=== PATIENT | male | born 1960 | race Caucasian/White ===

== ENCOUNTER → 2017-10-29 09:28 | Outpatient (CLI) | payer OTHER, SELFPAY ==
[2017-10-29 12:32] LABS: Anion Gap 8 (5-15); BUN 21 mg/dL (7-18); BUN/Creat Ratio 16.5 RATIO (10-20); Calcium,Total 8.9 mg/dL (8.5-10.1); Chloride 102 mmol/L (98-107); Cholesterol 130 mg/dL (200); Creatinine, Serum 1.27 mg/dL (0.70-1.30); EST Glomerular Filtration Rate 62 mL/min (>60); Est Glom Filt Rate - Afr Amer 75 mL/min (>60); Glucose 215 mg/dL (74-106); High Density Lipoprotein 54 mg/dL; Potassium 4.2 mmol/L (3.5-5.1); Sodium Level 138 mmol/L (136-145); Triglycerides 83 mg/dL; Very Low Density Lipoprotein 17 mg/dL (5-40)
[2017-10-29 12:43] LABS: Hemoglobin A1c 7.2 % (4.2-6.3)
== END ==
PROVIDERS: Family Provider Family Medicine; PCP Family Medicine; Visit Provider Family Medicine
DX: E11.9 Type 2 diabetes mellitus without complications (principal); E78.00 Pure hypercholesterolemia, unspecified; N18.9 Chronic kidney disease, unspecified
CPT/HCPCS: 36415; 80048; 80061; 83036

== ENCOUNTER → 2018-06-29 09:43 | Outpatient (CLI) | payer OTHER, SELFPAY ==
[2018-06-29 11:04] LABS: Absolute Lymphocyte Count 1.73 X10^3/ul (0.83-4.51); Absolute Neutrophil Count 3.2 X10^3/uL (2.0-7.7); Basophil# 0.03 X10^3/uL; Basophil% 0.5 % (0-1); Eosinophil# 0.13 X10^3/uL; Eosinophils% 2.3 % (0-5); Hematocrit 45.7 % (40-54); Hemoglobin 15.9 g/dl (13.0-16.5); Lymphocyte # 1.73 X10^3/ul (4.0); Lymphocyte % 30.7 % (19-41); Mean Corp Hgb Conc 34.8 g/gl (32-36); Mean Corpuscular Hgb 31.7 pg (27.0-32.0); Mean Corpuscular Volume 91.2 fL (80-94); Mean Platelet Vol. 9.1 fl (6.2-12.0); Monocyte# 0.49 X10^3/uL; Monocyte% 8.7 % (0-10); Neutrophil # 3.24 X10^3/uL (2.7-7.7); Neutrophil % 57.6 % (47-70); Platelet Count 208 K/mm3 (150-450); RBC Distribution Width CV 12.6 % (11.6-14.6); RBC Distribution Width SD 40.9 fl (35.1-43.9); Red Blood Count 5.01 M/mm3 (4.6-6.2); White Blood Count 5.6 K/mm3 (4.4-11.0)
[2018-06-29 11:05] LABS: POSITIVE COUNT NO; POSITIVE DIFFERENTIAL NO; POSITIVE MORPHOLOGY NO
[2018-06-29 11:40] LABS: ALB/GLOB Ratio 0.9 RATIO (0.9-2.4); AST(SGOT) 20 U/L (15-37); Alanine Aminotransfer ALT/SGPT 34 U/L (16-61); Albumin, Serum 3.3 g/dL (3.2-5.0); Alkaline Phosphatase 53 U/L (45-117); Anion Gap 6 (5-15); BUN 19 mg/dL (7-18); BUN/Creat Ratio 15.3 RATIO (10-20); Calcium,Total 8.2 mg/dL (8.5-10.1); Chloride 106 mmol/L (98-107); Cholesterol 126 mg/dL (200); Creatinine, Serum 1.24 mg/dL (0.70-1.30); EST Glomerular Filtration Rate 64 mL/min (>60); Est Glom Filt Rate - Afr Amer 77 mL/min (>60); Globulin 3.7 g/dL (2.2-4.2); Glucose 201 mg/dL (74-106); High Density Lipoprotein 51 mg/dL; Potassium 4.1 mmol/L (3.5-5.1); Sodium Level 138 mmol/L (136-145); Thyroid Stim Hormone (TSH) 1.65 uIU/mL (0.358-3.74); Triglycerides 73 mg/dL; Very Low Density Lipoprotein 15 mg/dL (5-40)
[2018-06-29 11:43] LABS: Hemoglobin A1c 7.1 % (4.2-6.3)
== END ==
PROVIDERS: Family Provider Family Medicine; PCP Family Medicine; Referring Provider Family Medicine; Visit Provider Family Medicine
DX: E11.9 Type 2 diabetes mellitus without complications (principal); E78.00 Pure hypercholesterolemia, unspecified; F32.9 Major depressive disorder, single episode, unspecified
CPT/HCPCS: 36415; 80053; 80061; 83036; 84443; 85025

== ENCOUNTER → 2019-06-30 16:32 | Outpatient (CLI) | payer OTHER, SELFPAY ==
[2019-06-30 17:32] LABS: Absolute Lymphocyte Count 2.01 X10^3/uL (0.83-4.51); Absolute Neutrophil Count 5.7 X10^3/uL (2.0-7.7); Basophil# 0.07 X10^3/uL; Basophil% 0.8 % (0-1); Eosinophil# 0.31 X10^3/uL; Eosinophils% 3.5 % (0-5); Hematocrit 47.2 % (40-54); Hemoglobin 15.5 g/dL (13.0-16.5); Lymphocyte # 2.01 X10^3/ul (4.0); Mean Corp Hgb Conc 32.8 g/dL (32-36); Mean Corpuscular Hgb 30.3 pg (27.0-32.0); Mean Corpuscular Volume 92.4 fL (80-94); Monocyte# 0.62 X10^3/uL; Monocyte% 7.1 % (0-10); NRBC Flagged by Analyzer 0 % (0-5); Neutrophil # 5.71 X10^3/uL (2.7-7.7); Neutrophil % 65.4 % (47-70); Platelet Count 210 K/mm3 (150-450); RBC Distribution Width CV 12.1 % (11.6-14.6); RBC Distribution Width SD 41.2 fl (35.1-43.9); Red Blood Count 5.11 M/mm3 (4.6-6.2); White Blood Count 8.7 K/mm3 (4.4-11.0)
[2019-06-30 18:24] LABS: AST(SGOT) 16 U/L (15-37); Alanine Aminotransfer ALT/SGPT 37 U/L (16-61); Albumin, Serum 3.6 g/dL (3.2-5.0); Alkaline Phosphatase 66 U/L (45-117); Anion Gap 7 (5-15); BUN 29 mg/dL (7-18); Calcium,Total 9.2 mg/dL (8.5-10.1); Chloride 104 mmol/L (98-107); Creatinine, Serum 1.45 mg/dL (0.70-1.30); EST Glomerular Filtration Rate 53 mL/min (>60); Est Glom Filt Rate - Afr Amer 64 mL/min (>60); Globulin 3.7 g/dL (2.2-4.2); Glucose 245 mg/dL (74-106); Protein, Total 7.3 g/dL (6.4-8.2); Sodium Level 138 mmol/L (136-145); Thyroid Stim Hormone (TSH) 2.32 uIU/mL (0.358-3.74)
== END ==
PROVIDERS: Family Provider Family Medicine; PCP Family Medicine; Visit Provider Family Medicine
DX: E11.9 Type 2 diabetes mellitus without complications (principal); I10 Essential (primary) hypertension; E78.00 Pure hypercholesterolemia, unspecified
CPT/HCPCS: 36415; 80053; 84443; 85025

== ENCOUNTER → 2019-07-28 14:56 | Outpatient (CLI) | payer OTHER, SELFPAY ==
[2019-07-28 17:37] LABS: Anion Gap 7 (5-15); BUN 24 mg/dL (7-18); BUN/Creat Ratio 18.2 RATIO (10-20); Calcium,Total 8.9 mg/dL (8.5-10.1); Chloride 107 mmol/L (98-107); Creatinine, Serum 1.32 mg/dL (0.70-1.30); EST Glomerular Filtration Rate 59 mL/min (>60); Est Glom Filt Rate - Afr Amer 71 mL/min (>60); Glucose 103 mg/dL (74-106); Potassium 3.7 mmol/L (3.5-5.1); Sodium Level 138 mmol/L (136-145)
== END ==
PROVIDERS: Family Provider Family Medicine; PCP Family Medicine; Visit Provider Family Medicine
DX: I10 Essential (primary) hypertension (principal)
CPT/HCPCS: 36415; 80048

== ENCOUNTER → 2020-07-06 16:25 | Outpatient (CLI) | payer OTHER, SELFPAY ==
[2020-07-06 16:10] VITALS: BMI 41.3
[2020-07-06 17:41] LABS: Microalbumin:Creatinine Ratio 57.1 mg/g CRE (<30 mg/g CRE)
[2020-07-06 17:53] LABS: AST(SGOT) 26 U/L (15-37); Alanine Aminotransfer ALT/SGPT 44 U/L (16-61); Albumin, Serum 3.6 g/dL (3.2-5.0); Alkaline Phosphatase 61 U/L (45-117); Anion Gap 6 (5-15); BUN 33 mg/dL (7-18); BUN/Creat Ratio 24.1 RATIO (10-20); Calcium,Total 8.7 mg/dL (8.5-10.1); Chloride 107 mmol/L (98-107); Cholesterol 139 mg/dL (200); Creatinine, Serum 1.37 mg/dL (0.70-1.30); EST Glomerular Filtration Rate 56 mL/min (>60); Est Glom Filt Rate - Afr Amer 68 mL/min (>60); Globulin 3.7 g/dL (2.2-4.2); Glucose 142 mg/dL (74-106); High Density Lipoprotein 48 mg/dL; Potassium 3.8 mmol/L (3.5-5.1); Protein, Total 7.3 g/dL (6.4-8.2); Sodium Level 141 mmol/L (136-145); Thyroid Stim Hormone (TSH) 1.99 uIU/mL (0.358-3.74); Triglycerides 155 mg/dL; Very Low Density Lipoprotein 31 mg/dL (5-40)
== END ==
PROVIDERS: PCP Family Medicine; Referring Provider Internal Medicine Endocrinology, Diabetes & Metabolism; Visit Provider Internal Medicine Endocrinology, Diabetes & Metabolism
DX: E11.9 Type 2 diabetes mellitus without complications (principal); I10 Essential (primary) hypertension; E78.2 Mixed hyperlipidemia
CPT/HCPCS: 36415; 80053; 80061; 82043; 82570; 84443

== ENCOUNTER → 2021-06-15 | Outpatient (CLI) | payer OTHER, SELFPAY | END | disposition home or self-care (01) | PROVIDERS: PCP Family Medicine; Referring Provider Family Medicine; Visit Provider Family Medicine | DX: Z20.822 Contact with and (suspected) exposure to COVID-19 (principal) | CPT/HCPCS: 87635; U0005; U0003 ==

== ENCOUNTER → 2021-08-16 15:12 | Outpatient (CLI) | payer OTHER, SELFPAY ==
--- NOTE | 2021-08-16 15:20 | RAD_ITS ---
STUDY: X-RAY - LUMBAR SPINE REASON FOR EXAM: Male, 61 years old. Back pain TECHNIQUE: 3 view(s) of the lumbar spine were obtained. COMPARISON: None FINDINGS: Normal lumbar lordosis. There is no substantial scoliosis. There is a normal alignment of the vertebrae. There is multilevel endplate spondylosis of the lumbar vertebrae. Normal disc space heights. The soft tissue structures are unremarkable. RAD/Lumbar Spine 2 or 3 Views IMPRESSION: Degenerative changes of the spine, as detailed above. Electronically Signed: Rosales Hidalgo MD at 12:20 EST , Service support ,
== END ==
PROVIDERS: PCP Family Medicine; Referring Provider Internal Medicine Endocrinology, Diabetes & Metabolism; Visit Provider Internal Medicine Endocrinology, Diabetes & Metabolism
DX: M54.50 Low back pain, unspecified (principal); R20.2 Paresthesia of skin
CPT/HCPCS: 72100

== ENCOUNTER → 2021-09-06 12:09 | Outpatient (CLI) | payer OTHER, SELFPAY ==
--- NOTE | 2021-09-06 12:50 | RAD_ITS ---
STUDY: X-RAY - LEFT KNEE REASON FOR EXAM: Male, 61 years old. Knee pain. TECHNIQUE: 4 view(s) of the knee. COMPARISON: None. FINDINGS: Osteopenia. Normal visualized distal femur. Normal visualized proximal tibia and fibula. Normal proximal tibiofibular articulation. Mild medial, lateral and patellofemoral compartment arthrosis. Lateral tilt and subluxation of the patella on the sunrise view. The soft tissue structures are unremarkable. RAD/Knee 4 or More Views IMPRESSION: Osteopenia with mild tricompartmental arthrosis. No acute finding. Electronically Signed: Farhad West MD at 10:35 EST , Service support ,
== END ==
PROVIDERS: PCP Family Medicine; Referring Provider Family Medicine; Visit Provider Family Medicine
DX: M25.562 Pain in left knee (principal)
CPT/HCPCS: 73564

== ENCOUNTER → 2022-01-17 | Outpatient (CLI) | payer OTHER, SELFPAY ==
[2022-01-17 17:29] LABS: Microalbumin,Random Urine 53.5 mg/L (NO RANGE EST.)
[2022-01-17 17:47] LABS: Vitamin D,25 Hydroxy 57.7 ng/mL
[2022-01-17 17:50] LABS: Vitamin B12 550 pg/mL (211-911)
[2022-01-17 17:56] LABS: AST(SGOT) 22 U/L (15-37); Alanine Aminotransfer ALT/SGPT 42 U/L (16-61); Albumin, Serum 3.5 g/dL (3.2-5.0); Alkaline Phosphatase 71 U/L (45-117); Anion Gap 7 (5-15); BUN 24 mg/dL (7-18); BUN/Creat Ratio 18.3 RATIO (10-20); Calcium,Total 8.9 mg/dL (8.5-10.1); Chloride 107 mmol/L (98-107); Cholesterol 123 mg/dL (200); Creatinine, Serum 1.31 mg/dL (0.70-1.30); EST Glomerular Filtration Rate 59 mL/min (>60); Est Glom Filt Rate - Afr Amer 71 mL/min (>60); Globulin 3.5 g/dL (2.2-4.2); Glucose 230 mg/dL (74-106); High Density Lipoprotein 50 mg/dL; Sodium Level 139 mmol/L (136-145); Thyroid Stim Hormone (TSH) 1.53 uIU/mL (0.358-3.74); Triglycerides 117 mg/dL; Very Low Density Lipoprotein 23 mg/dL (5-40)
== END | disposition home or self-care (01) ==
LOC: BIMLAB 16:20
PROVIDERS: Nurse Practitioner Family; PCP Family Medicine; Referring Provider Internal Medicine Endocrinology, Diabetes & Metabolism; Visit Provider Internal Medicine Endocrinology, Diabetes & Metabolism
DX: E10.65 Type 1 diabetes mellitus with hyperglycemia (principal); E66.01 Morbid (severe) obesity due to excess calories; Z68.41 Body mass index [BMI] 40.0-44.9, adult; I10 Essential (primary) hypertension; E78.2 Mixed hyperlipidemia
CPT/HCPCS: 36415; 80053; 80061; 82043; 82306; 82570; 82607; 84443

== ENCOUNTER → 2022-07-24 | Outpatient (CLI) | payer OTHER, SELFPAY ==
[2022-07-24 18:15] LABS: Absolute Lymphocyte Count 1.63 X10^3/uL (0.83-4.51); Absolute Neutrophil Count 5.2 X10^3/uL (2.0-7.7); Basophil# 0.05 X10^3/uL; Basophil% 0.6 % (0-1); Eosinophil# 0.22 X10^3/uL; Eosinophils% 2.8 % (0-5); Hematocrit 43.4 % (40-54); Hemoglobin 14.3 g/dL (13.0-16.5); Lymphocyte # 1.63 X10^3/ul (0.83-4.51); Mean Corp Hgb Conc 32.9 g/dL (32-36); Mean Corpuscular Hgb 31.5 pg (27.0-32.0); Mean Corpuscular Volume 95.6 fL (80-94); Mean Platelet Vol. 8.5 fl (6.2-12.0); Monocyte# 0.69 X10^3/uL; Monocyte% 8.9 % (0-10); NRBC Flagged by Analyzer 0 % (0-5); Neutrophil # 5.15 X10^3/uL (2.7-7.7); Neutrophil % 66.4 % (47-70); Platelet Count 187 K/mm3 (150-450); RBC Distribution Width CV 11.8 % (11.6-14.6); RBC Distribution Width SD 41.3 fl (35.1-43.9); Red Blood Count 4.54 M/mm3 (4.6-6.2); White Blood Count 7.8 K/mm3 (4.4-11.0)
[2022-07-24 18:43] LABS: ALB/GLOB Ratio 0.9 RATIO (0.9-2.4); AST(SGOT) 17 U/L (15-37); Alanine Aminotransfer ALT/SGPT 43 U/L (16-61); Albumin, Serum 3.3 g/dL (3.2-5.0); Alkaline Phosphatase 57 U/L (45-117); Anion Gap 6 (5-15); BUN 23 mg/dL (7-18); BUN/Creat Ratio 17.8 RATIO (10-20); Chloride 107 mmol/L (98-107); Creatinine, Serum 1.29 mg/dL (0.70-1.30); EST Glomerular Filtration Rate 60 mL/min (>60); Est Glom Filt Rate - Afr Amer 73 mL/min (>60); Globulin 3.8 g/dL (2.2-4.2); Glucose 120 mg/dL (74-106); Potassium 3.8 mmol/L (3.5-5.1); Protein, Total 7.1 g/dL (6.4-8.2); Sodium Level 141 mmol/L (136-145)
== END | disposition home or self-care (01) ==
LOC: BFHLAB 15:57
PROVIDERS: PCP Family Medicine; Visit Provider Family Medicine
DX: E11.9 Type 2 diabetes mellitus without complications (principal); I10 Essential (primary) hypertension
CPT/HCPCS: 36415; 80053; 85025

== ENCOUNTER 2022-08-31 15:30 | Outpatient (RCR) | payer OTHER, SELFPAY ==
--- NOTE | 2022-07-11 16:22 | HP.PTEVAL_ITS ---
Patient's Visit Information VLAD JUSTICE is a 62 year old M referred to Physical Therapy by Dr. Chris Booker MD with a diagnosis of spondylosis. Date of Evaluation: 07/11/22 Physical Therapist: Martín Preciado, DPT, OCS, CSCS - Visit Plan Frequency: 2-3x /Week Duration: 4-6 Weeks Plan: 2-3x/week for 4-6 weeks for. 1. eil and mobs, ensure this is the proper repeated motion based on pain response and ROM. 2. rollout and stretch quads and HS B. 3. core strength progressing to yoga stretching back and legs. All to HEP. Pt may bring TENS for education and to get back brace from store - Subjective Stenosis , OA and bulging herniation in LB. Gets pain around tailbone and back of upper legs B. It is mostly constant. sitting in a soft chair or lying down gets rid of it. This has been there since December as he fell off platform in [facility], did not hurt right away but did in December(He missed a bottom step and landed on butt). Since then he can hardly walk in am and needs to sit in soft chair in am to feel better. Meds: nebulotone whcih helps some. Had six injections in back last Sunday steroid and it helped very little. Although today he had very little pain this morning. Takes antiinflammotry in am and pm. Then he says he might get a few hours of pain relief sitting in chair. 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 Basic ADLs are getting done, Live alone and has steps whcih he can do with pain. 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 Outdoor work is painful and needs to sit. - Pain LB and legs Pain Intensity (Out of 10): 0 Pain Intensity Range: 0, 9 Comment: wearing belt helps - Objective Posture is flat lordosis, kyphotic T/S. LB AROM ext max limited, R SB limited greater than L and painful R let hip, flexion very tight, no pain. reflexes 1/3 patella and achilles B. sensation LE WBL to gross light touch in LE. Strength LE 4/5 B without myotomal abnormalities. quads and HS are max tight. repeated ext in lying seems to improve pain and ROM in extension. - Balance/Special Test Scores Oswestry Low Back Score: 11 - Goals Goal 1:: Full ROM L/S including symmetry and no pain with movement Goal Time Frame: 4-6 Weeks Goal 2:: Patient feel pain is 75% improved adn 2/10 at worst Goal Time Frame: 4-6 Weeks Goal 3:: Work with pain no greater than 2/10 Goal Time Frame: 2-4 Weeks Goal 4:: I management of condition ex and posture. Goal Time Frame: 4-6 Weeks Goal 5:: oswestry score 5 or better Goal 6:: Pt may bring tens for education and is to get back brace from store. - Rehabilitation Potential Physical Therapy Diagnosis: Discal pathologies and spondylosis Rehabilitation Potential: Fair - Anticipated Interventions Patient/Client Instruction: Educate patient on: Condition, Plan of Care For the Purpose of:: To decrease pain, To increase ROM, To improve muscle performance and motor function, To increase tolerance to activity/condition/position Therapeutic Exercise to Include: Strength training, Agility training, Postural training, Flexibilty training, Passive ROM, Active ROM, Dynamic Lumbar Stabilization For the Purpose of:: To decrease pain, To increase ROM, To improve muscle performance and motor function, To increase tolerance to activity/condition/position, To improve ability of physical actions for home/community/work/leisure Manual Therapy Techniques to Include: Mobilization, Passive ROM, Soft tissue mobilization For the Purpose of:: To increase ROM TENS: Yes For the Purpose of:: To decrease pain Thank you for the opportunity to evaluate your patient. For Medicare and Medicare HMO plans, please review the plan of care and approve it. It will need to be FAXED BACK to us at [phone] for Medicare purposes. For Medicare only, by signing this I certify the plan of care. Please let me know if there are questions or concerns regarding this plan of care. Physician Signature: Date:
--- NOTE | 2022-08-31 16:03 | HP.PTDCSUM ---
It has been my pleasure to treat VLAD JUSTICE referred by Dr. Chris Booker MD, with the diagnosis of spondylosis for a total of 14 visit(s). Discharge Date: 08/31/22 Please see the following information for a summary of their discharge status. Subjective: Saw Dr. Cancino Sunday and bumped up his Lyrica. Still having hard time walking due to leg pain in am for one hour then it loosens up until later in the day. Pt feels better today except this am. Sleep is good and no pain lying down. sitting down i soft chair alleviates pain. work is Ok after first hour in the am, evenings are OK much of time. Not consistent with HEP. Pain is in L leg in am, no unusual back pain. Not much pain when he is on vacation. LB and legs Pain Intensity (Out of 10): 10 % Improvement: 10 Objective/Function: ext is good without pain, flexion is fine, SB is not painful. Walks i and well today, it is a good day. Has some signs of R hip OA whcih might be appropriate to checkout, +FADDIR and limited IR ROM. Worst is first thing in the am. Goal 1:: Full ROM L/S including symmetry and no pain with movement Goal Progress: Goal Met Goal 2:: Patient feel pain is 75% improved adn 2/10 at worst Goal Progress: Not Progressing Goal 3:: Work with pain no greater than 2/10 Goal Progress: Progressing Goal 4:: I management of condition ex and posture. Goal Progress: Goal Met Goal 5:: oswestry score 5 or better Goal Progress: Not Progressing Goal 6:: Pt may bring tens for education and is to get back brace from store. Goal Progress: NA Plan: d/c to HEp. Pt frustrated with lack f progress buit will try lyrical dosage and another injection adn continue with HEP. If no other options and hip is clear, more water therapy or more aggressive strength may be helpful in gy,/ If there are questions or concerns regarding this patient's physical therapy, please feel free to call me at [phone]. Thank you for the referral of this patient. Sincerely, Martín Preciado, DPT, OCS, CSCS Balance/Gait/Functional tests - Balance/Special Test Scores Oswestry Low Back Score: 15
== END 2022-08-31 19:00 | disposition home or self-care (01) ==
LOC: PT 15:30
PROVIDERS: PCP Family Medicine; Referring Provider Internal Medicine Endocrinology, Diabetes & Metabolism; Visit Provider Internal Medicine Endocrinology, Diabetes & Metabolism
DX: M47.816 Spondylosis without myelopathy or radiculopathy, lumbar region (principal)
CPT/HCPCS: 97110; 97113; 97140; 97161; 97164; 97530

== ENCOUNTER → 2023-01-18 | Outpatient (CLI) | payer OTHER, SELFPAY ==
[2023-01-18 16:40] LABS: Bacteria 0 SEEN /hpf (None Seen); Mucous, Urine 0 SEEN /hpf (<or=2+); Red Blood Cells-Urine 0 SEEN /hpf (0-5); Squamous Epithelial Cells - UA 0 SEEN /hpf (0-5); White Blood Cells 0 SEEN /hpf (0-5)
[2023-01-18 18:08] LABS: Absolute Lymphocyte Count 1.32 X10^3/uL (0.83-4.51); Basophil# 0.07 X10^3/uL; Basophil% 1.1 % (0-1); Eosinophil# 0.11 X10^3/uL; Eosinophils% 1.8 % (0-5); Hematocrit 45.3 % (40-54); Hemoglobin 15.1 g/dL (13.0-16.5); Lymphocyte # 1.32 X10^3/ul (0.83-4.51); Lymphocyte % 21.6 % (19-41); Mean Corp Hgb Conc 33.3 g/dL (32-36); Mean Corpuscular Hgb 30.9 pg (27.0-32.0); Mean Corpuscular Volume 92.6 fL (80-94); Mean Platelet Vol. 8.9 fl (6.2-12.0); Monocyte# 0.63 X10^3/uL; Monocyte% 10.3 % (0-10); NRBC Flagged by Analyzer 0 % (0-5); Neutrophil # 3.97 X10^3/uL (2.7-7.7); Neutrophil % 65.2 % (47-70); Platelet Count 201 K/mm3 (150-450); RBC Distribution Width CV 12.4 % (11.6-14.6); RBC Distribution Width SD 42.3 fl (35.1-43.9); Red Blood Count 4.89 M/mm3 (4.6-6.2); White Blood Count 6.1 K/mm3 (4.4-11.0)
[2023-01-18 18:38] LABS: Color, Urine Yellow (Yellow); Glucose, Dipstick 250 mg/dl (Normal); Ketone-Dipstick Negative (Negative); Leukocyte Esterase-Dipstick Negative /ul (Negative); Nitrite-Dipstick Negative (Negative); Occult Blood-Urine Negative /ul (Negative); Protein-Dipstick 30 mg/dl (Negative); Specific Gravity, Urine 1.025 (1.002-1.030); Urine Bilirubin Dipstick Negative (Negative); Urine Clarity Clear (Clear); Urine Urobilinogen Normal (Normal)
[2023-01-18 19:15] LABS: Hemoglobin A1c 6.9 % (3.8-5.6)
[2023-01-18 19:19] LABS: Microalbumin:Creatinine Ratio 115.8 mg/g CRE (<30 mg/g CRE); Protein, Urine (Random) 39.6 mg/dL (<11.9); Protein:Creat Ratio 261 mg/g CRE (0-200)
[2023-01-18 19:20] LABS: ALB/GLOB Ratio 1.1 RATIO (0.9-2.4); AST(SGOT) 32 U/L (15-37); Alanine Aminotransfer ALT/SGPT 51 U/L (16-61); Albumin, Serum 3.8 g/dL (3.2-5.0); Alkaline Phosphatase 57 U/L (45-117); Anion Gap 6 (5-15); BUN 23 mg/dL (7-18); Calcium,Total 9.2 mg/dL (8.5-10.1); Chloride 109 mmol/L (98-107); Cholesterol 129 mg/dL (200); Creatinine, Serum 1.44 mg/dL (0.70-1.30); EST Glomerular Filtration Rate 53 mL/min (>60); Est Glom Filt Rate - Afr Amer 64 mL/min (>60); Globulin 3.5 g/dL (2.2-4.2); Glucose 142 mg/dL (74-106); High Density Lipoprotein 47 mg/dL; Phosphorus 2.6 mg/dL (2.5-4.9); Potassium 3.6 mmol/L (3.5-5.1); Protein, Total 7.3 g/dL (6.4-8.2); Sodium Level 140 mmol/L (136-145); T4 Free Direct 0.97 ng/dL (0.76-1.46); Thyroid Stim Hormone (TSH) 1.63 uIU/mL (0.358-3.74); Triglycerides 160 mg/dL; Very Low Density Lipoprotein 32 mg/dL (5-40)
[2023-01-18 19:36] LABS: Vitamin D,25 Hydroxy 73.8 ng/mL
[2023-01-19 10:08] LABS: PTHIN 28.1 pg/mL (18.4-80.1)
[2023-01-22 18:07] LABS: Anti-Thyroglobulin AB < 1.0 IU/mL (0.0-0.9); Thyroglobulin, Serum Qt. 26.7 ng/mL (1.4-29.2); Thyroid Peroxidase AB 22 IU/mL (0-34)
== END | disposition home or self-care (01) ==
LOC: MFPLAB 16:29
PROVIDERS: PCP Family Medicine; Visit Provider Family Medicine
DX: N18.30 Chronic kidney disease, stage 3 unspecified (principal); E11.69 Type 2 diabetes mellitus with other specified complication; E11.59 Type 2 diabetes mellitus with other circulatory complications; E11.22 Type 2 diabetes mellitus with diabetic chronic kidney disease; E55.9 Vitamin D deficiency, unspecified
CPT/HCPCS: 80053; 80061; 81001; 82043; 82306; 82570; 83036; 83970; 84100; 84156; 84432; 84439; 84443; 85025; 86376; 86800

== ENCOUNTER → 2023-01-23 | Outpatient (CLI) | payer OTHER, SELFPAY ==
--- NOTE | 2023-01-23 09:00 | US_ITS ---
STUDY: THYROID ULTRASOUND REASON FOR EXAM: Male, 63 years old. Nodule. TECHNIQUE: Ultrasound evaluation of the thyroid was performed with real-time and static santana-scale imaging. COMPARISON: None. FINDINGS: RIGHT LOBE: The right lobe of the thyroid gland measures 5.2 x 2.1 x 2.2 cm. There is a homogeneous echotexture. In the mid to lower pole there is a 0.3 x 0.4 x 0.3 cm hypoechoic ill-defined nodule. This appears taller than it is wide in the lower pole there is a 0.4 x 0.3 x 0.3 cm hyperechoic nodule without acoustic shadowing. Normal vascularity on Doppler imaging. LEFT LOBE: The left lobe of the thyroid gland measures 3.6 x 1.3 x 1.5 cm. There is a homogeneous echotexture. There are no demonstrated solid, cystic or complex lesions. Normal vascularity on Doppler imaging. There is limited evaluation of left thyroid due to its extension below the left clavicle secondary to body habitus. ISTHMUS: The isthmus measures 0.3 cm. The regional lymph nodes are normal. US/Thyroid IMPRESSION: 1. Limited evaluation due to body habitus. 2. 2. Small nodules in the right thyroid. 3. The hypoechoic nodule seen in the mid thyroid is considered highly suspicious right BI-RADS categorization, TR 5. No FNA or follow-up is necessary given its small size. 4. The echogenic nodule is considered mildly suspicious, TR 5. 3. No FNA or follow-up is required due to its small size. Electronically Signed: Jarad Page DO at 17:08 EDT ,
--- NOTE | 2023-01-23 12:39 | STRESSREP ---
Stress Test Report Pharmacologic myocardial perfusion stress test. 63-year-old man for preoperative cardiac evaluation Resting EKG demonstrates sinus rhythm with a rate of 76 bpm and an incomplete right bundle branch block. Resting blood pressure is 130/72 mmHg. 0.4 mg of regadenoson was infused per usual protocol followed by rapid intravenous saline flush injection. Continuous EKG monitoring was performed. The maximum heart rate was 104 bpm which was 66% of max impacted heart rate the maximum workload was 1 metabolic equivalent. At rest there were no ST or T wave changes noted to suggest ischemia and at peak infusion nonspecific ST changes were noted which did not meet the criteria for ischemia. No clinical angina is noted. The final blood pressure was 124/72 mmHg. Myocardial perfusion protocol. 14.3 mCi of technetium 99m sestamibi was injected at rest. 0.4 mg of regadenoson was infused per usual protocol. At peak infusion 44.6 mCi of technetium 99m sestamibi was injected stress images were obtained stress and rest images were reconstructed and compared in the short axis vertical long and horizontal long axis. Gated images were also obtained. Perfusion SPECT analysis: Review of the stress images demonstrate normal uptake of tracer noted in all areas of the myocardium. The resting images similar demonstrated normal uptake of tracer noted in all areas of the myocardium. No areas of reversibility are noted to suggest ischemia and no previous infarct is noted. Gated SPECT analysis: The gated ejection fraction is 58%. Conclusion: Normal pharmacologic myocardial perfusion stress test. Preserved ejection fraction.
== END | disposition home or self-care (01) ==
LOC: CVS 06:36
PROVIDERS: PCP Family Medicine; Referring Provider Family Medicine; Visit Provider Family Medicine
DX: E04.1 Nontoxic single thyroid nodule (principal); R94.31 Abnormal electrocardiogram [ECG] [EKG]
CPT/HCPCS: 76536; 78452; 93017; A9500; A4216; J2785

== ENCOUNTER → 2023-03-29 | Outpatient (CLI) | payer OTHER, SELFPAY ==
--- NOTE | 2023-03-29 11:40 | NM_ITS ---
CLINICAL: 63-year-old diabetic male with history of early satiety. SEMI-SOLID PHASE 99m Tc SULFUR COLLOID GASTRIC EMPTYING STUDY COMPARISON: None available FINDINGS: The patient was administered 1.1 mCi of 99m Tc sulfur colloid mixed with oatmeal and consumed per os. Image acquisitions in the anterior-posterior projections were obtained for 60 minutes. There is prompt visualization of the stomach. There is no gastroesophageal reflux identified. The T ? raw data emptying was calculated to be 26.99 minutes, (Normal: 12-56 minutes). NM/Gastric Emptying Study IMPRESSION: 1. NORMAL 99m Tc sulfur colloid semi-solid phase (oatmeal) gastric emptying imaging examination. A. There is normal and preserved semi-solid phase gastric emptying compared to normal controls. (Shubham et al, J Nucl Med Tech 38: 186, 2010). Electronically Signed: Carlin Kenyon, at 21:09 EDT ,
== END | disposition home or self-care (01) ==
PROVIDERS: PCP Family Medicine; Referring Provider Family Medicine; Visit Provider Family Medicine
DX: R68.81 Early satiety (principal); E11.649 Type 2 diabetes mellitus with hypoglycemia without coma
CPT/HCPCS: 78264; A9541

== ENCOUNTER 2023-05-15 08:30 | Outpatient (RCR) | payer OTHER, SELFPAY ==
--- NOTE | 2023-04-11 14:09 | HP.PTEVAL_ITS ---
Patient's Visit Information Visit Information Visit Information: VLAD JUSTICE is a 63 year old M referred to Physical Therapy by NIK JACKSON with a diagnosis of L45 POST LUM FUSION W/INSTRU AND DECOMPRESSION. Date of Evaluation: 04/11/23 Physical Therapist: Carley Dickinson, PT, Cert MDT Visit Plan Frequency: 3x /Week Duration: 4-6 Weeks Plan: POSTURE CORRECTION/STRENGTHENING, INSTRUCTION IN APPROPRIATE BODY MECHANICS AND ACTIVITY MODIFICATIONS. 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 CONDITIONING FOR RETURN TO WORK. DLS STARTING WITH A NEUTRAL SPINE PROGRESSING ROM TOLERATED. ANGEL LE ROM, STRETCHING AND STRENGTHENING. HEP INSTRUCTION. 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 A LOT OF LIFTING IS INVOLVED. CURRENTLY OFF WORK. RTW PLANNED 05/16/23. Present symptoms: NO SX'S UNLESS ON FEET TOO LONG THEN BACK AND HIPS ACHE. ON LYRICA NOW. TRIED TO GO OFF OF IT FOR A WK AND ACHING IN LEGS (INCLUDING CALF'S) RETURNED SO WENT BACK ON IT. PATIENT REPORTS HE COULD BARELY WALK BEFORE SX AND RELIEF WAS IMMEDIATE AFTER SURGERY. Present since: NOVEMBER 2021 Pain Scale: WORST 4/10, LEAST 0/10 Currently: 0/10 Is it getting better, worse or staying the same: GETTING BETTER Commenced as a result of: FALL OFF OF A PLATFORM AT WORK. Symptoms at onset: LLE ACHING ABOUT 1 MONTH AFTER FALL Worse: STANDING AND WALKING Better: SITTING Disturbed sleep: SOMETIMES Previous history/Previous treatment: PATIENT REPORTS A HISTORY OF CHRONIC LBP TREATED WITH CHIROPRACTIC. AFTER FALL TRIED AQUATIC PT AND HARIS'S BUT STILL ENDED UP NEEDING SURGERY. Treatment this episode: POSTERIOR LUMBAR FUSION L45 WITH INSTRUMENTATION AND DECOMPRESSION ON 02/13/23 Gait: TIME AND DISTANCE LIMITED. GETS ACHING WITH 30 MIN WALK PMH/Recent major surgery: IDDM. L MENISCUS REPAIR. ANGEL CTR. OTHER: PHYSICIAN RESTRICTION - NO LIFTING > 30 TO 40 LBS UNTIL 05/16/23 THEN NO RESTRICTIONS. Objective Objective: Sitting/Standing Posture: FAIR. R SHLD LEVEL HIGHER THAN LEFT. NORMAL LORDOSIS. NO RELEVANT LATERAL SHIFT. Active Correction of posture: BETTER. PATIENT RESPONDS WELL TO PASSIVE LUMBAR SUPPORT IN SITITNG IN CLINIC TODAY. Other Observations: INDEP GAIT AND TRANSFERS Sensory deficit: ANGEL LE LIGHT TOUCH SENSATION GROSSLY INTACT AND SYMMETRICAL ROM deficit: ANGEL LE HS AND GASTROC SOLEUS TIGHTNESS Motor deficit: ANGEL LE'S GROSSLY 5/5 WITH MMT'ING EXCEPT HIPS 4/5 Dural Signs: NEGATIVE ANGEL LE'S. Lumbar mvmt loss: flex - MOD ext - MOD TO KATINA R SG - KATINA L SG - MOD Core strength: POOR TREATMENT: NEUROMUSCULAR REEDUCATION - RETRAINING OF MVMT AND POSTURE FOR SITTING, LYING AND STANDING ACTIVITIES. Balance/Special Test Scores Oswestry Low Back Score: 17 Goals Goal 1:: DECREASE C/O LOW BACK PAIN (RECENT LE SX'S BUT NOT NOW WHILE BACK ON LYRICA) Goal Time Frame: 4-6 Weeks Goal 2:: IMPROVE LIFTING, WALKING, SITTING, STANDING, SOCIAL LIFE, TRAVEL AND HOMEMAKING/WIRK FUNCTION Goal Time Frame: 4-6 Weeks Goal 3:: INSTRUCT IN PROPHYLAXIS Goal Time Frame: 4-6 Weeks Anticipated Interventions Patient/Client Instruction: Educate patient on: Condition, Plan of Care and Risk Factors For the Purpose of:: To improve self management Therapeutic Exercise to Include: Strength training, Endurance training, Body mechanics, Postural training, Flexibilty training, Neuromotor development and Dynamic Lumbar Stabilization For the Purpose of:: To decrease pain, To increase ROM, To improve muscle performance and motor function, To increase tolerance to activity/condition/position and To improve ability of physical actions for home/community/work/leisure Text: Thank you for the opportunity to evaluate your patient. For Medicare and Medicare HMO plans, please review the plan of care and approve it. It will need to be FAXED BACK to us at [phone] for Medicare purposes. For Medicare only, by signing this I certify the plan of care. Please let me know if there are questions or concerns regarding this plan of care. Physician Signature: Date:
--- NOTE | 2023-05-15 09:02 | HP.PTREVAL ---
Re-Evaluation Intro: NIK JACKSON, It has been my pleasure to treat VLAD JUSTICE over the last 11 visits for L45 POST LUM FUSION W/INSTRU AND DECOMPRESSION. Please see the progress note below for an update on the physical therapy plan of care! Subjective Subjective: PATIENT REPORTS HIS STRENGTH AND ENDURANCE IS BETTER. STATES HE WAS ABLE TO PUSH MOW ALMOST ALL OF HIS YARD SUNDAY. PATIENT ALSO REPORTS HE CAN ALSO WALK A LOT FURTHER NOW WITHOUT NEEDING TO STOP (ABOUT 30 MIN). CUT UP A BUNCH OF LIMBS AND MOVED BARRELS OF HAY AND CARRIED BAGS OF SAW DUST (50 LBS A BAG AT LEAST) ABOUT 30 YARDS AND DID ALRIGHT. A LITTLE BIT OF PAIN RELIEVED WITH TYLONOL YESTERDAY AFTER LAYING ON BACK AND TO FIX SINK. FOLLOW UP PENDING WITH SURGEON SUNDAY AND PLANNING TO GO BACK TO WORK SUNDAY. PATIENT STATES HE FEELS READY TO RETURN TO WORK. PATIENT REPORTS HE IS BACK DOWN TO ONE TO ONE LYRICA A DAY AND HE ISN'T HAVING ANY ACHING IN HIS LEGS. HE REPORTS HE PLANS TO FOLLOW UP WITH DR. MAJOR SUNDAY. Objective Objective/Function: PATIENT WAS SEEN TODAY FOR RE-ASSESSMENT OF PROGRESS TOWARD THE SET PT GOALS AND THE NEED FOR FURTHER PHYSICAL THERAPY VS READINESS FOR DISCHARGE. PATIENT IS MAKING GREAT PROGRESS WITH PT AND IS APPROPRIATE FOR PHYSICIAN FOLLOW UP FOR POSSIBLE RETURN TO WORK. HE REPORTS THERE ARE A FEW HEAVY AWKWARD LIFTING REQUIREMENTS AT WORK THAT HE WILL NOT HAVE TO DO BECAUSE HE WILL BE ABLE TO GET HELP. UPON EXAM TODAY: THIS PATIENT AMBULATES INDEP'LY INTO PT WITH NO GROSS DEVIATIONS NOTED. INDEP TRANSFERS. Sensory deficit: ANGEL LE LIGHT TOUCH SENSATION GROSSLY INTACT AND SYMMETRICAL ROM deficit: ANGEL LE HS AND GASTROC SOLEUS TIGHTNESS Motor deficit: ANGEL LE'S GROSSLY 5/5 WITH MMT'ING. Dural Signs: NEGATIVE ANGEL LE'S. Lumbar mvmt loss: flex - MIN ext - MOD R SG - KATINA L SG - MOD PATIENT DENIES PAIN WITH LUMBAR ROM TESTING ALL PLANES. Core strength: FAIR LAST EX SESSION 05/11/23 INCLUDED: Nustep L1 x 7 mins for warmup, seat 8, arms 9 Stairs, 2 flight x2 trips. recip w/no HR. Sit to stands: 3x10 15# KB OH Press. Split squat: 2x10 4 + foam Paloff press, K4, 2x10 ea. Paloff press, pot stirs, K5, 1x15 CW/1 x15 CCW ea. LAE (30): 32.5# 3X10 (cues to relax shoulders) Mid rows (27) 70# 3x10. Lat pull downs (12): 3x10 90# Shoulder press(25): 3x8 60# At squat rack, 45# bar, motion mimicking barrel draft roller picker and dump to L, 2x8 (did both sides) Leg press (5) seat 4, legs 3, 155# 3x12 GH press (16), 3x10 ea. 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 Kimble Carry: 15# ea 2 laps Plan Plan Plan: HOLD PT PENDING PHYSICIAN RE-ASSESSMENT. CONTINUE 2X'S A WK X 4 WKS WITH PROGRESSIVE RESISTIVE EXERCISE FOR RETURN TO WORK IF NEEDED/ORDERED BY PHYSICIAN. Balance/Gait/Functional tests Balance/Special Test Scores Oswestry Low Back Score: 1 Goals Goals Goal 1:: DECREASE C/O LOW BACK PAIN (RECENT LE SX'S BUT NOT NOW WHILE BACK ON LYRICA) Goal Time Frame: 4-6 Weeks Goal Progress: Goal Met Goal 2:: IMPROVE LIFTING, WALKING, SITTING, STANDING, SOCIAL LIFE, TRAVEL AND HOMEMAKING/WIRK FUNCTION Goal Time Frame: 4-6 Weeks Goal Progress: Goal Met Goal 3:: INSTRUCT IN PROPHYLAXIS Goal Time Frame: 4-6 Weeks Goal Progress: Goal Met Anticipated Interventions Anticipated Interventions Patient/Client Instruction: Educate patient on: Condition, Plan of Care and Risk Factors For the Purpose of:: To improve self management Therapeutic Exercise to Include: Strength training, Endurance training, Body mechanics, Postural training, Flexibilty training, Neuromotor development and Dynamic Lumbar Stabilization For the Purpose of:: To decrease pain, To increase ROM, To improve muscle performance and motor function, To increase tolerance to activity/condition/position and To improve ability of physical actions for home/community/work/leisure Re-Evaluation Ending Re-evaluation ending: Please do not hesitate to contact me at [phone] by phone or if you have questions or concerns regarding this new plan of care! Sincerely, Carley Dickinson, PT, Cert MDT
== END 2023-05-15 19:00 | disposition home or self-care (01) ==
LOC: PT 08:30
PROVIDERS: PCP Family Medicine
DX: Z47.89 Encounter for other orthopedic aftercare (principal); Z98.1 Arthrodesis status
CPT/HCPCS: 97110; 97112; 97162; 97164

== ENCOUNTER → 2023-05-16 | Outpatient (CLI) | payer OTHER, SELFPAY ==
[2023-05-16 16:31] LABS: Bacteria 0 SEEN /hpf (None Seen); Mucous, Urine 0 SEEN /hpf (<or=2+); Squamous Epithelial Cells - UA 0 SEEN /hpf (0-5); White Blood Cells 0 SEEN /hpf (0-5)
[2023-05-16 17:51] LABS: Absolute Lymphocyte Count 1.66 X10^3/uL (0.83-4.51); Absolute Neutrophil Count 4.1 X10^3/uL (2.0-7.7); Basophil# 0.06 X10^3/uL; Basophil% 0.9 % (0-1); Eosinophil# 0.26 X10^3/uL; Eosinophils% 3.9 % (0-5); Hematocrit 48.7 % (40-54); Hemoglobin 16.1 g/dL (13.0-16.5); Lymphocyte # 1.66 X10^3/ul (0.83-4.51); Lymphocyte % 24.9 % (19-41); Mean Corp Hgb Conc 33.1 g/dL (32-36); Mean Corpuscular Hgb 30.5 pg (27.0-32.0); Mean Corpuscular Volume 92.2 fL (80-94); Mean Platelet Vol. 8.7 fl (6.2-12.0); Monocyte# 0.58 X10^3/uL; Monocyte% 8.7 % (0-10); NRBC Flagged by Analyzer 0 % (0-5); Neutrophil # 4.11 X10^3/uL (2.7-7.7); Neutrophil % 61.5 % (47-70); Platelet Count 227 K/mm3 (150-450); RBC Distribution Width CV 12.5 % (11.6-14.6); RBC Distribution Width SD 42.5 fl (35.1-43.9); Red Blood Count 5.28 M/mm3 (4.6-6.2); White Blood Count 6.7 K/mm3 (4.4-11.0)
[2023-05-16 17:59] LABS: Color, Urine Yellow (Yellow); Glucose, Dipstick 1000 mg/dl (Normal); Ketone-Dipstick Negative (Negative); Leukocyte Esterase-Dipstick Negative /ul (Negative); Nitrite-Dipstick Negative (Negative); Occult Blood-Urine Negative /ul (Negative); Protein-Dipstick Negative (Negative); Urine Bilirubin Dipstick Negative (Negative); Urine Clarity Clear (Clear); Urine Urobilinogen Normal (Normal); Urine pH 6.5 (5.0 - 8.0)
[2023-05-16 18:08] LABS: Protein, Urine (Random) 11.3 mg/dL (<11.9); Protein:Creat Ratio 168 mg/g CRE (0-200)
[2023-05-16 18:11] LABS: Red Blood Cells-Urine 0-5 SEEN /hpf (0-5); Vitamin D,25 Hydroxy 65.2 ng/mL
[2023-05-16 18:12] LABS: AST(SGOT) 24 U/L (15-37); Alanine Aminotransfer ALT/SGPT 44 U/L (16-61); Albumin, Serum 3.6 g/dL (3.2-5.0); Alkaline Phosphatase 65 U/L (45-117); Anion Gap 5 (5-15); BUN 18 mg/dL (7-18); Calcium,Total 8.7 mg/dL (8.5-10.1); Chloride 109 mmol/L (98-107); Cholesterol 126 mg/dL (200); EST Glomerular Filtration Rate 50 mL/min (>60); Est Glom Filt Rate - Afr Amer 61 mL/min (>60); Globulin 3.7 g/dL (2.2-4.2); Glucose 178 mg/dL (74-106); High Density Lipoprotein 51 mg/dL; Phosphorus 2.8 mg/dL (2.5-4.9); Protein, Total 7.3 g/dL (6.4-8.2); Sodium Level 140 mmol/L (136-145); Triglycerides 163 mg/dL; Very Low Density Lipoprotein 33 mg/dL (5-40)
[2023-05-17 08:32] LABS: PTHIN 27.2 pg/mL (18.4-80.1)
== END | disposition home or self-care (01) ==
LOC: MFPLAB 16:24
PROVIDERS: PCP Family Medicine; Visit Provider Family Medicine
DX: E11.69 Type 2 diabetes mellitus with other specified complication (principal); E11.59 Type 2 diabetes mellitus with other circulatory complications; E11.22 Type 2 diabetes mellitus with diabetic chronic kidney disease; N18.30 Chronic kidney disease, stage 3 unspecified; E55.9 Vitamin D deficiency, unspecified
CPT/HCPCS: 36415; 80053; 80061; 81001; 82306; 82570; 83970; 84100; 84156; 85025

== ENCOUNTER → 2023-08-07 | Outpatient (CLI) | payer OTHER, SELFPAY ==
--- NOTE | 2023-08-07 16:43 | RAD_ITS ---
STUDY: X-RAY - LEFT KNEE REASON FOR EXAM: Male, 63 years old. Knee pain. TECHNIQUE: 4 view(s) of the knee. COMPARISON: None. FINDINGS: Osteopenia. Mild medial compartmental arthrosis. Mild arthrosis of the lateral compartment. Slight lateral tilt of the patella with mild arthrosis of the patellofemoral compartment. Small joint effusion. RAD/Knee 4 or More Views IMPRESSION: Osteopenia with mild tricompartmental arthrosis and small joint effusion. Electronically Signed: Farhad West MD at 12:11 EST ,
--- NOTE | 2023-08-07 16:43 | RAD_ITS ---
STUDY: X-RAY - RIGHT KNEE REASON FOR EXAM: Male, 63 years old. Pain. TECHNIQUE: 4 view(s) of the knee. COMPARISON: None. FINDINGS: Osteopenia. Mild medial compartmental narrowing without osteophytes. Normal lateral femorotibial compartment. Lateral tilt and subluxation of the patella with moderate arthrosis of the lateral patellofemoral compartment. Small joint effusion with multiple ossific fragments projected posterior to the joint on the lateral view compatible with intra-articular osteochondral bodies. RAD/Knee 4 or More Views IMPRESSION: Osteopenia with medial and patellofemoral compartment arthrosis. Small joint effusion with intra-articular osteochondral bodies. Electronically Signed: Farhad West MD at 12:10 EST ,
== END | disposition home or self-care (01) ==
LOC: MTRAD 16:40
PROVIDERS: PCP Family Medicine; Referring Provider Family Medicine; Visit Provider Family Medicine
DX: M25.561 Pain in right knee (principal); M25.562 Pain in left knee
CPT/HCPCS: 73564

== ENCOUNTER → 2023-08-22 | Outpatient (CLI) | payer OTHER, SELFPAY ==
--- NOTE | 2023-08-22 15:50 | RAD_ITS ---
STUDY: X-RAY - LEFT SHOULDER REASON FOR EXAM: Male, 63 years old. OSTEO -- BILAT TECHNIQUE: 4 view(s) of the shoulder. COMPARISON: None. FINDINGS: Normal glenohumeral articulation. There is hypertrophic osteoarthrosis of the acromioclavicular joint with inferior osseous spur formation. Normal acromion. Normal humeral head and visualized proximal humerus. The soft tissue structures are unremarkable. There is no demonstrated fracture. Normal visualized pulmonary apex. RAD/Shoulder min 2 Views IMPRESSION: Acromioclavicular arthrosis. Electronically Signed: Neto Gonzalez MD at 19:33 EST ,
--- NOTE | 2023-08-22 15:50 | RAD_ITS ---
STUDY: X-RAY - CERVICAL SPINE REASON FOR EXAM: Male, 63 years old. DDD TECHNIQUE: 6 view(s) of the cervical spine were obtained. COMPARISON: None FINDINGS: Normal anterior atlantoaxial articulation. Normal odontoid process. There is straightening of the normal cervical lordosis. There is multi-level endplate spondylosis. There is disc space narrowing at C6-7 . There is foraminal narrowing at C5-6 and C6-7. The soft tissue structures are unremarkable. There is no demonstrated fracture of the cervical spine. RAD/Cerv Spine 4 or 5 Views IMPRESSION: Degenerative change. Electronically Signed: Neto Gonzalez MD at 19:32 EST ,
--- NOTE | 2023-08-22 15:50 | RAD_ITS ---
STUDY: X-RAY - RIGHT SHOULDER REASON FOR EXAM: Male, 63 years old. OSTEO TECHNIQUE: 4 view(s) of the shoulder. COMPARISON: None. FINDINGS: Normal glenohumeral articulation. There is hypertrophic osteoarthrosis of the acromioclavicular joint with inferior osseous spur formation. Normal acromion. Normal humeral head and visualized proximal humerus. The soft tissue structures are unremarkable. There is no demonstrated fracture. Normal visualized pulmonary apex. RAD/Shoulder min 2 Views IMPRESSION: Acromioclavicular arthrosis. Electronically Signed: Neto Gonzalez MD at 19:34 EST ,
--- OUTSIDE RECORDS SUMMARY | 2023-08-22 15:51 | XMS RPT_ITS | CCD ---
Author Name Unknown Address [address] [place] [address] Organization [facility] Care Team Providers Care Senior It Architect Name Role Phone DM GARCIA, RJ Primary Care Physician Dm GARCIA, Rj Winston Primary Care Provider DR NIK LEGER DO Attending Dwight CHAIDEZ MD, RJ Primary Care Unavailable DM GARCIA, RJ [facility] Care Unavailable DEANNA HASTINGS CNP Attending Unavailable DM GARCIA, RJ Primary Care Unavailable BEREKET MENDEZ MD Attending Unavailable DM GARCIA, RJ Primary Care Unavailable GEOVANNA GARCIA., KACEY Guzman Attending Unavailable DM GARCIA, RJ [facility] Unavailable GEOVANNA ROMERO, KACEY Guzman Attending Unavailable DM GARCIA, RJ Primary Care Unavailable EDIE CHRIS DO Attending Unavailable AFRICA BERTRAND, DR ZARAGOZA Attending Dwight CHAIDEZ MD, RJ [facility] Unavailable Kacey Sagastume Primary [facility] Provider RJ CHAIDEZ Primary [facility] Unavailable NIK LEGER Admitting Unavailable NIK LEGER Attending Unavailable RJ CHAIDEZ Primary [facility] Unavailable KACEY SAGASTUME Primary [facility] UnavailJUAN Mitchell Attending Unavailable RJ CHAIDEZ Primary Care Unavailable FLASH ECHEVARRIA Referring Unavailable CARLIN LOPEZ Referring Unavailable RJ CHAIDEZ Primary Care Unavailable FLASH ECHEVARRIA Attending Unavailable Dm GARCIA, Rj Winston Primary Care Provider Allergies Allergy Classification Reported Allergen(s) Allergy Type Date of Onset Reaction(s) Facility (13 sources) Doxycycline; Translations: [doxycycline] Drug Allergy [address] [place] [address] (6 sources) Penicillin; Translations: [penicillin] Drug Allergy Rash [facility] (6 sources) Sulfonamides (Antibiotic); Translations: [sulfa drugs] Drug allergy Rash [facility] (11 sources) exenatide; Translations: [exenatide] Drug Allergy 6 Nausea (finding), GI Upset [facility] (7 sources) Adhesive Tape; Translations: [ADHESIVE TAPE (ROSINS)] Propensity to adverse reactions to substance 4 Rash, Itching [facility] (7 sources) Grass pollen; Translations: [GRASS POLLEN] Drug Allergy 2 Other: See Comments [facility] Work Phone: (7 sources) Penicillins; Translations: [PENICILLINS] Propensity to adverse reactions 5 [facility] Work Phone: (7 sources) Sulfonamides (Antibiotic); Translations: [SULFA (SULFONAMIDE ANTIBIOTICS)] Propensity to adverse reactions 5 [facility] Work Phone: (7 sources) Thiazides; Translations: [THIAZIDES] Drug Allergy 5 [facility] Work Phone: (7 sources) Tree; Translations: [TREES] Allergy to substance 2 Other: See Comments [facility] Work Phone: (7 sources) [place]; Translations: [GOLDENROD] Allergy to substance 2 Other: See Comments [facility] Work Phone: Medications Current Medications Medication Drug Class(es) Dates Sig (Normalized) Sig (Original) acetaminophen 325 mg / HYDROcodone bitartrate 5 mg oral tablet (4 sources) Opioid Agonist Start: 04-18-2022 take 1 tablet by mouth twice daily as needed for pain [place] 325- 5 mg oral tablet Dose = 1 tab(s), Oral, BID, PRN for pain, # 60 tab(s), 0 Refill(s), [facility], Lumbar foraminal stenosis Lumbar radiculopathy, 167.6, cm, 04/18/22 10:19:00 EDT, Height, 112.6 Start Date: 04/18/22 Status: Ordered aspirin 81 mg delayed release oral tablet (11 sources) Platelet Aggregation Inhibitor, Nonsteroidal Anti-inflammatory Drug Start: 07-23-2019 aspirin 81 mg oral delayed release tablet Dose : 81 mg = 1 tab(s), Oral, Daily, 0 Refill(s) Start Date: 07/23/19 Status: Ordered Completed/Discontinued Medications Medication Drug Class(es) Dates Sig (Normalized) Sig (Original) Acetaminophen / oxyCODONE (1 source) Opioid Agonist take 1 tablet by yan th every twelve hours as needed oxyCODONE-acetamino phen (PERCOCET) 5325 mg per tablet Take 1 tablet by mouth twice daily as needed (pain). 5-325mg 0 Suspended Problems Active Problems Problem Classification Problem Date Documented Date Episodic/Chronic Diabetes mellitus with complications (6 sources) Neuropathy due to diabetes mellitus; Translations: [Type 2 diabetes mellitus with diabetic neuropathy, unspecified] Onset: 09-05-2021 04-05-2012 Chronic Diabetes mellitus without complication (11 sources) Type 2 diabetes mellitus; Translations: [Type 2 diabetes mellitus without complications] Onset: 09-24-1999 11-05-2019 Chronic Disorders of lipid metabolism (5 sources) Hyperlipidemia; Translations: [Hyperlipidemia, unspecified] 06-17-2014 Chronic Esophageal disorders (4 sources) Gastroesophageal reflux disease 03-14-2022 Chronic Essential hypertension (5 sources) Hypertensive disorder; Translations: [Essential (primary) hypertension] 09-05-2021 Chronic Osteoarthritis (5 sources) Degenerative joint disease involving multiple joints; Translations: [Polyosteoarthritis, unspecified] 09-05-2021 Chronic Other acquired deformities (1 source) Spondylolisthesis, lumbar region; Translations: [Spondylolisthesis of lumbar region] Onset: 02-13-2023 Episodic Other and unspecified benign neoplasm (5 sources) History of polyp of colon; Translations: [Personal history of colonic polyps] Onset: 01-15-2023 Episodic Other and unspecified benign neoplasm (1 source) Personal history of colonic polyps; Translations: [Personal history of colonic polyps] Onset: 01-15-2023 Episodic Other male genital disorders (5 sources) Secondary erectile dysfunction; Translations: [Male erectile dysfunction, unspecified] Onset: 08-26-2005 08-31-2010 Chronic Other non-traumatic joint disorders (1 source) Osteophyte, vertebrae; 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] Onset: 02-13-2023 Chronic Other nutritional; endocrine; and metabolic disorders (5 sources) Morbid obesity; Translations: [Morbid (severe) obesity due to excess calories] Onset: 03-15-2015 03-15-2015 Chronic Other nutritional; endocrine; and metabolic disorders (1 source) Body mass index 40+ - severely obese; Translations: [Morbid (severe) obesity due to excess calories] Onset: 02-13-2023 02-13-2023 Chronic Other screening for suspected conditions (not mental disorders or infectious disease) (3 sources) Patient encounter status; Translations: [Encounter for screening for malignant neoplasm of colon] Onset: 01-15-2023 Episodic Residual codes; unclassified (4 sources) Family history of cancer of colon; Translations: [Family history of malignant neoplasm of digestive organs] Onset: 01-15-2023 01-15-2023 Episodic Residual codes; unclassified (1 source) Family history of malignant neoplasm of digestive organs; Translations: [Family history of colon cancer] Onset: 01-15-2023 Episodic Spondylosis; intervertebral disc disorders; other back problems (7 sources) Lumbosacral spondylosis without myelopathy; Translations: [Degeneration of lumbosacral intervertebral disc] Onset: 02-13-2023 03-14-2022 Chronic Past or Other Problems Problem Classification Problem Date Documented Da te Episodic/Chronic Other aftercare (5 sources) Long-term current use of insulin; Translations: [petrophysical engineer (current) use of insulin] Onset: 09-15-2015 09-15-2015 Episodic Other aftercare (1 source) longterm (current) use of insulin; Translations: [Type 2 diabetes mellitus with diabetic autonomic neuropathy, with long-term current use of insulin (HCC)] Onset: 09-05-2021 Episodic Spondylosis; intervertebral disc disorders; other back problems (19 sources) Lumbar radiculopathy; Translations: [Stenosis of lumbar vertebral foramen] Onset: 05-08-2013 03-14-2022 Episodic Results Test Name Value Interpretation Reference Range Facil ity Vital Signs Date Time Vital Sign Value Performing Clinician Faci lity 01-15-2023 08:58-0400 Diastolic blood pressure 66 mm[Hg] Juan Ambriz MD Work Phone: [facility] 01-15-2023 08:58-0400 Heart rate 96 /min Juan Ambriz MD Work Phone: [facility] 01-15-2023 08:58-0400 Respiratory rate 16 /min Juan Ambriz MD Work Phone: [facility] 01-15-2023 08:58-0400 SaO2% (BldA) [Mass fraction] 94 % Juan Ambriz MD Work Phone: [facility] 01-15-2023 08:58-0400 Systolic blood pressure 116 mm[Hg] Juan Ambriz MD Work Phone: [facility] 01-15-2023 07:48-0400 Body temperature 98.2 [degF] Juan Ambriz MD Work Phone: [facility] 01-15-2023 07:48-0400 Body weight 118.4 kg Juan Ambriz MD Work Phone: [facility] 10-17-2022 15:39-0500 Body height 167.6 cm Flash Swathi PA-C Work Phone: [facility] 10-17-2022 15:39-0500 Body temperature 98.6 [degF] Flash Swathi PA-C Work Phone: [facility] 10-17-2022 15:39-0500 Body weight 118.39 kg Flash Swathi PA-C Work Phone: [facility] 10-17-2022 15:39-0500 Diastolic blood pressure 82 mm[Hg] Flash Proctor PA-C Work Phone: [facility] 10-17-2022 15:39-0500 Heart rate 103 /min Flash Swathi PA-C Work Phone: [facility] 10-17-2022 15:39-0500 SaO2% (BldA) [Mass fraction] 100 % Flash Proctor PA-C Work Phone: [facility] 10-17-2022 15:39-0500 Systolic blood pressure 126 mm[Hg] Flash Echevarria PA-C Work Phone: [facility] Encounters Encounter Date Encounter Type Care Provider Facility Start: 02-13-2023 End: 02-14-2023 ambulatory NIK LEGER Facility:[id number] Start: 02-13-2023 End: 02-13-2023 Subsequent hospital visit by physician [facility] Start: 01-31-2023 End: 02-01-2023 ambulatory RJ CHAIDEZ Facility:[id number] Start: 01-31-2023 Encounter for other preprocedural examination [facility] Start: 01-15-2023 End: 01-15-2023 ambulatory JUAN AMBRIZ Facility:[facility] Start: 01-15-2023 End: 01-15-2023 Subsequent hospital visit by physician Juan Ambriz MD Work Phone: Ambulatory Surgery Procedures Date Procedure Procedure Detail Performing Clinician Start: 01-31-2023 Antibody screen JR MONTELONGO Plan of Treatment Date Care Activity Detail Author Start: 01-16-2028 Colonoscopy Colonoscopy [facility] Start: 01-16-2028 Colorectal Cancer Screening Colorectal Cancer Screening [facility] Start: 01-15-2026 Colonoscopy COLONOSCOPY [facility] Start: 01-15-2026 COLORECTAL CANCER SCREENING COLORECTAL CANCER SCREENING [facility] Start: 08-03-2023 Hemoglobin A1c/Hemoglobin.total in Blood HBA1C [facility] Start: 05-11-2023 Covid-19 Vaccine ( season) Covid-19 Vaccine () [facility] Start: 05-11-2023 Influenza vaccination Influenza Vacc ine (#1) [facility] Start: 11-04-2022 Colonoscopy COLONOSCOPY [facility] Start: 11-04-2022 COLORECTAL CANCER SCREENING COLORECTAL CANCER SCREENING [facility] Start: 09-10-2022 DEPRESSION ASSESSMENT DEPRESSION ASS ESSMENT [facility] Start: 11-02-2021 COVID-19 VACCINE (4 - Booster for Moderna series) COVID-19 VACCINE (4 - Booster for Moderna series) [facility] Start: 2020 Hepatitis B Vaccine (1 of 3 - Risk 3-dose series) Hepatitis B Vaccine (1 of 3 - Risk 3-dose series) [facility] Start: 2020 RSV Vaccine (1 - 1-d ose 60+ series) RSV Vaccine (1 - 1-dose 60+ series) [facility] Start: 09-15-2016 3 comp foot exam completed DIABETIC FOOT EXAM [facility] Start: 03-19-2016 Hepatitis B screening URINE AL BUMIN:CREATININE RATIO [facility] Start: 03-19-2016 Hepatitis B surface antibody level LDL CHOLESTEROL [facility] Start: 03-15-2016 Hemoglobin A1c/Hemoglobin.total in Blood HBA1C [facility] Start: 01-08-2016 Hepatitis C antibody , confirmatory test DILATED RETINAL EXAM [facility] Start: 08-31-2015 PROSTATE CANCER SCRE ENING DISCUSSION PROSTATE CANCER SCREENING DISCUSSION [facility] Start: 03-17-2010 PNEUMOCOCCAL (2 - PCV) PNEUMOCOCCAL (2 - PCV) [facility] Start: 03-17-2010 Pneumococcal vaccination Pneum ococcal Vaccine (2 - PCV) [facility] Start: 01-08-2010 SHINGRIX VACCINE (1 of 2) SHINGRIX V ACCINE (1 of 2) [facility] Start: 01-08-2005 COLOGUARD (FIT-DNA) COLOGUARD (FIT-D NA) [facility] Start: 01-08-[address] COLONOGRAPHY [facility] Start: 01-08-2005 FECAL OCCULT BLOOD FECAL OCCULT BLOO D [facility] Start: 01-08-2005 SIGMOIDOSCOPY SIGMOIDOSCOPY [facility] Start: 01-08-1979 Urine microalbumin profile [facility] Start: 01-08-1978 ANNUAL PCP TEAM LANDSCAPE LABORER EDGAR DISEASE VISIT ANNUAL PCP TEAM CHRONIC DISEASE VISIT [facility] Start: 01-08-1978 BP CONTROLLED (<130/80) BP CONTROLLE D (<130/80) [facility] Start: 01-08-1978 HEPATITIS C SCREENING HEPATITIS C SC REENING [facility] Start: 01-08-1978 HIV SCREENING HIV SCREENING [facility] Immunizations Immunization Date Immunization Notes Care Provider Fa cility 07-24-2022 influenza virus vacc ine, unspecified formulation Juan Ambriz MD Work Phone: [facility] 12-03-2020 COVID-19, mRNA, LNP- S, PF, 100 mcg/ 0.5 mL dose; Translations: [Moderna COVID-19 Vaccine] BHAVANI SCHULTE [facility] 11-05-2020 COVID-19, mRNA, LNP- S, PF, 100 mcg/ 0.5 mL dose; Translations: [Moderna COVID-19 Vaccine] BHAVANI SCHULTE [facility] 03-17-2009 pneumococcal polysaccharide vaccine, 23 valent Flash Echevarria PA-C Work Phone: [facility] Work Phone: 07-18-2006 influenza virus vacc ine, unspecified formulation Flash Echevarria PA-C Work Phone: [facility] Work Phone: Payers Date Payer Category Payer Unknown [id number] 2019 Unknown [id number] 1960 Unknown [id number] 2.16.8 [id number] 1960 Unknown [id number] 2.16.8 [id number] 1960 Unknown [id number] 2.16.8 [id number] 1960 Unknown [id number] 2.16.8 [id number] 1960 Unknown [id number] 2.16.8 [id number] 1960 Unknown [id number] 2.16.8 [id number] 1960 Unknown [id number] 2.16.8 [id number] Social History Date Type Detail Facility Start: 10-28-2012 End: 07-23-2019 Never smoked tobacco (finding) [facility] Sex Assigned At [facility] Start: 10-28-2012 End: 01-30-2023 Tobacco use and exposure Smokeless tobacco non-user [facility] Start: 10-17-2022 End: 01-15-2023 Alcohol intake Current non-drinker of alcohol (finding) [facility] Start: 1960 Sex Assigned At Not on file C [facility] History of tobacco use Passive smoker [facility] Start: 01-31-2023 Alcohol intake Lifetime non-d laci (finding) [facility] Start: 10-17-2022 End: 01-15-2023 History of Social function [facility] Start: 10-17-2022 End: 01-15-2023 Tobacco use panel [facility] National Score (1-100), lower number is lower risk 85 [facility] Medical Equipment Procedure Code Equipment Code Equipment Origin al Text Equipment Identifier Dates See Instructions , BD UF 8mm 31 G (short) qs 1 month supply, # 200 EA, 3 Refill(s), [facility] [place] [email or web address], 167, cm, 11/04/19 15:51:00 EST, Height, 116, kg, 11/04/19 15:51:00 EST, Dosing Weight Start: 11-04-2019 See Instructions , BD UF 8mm 31 G (short) qs 1 month supply, # 200 EA, 3 Refill(s), [facility] [place] [email or web address], 167, cm, 11/04/19 15:51:00 EST, Height, 116, kg, 11/04/19 15:51:00 EST, Dosing Weight Start: 11-04-2019 Start: 09-13-2015 End: 01-30-2023 Clinical Notes 10-17-2022 to 02-14-2023 Telephone Encounter - Isaura Allen - 01/16/2023 10:50 AM EDTTelephone Encounter - Isaura Allen - 01/08/2023 11:37 AM EDTTelephone Encounter - Isaura Allen - 01/03/2023 8:24 AM EDT Note Date & Type Note Facility 02-14-2023 Note HNO ID: [id number] Author: Carmen Kimble PA-C Service: Orthopaedic Surgery Author Type: Physician Theatrical Trouper Type: Progress Notes Filed: 02/14/2023 8:18 AM Note Text: ORTHO SPINE INPATIENT PROGRESS NOTE SERVICE DATE: 02/14/2023 SERVICE TIME: 8:10 AM PRIMARY SERVICE: ORTHO SPINE Subjective CHIEF COMPLAINT: back pain INTERVAL HPI: No acute events overnight. Patient is doing very well. Mild back pain. No leg pain. He was up and worked with therapy yesterday and did well. He states his ability to stand and walk is significantly improved compared to preop. Current Facility-Administered Medications Medication Dose Route Frequency therapeutic multivitamin-minerals tablet (THERA-M PLUS) 1 tablet ORAL DAILY lisinopril 20 mg tab(s) (ZESTRIL) 20 mg ORAL DAILY atorvastatin 20 mg tab(s) (LIPITOR) 20 mg ORAL AT BEDTIME albuterol HFA 90 mcg/actuation 1 Puff (PROVENTIL HFA, VENTOLIN HFA) 1 Puff INHALATION q 6 H PRN pregabalin 100 mg cap(s) (LYRICA) 100 mg ORAL TID cholecalciferol 5,000 Units tab(s) (VITAMIN D3) 5,000 Units ORAL DAILY acetaminophen 1,000 mg tab(s) (TYLENOL) 1,000 mg ORAL q 6 H HYDROmorphone HCl 1 mg injection (DILAUDID) 1 mg INTRAVENOUS q 2 H PRN cyclobenzaprine 10 mg tab(s) (FLEXERIL) 10 mg ORAL TID PRN ondansetron 4 mg tab(s) (ZOFRAN) 4 mg ORAL q 6 H PRN Or ondansetron (PF) 4 mg injection (ZOFRAN) 4 mg INTRAVENOUS q 6 H PRN docusate sodium 100 mg cap(s) (COLACE) 100 mg ORAL BID polyethylene glycol 3350 17 g packet 17 g ORAL DAILY PRN [START ON 02/15/2023] bisacodyl EC 10 mg tab(s) (DULCOLAX) 10 mg ORAL DAILY NaCl 0.9% iv infusion 75 mL/hr INTRAVENOUS CONTINUOUS insulin lispro 20 Units injection (rapid acting) (HumaLOG) 20 Units SUBCUTANEOUS DAILY WITH BREAKFAST And insulin lispro 25 Units injection (rapid acting) (HumaLOG) 25 Units SUBCUTANEOUS DAILY wLUNCH And insulin lispro 30 Units injection (rapid acting) (HumaLOG) 30 Units SUBCUTANEOUS DAILY wDINNER dextrose 40 % 15 g 15 g ORAL PRN Or glucagon 1 mg injection 1 mg INTRAMUSCULAR PRN Or dextrose 10% iv bolus 12.5 g INTRAVENOUS PRN pantoprazole DR 20 mg tab(s) (PROTONIX) 20 mg ORAL BID AC (0600/1600) cetirizine 10 mg tab(s) (ZYRTEC) 10 mg ORAL DAILY mometasone 220 mcg/ actuation (14) 1 Puff inhaler (ASMANEX) 1 Puff INHALATION DAILY And umeclidinium 62.5 mcg - vilanterol 25 mcg inhaler (ANORO ELLIPTA) 1 Inhalation INHALATION DAILY oxyCODONE IR 5-10 mg tab(s) (ROXICODONE) 5-10 mg ORAL q 6 H PRN insulin lispro injection (rapid acting) (HumaLOG) SUBCUTANEOUS w MEALS insulin lispro injection (rapid acting) (HumaLOG) SUBCUTANEOUS AT BEDTIME Objective PHYSICAL EXAM: BP 136/87 Pulse 77 Temp (Src) 98.5 (Oral) Resp 18 Ht 5' 6 (1.68m) Wt 259 lb 12.8 oz (117.8kg) SpO2 97% BMI 41.95 kg/(m2). O2 Therapy: Room Air Physical Exam Performed GENERAL: Alert, no distress, cooperative NEURO: Moves all extremities well x4, strength within normal limits WOUND: Clean, dry and intact, drain: 70+50= 120 cc DATA: Diagnostic tests reviewed for today's visit: Latest Reference Range AND Units 02/14/23 04:49 Sodium 136 - 145 mmol/L 139 Potassium 3.5 - 5.1 mmol/L 4.4 Chloride 98 - 107 mmol/L 107 CO2 21 - 32 mmol/L 25 BUN 7 - 26 mg/dL 25 Creatinine 0.50 - 1.40 mg/dL 1.30 Glucose 70 - 100 mg/dL 241 (H) Calcium 8.5 - 10.5 mg/dL 8.6 Anion Gap 5 - 16 mmol/L 7 eGFR >=60 mL/min/1.73m? 62 WBC 3.70 - 11.00 k/uL 9.39 RBC 4.20 - 6.00 m/uL 4.02 (L) Hemoglobin 13.0 - 17.0 g/dL 12.4 (L) Hematocrit 39.0 - 51.0 % 37.3 (L) Platelet Count 150 - 400 k/uL 185 MCV 80.0 - 100.0 fL 92.8 MCH 26.0 - 34.0 pg 30.8 MCHC 30.5 - 36.0 g/dL 33.2 MPV 9.0 - 12.7 fL 9.0 RDW-CV 11.5 - 15.0 % 11.8 Absolute nRBC <0.01 k/uL <0.01 (H): Data is abnormally high (L): Data is abnormally low Assessment/Plan Active Problems: 63-year-old male with lumbar stenosis- s/p L4-5 posterolateral fusion with instrumentation and decompression on 02/13/[address] Leger, POD#1. -Neuro status stable -Continue surgical drain, but possibly discontinue later today if output lessens -Increase activity with PT/OT with LSO brace on when out of bed. Avoid bending lifting and twisting. -Discharge planning: Likely later today versus tomorrow morning Obesity, Class III, BMI >= 40 POA: Unknown Assessment AND Plan: See above Resolved Problems: * No resolved hospital problems. * Medication and Non-Pharmacologic VTE Prophylaxis/Anticoagulants 02/13/23 1300 vte pharmacologic prophylaxis contraindicated (nv,tn) 02/13/23 1300 pneumatic compression stockings ([place] 02/13/23 1300 graduated compression stockings ([place] 02/13/23 1300 activity - mobilize patient ([place]) VTE Prophylaxis: VTE prophylaxis appropriate SIGNATURE: Carmen Kimble PA-C PATIENT NAME: Carlin Siddiqi DATE: February 14, 2023 TIME: 8:[address] [facility] 02-13-2023 Note HNO ID: [id number] Author: Dany Alvarez APRN.PRODUCT MANAGEMENT ANALYST Service: ? Author Type: Nurse Stoker Installer Type: Anesthesia Procedure Notes Filed: 02/13/2023 8:21 AM Note Text: ANESTHESIOLOGY PROCEDURE NOTE Airway General Information Procedure Start Time/Medication Administration: 02/13/2023 7:51 AM Procedure End Time: 02/13/2023 7:51 AM Patient location during procedure: OR Timeout Performed Pre-procedure: timeout performed Consent Obtained: Yes Patient identity confirmed: arm band Staffing PRODUCT MANAGEMENT ANALYST: Dany Alvarez APRN.PRODUCT MANAGEMENT ANALYST Performed by: [place] Indications and Patient Condition Indications for airway management: anesthesia Preoxygenated: yes anesthesia circuit Patient position: sniffing Method: asleep Cricoid Pressure: No Manual In-Line Stabilization: No Difficult Mask: No Final Airway Details Final airway type: endotracheal airway Final Endotracheal Airway: ETT Cuffed: yes Successful intubation technique: video laryngoscopy Devices used: Avila and intubating stylet Endotracheal tube insertion site: oral Blade: Duglas Blade size: #4 ETT size (mm): 8.0 Measured from: lips Measurement (cm): 23 Placement verified by: chest auscultation and capnometry Cormack-Lehane Classification: grade IIa - partial view of glottis Number of attempts at approach: 1 Failed airway: no Unrecognized esophageal intubation: no Airway not difficult Medications Administered lidocaine topical gel 2% urojet (XYLOCAINE, GLYDO) - MUCOUS MEMBRANE 4 mL - 02/13/2023 7:51:00 AM SIGNATURE: Dany Alvarez APRN.CRNA PATIENT NAME: Carlin Siddiqi DATE: February 13, 2023 TIME: 8:17 AM CSN: [id number] [facility] 02-12-2023 Note HNO ID: [id number] Author: Gretta Hernandez RN Service: Nursing Author Type: Registered Nurse Type: Progress Notes Filed: 02/12/2023 2:10 PM Note Text: PATIENT MEDICATION INSTRUCTIONS Please read below carefully for your personalized instructions. Medications: If you are on blood thinner or anticoagulants including aspirin, please confirm with your surgical team on when to stop these medications. Unless instructed differently by your surgical team, stay on all of your medications until your surgery. Pre-Surgery Med Instructions Medication Instructions insulin lispro (HUMALOG PEN SUBCUTANEOUS) DO NOT TAKE MORNING OF SURGERY oxyCODONE-acetaminophen (PERCOCET) 5325 mg per tablet PRN if needed brzegmrtaoq-pbvqpinql-ovhpbikx (TRELEGY ELLIPTA) 100-62.5-25 mcg inhalation powder Use Day of Surgery omeprazole (PRILOSEC) 20 mg capsule Use Day of Surgery cholecalciferol (VITAMIN D3) 5,000 unit tab DO NOT TAKE MORNING OF SURGERY pregabalin (LYRICA) 100 mg capsule Take morning of surgery with a sip of water, no other fluids loratadine (CLARITIN) 10 mg tablet Take morning of surgery with a sip of water, no other fluids Tadalafil (CIALIS) 10 mg tablet Do not take within 2 days of surgery ubidecarenone Q-10 (COENZYME Q-10) 10 mg cap DO NOT TAKE MORNING OF SURGERY albuterol HFA (PROVENTIL HFA, VENTOLIN HFA) 90 mcg/actuation inhaler PRN if needed insulin aspart (NOVOLOG FLEXPEN) 100 unit/mL inpn DO NOT TAKE MORNING OF SURGERY [place]-3 Fatty Acids 500 mg cap DO NOT TAKE MORNING OF SURGERY lisinopril (ZESTRIL, PRINIVIL) 20 mg tablet DO NOT TAKE MORNING OF SURGERY atorvastatin (LIPITOR) 20 mg tablet aspirin, enteric coated (ASPIRIN, ENTERIC COATED) 81 mg EC tablet Follow Prescribers Instructions multivitamin ORAL tablet DO NOT TAKE MORNING OF SURGERY - No diabetic medication the morning of surgery. If you take any medications for erectile dysfunction-Cialis (Tadalafil), Levitra, Staxyn (Vardenafil) Viagra (Sildenenafil please do not take these for 48 hours before surgery. If you have any medication changes between receiving these instructions and your surgery date, please provide this updated information with the nurse who calls you the week day prior to your surgical procedure so we can update your list and provide you with updated instructions for the morning of your procedure. PRE-PROCEDURE INSTRUCTIONS TO PREPARE FOR YOUR PROCEDURE: Your arrival time for your procedure is 0615. Do NOT eat any solid foods after MIDNIGHT the night prior to your procedure - this includes gum or mints. You can drink clear liquids* up until 0415, which is 2 hours before your arrival time. *Clear liquids = water, carbohydrate drink (sports drink that is clear or yellow in color), Ensure Pre-Surgery (given by ARIANA or your DrYolie), fruit juice without pulp (apple/cranberry), clear tea, black coffee (no cream). NO CARBONATED BEVERAGES AND NO ALCOHOL. Shower the morning of the procedure, put on clean clothes, and have clean sheets for your bed to help prevent infection after your procedure. Leave all valuables such as jewelry including rings, piercings, wallets, and purses at home. Wear comfortable, loose-fitting clothing. If you wear glasses or contacts, please bring a case. SPECIAL INSTRUCTIONS: If instructed, bring your first voided urine specimen with you. If you were provided skin preparation to use prior to your procedure, complete this as directed. If you were provided Ensure Pre-Surgery drink, you need to drink this at n/a. This should be consumed quickly (in less than 5 minutes, rather than sipped over time) If you use crutches or a walker, bring them with you. If you have a home CPAP/BIPAP machine, bring it with you. If you were instructed to complete a fleets enema or bowel prep, complete as directed. Bring copy of Living Will/Power of Wellness Manager. Do not smoke or chew. If you use tobacco, quit or at least cut down before surgery. Do not smoke or chew after midnight the day before your surgery. This effects bleeding, infection, healing, and so much more. Do not take any Diet or Herbal Supplements 2 weeks prior to your surgery date. Please notify your physician if there is any change in your physical condition such as a cold, cough, fever, sore throat, or skin irritation near the surgical site. Visitors under the age of 14 are restricted in the Surgery Center. UPON ARRIVAL: Access to [facility]) is located on [address] [employer] parking is available for your convenience from 5am-5pm- there is a $5.00 charge for this service. Take the elevators directly inside the entrance to the 1st Floor Surgery Lobby. Sign in at the podium located to the left when you get off the elevators. A payment may be expected at the time of service. One visitor may come back to the preoperative area with you. The preoperative staff (more content not included)... [facility] 02-06-2023 Note HNO ID: [id number] Author: Ada Flores MD Service: ? Author Type: Physician Type: Progress Notes Filed: 02/06/2023 3:16 PM Note Text: Summary: MEDICAL, PULMONARY AND ENDO CLERANCES Medical: optimized Pulmonary: Doing very well on current treatment without need for rescue inhaler Endocrinology: 7.2 A1C by CBG monitor [facility] 01-31-2023 Note HNO ID: [id number] Author: Juan Villagomez PA-C Service: ? Author Type: Physician Theatrical Trouper Type: Progress Notes Filed: 02/02/2023 3:43 PM Note Text: PACC Consult SERVICE DATE: 01/31/2023 SERVICE TIME: 9:55 AM PRIMARY CARE PHYSICIAN: Rj Chaidez MD REASON FOR VISIT: Carlin Siddiqi is a 63 year old male who is scheduled for L4-L5 PLF at the request of Dr. Leger for consultation. My final recommendation will be communicated back to the requesting physician by way of shared medical record or letter. The patient has the following: ACTIVE PROBLEM LIST Hypertension Hyperlipidemia Generalized osteoarthrosis, unspecified site Type 2 Diabetes Mellitus (Hcc) Impotence of Organic Origin Diabetic Neuropathy (Hcc) Cervical Radiculopathy Morbid Obesity (Hcc) Insulin Long-Term Use (Hcc) Family History of Colon Cancer Personal History of Colonic Polyps Subjective CHIEF COMPLAINT: 02/13/23 L4/5 PLF - [place] 63 yo [place] man, non-smoker. PMHx of DM-2, insulin requiring, with neuropathy. HTN, HLP, DEION on CPAP, asthma, incomplete RBBB PAST MEDICAL HISTORY Diagnosis Date Acid reflux controlled with medication Allergic rhinitis, cause unspecified Arthritis back and hands Asthma Sees Dr Mendez, controlled with inhalers Benign neoplasm of colon Chronic kidney disease, stage III (moderate) (HCC) followed by PCP Diabetic neuropathy (HCC) slight in feet Essential hypertension, benign bp controlled with medication-followed by PCP Family history of malignant neoplasm of gastrointestinal tract family history of colon cancer Family history of malignant neoplasm of gastrointestinal tract Generalized osteoarthrosis, unspecified site back H/O cardiovascular stress test 01/23/2023 at [facility] Herpes zoster without mention of complication 01/15/2009 Internal hemorrhoids without mention of complication Low back pain potentially associated with spinal stenosis Other and unspecified hyperlipidemia Sciatica Sleep apnea uses cpap nightly, study done at Dr Mendez's office Snoring Thyroid nodule Dr Manriquez following Type II or unspecified type diabetes mellitus without mention of complication, not stated as uncontrolled followed by Dr Timmy Booker Unspecified constipation Wears glasses reading PAST SURGICAL HISTORY Procedure Laterality Date CARPAL TUNNEL 05/2013 Right CARPAL TUNNEL 06/12/2013 left COLONOSCOPY FLX DX W/COLLJ SPEC WHEN PFRMD 09/13/2006 repeat [id number] COLONOSCOPY FLX DX W/COLLJ SPEC WHEN PFRMD 06/17/2012 Colonoscopy q5y COLONOSCOPY FLX DX W/COLLJ SPEC WHEN PFRMD 11/04/2019 adenomatous polyps, repeat in 3 years PAST SURGICAL HISTORY OF wisdom teeth PAST SURGICAL HISTORY OF Left 2016 Knee meniscus repair PAST SURGICAL HISTORY OF hx of splinters removed from eye- can't remember which eye VASECTOMY FAMILY HISTORY Problem Relation Age of Onset Diabetes Mother Hypertension Mother Colon Cancer Father Cancer Father lung other (lupus) Father Blood Disease Sister Ischemic Heart Disease Maternal Grandfather Ischemic Heart Disease Paternal Grandmother Diabetes Paternal Grandmother Ischemic Heart Disease Paternal Grandfather Diabetes Paternal Grandfather SOCIAL HISTORY: Social History Tobacco Use Smoking status: Never Passive exposure: Past Smokeless tobacco: Never Vaping Use Vaping Use: Never used Substance Use Topics Alcohol use: Never Drug use: Never MEDICATIONS: Prior to Admission medications as of 01/31/23 0851 Medication Sig Last Dose Taking insulin lispro (HUMALOG PEN SUBCUTANEOUS) Inject subcutaneously three times daily. 65 units with breakfast, 30 units with lunch, 45 units with supper Yes oxyCODONE-acetaminophen (PERCOCET) 5325 mg per tablet Take 1 tablet by mouth twice daily as needed (pain). 5-325mg Yes ttfmmeppqlw-wawhsxmne-vpmwhudv (TRELEGY ELLIPTA) 100-62.5-25 mcg inhalation powder Inhale 1 Puff as instructed every evening. Yes omeprazole (PRILOSEC) 20 mg capsule Take 20 mg by mouth twice daily. Yes cholecalciferol (VITAMIN D3) 5,000 unit tab Take 5,000 Units by mouth once daily. Yes pregabalin (LYRICA) 100 mg capsule Take 100 mg by mouth three times daily. Yes loratadine (CLARITIN) 10 mg tablet Take 10 mg by mouth every morning. Yes Tadalafil (CIALIS) 10 mg tablet Take 10 mg by mouth as needed. Yes ubidecarenone Q-10 (COENZYME Q-10) 10 mg cap Take 100 mg by mouth once daily. Yes albuterol HFA (PROVENTIL HFA, VENTOLIN HFA) 90 mcg/actuation inhaler Inhale 1 Puff as instructed as needed. Yes insulin aspart (NOVOLOG FLEXPEN) 100 unit/mL inpn Inject 20 units sc at breakfast, 25 units at lunch, 30 units at supper. Patient taking differently: As needed per implanted glucose monitor Yes [place]-3 Fatty Acids 500 mg cap Take 1,000 mg by mouth twice daily. Yes lisinopril (ZESTRIL, PRINIVIL) 20 mg tablet Take 20 mg by mouth every morning. Yes atorvastat (more content not included)... [facility] 01-31-2023 Note HNO ID: [id number] Author: Juan Villagomez PA-C Service: ? Author Type: Physician Theatrical Trouper Type: Progress Notes Filed: 01/31/2023 10:34 AM Note Text: Summary: DOS meds PATIENT MEDICATION INSTRUCTIONS Please read below carefully for your personalized instructions. Medications: If you are on blood thinner or anticoagulants including aspirin, please confirm with your surgical team on when to stop these medications. Unless instructed differently by your surgical team, stay on all of your medications until your surgery. Pre-Surgery Med Instructions Medication Instructions insulin lispro (HUMALOG PEN SUBCUTANEOUS) DO NOT TAKE MORNING OF SURGERY oxyCODONE-acetaminophen (PERCOCET) 5325 mg per tablet PRN if needed bbywmveqqfc-gcirmevcl-havnpzrz (TRELEGY ELLIPTA) 100-62.5-25 mcg inhalation powder Use Day of Surgery omeprazole (PRILOSEC) 20 mg capsule Use Day of Surgery cholecalciferol (VITAMIN D3) 5,000 unit tab DO NOT TAKE MORNING OF SURGERY pregabalin (LYRICA) 100 mg capsule Take morning of surgery with a sip of water, no other fluids loratadine (CLARITIN) 10 mg tablet Take morning of surgery with a sip of water, no other fluids Tadalafil (CIALIS) 10 mg tablet Do not take within 2 days of surgery ubidecarenone Q-10 (COENZYME Q-10) 10 mg cap DO NOT TAKE MORNING OF SURGERY albuterol HFA (PROVENTIL HFA, VENTOLIN HFA) 90 mcg/actuation inhaler PRN if needed insulin aspart (NOVOLOG FLEXPEN) 100 unit/mL inpn DO NOT TAKE MORNING OF SURGERY [place]-3 Fatty Acids 500 mg cap DO NOT TAKE MORNING OF SURGERY lisinopril (ZESTRIL, PRINIVIL) 20 mg tablet DO NOT TAKE MORNING OF SURGERY atorvastatin (LIPITOR) 20 mg tablet aspirin, enteric coated (ASPIRIN, ENTERIC COATED) 81 mg EC tablet Follow Prescribers Instructions multivitamin ORAL tablet DO NOT TAKE MORNING OF SURGERY - No diabetic medication the morning of surgery. If you take any medications for erectile dysfunction-Cialis (Tadalafil), Levitra, Staxyn (Vardenafil) Viagra (Sildenenafil please do not take these for 48 hours before surgery. If you have any medication changes between receiving these instructions and your surgery date, please provide this updated information with the nurse who calls you the week day prior to your surgical procedure so we can update your list and provide you with updated instructions for the morning of your procedure. [facility] 01-31-2023 Note HNO ID: [id number] Author: Ada Flores MD Service: ? Author Type: Physician Type: Progress Notes Filed: 01/31/2023 10:34 AM Note Text: 02/13/23 L4/5 PLF - [place] 63 yo [place] man, non-smoker. PMHx of DM-2, insulin requiring, with neuropathy. HTN, HLP, DEION, asthma [facility] 01-16-2023 Miscellaneous Notes Patient notified our instructions state no fiber diet to decrease the amount of stool being made to allow a full clean out for procedure. Failure to be cleaned out could result in not being able to complete procedure. Patent aware and verbalized understanding. Would like to proceed with procedure. Isaura Allen Clinical Scientist Patient called in stating his diabetic doctor has an issue with no fiber - more protein diet leading up to colonoscopy due to sugar levels. Patient asking what to do Please advise Isaura Allen Clinical Scientist Patient notified There will be no interference Patient called in to inform Dr. Ambriz that patient is to have anesthesia for his shot for his back on 01/17/2023 and wasn't sure if this would interfere with colonoscopy at [facility] on 01/15/2023 Please advise Thank you Isaura Allen Clinical Scientist documented in this encounter [facility] 01-15-2023 Note HNO ID: [id number] Author: Lillian Olivarez RN Service: ? Author Type: Registered Nurse Type: Nursing Progress Note Filed: 01/15/2023 9:14 AM Note Text: Patient checked his blood glucose with Vish, result 205 [facility] 01-15-2023 Note HNO ID: [id number] Author: Lillian Olivarez RN Service: ? Author Type: Registered Nurse Type: Nursing Progress Note Filed: 01/15/2023 9:10 AM Note Text: Patient resting, noted to be passing small amounts of air rectally. [facility] 01-15-2023 Nurse Note Patient checked his blood glucose with Vish, result 205 Patient resting, noted to be passing small amounts of air rectally. Patient received in phase II via cart left lateral position, eyes closed but open to verbal stimuli, skin warm and dry, respirations regular and unlabored, abdomen rounded and slightly distended, denies pain, cramps or nausea. Encouraged to pass air rectally as able, resting comfortably on left side. documented in this encounter [facility] 01-15-2023 History and physical note Images from the original note were not included. HISTORY AND PHYSICAL Carlin Siddiqi 1960 REFERRING PHYSICIAN: Carlin Lopez MD CHIEF COMPLAINT: Consult (Colonoscopy last colonoscopy was 10/2019) HPI: The patient is a 62 year old male referred for endoscopy. Carlin notes personal history of colon polyps and family history of colon cancer and is due for high-risk surveillance colonoscopy. Patient denies any change in bowel habits, weight changes, blood in stools, black tarry stools or abdominal pain. The patient notes no upper GI complaints. Carlin has undergone prior endoscopy. Last colonoscopy 11/04/[address] Lopez with removal of multiple polyps, 3 year follow-up recommended. Patient notes recent COVID infection with wheezing since, following with pulm for suspected lung damage. States has upcoming breathing tests later this month and then pulmonology follow-up visit. Denies fever or chills. Denies problems with sedation in the past. PAST MEDICAL HISTORY PAST MEDICAL HISTORY Diagnosis Date Allergic rhinitis, cause unspecified Asthma Asthma Benign neoplasm of colon Diabetic neuropathy (HCC) Essential hypertension, benign libile Family history of malignant neoplasm of gastrointestinal tract family history of colon cancer Family history of malignant neoplasm of gastrointestinal tract Generalized osteoarthrosis, unspecified site back Herpes zoster without mention of complication 01/15/2009 Internal hemorrhoids without mention of complication Low back pain potentially associated with spinal stenosis Other and unspecified hyperlipidemia Sciatica Sleep apnea Snoring Type II or unspecified type diabetes mellitus without mention of complication, not stated as uncontrolled Unspecified constipation PAST SURGICAL HISTORY PAST SURGICAL HISTORY Procedure Laterality Date CARPAL TUNNEL 05/2013 Right CARPAL TUNNEL 06/12/2013 left COLONOSCOPY FLX DX W/COLLJ SPEC WHEN PFRMD 09/13/06 repeat [id number] COLONOSCOPY FLX DX W/COLLJ SPEC WHEN PFRMD 06-17-12 Colonoscopy q5y COLONOSCOPY FLX DX W/COLLJ SPEC WHEN PFRMD 11/04/2019 adenomatous polyps, repeat in 3 years PAST SURGICAL HISTORY OF wisdom teeth CURRENT MEDICATIONS Current Outpatient Medications Medication Sig pregabalin (LYRICA) 100 mg capsule Take 100 mg by mouth three times daily. loratadine (CLARITIN) 10 mg tablet Take by mouth. meloxicam (MOBIC) 15 mg tablet Take 15 mg by mouth once daily. Tadalafil (CIALIS) 10 mg tablet Take 10 mg by mouth as needed. cholecalciferol, vitamin D3, (VITAMIN D3 ORAL) Take 5,000 mg by mouth once daily. ubidecarenone Q-10 (COENZYME Q-10) 10 mg cap Take 100 mg by mouth once daily. albuterol HFA (PROVENTIL HFA, VENTOLIN HFA) 90 mcg/actuation inhaler Inhale 1 Puff as instructed as needed. insulin aspart (NOVOLOG FLEXPEN) 100 unit/mL inpn Inject 20 units sc at breakfast, 25 units at lunch, 30 units at supper. Insulin Cory, Disposable, (PEN NEEDLES) 31 gauge x 1/4 ndle For insulin injection 3x daily. [place]-3 Fatty Acids 500 mg cap Take 1,000 mg by mouth twice daily. lisinopril (ZESTRIL, PRINIVIL) 20 mg tablet Take 10 mg by mouth once daily. atorvastatin (LIPITOR) 20 mg tablet Take 20 mg by mouth once daily. blood sugar diagnostic Misc test strip before meals and at bedtime. accu check test strips Use as instructed 3-4 times daily. COMPOUNDED PRESCRIPTION BLOOD PRESSURE CUFF FOR HOME USE. DX: LABILE BLOOD PRESSURE aspirin, enteric coated (ASPIRIN, ENTERIC COATED) 81 mg EC tablet Take one(1) tablet daily. multivitamin ORAL tablet Take one(1) tablet daily. FLOVENT HFA 220 mcg/actuation inhaler (Patient not taking: Reported on 08/23/2021 ) Insulin Syringe-Needle U-100 1 mL 31 gauge x 5/16 syrg Two daily for insulin injections. insulin glargine (LANTUS) 100 unit/mL injection 60 units in the am and 60 units in the pm. (Patient taking differently: Inject 80 Units subcutaneously. basaglar ) LOVAZA 1 gram capsule Take 2 capsules by mouth twice daily. (Patient not taking: Reported on 08/23/2021 ) No current facility-administered medications for this visit. ALLERGIES: Adhesive Tape (Rosins), [place] [Exenatide], [place], Grass Pollen, Penicillins, Sulfa (Sulfonamide Antibiotics), Thiazides, Trees, and Doxycycline PERSONAL HISTORY: SOCIAL HISTORY Social History Tobacco Use Smoking status: Never Smokeless tobacco: Never Vaping Use Vaping Use: Never used Substance Use Topics Alcohol use: No Drug use: No FAMILY HISTORY: FAMILY HISTORY FAMILY HISTORY Problem Relation Age of Onset Diabetes Mother Hypertension Mother Colon Cancer Father Cancer Father lung other (lupus) Father Blood Disease Sister Ischemic Heart Disease Maternal Grandfather Ischemic Heart Disease Paternal Grandmother Diabetes Paternal Grandmother Ischemic Heart Disease Paternal Grandfather Diabetes Paternal Grandfather REVIEW OF SYMPTOMS: The review of systems data was entered by the nurse and reviewed by wa Nursing Notes: Dinorah Bourne LPN 10/17/2022 3:41 PM Signed REVIEW OF SYSTEMS: General: The patient denies fatigue, denies weight loss, denies weight gain, denies feeling hot, and denies feelings of cold. Eyes: The patient denies glaucoma, denies eye injury/surgery, does not wear glasses or contacts. Ear/Nose/Throat: The patient notes allergies, denies hayfever, denies ear infections, and denies bloody noses. Cardiovascular: The patient denies chest pain, denies heart disease, notes high blood pressure,denies cardiac stent, denies prior heart attack, denies irregular heart beat, denies high cholesterol, denies poor circulation, denies heart failure, other cardiac issues, denies claudication, denies cold feet, denies peripheral arterial stent. Respiratory: The patient denies tuberculosis, denies pneumonia, denies frequent cough, denies pulmonary embolism, denies shortness of breath, and denies coughing up blood. Gastrointestinal: The patient denies difficulty swallowing, denies acid reflux, denies ulcers, denies vomiting, denies jaundice/hepatitis, denies gallbladder problems, denies black or tarry stools, denies hemorrhoids, denies bleeding from rectum, denies diverticulitis, denies constipation, denies diarrhea, denies loss of stool control, and denies hernias. Kidney/Bladder: The patient denies kidney stones, notes urine infections, and notes bloody urine. Skin: The patient denies a history of skin cancer, denies bleeding/changing moles, and notes a history of skin rash. Neurologic: The patient denies a history of epilepsy/convulsions, denies headaches, denies head/spinal injuries, and denies stroke/TIA. Psychiatric: The patient denies psychiatric medications, denies depression, and denies voices, denies substance abuse. Endocrine: The patient denies thyroid disorders, notes diabetes, and denies hormonal problems. Hematologic: The patient denies a history of bruising, denies bleeding, and denies anemia, denies blood clots. Infections: The patient denies a history of measles and mumps, denies rheumatic fever, and denies sexually transmitted diseases. Musculoskeletal: The patient notes back pain/injury, denies back problems, notes sciatica, denies knee/foot trouble, denies arthritis, or denies gout. When was patient's last Mammogram screening? N/A Last Colonoscopy: 2019 Dinorah Bourne LPN I have confirmed and edited as necessary, the PFSH and ROS obtained by others. Flash Echevarria PA-C PHYSICAL EXAMINATION: General: The patient is 62 year old male, well nourished, well hydrated in no acute distress. The patient is oriented to time, place, and person. VITALS: Blood pressure 126/82, pulse 103, temperature 37 C (98.6 F), height 167.6 cm (5' 6 ), weight 118.4 kg (261 lb), SpO2 100 %. Body mass index is 42.13 kg/m . HEENT: Normal cephalic, ataumatic, pupils are equally round, sclera are anicteric, mucous membranes are moist, oropharynx is clear. Neck has no masses, asymmetry or lymphadenopathy. Respiratory: Clear to auscultation and percussion. Normal respiratory excursion and pattern. Cardiac: Examination is regular rate and rhythm. Normal S1/S2 Abdominal exam: Soft, nontender, with no palpable masses. No hepatosplenomegaly. No palpable hernias. Extremities: no clubbing, cyanosis or edema. No adenopathy. LABORATORY VALUES: As Noted RADIOLOGIC STUDIES: As Noted Assessment IMPRESSION: family history of colon cancer, personal history of colon polyps, need for colonoscopy PLAN: I have reviewed my findings with the surgeon. Will plan for lower endoscopy. We discussed the risks and benefits of the planned endoscopy. I have informed the patient that complications can occur including failure to complete the endoscopy and perforation. The patient had the opportunity to ask questions concerning the planned endoscopy. My staff has also explained the procedure to the patient in understandable terms and has given the patient printed material concerning the procedure. The patient freely consents to surgery. The patient was offered a surgery/procedure at a [facility] facility. I have counseled the patient regarding the risk of exposure to and/or potential harm posed by the COVID-19 virus with having a surgery/procedure at this time versus the risk of delaying the surgery/procedure. It is not possible to know either the risk of delaying the surgery or procedure or chance of getting an infection with perfect accuracy, but a joint decision was made between the patient and myself to proceed at this time with endoscopy. I plan to use Golytely bowel preparation Pulmonary clearance requested-pt notes chronic wheezing since COVID infection and has upcoming breathing tests and pulm follow-up Diagnoses: (Z12.11) Encounter for screening for malignant neoplasm of colon (primary encounter diagnosis) (Z86.010) Personal history of colonic polyps I spent a total of 25 minutes on the date of the service which included preparing to see the patient, [id number] patient care, completing clinical documentation, obtaining and/or reviewing separately obtained history, performing a medically appropriate examination, counseling and educating the patient/family/caregiver, and ordering medications, tests, or procedures. Flash Echevarria PA-C UPDATED HISTORY AND PHYSICAL EXAMINATION SERVICE DATE: 01/15/2023 SERVICE TIME: 8:01 AM PHYSICAL EXAM MUST BE COMPLETED ON ADMISSION The History and Physical (completed in the past 30 days) has been reviewed and the patient has been examined. The contents accurately reflect the patient's condition with the following additions or revisions since the H&P was completed. Examination indicates no changes. This H&P can be found in the attached. SIGNATURE: Juan Ambriz III, MD PATIENT NAME: Carlin Siddiqi DATE: January 15, 2023 TIME: 8:01 AM documented in this encounter [facility] 11-24-2022 Miscellaneous Notes Patient called and canceled his colonoscopy screening due to finances. documented in this encounter [facility] 10-17-2022 Note HNO ID: [id number] Author: Flash Echevarria PA-C Service: ? Author Type: Physician Theatrical Trouper Type: Progress Notes Filed: 10/17/2022 5:34 PM Note Text: HISTORY AND PHYSICAL Carlin Siddiqi 1960 REFERRING PHYSICIAN: Carlin Lopez MD CHIEF COMPLAINT: Consult (Colonoscopy last colonoscopy was 10/2019) HPI: The patient is a 62 year old male referred for endoscopy. Carlin notes personal history of colon polyps and family history of colon cancer and is due for high-risk surveillance colonoscopy. Patient denies any change in bowel habits, weight changes, blood in stools, black tarry stools or abdominal pain. The patient notes no upper GI complaints. Carlin has undergone prior endoscopy. Last colonoscopy 11/04/[address] Lopez with removal of multiple polyps, 3 year follow-up recommended. Patient notes recent COVID infection with wheezing since, following with pulm for suspected lung damage. States has upcoming breathing tests later this month and then pulmonology follow-up visit. Denies fever or chills. Denies problems with sedation in the past. PAST MEDICAL HISTORY Diagnosis Date Allergic rhinitis, cause unspecified Asthma Asthma Benign neoplasm of colon Diabetic neuropathy (HCC) Essential hypertension, benign libile Family history of malignant neoplasm of gastrointestinal tract family history of colon cancer Family history of malignant neoplasm of gastrointestinal tract Generalized osteoarthrosis, unspecified site back Herpes zoster without mention of complication 01/15/2009 Internal hemorrhoids without mention of complication Low back pain potentially associated with spinal stenosis Other and unspecified hyperlipidemia Sciatica Sleep apnea Snoring Type II or unspecified type diabetes mellitus without mention of complication, not stated as uncontrolled Unspecified constipation PAST SURGICAL HISTORY Procedure Laterality Date CARPAL TUNNEL 05/2013 Right CARPAL TUNNEL 06/12/2013 left COLONOSCOPY FLX DX W/COLLJ SPEC WHEN PFRMD 09/13/06 repeat [id number] COLONOSCOPY FLX DX W/COLLJ SPEC WHEN PFRMD 06-17-12 Colonoscopy q5y COLONOSCOPY FLX DX W/COLLJ SPEC WHEN PFRMD 11/04/2019 adenomatous polyps, repeat in 3 years PAST SURGICAL HISTORY OF wisdom teeth Current Outpatient Medications Medication Sig pregabalin (LYRICA) 100 mg capsule Take 100 mg by mouth three times daily. loratadine (CLARITIN) 10 mg tablet Take by mouth. meloxicam (MOBIC) 15 mg tablet Take 15 mg by mouth once daily. Tadalafil (CIALIS) 10 mg tablet Take 10 mg by mouth as needed. cholecalciferol, vitamin D3, (VITAMIN D3 ORAL) Take 5,000 mg by mouth once daily. ubidecarenone Q-10 (COENZYME Q-10) 10 mg cap Take 100 mg by mouth once daily. albuterol HFA (PROVENTIL HFA, VENTOLIN HFA) 90 mcg/actuation inhaler Inhale 1 Puff as instructed as needed. insulin aspart (NOVOLOG FLEXPEN) 100 unit/mL inpn Inject 20 units sc at breakfast, 25 units at lunch, 30 units at supper. Insulin Cory, Disposable, (PEN NEEDLES) 31 gauge x 1/4 ndle For insulin injection 3x daily. [place]-3 Fatty Acids 500 mg cap Take 1,000 mg by mouth twice daily. lisinopril (ZESTRIL, PRINIVIL) 20 mg tablet Take 10 mg by mouth once daily. atorvastatin (LIPITOR) 20 mg tablet Take 20 mg by mouth once daily. blood sugar diagnostic Misc test strip before meals and at bedtime. accu check test strips Use as instructed 3-4 times daily. COMPOUNDED PRESCRIPTION BLOOD PRESSURE CUFF FOR HOME USE. DX: LABILE BLOOD PRESSURE aspirin, enteric coated (ASPIRIN, ENTERIC COATED) 81 mg EC tablet Take one(1) tablet daily. multivitamin ORAL tablet Take one(1) tablet daily. FLOVENT HFA 220 mcg/actuation inhaler (Patient not taking: Reported on 08/23/2021 ) Insulin Syringe-Needle U-100 1 mL 31 gauge x 5/16 syrg Two daily for insulin injections. insulin glargine (LANTUS) 100 unit/mL injection 60 units in the am and 60 units in the pm. (Patient taking differently: Inject 80 Units subcutaneously. basaglar ) LOVAZA 1 gram capsule Take 2 capsules by mouth twice daily. (Patient not taking: Reported on 08/23/2021 ) No current facility-administered medications for this visit. ALLERGIES: Adhesive Tape (Rosins), Byetta [Exenatide], [place], Grass Pollen, Penicillins, Sulfa (Sulfonamide Antibiotics), Thiazides, Trees, and Doxycycline PERSONAL HISTORY: Social History Tobacco Use Smoking status: Never Smokeless tobacco: Never Vaping Use Vaping Use: Never used Substance Use Topics Alcohol use: No Drug use: No FAMILY HISTORY: FAMILY HISTORY Problem Relation Age of Onset Diabetes Mother Hypertension Mother Colon Cancer Father Cancer Father lung other (lupus) Father Blood Disease Sister Ischemic Heart Disease Maternal Grandfather Ischemic Heart Disease Paternal Grandmother Diabetes Paternal Grandmother Ischemic Heart Disease Paternal Grandfather Diabetes Paternal Grandfather REVIEW (more content not included)... [facility] 10-17-2022 History of Presen t illness Narrative HISTORY AND PHYSICAL Carlin Guzman Devang 1960 REFERRING PHYSICIAN: Carlin Lopez MD CHIEF COMPLAINT: Consult (Colonoscopy last colonoscopy was 10/2019) HPI: The patient is a 62 year old male referred for endoscopy. Carlin notes personal history of colon polyps and family history of colon cancer and is due for high-risk surveillance colonoscopy. Patient denies any change in bowel habits, weight changes, blood in stools, black tarry stools or abdominal pain. The patient notes no upper GI complaints. Carlin has undergone prior endoscopy. Last colonoscopy 11/04/[address] Lopez with removal of multiple polyps, 3 year follow-up recommended. Patient notes recent COVID infection with wheezing since, following with pulm for suspected lung damage. States has upcoming breathing tests later this month and then pulmonology follow-up visit. Denies fever or chills. Denies problems with sedation in the past. PAST MEDICAL HISTORY Diagnosis Date Allergic rhinitis, cause unspecified Asthma Asthma Benign neoplasm of colon Diabetic neuropathy (HCC) Essential hypertension, benign libile Family history of malignant neoplasm of gastrointestinal tract family history of colon cancer Family history of malignant neoplasm of gastrointestinal tract Generalized osteoarthrosis, unspecified site back Herpes zoster without mention of complication 01/15/2009 Internal hemorrhoids without mention of complication Low back pain potentially associated with spinal stenosis Other and unspecified hyperlipidemia Sciatica Sleep apnea Snoring Type II or unspecified type diabetes mellitus without mention of complication, not stated as uncontrolled Unspecified constipation PAST SURGICAL HISTORY Procedure Laterality Date CARPAL TUNNEL 05/2013 Right CARPAL TUNNEL 06/12/2013 left COLONOSCOPY FLX DX W/COLLJ SPEC WHEN PFRMD 09/13/06 repeat [id number] COLONOSCOPY FLX DX W/COLLJ SPEC WHEN PFRMD 06-17-12 Colonoscopy q5y COLONOSCOPY FLX DX W/COLLJ SPEC WHEN PFRMD 11/04/2019 adenomatous polyps, repeat in 3 years PAST SURGICAL HISTORY OF wisdom teeth Current Outpatient Medications Medication Sig pregabalin (LYRICA) 100 mg capsule Take 100 mg by mouth three times daily. loratadine (CLARITIN) 10 mg tablet Take by mouth. meloxicam (MOBIC) 15 mg tablet Take 15 mg by mouth once daily. Tadalafil (CIALIS) 10 mg tablet Take 10 mg by mouth as needed. cholecalciferol, vitamin D3, (VITAMIN D3 ORAL) Take 5,000 mg by mouth once daily. ubidecarenone Q-10 (COENZYME Q-10) 10 mg cap Take 100 mg by mouth once daily. albuterol HFA (PROVENTIL HFA, VENTOLIN HFA) 90 mcg/actuation inhaler Inhale 1 Puff as instructed as needed. insulin aspart (NOVOLOG FLEXPEN) 100 unit/mL inpn Inject 20 units sc at breakfast, 25 units at lunch, 30 units at supper. Insulin Cory, Disposable, (PEN NEEDLES) 31 gauge x 1/4 ndle For insulin injection 3x daily. [place]-3 Fatty Acids 500 mg cap Take 1,000 mg by mouth twice daily. lisinopril (ZESTRIL, PRINIVIL) 20 mg tablet Take 10 mg by mouth once daily. atorvastatin (LIPITOR) 20 mg tablet Take 20 mg by mouth once daily. blood sugar diagnostic Misc test strip before meals and at bedtime. accu check test strips Use as instructed 3-4 times daily. COMPOUNDED PRESCRIPTION BLOOD PRESSURE CUFF FOR HOME USE. DX: LABILE BLOOD PRESSURE aspirin, enteric coated (ASPIRIN, ENTERIC COATED) 81 mg EC tablet Take one(1) tablet daily. multivitamin ORAL tablet Take one(1) tablet daily. FLOVENT HFA 220 mcg/actuation inhaler (Patient not taking: Reported on 08/23/2021 ) Insulin Syringe-Needle U-100 1 mL 31 gauge x 5/16 syrg Two daily for insulin injections. insulin glargine (LANTUS) 100 unit/mL injection 60 units in the am and 60 units in the pm. (Patient taking differently: Inject 80 Units subcutaneously. basaglar ) LOVAZA 1 gram capsule Take 2 capsules by mouth twice daily. (Patient not taking: Reported on 08/23/2021 ) No current facility-administered medications for this visit. ALLERGIES: Adhesive Tape (Rosins), [place]etta [Exenatide], [place], Grass Pollen, Penicillins, Sulfa (Sulfonamide Antibiotics), Thiazides, Trees, and Doxycycline PERSONAL HISTORY: Social History Tobacco Use Smoking status: Never Smokeless tobacco: Never Vaping Use Vaping Use: Never used Substance Use Topics Alcohol use: No Drug use: No FAMILY HISTORY: FAMILY HISTORY Problem Relation Age of Onset Diabetes Mother Hypertension Mother Colon Cancer Father Cancer Father lung other (lupus) Father Blood Disease Sister Ischemic Heart Disease Maternal Grandfather Ischemic Heart Disease Paternal Grandmother Diabetes Paternal Grandmother Ischemic Heart Disease Paternal Grandfather Diabetes Paternal Grandfather REVIEW OF SYMPTOMS: The review of systems data was entered by the nurse and reviewed by wa Nursing Notes: Dinorah Bourne LPN 10/17/2022 3:41 PM Signed REVIEW OF SYSTEMS: General: The patient denies fatigue, denies weight loss, denies weight gain, denies feeling hot, and denies feelings of cold. Eyes: The patient denies glaucoma, denies eye injury/surgery, does not wear glasses or contacts. Ear/Nose/Throat: The patient notes allergies, denies hayfever, denies ear infections, and denies bloody noses. Cardiovascular: The patient denies chest pain, denies heart disease, notes high blood pressure,denies cardiac stent, denies prior heart attack, denies irregular heart beat, denies high cholesterol, denies poor circulation, denies heart failure, other cardiac issues, denies claudication, denies cold feet, denies peripheral arterial stent. Respiratory: The patient denies tuberculosis, denies pneumonia, denies frequent cough, denies pulmonary embolism, denies shortness of breath, and denies coughing up blood. Gastrointestinal: The patient denies difficulty swallowing, denies acid reflux, denies ulcers, denies vomiting, denies jaundice/hepatitis, denies gallbladder problems, denies black or tarry stools, denies hemorrhoids, denies bleeding from rectum, denies diverticulitis, denies constipation, denies diarrhea, denies loss of stool control, and denies hernias. Kidney/Bladder: The patient denies kidney stones, notes urine infections, and notes bloody urine. Skin: The patient denies a history of skin cancer, denies bleeding/changing moles, and notes a history of skin rash. Neurologic: The patient denies a history of epilepsy/convulsions, denies headaches, denies head/spinal injuries, and denies stroke/TIA. Psychiatric: The patient denies psychiatric medications, denies depression, and denies voices, denies substance abuse. Endocrine: The patient denies thyroid disorders, notes diabetes, and denies hormonal problems. Hematologic: The patient denies a history of bruising, denies bleeding, and denies anemia, denies blood clots. Infections: The patient denies a history of measles and mumps, denies rheumatic fever, and denies sexually transmitted diseases. Musculoskeletal: The patient notes back pain/injury, denies back problems, notes sciatica, denies knee/foot trouble, denies arthritis, or denies gout. When was patient's last Mammogram screening? N/A Last Colonoscopy: 2019 Dinorah Bourne LPN I have confirmed and edited as necessary, the PFSH and ROS obtained by others. Flash Echevarria PA-C PHYSICAL EXAMINATION: General: The patient is 62 year old male, well nourished, well hydrated in no acute distress. The patient is oriented to time, place, and person. VITALS: Blood pressure 126/82, pulse 103, temperature 37 C (98.6 F), height 167.6 cm (5' 6 ), weight 118.4 kg (261 lb), SpO2 100 %. Body mass index is 42.13 kg/m . HEENT: Normal cephalic, ataumatic, pupils are equally round, sclera are anicteric, mucous membranes are moist, oropharynx is clear. Neck has no masses, asymmetry or lymphadenopathy. Respiratory: Clear to auscultation and percussion. Normal respiratory excursion and pattern. Cardiac: Examination is regular rate and rhythm. Normal S1/S2 Abdominal exam: Soft, nontender, with no palpable masses. No hepatosplenomegaly. No palpable hernias. Extremities: no clubbing, cyanosis or edema. No adenopathy. LABORATORY VALUES: As Noted RADIOLOGIC STUDIES: As Noted Assessment IMPRESSION: family history of colon cancer, personal history of colon polyps, need for colonoscopy PLAN: I have reviewed my findings with the surgeon. Will plan for lower endoscopy. We discussed the risks and benefits of the planned endoscopy. I have informed the patient that complications can occur including failure to complete the endoscopy and perforation. The patient had the opportunity to ask questions concerning the planned endoscopy. My staff has also explained the procedure to the patient in understandable terms and has given the patient printed material concerning the procedure. The patient freely consents to surgery. The patient was offered a surgery/procedure at a [facility] facility. I have counseled the patient regarding the risk of exposure to and/or potential harm posed by the COVID-19 virus with having a surgery/procedure at this time versus the risk of delaying the surgery/procedure. It is not possible to know either the risk of delaying the surgery or procedure or chance of getting an infection with perfect accuracy, but a joint decision was made between the patient and myself to proceed at this time with endoscopy. I plan to use Golytely bowel preparation Pulmonary clearance requested-pt notes chronic wheezing since COVID infection and has upcoming breathing tests and pulm follow-up Diagnoses: (Z12.11) Encounter for screening for malignant neoplasm of colon (primary encounter diagnosis) (Z86.010) Personal history of colonic polyps I spent a total of 25 minutes on the date of the service which included preparing to see the patient, [id number] patient care, completing clinical documentation, obtaining and/or reviewing separately obtained history, performing a medically appropriate examination, counseling and educating the patient/family/caregiver, and ordering medications, tests, or procedures. Flash Echevarria PA-C documented in this encounter [facility] 10-17-2022 Nurse Note REVIEW OF SYSTEMS: General: The patient denies fatigue, denies weight loss, denies weight gain, denies feeling hot, and denies feelings of cold. Eyes: The patient denies glaucoma, denies eye injury/surgery, does not wear glasses or contacts. Ear/Nose/Throat: The patient notes allergies, denies hayfever, denies ear infections, and denies bloody noses. Cardiovascular: The patient denies chest pain, denies heart disease, notes high blood pressure,denies cardiac stent, denies prior heart attack, denies irregular heart beat, denies high cholesterol, denies poor circulation, denies heart failure, other cardiac issues, denies claudication, denies cold feet, denies peripheral arterial stent. Respiratory: The patient denies tuberculosis, denies pneumonia, denies frequent cough, denies pulmonary embolism, denies shortness of breath, and denies coughing up blood. Gastrointestinal: The patient denies difficulty swallowing, denies acid reflux, denies ulcers, denies vomiting, denies jaundice/hepatitis, denies gallbladder problems, denies black or tarry stools, denies hemorrhoids, denies bleeding from rectum, denies diverticulitis, denies constipation, denies diarrhea, denies loss of stool control, and denies hernias. Kidney/Bladder: The patient denies kidney stones, notes urine infections, and notes bloody urine. Skin: The patient denies a history of skin cancer, denies bleeding/changing moles, and notes a history of skin rash. Neurologic: The patient denies a history of epilepsy/convulsions, denies headaches, denies head/spinal injuries, and denies stroke/TIA. Psychiatric: The patient denies psychiatric medications, denies depression, and denies voices, denies substance abuse. Endocrine: The patient denies thyroid disorders, notes diabetes, and denies hormonal problems. Hematologic: The patient denies a history of bruising, denies bleeding, and denies anemia, denies blood clots. Infections: The patient denies a history of measles and mumps, denies rheumatic fever, and denies sexually transmitted diseases. Musculoskeletal: The patient notes back pain/injury, denies back problems, notes sciatica, denies knee/foot trouble, denies arthritis, or denies gout. When was patient's last Mammogram screening? N/A Last Colonoscopy: 2019 Dinorah Bourne LPN documented in this encounter [facility] Evaluation + Plan note No data available for this section [facility] Evaluation + Plan note Future Appointments Appointment Date:05/16/2022 10:30:00 AM Scheduled Provider:KACEY AUSTIN MD Location:[facility] Appointment Type:PM OV [facility] Diagnosis Encounter for screening for malignant neoplasm of colon- Primary Special screening for malignant neoplasms, colon Personal history of colonic polyps Family history of colon cancer Family history of malignant neoplasm of gastrointestinal tract [facility] No data available for this section [facility] Progress note No data available for this section [facility] Reason for referral (narrative)* Outpatient Procedure (Routine) - Closed Specialty Diagnoses / Procedures Referred By Contmarilyn t Referred To Contact [facility] Diagnoses Personal history of colonic polyps Family history of colon cancer Procedures COLONOSCOPY SCREENING COLONOSCOPY FLX DX W/COLLJ SPEC WHEN PFRMD Flash Echevarria PA-C [address] [place] [address] [facility] [address] [place] [address] Referral ID Status Reason Start Date Expiration Date V isits Requested Visits Authorized [id number] Closed Auto-Generate d Referral 10/17/2022 10/17/2023 1 [facility] N[facility]ative* Outpatient Procedure (Routine) - Closed Specialty Diagnoses / Procedures Referred By Anthony price Referred To Contact [facility] Diagnoses Personal history of colonic polyps Family history of colon cancer Procedures COLONOSCOPY SCREENING COLONOSCOPY FLX DX W/COLLJ SPEC WHEN PFRMD Flash Echevarria PA-C [address] [place] [address] [facility] [address] [place] [address] Referral ID Status Reason Start Date Expiration Date V isits Requested Visits Authorized [id number] Closed Auto-Generate d Referral 10/17/2022 10/17/2023 1 1 [facility] Summary Purpose Family History No Family History Records FoundNo Family History Records FoundNo Family History Records Found Advance Directives Latest Code Status on File Code Status Date Activated Date Inactivated Comments Full Code 02/13/2023 12:50 PM Full Code Order Discussed With: Discussion Not M edically Appropriate Latest Code Status on File Code Status Date Activated Date Inactivated Comments Full Code 02/13/2023 12:50 PM 02/14/2023 8:08 PM Question Answer Comments Full Code Order Discussed With: Discussion Not Medically Appropriate Medications Administered Section Inactive Administered Medications - up to 3 most recent administrations Medication Order MAR Action Action Date Dose Rate Site diphenhydrAMINE 12.5-50 mg injection (BENADRYL) 12.5-50 mg, INTRAVENOUS, DIRECTED, Starting on Sun01/15/23 at 0830, Until Sun01/15/23 at 1229, DOSING DIRECTED BY PHYSICIAN FOR PROCEDURAL SEDATION ONLY, Intraprocedure Given 01/15/2023 8:11 AM EDT 50 mg fentaNYL 50 mcg/mL 25-100 mcg injection (SUBLIMAZE) 25-100 mcg, INTRAVENOUS, DIRECTED, Starting on Sun01/15/23 at 0830, Until Sun01/15/23 at 1229, DOSING DIRECTED BY PHYSICIAN FOR PROCEDURAL SEDATION ONLY, Intraprocedure Given 01/15/2023 8:08 AM EDT 50 mcg lactated ringers iv infusion 30 mL/hr, INTRAVENOUS, CONTINUOUS, Starting on Sun01/15/23 at 0800, Until Sun01/15/23 at 0830, Preprocedure New Bag/Syringe/Norma le 01/15/2023 7:50 AM EDT 30 mL/hr 30 mL/hr Hand, Right midazolam 1-5 mg injection (VERSED) 1-5 mg, INTRAVENOUS, DIRECTED, Starting on Sun01/15/23 at 0830, Until Sun01/15/23 at 1229, DOSING DIRECTED BY PHYSICIAN FOR PROCEDURAL SEDATION ONLY, Intraprocedure Given 01/15/2023 8:08 AM EDT 3 mg ondansetron (PF) 4 mg injection (ZOFRAN) 4 mg, INTRAVENOUS, DIRECTED, Starting on Sun01/15/23 at 0830, Until Sun01/15/23 at 1229, DOSING DIRECTED BY PHYSICIAN FOR PROCEDURAL SEDATION ONLY, Intraprocedure Given 01/15/2023 8:20 AM EDT 4 mg Additional Source Comments Care Team (unrecognized sect ion and content) Senior It Architect Relationship Specialty Start Date End Date Rj Chaidez MD PCP - General Family Medicine 04/03/13 Senior It Architect Relationship Specialty Start Date End Date Rj Chaidez MD PCP - General Family Medicine 04/03/13 Senior It Architect Relationship Specialty Start Date End Date Kacey Sagastume [address] [facility] [address] [place] [address] PCP - General Family Medicine 02/06/23 Senior It Architect Relationship Specialty Start Date End Date Rj Chaidez MD PCP - General Family Medicine 04/03/13 02/05/23 Care Team (unrecognized sect ion and content) Care Team Personnel Name: RJ CHAIDEZ MD Member Role: Primary Care Physician Address: Address: [address] [place] [address] Care Team Related Persons Name: MICHAEL SIDDIQI Care Team Personnel Name: RJ CHAIDEZ MD Member Role: Primary Care Physician Address: Address: [address] [place] [address]- Care Team Related Persons Name: MICHAEL SIDDIQI Care Team Personnel Name: RJ CHAIDEZ MD Member Role: Primary Care Physician Address: Address: [address] [place] [address]- Care Team Related Persons Name: MICHAEL SIDDIQI Source Comments (unrecognize d section and content) In the event this informatio n is protected by the Federal Confidentiality of Alcohol and Drug Abuse Patient Records regulations: The Federal rules restrict any use of the information to criminally investigate or prosecute any alcohol or drug abuse patient.[facility] the event this information is protected by the Federal Confidentiality of Alcohol and Drug Abuse Patient Records regulations: The Federal rules restrict any use of the information to criminally investigate or prosecute any alcohol or drug abuse patient.[facility] the event this information is protected by the Federal Confidentiality of Alcohol and Drug Abuse Patient Records regulations: The Federal rules restrict any use of the information to criminally investigate or prosecute any alcohol or drug abuse patient.[facility] the event this information is protected by the Federal Confidentiality of Alcohol and Drug Abuse Patient Records regulations: The Federal rules restrict any use of the information to criminally investigate or prosecute any alcohol or drug abuse patient.[facility] the event this information is protected by the Federal Confidentiality of Alcohol and Drug Abuse Patient Records regulations: The Federal rules restrict any use of the information to criminally investigate or prosecute any alcohol or drug abuse patient.[facility] Reason for Visit (unrecogniz ed section and content) Reason Comments Procedure Cancellation Reason Comments Patient Update Specialty Diagnoses / Procedures Referred By Contac t Referred To Contact Diagnoses Spondylolisthesis of lumbar region 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 Displacement of lumbar intervertebral disc without myelopathy Intervertebral disc 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 Procedures ARTHRODESIS POSTERIOR/PSTLAT TQ [id number] LUMBAR POSTERIOR NON-SEGMENTAL INSTRUMENTATION MARTINES FACETECTOMY & FORAMOTOMY 1 VRT SGM LUMBAR MARTINES FACETECTOMY&FORAMOT 1 VRT SGM EA ADDL SGM BONE MARROW ASPIRATION BONE GRFG SPI SURG ONLY AUTOGRAFT SPINE SURGERY LOCAL FROM SAME INCISION ALLOGRAFT FOR SPINE SURGERY ONLY MORSELIZED FUSION LUMBAR POSTERIOR LEVEL 1 POSTERIOR NON-SEGMENTAL INSTRUMENTATION FOLLOWING LUMBAR FUSION 1 LEVEL PDFI DECOMPRESSION LAMINECTOMY LUMBAR POSTERIOR LEVEL 1 DECOMPRESSION LAMINECTOMY 1ST ADD'L LUMBAR SEGMENT BONE MARROW ASPIRATION FOR BONE GRAFTING,SPINE SURGERY ONLY,VIA SEPARATE SKIN OR FASCIAL INCISION AUTOGRAFT FOR SPINE SURGERY ONLY, OBTAINED FROM SAME INCISION ALLOGRAFT FOR SPINE SURGERY MORSELIZED [facility] [address] [place] [address] Referral ID Status Reason Start Date Expiration Date Visits Re quested Visits Authorized [id number] 1 1 (unrecognized sect ion and content) No Status Records FoundNo Status Records FoundNo Status Records Found INFORMATION SOURCE (unrecogn ized section and content) DATE CREATED AUTHOR AUTHOR'S ORGANIZ ATION 02/19/2023 [facility] DATE CREATED AUTHOR AUTHOR'S ORGANIZ ATION 02/19/2023 [facility] FOR RECORDS PERTAINING TO PATIENTS WHO ARE OR HAVE BEEN ENROLLED IN A CHEMICAL DEPENDENCY/SUBSTANCEABUSE PROGRAM, SOME INFORMATION MAY BE OMITTED. This clinical summary was aggregated from multiple sources. Caution should be exercised in using it in the provision of clinical care. This summary normalizes information from multiple sources, and as a consequence, information in this document may materially change the coding, format and clinical context of patient data. In addition, data may be omitted in some cases. CLINICAL DECISIONS SHOULD BE BASED ON THE PRIMARY CLINICAL RECORDS. [facility] [employer] [facility]. provides no warranty or guarantee of the accuracy or completeness of information in this document.
== END | disposition home or self-care (01) ==
PROVIDERS: PCP Family Medicine; Referring Provider Clinical Nurse Specialist Adult Health; Visit Provider Clinical Nurse Specialist Adult Health
DX: M50.30 Other cervical disc degeneration, unspecified cervical region (principal); M19.011 Primary osteoarthritis, right shoulder; M19.012 Primary osteoarthritis, left shoulder
CPT/HCPCS: 72050; 73030

== ENCOUNTER → 2023-09-27 | Outpatient (CLI) | payer OTHER, SELFPAY ==
[2023-09-27 16:25] LABS: Bacteria 0 SEEN /hpf (None Seen); Mucous, Urine 0 SEEN /hpf (<or=2+); Red Blood Cells-Urine 0 SEEN /hpf (0-5); Squamous Epithelial Cells - UA 0 SEEN /hpf (0-5); White Blood Cells 0 SEEN /hpf (0-5)
--- OUTSIDE RECORDS SUMMARY | 2023-09-27 16:39 | XMS RPT_ITS | CCD ---
Author Name Unknown Address [address] [place] [address] Organization [facility] Care Team Providers Care Loading Unit Operator Seating Name Role Phone DM GARCIA, RJ Primary Care Physician [phone] Dm GARCIA, Rj Winston Primary Care Provider [phone] DR NIK LEGER DO Attending Dwight CHAIDEZ MD, RJ Primary Care Unavailable DM GARCIA, RJ [facility] Care Unavailable DEANNA HASTINGS CNP Attending Unavailable DM GARCIA, RJ Primary Care Unavailable BEREKET MENDEZ MD Attending Unavailable DM GARCIA, RJ Primary Care Unavailable GEOVANNA GARCIA., KACEY Guzman Attending Unavailable DM GARCIA, RJ [facility] Unavailable GEOVANNA ROMERO, KACEY Guzman Attending Unavailable DM GARCIA, RJ Primary Care Unavailable EDIE CHRIS DO Attending Unavailable AFRICA BERTRAND, DR ZARAGOZA Attending Dwight CHAIDEZ MD, RJ [facility] Unavailable Kacey Sagastume Primary [facility] Provider [phone] RJ CHAIDEZ Primary [facility] Unavailable NIK LEGER Admitting Unavailable NIK LEGER Attending Unavailable RJ CHAIDEZ Primary [facility] Unavailable KACEY SAGASTUME Primary [facility] UnavailJUAN Mitchell Attending Unavailable RJ CHAIDEZ Primary Care Unavailable FLASH ECHEVARRIA Referring Unavailable CARLIN LOPEZ Referring Unavailable RJ CHAIDEZ Primary Care Unavailable FLASH ECHEVARRIA Attending Unavailable Dm GARCIA, Rj Winston Primary Care Provider Allergies Allergy Classification Reported Allergen(s) Allergy Type Date of Onset Reaction(s) Facility (13 sources) Doxycycline; Translations: [doxycycline] Drug Allergy [address] [place] [address] (6 sources) Penicillin; Translations: [penicillin] Drug Allergy Rash [facility] (6 sources) Sulfonamides (Antibiotic); Translations: [sulfa drugs] Drug allergy Rash [facility] (11 sources) exenatide; Translations: [exenatide] Drug Allergy 6 Nausea (finding), GI Upset [facility] (7 sources) Adhesive Tape; Translations: [ADHESIVE TAPE (ROSINS)] Propensity to adverse reactions to substance 4 Rash, Itching [facility] (7 sources) Grass pollen; Translations: [GRASS POLLEN] Drug Allergy 2 Other: See Comments [facility] Work Phone: (7 sources) Penicillins; Translations: [PENICILLINS] Propensity to adverse reactions 5 [facility] Work Phone: (7 sources) Sulfonamides (Antibiotic); Translations: [SULFA (SULFONAMIDE ANTIBIOTICS)] Propensity to adverse reactions 5 [facility] Work Phone: (7 sources) Thiazides; Translations: [THIAZIDES] Drug Allergy 5 [facility] Work Phone: (7 sources) Tree; Translations: [TREES] Allergy to substance 2 Other: See Comments [facility] Work Phone: (7 sources) La Tierra; Translations: [GOLDENROD] Allergy to substance 2 Other: See Comments [facility] Work Phone: Medications Current Medications Medication Drug Class(es) Dates Sig (Normalized) Sig (Original) acetaminophen 325 mg / HYDROcodone bitartrate 5 mg oral tablet (4 sources) Opioid Agonist Start: 04-18-2022 take 1 tablet by mouth twice daily as needed for pain Warren 325- 5 mg oral tablet Dose = 1 tab(s), Oral, BID, PRN for pain, # 60 tab(s), 0 Refill(s), [facility], Lumbar foraminal stenosis Lumbar radiculopathy, 167.6, [...] sources) Long-term current use of insulin; Translations: [alf (current) use of insulin] Onset: 09-15-2015 09-15-2015 Episodic Other aftercare (1 source) alf (current) use of insulin; Translations: [Type 2 [...] 66 mm[Hg] Juan Ambriz MD Work Phone: [facility] 01-15-2023 08:58-0400 Heart rate 96 /min Juan Ambriz MD Work Phone: [facility] 01-15-2023 08:58-0400 Respiratory rate 16 /min Juan Ambriz MD Work Phone: [facility] 01-15-2023 08:58-0400 SaO2% (BldA) [Mass fraction] 94 % Juan Ambriz MD Work Phone: [facility] 01-15-2023 08:58-0400 Systolic blood pressure 116 mm[Hg] Juan Ambriz MD Work Phone: [facility] 01-15-2023 07:48-0400 Body temperature 98.2 [degF] Juan Ambriz MD Work Phone: [facility] 01-15-2023 07:48-0400 Body weight 118.4 kg Juan Ambriz MD Work Phone: [facility] 10-17-2022 15:39-0500 Body height 167.6 cm Flash Swathi PA-C Work Phone: [facility] 10-17-2022 15:39-0500 Body temperature 98.6 [degF] Flash [place] PA-C Work Phone: [facility] 10-17-2022 15:39-0500 Body weight 118.39 kg Flash [place] PA-C Work Phone: [facility] 10-17-2022 15:39-0500 Diastolic blood pressure 82 mm[Hg] Flash [place] PA-C Work Phone: [facility] 10-17-2022 15:39-0500 Heart rate 103 /min Flash Swathi PA-C Work Phone: [facility] 10-17-2022 15:39-0500 SaO2% (BldA) [Mass fraction] 100 % Flash [place] PA-C Work Phone: [facility] 10-17-2022 15:39-0500 Systolic blood pressure 126 mm[Hg] Flash Echevarria PA-C Work Phone: [facility] Encounters Encounter Date Encounter Type Care Provider Facility Start: 02-13-2023 End: 02-14-2023 ambulatory NIK LEGER Facility:[id number] Start: 02-13-2023 End: 02-13-2023 Subsequent hospital visit by physician Penny [facility] Start: 01-31-2023 End: 02-01-2023 ambulatory RJ CHAIDEZ Facility:[id number] Start: 01-31-2023 Encounter for other preprocedural examination [facility] Start: 01-15-2023 End: 01-15-2023 ambulatory JUAN AMBRIZ Facility:[facility] Start: 01-15-2023 End: 01-15-2023 Subsequent hospital visit by physician Juan Ambriz MD Work Phone: [facility] Procedures Date Procedure Procedure Detail Performing Clinician Start: 01-31-2023 Antibody screen RJ MONTELONGO Plan of Treatment Date Care Activity Detail Author Start: 01-16-2028 Colonoscopy Colonoscopy [facility] Start: 01-16-2028 Colorectal Cancer Screening Colorectal Cancer Screening [facility] Start: 01-15-2026 Colonoscopy COLONOSCOPY [facility] Start: 01-15-2026 COLORECTAL CANCER SCREENING COLORECTAL CANCER SCREENING [facility] Start: 08-03-2023 Hemoglobin A1c/Hemoglobin.total in Blood HBA1C [facility] Start: 05-11-2023 Covid-19 Vaccine ( season) Covid-19 Vaccine () [facility] Start: 05-11-2023 Influenza vaccination Influenza Vacc ine (#1) [facility] Start: 11-04-2022 Colonoscopy COLONOSCOPY [facility] Start: 11-04-2022 COLORECTAL CANCER SCREENING COLORECTAL CANCER SCREENING [facility] Start: 09-10-2022 DEPRESSION ASSESSMENT DEPRESSION ASS ESSMENT [facility] Start: 11-02-2021 COVID-19 VACCINE (4 - Booster for Moderna series) COVID-19 VACCINE (4 - Booster for Moderna series) [facility] Start: 2020 Hepatitis B Vaccine (1 of 3 - Risk 3-dose series) Hepatitis B Vaccine (1 of 3 - Risk 3-dose series) [facility] Start: 2020 RSV Vaccine (1 - 1-d ose 60+ series) RSV Vaccine (1 - 1-dose 60+ series) [facility] Start: 09-15-2016 3 comp foot exam completed DIABETIC FOOT EXAM [facility] Start: 03-19-2016 Hepatitis B screening URINE AL BUMIN:CREATININE RATIO [facility] Start: 03-19-2016 Hepatitis B surface antibody level LDL CHOLESTEROL [facility] Start: 03-15-2016 Hemoglobin A1c/Hemoglobin.total in Blood HBA1C [facility] Start: 01-08-2016 Hepatitis C antibody , confirmatory test DILATED RETINAL EXAM [facility] Start: 08-31-2015 PROSTATE CANCER SCRE ENING DISCUSSION PROSTATE CANCER SCREENING DISCUSSION [facility] Start: 03-17-2010 PNEUMOCOCCAL (2 - PCV) PNEUMOCOCCAL (2 - PCV) [facility] Start: 03-17-2010 Pneumococcal vaccination Pneum ococcal Vaccine (2 - PCV) [facility] Start: 01-08-2010 SHINGRIX VACCINE (1 of 2) SHINGRIX V ACCINE (1 of 2) [facility] Start: 01-08-2005 COLOGUARD (FIT-DNA) COLOGUARD (FIT-D NA) [facility] Start: 01-08-[address] COLONOGRAPHY [facility] Start: 01-08-2005 FECAL OCCULT BLOOD FECAL OCCULT BLOO D [facility] Start: 01-08-2005 SIGMOIDOSCOPY SIGMOIDOSCOPY [facility] Start: 01-08-1979 Urine microalbumin profile [facility] Start: 01-08-1978 ANNUAL PCP TEAM GAS ENGINE REPAIRER EDGAR DISEASE VISIT ANNUAL PCP TEAM CHRONIC DISEASE VISIT [facility] Start: 01-08-1978 BP CONTROLLED (<130/80) BP CONTROLLE D (<130/80) [facility] Start: 01-08-1978 HEPATITIS C SCREENING HEPATITIS C SC REENING [facility] Start: 01-08-1978 HIV SCREENING HIV SCREENING [facility] Immunizations Immunization Date Immunization Notes Care Provider Fa cility 07-24-2022 influenza virus vacc ine, unspecified formulation Juan Ambriz MD Work Phone: [facility] 12-03-2020 COVID-19, mRNA, LNP- S, PF, 100 mcg/ 0.5 mL dose; Translations: [Moderna COVID-19 Vaccine] BHAVANI SCHULTE [facility] 11-05-2020 COVID-19, mRNA, LNP- S, PF, 100 mcg/ 0.5 mL dose; Translations: [Moderna COVID-19 Vaccine] BHAVANI SCHULTE [facility] 03-17-2009 pneumococcal polysaccharide vaccine, 23 valent Flash Echevarria PA-C Work Phone: [facility] Work Phone: 07-18-2006 influenza virus vacc ine, unspecified formulation Flash Echevarria PA-C Work Phone: [facility] Work Phone: Payers Date Payer Category Payer Unknown [id number] 2019 Unknown [id number] 1960 Unknown [id number] 2.16.8 [id number] 1960 Unknown [id number] 2.16.8 [id number] 1960 Unknown [id number] 2.16.8 [id number] 1960 Unknown [id number] 2.16.8 [id number] 1960 Unknown [id number] 2.16.8 [id number] 1960 Unknown [id number] 2.16.8 [id number] 1960 Unknown [id number] 2.16.8 [id number] Social History Date Type Detail Facility Start: 10-28-2012 End: 07-23-2019 Never smoked tobacco (finding) [facility] Sex Assigned At [facility] Start: 10-28-2012 End: 01-30-2023 Tobacco use and exposure Smokeless tobacco non-user [facility] Start: 10-17-2022 End: 01-15-2023 Alcohol intake Current non-drinker of alcohol (finding) [facility] Start: 1960 Sex Assigned At Not on file [facility] History of tobacco use Passive smoker [facility] Start: 01-31-2023 Alcohol intake Lifetime non-d laci (finding) [facility] Start: 10-17-2022 End: 01-15-2023 History of Social function [facility] Start: 10-17-2022 End: 01-15-2023 Tobacco use panel [facility] National Score (1-100), lower number is lower risk 85 [facility] Medical Equipment Procedure Code Equipment Code Equipment Origin al Text Equipment Identifier Dates See Instructions , BD UF 8mm 31 G (short) qs 1 month supply, # 200 EA, 3 Refill(s), [facility], 167, cm, 11/04/19 15:51:00 EST, Height, 116, kg, 11/04/19 15:51:00 EST, Dosing Weight Start: 11-04-2019 See Instructions , BD UF 8mm 31 G (short) qs 1 month supply, # 200 EA, 3 Refill(s), [facility], 167, cm, 11/04/19 15:51:00 EST, Height, 116, kg, 11/04/19 15:51:00 EST, Dosing Weight Start: 11-04-2019 Start: 09-13-2015 End: 01-30-2023 Clinical Notes 10-17-2022 to 02-14-2023 Telephone Encounter - Isaura Allen - 01/16/2023 10:50 AM EDTTelephone Encounter - Isaura Allen - 01/08/2023 11:37 AM EDTTelephone Encounter - Isaura Allen - 01/03/2023 8:24 AM EDT Note Date & Type Note Facility 02-14-2023 Note HNO ID: [id number] Author: Carmen Kimble PA-C Service: Orthopaedic Surgery Author Type: Physician Medical Physics Professor Type: Progress Notes Filed: 02/14/2023 8:18 AM [...] Prophylaxis/Anticoagulants 02/13/23 1300 vte pharmacologic prophylaxis contraindicated (tn,in) 02/13/23 1300 pneumatic compression stockings ([place], [place]) 02/13/23 1300 graduated compression stockings ([place]) 02/13/23 1300 activity - mobilize patient ([place], [place]) VTE Prophylaxis: VTE prophylaxis appropriate SIGNATURE: Carmen Kimble PA-C PATIENT NAME: Carlin Siddiqi DATE: February 14, 2023 TIME: 8:16 AM [facility] 02-13-2023 Note HNO ID: [id number] Author: Dany Alvarez APRN.GRAPHITE DISK ASSEMBLER Service: ? Author Type: Nurse Siding Installer Type: Anesthesia Procedure Notes Filed: 02/13/2023 8:21 AM Note Text: ANESTHESIOLOGY PROCEDURE NOTE Airway General Information Procedure Start Time/Medication Administration: 02/13/2023 7:51 AM Procedure End Time: 02/13/2023 7:51 AM Patient location during procedure: OR Timeout Performed Pre-procedure: timeout performed Consent Obtained: Yes Patient identity confirmed: arm band Staffing GRAPHITE DISK ASSEMBLER: Dany Alvarez APRN.GRAPHITE DISK ASSEMBLER Performed by: [place] Indications and Patient Condition [...] February 13, 2023 TIME: 8:17 AM CSN: [id number] [facility] 02-12-2023 Note HNO ID: [id number] Author: Gretta Hernandez RN Service: Nursing Author [...] 5325 mg per tablet PRN if needed lvnrhekohht-rkoppcjfp-ldxhdrig (TRELEGY ELLIPTA) 100-62.5-25 mcg inhalation powder Use [...] inpn DO NOT TAKE MORNING OF SURGERY [place]-3 Fatty Acids 500 mg cap DO NOT [...] directed. Bring copy of Living Will/Power of Pit And Auxiliaries Supervisor. Do not smoke or chew. If you [...] the Surgery Center. UPON ARRIVAL: Access to [facility] is located on [address] Economics Professor parking is available for your convenience from [...] The preoperative staff (more content not included)... [facility] 02-06-2023 Note HNO ID: [id number] Author: Ada Flores MD Service: ? Author Type: Physician Type: Progress Notes Filed: 02/06/2023 3:16 PM Note Text: Summary: MEDICAL, PULMONARY AND ENDO CLERANCES Medical: optimized Pulmonary: Doing very well on current treatment without need for rescue inhaler Endocrinology: 7.2 A1C by CBG monitor [facility] 01-31-2023 Note HNO ID: [id number] Author: Juan Villagomez PA-C Service: ? Author Type: Physician Medical Physics Professor Type: Progress Notes Filed: 02/02/2023 3:43 PM [...] back H/O cardiovascular stress test 01/23/2023 at [facility] Herpes zoster without mention of complication 01/15/2009 [...] DX W/COLLJ SPEC WHEN PFRMD 09/13/2006 repeat [id number] COLONOSCOPY FLX DX W/COLLJ SPEC WHEN PFRMD [...] twice daily as needed (pain). 5-325mg Yes cfzqrpfcsbu-qpvlrzble-kztsqtbe (TRELEGY ELLIPTA) 100-62.5-25 mcg inhalation powder Inhale [...] As needed per implanted glucose monitor Yes [place]-3 Fatty Acids 500 mg cap Take 1,000 mg by mouth twice daily. Yes lisinopril (ZESTRIL, PRINIVIL) 20 mg tablet Take 20 mg by mouth every morning. Yes atorvastat (more content not included)... [facility] 01-31-2023 Note HNO ID: [id number] Author: Juan Villagomez PA-C Service: ? Author Type: Physician Medical Physics Professor Type: Progress Notes Filed: 01/31/2023 10:34 AM [...] 5325 mg per tablet PRN if needed ylhrdphqwcn-rqsnbcrll-kgdbmlhg (TRELEGY ELLIPTA) 100-62.5-25 mcg inhalation powder Use [...] inpn DO NOT TAKE MORNING OF SURGERY [place]-3 Fatty Acids 500 mg cap DO NOT [...] instructions for the morning of your procedure. [facility] 01-31-2023 Note HNO ID: [id number] Author: Ada Flores MD Service: ? Author Type: Physician Type: Progress Notes Filed: 01/31/2023 10:34 AM Note Text: 02/13/23 L4/5 PLF - [place] 63 yo [place] man, non-smoker. PMHx of DM-2, insulin requiring, with neuropathy. HTN, HLP, DEION, asthma [facility] 01-16-2023 Miscellaneous Notes Patient notified our instructions state no fiber diet to decrease the amount of stool being made to allow a full clean out for procedure. Failure to be cleaned out could result in not being able to complete procedure. Patent aware and verbalized understanding. Would like to proceed with procedure. Isaura Allen Hydrostatic Tester Patient called in stating his diabetic doctor has an issue with no fiber - more protein diet leading up to colonoscopy due to sugar levels. Patient asking what to do Please advise Isaura Allne Hydrostatic Tester Patient notified There will be no interference Patient called in to inform Dr. Ambriz that patient is to have anesthesia for his shot for his back on 01/17/2023 and wasn't sure if this would interfere with colonoscopy at [facility] on 01/15/2023 Please advise Thank you Isaura Allen Hydrostatic Tester documented in this encounter [facility] 01-15-2023 Note HNO ID: [id number] Author: Lillian Olivarez RN Service: ? Author Type: Registered Nurse Type: Nursing Progress Note Filed: 01/15/2023 9:14 AM Note Text: Patient checked his blood glucose with Vish, result 205 [facility] 01-15-2023 Note HNO ID: [id number] Author: Lillian Olivarez RN Service: ? Author Type: Registered Nurse Type: Nursing Progress Note Filed: 01/15/2023 9:10 AM Note Text: Patient resting, noted to be passing small amounts of air rectally. [facility] 01-15-2023 Nurse Note Patient checked his blood [...] on left side. documented in this encounter [facility] 01-15-2023 History and physical note Images from [...] DX W/COLLJ SPEC WHEN PFRMD 09/13/06 repeat [id number] COLONOSCOPY FLX DX W/COLLJ SPEC WHEN PFRMD [...] at lunch, 30 units at supper. Insulin [place], Disposable, (PEN NEEDLES) 31 gauge x 1/4 ndle For insulin injection 3x daily. [place]-3 Fatty Acids 500 mg cap Take 1,000 [...] visit. ALLERGIES: Adhesive Tape (Rosins), [place] [Exenatide], [place], Grass Pollen, Penicillins, Sulfa (Sulfonamide Antibiotics), Thiazides, [...] entered by the nurse and reviewed by vt Nursing Notes: Dinorah Bourne LPN 10/17/2022 3:41 [...] patient was offered a surgery/procedure at a [facility] facility. I have counseled the patient regarding [...] which included preparing to see the patient, ksth-[id number] patient care, completing clinical documentation, obtaining and/or [...] TIME: 8:01 AM documented in this encounter [facility] 11-24-2022 Miscellaneous Notes Patient called and canceled his colonoscopy screening due to finances. documented in this encounter [facility] 10-17-2022 Note HNO ID: [id number] Author: Flash Echevarria PA-C Service: ? Author Type: Physician Medical Physics Professor Type: Progress Notes Filed: 10/17/2022 5:34 PM [...] DX W/COLLJ SPEC WHEN PFRMD 09/13/06 repeat [id number] COLONOSCOPY FLX DX W/COLLJ SPEC WHEN PFRMD [...] at lunch, 30 units at supper. Insulin [place], Disposable, (PEN NEEDLES) 31 gauge x 1/4 ndle For insulin injection 3x daily. [place]-3 Fatty Acids 500 mg cap Take 1,000 [...] visit. ALLERGIES: Adhesive Tape (Rosins), [place] [Exenatide], [place], Grass Pollen, Penicillins, Sulfa (Sulfonamide Antibiotics), Thiazides, [...] Paternal Grandfather REVIEW (more content not included)... [facility] 10-17-2022 History of Presen t illness Narrative [...] DX W/COLLJ SPEC WHEN PFRMD 09/13/06 repeat [id number] COLONOSCOPY FLX DX W/COLLJ SPEC WHEN PFRMD [...] at lunch, 30 units at supper. Insulin [place], Disposable, (PEN NEEDLES) 31 gauge x 1/4 ndle For insulin injection 3x daily. [place]-3 Fatty Acids 500 mg cap Take 1,000 [...] visit. ALLERGIES: Adhesive Tape (Rosins), [place] [Exenatide], [place], Grass Pollen, Penicillins, Sulfa (Sulfonamide Antibiotics), Thiazides, [...] entered by the nurse and reviewed by vt Nursing Notes: Dinorah Bourne LPN 10/17/2022 3:41 [...] patient was offered a surgery/procedure at a [facility] facility. I have counseled the patient regarding [...] which included preparing to see the patient, uwfo-uy-ohqq patient care, completing clinical documentation, obtaining and/or reviewing separately obtained history, performing a medically appropriate examination, counseling and educating the patient/family/caregiver, and ordering medications, tests, or procedures. Flash Echevarria PA-C documented in this encounter [facility] 10-17-2022 Nurse Note REVIEW OF SYSTEMS: General: [...] Dinorah Bourne LPN documented in this encounter [facility] Evaluation + Plan note No data available for this section [facility] Evaluation + Plan note Future Appointments Appointment Date:05/16/2022 10:30:00 AM Scheduled Provider:KACEY AUSTIN MD Location:[facility] Appointment Type:PM OV [facility] Diagnosis Encounter for screening for malignant neoplasm of colon- Primary Special screening for malignant neoplasms, colon Personal history of colonic polyps Family history of colon cancer Family history of malignant neoplasm of gastrointestinal tract [facility] No data available for this section [facility] Progress note No data available for this section [facility] Reason for referral (narrative)* Outpatient Procedure (Routine) - Closed Specialty Diagnoses / Procedures Referred By Contmarilyn t Referred To Contact [facility] Diagnoses Personal history of colonic polyps Family history of colon cancer Procedures COLONOSCOPY SCREENING COLONOSCOPY FLX DX W/COLLJ SPEC WHEN PFRMD Flash Echevarria PA-C [address] [place] [address] [facility] [address] [place] [address] Referral ID Status Reason Start Date Expiration Date V isits Requested Visits Authorized [id number] Closed Auto-Generate d Referral 10/17/2022 10/17/2023 1 1 [facility] for visit Narrative* Outpatient Procedure (Routine) - Closed Specialty Diagnoses / Procedures Referred By Anthony price Referred To Contact [facility] Diagnoses Personal history of colonic polyps Family history of colon cancer Procedures COLONOSCOPY SCREENING COLONOSCOPY FLX DX W/COLLJ SPEC WHEN PFRMD Flash Echevarria PA-C [address] [place] [address] [facility] [address] [place] [address] Referral ID Status Reason Start Date Expiration Date V isits Requested Visits Authorized [id number] Closed Auto-Generate d Referral 10/17/2022 10/17/2023 1 1 [facility] Summary Purpose Family History No Family History [...] Care Team (unrecognized sect ion and content) Loading Unit Operator Seating Relationship Specialty Start Date End Date Rj Chaidez MD PCP - General Family Medicine 04/03/13 Loading Unit Operator Seating Relationship Specialty Start Date End Date Rj Chaidez MD PCP - General Family Medicine 04/03/13 Loading Unit Operator Seating Relationship Specialty Start Date End Date Kacey Sagastume [address] [facility] [address] [place] [address] PCP - General Family Medicine 02/06/23 Loading Unit Operator Seating Relationship Specialty Start Date End Date Rj Chaidez MD PCP - General Family Medicine 04/03/13 02/05/23 Care Team (unrecognized sect ion and content) Care Team Personnel Name: RJ CHAIDEZ MD Member Role: Primary Care Physician Address: Address: [address] [place] [address] Care Team Related Persons Name: MICHAEL SIDDIQI Care Team Personnel Name: RJ CHAIDEZ MD Member Role: Primary Care Physician Address: Address: [address] [place] [address]- Care Team Related Persons Name: MICHAEL SIDDIQI Care Team Personnel Name: RJ CHAIDEZ MD Member Role: Primary Care Physician Address: Address: [address] [place] [address]- Care Team Related Persons Name: MICHAEL SIDDIQI Source Comments (unrecognize d section and content) In the event this informatio n is protected by the Federal Confidentiality of Alcohol and Drug Abuse Patient Records regulations: The Federal rules restrict any use of the information to criminally investigate or prosecute any alcohol or drug abuse patient.[facility] HospitalIn the event this information is protected by the Federal Confidentiality of Alcohol and Drug Abuse Patient Records regulations: The Federal rules restrict any use of the information to criminally investigate or prosecute any alcohol or drug abuse patient.[facility] HospitalIn the event this information is protected by the Federal Confidentiality of Alcohol and Drug Abuse Patient Records regulations: The Federal rules restrict any use of the information to criminally investigate or prosecute any alcohol or drug abuse patient.[facility] HospitalIn the event this information is protected by the Federal Confidentiality of Alcohol and Drug Abuse Patient Records regulations: The Federal rules restrict any use of the information to criminally investigate or prosecute any alcohol or drug abuse patient.[facility] HospitalIn the event this information is protected by the Federal Confidentiality of Alcohol and Drug Abuse Patient Records regulations: The Federal rules restrict any use of the information to criminally investigate or prosecute any alcohol or drug abuse patient.[facility] Reason for Visit (unrecogniz ed section and [...] MORSE[facility]ED Mr Surgery [address] [place] [address] Referral ID Status Reason Start Date Expiration Date Visits Re quested Visits Authorized [id number] 1 1 (unrecognized sect ion and content) No Status Records FoundNo Status Records FoundNo Status Records Found INFORMATION SOURCE (unrecogn ized section and content) DATE CREATED AUTHOR AUTHOR'S ORGANIZ ATION 02/19/2023 [facility]ter DATE CREATED AUTHOR AUTHOR'S ORGANIZ ATION 02/19/2023 [facility] FOR RECORDS PERTAINING TO PATIENTS WHO ARE [...] BE BASED ON THE PRIMARY CLINICAL RECORDS. [facility]. provides no warranty or guarantee of the accuracy or completeness of information in this document.
[2023-09-27 17:51] LABS: Absolute Lymphocyte Count 1.81 X10^3/uL (0.83-4.51); Absolute Neutrophil Count 3.5 X10^3/uL (2.0-7.7); Basophil# 0.06 X10^3/uL; Eosinophils% 3.3 % (0-5); Hematocrit 49.4 % (40-54); Hemoglobin 15.8 g/dL (13.0-16.5); Lymphocyte # 1.81 X10^3/ul (0.83-4.51); Lymphocyte % 29.6 % (19-41); Mean Corpuscular Hgb 29.9 pg (27.0-32.0); Mean Corpuscular Volume 93.6 fL (80-94); Monocyte# 0.51 X10^3/uL; Monocyte% 8.3 % (0-10); NRBC Flagged by Analyzer 0 % (0-5); Neutrophil # 3.51 X10^3/uL (2.7-7.7); Neutrophil % 57.5 % (47-70); Platelet Count 216 K/mm3 (150-450); RBC Distribution Width CV 12.4 % (11.6-14.6); RBC Distribution Width SD 42.7 fl (35.1-43.9); Red Blood Count 5.28 M/mm3 (4.6-6.2); White Blood Count 6.1 K/mm3 (4.4-11.0)
[2023-09-27 17:58] LABS: Color, Urine Yellow (Yellow); Glucose, Dipstick 1000 mg/dl (Normal); Ketone-Dipstick Negative (Negative); Leukocyte Esterase-Dipstick Negative /ul (Negative); Nitrite-Dipstick Negative (Negative); Occult Blood-Urine Negative /ul (Negative); Protein-Dipstick 15 mg/dl (Negative); Specific Gravity, Urine 1.015 (1.002-1.030); Urine Bilirubin Dipstick Negative (Negative); Urine Clarity Clear (Clear); Urine Urobilinogen Normal (Normal); Urine pH 6.5 (5.0 - 8.0)
[2023-09-27 18:03] LABS: Vitamin D,25 Hydroxy 70.4 ng/mL
[2023-09-27 18:25] LABS: ALB/GLOB Ratio 0.9 RATIO (0.9-2.4); AST(SGOT) 29 U/L (15-37); Alanine Aminotransfer ALT/SGPT 55 U/L (16-61); Albumin, Serum 3.6 g/dL (3.2-5.0); Alkaline Phosphatase 70 U/L (45-117); Anion Gap 6 (5-15); BUN 27 mg/dL (7-18); Calcium,Total 8.9 mg/dL (8.5-10.1); Chloride 111 mmol/L (98-107); Cholesterol 135 mg/dL (200); EST Glomerular Filtration Rate 50 mL/min (>60); Est Glom Filt Rate - Afr Amer 61 mL/min (>60); Globulin 3.8 g/dL (2.2-4.2); Glucose 105 mg/dL (74-106); High Density Lipoprotein 50 mg/dL; Phosphorus 3.6 mg/dL (2.5-4.9); Potassium 3.8 mmol/L (3.5-5.1); Protein, Total 7.4 g/dL (6.4-8.2); Sodium Level 142 mmol/L (136-145); Triglycerides 161 mg/dL; Very Low Density Lipoprotein 32 mg/dL (5-40)
[2023-09-27 18:53] LABS: Protein, Urine (Random) 18.2 mg/dL (<11.9); Protein:Creat Ratio 264 mg/g CRE (0-200)
[2023-09-28 09:37] LABS: PTHIN 31.5 pg/mL (18.4-80.1)
== END | disposition home or self-care (01) ==
LOC: MFPLAB 16:24
PROVIDERS: PCP Family Medicine; Visit Provider Family Medicine
DX: E11.59 Type 2 diabetes mellitus with other circulatory complications (principal); E11.22 Type 2 diabetes mellitus with diabetic chronic kidney disease; N18.30 Chronic kidney disease, stage 3 unspecified; E55.9 Vitamin D deficiency, unspecified
CPT/HCPCS: 36415; 80053; 80061; 81001; 82306; 82570; 83970; 84100; 84156; 84443; 85025

== ENCOUNTER → 2024-01-24 | Outpatient (CLI) | payer OTHER, SELFPAY ==
[2024-01-24 16:32] LABS: Bacteria 0 SEEN /hpf (None Seen); Mucous, Urine 0 SEEN /hpf (<or=2+); Red Blood Cells-Urine 0 SEEN /hpf (0-5); Squamous Epithelial Cells - UA 0 SEEN /hpf (0-5); White Blood Cells 0 SEEN /hpf (0-5)
[2024-01-24 17:34] LABS: Color, Urine Yellow (Yellow); Glucose, Dipstick 1000 mg/dl (Normal); Ketone-Dipstick Negative (Negative); Leukocyte Esterase-Dipstick Negative /ul (Negative); Nitrite-Dipstick Negative (Negative); Occult Blood-Urine Negative /ul (Negative); Protein-Dipstick 15 mg/dl (Negative); Specific Gravity, Urine 1.015 (1.002-1.030); Urine Bilirubin Dipstick Negative (Negative); Urine Clarity Clear (Clear); Urine Urobilinogen Normal (Normal)
[2024-01-24 17:37] LABS: Absolute Lymphocyte Count 1.71 X10^3/uL (0.83-4.51); Absolute Neutrophil Count 3.8 X10^3/uL (2.0-7.7); Basophil# 0.05 X10^3/uL; Basophil% 0.8 % (0-1); Eosinophil# 0.24 X10^3/uL; Eosinophils% 3.8 % (0-5); Hematocrit 47.4 % (40-54); Hemoglobin 15.7 g/dL (13.0-16.5); Lymphocyte # 1.71 X10^3/ul (0.83-4.51); Mean Corp Hgb Conc 33.1 g/dL (32-36); Mean Corpuscular Hgb 30.5 pg (27.0-32.0); Mean Corpuscular Volume 92.2 fL (80-94); Mean Platelet Vol. 8.8 fl (6.2-12.0); Monocyte# 0.49 X10^3/uL; Monocyte% 7.7 % (0-10); NRBC Flagged by Analyzer 0 % (0-5); Neutrophil # 3.83 X10^3/uL (2.7-7.7); Neutrophil % 60.4 % (47-70); Platelet Count 194 K/mm3 (150-450); RBC Distribution Width CV 12.3 % (11.6-14.6); Red Blood Count 5.14 M/mm3 (4.6-6.2); White Blood Count 6.3 K/mm3 (4.4-11.0)
[2024-01-24 17:47] LABS: Protein, Urine (Random) 16.5 mg/dL (<11.9); Protein:Creat Ratio 243 mg/g CRE (0-200)
[2024-01-24 18:00] LABS: AST(SGOT) 27 U/L (15-37); Alanine Aminotransfer ALT/SGPT 48 U/L (16-61); Albumin, Serum 3.8 g/dL (3.2-5.0); Alkaline Phosphatase 74 U/L (45-117); Anion Gap 6 (5-15); BUN 31 mg/dL (7-18); BUN/Creat Ratio 20.5 RATIO (10-20); Calcium,Total 9.5 mg/dL (8.5-10.1); Chloride 110 mmol/L (98-107); Cholesterol 150 mg/dL (200); Creatinine, Serum 1.51 mg/dL (0.70-1.30); EST Glomerular Filtration Rate 50 mL/min (>60); Est Glom Filt Rate - Afr Amer 60 mL/min (>60); Globulin 3.7 g/dL (2.2-4.2); Glucose 110 mg/dL (74-106); High Density Lipoprotein 52 mg/dL; Phosphorus 3.5 mg/dL (2.5-4.9); Potassium 3.6 mmol/L (3.5-5.1); Protein, Total 7.5 g/dL (6.4-8.2); Sodium Level 141 mmol/L (136-145); Triglycerides 181 mg/dL; Very Low Density Lipoprotein 36 mg/dL (5-40)
[2024-01-24 18:27] LABS: PTHIN 31.1 pg/mL (18.4-80.1)
== END | disposition home or self-care (01) ==
LOC: MTLAB 16:26
PROVIDERS: PCP Family Medicine; Referring Provider Family Medicine; Visit Provider Family Medicine
DX: E55.9 Vitamin D deficiency, unspecified (principal); E11.59 Type 2 diabetes mellitus with other circulatory complications; E11.22 Type 2 diabetes mellitus with diabetic chronic kidney disease; N18.30 Chronic kidney disease, stage 3 unspecified
CPT/HCPCS: 36415; 80053; 80061; 81001; 82306; 82570; 83970; 84100; 84156; 85025

== ENCOUNTER → 2024-02-05 | Outpatient (CLI) | payer OTHER, SELFPAY ==
--- NOTE | 2024-02-05 15:01 | US_ITS ---
STUDY: THYROID ULTRASOUND REASON FOR EXAM: Male, 64 years old. Nodule TECHNIQUE: Ultrasound evaluation of the thyroid was performed with real-time and static santana-scale imaging. COMPARISON: 01/23/2023. FINDINGS: RIGHT LOBE: The right lobe of the thyroid gland measures 4.4 x 1.3 x 2.1 cm. There is a heterogeneous echotexture. Small anechoic cyst in the caudal aspect of the right thyroid lobe measuring 0.6 x 0.47 x 0.54 cm. LEFT LOBE: The left lobe of the thyroid gland measures 3.9 x 1.0 x 1.6 cm. There is a homogeneous echotexture. There are no demonstrated solid, cystic or complex lesions. ISTHMUS: The isthmus measures 0.40 cm. . US/Thyroid IMPRESSION: 1. Limited exam due to patient body habitus. 2. Small anechoic cyst in the caudal aspect of the right thyroid lobe measuring 0.6 x 0.47 x 0.54 cm. This was not seen previously. TI-RADS points: 0. TI-RADS category: TR1. This nodule is benign and no FNA or follow-up is necessary. 3. Previously described small hypoechoic nodule and small hyperechoic nodule in the right thyroid lobe are not visualized in today''s exam. 4. No nodules or cysts in the left thyroid lobe and thyroid isthmus. Electronically Signed: Ellis Peoples MD at 16:13 EDT ,
== END | disposition home or self-care (01) ==
LOC: US 14:59
PROVIDERS: PCP Family Medicine; Referring Provider Family Medicine; Visit Provider Family Medicine
DX: E04.1 Nontoxic single thyroid nodule (principal)
CPT/HCPCS: 76536

== ENCOUNTER → 2024-07-15 | Outpatient (CLI) | payer OTHER, SELFPAY ==
[2024-07-15 17:24] LABS: Absolute Lymphocyte Count 1.92 X10^3/uL (0.83-4.51); Absolute Neutrophil Count 4.8 X10^3/uL (2.0-7.7); Basophil# 0.08 X10^3/uL; Eosinophil# 0.27 X10^3/uL; Eosinophils% 3.5 % (0-5); Hematocrit 47.6 % (40-54); Lymphocyte # 1.92 X10^3/ul (0.83-4.51); Lymphocyte % 24.9 % (19-41); Mean Corp Hgb Conc 33.6 g/dL (32-36); Mean Corpuscular Hgb 31.2 pg (27.0-32.0); Mean Corpuscular Volume 92.8 fL (80-94); Mean Platelet Vol. 8.7 fl (6.2-12.0); Monocyte# 0.66 X10^3/uL; Monocyte% 8.6 % (0-10); NRBC Flagged by Analyzer 0 % (0-5); Neutrophil # 4.76 X10^3/uL (2.7-7.7); Neutrophil % 61.7 % (47-70); Platelet Count 198 K/mm3 (150-450); RBC Distribution Width CV 12.2 % (11.6-14.6); RBC Distribution Width SD 42.1 fl (35.1-43.9); Red Blood Count 5.13 M/mm3 (4.6-6.2); White Blood Count 7.7 K/mm3 (4.4-11.0)
[2024-07-15 18:12] LABS: PTHIN 27.2 pg/mL (18.4-80.1)
[2024-07-15 18:17] LABS: Color, Urine Yellow (Yellow); Glucose, Dipstick 1000 mg/dl (Normal); Ketone-Dipstick Negative (Negative); Leukocyte Esterase-Dipstick Negative /ul (Negative); Nitrite-Dipstick Negative (Negative); Occult Blood-Urine 10 /ul (Negative); Protein-Dipstick 30 mg/dl (Negative); Urine Bilirubin Dipstick Negative (Negative); Urine Clarity Clear (Clear); Urine Urobilinogen Normal (Normal)
[2024-07-15 18:18] LABS: Vitamin D,25 Hydroxy 62.4 ng/mL
[2024-07-15 18:28] LABS: AST(SGOT) 19 U/L (15-37); Alanine Aminotransfer ALT/SGPT 37 U/L (16-61); Albumin, Serum 3.7 g/dL (3.2-5.0); Alkaline Phosphatase 68 U/L (45-117); Anion Gap 6 (5-15); BUN 31 mg/dL (7-18); BUN/Creat Ratio 22.8 RATIO (10-20); Calcium,Total 9.5 mg/dL (8.5-10.1); Chloride 110 mmol/L (98-107); Cholesterol 146 mg/dL (200); Creatinine, Serum 1.36 mg/dL (0.70-1.30); EST Glomerular Filtration Rate 56 mL/min (>60); Est Glom Filt Rate - Afr Amer 68 mL/min (>60); Globulin 3.6 g/dL (2.2-4.2); Glucose 95 mg/dL (74-106); High Density Lipoprotein 51 mg/dL; Potassium 3.8 mmol/L (3.5-5.1); Protein, Total 7.3 g/dL (6.4-8.2); Sodium Level 139 mmol/L (136-145); Triglycerides 144 mg/dL; Very Low Density Lipoprotein 29 mg/dL (5-40)
[2024-07-15 18:37] LABS: Protein, Urine (Random) 17.9 mg/dL (<11.9)
[2024-07-15 18:46] LABS: Protein, Urine (Random) 16.6 mg/dL (<11.9); Protein:Creat Ratio 203 mg/g CRE (0-200)
== END | disposition home or self-care (01) ==
LOC: LAB 16:33
PROVIDERS: PCP Family Medicine; Referring Provider Family Medicine; Visit Provider Internal Medicine Endocrinology, Diabetes & Metabolism
DX: E11.22 Type 2 diabetes mellitus with diabetic chronic kidney disease (principal); E11.69 Type 2 diabetes mellitus with other specified complication; N18.30 Chronic kidney disease, stage 3 unspecified; E55.9 Vitamin D deficiency, unspecified
CPT/HCPCS: 36415; 80053; 80061; 81002; 82306; 82570; 83970; 84100; 84156; 85025

== ENCOUNTER → 2024-10-08 | Outpatient (CLI) | payer OTHER, SELFPAY ==
[2024-10-08 18:54] LABS: PSA,Total - Annual Screen 4.97 ng/mL (0.00-4.00)
== END | disposition home or self-care (01) ==
LOC: MFPLAB 16:22
PROVIDERS: PCP Family Medicine; Referring Provider Family Medicine; Visit Provider Family Medicine
DX: Z12.5 Encounter for screening for malignant neoplasm of prostate (principal)
CPT/HCPCS: 36415; 84153; G0103

== ENCOUNTER → 2024-11-18 | Outpatient (CLI) | payer OTHER, SELFPAY ==
[2024-11-19 14:08] LABS: PSA, Free 1.47 ng/mL; PSA, Free % 28.9 % (.)
== END | disposition home or self-care (01) ==
LOC: LAB 08:17
PROVIDERS: PCP Family Medicine; Referring Provider Urology; Visit Provider Urology
DX: R97.20 Elevated prostate specific antigen [PSA] (principal)
CPT/HCPCS: 36415; 84153; 84154

== ENCOUNTER 2024-12-25 07:44 | Day surgery (SDC) | payer OTHER, SELFPAY ==
[2024-12-11 13:26] LABS: Absolute Lymphocyte Count 1.88 X10^3/uL (0.83-4.51); Absolute Neutrophil Count 4.8 X10^3/uL (2.0-7.7); Basophil# 0.06 X10^3/uL; Basophil% 0.8 % (0-1); Eosinophil# 0.17 X10^3/uL; Eosinophils% 2.3 % (0-5); Hematocrit 48.2 % (40-54); Hemoglobin 16.3 g/dL (13.0-16.5); Lymphocyte # 1.88 X10^3/ul (0.83-4.51); Mean Corp Hgb Conc 33.8 g/dL (32-36); Mean Corpuscular Hgb 31.1 pg (27.0-32.0); Mean Platelet Vol. 8.5 fl (6.2-12.0); Monocyte# 0.57 X10^3/uL; Monocyte% 7.6 % (0-10); NRBC Flagged by Analyzer 0 % (0-5); Neutrophil % 63.9 % (47-70); Platelet Count 196 K/mm3 (150-450); RBC Distribution Width CV 12.3 % (11.6-14.6); RBC Distribution Width SD 41.6 fl (35.1-43.9); Red Blood Count 5.24 M/mm3 (4.6-6.2); White Blood Count 7.5 K/mm3 (4.4-11.0)
[2024-12-11 14:07] LABS: Albumin, Serum 4.5 g/dL (3.4-4.8); Anion Gap 12 (5-15); BUN 24 mg/dL (4-19); BUN/Creat Ratio 18.7 RATIO (10-20); Calcium,Total 9.5 mg/dL (7.6-11.0); Carbon Dioxide 23.6 mmol/L (21.0-32.0); Chloride 105 mmol/L (98-108); Creatinine, Serum 1.28 mg/dL (0.70-1.20); EST Glomerular Filtration Rate 62 (>60); Glucose 108 mg/dL (70-99); Potassium 4.1 mmol/L (3.3-5.1); Sodium Level 140 mmol/L (133-145)
[2024-12-11 16:23] LABS: Hemoglobin A1c 7.1 % (<=5.6)
--- NOTE | 2024-12-12 09:58 | HP.PCM_ITS ---
History and Physical History and Physical Patient Name: Carlin SiddiqiDOB: 1960 From: MAYDA VEGA PA-C DATE OF PRE-OPERATIVE EXAM: 12/11/2024 DATE OF SURGERY: 12/25/2024 SCHEDULED PROCEDURE: Right shoulder arthroscopic rotator cuff repair and mini open biceps tenodesis. HISTORY OF PRESENT ILLNESS: Carlin Siddiqi presents with right shoulder pain and weakness following a work-related injury on 11/05/24. 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 Patient complains of significant loss of strength in the right arm, inability to reach overhead, and difficulty with daily activities such as brushing teeth. He notes that pain is worst at night when lying down. Carlin mentions noticing decreased ability to throw overhand for the past couple of years. He denies any significant shoulder problems prior to this injury, apart from a fall a few years ago that caused temporary pain. REVIEW OF SYSTEMS: Review Of Systems: Constitutional: Reports weight change, but denies anorexia, change in appetite, fever, difficulty sleeping. Cardiovasular: Denies chest pain, heart murmur, irregular heartbeat and peripheral vascular disease. Respiratory: Denies asthma, cough, pneumonia, sleep apnea, shortness of breath, tuberculosis and wheezing. Gastrointestinal: Denies constipation, diarrhea, heartburn, nausea, rectal itching, bloody stools and vomiting. Genitourinary: . (F Genital Sx) Denies incontinence. Musculoskeletal: Reports pain and weakness, but denies leg swelling and trouble walking. Skin: Denies Raynaud's, history of shingles and tattoo. Neurological: Reports numbness/tingling but denies ambulatory dysfunction, dizziness and tremor. Psychiatric: Denies anxiety, depression, insomnia, mental illness and stress. Hematologic/Lymphatic: Denies anemia, bleeding/bruising tendency and past transfusion. Reviewed, no changes. PAST MEDICAL HISTORY: Advance Care Plan: Other Directive, LIVING WILL Effective Date: 01/30/2022 Past Medical History: Medical Problems: Arthritis, High Blood Pressure, Diabetes, Asthma, Sleep Apnea, Hypercholesterolemia, seasonal allergies Acid Reflux - occasionally Kidney Disease/Renal Failure - Stage - III Accidents: LT Knee Injury - (08/24/2015) FALL BWC - (11/05/2024) right shoulder injury Surgical Hx: [place] Teeth Carpal Tunnel Release RT - (05/29/2013) DR DYER @ [facility] Left CTR 10-3-13 [facility] DR Dyer Knee Arthroscopy LT - (02/23/2016) Dr Vandana Stone @ [facility] L4-5 (bilateral) Transforaminal Epidural Steroid Injection - (02/28/2022) Dr Ale Rodriguez @ [facility] Lumbar Fusion - (02/2023) L4-5 Anesthesia Complications: None Assistive Devices: Glasses - READING, Cpap Reviewed, no changes. SOCIAL HISTORY: Social History: Marital: .Occupation: No[employer].Work Status: Currently Working.Hand Dominance: Right-handed. Personal Habits: Cigarette Use: Never Smoked Cigarettes.Smokeless Tobacco: Never Used Smokeless Tobacco.E-Cigarette Use: Never used.Alcohol: Denies use.Drug Use: Denies Use.Enjoy Exercising: Exercises 1-3 X/Week. Reviewed, no changes. VITALS: Ht: 67 Wt: 270lb Wt k.472 BMI: 42.3 BP: 126/78 Pulse: 78 Resp: 16 T: 97.7 T: 36.5C Pain Level: 6 O2SatR: 97 ALLERGIES: Sulfa Penicillin Doxycycline [place] MEDICATIONS: Oxycodone HCL 5 mg 1-2 tab by mouth every 6 hours, Aspir-81 81 mg 1 po qday, Multivitamins 1po qday, Atorvastatin Calcium 20 mg 1 tab by mouth every night at bedtime, Lisinopril 20 mg 1 by mouth every day, Vitamin D3 5000 Unit daily, Loratadine 10 mg 1 by mouth every day, Flonase Allergy Relief 50 mcg/Act as needed, Tylenol 8 Hour 650 mg prn, Tadalafil 20 mg 1 by mouth qdaily as needed, Omeprazole 20 mg 1 by mouth every day, Farxiga 10 mg 1 by mouth every day, Coq- 10 100 mg daily, Humulin R U-500 Kwikpen 500 Unit/ML as needed, Dulera 200-5 mcg/Act 2 puffs daily, Triamcinolone Acetonide 0.1 % as needed, Fiasp Flextouch 100 Unit/ML as needed PRE-OP EXAM: General appearance:NORMAL Other: Eyes: Conjunctivae and lids: NORMAL Pupils: ERR Ears, Nose, Mouth, and Throat: NORMAL Other: Inspection of lips, teeth and gums: NORMAL Other: Neck: Examination of neck: no masses noted. Respiratory: Assessment of respiratory effort: NORMAL Other: Auscultation of lungs: clear to auscultation no wheezes, rhonchi or rales. Cardiovascular: Auscultation of heart: regular rate and rhythm, no murmurs, gallops or rubs. Exam of carotid arteries: NORMAL Other: Gastrointestinal: Exam of abdomen: soft, nontender, nondistended bowel sounds present. Lymphatic: Palpation of nodes in neck: NORMAL Other: Palpation of nodes in Axillae: NORMAL Other: Neurological: see below Psychiatric: Orientation to time, place and person: NORMAL Other: Mood and affect: NORMAL Other: PHYSICAL EXAMINATION: General Appearance: Well-nourished, well developed in no acute distress Orientation: Oriented to person, place and time. Mood / Affect: Calm Gait: normal Coordination: normal Shoulder Exam (Bilateral) Inspection/Palpation UE (R/L): Bicipital groove tenderness right Active FE (R/L): 140/160 Passive FE (R/L): 160 bilaterally External Rotation at side (R/L): 30 respectively Internal Rotation (R/L): L5/L1 Cross Arm (R/L): neg / neg Empty Can: Positive/neg [place] Test (R/L): Positive/ neg [place]'s Test (R/L): Positive/ neg [place] Test (R/L): neg / neg Speeds (R/L): Positive/ neg Apprehension (R/L): neg /neg Belly press (R/L): Positive/neg Abduction (R/L): 5 / 5/5 ER(R/L): 5/ / 5/5 IR (R/L): / / 5/5 Biceps (R/L):/ / /5 Triceps (R/L):/ / 5/5 Intrinsics (R/L): / / /5 Sensation: Subjective normal median / ulnar / radial / axillary sensation bilaterally Vasculature: 2+ radial pulse bilaterally, BCR in fingertips. UE Skin (R/L): No rashes or lesions. Lymph UE (R/L): No axillary lymphadenopathy DTR UE (R/L): Biceps: (2+/2+); Triceps: (2+/2+) C-spine Flexion: 45 C-spine Extension: 45 C-spine Right Rotation: 70 C-spine Left Rotation: 70 C-Spine Tenderness: non-tender Spurling's Test (R/L): neg / neg IMAGING STUDIES: X-rays reviewed from our office right shoulder 11/11/24 Well-preserved glenohumeral joint space. AC joint arthrosis is noted. No acute bony injury identified. MRI reviewed from [place] 11/19/24 right shoulder See report for full details Massive rotator cuff tear with involvement of the supraspinatus and infraspinatus tendon. No severe muscle atrophy is noted. Subscapularis tendinosis and interstitial tearing. Biceps tendinosis and tenosynovitis Suspected muscle strain of the supra and infraspinatus muscle bellies Questionable adhesive capsulitis Questionable spinal glenoid notch cyst, 5 mm IMPRESSION: 1. Hypertension. 2. Type 2 diabetes. 3. Asthma. 4. Sleep apnea. 5. Hypercholesterolemia. 6. Acid reflux. 7. Stage III chronic kidney disease. 8. Sprain of the right shoulder. 9. Strain of the rotator cuff of the right shoulder. 10. Bicipital tendinitis of the right shoulder. 11. Obesity. PLAN: The surgeon did discuss and review all treatment options with the patient including surgical versus nonsurgical. At this time the patient does wish to proceed with the above-stated procedure. Potential risks benefits and complications of the procedure were discussed and reviewed with the patient including but not limited to , infection, nerve and blood vessel damage, persistent pain, numbness, tingling, paresthesias, blood clot, pulmonary embolism, in the requirement for possible further surgery. Patient expressed full understanding. Has no further questions for the doctor. Does agree to proceed with the above-stated procedure, and has signed the appropriate surgery consent form. Pain medications: Patient was educated to use Tylenol 1000 mg every 8 hours taking no more than 3000 mg in 24 hours, patient was then educated to use oxycodone as needed for pain control. DVT prophylaxis: We will plan to use aspirin 81 mg twice daily until follow-up appointment. We will avoid NSAIDs in this patient due to patient reported stage III chronic kidney disease. ___ I have re-examined the patient. There are no clinical changes since date of exam. ___ See progress notes for changes. ___ Dictated on admission Date: Time: Signature:
--- NOTE | 2024-12-18 09:55 | EKG12_ITS ---
Test Reason : PRE OP Blood Pressure : */* mmHG Vent. Rate : 90 BPM Atrial Rate : 90 BPM P-R Int : 126 ms QRS Dur : 118 ms QT Int : 358 ms P-R-T Axes : 39 14 41 degrees QTcB Int : 437 ms Normal sinus rhythm Incomplete right bundle branch block Borderline ECG Confirmed by ANNA GARCIA, SEAN ([id number]), editor managing newspaper FLASH OSPINA ([id number]) on 12/19/2024 7:01:18 AM Referred By: Justo Terry Confirmed By: SEAN CASTILLO MD
--- NOTE | 2024-12-18 16:35 | PAT.ANESEVAL ---
Pre-Assessment Diagnosis/Proposed Procedure Planned Operative Procedure(s): Right shoulder arthroscopic rotator cuff repair and mini open biceps tenodesis. 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 When Was Last Pacemaker Check QUESTION #4 FULL TEXT: You/Your Family Experience fever (hyperthermia) with Anesthesia Last Oral Intake Last Oral intake: Last Oral Intake NPO since Meds taken in AM with sips of water? 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 Female No 12/15/24 15:07 HX of Motion Sickness No 12/15/24 15:07 HX of N/V After Surgery No 12/15/24 15:07 Non-Smoker Yes 12/15/24 15:07 Duration of Surgery greater Yes 12/15/24 15:07 than 60 minutes Number of Risk Factors 2 12/15/24 15:07 PONV Score Moderate Risk 12/15/24 15:07 Height & Weight Height & Weight: Anesthesia: Height & Weight Height 5 ft 6 in 07/15/24 15:22 Respiratory Assessment Respiratory Assessment - reinforced steel placing supervisor: Respiratory Tract Infection Hx - reinforced steel 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 Has anyone observed you stop breathing during sleep? STOP Results Positive 12/15/24 15:07 QUESTION #5 FULL TEXT : Do you snore loudly (louder than talking or can be heard through closed doors)? 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 Specify any problems Hx of Preganancy in last 3 N/A 12/15/24 15:07 Months Nurse Filling Out Transfusion DSCHRIBER 12/15/24 15:07 & Questions: Date: 12/15/24 12/15/24 15:07 Time: 15:08 12/15/24 15:07 Patient unable to answer at this time (ie. confused, unrespo /Reproduction History /Reproductive History - reinforced steel placing supervisor: /Reproductive Hx- reinforced steel placing supervisor Hx Now No 12/15/24 15:07 Gestational Age (in weeks): EDC: Hx Hx Para Hx Section SAB No 12/15/24 15:07 [facility] Medical History (Updated 12/15/24 @ 15:14 by Sunitha Crowley) Wears glasses Insulin dependent diabetes mellitus History of renal disease Fatty liver High cholesterol Restless legs Dietary restriction Non-smoker CPAP (continuous positive airway pressure) dependence Shortness of breath on exertion History of pain when walking History of stress test Degenerative joint disease (DJD) of lumbar spine Low back pain GERD (gastroesophageal reflux disease) Neuropathy Asthma Arthritis HTN (hypertension) Home Medications ?Medication ?Instructions ?Recorded ?Last Taken ?Type aspirin 81 mg tablet,delayed 81 mg PO DAILY 04/01/20 Unknown History release (Adult Aspirin Regimen) atorvastatin 20 mg tablet 20 mg PO QHS 04/01/20 Unknown History multivitamin (Daily Multi-Vitamin 1 tab PO DAILY 04/01/20 Unknown History tablet) acetaminophen 500 mg tablet 1,000 mg PO TID 04/21/21 Unknown History (Tylenol Extra Strength) loratadine 10 mg tablet 10 mg PO DAILY 05/09/22 Unknown History pen needle, diabetic 31 gauge x #350 ea 05/01/23 Unknown Rx 5/16 (Comfort EZ Pen [place]) fluticasone propionate 50 2 spray intranasal DAILY PRN 10/15/23 Unknown History mcg/actuation nasal allergy symptoms spray,suspension lisinopril 20 mg tablet 20 mg PO DAILY 10/15/23 Unknown History tadalafil 10 mg tablet 20 mg PO DAILY PRN sexual activity 10/15/23 Unknown History insulin aspart 1 sliding scale dose subcut TID 04/04/24 Unknown Rx (niacinamide)(U-100) 100 unit/mL(3 #60 mL mL) subcutaneous pen (Fiasp FlexTouch U-100 Insulin) Farxiga 10 mg tablet 10 mg PO DAILY #90 tabs 07/10/24 Unknown Rx (dapagliflozin propanediol) insulin aspart U-100 100 unit/mL 20 unit (0.2 mL) subcut TID #60 mL 09/05/24 Unknown Rx (3 mL) subcutaneous pen (Novolog FlexPen U-100 Insulin aspart) Held on 12/15/24. Instructions: MD Ordered albuterol sulfate 90 mcg/actuation 2 inh inhalation Q6H PRN shortness 12/15/24 Unknown History aerosol inhaler of breath or wheezing cholecalciferol (vitamin D3) 125 125 mcg PO DAILY 12/15/24 Unknown History mcg (5,000 unit) tablet (Vitamin D3) coenzyme Q10 100 mg capsule (Co 100 mg PO DAILY 12/15/24 Unknown History Q-10) insulin regular hum U-500 conc 500 90 unit subcut TID PRN SLIDING 12/15/24 Unknown History unit/mL(3 mL) subcut pen (Humulin SCALE R U-500 (Conc) Insulin Kwikpen) mometasone-formoterol HFA 200 2 puff inhalation BID 12/15/24 Unknown History mcg-5 mcg/actuation aerosol inhaler (Dulera) omega-3 fatty acids 500 mg capsule 1,000 mg PO BID 12/15/24 Unknown History omeprazole 20 mg capsule,delayed 20 mg PO DAILY PRN GERD 12/15/24 Unknown History release triamcinolone acetonide 0.5 % 1 applic topical BID PRN SKIN 12/15/24 Unknown History topical ointment Allergy/AdvReac Type Severity Reaction Status Date / Time adhesive tape (plastic tape) Allergy Intermediate Rash Verified 12/15/24 14:58 doxycycline Allergy Intermediate Rash Verified 12/15/24 14:57 Penicillins Allergy Intermediate rash Verified 12/15/24 14:57 Sulfa (Sulfonamide Allergy Intermediate Rash Verified 12/15/24 14:57 Antibiotics) exenatide (From [place]) AdvReac Severe Nausea/Vom/ Verified 12/15/24 14:57 Diarrhea Tetracyclines AdvReac Severe Unknown Verified 12/15/24 14:57 Family History Father Arthritis Colon cancer Cancer Diabetes Myocardial infarction CAD (coronary artery disease) Heart disease COPD (chronic obstructive pulmonary disease) Mother Diabetes Heart disease CAD (coronary artery disease) Hypertension CVA (cerebral vascular accident) Surgical History (Updated 12/15/24 @ 15:14 by Sunitha Crowley) Hx of colonoscopy Hx of left knee surgery History of lumbar fusion History of carpal tunnel surgery of right wrist History of carpal tunnel surgery of left wrist Social History Smoking Status: Never smoker alcohol intake: never substance use type: does not use frequency: daily Audit: Pertinent Findings Pertinent Findings Stress test pertinent findings: January 23, 2023. Ejection fraction 58%. No areas of reversibility are noted to suggest ischemia. No previous infarct is noted. Recommendation Anesthesia Recommendation Anesthesia recommendation: F/U recommended (Only EKG I see is from 2012. He must have had an EKG in 2022 which prompted the stress test, however I cannot find it. Please verify and if necessary obtain.)
--- NOTE | 2024-12-19 11:01 | PAT.ANESEVAL ---
Pre-Assessment Diagnosis/Proposed Procedure Planned Operative Procedure(s): Right shoulder arthroscopic rotator cuff repair and mini open biceps tenodesis. Anesthesia History Anesthesia History - medical educator: Anesthesia History - medical educator Hx Hospitalization No 12/15/24 15:07 Any Problems With Anesthesia No 12/15/24 15:07 Cholinesterase deficiency No 12/15/24 15:07 You/Your Family Experience No 12/15/24 15:07 fever (hyperthermia) with Relationship Recent Exposure to Contagious Disease Does patient have nerve No 12/15/24 15:07 stimulator Patient instructed to have device shut off --Does patient have Pacemaker or ICD? When Was Last Pacemaker Check QUESTION #4 FULL TEXT: You/Your Family Experience fever (hyperthermia) with Anesthesia Last Oral Intake Last Oral intake: Last Oral Intake NPO since Meds taken in AM with sips of water? 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 - medical educator: PONV - medical educator Female No 12/15/24 15:07 HX of Motion Sickness No 12/15/24 15:07 HX of N/V After Surgery No 12/15/24 15:07 Non-Smoker Yes 12/15/24 15:07 Duration of Surgery greater Yes 12/15/24 15:07 than 60 minutes Number of Risk Factors 2 12/15/24 15:07 PONV Score Moderate Risk 12/15/24 15:07 Height & Weight Height & Weight: Anesthesia: Height & Weight Height 5 ft 6 in 07/15/24 15:22 Respiratory Assessment Respiratory Assessment - medical educator: Respiratory Tract Infection Hx - medical educator Hx Respiratory Tract Infection No 12/15/24 15:07 STOP Sleep Apnea STOP Sleep Apnea - medical educator: STOP Sleep Apnea - medical educator Hx Hypertension Yes: CONTROLLED WITH MED 12/15/24 15:07 Hx Sleep Apnea Yes 12/15/24 15:07 CPAP Yes 12/15/24 15:07 BIPAP No 12/15/24 15:07 Do you snore loudly (louder than talking or can be heard Do you often feel tired/ fatigued/ sleepy during daytime? Has anyone observed you stop breathing during sleep? STOP Results Positive 12/15/24 15:07 QUESTION #5 FULL TEXT : Do you snore loudly (louder than talking or can be heard through closed doors)? 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 History - medical educator: Tobacco Use History - medical educator Tobacco Use Smoking Status Never smoker 12/15/24 15:07 Hx Tobacco Use No 12/15/24 15:07 Years Smoking Packs Smoked per Day Smoking Cessation Date was within the last 15 years Hx Smoking Cessation Date Hx Smoking Cessation Counseling Hematologic Medial History Hematologic Hx - medical educator: Hematologic Medical Hx - documentation spec Hx of Blood Transfusion No 12/15/24 15:07 Hx of Transfusion in last 3 No 12/15/24 15:07 Months Date of Last Transfusion (if within last 3 months) Ever experience any problems No 12/15/24 15:07 with transfusion(s)? Specify any problems Hx of Preganancy in last 3 N/A 12/15/24 15:07 Months Nurse Filling Out Transfusion DSCHRIBER 12/15/24 15:07 & Questions: Date: 12/15/24 12/15/24 15:07 Time: 15:08 12/15/24 15:07 Patient unable to answer at this time (ie. confused, unrespo /Reproduction History /Reproductive History - medical educator: /Reproductive Hx- medical educator Hx Now No 12/15/24 15:07 Gestational Age (in weeks): EDC: Hx Hx Para Hx Section SAB No 12/15/24 15:07 [facility] Medical History (Updated 12/15/24 @ 15:14 by Sunitha Crowley) Wears glasses Insulin dependent diabetes mellitus History of renal disease Fatty liver High cholesterol Restless legs Dietary restriction Non-smoker CPAP (continuous positive airway pressure) dependence Shortness of breath on exertion History of pain when walking History of stress test Degenerative joint disease (DJD) of lumbar spine Low back pain GERD (gastroesophageal reflux disease) Neuropathy Asthma Arthritis HTN (hypertension) Home Medications ?Medication ?Instructions ?Recorded ?Last Taken ?Type aspirin 81 mg tablet,delayed 81 mg PO DAILY 04/01/20 Unknown History release (Adult Aspirin Regimen) atorvastatin 20 mg tablet 20 mg PO QHS 04/01/20 Unknown History multivitamin (Daily Multi-Vitamin 1 tab PO DAILY 04/01/20 Unknown History tablet) acetaminophen 500 mg tablet 1,000 mg PO TID 04/21/21 Unknown History (Tylenol Extra Strength) loratadine 10 mg tablet 10 mg PO DAILY 05/09/22 Unknown History pen needle, diabetic 31 gauge x #350 ea 05/01/23 Unknown Rx 5/16 (Comfort EZ Pen [place]) fluticasone propionate 50 2 spray intranasal DAILY PRN 10/15/23 Unknown History mcg/actuation nasal allergy symptoms spray,suspension lisinopril 20 mg tablet 20 mg PO DAILY 10/15/23 Unknown History tadalafil 10 mg tablet 20 mg PO DAILY PRN sexual activity 10/15/23 Unknown History insulin aspart 1 sliding scale dose subcut TID 04/04/24 Unknown Rx (niacinamide)(U-100) 100 unit/mL(3 #60 mL mL) subcutaneous pen (Fiasp FlexTouch U-100 Insulin) Farxiga 10 mg tablet 10 mg PO DAILY #90 tabs 07/10/24 Unknown Rx (dapagliflozin propanediol) insulin aspart U-100 100 unit/mL 20 unit (0.2 mL) subcut TID #60 mL 09/05/24 Unknown Rx (3 mL) subcutaneous pen (Novolog FlexPen U-100 Insulin aspart) Held on 12/15/24. Instructions: MD Ordered albuterol sulfate 90 mcg/actuation 2 inh inhalation Q6H PRN shortness 12/15/24 Unknown History aerosol inhaler of breath or wheezing cholecalciferol (vitamin D3) 125 125 mcg PO DAILY 12/15/24 Unknown History mcg (5,000 unit) tablet (Vitamin D3) coenzyme Q10 100 mg capsule (Co 100 mg PO DAILY 12/15/24 Unknown History Q-10) insulin regular hum U-500 conc 500 90 unit subcut TID PRN SLIDING 12/15/24 Unknown History unit/mL(3 mL) subcut pen (Humulin SCALE R U-500 (Conc) Insulin Kwikpen) mometasone-formoterol HFA 200 2 puff inhalation BID 12/15/24 Unknown History mcg-5 mcg/actuation aerosol inhaler (Dulera) omega-3 fatty acids 500 mg capsule 1,000 mg PO BID 12/15/24 Unknown History omeprazole 20 mg capsule,delayed 20 mg PO DAILY PRN GERD 12/15/24 Unknown History release triamcinolone acetonide 0.5 % 1 applic topical BID PRN SKIN 12/15/24 Unknown History topical ointment Allergy/AdvReac Type Severity Reaction Status Date / Time adhesive tape (plastic tape) Allergy Intermediate Rash Verified 12/15/24 14:58 doxycycline Allergy Intermediate Rash Verified 12/15/24 14:57 Penicillins Allergy Intermediate rash Verified 12/15/24 14:57 Sulfa (Sulfonamide Allergy Intermediate Rash Verified 12/15/24 14:57 Antibiotics) exenatide (From [place]) AdvReac Severe Nausea/Vom/ Verified 12/15/24 14:57 Diarrhea Tetracyclines AdvReac Severe Unknown Verified 12/15/24 14:57 Family History Father Arthritis Colon cancer Cancer Diabetes Myocardial infarction CAD (coronary artery disease) Heart disease COPD (chronic obstructive pulmonary disease) Mother Diabetes Heart disease CAD (coronary artery disease) Hypertension CVA (cerebral vascular accident) Surgical History (Updated 12/15/24 @ 15:14 by Sunitha Crowley) Hx of colonoscopy Hx of left knee surgery History of lumbar fusion History of carpal tunnel surgery of right wrist History of carpal tunnel surgery of left wrist Social History Smoking Status: Never smoker alcohol intake: never substance use type: does not use frequency: daily Audit: Pertinent Findings HISTORY of Pertinent Findings History of Pertinent Findings: Stress Test Pertinent Findings Stress test pertinent findings January 23, 2023. Ejection 12/18/24 16:38 fraction 58%. No areas of reversibility are noted to suggest ischemia. No previous infarct is noted. Pertinent Findings EKG Perinent findings: 12/18/2024. Normal sinus rhythm. 90 bpm. Incomplete right bundle branch block. Recommendation Anesthesia Recommendation Anesthesia recommendation: OPTIMIZED for anesthesia
[2024-12-25] VITALS (11 sets, daily range): BP systolic 125–184; BP diastolic 75–93; PULSE 75–92; RESP 14–18; TEMP 36.1–36.9; O2SAT 96–100; BMI 42.7
[2024-12-25] MEDS: 0.9% Normal Saline (1000mL) 1,000 ML 15 ML IV ×2 (08:32→13:05)
--- NOTE | 2024-12-25 08:54 | PCM.PRE.AN2 ---
ASA Classification* ASA Classification ASA Classification: 3 Assessment & Plan Anesthesia* Anesthesia Assessment Anesthesia Assessment: Discussed sedation and/or anesthesia options, risks, benefits, and alternatives with patient/parents/legal guardian/POA. Questions invited. The patient/parents/legal guardian/POA seems to understand and agrees to proceed with anesthesia plan. Reviewed the physical assessment, medical history, allergy history and patient home medications list prior to surgery/procedure/anesthetic and documented any changes. Performed airway and anesthesia risk assessments. Anesthesia Type Anesthesia Type: General and Block (Patient is consented for a interscalene block.) History Source History Obtained from:: Patient and Chart Anesthesia Focused Assessment* Temperature: 98.4 F Pulse Rate: 92 Blood Pressure: 184/93 Respiratory Rate: 18 Pulse Ox: 97 Oxygen Delivery Method: Room Air Airway Assessment Mouth opens: >3 cm Mallampati Score: IV Teeth Condition: Caps/Crowns (Patient has several caps. They are all tight.) Neck Range of motion (ROM): Limited ROM Focused Labs Anesthesia Preop lab: CBC WBC 7.5 K/mm3 (4.4-11.0) 12/11/24 12:58 12/11/24 RBC 5.24 M/mm3 (4.6-6.2) 12/11/24 12:58 12/11/24 Hgb 16.3 g/dL (13.0-16.5) 12/11/24 12:58 12/11/24 Hct 48.2 % (40-54) 12/11/24 12:58 12/11/24 Plt Count 196 K/mm3 (150-450) 12/11/24 12:58 12/11/24 CHEMISTRY Potassium 4.1 mmol/L (3.3-5.1) 12/11/24 12:58 12/11/24 Sodium 140 mmol/L (133-145) 12/11/24 12:58 12/11/24 Phosphorus 4.0 mg/dL (2.5-4.9) 07/15/24 16:56 07/15/24 BUN 24 mg/dL (4-19) H 12/11/24 12:58 12/11/24 Creatinine 1.28 mg/dL (0.70-1.20) H 12/11/24 12:58 12/11/24 Glucose 108 mg/dL (70-99) H 12/11/24 12:58 12/11/24 TSH 1.50 uIU/mL (0.358-3.74) 09/27/23 16:24 09/27/23 COAG Pre-Assessment Diagnosis/Proposed Procedure Planned Operative Procedure(s): Right shoulder arthroscopic rotator cuff repair and mini open biceps tenodesis. 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 When Was Last Pacemaker Check QUESTION #4 FULL TEXT: You/Your Family Experience fever (hyperthermia) with Anesthesia Last Oral Intake Last Oral intake: Last Oral Intake NPO since 06:00 12/25/24 08:29 Meds taken in AM with sips of Yes 12/25/24 08:29 water? 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: PONV - ball truing machine operator Female No 12/15/24 15:07 HX of Motion Sickness No 12/15/24 15:07 HX of N/V After Surgery No 12/15/24 15:07 Non-Smoker Yes 12/15/24 15:07 Duration of Surgery greater Yes 12/15/24 15:07 than 60 minutes Number of Risk Factors 2 12/15/24 15:07 PONV Score Moderate Risk 12/15/24 15:07 Height & Weight Height & Weight: Anesthesia: Height & Weight Height 5 ft 7 in 12/25/24 08:29 Weight: 124 kg 12/25/24 08:29 Body Mass Index (BMI) 42.7 12/25/24 08:29 Respiratory Assessment Respiratory Assessment - ball truing machine operator: Respiratory Tract Infection Hx - ball truing machine operator Hx Respiratory Tract Infection No 12/15/24 15:07 STOP Sleep Apnea STOP Sleep Apnea - ball truing machine operator: STOP Sleep Apnea - ball truing machine operator Hx Hypertension Yes: CONTROLLED WITH MED 12/15/24 15:07 Hx Sleep Apnea Yes 12/15/24 15:07 CPAP Yes 12/15/24 15:07 BIPAP No 12/15/24 15:07 Do you snore loudly (louder than talking or can be heard Do you often feel tired/ fatigued/ sleepy during daytime? Has anyone observed you stop breathing during sleep? STOP Results Positive 12/15/24 15:07 QUESTION #5 FULL TEXT : Do you snore loudly (louder than talking or can be heard through closed doors)? 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: Tobacco Use History - ball truing machine operator Tobacco Use Smoking Status Never smoker 12/15/24 15:07 Hx Tobacco Use No 12/15/24 15:07 Years Smoking Packs Smoked per Day Smoking Cessation Date was within the last 15 years Hx Smoking Cessation Date Hx Smoking Cessation Counseling Hematologic Medial History Hematologic Hx - ball truing machine operator: Hematologic Medical Hx - juvenile officer Hx of Blood Transfusion No 12/15/24 15:07 Hx of Transfusion in last 3 No 12/15/24 15:07 Months Date of Last Transfusion (if within last 3 months) Ever experience any problems No 12/15/24 15:07 with transfusion(s)? Specify any problems Hx of Preganancy in last 3 N/A 12/15/24 15:07 Months Nurse Filling Out Transfusion DSCHRIBER 12/15/24 15:07 & Questions: Date: 12/15/24 12/15/24 15:07 Time: 15:08 12/15/24 15:07 Patient unable to answer at this time (ie. 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: /Reproductive Hx- ball truing machine operator Hx Now No 12/15/24 15:07 Gestational Age (in weeks): EDC: Hx Hx Para Hx Section SAB No 12/15/24 15:07 Active Medications Active Medications: Current Medications Generic Name Dose Route Start Last Admin Trade Name Freq PRN Reason Stop Dose Admin Cefazolin Sodium 3 gm/ N/A 30 mls @ 600 mls/hr 12/25/24 10:05 IV 12/25/24 10:07 INTRAOP ONE Sodium Chloride 1,000 mls @ 15 mls/hr 12/25/24 08:30 12/25/24 08:32 IV 15 mls/hr .Q48H DYLON Administration PFSH Medical History Wears glasses Insulin dependent diabetes mellitus History of renal disease Fatty liver High cholesterol Restless legs Dietary restriction Non-smoker CPAP (continuous positive airway pressure) dependence Shortness of breath on exertion History of pain when walking History of stress test Degenerative joint disease (DJD) of lumbar spine Low back pain GERD (gastroesophageal reflux disease) Neuropathy Asthma Arthritis HTN (hypertension) Home Medications ?Medication ?Instructions ?Recorded ?Last Taken ?Type aspirin 81 mg tablet,delayed 81 mg PO DAILY 04/01/20 12/19/24 History release (Adult Aspirin Regimen) atorvastatin 20 mg tablet 20 mg PO QHS 04/01/20 Unknown History multivitamin (Daily Multi-Vitamin 1 tab PO DAILY 04/01/20 Unknown History tablet) acetaminophen 500 mg tablet 1,000 mg PO TID 04/21/21 Unknown History (Tylenol Extra Strength) loratadine 10 mg tablet 10 mg PO DAILY 05/09/22 Unknown History pen needle, diabetic 31 gauge x #350 ea 05/01/23 Unknown Rx 01/23 (Comfort EZ Pen [place]) fluticasone propionate 50 2 spray intranasal DAILY PRN 10/15/23 Unknown History mcg/actuation nasal allergy symptoms spray,suspension lisinopril 20 mg tablet 20 mg PO DAILY 10/15/23 12/25/24 06:00 History tadalafil 10 mg tablet 20 mg PO DAILY PRN sexual activity 10/15/23 Unknown History insulin aspart 1 sliding scale dose subcut TID 04/04/24 Unknown Rx (niacinamide)(U-100) 100 unit/mL(3 #60 mL mL) subcutaneous pen (Fiasp FlexTouch U-100 Insulin) Farxiga 10 mg tablet 10 mg PO DAILY #90 tabs 07/10/24 12/21/24 Rx (dapagliflozin propanediol) insulin aspart U-100 100 unit/mL 20 unit (0.2 mL) subcut TID #60 mL 09/05/24 Unknown Rx (3 mL) subcutaneous pen (Novolog FlexPen U-100 Insulin aspart) Held on 12/15/24. Instructions: MD Ordered albuterol sulfate 90 mcg/actuation 2 inh inhalation Q6H PRN shortness 12/15/24 Unknown History aerosol inhaler of breath or wheezing cholecalciferol (vitamin D3) 125 125 mcg PO DAILY 12/15/24 Unknown History mcg (5,000 unit) tablet (Vitamin D3) coenzyme Q10 100 mg capsule (Co 100 mg PO DAILY 12/15/24 12/19/24 History Q-10) insulin regular hum U-500 conc 500 90 unit subcut TID PRN SLIDING 12/15/24 Unknown History unit/mL(3 mL) subcut pen (Humulin SCALE R U-500 (Conc) Insulin Kwikpen) mometasone-formoterol HFA 200 2 puff inhalation BID 12/15/24 Unknown History mcg-5 mcg/actuation aerosol inhaler (Dulera) omega-3 fatty acids 500 mg capsule 1,000 mg PO BID 12/15/24 Unknown History omeprazole 20 mg capsule,delayed 20 mg PO DAILY PRN GERD 12/15/24 12/25/24 06:00 History release triamcinolone acetonide 0.5 % 1 applic topical BID PRN SKIN 12/15/24 Unknown History topical ointment Allergy/AdvReac Type Severity Reaction Status Date / Time adhesive tape (plastic tape) Allergy Intermediate Rash Verified 12/25/24 08:25 doxycycline Allergy Intermediate Rash Verified 12/25/24 08:25 Penicillins Allergy Intermediate rash Verified 12/25/24 08:25 Sulfa (Sulfonamide Allergy Intermediate Rash Verified 12/25/24 08:25 Antibiotics) exenatide (From [place]) AdvReac Severe Nausea/Vom/ Verified 12/25/24 08:25 Diarrhea Tetracyclines AdvReac Severe Unknown Verified 12/25/24 08:25 Family History Father Arthritis Colon cancer Cancer Diabetes Myocardial infarction CAD (coronary artery disease) Heart disease COPD (chronic obstructive pulmonary disease) Mother Diabetes Heart disease CAD (coronary artery disease) Hypertension CVA (cerebral vascular accident) Surgical History Hx of colonoscopy Hx of left knee surgery History of lumbar fusion History of carpal tunnel surgery of right wrist History of carpal tunnel surgery of left wrist Social History Smoking Status: Never smoker alcohol intake: never substance use type: does not use frequency: daily Review of Systems (Anesthesia) ROS Narrative System reviewed and no additional complaints, except as documented. Physical Exam Resp clear to auscultation bilaterally
[2024-12-25] MEDS: Cefazolin 3 GM in Syringe 15 ML IV (10:13)
[2024-12-25] MEDS: Epinephrine (1 mg/ml) 1 MG/ML VIAL (11:15)
[2024-12-25] MEDS: Bupiv/Epi 0.25% 30 ML Vial (11:19)
--- NOTE | 2024-12-25 12:39 | PCM.POST.ANE ---
Anesthesia: Postop Eval I Current Vital Signs Temperature: 97.4 F Pulse Rate: 75 Blood Pressure: 138/80 Respiratory Rate: 14 Pulse Ox: 99 Oxygen Delivery Method: Simple Mask Oxygen Flow Rate (L/min): 8 Assessment Airway patent: Yes Spontaneous unlabored respirations: Yes nausea: No Vomiting: No Anesthesia Complication: No Fluid Hydration Crystalloid volume administer (ml): 1,500 Total IV fluid infused: 1,500 Progress Note Anesthesia document: Postop Eval 1 completed: Yes
--- NOTE | 2024-12-25 12:57 | OP.PCM_ITS ---
Operative Report (Standard) Operative Information Date of Procedure: 12/25/24 Pre-Operative Diagnosis: 1. Massive right rotator cuff tear 2. Right shoulder long head of biceps tendinosis Post-Operative Diagnosis: 1. Massive right rotator cuff tear 2. Right shoulder long head of biceps tendinosis Surgery/Procedure Performed: Right shoulder arthroscopic rotator cuff repair and biceps tenodesis acid supervisor: Yes Tractor Operator Laser Leveling: Jacquie Granda Tasks completed by prosthetics assistant: Opening & closing and Implanting device Additional social service assistant?: No Type of Anesthesia: General/Regional RN Documented Start/Stop Times: Operation Date: 12/25/24 10:05 Case Time Into Pre-Op 12/25/24 08:27 Anesthesia Start 12/25/24 10:13 Into Room 12/25/24 10:13 Out of Pre-Op 12/25/24 10:13 Procedure Start 12/25/24 10:50 Procedure End 12/25/24 12:30 Anesthesia End 12/25/24 12:39 Into Recovery 12/25/24 12:39 Out of Room 12/25/24 12:39 Procedure Start Time: 10:50 Procedure Stop Time: 12:30 Select all DRAINS/GRAFTS/IMPLANTS that apply: Implanted device Implanted device details: Ar[employer]rex self punching bio composite swivel lock anchor x 3, fiber tack RC anchor x 2 Estimated Blood Loss: 10 cc Specimen collected: No Description of surgery: Patient was identified in the preoperative holding area by name, medical record number, and date of . The operative extremity was marked. All questions were answered to the patient satisfaction. Interscalene block was then administered by anesthesia staff. At time of his procedure, patient was brought to the operative suite and positioned supine on a standard operating table. General anesthesia was induced and endotracheal tube placed and secured. Patient was then placed in the lateral decubitus position with the right side up. He was held in place with a beanbag. All bony prominences were well- padded. An axillary roll was placed. We spun the bed 45 degrees. We then prepped and draped the right upper extremity in a normal, sterile orthopedic fashion. A timeout was then performed confirming the side, site, and operation to be performed. No concerns were voiced and we elected to proceed with surgery. 3 g Ancef was administered IV prior to incision by anesthesia staff. Right upper extremity was placed in arthroscopic traction with 15 pounds of traction force applied to the right arm throughout the arthroscopic portion of the case approximately 1-1/2 hours. Standard posterior portal was made 2 fingerbreadths inferior medial posterior border scapular spine. Blunt tipped trocar was used to puncture the glenohumeral joint. The joint was filled with normal saline with epinephrine. The arthroscope was then introduced. Capsulitis was noted. Fraying at the superior labrum was noted without obvious unstable biceps anchor. The intra-articular portion of biceps tendon was pristine. Subscapularis fraying was noted. Massive rotator cuff tear was noted with a bare footprint minus a small oil area of tendon stump remaining at the supraspinatus footprint. Glenohumeral cartilage was pristine. Given the size of tear elected to proceed with a biceps rerouting type tenodesis to reinforce our repair. I freed the coracohumeral ligament and biceps sheath in the intertubercular groove to mobilize the tendon laterally. I established an anterior superior lateral portal and a lateral portal for suture management. I then placed 2 Medial Row fiber tack anchors via percutaneous portal along the chondral margin of the humeral head approximate 1 cm apart. The anteriormost anchor was a knotless anchor and I used the repair suture of the knotless mechanism to perform a tenodesis of the biceps. The tendon was weaved with the FiberWire with a scorpion suture passer and then passed through the knotless mechanism reducing the biceps well to the anterior portion of the rotator cuff cable remnant. The remaining conjoint sutures from both medial row anchors were then passed sequentially through the musculotendinous junction of the supra and anterior portion of the infraspinatus. The conjoint sutures were then cut and a single limb was passed laterally through the eyelet of a swivel lock anchor. Sutures were tensioned and first posterior and then anterior lateral anchors were placed. There is excellent reapproximation and compression of the rotator cuff at its [place] footprint. The infraspinatus demonstrated a small area of not reduced tissue which was subsequently reduced with a inverted mattress fiber tape suture anteriorly an additional swivel lock anchor along the posterior margin of our double row repair. Sutures were cut flush with the anchor. I used the knotless mechanism of the anterior anchor to again reinforce our biceps tenodesis which was passed with a scorpion suture passer. Final images were obtained. There were no obvious dogears noted. Cuff was stable to rotation and probing. The subacromial space was thoroughly lavaged. Portal sites were closed after removal of instruments with [id number] 3-0 nylon suture. 4 sites were injected with 30 cc total quarter percent bupivacaine with epinephrine. Patient was repositioned supine and safely explained the operative suite. He was placed in UltraSling. He tolerated the procedure well without apparent complication. Need for skilled social service assistant: Jacquie Granda PA-C was critical to the outcome of the case. During the course of the procedure the physician social service assistant played a vital role. Her intimate knowledge of my steps in the procedure aided in safe and expedient completion of the procedure. The PA played a vital role in positioning particularly in obtaining the appropriate positioning. The PA was also vital in the retraction of soft tissues during the exposure and protecting vital structures. The PA was also vital and obtaining tendon reduction and assisting with hardware placement. She also played a vital role in closure and sling application with my direct supervision. Postoperative plan: Sling x 6 weeks. Passive range of motion for physical therapy to start in 2 weeks. Pendulums only x 2 weeks. Range of motion as tolerated to the wrist e lbow and hand. Ice to the operative shoulder. Oxycodone prescription provided. Tylenol scheduled. Restart home aspirin this evening. Follow-up in 2 weeks for suture removal. Surgical Findings: Massive rotator cuff tear. Mobile cuff tissue. Stable repair. Biceps tendinosis. Capsulitis. Complications Complications: No Admit VTE Documentation VTE Present on Admission: No VTE Mechan Device Prophylaxis: SCD's VTE Pharm Prophylaxis ordered?: Yes
[2024-12-25 13:42] LABS: Bedside Glucose 233 mg/dL (74-106)
--- NOTE | 2024-12-25 21:14 | PCM.POSTANE2 ---
Anesthesia Postop Eval I Sum Postop Eval Completion status Anesthesia document: Postop Eval 1 completed: Yes Anesthesia Postop Eval I Summary Anesthesia Postop Eval I Summary: Anesthesia Postop Eval I: Assessment Summary Airway patent Yes 12/25/24 21:14 Spontaneous unlabored Yes 12/25/24 21:14 respirations Mental status nausea No 12/25/24 21:14 Vomiting No 12/25/24 21:14 Anesthesia Postop Eval I: Fluid Summary Crystalloid volume administer 1,500 12/25/24 21:14 (ml) Colloids volume administered ( ml) Blood Product volume administered (ml) Total IV fluid infused 1,500 12/25/24 21:14 Anesthesia Postop Eval I: Summary Notes Anesthesia Complication No 12/25/24 21:14 Anesthesia Complication Comment: Post-operative progress note Anesthesia: Postop Eval II Evaluation Mental status: Awake and Calm Pain Level: 1 nausea: No Vomiting: No Complications Anesthesia Complication: No
== END 2024-12-25 14:31 | disposition home or self-care (01) ==
LOC: SDC 07:46 → AC 07:47
PROVIDERS: PCP Family Medicine; Referring Provider Student in an Organized Health Care Education/Training Program; Visit Provider Student in an Organized Health Care Education/Training Program
PROC: (CPT 29827; principal; 2024-12-25 09:45)
DX: S46.011A Strain of muscle(s) and tendon(s) of the rotator cuff of right shoulder, initial encounter (principal); Z68.41 Body mass index [BMI] 40.0-44.9, adult; E11.22 Type 2 diabetes mellitus with diabetic chronic kidney disease; Z79.4 Long term (current) use of insulin; N18.30 Chronic kidney disease, stage 3 unspecified; M75.21 Bicipital tendinitis, right shoulder; X50.0XXA Overexertion from strenuous movement or load, initial encounter; Y99.0 Civilian activity done for income or pay; I12.9 Hypertensive chronic kidney disease with stage 1 through stage 4 chronic kidney disease, or unspecified chronic kidney disease; M19.90 Unspecified osteoarthritis, unspecified site; J45.909 Unspecified asthma, uncomplicated; E78.00 Pure hypercholesterolemia, unspecified; K21.9 Gastro-esophageal reflux disease without esophagitis; G47.30 Sleep apnea, unspecified; E66.9 Obesity, unspecified; Z79.84 Long term (current) use of oral hypoglycemic drugs; Z79.82 Long term (current) use of aspirin; Z79.899 Other long term (current) drug therapy
CPT/HCPCS: 29827; 29828; 01630; 36415; 80048; 82040; 82962; 83036; 85025; 93005; C1713; J2405

== ENCOUNTER → 2025-01-13 | Outpatient (CLI) | payer OTHER, SELFPAY ==
[2025-01-13 17:51] LABS: Absolute Lymphocyte Count 2.11 X10^3/uL (0.83-4.51); Absolute Neutrophil Count 3.4 X10^3/uL (2.0-7.7); Basophil# 0.08 X10^3/uL; Basophil% 1.2 % (0-1); Eosinophil# 0.48 X10^3/uL; Eosinophils% 7.2 % (0-5); Hematocrit 44.9 % (40-54); Hemoglobin 14.8 g/dL (13.0-16.5); Lymphocyte # 2.11 X10^3/ul (0.83-4.51); Lymphocyte % 31.8 % (19-41); Mean Corpuscular Hgb 31.2 pg (27.0-32.0); Mean Corpuscular Volume 94.5 fL (80-94); Mean Platelet Vol. 8.6 fl (6.2-12.0); Monocyte# 0.53 X10^3/uL; NRBC Flagged by Analyzer 0 % (0-5); Neutrophil # 3.43 X10^3/uL (2.7-7.7); Neutrophil % 51.6 % (47-70); Platelet Count 231 K/mm3 (150-450); RBC Distribution Width CV 12.3 % (11.6-14.6); RBC Distribution Width SD 42.5 fl (35.1-43.9); Red Blood Count 4.75 M/mm3 (4.6-6.2); White Blood Count 6.6 K/mm3 (4.4-11.0)
[2025-01-13 18:52] LABS: PTHIN 25 pg/mL (11-61)
[2025-01-13 19:21] LABS: ALB/GLOB Ratio 1.4 RATIO (0.9-2.4); AST(SGOT) 27 U/L (<=37); Alanine Aminotransfer ALT/SGPT 40 U/L (<=46); Albumin, Serum 4.1 g/dL (3.4-4.8); Alkaline Phosphatase 73 U/L (40-129); Anion Gap 11 (5-15); BUN 21 mg/dL (4-19); BUN/Creat Ratio 16.7 RATIO (10-20); Calcium,Total 9.5 mg/dL (7.6-11.0); Carbon Dioxide 23.2 mmol/L (21.0-32.0); Chloride 107 mmol/L (98-108); Creatinine, Serum 1.26 mg/dL (0.70-1.20); EST Glomerular Filtration Rate 63 (>60); Globulin 2.9 g/dL (2.2-4.2); Glucose 115 mg/dL (70-99); Potassium 3.6 mmol/L (3.3-5.1); Sodium Level 141 mmol/L (133-145); Total Bilirubin 0.25 mg/dL (0.00-1.30); Vitamin D,25 Hydroxy 47.1 ng/mL (30-100)
[2025-01-13 19:56] LABS: Cholesterol 146 mg/dL (<=200); High Density Lipoprotein 43 mg/dL; Low Density Lipoprotein Calc. 51 mg/dL; Triglycerides 261 mg/dL; Very Low Density Lipoprotein 52 mg/dL (5-40); cholesterol:hdl ratio screen 3.37
[2025-01-13 21:55] LABS: Protein:Creat Ratio 182 mg/g CRE (0-200)
== END | disposition home or self-care (01) ==
LOC: MFPLAB 16:24
PROVIDERS: PCP Family Medicine; Referring Provider Family Medicine; Visit Provider Family Medicine
DX: E11.59 Type 2 diabetes mellitus with other circulatory complications (principal); E11.22 Type 2 diabetes mellitus with diabetic chronic kidney disease; N18.30 Chronic kidney disease, stage 3 unspecified
CPT/HCPCS: 36415; 80053; 80061; 82306; 82570; 83970; 84156; 85025

== ENCOUNTER → 2025-05-19 | Outpatient (CLI) | payer OTHER, SELFPAY ==
[2025-05-19 09:58] LABS: Mucous, Urine 0 SEEN /hpf (<or=2+); Red Blood Cells-Urine 0 SEEN /hpf (0-5); Squamous Epithelial Cells - UA 0 SEEN /hpf (0-5)
[2025-05-19 13:10] LABS: Color, Urine Yellow (Yellow); Glucose, Dipstick 1000 mg/dl (Normal); Ketone-Dipstick Negative (Negative); Leukocyte Esterase-Dipstick Negative /ul (Negative); Nitrite-Dipstick Negative (Negative); Occult Blood-Urine Negative /ul (Negative); Protein-Dipstick 30 mg/dl (Negative); Specific Gravity, Urine 1.010 (1.002-1.030); Urine Bilirubin Dipstick Negative (Negative)
[2025-05-19 13:16] LABS: Hematocrit 45.9 % (40-54); Hemoglobin 15.3 g/dL (13.0-16.5); Immature Granulocytes Count 0.010 X10^3/uL (0.0-0.0); Mean Corp Hgb Conc 33.3 g/dL (32-36); Mean Corpuscular Volume 94.1 fL (80-94); Mean Platelet Vol. 8.7 fl (6.2-12.0); NRBC Flagged by Analyzer 0 % (0-5); Platelet Count 197 K/mm3 (150-450); RBC Distribution Width CV 12.2 % (11.6-14.6); RBC Distribution Width SD 42.6 fl (35.1-43.9); Red Blood Count 4.88 M/mm3 (4.6-6.2); White Blood Count 5.0 K/mm3 (4.4-11.0)
[2025-05-19 13:40] LABS: PTHIN 21 pg/mL (11-61)
[2025-05-19 13:41] LABS: AST(SGOT) 29 U/L (<=37); Alanine Aminotransfer ALT/SGPT 44 U/L (<=46); Albumin, Serum 4.3 g/dL (3.4-4.8); Alkaline Phosphatase 57 U/L (40-129); Anion Gap 11 (5-15); BUN 25 mg/dL (4-19); BUN/Creat Ratio 19.2 RATIO (10-20); Calcium,Total 10.0 mg/dL (7.6-11.0); Carbon Dioxide 23.7 mmol/L (21.0-32.0); Chloride 106 mmol/L (98-108); Cholesterol 145 mg/dL (<=200); Globulin 2.7 g/dL (2.2-4.2); Glucose 143 mg/dL (70-99); Low Density Lipoprotein Calc. 64 mg/dL; Potassium 4.1 mmol/L (3.3-5.1); Triglycerides 141 mg/dL; Very Low Density Lipoprotein 28 mg/dL (5-40); cholesterol:hdl ratio screen 2.73
[2025-05-19 15:44] LABS: Vitamin D,25 Hydroxy 51.7 ng/mL (30-100)
[2025-05-19 17:58] LABS: Creatinine, Urine (random) 62.60 mg/dL (39.00-259.00); Protein, Urine (Random) 9.8 mg/dL (0.0-12.0); Protein:Creat Ratio 157 mg/g CRE (0-200)
== END | disposition home or self-care (01) ==
LOC: MFPLAB 09:55
PROVIDERS: PCP Family Medicine; Referring Provider Family Medicine; Visit Provider Family Medicine
DX: E11.69 Type 2 diabetes mellitus with other specified complication (principal); E11.59 Type 2 diabetes mellitus with other circulatory complications; E11.22 Type 2 diabetes mellitus with diabetic chronic kidney disease; N18.30 Chronic kidney disease, stage 3 unspecified
CPT/HCPCS: 36415; 80053; 80061; 81001; 82306; 82570; 83970; 84156; 85025

== ENCOUNTER → 2025-05-26 | Outpatient (CLI) | payer MEDICARE, SELFPAY ==
--- NOTE | 2025-05-26 07:16 | US_ITS ---
PROCEDURE: THYROID 05/26/2025 REASON FOR EXAM: NODULE TECHNIQUE: Procedure Code: USTHY Modality: US Procedure: THYROID COMPARISON: Previous exam dated February 05, 2024 FINDINGS: Right thyroid lobe size: 5 x 2.1 x 2.5 cm Left thyroid lobe size: 2.8 x 1.3 x 1.2 cm Isthmus: 0.4 cm Background parenchymal echotexture is heterogeneous echo architecture Nodules: 1. Lobe: Right, Location: Mid, Size: 0.3 cm, Stability: New Composition: Cystic or mostly cystic (+0) Echogenicity: Anechoic (+0) Margin: Smooth (+0) Shape: Wider than tall (+0) Echogenic Foci: None (+0) TI-RADS: 1 Cystic nodule noted previously in the inferior lobe of the right thyroid gland has resolved. US/Thyroid IMPRESSION: Heterogeneous thyroid gland with no solid nodule. 3 previously described cysti c nodule in the right inferior thyroid lobe has resolved. A new tiny 3 mm nonspecific cystic nodule is seen in the right midgl and. TI-RADS 1. No suspicious nodule to recommend follow-up. Reading Location: [id number]
--- OUTSIDE RECORDS SUMMARY | 2025-05-26 07:26 | XMS RPT_ITS | CCD ---
Author Organization [facility] Care Team Providers Care Chair Inspector Name Role Phone RJ CHAIDEZ MD Primary Care Physician Dr. Rj Chaidez Primary Care Provider Dr. Rj Chaidez Referring Provider Dr. Chris Booker Attending Provider Dr. Rj Chaidez Primary Care Provider Dr. Rj Chaidez Referring Provider [phone] Chris Booker Attending Provider Rj Chaidez MD Primary Care Provider [phone] DR NIK LEGER DO Attending Dwight CHAIDEZ MD, RJ Primary Care Unavailable DM GARCIA, RJ Primary Care Unavailable GRACIELA DEANNA DALEY Attending Sun CHAIDEZ MD, RJ Primary Care Unavailable BEREKET MENDEZ MD Attending Unavailable DM GARCIA, RJ [facility] Care Unavailable GEOVANNA GARCIA., KACEY Guzman Attending Sun CHAIDEZ MD, RJ Primary Care Sun AUSTIN MD., KACEY Guzman Attending Sun CHAIDEZ MD, RJ Primary Care Unavailable EDIE CHRIS DO Attending Unavailable DR NIK LEGER DO Attending Dwight CHAIDEZ MD, RJ Primary Care Unavailable Dr. Rj Chaidez Primary Care Provider Dr. Rj Chaidez Referring Provider Dr. Chris Booker Attending Provider Dr. Kacey Navarro Primary Care Provider Dr. Kacey Navarro Referring Provider Dr. Kacey Navarro Other Provider Dr. Prakash Ortega Attending Provider Kacey Navarro Primary Care Provider [phone] RJ CHAIDEZ Primary Care Unavailable NIK LEGER Admitting Unavailable NIK LEGER Attending Unavailable RJ CHAIDEZ Primary Care Unavailable KACEY NAVARRO Primary Care UnavailJUAN Mitchell Attending Unavailable RJ CHAIDEZ Primary Care Unavailable SANDY KESSLER Referring Unavailable VLAD KAUR Referring Unavailable RJ CHAIDEZ Primary Care Unavailable SANDY KESSLER Attending Unavailable Dr. Rj Chaidez Referring Provider Unavailable Dr. Chris Booker Attending Provider Dr. Kacey Navarro Primary Care Provider Dm GARCIA, Rj Winston Primary Care Provider Dr. Rj Chaidez Referring Provider Unavailable Dr. Chris Booker Attending Provider [phone] Kacey Navarro Primary Care Provider Dr. Kacey Navarro Primary Care Provider Dr. Kacey Navarro Referring Provider Dr. Chris Booker Attending Provider [phone] Kacey Navarro MD Primary Care Provider [phone] Dr. Kacey Navarro MD Attending Provider [phone] Dr. Kacey Navarro MD Referring Provider [phone] Dr. Mauricio Morales MD Attending Provider Dr. Mauricio Morales MD Referring Provider Dr. Prakash Ortega MD Attending Provider Dr. Justo Terry DO Referring Provider Dr. Justo Terry DO Attending Provider Dr. Chris Booker MD Attending Provider JACQUIE ROMERO PA-C Attending Unavailable RJ CHAIDEZ MD Primary Care Unavailable JACQUIE ROMERO PA-C Attending Unavailable PHYSICIAN, NOT RECORDED Primary Care Unavaila ble Kacey Navarro Attending Unavailable Schinner, Kacey E Referring Unavailable Schinner, Kacey E Primary Care Unavailable Schinner, Kacey E Primary Care Unavailable SchinKacey ridley E Attending Unavailable Schinkeyana, Kacey E Referring Unavailable SchinKacey ridley E Attending Unavailable Schinner, Kacey E Referring Unavailable Schinner, Kacey E Primary Care Unavailable Schinner, Kacey E Attending Unavailable Schinner, Kacey E Referring Unavailable Schinner, Kacey E Primary Care Unavailable Sang Cason Attending Unavailable Schinner, Kacey E Primary Care Unavailable Chris Booker Attending Unavailable Schinner, Kacey E Referring Unavailable Schinner, Kacey E Primary Care Unavailable Chris Booker Attending Unavailable Schinner, Kacey E Referring Unavailable Schinner, Kacey E Primary Care Unavailable Prakash Ortega Attending Unavailable Justo Terry Referring Unavailable Schinner, Kacey E Primary Care Unavailable Schinkeyana, Kacey E Attending Unavailable Schinkeyana, Kacey E Referring Unavailable Schinner, Kacey E Primary Care Unavailable Schinkeyana, Kacey E Primary Care Unavailable SchKacey orozco E Attending Unavailable Melanie, Kacey E Referring Unavailable Chris Booker Attending Unavailable Schernesto, Kacey Celis Referring Unavailable Schinkeyana, Kacey E Primary Care Unavailable Schernesto, Kacey E Primary Care Unavailable Mauricio Morales Attending Unavailable Mauricio Morales Referring Unavailable Schernesto, Kacey E Primary Care Unavailable Justo Terry Attending Unavailable Justo Terry Referring Unavailable SchKacey orozco E Attending Unavailable Schernesto, Kacey E Primary Care Unavailable Allergies Allergy Classification Reported Allergen(s) Allergy Type Date of Onset Reaction(s) Facility (17 sources) Doxycycline; Translations: [doxycycline] Drug Allergy 5 [facility] (6 sources) Penicillin; Translations: [penicillin] Drug Allergy [facility] (6 sources) Sulfonamides (Antibiotic); Translations: [sulfa drugs] Drug allergy [facility] (10 sources) fentaNYL Drug Allergy 2 [facility] (20 sources) Penicillins; Translations: [PENICILLINS] Allergy to substance 5 [facility] Work Phone: (11 sources) Sulfur; Translations: [sulfur] Drug Allergy 2 [facility] (14 sources) Tetracyclines; Translations: [Tetracyclines] Propensity to adverse reactions 2 Unknown [facility] (14 sources) exenatide; Translations: [exenatide] Drug Allergy 6 Nausea (finding), GI Upset [facility] (7 sources) Adhesive Tape; Translations: [ADHESIVE TAPE (ROSINS)] Propensity to adverse reactions to substance 4 Rash, Itching [facility] (7 sources) Grass pollen; Translations: [GRASS POLLEN] Drug Allergy 2 Other: See Comments [facility] Work Phone: (7 sources) Sulfonamides (Antibiotic); Translations: [SULFA (SULFONAMIDE ANTIBIOTICS)] Propensity to adverse reactions 5 [facility] Work Phone: (7 sources) Thiazides; Translations: [THIAZIDES] Drug Allergy 5 [facility] Work Phone: (7 sources) Tree; Translations: [TREES] Allergy to substance 2 Other: See Comments [facility] Work Phone: (7 sources) [place]; Translations: [GOLDENROD] Allergy to substance 2 Other: See Comments [facility] Work Phone: (4 sources) Adhesive Tape; Translations: [adhesive tape] Allergy to substance 5 [facility] (3 sources) Sulfonamides (Antibiotic) Allergy to substance 5 [facility] (1 source) Doxycycline Drug Allergy 5 [facility] (1 source) exenatide Drug Allergy 5 [facility] (1 source) fentaNYL Drug Allergy 4 [facility] (1 source) Sulfonamides (Antibiotic) Drug allergy (disorder) 5 [facility] Rep[facility] Medications Current Medications Medication Drug Class(es) Dates Sig (Normalized) Sig (Original) acetaminophen 500 mg oral tablet (13 sources) Start: 04-21-2021 take 2 tablets by mouth three times daily Acetaminophen (Tylenol Extra Strength) 500 mg tablet Active 1000 mg PO THREE TIMES A DAY April 21, 2021 12:00am Start: 04-21-2021 take 1 tablet by yan th every six hours as needed Acetaminophen (Tylenol Extra Strength) 500 mg tablet Active 500 mg PO EVERY 6 HOURS as needed April 21, 2021 12:00am [id number] 200 actuat albuterol 0.09 mg/actuat metered dose inhaler (8 sources) beta2-Adrenergic Agonist Start: 12-15-2024 Albut liana Sulfate 90 mcg/actuation HFA aerosol inhaler Active 2 NMA INHALATION EVERY 6 HOURS as needed for shortness of breath or wheezing December 15, 2024 12:00am Start: 09-15-2019 albuterol HFA (PROVENTIL HFA, VENTOLIN HFA) 90 mcg/actuation inhaler Inhale 1 Puff as instructed as needed. 0 09/15/2019 Active Comment on above: Inhale 1 Puff as ins tructed as needed. aspirin 81 mg delayed release oral tablet (20 sources) Platelet Aggregation Inhibitor, Nonsteroidal Anti-inflammatory Drug Start: 07-23-2019 aspirin 81 mg oral delayed release tablet Dose : 81 mg = 1 tab(s), Oral, Daily, 0 Refill(s) Start Date: 07/23/19 Status: Ordered Start: 09-23-2010 End: 02-14-2023 take 1 tablet by mouth once daily Aspirin (Adult Aspirin Regimen) 81 mg tablet,delayed release (DR/EC) Active 81 mg PO DAILY April 01, 2020 12:00am Comment on above: Take one(1) tablet d aily. Take 81 mg by mouth once daily. DO NOT crush., to hold [address] Leger, to check with Dr Navarro atorvastatin 20 mg oral tablet (20 sources) HMG-CoA Reductase Inhibitor Start: 07-23-20 take 1 tablet by mouth at bedtime Atorvastatin 20 mg tablet Active 20 mg PO AT BEDTIME April 01, 2020 12:00am Comment on above: Take 20 mg by mouth once daily. Take 20 mg by mouth daily at bedtime. Basaglar 100 unit(s)/mL 3 mL KwikPen (1 source) Start: 07-23-20 inject 1 dose by subcutaneous injection twice daily Basaglar 100 unit(s)/mL 3 mL KwikPen Dose : 45 unit(s) =, Subcutaneous, BID, 0 Refill(s) Start Date: 07/23/19 Status: Ordered Blood-Glucose Sensor (Dexcom G6 Sensor) device (13 sources) Start: 04-01-20 Blood-Glucose Sensor (Dexcom G6 Sensor) device Active 0 .ROUTE .MEDSUPPLY April 01, 2020 4:12pm As directed Start: 04-01-2020 End: 05-01-2023 Blood-Glucose Sensor (Dexcom G6 Sensor) device Discontinued 0 .ROUTE .MEDSUPPLY March 31, 2020 11:00pm May 01, 2023 1:54pm As directed Start: 04-01-2020 End: 05-01-2023 Blood-Glucose Sensor (Dexcom G6 Sensor) device Discontinued 0 .ROUTE .MEDSUPPLY April 01, 2020 12:00am May 01, 2023 2:54pm As directed Start: 04-01-2020 Blood-Glucose Sensor (Dexcom G6 Sensor) device Active 0 .ROUTE .MEDSUPPLY April 01, 2020 12:00am As directed Start: 04-01-2020 Blood-Glucose Sensor (Dexcom G6 Sensor) device Active 0 .ROUTE .MEDSUPPLY March 31, 2020 11:00pm As directed Blood-Glucose Sensor (Freestyle Vish 3 Plus Sensor) device (2 sources) Start: 01-12-2025 Blood-Glucose Sensor (Freestyle Vish 3 Plus Sensor) device Active 0 .Route 2 January 12, 2025 12:00am 1 sensor q 15 days cholecalciferol 0.125 mg oral tablet (18 sources) Vitamin D Start: 12-15-2024 take 1 tablet by mouth once daily Cholecalciferol (Vitamin D3) (Vitamin D3) 125 mcg (5,000 unit) tablet Active 125 ug PO DAILY December 15, 2024 12:00am Start: 08-09-2021 End: 05-01-2023 take 1 capsule by mouth once daily Cholecalciferol (Vitamin D3) 125 mcg (5,000 unit) capsule Discontinued 125 ug PO DAILY August 09, 2021 1:00am May 01, 2023 2:53pm take 1 tablet by yan th once daily cholecalciferol (VITAMIN D3) 5,000 unit tab Take 5,000 Units by mouth once daily. 0 Active Comment on above: Take 5,000 Units by mouth once daily. fluticasone propionate 0.05 mg/actuat metered dose nasal spray (14 sources) Corticosteroid Start: 10-15-2023 Fluticasone Propionate 50 mcg/actuation spray,suspension Active 2 NMA INTRANASAL DAILY as needed for allergy symptoms October 15, 2023 1:00am Start: 10-15-2023 Fluticasone Pr opionate Active 2 SPRAY INTRANASAL DAILY October 15, 2023 12:00am Start: 06-16-2021 take 1 dose nasal ro bois forte twice daily fluticasone 50 mcg/inh NASAL spray Dose = 1 spray(s), Nostril, each, BID, 0 Refill(s) Start Date: 06/16/21 Status: Ordered Start: 10-16-2019 End: 01-30-2023 FLOVENT HFA 220 mcg/actuatio n inhaler fluticasone 50 mcg/inh NASAL spray (1 source) Start: 06-16-2021 take 1 dose nasal route twice daily fluticasone 50 mcg/inh NASAL spray Dose = 1 spray(s), Nostril, each, BID, 0 Refill(s) Start Date: 06/16/21 Status: Ordered 3 ml insulin aspart, human 100 unt/ml pen injector (20 sources) Insulin Analog Start: 09-05-2024 Insulin Aspart U-100 (Novolog Flexpen U-100 Insulin) 100 unit/mL (3 mL) insulin pen Active 20 U SC THREE TIMES A DAY 60 September 05, 2024 1:00am On Hold: Ordered Start: 10-29-2023 End: 04-04-2024 Insulin Aspart (Niacinamide) (Fiasp Flextouch U-100 Insulin) 100 unit/mL (3 mL) insulin pen Discontinued 1 sliding scale dose SC THREE TIMES A DAY 54 March 10, 2024 8:00am April 04, 2024 5:02pm May substitute any rapid analog insulin including aspart, lispro, Novolog, Humalog or Apidra. Start: 04-01-2020 End: 07-04-2022 Insulin Aspart U-100 (Novolo g Flexpen U-100 Insulin) 100 unit/mL (3 mL) insulin pen Discontinued 30 U SC THREE TIMES A DAY 120 June 27, 2022 4:06pm July 04, 2022 3:59pm plus sliding scale, max daily dose 135 units Start: 04-01-2020 End: 04-01-2020 Insulin Aspart U-100 (Novolo g Flexpen U-100 Insulin) 100 unit/mL (3 mL) insulin pen Discontinued 10 U SC THREE TIMES A DAY April 01, 2020 12:00am April 01, 2020 4:08pm Start: 11-04-2019 NovoLOG FlexPe n 100 units/mL injectable solution See Instructions, Sliding scale- uses up to 80 units per day with meals, break snack, and at bedtime., # 75 mL, 3 Refill(s), Pharmacy: [facility], 167, cm, 11/04/19 15:51:00 EST, Height, kg, 11/04/19 15:51:00 EST, Dosing Weight Start Date: 11/04/19 Status: Ordered Start: 12-05-2015 End: 02-13-2023 insulin aspart (NOVOLOG FLEX PEN) 100 unit/mL inpn Indications: Type 2 diabetes mellitus without complication (HCC) Inject 20 units sc at breakfast, 25 units at lunch, 30 units at supper. 5 Pen 0 12/05/2015 02/13/2023 Discontinued Comment on above: Inject 20 units sc a t breakfast, 25 units at lunch, 30 units at supper. lisinopril 20 mg oral tablet (20 sources) Angiotensin Converting Enzyme Inhibitor Start: 10-15-2023 take 1 tablet by mouth once daily Lisinopril 20 mg tablet Active 20 mg PO DAILY October 15, 2023 1:00am Start: 05-01-2023 End: 10-15-2023 Lisinopril 10 mg tablet Disc ontinued 20 mg PO May 01, 2023 2:52pm October 15, 2023 4:23pm Start: 05-01-2023 End: 10-15-2023 Lisinopril Discontinued 20 M G PO May 01, 2023 1:52pm October 15, 2023 3:23pm Start: 08-09-2021 End: 05-09-2022 take 10 mg by mouth once daily Lisinopril 20 mg tablet Discontinued 10 mg PO DAILY August 09, 2021 3:28pm May 09, 2022 3:24pm Start: 08-09-2021 End: 05-09-2022 take 10 mg by mouth once daily Lisinopril Discontinued 10 MG PO DAILY August 09, 2021 2:28pm May 09, 2022 2:24pm Start: 08-09-2021 End: 05-01-2023 Lisinopril 10 mg tablet Disc ontinued 10 mg PO August 09, 2021 1:00am May 01, 2023 2:54pm Start: 07-23-2019 End: 08-09-2021 take 1 tablet by mouth once daily Lisinopril 20 mg tablet Discontinued 20 mg PO DAILY April 01, 2020 12:00am August 09, 2021 3:29pm Comment on above: Take 10 mg by mouth once daily. Take 20 mg by mouth every morning. loratadine 10 mg oral tablet (20 sources) Start: take 1 tablet by mouth once daily Loratadine 10 mg tablet Active 10 mg PO DAILY May 09, 2022 12:00am Comment on above: Take by mouth. Take 10 mg by mouth every morning. methylPREDNISolone 4 mg oral tablet (1 source) Corticosteroid Start: End: Medrol Dosepak 4 mg oral tablet 1 packet(s), Oral, qDay, as directed on package labeling, X 6 day(s), # 21 tab(s), 0 Refill(s), 04/24/22 10:44:00 EDT, Pharmacy: [facility], Lumbar foraminal stenosis Lumbar radiculopathy, 167.6, cm, 04/18/22 10:19:00 EDT, Height Start Date: 04/18/22 Stop Date: 04/24/22 Status: Ordered Mometasone-Formoterol (Dulera) 200-5 mcg/actuation HFA aerosol inhaler (3 sources) Start: 025 Mometasone-Formoter ol (Dulera) 200-5 mcg/actuation HFA aerosol inhaler Active 2 NMA INHALATION TWICE A DAY December 15, 2024 12:00am Multivitamin (Daily Multi-Vitamin) tablet (13 sources) Start: 020 take 1 tablet by mouth once daily Multivitamin (Daily Multi-Vitamin) tablet Active 1 TABLET PO DAILY April 01, 2020 10:50am Start: 04-01-2020 Multivitamin ( Daily Multi-Vitamin) tablet Active 1 {tbl} PO DAILY April 01, 2020 12:00am Start: 04-01-2020 take 1 tablet by yan th once daily Multivitamin (Daily Multi-Vitamin) tablet Active 1 TABLET PO DAILY April 01, 2020 12:00am Start: 04-01-2020 take 1 tablet by yan th once daily Multivitamin (Daily Multi-Vitamin) tablet Active 1 TABLET PO DAILY March 31, 2020 11:00pm NovoLOG FlexPen 100 units/mL injectable solution (1 source) Start: 11-04-2019 NovoLOG FlexPe n 100 units/mL injectable solution See Instructions, Sliding scale- uses up to 80 units per day with meals, break snack, and at bedtime., # 75 mL, 3 Refill(s), Pharmacy: [facility], 167, cm, 11/04/19 15:51:00 EST, Height, kg, 11/04/19 15:51:00 EST, Dosing Weight Start Date: 11/04/19 Status: Ordered [place]-3 1000 mg oral capsule (6 sources) Start: 07-23-2019 [place]-3 1000 m g oral capsule Dose : 2,000 mg = 2 cap(s), Oral, BID, 0 Refill(s) Start Date: 07/23/19 Status: Ordered omega-3 acid ethyl esters (alf) 1000 mg oral capsule (20 sources) Start: 06-16-2021 Lovaza 1000 mg oral capsule Dose : 1,000 mg = 1 cap(s), Oral, BID, # 90 cap(s), 0 Refill(s) Start Date: 06/16/21 Status: Ordered Start: 04-01-2020 End: 07-15-2024 take 1 capsule by mouth once daily [place]-3 Acid Ethyl Esters (Lovaza) 1 gram capsule Discontinued 1 NMA PO DAILY April 01, 2020 12:00am July 15, 2024 4:26pm Start: 12-24-2013 End: 01-30-2023 take 2 capsules by mouth twice daily LOVAZA 1 gram capsule Indications: Other and unspecified hyperlipidemia Take 2 capsules by mouth twice daily. 360 capsule 3 12/24/2013 01/30/2023 Discontinued Comment on above: Take 2 capsules by [facility] twice daily. [place]-3 Fatty Acids 500 mg capsule (3 sources) Start: 12-16-19 take 1 capsule by mouth twice daily [place]-3 Fatty Acids 500 mg capsule Active 1000 mg PO TWICE A DAY December 15, 2024 12:00am omeprazole 20 mg delayed release oral capsule (18 sources) Proton Pump Inhibitor Start: 12-16-19 take 1 capsule by mouth once daily as needed for gastroesophageal reflux disease Omeprazole 20 mg capsule,delayed release(DR/EC) Active 20 mg PO DAILY as needed for GERD December 15, 2024 12:00am Start: 10-15-2023 End: 07-15-2024 take 1 capsule by mouth once daily Omeprazole 20 mg capsule,delayed release(DR/EC) Discontinued 20 mg PO DAILY October 15, 2023 4:24pm July 15, 2024 4:27pm Start: 05-01-2023 End: 10-15-2023 take 1 capsule by mouth twice daily Omeprazole 20 mg capsule,delayed release(DR/EC) Discontinued 20 mg PO TWICE A DAY May 01, 2023 12:00am October 15, 2023 4:25pm take 1 capsule by [facility] twice daily omeprazole (PRILOSEC) 20 mg capsule Take 20 mg by mouth twice daily. 0 Suspended Comment on above: Take 20 mg by mouth twice daily. Pen needles 8 mm (1 source) Start: 11-04-19 Pen needles 8 mm See Instructions, BD UF 8mm 31 G (short) qs 1 month supply, # 200 EA, 3 Refill(s), Pharmacy: [facility], 167, cm, 11/04/19 15:51:00 EST, Height, 116, kg, 11/04/19 15:51:00 EST, Dosing Weight Start Date: 11/04/19 Status: Ordered tadalafil 10 mg oral tablet (20 sources) Phosphodiesterase 5 Inhibitor Start: 10-15-19 take 1 tablet by mouth once daily as needed Tadalafil 10 mg tablet Active 20 mg PO DAILY as needed for sexual activity October 15, 2023 1:00am Start: 10-15-2023 take 20 mg by mouth once daily Tadalafil Active 20 MG PO DAILY October 15, 2023 12:00am Start: 04-21-2021 End: 05-01-2023 Tadalafil 10 mg tablet Disco ntinued 10 mg PO as needed January 02, 2023 3:06pm May 01, 2023 2:53pm Comment on above: Take 10 mg by mouth as needed. triamcinolone acetonide 0.005 mg/mg topical ointment (3 sources) Corticosteroid Start: 12-15-2024 Triamcinolone Acetonide 0.5 % ointment Active 1 NMA TOPICAL TWICE A DAY as needed for SKIN December 15, 2024 12:00am ubidecarenone 100 mg oral capsule (20 sources) Start: 12-15-2024 Coenzyme Q10 (Co Q-10) 100 mg capsule Active 100 mg PO DAILY December 15, 2024 12:00am Start: 04-21-2021 End: 10-15-2023 Coenzyme Q10 (Co Q-10) 100 m g capsule Discontinued 100 mg PO DAILY April 21, 2021 12:00am October 15, 2023 4:21pm End: 02-14-2023 ubidecarenone Q-10 (COENZYME Q-10) 10 mg cap Take 100 mg by mouth once daily. 0 02/14/2023 Discontinued Comment on above: Take 100 mg by mouth once daily. Completed/Discontinued Medications Medication Drug Class(es) Dates Sig (Normalized) Sig (Original) acetaminophen 325 mg / HYDROcodone bitartrate 5 mg oral tablet (16 sources) Opioid Agonist Start: 05-09-2022 End: 01-02-2023 Hydrocodone-Acetami nophen 5-325 mg tablet Discontinued 1 {tbl} PO May 09, 2022 12:00am January 02, 2023 3:05pm Start: 05-09-2022 End: 01-02-2023 Hydrocodone-Acetaminophen Di scontinued 1 TABLET PO May 08, 2022 11:00pm January 02, 2023 2:05pm Start: 04-18-2022 take 1 tablet by yan th twice daily as needed for pain Artemus 325- 5 mg oral tablet Dose = 1 tab(s), Oral, BID, PRN for pain, # 60 tab(s), 0 Refill(s), Pharmacy: [facility], Lumbar foraminal stenosis Lumbar radiculopathy, 167.6, cm, 04/18/22 10:19:00 EDT, Height, 112.6 Start Date: 04/18/22 Status: Ordered Acetaminophen / oxyCODONE (1 source) Opioid Agonist take 1 tablet by mouth every twelve hours as needed oxyCODONE-acetaminophen (PERCOCET) 5325 mg per tablet Take 1 tablet by mouth twice daily as needed (pain). 5-325mg 0 Suspended Comment on above: Take 1 tablet by yan th twice daily as needed (pain). 5-325mg Blood-Glucose Meter,Continuous (Dexcom G6 Manager Of Disaster Recovery) misc (20 sources) Start: End: Blood-Glucose Meter,Continuo us (Dexcom G6 Manager Of Disaster Recovery) misc Discontinued 0 .ROUTE .MEDSUPPLY 1 April 01, 2020 3:11pm August 09, 2021 2:57pm As directed with sensor to monitor Glucose levels Start: 04-01-2020 End: 08-09-2021 Blood-Glucose Meter,Continuo us (Dexcom G6 Manager Of Disaster Recovery) misc Discontinued 0 .ROUTE .MEDSUPPLY 1 April 01, 2020 4:11pm August 09, 2021 3:57pm As directed with sensor to monitor Glucose levels Start: 04-01-2020 End: 04-01-2020 Blood-Glucose Meter,Continuo us (Dexcom G6 Manager Of Disaster Recovery) misc Discontinued 0 .ROUTE .MEDSUPPLY 1 April 01, 2020 4:05pm April 01, 2020 4:14pm As directed with sensor to monitor Glucose levels Start: 04-01-2020 End: 04-01-2020 Blood-Glucose Meter,Continuo us (Dexcom G6 Manager Of Disaster Recovery) misc Discontinued 0 .ROUTE .MEDSUPPLY 1 April 01, 2020 12:00am April 01, 2020 4:14pm As directed with sensor to monitor Glucose levels Start: 04-01-2020 End: 04-01-2020 Blood-Glucose Meter,Continuo us (Dexcom G6 Manager Of Disaster Recovery) misc Discontinued 0 .ROUTE .MEDSUPPLY 1 March 31, 2020 11:00pm April 01, 2020 3:14pm As directed with sensor to monitor Glucose levels Blood-Glucose Transmitter (Dexcom G6 Transmitter) device (20 sources) Start: 04-01-2020 End: 08-09-2021 Blood-Glucose Transmitter (Dexcom G6 Transmitter) device Discontinued 0 .ROUTE .MEDSUPPLY 1 April 01, 2020 3:11pm August 09, 2021 2:57pm As directed to monitor glucose levels Start: 04-01-2020 End: 08-09-2021 Blood-Glucose Transmitter (D excom G6 Transmitter) device Discontinued 0 .ROUTE .MEDSUPPLY 1 April 01, 2020 4:11pm August 09, 2021 3:57pm As directed to monitor glucose levels Start: 04-01-2020 End: 04-01-2020 Blood-Glucose Transmitter (D excom G6 Transmitter) device Discontinued 0 .ROUTE .MEDSUPPLY 1 April 01, 2020 4:06pm April 01, 2020 4:14pm As directed to monitor glucose levels Start: 04-01-2020 End: 04-01-2020 Blood-Glucose Transmitter (D excom G6 Transmitter) device Discontinued 0 .ROUTE .MEDSUPPLY 1 April 01, 2020 12:00am April 01, 2020 4:14pm As directed to monitor glucose levels Start: 04-01-2020 End: 04-01-2020 Blood-Glucose Transmitter (D excom G6 Transmitter) device Discontinued 0 .ROUTE .MEDSUPPLY March 31, 2020 11:00pm April 01, 2020 3:14pm As directed to monitor glucose levels Budesonide-Formoterol (5 sources) Corticosteroid, beta2-Adrenergic Agonist Start: 10-15-2023 End: 07-15-2024 Budesonide-Formoterol (Symbicort) 160-4.5 mcg/actuation HFA aerosol inhaler Discontinued 2 NMA INHALATION TWICE A DAY October 15, 2023 1:00am July 15, 2024 4:26pm Start: 10-15-2023 take 1 puff(s) by in halation twice daily Budesonide-Formoterol (Symbicort) 160-4.5 mcg/actuation HFA aerosol inhaler Active 2 PUFF INHALATION TWICE A DAY October 15, 2023 12:00am cholecalciferol, vitamin D3, (VITAMIN D3 ORAL) (4 sources) End: 01-15-2023 take 5000 mg by mouth once daily cholecalciferol, vitamin D3, (VITAMIN D3 ORAL) Take 5,000 mg by mouth once daily. 0 01/15/2023 Discontinued take 5000 mg by mouth once daily cholecalciferol, vitamin D3, (VITAMIN D3 ORAL) Take 5,000 mg by mouth once daily. 0 Active Comment on above: Take 5,000 mg by yan th once daily. COMPOUNDED PRESCRIPTION (5 sources) Start: 03-10-2011 COMPOUNDED PRESCRIPTION BLOOD PRESSURE CUFF FOR HOME USE. DX: LABILE BLOOD PRESSURE 1 Device 0 03/10/2011 Suspended Start: 03-10-2011 COMPOUNDED PRE SCRIPTION BLOOD PRESSURE CUFF FOR HOME USE. DX: LABILE BLOOD PRESSURE 1 Device 0 03/10/2011 Active Comment on above: BLOOD PRESSURE CUFF FOR HOME USE. DX: LABILE BLOOD PRESSURE dapagliflozin 10 mg oral tablet (20 sources) Sodium-Glucose Cotransporter 2 Inhibitor Start: 02-28-20 End: 01-13-20 take 1 tablet by mouth once daily Dapagliflozin Propanediol (Farxiga) 10 mg tablet Discontinued 10 mg PO DAILY January 12, 2025 10:44am January 12, 2025 2:25pm empagliflozin 25 mg oral tablet (20 sources) Sodium-Glucose Cotransporter 2 Inhibitor Start: 04-01-20 End: 08-09-20 21 take 1 tablet by mouth once daily Empagliflozin (Jardiance) 25 mg tablet Discontinued 25 mg PO DAILY May 30, 2021 9:35am August 09, 2021 3:24pm Flash Glucose Sensor (Freestyle Vish 14 Day Sensor) kit (13 sources) Start: 04-01-20 End: 04-01-20 Flash Glucose Sensor (Freestyle Vish 14 Day Sensor) kit Discontinued 0 .ROUTE .MEDSUPPLY 2 April 01, 2020 10:52am April 01, 2020 4:08pm As directed Start: 04-01-2020 End: 04-01-2020 Flash Glucose Sensor (Freest yle Vish 14 Day Sensor) kit Discontinued 0 .ROUTE .MEDSUPPLY 2 April 01, 2020 12:00am April 01, 2020 4:08pm As directed Start: 04-01-2020 End: 04-01-2020 Flash Glucose Sensor (Freest yle Vish 14 Day Sensor) kit Discontinued 0 .ROUTE .MEDSUPPLY 2 March 31, 2020 11:00pm April 01, 2020 3:08pm As directed Gnducmphhem-Fyebwmbkd-Rauwrg er (10 sources) Anticholinergic, Corticosteroid, beta2-Adrenergic Agonist Start: 05-01-2023 End: 10-15-2023 Dbmfyfsmxyg-Rdqqyrewk-Igqzus er (Trelegy Ellipta) 100-62.5-25 mcg blister with device Discontinued 1 NMA INHALATION DAILY May 01, 2023 12:00am October 15, 2023 4:20pm Start: 05-01-2023 End: 10-15-2023 Urbctkiamcl-Ilpdmowsn-Mpcnjr er (Trelegy Ellipta) 100-62.5-25 mcg blister with device Discontinued 1 INH INHALATION DAILY April 30, 2023 11:00pm October 15, 2023 3:20pm Start: 05-01-2023 Fluticasone-Um eclidin-Vilanter (Trelegy Ellipta) 100-62.5-25 mcg blister with device Active 1 INH INHALATION DAILY April 30, 2023 11:00pm Start: 05-01-2023 Fluticasone-Um eclidin-Vilanter (Trelegy Ellipta) 100-62.5-25 mcg blister with device Active 1 INH INHALATION DAILY May 01, 2023 12:00am take 1 puff(s) by inhalation once daily in the evening yrqqnpsstqw-iwyhvsksn-rmngtvcg (TRELEGY ELLIPTA) 100-62.5-25 mcg inhalation powder Inhale 1 Puff as instructed every evening. 0 Suspended Comment on above: Inhale 1 Puff as ins tructed every evening. ibuprofen 600 mg oral tablet (13 sources) Nonsteroidal Anti-inflammatory Drug Start: 1 End: 2 take 1 tablet by mouth every eight hours as needed Ibuprofen 600 mg tablet Discontinued 600 mg PO Q8H as needed April 21, 2021 12:00am May 09, 2022 3:23pm 3 ml insulin glargine 100 unt/ml pen injector (20 sources) Insulin Analog Start: 0 End: 2 Insulin Glargine (Basaglar Kwikpen U-100 Insulin) 100 unit/mL (3 mL) insulin pen Discontinued 80 U SC DAILY June 05, 2022 8:24am July 04, 2022 3:59pm Start: 04-01-2020 End: 04-01-2020 Insulin Glargine (Basaglar Kwikpen U-100 Insulin) 100 unit/mL (3 mL) insulin pen Discontinued 10 U SC DAILY April 01, 2020 12:00am April 01, 2020 4:08pm Start: 07-23-2019 inject 1 dose by sub cutaneous injection twice daily Basaglar 100 unit(s)/mL 3 mL KwikPen Dose : 45 unit(s) =, Subcutaneous, BID, 0 Refill(s) Start Date: 07/23/19 Status: Ordered Start: 12-05-2015 End: 01-30-2023 insulin glargine (LANTUS) 10 0 unit/mL injection Indications: Type 2 diabetes mellitus without complication (HCC) 60 units in the am and 60 units in the pm. 10 Vial 3 12/05/2015 01/30/2023 Discontinued Comment on above: 60 units in the am a nd 60 units in the pm. Insulin Lispro (1 source) Insulin Analog End: 02-13-2023 insulin lispro (HUMALOG PEN SUBCUTANEOUS) Inject subcutaneously three times daily. 20 units with breakfast, 25 units with lunch, 30 units with supper 0 02/13/2023 Discontinued Comment on above: Inject subcutaneousl y three times daily. 20 units with breakfast, 25 units with lunch, 30 units with supper 3 ml insulin, regular, human 500 unt/ml pen injector (20 sources) Insulin Start: 10-15-2023 End: 12-15-2024 Insulin Regular Hum U-500 Conc (Humulin R U-500 (Conc) Kwikpen) 500 unit/mL (3 mL) insulin pen Discontinued 90 U SC THREE TIMES A DAY 48 June 30, 2024 1:14pm December 15, 2024 3:06pm Start: 07-04-2022 End: 10-15-2023 inject 30 [IU] by subcutaneous injection three times daily before mealtime, then inject 60 [IU] by subcutaneous injection before mealtime, then inject 90 [IU] by subcutaneous injection before mealtime Insulin Regular Hum U-500 Conc (Humulin R U-500 (Conc) Kwikpen) 500 unit/mL (3 mL) insulin pen Discontinued 0 SC THREE TIMES A DAY October 03, 2023 5:47pm October 15, 2023 4:35pm subcutaneously three times a day; 30 units ac breakfast, 60 units ac lunch and 90 units ac supper meloxicam 15 mg oral tablet (20 sources) Nonsteroidal Anti-inflammatory Drug Start: 10-10-2022 End: 05-01-2023 take 1 tablet by mouth once daily Meloxicam 15 mg tablet Discontinued 15 mg PO DAILY January 02, 2023 12:00am May 01, 2023 2:53pm Start: 01-17-2022 End: 07-04-2022 take 1 tablet by mouth once daily Meloxicam 7.5 mg tablet Discontinued 7.5 mg PO DAILY January 17, 2022 12:00am July 04, 2022 3:25pm Comment on above: Take 15 mg by mouth once daily. multivitamin ORAL tablet (5 sources) Start: 09-23-2010 take 1 tablet by mouth once daily, then take 1 tablet by mouth every other week multivitamin ORAL tablet Take 1 tablet by mouth once daily. Last dose over 2 weeks prior to surgery 0 09/23/2010 Active Start: 09-23-2010 take 1 tablet by yan th once daily, then take 1 tablet by mouth every other week multivitamin ORAL tablet Take 1 tablet by mouth once daily. Last dose over 2 weeks prior to surgery 0 09/23/2010 Suspended Start: 09-23-2010 take 1 tablet by yan th once daily multivitamin ORAL tablet Take one(1) tablet daily. 0 09/23/2010 Active Comment on above: Take one(1) tablet d aily. Take 1 tablet by yan th once daily. Last dose over 2 weeks prior to surgery nabumetone 750 mg oral tablet (12 sources) Nonsteroidal Anti-inflammatory Drug Start: 07-04-2022 End: 01-02-2023 Nabumetone 750 mg tablet Discontinued NMA PO July 04, 2022 12:00am January 02, 2023 3:06pm Start: 07-04-2022 End: 01-02-2023 Nabumetone Discontinued TAB PO July 03, 2022 11:00pm January 02, 2023 2:06pm [place]-3 Fatty Acids 500 mg cap (5 sources) End: 02-14-2023 take 1 capsule by mouth twice daily [place]-3 Fatty Acids 500 mg cap Take 1,000 mg by mouth twice daily. 0 02/14/2023 Discontinued take 1 capsule by mouth twice da nat[place]-3 Fatty Acids 500 mg cap Take 1,000 mg by mouth twice daily. 0 Suspended take 1 capsule by mouth twice da nat[place]-3 Fatty Acids 500 mg cap Take 1,000 mg by mouth twice daily. 0 Active Comment on above: Take 1,000 mg by yan th twice daily. polyethylene glycol 3350 427392 mg / potassium chloride 2970 mg / sodium bicarbonate 6740 mg / sodium chloride 5860 mg / sodium sulfate 56850 mg powder for oral solution (1 source) Osmotic Laxative Start: 3 End: 3 peg 3350-Electrolytes (GOLYTELY) 236-22.74-6.74 -5.86 gram suspension Take 4,000 mL by mouth one time only for 1 dose. 1 Each 0 10/17/2022 10/17/2022 Comment on above: Take 4,000 mL by yan one time only for 1 dose. pregabalin 50 mg oral capsule (20 sources) Start: 4 End: 5 take 1 capsule by mouth once daily Pregabalin 50 mg capsule Discontinued 50 mg PO DAILY October 15, 2023 1:00am December 15, 2024 3:01pm Start: 10-10-2022 End: 05-01-2023 take 1 capsule by mouth three times daily Pregabalin (Lyrica) 100 mg capsule Discontinued 100 mg PO THREE TIMES A DAY January 02, 2023 12:00am May 01, 2023 2:53pm Comment on above: Take 100 mg by mouth three times daily. Tirzepatide (Mounjaro) 2.5 mg/0.5 mL pen injector (5 sources) Start: 10-15-2023 End: 11-12-2023 Tirzepatide (Mounjaro) 2.5 mg/0.5 mL pen injector Discontinued 2.5 mg SC EVERY WEEK 2 October 15, 2023 1:00am November 11, 2023 1:00am November 12, 2023 1:04am Start: 10-15-2023 Tirzepatide (M ounjaro) 2.5 mg/0.5 mL pen injector Active 2.5 MG SC EVERY WEEK 2 October 15, 2023 12:00am Problems Active Problems Problem Classification Problem Date Documented Date Episodic/Chronic Chronic kidney disease (1 source) Chronic kidney disease; Translations: [Chronic kidney disease, stage 3a] Onset: 07-16-2024 Diabetes mellitus with complications (20 sources) Diabetes mellitus; Translations: [Type 2 diabetes mellitus with mild nonproliferative diabetic retinopathy without macular edema, bilateral] Onset: 09-05-2021 04-05-2012 Chronic Diabetes mellitus without complication (20 sources) Type 2 diabetes mellitus; Translations: [Diabetes mellitus] Onset: 09-24-1999 11-05-2019 Chronic Disorders of lipid metabolism (20 sources) Mixed hyperlipidemia; Translations: [Mixed hyperlipidemia] Chronic Esophageal disorders (4 sources) Gastroesophageal reflux disease 03-14-2022 Chronic Essential hypertension (20 sources) Benign essential hypertension; Translations: [Essential (primary) hypertension] Chronic Osteoarthritis (5 sources) Degenerative joint disease [...] of colonic polyps] Onset: 01-15-2023 Episodic Other lower respiratory disease (1 source) Shortness of breath; Translations: [Shortness of breath] Onset: 05-20-2025 Episodic Other male genital disorders (5 sources) Secondary erectile dysfunction; Translations: [Male erectile dysfunction, unspecified] Onset: 08-26-2005 08-31-2010 Chronic Other nervous system disorders (13 sources) Acroparesthesia; Translations: [Paresthesia of skin] 04-21-2021 Episodic Other non-traumatic joint disorders (1 source) Osteophyte, vertebrae; 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] Onset: 02-13-2023 Chronic Other nutritional; endocrine; and metabolic disorders (13 sources) Obesity; Translations: [Obesity, unspecified] 07-06-2020 Chronic Other nutritional; endocrine; and metabolic disorders (8 sources) Obesity, unspecified; Translations: [Obesity, unspecified] Chronic Other nutritional; endocrine; and metabolic disorders (5 sources) Morbid obesity; Translations: [Morbid (severe) obesity due to excess calories] Onset: 03-15-2015 03-15-2015 Chronic Other nutritional; endocrine; and metabolic disorders (1 source) Body mass index 40+ - severely obese; Translations: [Morbid (severe) obesity due to excess calories] Onset: 02-13-2023 02-13-2023 Chronic Residual codes; unclassified (4 sources) Family history of cancer of colon; Translations: [Family history of malignant neoplasm of digestive organs] Onset: 01-15-2023 01-15-2023 Episodic Residual codes; unclassified (1 source) Family history of malignant neoplasm of digestive organs; Translations: [Family history of colon cancer] Onset: 01-15-2023 Episodic Spondylosis; intervertebral disc disorders; other back problems (20 sources) Lumbosacral spondylosis without myelopathy; Translations: [Lumbar spondylosis] Onset: 02-13-2023 03-14-2022 Chronic Spondylosis; intervertebral disc disorders; other back problems (20 sources) Low back pain; Translations: [Low back pain] Onset: 05-08-2013 03-14-2022 Episodic Thyroid disorders (1 source) Nontoxic single thyroid nodule; Translations: [Nontoxic single thyroid nodule] Onset: 05-25-2025 Chronic Past or Other Problems Problem Classification Problem Date Documented Da te Episodic/Chronic Other aftercare (5 sources) Long-term current use of insulin; Translations: [group home (current) use of insulin] Onset: 09-15-2015 09-15-2015 Episodic Other aftercare (1 source) terminal gauger (current) use of insulin; Translations: [Type 2 diabetes mellitus with diabetic autonomic neuropathy, with long-term current use of insulin (HCC)] Onset: 09-05-2021 Episodic Other screening for suspected conditions (not mental disorders or infectious disease) (5 sources) Patient encounter status; Translations: [Encounter for screening for malignant neoplasm of colon] Onset: 01-15-2023 Episodic Sprains and strains (4 sources) Other sprain of right shoulder joint, subsequent encounter; Translations: [Unspecified sprain of right shoulder joint, subsequent encounter] Onset: 11-24-2024 Episodic Results Test Name Value Interpretation Reference Range Facility CBC W/Diff, Automatedon 09-0 Absolute Lymph 1.59 X10 3/uL Normal 0.83-4.51 [facility] Comment on above: Order Comment: Order Date: 05/19/25 Order Info: [id number] - CBCD Performed By: #### L 100.0100, L500.4100, L500.4050, [id number] #### [facility] [address] [place], [address] Absolute Neut 2.8 X10 3/uL Normal 2.0-7.7 [facility] Comment on above: Order Comment: Order Date: 05/19/25 Order Info: [id number] - CBCD Performed By: #### L 100.0100, L500.4100, L500.4050, [id number] #### [facility] [address] [place], [address] Basophils/100 WBC (Bld) 1.0 % Normal 0-1 [facility] Comment on above: Order Comment: Order Date: 05/19/25 Order Info: [id number] - CBCD Performed By: #### L 100.0100, L500.4100, L500.4050, [id number] #### [facility] [address] [place], [address] Eosinophils/100 WBC (Bld) 3.2 % Normal 0-5 [facility] Comment on above: Order Comment: Order Date: 05/19/25 Order Info: [id number] - CBCD Performed By: #### L 100.0100, L500.4100, L500.4050, [id number] #### [facility] [address] [place], [address] Erythrocyte distribution width (RBC) [Ratio] 12.2 % Normal 11.6-14.6 [facility] Comment on above: Order Comment: Order Date: 05/19/25 Order Info: [id number] - CBCD Performed By: #### L 100.0100, L500.4100, L500.4050, [id number] #### [facility] [address] [place], [address] Hematocrit (Bld) [Volume fraction] 45.9 % Normal 40-54 [facility] Comment on above: Order Comment: Order Date: 05/19/25 Order Info: [id number] - CBCD Performed By: #### L 100.0100, L500.4100, L500.4050, [id number] #### [facility] [address] [place], [address] Hemoglobin (Bld) [Mass/Vol] 15.3 g/dL Normal 13.0-16.5 [facility] Comment on above: Order Comment: Order Date: 05/19/25 Order Info: [id number] - CBCD Performed By: #### L 100.0100, L500.4100, L500.4050, [id number] #### [facility] [address] [place], [address] IG% 0.200 Normal 0.0-0.9 [facility] Comment on above: Order Comment: Order Date: 05/19/25 Order Info: [id number] - CBCD Result Comment: IG% - Immature Granulocytes (promyelocytes, myelocytes and metamyelocytes) > 1% indicates that a LEFT SHIFT is Present. Performed By: #### L 100.0100, L500.4100, L500.4050, [id number] #### [facility] [address] [place], [address] Lymphocytes/100 WBC (Bld) 31.7 % Normal 19-41 [facility] Comment on above: Order Comment: Order Date: 05/19/25 Order Info: [id number] - CBCD Performed By: #### L 100.0100, L500.4100, L500.4050, [id number] #### [facility] [address] [place], [address] MCH (RBC) [Entitic mass] 31.4 pg Normal 27.0-32.0 [facility] Comment on above: Order Comment: Order Date: 05/19/25 Order Info: [id number] - CBCD Performed By: #### L 100.0100, L500.4100, L500.4050, [id number] #### [facility] [address] [place], [address] MCHC (RBC) [Mass/Vol] 33.3 g/dL Normal 32-36 [facility] Comment on above: Order Comment: Order Date: 05/19/25 Order Info: [id number] - CBCD Performed By: #### L 100.0100, L500.4100, L500.4050, [id number] #### [facility] [address] [place], [address] MCV (RBC) [Entitic vol] 94.1 fL High 80-94 [facility] Comment on above: Order Comment: Order Date: 05/19/25 Order Info: [id number]- - CBCD Performed By: #### L 100.0100, L500.4100, L500.4050, [id number] #### [facility] [address] [place], [address] Monocytes/100 WBC (Bld) 8.6 % Normal 0-10 [facility] Comment on above: Order Comment: Order Date: 05/19/25 Order Info: [id number] - CBCD Performed By: #### L 100.0100, L500.4100, L500.4050, [id number] #### [facility] [address] [place], [address] Neutrophils/100 WBC (Bld) 55.3 % Normal 47-70 [facility] Comment on above: Order Comment: Order Date: 05/19/25 Order Info: [id number] - CBCD Performed By: #### L 100.0100, L500.4100, L500.4050, [id number] #### [facility] [address] [place], [address] Nucleated RBC (Bld) [#/Vol] 0 10*3/uL Normal 0-5 [facility] Comment on above: Order Comment: Order Date: 05/19/25 Order Info: [id number] - CBCD Performed By: #### L 100.0100, L500.4100, L500.4050, [id number] #### [facility] [address] [place], [address] Platelet mean volume (Bld) [Entitic vol] 8.7 fL Normal 6.2-12.0 [facility] Comment on above: Order Comment: Order Date: 05/19/25 Order Info: [id number] - CBCD Performed By: #### L 100.0100, L500.4100, L500.4050, [id number] #### [facility] [address] [place], [address] Platelets (Bld) [#/Vol] 197 10*3/uL Normal 150-450 [facility] Comment on above: Order Comment: Order Date: 05/19/25 Order Info: [id number]- - CBCD Performed By: #### L 100.0100, L500.4100, L500.4050, [id number] #### [facility] [address] [place], [address] RBC (Bld) [#/Vol] 4.88 10*6/uL Normal 4.6-6.2 [facility] Comment on above: Order Comment: Order Date: 05/19/25 Order Info: [id number] - CBCD Performed By: #### L 100.0100, L500.4100, L500.4050, [id number] #### [facility] [address] [place], [address] RDW SD 42.6 fl Normal 35.1-43.9 [facility] Comment on above: Order Comment: Order Date: 05/19/25 Order Info: [id number] - CBCD Performed By: #### L 100.0100, L500.4100, L500.4050, [id number] #### [facility] [address] [place], [address] WBC (Bld) [#/Vol] 5.0 10*3/uL Normal 4.4-11.0 [facility] Comment on above: Order Comment: Order Date: 05/19/25 Order Info: [id number] - CBCD Performed By: #### L 100.0100, L500.4100, L500.4050, [id number] #### [facility] [address] [place], [address] Comprehensive Metabolic Prof ilon 05-19-2025 Albumin [Mass/Vol] 4.3 g/dL Normal 3.4-4.8 [facility] Comment on above: Order Comment: Order Date: 05/19/25 Order Info: [id number] - CMP Order Info: [id number] - LIPID Performed By: #### L 100.0100, L500.4100, L500.4050, [id number] #### [facility] [address] [place], [address] Albumin/Globulin [Mass ratio] 1.6 {ratio} Normal 0.9-2.4 [facility] Comment on above: Order Comment: Order Date: 05/19/25 Order Info: [id number] - CMP Order Info: [id number] - LIPID Performed By: #### L 100.0100, L500.4100, L500.4050, [id number] #### [facility] [address] [place], [address] ALK PHOS 57 U/L Normal 40-129 [facility] Comment on above: Order Comment: Order Date: 05/19/25 Order Info: [id number] - CMP Order Info: [id number] - LIPID Performed By: #### L 100.0100, L500.4100, L500.4050, [id number] #### [facility] [address] [place], [address] ALT [Catalytic activity/Vol] 44 U/L Normal <=46 [facility] Comment on above: Order Comment: Order Date: 05/19/25 Order Info: [id number] - CMP Order Info: [id number] - LIPID Performed By: #### L 100.0100, L500.4100, L500.4050, [id number] #### [facility] [address] [place], [address] AST [Catalytic activity/Vol] 29 U/L Normal <=37 [facility] Comment on above: Order Comment: Order Date: 05/19/25 Order Info: [id number] - CMP Order Info: [id number] - LIPID Performed By: #### L 100.0100, L500.4100, L500.4050, [id number] #### [facility] [address] [place], [address] Bilirubin [Mass/Vol] 0.56 mg/dL Normal 0.00-1.30 [facility] Comment on above: Order Comment: Order Date: 05/19/25 Order Info: [id number] - CMP Order Info: [id number] - LIPID Performed By: #### L 100.0100, L500.4100, L500.4050, [id number] #### [facility] [address] [place], [address] BUN/CRE 19.2 RATIO Normal 10-20 [facility] Comment on above: Order Comment: Order Date: 05/19/25 Order Info: [id number] - CMP Order Info: [id number] - LIPID Performed By: #### L 100.0100, L500.4100, L500.4050, [id number] #### [facility] [address] [place], [address] Calcium [Mass/Vol] 10.0 mg/dL Normal 7.6-11.0 [facility] Comment on above: Order Comment: Order Date: 05/19/25 Order Info: [id number] - CMP Order Info: [id number] - LIPID Performed By: #### L 100.0100, L500.4100, L500.4050, [id number] #### [facility] [address] [place], [address] Chloride [Moles/Vol] 106 mmol/L Normal 98-108 [facility] Comment on above: Order Comment: Order Date: 05/19/25 Order Info: [id number] - CMP Order Info: [id number] - LIPID Performed By: #### L 100.0100, L500.4100, L500.4050, [id number] #### [facility] [address] [place], [address] CO2 [Moles/Vol] 23.7 mmol/L Normal 21.0-32.0 [facility] Comment on above: Order Comment: Order Date: 05/19/25 Order Info: [id number] - CMP Order Info: [id number] - LIPID Performed By: #### L 100.0100, L500.4100, L500.4050, [id number] #### [facility] [address] [place], [address] Creatinine [Mass/Vol] 1.28 mg/dL High 0.70-1.20 [facility] Comment on above: Order Comment: Order Date: 05/19/25 Order Info: [id number] - CMP Order Info: [id number] - LIPID Performed By: #### L 100.0100, L500.4100, L500.4050, [id number] #### [facility] [address] [place], [address] GAP 11 Normal 5-15 [facility] Comment on above: Order Comment: Order Date: 05/19/25 Order Info: [id number] - CMP Order Info: [id number] - LIPID Performed By: #### L 100.0100, L500.4100, L500.4050, [id number] #### [facility] [address] [place], [address] GFR/1.73 sq M.predicted among non-blacks MDRD (S/P/Bld) [Vol rate/Area] 62 mL/min/{1.73_m2} Normal >60 [facility] Comment on above: Order Comment: Order Date: 05/19/25 Order Info: [id number] - CMP Order Info: [id number] - LIPID Result Comment: mL/m in/1.73m2 CKD-EPI Creatinine Equation (2020) Performed By: #### L 100.0100, L500.4100, L500.4050, [id number] #### [facility] [address] [place], [address] Globulin (S) [Mass/Vol] 2.7 g/dL Normal 2.2-4.2 [facility] Comment on above: Order Comment: Order Date: 05/19/25 Order Info: [id number] - CMP Order Info: [id number] - LIPID Performed By: #### L 100.0100, L500.4100, L500.4050, L509.1000 #### [facility] [address] [place], [address] Glucose [Mass/Vol] 143 mg/dL High 70-99 [facility] Comment on above: Order Comment: Order Date: 05/19/25 Order Info: [id number] - CMP Order Info: [id number] - LIPID Performed By: #### L 100.0100, L500.4100, L500.4050, L509.1000 #### [facility] [address] [place], [address] Potassium [Moles/Vol] 4.1 mmol/L Normal 3.3-5.1 [facility] Comment on above: Order Comment: Order Date: 05/19/25 Order Info: [id number] - CMP Order Info: [id number] - LIPID Performed By: #### L 100.0100, L500.4100, L500.4050, L509.1000 #### [facility] [address] [place], [address] Sodium [Moles/Vol] 141 mmol/L Normal 133-145 [facility] Comment on above: Order Comment: Order Date: 05/19/25 Order Info: [id number] - CMP Order Info: [id number] - LIPID Performed By: #### L 100.0100, L500.4100, L500.4050, L509.1000 #### [facility] [address] [place], [address] T PROT 7.0 g/dL Normal 5.9-8.4 [facility] Comment on above: Order Comment: Order Date: 05/19/25 Order Info: [id number] - CMP Order Info: [id number] - LIPID Performed By: #### L 100.0100, L500.4100, L500.4050, L509.1000 #### [facility] [address] [place], [address] Urea nitrogen [Mass/Vol] 25 mg/dL High 4-19 [facility] Comment on above: Order Comment: Order Date: 05/19/25 Order Info: [id number] - CMP Order Info: [id number] - LIPID Performed By: #### L 100.0100, L500.4100, L500.4050, L509.1000 #### [facility] [address] [place], [address] Lipid Profileon 05-19-2025 CHOL:HDL 2.73 Normal [facility] Comment on above: Order Comment: Order Date: 05/19/25 Order Info: [id number] - CMP Order Info: [id number] - LIPID Performed By: #### L 100.0100, L500.4100, L500.4050, L509.1000 #### [facility] [address] [place], [address] Cholesterol [Mass/Vol] 145 mg/dL Normal <=200 [facility] Comment on above: Order Comment: Order Date: 05/19/25 Order Info: [id number] - CMP Order Info: [id number] - LIPID Result Comment: Chol esterol level, Desirable <200 mg/dL Borderline high cholesterol 200-239 mg/dL High cholesterol >=240 mg/dL Recommendations of the NCEP Adult Treatment Panel for the following risk-cutoff thresholds for the [place] population. Performed By: #### L 100.0100, L500.4100, L500.4050, L509.1000 #### [facility] [address] [place], [address] Cholesterol in HDL [Mass/Vol] 53 mg/dL Normal [facility] Comment on above: Order Comment: Order Date: 05/19/25 Order Info: [id number] - [facility] Order Info: [id number] - LIPID Result Comment: Diandra onal Cholesterol Education Program (NCEP) guidelines: <40 mg/dL: Low HDL-cholesterol (major risk factor for CHD) >= 60 mg/dL: High HDL-cholesterol (negative risk factor for CHD) HDL-cholesterol is affected by a number of factors, e.g. smoking, exercise, hormones, sex and age. Performed By: #### L 100.0100, L500.4100, L500.4050, L509.1000 #### [facility] [address] [place], [address] Cholesterol in LDL [Mass/Vol] 64 mg/dL Normal [facility] Comment on above: Order Comment: Order Date: 05/19/25 Order Info: [id number] - CMP Order Info: [id number] - LIPID Result Comment: Bord gzwuqr=291-642 mg/dL Higher Disn=908 mg/dL or greater Friedwald Equation for LDL-C Performed By: #### L 100.0100, L500.4100, L500.4050, L509.1000 #### [facility] [address] [place], [address] Cholesterol in VLDL [Mass/Vol] 28 mg/dL Normal 5-40 [facility] Comment on above: Order Comment: Order Date: 05/19/25 Order Info: [id number] - CMP Order Info: [id number] - LIPID Performed By: #### L 100.0100, L500.4100, L500.4050, L509.1000 #### [facility] [address] [place], [address] Triglyceride [Mass/Vol] 141 mg/dL Normal [facility] Comment on above: Order Comment: Order Date: 05/19/25 Order Info: [id number] - CMP Order Info: [id number] - LIPID Result Comment: The drugs N-Acetylcysteine and Metamizole may falsely depress this assay. Normal range: <150 mg/dL Borderline High: 150-199 mg/dL High: 200-499 mg/dL Very High: >500 mg/dL Performed By: #### L 100.0100, L500.4100, L500.4050, L509.1000 #### [facility] [address] [place], [address] PTHINon 05-19-2025 PTH 21 pg/mL Normal 11-61 [facility] Comment on above: Order Comment: Order Date: 05/19/25 Order Info: [id number] - PTHIN Performed By: #### L 100.0100, L500.4100, L500.4050, L509.1000 #### [facility] [address] [place], [address] Protein+Creatinine Ratio,Uri neon 05-19-2025 PROT:CRE RATIO 157 mg/g CRE Normal 0-200 [facility] Comment on above: Performed By: #### L 100.0100, L500.4100, L500.4050, L509.1000 #### [facility] [address] [place], [address] Protein (U) [Mass/Vol] 9.8 mg/dL Normal 0.0-12.0 [facility] Comment on above: Performed By: #### L 100.0100, L500.4100, L500.4050, L509.1000 #### [facility] [address] [place], [address] UR CREAT 62.60 mg/dL Normal 39.00-259.0 0 [facility] Comment on above: Performed By: #### L 100.0100, L500.4100, L500.4050, L509.1000 #### [facility] [address] [place], [address] Urinalysis, Completeon 05-19 BACTERIA 0 SEEN Normal None Seen [facility] Comment on above: Order Comment: Order Date: 05/19/25 Order Info: [id number] - CMP Order Info: [id number] - LIPID Performed By: #### L 100.0100, L500.4100, L500.4050, L509.1000 #### [facility] [address] [place], [address] EPI,SQUAMOUS 0 SEEN Normal 0-5 [facility] Comment on above: Order Comment: Order Date: 05/19/25 Order Info: [id number] - CMP Order Info: [id number] - LIPID Performed By: #### L 100.0100, L500.4100, L500.4050, L509.1000 #### [facility] [address] [place], [address] Mucus Ql (Urine sed) 0 SEEN Normal [facility] Comment on above: Order Comment: Order Date: 05/19/25 Order Info: [id number] - CMP Order Info: [id number] - LIPID Performed By: #### L 100.0100, L500.4100, L500.4050, L509.1000 #### [facility] [address] [place], [address] RBC 0 SEEN Normal 0-5 [facility] Comment on above: Order Comment: Order Date: 05/19/25 Order Info: [id number] - CMP Order Info: [id number] - LIPID Performed By: #### L 100.0100, L500.4100, L500.4050, L509.1000 #### [facility] [address] [place], [address] WBC 0 SEEN Normal 0-5 [facility] Comment on above: Order Comment: Order Date: 05/19/25 Order Info: [id number] - CMP Order Info: [id number] - LIPID Performed By: #### L 100.0100, L500.4100, L500.4050, L509.1000 #### [facility] [address] [place], [address] Vitamin D,25 Hydroxyon 05-19 Vitamin D 25-OH 51.7 ng/mL Normal 30-100 [facility] Comment on above: Order Comment: Order Date: 05/19/25 Order Info: [id number] - CMP Order Info: [id number] - LIPID Result Comment: Jillian min D Status Deficiency: <20 ng/mL (50nmol/L) Insufficiency: 20-30 ng/mL (50-75 nmol/L) Sufficiency: 30-100 ng/mL (75-250 nmol/L) Toxicity: >100 ng/mL (>250 nmol/L) Performed By: #### L 100.0100, L500.4100, L500.4050, L509.1000 #### [facility] [address] [place], [address] Endocrinology Visit Reporton 01-22-2025 Endocrinology Visit Report [facility] [address] [place] [address] OFFICE VISIT Date of Service: 01/22/25 MR#: [id number] Acct: [id number] Name: VLAD SIDDIQI Rep #: [id number] 2 : 1960 Provider: Vandana Douglas Age/Sex: 65/M Location: [facility] Status: Signed Intake Vital Signs 07/15/24 15:22 12/25/24 08:29 01/22/25 15:28 Height 5 ft 6 in 5 ft 7 in 5 ft 7 in Weight: 279 lb BMI 43.7 BP 120/75 Blood Pressure Location Lt brachial Position Sitting Pulse 85 Pulse Source Monitor Pulse Oximetry (%) 93 Oxygen Delivery Method room air Comment arm brace/cast Intake Visit Reasons: 6 M FU Chief Complaint: Diabetes Is patient in pain?: No Allergies adhesive tape (plastic tape) Allergy (Intermediate, Verified 01/22/25 15:29) Rash doxycycline Allergy (Intermediate, Verified 01/22/25 15:29) Rash Penicillins Allergy (Intermediate, Verified 01/22/25 15:29) rash Sulfa (Sulfonamide Antibiotics) Allergy (Intermediate, Verified 01/22/25 15:29) Rash exenatide (From [place]) Adverse Reaction (Severe, Verified 01/22/25 15:29) Nausea/Vom/Diarrhea Tetracyclines Adverse Reaction (Severe, Verified 01/22/25 15:29) Unknown Medications ???Medication ???Instructions ???Recorded ???Confirmed ???Type aspirin 81 mg tablet,delayed 81 mg PO DAILY 04/01/20 01/22/25 H istory release (Adult Aspirin Regimen) atorvastatin 20 mg tablet 20 mg PO QHS 04/01/20 01/22/25 His tory multivitamin (Daily Multi-Vitamin 1 tab PO DAILY 04/01/20 01/22/25 History tablet) acetaminophen 500 mg tablet 1,000 mg PO TID 04/21/21 01/22/25 History (Tylenol Extra Strength) loratadine 10 mg tablet 10 mg PO DAILY 05/09/22 01/22/25 H istory pen needle, diabetic 31 gauge x #350 ea 05/01/23 01/22/25 Rx 5/16 (Comfort EZ Pen [place]) fluticasone propionate 50 2 spray intranasal DAILY PRN 10/1501/22/25 History mcg/actuation nasal allergy symptoms spray,suspension lisinopril 20 mg tablet 20 mg PO DAILY 10/15/23 01/22/25 H istory tadalafil 10 mg tablet 20 mg PO DAILY PRN sexual activity 10/15/23 01/22/25 History insulin aspart 1 sliding scale dose subcut TID 01/22/25 Rx (niacinamide)(U-100) 100 unit/mL(3 #60 mL mL) subcutaneous pen (Fiasp FlexTouch U-100 Insulin) insulin aspart U-100 100 unit/mL 20 unit (0.2 mL) subcut TID #60 mL 09/05/24 01/22/25 Rx (3 mL) subcutaneous pen (Novolog FlexPen U-100 Insulin aspart) Held on 12/15/24. Instructions: MD Ordered albuterol sulfate 90 mcg/actuation 2 inh inhalation Q6H PRN shortne ss 12/15/24 01/22/25 History aerosol inhaler of breath or wheezing cholecalciferol (vitamin D3) 125 125 mcg PO DAILY 12/15/24 01/22/25 History mcg (5,000 unit) tablet (Vitamin D3) coenzyme Q10 100 mg capsule (Co 100 mg PO DAILY 12/15/24 01/22/25 History Q-10) insulin regular hum U-500 conc 500 90 unit subcut TID PRN SLIDING 0 12/15/24 01/22/25 History unit/mL(3 mL) subcut pen (Humulin SCALE R U-500 (Conc) Insulin Kwikpen) mometasone-formoterol HFA 200 2 puff inhalation BID 12/15/24 History mcg-5 mcg/actuation aerosol inhaler (Dulera) omega-3 fatty acids 500 mg capsule 1,000 mg PO BID 12/15/24 5 History omeprazole 20 mg capsule,delayed 20 mg PO DAILY PRN GERD 12/15/24 0 01/22/25 History release triamcinolone acetonide 0.5 % 1 applic topical BID PRN SKIN 04/0301/22/25 History topical ointment Farxiga 10 mg tablet 10 mg PO DAILY #90 tabs 01/12/25 0 01/22/25 Rx (dapagliflozin propanediol) blood-glucose sensor (FreeStyle #2 ea 01/12/25 01/22/25 Rx Vish 3 Plus Sensor device) Have you fallen in the past year?: No [facility] Medical History Wears glasses Insulin dependent diabetes mellitus History of renal disease Fatty liver High cholesterol Restless legs Dietary restriction Non-smoker CPAP (continuous positive airway pressure) dependence Shortness of breath on exertion History of pain when walking History of stress test Degenerative joint disease (DJD) of lumbar spine Low back pain GERD (gastroesophageal reflux disease) Neuropathy Asthma Arthritis HTN (hypertension) Surgical History Hx of colonoscopy Hx of left knee surgery History of lumbar fusion History of carpal tunnel surgery of right wrist History of carpal tunnel surgery of left wrist Family History Father Arthritis Colon cancer Cancer Diabetes Myocardial infarction CAD (coronary artery disease) Heart disease COPD (chronic obstructive pulmonary disease) Mother Diabetes Heart disease CAD (coronary a (more content not included)... Normal [facility] Absolute lymphocyte countOrd ered By: Kacey Navarro on 01-13-2025 Lymphocytes Auto (Unsp spec) [#/Vol] 2.11 10*3/uL 0.83-4.51 [facility] Absolute neutrophil countOrd ered By: Kacey Navarro on 01-13-2025 Neutrophils (Bld) [#/Vol] 3.4 10*3/uL 2.0-7.7 [facility] Anion gap in Serum or Plasma Ordered By: Kacey Navarro on 01-13-2025 Anion gap [Moles/Vol] 11 mmol/L 5-15 [facility] Automated lymphocyte count a s percentage of total leukocytesOrdered By: Kacey Navarro on 01-13-2025 Lymphocytes/100 WBC Auto (Unsp spec) 31.8 % 19-41 [facility] BUN/creatinine ratioOrdered By: Kacey Navarro on 01-13-2025 Urea nitrogen/Creatinine [Mass ratio] 16.7 mg/mg 10-20 [facility] Basophil percentageOrdered B y: Kacey Navarro on 01-13-2025 Basophils/100 WBC (Bld) 1.2 % High 0-1 [facility] Bilirubin, totalOrdered By: Kacey Navarro on 01-13-2025 Bilirubin [Mass/Vol] 0.25 mg/dL 0.00-1.30 [facility] CBC W/Diff, Automatedon 05-0 6-2025 Absolute Lymph 2.11 X10 3/uL Normal 0.83-4.51 [facility] Comment on above: Order Comment: Order Date: 05/19/25 Order Info: [id number] - CMP Order Info: [id number] - LIPID Performed By: #### L 100.0100, L500.4100, L500.4050, L509.1000 #### [facility] [address] [place], [address] Absolute Neut 3.4 X10 3/uL Normal 2.0-7.7 [facility] Comment on above: Order Comment: Order Date: 05/19/25 Order Info: [id number] - CMP Order Info: [id number] - LIPID Performed By: #### L 100.0100, L500.4100, L500.4050, L509.1000 #### [facility] [address] [place], [address] Basophils/100 WBC (Bld) 1.2 % High 0-1 [facility] Comment on above: Order Comment: Order Date: 05/19/25 Order Info: [id number] - CMP Order Info: [id number] - LIPID Performed By: #### L 100.0100, L500.4100, L500.4050, L509.1000 #### [facility] [address] [place], [address] Eosinophils/100 WBC (Bld) 7.2 % High 0-5 [facility] Comment on above: Order Comment: Order Date: 05/19/25 Order Info: [id number]- - CMP Order Info: [id number] - LIPID Performed By: #### L 100.0100, L500.4100, L500.4050, L509.1000 #### [facility] [address] [place], [address] Erythrocyte distribution width (RBC) [Ratio] 12.3 % Normal 11.6-14.6 [facility] Comment on above: Order Comment: Order Date: 05/19/25 Order Info: [id number] - CMP Order Info: [id number] - LIPID Performed By: #### L 100.0100, L500.4100, L500.4050, L509.1000 #### [facility] [address] [place], [address] Hematocrit (Bld) [Volume fraction] 44.9 % Normal 40-54 [facility] Comment on above: Order Comment: Order Date: 05/19/25 Order Info: [id number] - CMP Order Info: [id number] - LIPID Performed By: #### L 100.0100, L500.4100, L500.4050, L509.1000 #### [facility] [address] [place], [address] Hemoglobin (Bld) [Mass/Vol] 14.8 g/dL Normal 13.0-16.5 [facility] Comment on above: Order Comment: Order Date: 05/19/25 Order Info: [id number] - CMP Order Info: [id number] - LIPID Performed By: #### L 100.0100, L500.4100, L500.4050, L509.1000 #### [facility] [address] [place], [address] IG% 0.200 Normal 0.0-0.9 [facility] Comment on above: Order Comment: Order Date: 05/19/25 Order Info: [id number] - CMP Order Info: [id number] - LIPID Result Comment: IG% - Immature Granulocytes (promyelocytes, myelocytes and metamyelocytes) > 1% indicates that a LEFT SHIFT is Present. Performed By: #### L 100.0100, L500.4100, L500.4050, L509.1000 #### [facility] [address] [place], [address] Lymphocytes/100 WBC (Bld) 31.8 % Normal 19-41 [facility] Comment on above: Order Comment: Order Date: 05/19/25 Order Info: [id number]- - CMP Order Info: [id number] - LIPID Performed By: #### L 100.0100, L500.4100, L500.4050, L509.1000 #### [facility] [address] [place], [address] MCH (RBC) [Entitic mass] 31.2 pg Normal 27.0-32.0 [facility] Comment on above: Order Comment: Order Date: 05/19/25 Order Info: [id number] - CMP Order Info: [id number] - LIPID Performed By: #### L 100.0100, L500.4100, L500.4050, L509.1000 #### [facility] [address] [place], [address] MCHC (RBC) [Mass/Vol] 33.0 g/dL Normal 32-36 [facility] Comment on above: Order Comment: Order Date: 05/19/25 Order Info: [id number]- - CMP Order Info: [id number] - LIPID Performed By: #### L 100.0100, L500.4100, L500.4050, L509.1000 #### [facility] [address] [place], [address] MCV (RBC) [Entitic vol] 94.5 fL High 80-94 [facility] Comment on above: Order Comment: Order Date: 05/19/25 Order Info: [id number]- - CMP Order Info: [id number] - LIPID Performed By: #### L 100.0100, L500.4100, L500.4050, L509.1000 #### [facility] [address] [place], [address] Monocytes/100 WBC (Bld) 8.0 % Normal 0-10 [facility] Comment on above: Order Comment: Order Date: 05/19/25 Order Info: [id number] - CMP Order Info: [id number] - LIPID Performed By: #### L 100.0100, L500.4100, L500.4050, L509.1000 #### [facility] [address] [place], [address] Neutrophils/100 WBC (Bld) 51.6 % Normal 47-70 [facility] Comment on above: Order Comment: Order Date: 05/19/25 Order Info: [id number] - CMP Order Info: [id number] - LIPID Performed By: #### L 100.0100, L500.4100, L500.4050, L509.1000 #### [facility] [address] [place], [address] Nucleated RBC (Bld) [#/Vol] 0 10*3/uL Normal 0-5 [facility] Comment on above: Order Comment: Order Date: 05/19/25 Order Info: [id number] - CMP Order Info: [id number] - LIPID Performed By: #### L 100.0100, L500.4100, L500.4050, L509.1000 #### [facility] [address] [place], [address] Platelet mean volume (Bld) [Entitic vol] 8.6 fL Normal 6.2-12.0 [facility] Comment on above: Order Comment: Order Date: 05/19/25 Order Info: [id number] - CMP Order Info: [id number] - LIPID Performed By: #### L 100.0100, L500.4100, L500.4050, L509.1000 #### [facility] [address] [place], [address] Platelets (Bld) [#/Vol] 231 10*3/uL Normal 150-450 [facility] Comment on above: Order Comment: Order Date: 05/19/25 Order Info: [id number] - CMP Order Info: [id number] - LIPID Performed By: #### L 100.0100, L500.4100, L500.4050, L509.1000 #### [facility] [address] [place], [address] RBC (Bld) [#/Vol] 4.75 10*6/uL Normal 4.6-6.2 [facility] Comment on above: Order Comment: Order Date: 05/19/25 Order Info: [id number] - CMP Order Info: [id number] - LIPID Performed By: #### L 100.0100, L500.4100, L500.4050, L509.1000 #### [facility] [address] [place], [address] RDW SD 42.5 fl Normal 35.1-43.9 [facility] Comment on above: Order Comment: Order Date: 05/19/25 Order Info: [id number] - CMP Order Info: [id number] - LIPID Performed By: #### L 100.0100, L500.4100, L500.4050, L509.1000 #### [facility] [address] [place], [address] WBC (Bld) [#/Vol] 6.6 10*3/uL Normal 4.4-11.0 [facility] Comment on above: Order Comment: Order Date: 05/19/25 Order Info: [id number] - CMP Order Info: [id number] - LIPID Performed By: #### L 100.0100, L500.4100, L500.4050, L509.1000 #### [facility] [address] [place], [address] Calculated very low density lipoprotein (VLDL) cholesterol measurementOrdered By: Kacey Navarro on 01-13-2025 Calculated very low density lipoprotein (VLDL) cholesterol measurement 52 mg/dL High 5-40 [facility] Carbon dioxide, total [Moles /volume] in Central venous bloodOrdered By: Kacey Navarro on 01-13-2025 CO2 [Moles/Vol] 23.2 mmol/L 21.0-32.0 [facility] Chloride assayOrdered By: Gogo Navarro on 01-13-2025 Chloride [Moles/Vol] 107 mmol/L 98-108 [facility] Comprehensive Metabolic Prof ilon 01-13-2025 Albumin [Mass/Vol] 4.1 g/dL Normal 3.4-4.8 [facility] Comment on above: Order Comment: Order Date: 05/19/25 Order Info: [id number] - CMP Order Info: [id number] - LIPID Performed By: #### L 100.0100, L500.4100, L500.4050, L509.1000 #### [facility] [address] [place], [address] Albumin/Globulin [Mass ratio] 1.4 {ratio} Normal 0.9-2.4 [facility] Comment on above: Order Comment: Order Date: 05/19/25 Order Info: [id number] - CMP Order Info: [id number] - LIPID Performed By: #### L 100.0100, L500.4100, L500.4050, L509.1000 #### [facility] [address] [place], [address] ALK PHOS 73 U/L Normal 40-129 [facility] Comment on above: Order Comment: Order Date: 05/19/25 Order Info: [id number] - CMP Order Info: [id number] - LIPID Performed By: #### L 100.0100, L500.4100, L500.4050, L509.1000 #### [facility] [address] [place], [address] ALT [Catalytic activity/Vol] 40 U/L Normal <=46 [facility] Comment on above: Order Comment: Order Date: 05/19/25 Order Info: [id number] - CMP Order Info: [id number] - LIPID Performed By: #### L 100.0100, L500.4100, L500.4050, L509.1000 #### [facility] [address] [place], [address] AST [Catalytic activity/Vol] 27 U/L Normal <=37 [facility] Comment on above: Order Comment: Order Date: 05/19/25 Order Info: [id number] - CMP Order Info: [id number] - LIPID Performed By: #### L 100.0100, L500.4100, L500.4050, L509.1000 #### [facility] [address] [place], [address] Bilirubin [Mass/Vol] 0.25 mg/dL Normal 0.00-1.30 [facility] Comment on above: Order Comment: Order Date: 05/19/25 Order Info: [id number] - CMP Order Info: [id number] - LIPID Performed By: #### L 100.0100, L500.4100, L500.4050, L509.1000 #### [facility] [address] [place], [address] BUN/CRE 16.7 RATIO Normal 10-20 [facility] Comment on above: Order Comment: Order Date: 05/19/25 Order Info: [id number] - CMP Order Info: [id number] - LIPID Performed By: #### L 100.0100, L500.4100, L500.4050, L509.1000 #### [facility] [address] [place], [address] Calcium [Mass/Vol] 9.5 mg/dL Normal 7.6-11.0 [facility] Comment on above: Order Comment: Order Date: 05/19/25 Order Info: [id number] - CMP Order Info: [id number] - LIPID Performed By: #### L 100.0100, L500.4100, L500.4050, L509.1000 #### [facility] [address] [place], [address] Chloride [Moles/Vol] 107 mmol/L Normal 98-108 [facility] Comment on above: Order Comment: Order Date: 05/19/25 Order Info: [id number] - CMP Order Info: [id number] - LIPID Performed By: #### L 100.0100, L500.4100, L500.4050, L509.1000 #### [facility] [address] [place], [address] CO2 [Moles/Vol] 23.2 mmol/L Normal 21.0-32.0 [facility] Comment on above: Order Comment: Order Date: 05/19/25 Order Info: [id number] - CMP Order Info: [id number] - LIPID Performed By: #### L 100.0100, L500.4100, L500.4050, L509.1000 #### [facility] [address] [place], [address] Creatinine [Mass/Vol] 1.26 mg/dL High 0.70-1.20 [facility] Comment on above: Order Comment: Order Date: 05/19/25 Order Info: [id number] - CMP Order Info: [id number] - LIPID Performed By: #### L 100.0100, L500.4100, L500.4050, L509.1000 #### [facility] [address] [place], [address] GAP 11 Normal 5-15 [facility] Comment on above: Order Comment: Order Date: 05/19/25 Order Info: [id number] - CMP Order Info: [id number] - LIPID Performed By: #### L 100.0100, L500.4100, L500.4050, L509.1000 #### [facility] [address] [place], [address] GFR/1.73 sq M.predicted among non-blacks MDRD (S/P/Bld) [Vol rate/Area] 63 mL/min/{1.73_m2} Normal >60 [facility] Comment on above: Order Comment: Order Date: 05/19/25 Order Info: [id number] - CMP Order Info: [id number] - LIPID Result Comment: mL/m in/1.73m2 CKD-EPI Creatinine Equation (2020) Performed By: #### L 100.0100, L500.4100, L500.4050, L509.1000 #### [facility] [address] [place], [address] Globulin (S) [Mass/Vol] 2.9 g/dL Normal 2.2-4.2 [facility] Comment on above: Order Comment: Order Date: 05/19/25 Order Info: [id number] - CMP Order Info: [id number] - LIPID Performed By: #### L 100.0100, L500.4100, L500.4050, L509.1000 #### [facility] [address] [place], [address] Glucose [Mass/Vol] 115 mg/dL High 70-99 [facility] Comment on above: Order Comment: Order Date: 05/19/25 Order Info: [id number] - CMP Order Info: [id number] - LIPID Performed By: #### L 100.0100, L500.4100, L500.4050, L509.1000 #### [facility] [address] [place], [address] Potassium [Moles/Vol] 3.6 mmol/L Normal 3.3-5.1 [facility] Comment on above: Order Comment: Order Date: 05/19/25 Order Info: [id number] - CMP Order Info: [id number] - LIPID Performed By: #### L 100.0100, L500.4100, L500.4050, L509.1000 #### [facility] [address] [place], [address] Sodium [Moles/Vol] 141 mmol/L Normal 133-145 [facility] Comment on above: Order Comment: Order Date: 05/19/25 Order Info: [id number] - CMP Order Info: [id number] - LIPID Performed By: #### L 100.0100, L500.4100, L500.4050, L509.1000 #### [facility] [address] [place], [place], [address] T PROT 7.0 g/dL Normal 5.9-8.4 [facility] Comment on above: Order Comment: Order Date: 05/19/25 Order Info: [id number] - CMP Order Info: [id number] - LIPID Performed By: #### L 100.0100, L500.4100, L500.4050, L509.1000 #### [facility] [address] [place], [address] Urea nitrogen [Mass/Vol] 21 mg/dL High 4-19 [facility] Comment on above: Order Comment: Order Date: 05/19/25 Order Info: [id number] - CMP Order Info: [id number] - LIPID Performed By: #### L 100.0100, L500.4100, L500.4050, L509.1000 #### [facility] [address] [place], [address] Eosinophil percentageOrdered By: Kacey Navarro on 01-13-2025 Eosinophils/100 WBC (Bld) 7.2 % High 0-5 [facility] Erythrocyte distribution wid th ratioOrdered By: Kacey Navarro on 01-13-2025 Erythrocyte distribution width (RBC) [Ratio] 12.3 % 11.6-14.6 [facility] Erythrocyte distribution wid th standard deviationOrdered By: Kacey Navarro on 01-13-2025 Erythrocyte distribution width (RBC) [Ratio] 42.5 fl 35.1-43.9 [facility] Glomerular filtration rate ( GFR) estimation/1.73 sq m using serum, plasma, or whole bOrdered By: Kacey Navarro on 01-13-2025 GFR/1.73 sq M.predicted among non-blacks MDRD (S/P/Bld) [Vol rate/Area] 63 mL/min/{1.73_m2} >60 [facility] Comment on above: mL/min/1.73m2 CKD-EP I Creatinine Equation (2020) Hematocrit Auto (Bld) [Volum e fraction]Ordered By: Kacey Navarro on 01-13-2025 Hematocrit (Bld) [Volume fraction] 44.9 % 40-54 [facility] Hemoglobin measurementOrdere d By: Kacey Navarro on 01-13-2025 Hemoglobin (Bld) [Mass/Vol] 14.8 g/dL 13.0-16.5 [facility] Immature granulocytes/100 WB C Auto (Bld)Ordered By: Kacey Navarro on 01-13-2025 Immature granulocytes/100 WBC (Bld) 0.200 % 0.0-0.9 [facility] Comment on above: IG% - Immature Granu locytes (promyelocytes, myelocytes and metamyelocytes) > 1% indicates that a LEFT SHIFT is Present. LDL calc ser/plasOrdered By: Kacey Navarro on 01-13-2025 Cholesterol in LDL [Mass/Vol] 51 mg/dL [facility] Comment on above: Irsqqlxmwo=620-261 m g/dL & Higher Lgqd=946 mg/dL or greater Laboratory - Chemistry and C hemistry - challengeOrdered By: Kacey Navarro on 01-13-2025 AST [Catalytic activity/Vol] 27 U/L <38 [facility] Lipid Profileon 01-13-2025 CHOL:HDL 3.37 Normal [facility] Comment on above: Order Comment: Order Date: 05/19/25 Order Info: [id number] - CMP Order Info: [id number] - LIPID Performed By: #### L 100.0100, L500.4100, L500.4050, L509.1000 #### [facility] [address] [place], [place] [address], [address] Cholesterol [Mass/Vol] 146 mg/dL Normal <=200 [facility] Comment on above: Order Comment: Order Date: 05/19/25 Order Info: [id number] - CMP Order Info: [id number] - LIPID Result Comment: Chol esterol level, Desirable <200 mg/dL Borderline high cholesterol 200-239 mg/dL High cholesterol >=240 mg/dL Recommendations of the NCEP Adult Treatment Panel for the following risk-cutoff thresholds for the [place] population. Performed By: #### L 100.0100, L500.4100, L500.4050, L509.1000 #### [facility] [address] [place], [address] Cholesterol in HDL [Mass/Vol] 43 mg/dL Normal [facility] Comment on above: Order Comment: Order Date: 05/19/25 Order Info: [id number] - CMP Order Info: [id number] - LIPID Result Comment: Diandra onal Cholesterol Education Program (NCEP) guidelines: <40 mg/dL: Low HDL-cholesterol (major risk factor for CHD) >= 60 mg/dL: High HDL-cholesterol (negative risk factor for CHD) HDL-cholesterol is affected by a number of factors, e.g. smoking, exercise, hormones, sex and age. Performed By: #### L 100.0100, L500.4100, L500.4050, L509.1000 #### [facility] [address] [place], [address] Cholesterol in LDL [Mass/Vol] 51 mg/dL Normal [facility] Comment on above: Order Comment: Order Date: 05/19/25 Order Info: [id number] - CMP Order Info: [id number] - LIPID Result Comment: Bord xdxpdj=511-335 mg/dL Higher Sudf=213 mg/dL or greater Performed By: #### L 100.0100, L500.4100, L500.4050, L509.1000 #### [facility] [address] [place], [address] Cholesterol in VLDL [Mass/Vol] 52 mg/dL High 5-40 [facility] Comment on above: Order Comment: Order Date: 05/19/25 Order Info: [id number] - CMP Order Info: [id number] - LIPID Performed By: #### L 100.0100, L500.4100, L500.4050, L509.1000 #### [facility] [address] [place], [address] Triglyceride [Mass/Vol] 261 mg/dL High [facility] Comment on above: Order Comment: Order Date: 05/19/25 Order Info: [id number] - CMP Order Info: [id number] - LIPID Result Comment: The drugs N-Acetylcysteine and Metamizole may falsely depress this assay. Normal range: <150 mg/dL Borderline High: 150-199 mg/dL High: 200-499 mg/dL Very High: >500 mg/dL Performed By: #### L 100.0100, L500.4100, L500.4050, L509.1000 #### [facility] [address] [place], [place], [address] MCV (mean corpuscular volume ) determinationOrdered By: Kacey Navarro on 01-13-2025 MCV (RBC) [Entitic vol] 94.5 fL High 80-94 [facility] Mean corpuscular hemoglobin (MCH) determinationOrdered By: Kacey Navarro on 01-13-2025 MCH (RBC) [Entitic mass] 31.2 pg 27.0-32.0 [facility] Mean corpuscular hemoglobin concentration (MCHC) determinationOrdered By: Kacey Navarro on 01-13-2025 MCHC (RBC) [Mass/Vol] 33.0 g/dL 32-36 [facility] Mean platelet volume determi nationOrdered By: Kacey Navarro on 01-13-2025 Platelet mean volume (Bld) [Entitic vol] 8.6 fL 6.2-12.0 [facility] Monocyte percentageOrdered B y: Kacey Navarro on 01-13-2025 Monocytes/100 WBC (Bld) 8.0 % 0-10 [facility] Neutrophil percentageOrdered By: Kacey Navarro on 01-13-2025 Neutrophils/100 WBC (Bld) 51.6 % 47-70 [facility] Nucleated red blood cell per centageOrdered By: Kacey Navarro on 01-13-2025 Nucleated RBC/100 WBC (Bld) [Ratio] 0 % 0-5 [facility] PTHINon 01-13-2025 PTH 25 pg/mL Normal 11-61 [facility] Comment on above: Order Comment: Order Date: 05/19/25 Order Info: [id number] - CMP Order Info: [id number] - LIPID Performed By: #### L 100.0100, L500.4100, L500.4050, L509.1000 #### [facility] [address] [place], [address] Platelet countOrdered By: Gogo Navarro on 01-13-2025 Platelets (Bld) [#/Vol] 231 10*3/uL 150-450 [facility] Potassium measurement (mass/ volume)Ordered By: Kacey Navarro on 01-13-2025 Potassium (Unsp spec) [Mass/Vol] 3.6 mmol/L 3.3-5.1 [facility] Protein+Creatinine Ratio,Uri neon 01-13-2025 PROT:CRE RATIO 182 mg/g CRE Normal 0-200 [facility] Comment on above: Performed By: #### L 100.0100, L500.4100, L500.4050, L509.1000 #### [facility] [address] [place], [address] Protein (U) [Mass/Vol] 15.0 mg/dL High 0.0-12.0 [facility] Comment on above: Performed By: #### L 100.0100, L500.4100, L500.4050, L509.1000 #### [facility] [address] [place], [address] UR CREAT 82.20 mg/dL Normal 39.00-259.0 0 [facility] Comment on above: Performed By: #### L 100.0100, L500.4100, L500.4050, L509.1000 #### [facility] [address] [place], [address] RBC Auto (Bld) [#/Vol]Ordere d By: Kacey Navarro on 01-13-2025 RBC (Bld) [#/Vol] 4.75 10*6/uL 4.6-6.2 [facility] Random urine creatinine melanie urement (mass/volume)Ordered By: Kacey Navarro on 01-13-2025 Creatinine Unsp time (U) [Mass/Vol] 82.20 mg/dL 39.00-259.0 0 [facility] Screening total cholesterol/ high density lipoprotein (HDL) cholesterol ratioOrdered By: Kacey Navarro on 01-13-2025 Cholesterol.total/Sparkle sterol in HDL [Mass ratio] 3.37 {ratio} [facility] Serum creatinine measurement (mass/volume)Ordered By: Kacey Navarro on 01-13-2025 Creatinine [Mass/Vol] 1.26 mg/dL High 0.70-1.20 [facility] Serum globulin measurementOr dered By: Kacey Navarro on 01-13-2025 Globulin (S) [Mass/Vol] 2.9 g/dL 2.2-4.2 [facility] Serum glucose measurement (m ass/volume)Ordered By: Kacey Navarro on 01-13-2025 Glucose [Mass/Vol] 115 mg/dL High 70-99 [facility] Serum or plasma alanine mallory otransferase (ALT) measurementOrdered By: Kacey Navarro on 01-13-2025 ALT [Catalytic activity/Vol] 40 U/L <47 [facility] Serum or plasma albumin melanie urement (mass/volume)Ordered By: Kacey Navarro on 01-13-2025 Albumin [Mass/Vol] 4.1 g/dL 3.4-4.8 [facility] Serum or plasma albumin/glob ulin mass ratioOrdered By: Kacey Navarro on 01-13-2025 Albumin/Globulin [Mass ratio] 1.4 {ratio} 0.9-2.4 [facility] Serum or plasma alkaline abelardo sphatase measurementOrdered By: Kacey Navarro on 01-13-2025 ALP [Catalytic activity/Vol] 73 U/L 40-129 [facility] Serum or plasma calcium melanie urement (mass/volume)Ordered By: Kacey Navarro on 01-13-2025 Calcium [Mass/Vol] 9.5 mg/dL 7.6-11.0 [facility] Serum or plasma cholesterol in HDL measurement (mass/volume)Ordered By: Kacey Navarro on 01-13-2025 Cholesterol in HDL [Mass/Vol] 43 mg/dL >40 [facility] Comment on above: National Cholesterol Education Program (NCEP) guidelines:<40 mg/dL: Low HDL-cholesterol (major risk factor for CHD)>= 60 mg/dL: High HDL-cholesterol (negative risk factor for CHD)HDL-cholesterol is affected by a number of factors, e.g. smoking, exercise, hormones, sex and age. Serum or plasma cholesterol measurement (mass/volume)Ordered By: Kacey Navarro on 01-13-2025 Cholesterol [Mass/Vol] 146 mg/dL <201 [facility] Comment on above: Cholesterol level, D esirable <200 mg/dLBorderline high cholesterol 200-239 mg/dLHigh cholesterol >=240 mg/dLRecommendations of the NCEP Adult Treatment Panel for the following risk-cutoff thresholds for the [place] population. Serum or plasma urea nitroge n measurement (mass/volume)Ordered By: Kacey Navarro on 01-13-2025 Urea nitrogen [Mass/Vol] 21 mg/dL High 4-19 [facility] Sodium levelOrdered By: Kacey Navarro on 01-13-2025 Sodium [Moles/Vol] 141 mmol/L 133-145 [facility] Total proteinOrdered By: Todd Navarro on 01-13-2025 Protein [Mass/Vol] 7.0 g/dL 5.9-8.4 [facility] Triglycerides measurementOrd ered By: Kacey Navarro on 01-13-2025 Triglyceride [Mass/Vol] 261 mg/dL High <199 [facility] Comment on above: The drugs N-Acetylcy steine and Metamizole may falsely depress this assay. Normal range: <150 mg/dLBorderline High: 150-199 mg/dLHigh: 200-499 mg/dLVery High: >500 mg/dL Urine protein measurement (m ass/volume)Ordered By: Kacey Navarro on 01-13-2025 Protein (U) [Mass/Vol] 15.0 mg/dL High 0.0-12.0 [facility] Urine protein/creatinine mas s ratioOrdered By: Kacey Navarro on 01-13-2025 Protein/Creatinine (U) [Mass ratio] 182 mg/g CRE 0-200 [facility] Vitamin D,25 Hydroxyon 01-13 Vitamin D 25-OH 47.1 ng/mL Normal 30-100 [facility] Comment on above: Order Comment: Order Date: 01/13/25 Order Info: [id number] - CMP Order Info: [id number] - LIPID Result Comment: Jillian min D Status Deficiency: <20 ng/mL (50nmol/L) Insufficiency: 20-30 ng/mL (50-75 nmol/L) Sufficiency: 30-100 ng/mL (75-250 nmol/L) Toxicity: >100 ng/mL (>250 nmol/L) Performed By: #### L 506.1001, L501.0900 #### [facility] [address] [place], [address] White blood cell (WBC) count Ordered By: Kacey Navarro on 01-13-2025 WBC (Bld) [#/Vol] 6.6 10*3/uL 4.4-11.0 [facility] Bedside Glucoseon 12-25-2024 FINGERSTICK GLU 233 mg/dL High 74-106 [facility] Comment on above: Result Comment: KRANTHI GEMENT OF PATIENT CARE PER NURSING PROTOCOL Performed By: #### L 100.0100, L500.4100, L500.4050, L509.1000 #### [facility] [address] [place], [place], [address] [facility] deOrdered By: Justo Terry on 12-25-2024 Bedside Glucose (Misc Panel) 233 mg/dL High 74-106 [facility] Comment on above: MANAGEMENT OF PATIEN T CARE PER NURSING PROTOCOL Glucose [Mass/Vol] 233 mg/dL High 74-106 [facility] Comment on above: MANAGEMENT OF PATIEN T CARE PER NURSING PROTOCOL MR/POSTOP.ANEon 12-25-2024 MR/POSTOP.[facility] Medical Records Department [address] [place] [address] Anesthesia Postop Eval I 12/25/24 1239 MR#: [id number] Acct: [id number] Name: VLAD SIDDIQI Rep #: [id number] : 1960 64 From: Jose Chung MD PCP: Dr. Kacey Navarro MD Status:[facility] Y Race: C Location: [facility] Anesthesia: Postop Eval I Current Vital Signs Temperature: 97.4 F Pulse Rate: 75 Blood Pressure: 138/80 Respiratory Rate: 14 Pulse Ox: 99 Oxygen Delivery Method: Simple Mask Oxygen Flow Rate (L/min): 8 Assessment Airway patent: Yes Spontaneous unlabored respirations: Yes nausea: No Vomiting: No Anesthesia Complication: No Fluid Hydration Crystalloid volume administer (ml): 1,500 Total IV fluid infused: 1,500 Progress Note Anesthesia document: Postop Eval 1 completed: Yes 12/25/242113 Date Jose Chung MD Cosigner Signature: Date CC: Signed Normal [facility] MR/[id number] 12-25-2024 [facility] Medical Records Department [address] [place] [address] Anesthesia Postop Eval II 12/25/242113 MR#: [id number] Acct: [id number] Name: VLAD SIDDIQI Rep #: [id number] : 1960 64 From: Jose Chung MD PCP: Dr. Kacey Navarro MD Status:[facility]IS[facility] Y Race: C Location: [facility] Anesthesia Postop Eval I Sum Postop Eval Completion status Anesthesia document: Postop Eval 1 completed: Yes Anesthesia Postop Eval I Summary Anesthesia Postop Eval I Summary: Anesthesia Postop Eval I: Assessment Summary Airway patent Yes 12/25/24 21:14 Spontaneous unlabored Yes 12/25/24 21:14 respirations Mental status nausea No 12/25/24 21:14 Vomiting No 12/25/24 21:14 Anesthesia Postop Eval I: Fluid Summary Crystalloid volume administer 1,500 12/25/24:14 (ml) Colloids volume administered ( ml) Blood Product volume administered (ml) Total IV fluid infused 1,500 12/25/24 21:14 Anesthesia Postop Eval I: Summary Notes Anesthesia Complication No 12/25/24 21:14 Anesthesia Complication Comment: Post-operative progress note Anesthesia: Postop Eval II Evaluation Mental status: Awake and Calm Pain Level: 1 nausea: No Vomiting: No Complications Anesthesia Complication: No 12/25/242113 Date Jose Campo Signature: Date CC: Signed Normal [facility] Operative Reporton 5 Operative Report [facility] Medical Records Department [address] [place] [address] Operative Report 12/25/24 1257 MR#: [id number] Acct: [id number] Name: VLAD SIDDIQI Rep #: [id number] : 1960 64 From: Justo Terry DO PCP: Dr. Kacey Navarro MD Status:[facility] Location: [place] [address] Operative Report (Standard) Operative Information Date of Procedure: 12/25/24 Pre-Operative Diagnosis: 1. Massive right rotator cuff tear 2. Right shoulder long head of biceps tendinosis Post-Operative Diagnosis: 1. Massive right rotator cuff tear 2. Right shoulder long head of biceps tendinosis Surgery/Procedure Performed: Right shoulder arthroscopic rotator cuff repair and biceps tenodesis behavioral health clinician: Yes Surfacer Operator: Jacquie Romero Tasks completed by surgical first assistant: Opening closing and Implanting device Additional pastrycook's assistant?: No Type of Anesthesia: General/Regional RN Documented Start/Stop Times: Operation Date: 12/25/24 10:05 Case Time Into Pre-Op 12/25/24 08:27 Anesthesia Start 12/25/24 10:13 Into Room 12/25/24 10:13 Out of Pre-Op 12/25/24 10:13 Procedure Start 12/25/24 10:50 Procedure End 12/25/24 12:30 Anesthesia End 12/25/24 12:39 Into Recovery 12/25/24 12:39 Out of Room 12/25/24 12:39 Procedure Start Time: 10:50 Procedure Stop Time: 12:30 Select all DRAINS/GRAFTS/IMPLANTS that apply: Implanted device Implanted device details: [employer]rex self punching bio composite swivel lock anchor x 3, fiber tack RC anchor x 2 Estimated Blood Loss: 10 cc Specimen collected: No Description of surgery: Patient was identified in the preoperative holding area by name, medical record number, and date of . The operative extremity was marked. All questions were answered to the patient satisfaction. Interscalene block was then administered by anesthesia staff. At time of his procedure, patient was brought to the operative suite and positioned supine on a standard operating table. General anesthesia was induced and endotracheal tube placed and secured. Patient was then placed in the lateral decubitus position with the right side up. He was held in place with a beanbag. All bony prominences were well-padded. An axillary roll was placed. We spun the bed 45 degrees. We then prepped and draped the right upper extremity in a normal, sterile orthopedic fashion. A timeout was then performed confirming the side, site, and operation to be performed. No concerns were voiced and we elected to proceed with surgery. 3 g Ancef was administered IV prior to incision by anesthesia staff. Right upper extremity was placed in arthroscopic traction with 15 pounds of traction force applied to the right arm throughout the arthroscopic portion of the case approximately 1-1/2 hours. Standard posterior portal was made 2 fingerbreadths inferior medial posterior border scapular spine. Blunt tipped trocar was used to puncture the glenohumeral joint. The joint was filled with normal saline with epinephrine. The arthroscope was then introduced. Capsulitis was noted. Fraying at the superior labrum was noted without obvious unstable biceps anchor. The intra-articular portion of biceps tendon was pristine. Subscapularis fraying was noted. Massive rotator cuff tear was noted with a bare footprint minus a small oil area of tendon stump remaining at the supraspinatus footprint. Glenohumeral cartilage was pristine. Given the size of tear elected to proceed with a biceps rerouting type tenodesis to reinforce our repair. I freed the coracohumeral ligament and biceps sheath in the intertubercular groove to mobilize the tendon laterally. I established an anterior superior lateral portal and a lateral portal for suture management. I then placed 2 Medial Row fiber tack anchors via percutaneous portal along the chondral margin of the humeral head approximate 1 cm apart. The anteriormost anchor was a knotless anchor and I used the repair suture of the knotless mechanism to perform a tenodesis of the biceps. The tendon was weaved with the FiberWire with a scPredictifyion suture passer and then passed through the knotless mechanism reducing the biceps well to the anterior portion of the rotator cuff cable remnant. The remaining conjoint sutures from both medial row anchors were then passed sequentially through the musculotendinous junction of the supra and anterior portion of the infraspinatus. The conjoint sutures were then cut and a single limb was passed laterally through the eyelet of a swivel lock anchor. Sutures were tensioned and first posterior and then anterior lateral anchors were placed. There is excellent reapproximation and compression of the rotator cuff at its [place] footprint. The infraspinatus demonstrated a small area of not reduced tissue which was subsequently reduced with a inverted mattress fiber tape suture anteriorly an additional swivel l (more content not included)... Normal [facility] Electrocardiogram reportOrde red By: Prakash Ortega on 12-19-2024 EKG study [facility] Cardiovascular Services [address] [place] [address] 12 Lead EKG 12/18/24 1001 MR#: [id number] Acct: [id number] Name: VLAD SIDDIQI Rep #:[id number] : 1960 64 From: Prakash Ortega MD Attending Dr: Dr. Justo Terry, Status: PRE [facility] Ordering Dr: Justo Terry DO Date: 12/18/24 Location: [facility] Sex: M C Admitted: Test Reason : PRE OP Blood Pressure : */* mmHG Vent. Rate : 90 BPM Atrial Rate : 90 BPM P-R Int : 126 ms QRS Dur : 118 ms QT Int : 358 ms P-R-T Axes : 39 14 41 degrees QTcB Int : 437 ms Normal sinus rhythm Incomplete right bundle branch block Borderline ECG Confirmed by ANNA GARCIA, PRAKASH ([id number]), editor greeting card SANDY OSPINA ([id number]) on 57:01:18 AM Referred By: Justo Terry Confirmed By: PRAKASH ORTEGA MD 12/19/24 0701 Date _ Prakash Ortega MD CC: Dr. Kacey Navarro MD; Dr. Justo Terry, DO ~ Signed [facility] Work Phone: MR/MARKrach 12-19-2024 MR/[facility] Medical Records Department [address] [place] [address] PAT - Anesthesia 12/19/24 1101 MR#: [id number] Acct: [id number] Name: VLAD SIDDIQI Rep #: [id number] : 1960 64 From: Wood Peralta MD PCP: Dr. Kacey Navarro MD Status:PRE [facility] Y Race: C Location: [facility] Pre-Assessment Diagnosis/Proposed Procedure Planned Operative Procedure(s): Right shoulder arthroscopic rotator cuff repair and mini open biceps tenodesis. 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 When Was Last Pacemaker Check QUESTION #4 FULL TEXT: You/Your Family Experience fever (hyperthermia) with Anesthesia Last Oral Intake Last Oral intake: Last Oral Intake NPO since Meds taken in AM with sips of water? 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 Has anyone observed you stop breathing during sleep? STOP Results Positive 12/15/24 15:07 QUESTION #5 FULL TEXT : Do you snore loudly (louder than talking or can be heard through closed doors)? 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 Specify any problems Hx of Preganancy in last 3 N/A 12/15/24 15:07 Months Nurse Filling Out Transfusion DSCHRIBER 12/15/24 15:07 Questions: Date: 12/15/24 12/15/24 15:07 Time: 15:08 12/15/24 15:07 Patient unable to answer at this time (ie. 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: /Reproductive Hx- metal drill operator Hx Now No 12/15/24 15:07 Gestational Age (in weeks): EDC: Hx Hx Para Hx Section SAB No 12/15/24 15:07 [facility] Medical History (Updated 12/15/24 @ 15:14 by Sunitha Crowley) Wears glasses Insulin dependent diabetes mellitus History of renal disease Fatty liver High cholesterol Restless legs Dietary restriction Non-smoker CPAP (continuous positive airway pressure) dependence Shortness of breath on exertion History of pain when walking History of stress test Degenerative joint disease (DJD) of lumbar spine Low back pain GERD (gastroesophageal reflux disease) Neuropathy Asthma Arthritis HTN (hypertension) Home Medications ???Medication ???Instructions ???Recorded ???Last Taken ???Type aspirin 81 mg tablet,delayed 81 mg PO DAILY 04/01/20 Unknown Hi story release (Adult Aspirin Regimen) atorvastatin 20 mg tablet 20 mg PO QHS 04/01/20 Unknown Hist ory multivitamin (Daily Multi-Vitamin 1 tab PO DAILY 04/01/20 Unknown H istory tablet) acetaminophen 500 mg tablet 1,000 mg PO TID 08 (more content not included)... Normal [facility] 12 Lead EKGon 12-18-2024 12 Lead EKG [facility] Cardiovascular Services [address] [place] [address] 12 Lead EKG 12/18/24 1001 MR#: [id number] Acct: [id number] Name: VLAD SIDDIQI Rep #: [id number] : 1960 64 From: Prakash Ortega MD Attending Dr: Dr. Justo Terry DO Status: PRE [facility] Ordering Dr: Justo Terry DO Date: 12/18/24 Location: [facility] Sex: M C Admitted: Test Reason : PRE OP Blood Pressure : */* mmHG Vent. Rate : 90 BPM Atrial Rate : 90 BPM P-R Int : 126 ms QRS Dur : 118 ms QT Int : 358 ms P-R-T Axes : 39 14 41 degrees QTcB Int : 437 ms Normal sinus rhythm Incomplete right bundle branch block Borderline ECG Confirmed by ANNA GARCIA, PRAKASH ([id number]), editor greeting card SANDY OSPINA ([id number]) on 12/19/2024 7:01:18 AM Referred By: Justo Terry Confirmed By: PRAKASH ORTEGA MD 12/19/24 0701 Date Prakash Ortega MD CC: Dr. Kacey Navarro MD; Dr. Justo Terry, DO Signed [facility] MR/PAT.ANASTACIO 12-18-2024 MR/PAT.[facility] Medical Records Department [address] [place] [address] PAT - Anesthesia 12/18/24 1635 MR#: [id number] Acct: [id number] Name: VLAD SIDDIQI Rep #: [id number] : 1960 64 From: Jose Chung MD PCP: Dr. Kacey Navarro MD Status:PRE [facility] Y Race: C Location: [facility] Pre-Assessment Diagnosis/Proposed Procedure Planned Operative Procedure(s): Right shoulder arthroscopic rotator cuff repair and mini open biceps tenodesis. 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 When Was Last Pacemaker Check QUESTION #4 FULL TEXT: You/Your Family Experience fever (hyperthermia) with Anesthesia Last Oral Intake Last Oral intake: Last Oral Intake NPO since Meds taken in AM with sips of water? 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 Has anyone observed you stop breathing during sleep? STOP Results Positive 12/15/24 15:07 QUESTION #5 FULL TEXT : Do you snore loudly (louder than talking or can be heard through closed doors)? 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 Specify any problems Hx of Preganancy in last 3 N/A 12/15/24 15:07 Months Nurse Filling Out Transfusion DSCHRIBER 12/15/24 15:07 Questions: Date: 12/15/24 12/15/24 15:07 Time: 15:08 12/15/24 15:07 Patient unable to answer at this time (ie. 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: /Reproductive Hx- metal drill operator Hx Now No 12/15/24 15:07 Gestational Age (in weeks): EDC: Hx Hx Para Hx Section SAB No 12/15/24 15:07 [facility] Medical History (Updated 12/15/24 @ 15:14 by Sunitha Crowley) Wears glasses Insulin dependent diabetes mellitus History of renal disease Fatty liver High cholesterol Restless legs Dietary restriction Non-smoker CPAP (continuous positive airway pressure) dependence Shortness of breath on exertion History of pain when walking History of stress test Degenerative joint disease (DJD) of lumbar spine Low back pain GERD (gastroesophageal reflux disease) Neuropathy Asthma Arthritis HTN (hypertension) Home Medications ???Medication ???Instructions ???Recorded ???Last Taken ???Type aspirin 81 mg tablet,delayed 81 mg PO DAILY 04/01/20 Unknown Hi story release (Adult Aspirin Regimen) atorvastatin 20 mg tablet 20 mg PO QHS 04/01/20 Unknown Hist ory multivitamin (Daily Multi-Vitamin 1 tab PO DAILY 04/01/20 Unknown H istory tablet) acetaminophen 500 mg tablet 1,000 mg PO T (more content not included)... Normal [facility] Absolute lymphocyte countOrd ered By: Justo Terry on 12-11-2024 Lymphocytes Auto (Unsp spec) [#/Vol] 1.88 10*3/uL 0.83-4.51 [facility] Absolute neutrophil countOrd ered By: Justo Terry on 12-11-2024 Neutrophils (Bld) [#/Vol] 4.8 10*3/uL 2.0-7.7 [facility] Albumin, Serumon 12-11-2024 Albumin [Mass/Vol] 4.5 g/dL Normal 3.4-4.8 [facility] Comment on above: Performed By: #### L 100.0100, L501.9985, L500.2500, L501.1800 #### [facility] Laboratory [address] [place], [address] Anion gap in Serum or Plasma Ordered By: Justo Terry on 12-11-2024 Anion gap [Moles/Vol] 12 mmol/L 5-15 [facility] Automated lymphocyte count a s percentage of total leukocytesOrdered By: Justo Terry on 12-11-2024 Lymphocytes/100 WBC Auto (Unsp spec) 25.0 % 19-41 [facility] BUN/creatinine ratioOrdered By: Justo Terry on 12-11-2024 Urea nitrogen/Creatinine [Mass ratio] 18.7 mg/mg - [facility] Basic Metabolic Profile (BMP )on 12-11-2024 BUN/CRE 18.7 RATIO Normal - [facility] Comment on above: Performed By: #### L 100.0100, L501.9985, L500.2500, L501.1800 #### [facility] Laboratory [address] [place], [address] Calcium [Mass/Vol] 9.5 mg/dL Normal 7.6-11.0 [facility] Comment on above: Performed By: #### L 100.0100, L501.9985, L500.2500, L501.1800 #### [facility] [address] [place], [address] Chloride [Moles/Vol] 105 mmol/L Normal 98-108 [facility] Comment on above: Performed By: #### L 100.0100, L501.9985, L500.2500, L501.1800 #### [facility] [address] [place], [address] CO2 [Moles/Vol] 23.6 mmol/L Normal 21.0-32.0 [facility] Comment on above: Performed By: #### L 100.0100, L501.9985, L500.2500, L501.1800 #### [facility] [address] [place], [address] Creatinine [Mass/Vol] 1.28 mg/dL High 0.70-1.20 [facility] Comment on above: Performed By: #### L 100.0100, L501.9985, L500.2500, L501.1800 #### [facility] [address] [place], [address] GAP 12 Normal 5-15 [facility] Comment on above: Performed By: #### L 100.0100, L501.9985, L500.2500, L501.1800 #### [facility] [address] [place], [address] GFR/1.73 sq M.predicted among non-blacks MDRD (S/P/Bld) [Vol rate/Area] 62 mL/min/{1.73_m2} Normal >60 [facility] Comment on above: Result Comment: mL/m in/1.73m2 CKD-EPI Creatinine Equation (2020) Performed By: #### L 100.0100, L501.9985, L500.2500, L501.1800 #### [facility] [address] [place], [address] Glucose [Mass/Vol] 108 mg/dL High 70-99 [facility] Comment on above: Performed By: #### L 100.0100, L501.9985, L500.2500, L501.1800 #### [facility] [address] [place], [address] Potassium [Moles/Vol] 4.1 mmol/L Normal 3.3-5.1 [facility] Comment on above: Performed By: #### L 100.0100, L501.9985, L500.2500, L501.1800 #### [facility] [address] [place], [address] Sodium [Moles/Vol] 140 mmol/L Normal 133-145 [facility] Comment on above: Performed By: #### L 100.0100, L501.9985, L500.2500, L501.1800 #### [facility] [address] [place], [address] Urea nitrogen [Mass/Vol] 24 mg/dL High 4-19 [facility] Comment on above: Performed By: #### L 100.0100, L501.9985, L500.2500, L501.1800 #### [facility] [address] [place], [address] Basophil percentageOrdered B y: Justo Terry on 12-11-2024 Basophils/100 WBC (Bld) 0.8 % 0-1 [facility] CBC W/Diff, Automatedon Absolute Lymph 1.88 X10 3/uL Normal 0.83-4.51 [facility] Comment on above: Performed By: #### L 100.0100, L501.9985, L500.2500, L501.1800 #### [facility] [address] [place], [address] Absolute Neut 4.8 X10 3/uL Normal 2.0-7.7 [facility] Comment on above: Performed By: #### L 100.0100, L501.9985, L500.2500, L501.1800 #### [facility] [address] [place], [address] Basophils/100 WBC (Bld) 0.8 % Normal 0-1 [facility] Comment on above: Performed By: #### L 100.0100, L501.9985, L500.2500, L501.1800 #### [facility] [address] [place], [address] Eosinophils/100 WBC (Bld) 2.3 % Normal 0-5 [facility] Comment on above: Performed By: #### L 100.0100, L501.9985, L500.2500, L501.1800 #### [facility] [address] [place], [address] Erythrocyte distribution width (RBC) [Ratio] 12.3 % Normal 11.6-14.6 [facility] Comment on above: Performed By: #### L 100.0100, L501.9985, L500.2500, L501.1800 #### [facility] [address] [place], [address] Hematocrit (Bld) [Volume fraction] 48.2 % Normal 40-54 [facility] Comment on above: Performed By: #### L 100.0100, L501.9985, L500.2500, L501.1800 #### [facility] [address] [place], [address] Hemoglobin (Bld) [Mass/Vol] 16.3 g/dL Normal 13.0-16.5 [facility] Comment on above: Performed By: #### L 100.0100, L501.9985, L500.2500, L501.1800 #### [facility] [address] [place], [address] IG% 0.400 Normal 0.0-0.9 [facility] Comment on above: Result Comment: IG% - Immature Granulocytes (promyelocytes, myelocytes and metamyelocytes) > 1% indicates that a LEFT SHIFT is Present. Performed By: #### L 100.0100, L501.9985, L500.2500, L501.1800 #### [facility] [address] [place], [address] Lymphocytes/100 WBC (Bld) 25.0 % Normal 19-41 [facility] Comment on above: Performed By: #### L 100.0100, L501.9985, L500.2500, L501.1800 #### [facility] [address] [place], [address] MCH (RBC) [Entitic mass] 31.1 pg Normal 27.0-32.0 [facility] Comment on above: Performed By: #### L 100.0100, L501.9985, L500.2500, L501.1800 #### [facility] [address] [place], [address] MCHC (RBC) [Mass/Vol] 33.8 g/dL Normal 32-36 [facility] Comment on above: Performed By: #### L 100.0100, L501.9985, L500.2500, L501.1800 #### [facility] [address] [place], [address] MCV (RBC) [Entitic vol] 92.0 fL Normal 80-94 [facility] Comment on above: Performed By: #### L 100.0100, L501.9985, L500.2500, L501.1800 #### [facility] [address] [place], [address] Monocytes/100 WBC (Bld) 7.6 % Normal 0-10 [facility] Comment on above: Performed By: #### L 100.0100, L501.9985, L500.2500, L501.1800 #### [facility] [address] [place], [address] Neutrophils/100 WBC (Bld) 63.9 % Normal 47-70 [facility] Comment on above: Performed By: #### L 100.0100, L501.9985, L500.2500, L501.1800 #### [facility] [address] [place], [address] Nucleated RBC (Bld) [#/Vol] 0 10*3/uL Normal 0-5 [facility] Comment on above: Performed By: #### L 100.0100, L501.9985, L500.2500, L501.1800 #### [facility] [address] [place], [address] Platelet mean volume (Bld) [Entitic vol] 8.5 fL Normal 6.2-12.0 [facility] Comment on above: Performed By: #### L 100.0100, L501.9985, L500.2500, L501.1800 #### [facility] [address] [place], [address] Platelets (Bld) [#/Vol] 196 10*3/uL Normal 150-450 [facility] Comment on above: Performed By: #### L 100.0100, L501.9985, L500.2500, L501.1800 #### [facility] [address] [place], [address] RBC (Bld) [#/Vol] 5.24 10*6/uL Normal 4.6-6.2 [facility] Comment on above: Performed By: #### L 100.0100, L501.9985, L500.2500, L501.1800 #### [facility] [address] [place], [address] RDW SD 41.6 fl Normal 35.1-43.9 [facility] Comment on above: Performed By: #### L 100.0100, L501.9985, L500.2500, L501.1800 #### [facility] [address] [place], [address] WBC (Bld) [#/Vol] 7.5 10*3/uL Normal 4.4-11.0 [facility] Comment on above: Performed By: #### L 100.0100, L501.9985, L500.2500, L501.1800 #### [facility] [address] [place], [address] Carbon dioxide, total [Moles /volume] in Central venous bloodOrdered By: Justo Terry on 12-11-2024 CO2 [Moles/Vol] 23.6 mmol/L 21.0-32.0 [facility] Chloride assayOrdered By: Joanne Terry on 12-11-2024 Chloride [Moles/Vol] 105 mmol/L 98-108 [facility] Eosinophil percentageOrdered By: Justo Terry on 12-11-2024 Eosinophils/100 WBC (Bld) 2.3 % 0-5 [facility] Erythrocyte distribution wid th (RBC) [Ratio]Ordered By: Justo Terry on 12-11-2024 Erythrocyte distribution width (RBC) [Entitic vol] 41.6 fL 35.1-43.9 [facility] Erythrocyte distribution wid th ratioOrdered By: Justo Terry on 12-11-2024 Erythrocyte distribution width (RBC) [Ratio] 12.3 % 11.6-14.6 [facility] Erythrocyte distribution wid th standard deviationOrdered By: Justo Terry on 12-11-2024 Erythrocyte distribution width (RBC) [Ratio] 41.6 fl 35.1-43.9 [facility] GFR/1.73 sq M.predicted erna g non-blacks MDRD (S/P/Bld) [Vol rate/Area]Ordered By: Justo Terry on 12-11-2024 Estimated GFR (MDRD) Non-Af Amer 62 >60 [facility] Comment on above: mL/min/1.73m2 CKD-EP I Creatinine Equation (2020) Glomerular filtration rate ( GFR) estimation/1.73 sq m using serum, plasma, or whole bOrdered By: Justo Terry on 12-11-2024 GFR/1.73 sq M.predicted among non-blacks MDRD (S/P/Bld) [Vol rate/Area] 62 mL/min/{1.73_m2} >60 [facility] Comment on above: mL/min/1.73m2 CKD-EP I Creatinine Equation (2020) Hematocrit Auto (Bld) [Volum e fraction]Ordered By: Justo Terry on 12-11-2024 Hematocrit (Bld) [Volume fraction] 48.2 % 40-54 [facility] Hemoglobin A1con 12-11-2024 HbA1c (Bld) [Mass fraction] 7.1 % Normal <=5.6 [facility] Comment on above: Performed By: #### L 100.0100, L501.9985, L500.2500, L501.1800 #### [facility] [address] [place], [place], [id number] Hemoglobin A1c percentageOrd ered By: Justo Terry on 12-11-2024 HbA1c (Bld) [Mass fraction] 7.1 % >5.7 [facility] Hemoglobin measurementOrdere d By: Justo Terry on 12-11-2024 Hemoglobin (Bld) [Mass/Vol] 16.3 g/dL 13.0-16.5 [facility] Immature granulocytes/100 WB C Auto (Bld)Ordered By: Justo Terry on 12-11-2024 Immature granulocytes/100 WBC (Bld) 0.400 % 0.0-0.9 [facility] Comment on above: IG% - Immature Granu locytes (promyelocytes, myelocytes and metamyelocytes) > 1% indicates that a LEFT SHIFT is Present. Lymphocytes Auto (Unsp spec) [#/Vol]Ordered By: Justo Terry on 12-11-2024 Lymphocytes (Bld) [#/Vol] 1.88 10*3/uL 0.83-4.51 [facility] Lymphocytes/100 WBC Auto (Un sp spec)Ordered By: Justo Terry on 12-11-2024 Lymphocytes/100 WBC (Bld) 25.0 % 19-41 [facility] MCV (mean corpuscular volume ) determinationOrdered By: Justo Terry on 12-11-2024 MCV (RBC) [Entitic vol] 92.0 fL 80-94 [facility] Mean corpuscular hemoglobin (MCH) determinationOrdered By: Justo Terry on 12-11-2024 MCH (RBC) [Entitic mass] 31.1 pg 27.0-32.0 [facility] Mean corpuscular hemoglobin concentration (MCHC) determinationOrdered By: Justo Terry on 12-11-2024 MCHC (RBC) [Mass/Vol] 33.8 g/dL 32-36 [facility] Mean platelet volume determi nationOrdered By: Justo Terry on 12-11-2024 Platelet mean volume (Bld) [Entitic vol] 8.5 fL 6.2-12.0 [facility] Monocyte percentageOrdered B y: Justo Terry on 12-11-2024 Monocytes/100 WBC (Bld) 7.6 % 0-10 [facility] Neutrophil percentageOrdered By: Justo Terry on 12-11-2024 Neutrophils/100 WBC (Bld) 63.9 % 47-70 [facility] Nucleated red blood cell per centageOrdered By: Justo Terry on 12-11-2024 Nucleated RBC/100 WBC (Bld) [Ratio] 0 % 0-5 [facility] Platelet countOrdered By: Joanne Terry on 12-11-2024 Platelets (Bld) [#/Vol] 196 10*3/uL 150-450 [facility] Potassium (Unsp spec) [Mass/ Vol]Ordered By: Justo Terry on 12-11-2024 Potassium [Moles/Vol] 4.1 mmol/L 3.3-5.1 [facility] Potassium measurement (mass/ volume)Ordered By: Justo Terry on 12-11-2024 Potassium (Unsp spec) [Mass/Vol] 4.1 mmol/L 3.3-5.1 [facility] RBC Auto (Bld) [#/Vol]Ordere d By: Justo Terry on 12-11-2024 RBC (Bld) [#/Vol] 5.24 10*6/uL 4.6-6.2 [facility] Serum creatinine measurement (mass/volume)Ordered By: uJsto Terry on 12-11-2024 Creatinine [Mass/Vol] 1.28 mg/dL High 0.70-1.20 [facility] Serum glucose measurement (m ass/volume)Ordered By: Justo Terry on 12-11-2024 Glucose [Mass/Vol] 108 mg/dL High 70-99 [facility] Serum or plasma albumin melanie urement (mass/volume)Ordered By: Justo Terry on 12-11-2024 Albumin [Mass/Vol] 4.5 g/dL 3.4-4.8 [facility] Serum or plasma calcium melanie urement (mass/volume)Ordered By: Justo Terry on 12-11-2024 Calcium [Mass/Vol] 9.5 mg/dL 7.6-11.0 [facility] Serum or plasma urea nitroge n measurement (mass/volume)Ordered By: Justo Terry on 12-11-2024 Urea nitrogen [Mass/Vol] 24 mg/dL High 4-19 [facility] Sodium levelOrdered By: Ariel Terry on 12-11-2024 Sodium [Moles/Vol] 140 mmol/L 133-145 [facility] White blood cell (WBC) count Ordered By: Justo Terry on 12-11-2024 WBC (Bld) [#/Vol] 7.5 10*3/uL 4.4-11.0 [facility] MRI SHOULDER W/O CONTRAST ELMER Day 11-19-2024 MRI SHOULDER W/O CONTRAST RIGHT ORIGINAL EXAMINATION: MRI OF THE RIGHT SHOULDER WITHOUT CONTRAST 11/19/2024 11:39 am TECHNIQUE: Multiplanar multisequence MRI of the right shoulder was performed without the administration of intravenous contrast. COMPARISON: None. HISTORY: ORDERING SYSTEM PROVIDED HISTORY: Reason for Exam: Other sprain of right shoulder joint, initial encounter FINDINGS: Suboptimal patient positioning degrades evaluation. There is no evidence of acute fracture, osteonecrosis or suspicious marrow lesion. Diffuse marrow heterogeneity on the basis of red marrow reconversion. The acromioclavicular joint appears intact with moderate degenerative change. Some fluid and increased signal is seen in the AC joint. A type 2 acromial undersurface is seen. The coracoclavicular and coracoacromial ligaments are intact. There is subacromial subdeltoid bursitis. Full-thickness full width supraspinatus tendon tear which is retracted to the proximal humeral head up to approximately 4 cm. The torn retracted fibers are thickened and frayed with increased signal related to tendinosis. There is fluid in the subcoracoid bursa and small glenohumeral joint effusion with synovitis.. Full-thickness full width infraspinatus tendon tear. The teres minor at its attachment is difficult to evaluate, appears intact however there is some low-grade increased signal which could be related to tendinosis/strain. Subscapularis tendinosis with interstitial tearing, small sentinel cyst at the musculotendinous junction measuring approximately 0.5 x 0.3 cm. The long head of the biceps tendon is maintained in anatomic location. There is biceps tendinosis and tenosynovitis. The intra-articular horizontal portion of the long head of biceps tendon is suboptimally visualized. There is no biceps tenosynovitis. There is no acute Hill-Sacks or Bankart lesion. The labrum is suboptimally evaluated due to lack of intra-articular contrast and decreased signal to noise ratio due to patient positioning. Difficult to evaluate the cartilage of the glenohumeral joint with lack of intra-articular contrast. The suprascapular notch as well as the quadrilateral space have preserved fat planes. Question a spinal glenoid notch cyst measuring 0.4 cm (series 9, image 21). There is no severe muscle atrophy. There is some nonspecific increased intramuscular signal within the supraspinatus, infraspinatus muscle bellies and acromial portion of the deltoid. There is intramuscular and intermuscular fluid surrounding a portion of the acromial part of the deltoid muscle, suspected interstitial/musculoten dinous junction tearing. There is diffuse obliteration of the fat within the rotator interval. Thickening of the inferior glenohumeral ligaments and inferior axillary pouch. IMPRESSION: 1. Suboptimal patient positioning degrades evaluation. 2. Massive rotator cuff tear secondary to full-thickness full width supraspinatus tendon tear with retraction to the proximal humeral head and full-thickness full width infraspinatus tendon tear. Subscapularis tendinosis with interstitial tearing and sentinel cyst dissecting to the musculotendinous junction. Strain and or tendinosis of the teres minor without full-thickness tear. Subacromial, subdeltoid and subcoracoid bursitis with small glenohumeral joint effusion with synovitis. Additionally there is some fluid seen in the AC joint which may suggest capsular disruption. 3. Biceps tendinosis and tenosynovitis. The proximal horizontal portion at the biceps labral anchor is difficult to evaluate. 4. Nonspecific increased intramuscular signal within the supraspinatus, infraspinatus muscle bellies and acromial portion of the deltoid which could be related to acute muscle strain versus denervation change. There is intramuscular and intermuscular fluid surrounding a portion of the acromial part of the deltoid muscle, suspected proximal interstitial/musculoten dinous junction tearing from its acromial attachment. 5. Diffuse obliteration of the fat within the rotator interval. Thickening of the inferior glenohumeral ligaments and inferior axillary pouch. Findings can be seen with adhesive capsulitis. 6. Suboptimal evaluation labrum with lack of intra-articular contrast. There is a queried spinal glenoid notch cyst measuring approximately 5 mm which may suggest underlying labral tearing. Additionally this can impinge upon the suprascapular nerve which can cause secondary denervation changes in the rotator cuff muscles. 7. Additional incidental findings as above. Interpreted by: Prabha Harden Preliminary Report By: Prabha Harden Electronically signed By Prabha Harden Dictated Date: 11/19/2024 12:26:42 PM Prelim Date: 11/19/2024 1:10:04 PM Sign Date: 11/19/2024 1:10:04 PM Ordering Provider: JACQUIE ROMERO Normal [facility] PSA Total+%Freeon 11-19-2024 PSA, FREE 1.47 ng/mL Normal N/A [facility] Comment on above: Result Comment: Sandee CRENSHAW methodology. Performed By: #### L 100.0100, L500.4100, L500.4050, L509.1000 #### [facility] [address] [place], [place], [id number] (029) PSA, FREE % 28.9 Normal . [facility] Comment on above: Result Comment: The table below lists the probability of prostate cancer for men with non-suspicious JULISSA results and total PSA between 4 and 10 ng/mL, by patient age (Landon et al, BE 1998, 279:1542). % Free PSA 50-64 yr 65-75 yr 0.00-10.00% 56% 55% 10.01-15.00% 24% 35% 15.01-20.00% 17% 23% 20.01-25.00% 10% 20% >25.00% 5% 9% Please note: Landon et al did not make specific recommendations regarding the use of percent free PSA for any other population of men. Performed at: [facility] Lab[address] [id number] [employer] Print[employer] Paster: Santana Doran PhD, Phone: [phone] Performed By: #### L 100.0100, L500.4100, L500.4050, L509.1000 #### [facility] [address] [place], [place], [id number] PSA, TOTAL ULTR 5.090 ng/mL Abnormal 0.000-4.000 [facility] Comment on above: Result Comment: Roch e ECLIA methodology. According to the [employer] [employer], Serum PSA should decrease and remain at undetectable levels after radical prostatectomy. The AUA defines biochemical recurrence as an initial PSA value 0.200 ng/mL or greater followed by a subsequent confirmatory PSA value 0.200 ng/mL or greater. Values obtained with different assay methods or kits cannot be used interchangeably. Results cannot be interpreted as absolute evidence of the presence or absence of malignant disease. Performed By: #### L 100.0100, L500.4100, L500.4050, L509.1000 #### [facility] [address] [place], [address] Free PSA/Total PSA [Mass fra ction]Ordered By: Mauricio Morales on 11-18-2024 % Free Prostate Specific Ag Calc 28.9 % . [facility] Comment on above: The table below list s the probability of prostate cancer formen with non-suspicious JULISSA results and total PSA between4 and 10 ng/mL, by patient age (Landon et al, BE 1998,279:1542). % Free PSA 50-64 yr 65-75 yr 0.00-10.00% 56% 55% 10.01-15.00% 24% 35% 15.01-20.00% 17% 23% 20.01-25.00% 10% 20% >25.00% 5% 9%Please note: Landon et al did not make specific recommendations regarding the use of percent free PSA for any other population of men.Performed at: [address] [id number] Director: Santana Doran PhD, Phone: [phone] Free prostate specific antig en (PSA) measurementOrdered By: Mauricio Morales on 11-18-2024 Free Prostate Specific Antigen 1.47 ng/mL N/A [facility] Comment on above: Amanuel ECLIA methodol ogy. PSA, totalOrdered By: Mauricio simpson on 11-18-2024 Prostate Specific Ag, Ultra-Sensitv 5.090 ng/mL High 0.000-4.000 [facility] Comment on above: Amanuel ECLIA methodol ogy.According to the [place] [employer], Serum PSAshould decrease and remain at undetectable levels afterradical prostatectomy. The AUA defines biochemicalrecurrence as an initial PSA value 0.200 ng/mL or greaterfollowed by a subsequent confirmatory PSA value 0.200 ng/mLor greater. Values obtained with different assay methods orkits cannot be used interchangeably. Results cannot beinterpreted as absolute evidence of the presence or absenceof malignant disease. Serum or plasma free prostat e specific antigen (PSA)/total PSA mass ratioOrdered By: Mauricio Morales on 11-18-2024 Free PSA/Total PSA [Mass fraction] 28.9 % . [facility] Comment on above: The table below list s the probability of prostate cancer formen with non-suspicious JULISSA results and total PSA between4 and 10 ng/mL, by patient age (Landon et al, BE 1998,279:1542). % Free PSA 50-64 yr 65-75 yr 0.00-10.00% 56% 55% 10.01-15.00% 24% 35% 15.01-20.00% 17% 23% 20.01-25.00% 10% 20% >25.00% 5% 9%Please note: Landon et al did not make specific recommendations regarding the use of percent free PSA for any other population of men.Performed at: [facility] [id number] Director: Santana Dorna PhD, Phone: [phone] PSA,Total - Annual Screenon 10-08-2024 PSA,TOT SCREEN 4.97 ng/mL High 0.00-4.00 [facility] Comment on above: Result Comment: This test was performed using the TPSA assay method for the [employer] chemistry system. Values obtained with different assay methods cannot be used interchangably. When changing PSA assays in the course of monitoring a patient, additional sequential testing should be carried out to confirm baseline values. Performed By: #### L 100.0100, L500.4100, L500.4050, L509.1000 #### [facility] [address] [place], [address] Screening prostate specific antigen (PSA) measurementOrdered By: Kacey Navarro on 10-08-2024 Prostate Specific Antigen Screen 4.97 ng/mL High 0.00-4.00 [facility] Comment on above: This test was perfor med using the TPSA assay method for [employer] chemistry system. Values obtained with differentassay methods cannot be used interchangably.When changing PSA assays in the course of monitoring apatient, additional sequential testing should be carriedout to confirm baseline values. CBC W/Diff, Automatedon 11-0 -2023 Absolute Lymph 1.92 X10 3/uL Normal 0.83-4.51 [facility] Comment on above: Order Comment: Order Date: 05/19/25 Order Info: [id number] - CMP Order Info: [id number] - LIPID Performed By: #### L 100.0100, L500.4100, L500.4050, L509.1000 #### [facility] [address] [place], [address] Absolute Neut 4.8 X10 3/uL Normal 2.0-7.7 [facility] Comment on above: Order Comment: Order Date: 05/19/25 Order Info: [id number] - CMP Order Info: [id number] - LIPID Performed By: #### L 100.0100, L500.4100, L500.4050, L509.1000 #### [facility] [address] [place], [address] Basophils/100 WBC (Bld) 1.0 % Normal 0-1 [facility] Comment on above: Order Comment: Order Date: 05/19/25 Order Info: [id number] - CMP Order Info: [id number] - LIPID Performed By: #### L 100.0100, L500.4100, L500.4050, L509.1000 #### [facility] [address] [place], [address] Eosinophils/100 WBC (Bld) 3.5 % Normal 0-5 [facility] Comment on above: Order Comment: Order Date: 05/19/25 Order Info: [id number] - CMP Order Info: [id number] - LIPID Performed By: #### L 100.0100, L500.4100, L500.4050, L509.1000 #### [facility] [address] [place], [address] Erythrocyte distribution width (RBC) [Ratio] 12.2 % Normal 11.6-14.6 [facility] Comment on above: Order Comment: Order Date: 05/19/25 Order Info: [id number] - CMP Order Info: [id number] - LIPID Performed By: #### L 100.0100, L500.4100, L500.4050, L509.1000 #### [facility] [address] [place], [address] Hematocrit (Bld) [Volume fraction] 47.6 % Normal 40-54 [facility] Comment on above: Order Comment: Order Date: 05/19/25 Order Info: [id number] - CMP Order Info: [id number] - LIPID Performed By: #### L 100.0100, L500.4100, L500.4050, L509.1000 #### [facility] [address] [place], [address] Hemoglobin (Bld) [Mass/Vol] 16.0 g/dL Normal 13.0-16.5 [facility] Comment on above: Order Comment: Order Date: 05/19/25 Order Info: [id number] - CMP Order Info: [id number] - LIPID Performed By: #### L 100.0100, L500.4100, L500.4050, L509.1000 #### [facility] [address] [place], [address] IG% 0.300 Normal 0.0-0.9 [facility] Comment on above: Order Comment: Order Date: 05/19/25 Order Info: [id number] - CMP Order Info: [id number] - LIPID Result Comment: IG% - Immature Granulocytes (promyelocytes, myelocytes and metamyelocytes) > 1% indicates that a LEFT SHIFT is Present. Performed By: #### L 100.0100, L500.4100, L500.4050, L509.1000 #### [facility] [address] [place], [address] Lymphocytes/100 WBC (Bld) 24.9 % Normal 19-41 [facility] Comment on above: Order Comment: Order Date: 05/19/25 Order Info: [id number]- - CMP Order Info: [id number] - LIPID Performed By: #### L 100.0100, L500.4100, L500.4050, L509.1000 #### [facility] [address] [place], [address] MCH (RBC) [Entitic mass] 31.2 pg Normal 27.0-32.0 [facility] Comment on above: Order Comment: Order Date: 05/19/25 Order Info: [id number] - CMP Order Info: [id number] - LIPID Performed By: #### L 100.0100, L500.4100, L500.4050, L509.1000 #### [facility] [address] [place], [address] MCHC (RBC) [Mass/Vol] 33.6 g/dL Normal 32-36 [facility] Comment on above: Order Comment: Order Date: 05/19/25 Order Info: [id number] - CMP Order Info: [id number] - LIPID Performed By: #### L 100.0100, L500.4100, L500.4050, L509.1000 #### [facility] [address] [place], [address] MCV (RBC) [Entitic vol] 92.8 fL Normal 80-94 [facility] Comment on above: Order Comment: Order Date: 05/19/25 Order Info: [id number]- - CMP Order Info: [id number] - LIPID Performed By: #### L 100.0100, L500.4100, L500.4050, L509.1000 #### [facility] [address] [place], [address] Monocytes/100 WBC (Bld) 8.6 % Normal 0-10 [facility] Comment on above: Order Comment: Order Date: 05/19/25 Order Info: [id number] - CMP Order Info: [id number] - LIPID Performed By: #### L 100.0100, L500.4100, L500.4050, L509.1000 #### [facility] [address] [place], [address] Neutrophils/100 WBC (Bld) 61.7 % Normal 47-70 [facility] Comment on above: Order Comment: Order Date: 05/19/25 Order Info: [id number]- - CMP Order Info: [id number] - LIPID Performed By: #### L 100.0100, L500.4100, L500.4050, L509.1000 #### [facility] [address] [place], [address] Nucleated RBC (Bld) [#/Vol] 0 10*3/uL Normal 0-5 [facility] Comment on above: Order Comment: Order Date: 05/19/25 Order Info: [id number]- - CMP Order Info: [id number] - LIPID Performed By: #### L 100.0100, L500.4100, L500.4050, L509.1000 #### [facility] [address] [place], [address] Platelet mean volume (Bld) [Entitic vol] 8.7 fL Normal 6.2-12.0 [facility] Comment on above: Order Comment: Order Date: 05/19/25 Order Info: [id number] - CMP Order Info: [id number] - LIPID Performed By: #### L 100.0100, L500.4100, L500.4050, L509.1000 #### [facility] [address] [place], [address] Platelets (Bld) [#/Vol] 198 10*3/uL Normal 150-450 [facility] Comment on above: Order Comment: Order Date: 05/19/25 Order Info: [id number] - CMP Order Info: [id number] - LIPID Performed By: #### L 100.0100, L500.4100, L500.4050, L509.1000 #### [facility] [address] [place], [address] RBC (Bld) [#/Vol] 5.13 10*6/uL Normal 4.6-6.2 [facility] Comment on above: Order Comment: Order Date: 05/19/25 Order Info: [id number] - CMP Order Info: [id number] - LIPID Performed By: #### L 100.0100, L500.4100, L500.4050, L509.1000 #### [facility] [address] [place], [address] RDW SD 42.1 fl Normal 35.1-43.9 [facility] Comment on above: Order Comment: Order Date: 05/19/25 Order Info: [id number] - CMP Order Info: [id number] - LIPID Performed By: #### L 100.0100, L500.4100, L500.4050, L509.1000 #### [facility] [address] [place], [address] WBC (Bld) [#/Vol] 7.7 10*3/uL Normal 4.4-11.0 [facility] Comment on above: Order Comment: Order Date: 05/19/25 Order Info: [id number] - CMP Order Info: [id number] - LIPID Performed By: #### L 100.0100, L500.4100, L500.4050, L509.1000 #### [facility] [address] [place], [address] Comprehensive Metabolic Prof ilon 07-15-2024 Albumin [Mass/Vol] 3.7 g/dL Normal 3.2-5.0 [facility] Comment on above: Order Comment: Order Date: 05/19/25 Order Info: [id number] - CMP Order Info: [id number] - LIPID Performed By: #### L 100.0100, L500.4100, L500.4050, L509.1000 #### [facility] [address] [place], [address] Albumin/Globulin [Mass ratio] 1.0 {ratio} Normal 0.9-2.4 [facility] Comment on above: Order Comment: Order Date: 05/19/25 Order Info: [id number] - CMP Order Info: [id number] - LIPID Performed By: #### L 100.0100, L500.4100, L500.4050, L509.1000 #### [facility] [address] [place], [address] ALK P 68 U/L Normal 45-117 [facility] Comment on above: Order Comment: Order Date: 05/19/25 Order Info: [id number] - CMP Order Info: [id number] - LIPID Performed By: #### L 100.0100, L500.4100, L500.4050, L509.1000 #### [facility] [address] [place], [address] ALT [Catalytic activity/Vol] 37 U/L Normal 16-61 [facility] Comment on above: Order Comment: Order Date: 05/19/25 Order Info: [id number] - CMP Order Info: [id number] - LIPID Performed By: #### L 100.0100, L500.4100, L500.4050, L509.1000 #### [facility] [address] [place], [address] AST [Catalytic activity/Vol] 19 U/L Normal 15-37 [facility] Comment on above: Order Comment: Order Date: 05/19/25 Order Info: [id number] - CMP Order Info: [id number] - LIPID Performed By: #### L 100.0100, L500.4100, L500.4050, L509.1000 #### [facility] [address] [place], [address] Bilirubin [Mass/Vol] 0.40 mg/dL Normal 0.20-1.00 [facility] Comment on above: Order Comment: Order Date: 05/19/25 Order Info: [id number]- - CMP Order Info: [id number] - LIPID Result Comment: For patients on eltrombopag therapy, use of Dimension [place] TBIL is not recommended. Performed By: #### L 100.0100, L500.4100, L500.4050, L509.1000 #### [facility] [address] [place], [address] BUN/CRE 22.8 RATIO High 10-20 [facility] Comment on above: Order Comment: Order Date: 05/19/25 Order Info: [id number] - CMP Order Info: [id number] - LIPID Performed By: #### L 100.0100, L500.4100, L500.4050, L509.1000 #### [facility] [address] [place], [address] CA,Total 9.5 mg/dL Normal 8.5-10.1 [facility] Comment on above: Order Comment: Order Date: 05/19/25 Order Info: [id number]- - CMP Order Info: [id number] - LIPID Performed By: #### L 100.0100, L500.4100, L500.4050, L509.1000 #### [facility] [address] [place], [address] Chloride [Moles/Vol] 110 mmol/L High 98-107 [facility] Comment on above: Order Comment: Order Date: 05/19/25 Order Info: 0786- - CMP Order Info: [id number] - LIPID Performed By: #### L 100.0100, L500.4100, L500.4050, L509.1000 #### [facility] [address] [place], [address] CO2 [Moles/Vol] 24.0 mmol/L Normal 21.0-32.0 [facility] Comment on above: Order Comment: Order Date: 05/19/25 Order Info: [id number] - CMP Order Info: [id number] - LIPID Performed By: #### L 100.0100, L500.4100, L500.4050, L509.1000 #### [facility] [address] [place], [address] Creatinine [Mass/Vol] 1.36 mg/dL High 0.70-1.30 [facility] Comment on above: Order Comment: Order Date: 05/19/25 Order Info: 07- - CMP Order Info: [id number] - LIPID Result Comment: The validity of the calculated GFR GFRAA in patients over 70 years has not been determined. Clinical correlation is essential. Performed By: #### L 100.0100, L500.4100, L500.4050, L509.1000 #### [facility] [address] [place], [address] EST GFR - AA 68 mL/min Normal >60 [facility] Comment on above: Order Comment: Order Date: 05/19/25 Order Info: [id number] - CMP Order Info: [id number] - LIPID Result Comment: Afri can [place] GFR Calc Performed By: #### L 100.0100, L500.4100, L500.4050, L509.1000 #### [facility] [address] [place], [address] GAP 6 Normal 5-15 [facility] Comment on above: Order Comment: Order Date: 05/19/25 Order Info: [id number] - CMP Order Info: [id number] - LIPID Performed By: #### L 100.0100, L500.4100, L500.4050, L509.1000 #### [facility] [address] [place], [address] GFR/1.73 sq M.predicted among non-blacks MDRD (S/P/Bld) [Vol rate/Area] 56 mL/min/{1.73_m2} Low >60 [facility] Comment on above: Order Comment: Order Date: 05/19/25 Order Info: 0786- - CMP Order Info: [id number] - LIPID Result Comment: Non- GFR Calc Performed By: #### L 100.0100, L500.4100, L500.4050, L509.1000 #### [facility] [address] [place], [address] Globulin (S) [Mass/Vol] 3.6 g/dL Normal 2.2-4.2 [facility] Comment on above: Order Comment: Order Date: 05/19/25 Order Info: 0786- - CMP Order Info: [id number] - LIPID Performed By: #### L 100.0100, L500.4100, L500.4050, L509.1000 #### [facility] [address] [place], [address] Glucose [Mass/Vol] 95 mg/dL Normal 74-106 [facility] Comment on above: Order Comment: Order Date: 05/19/25 Order Info: 0786- - CMP Order Info: [id number] - LIPID Performed By: #### L 100.0100, L500.4100, L500.4050, L509.1000 #### [facility] [address] [place], [address] Potassium [Moles/Vol] 3.8 mmol/L Normal 3.5-5.1 [facility] Comment on above: Order Comment: Order Date: 05/19/25 Order Info: 0786- - CMP Order Info: [id number] - LIPID Performed By: #### L 100.0100, L500.4100, L500.4050, L509.1000 #### [facility] [address] [place], [address] Sodium [Moles/Vol] 139 mmol/L Normal 136-145 [facility] Comment on above: Order Comment: Order Date: 05/19/25 Order Info: [id number] - CMP Order Info: [id number] - LIPID Performed By: #### L 100.0100, L500.4100, L500.4050, L509.1000 #### [facility] [address] [place], [address] T PROT 7.3 g/dL Normal 6.4-8.2 [facility] Comment on above: Order Comment: Order Date: 05/19/25 Order Info: [id number] - CMP Order Info: [id number] - LIPID Performed By: #### L 100.0100, L500.4100, L500.4050, L509.1000 #### [facility] [address] [place], [address] Urea nitrogen [Mass/Vol] 31 mg/dL High 7-18 [facility] Comment on above: Order Comment: Order Date: 05/19/25 Order Info: [id number] - [facility] Order Info: [id number] - LIPID Performed By: #### L 100.0100, L500.4100, L500.4050, L509.1000 #### [facility] [address] [place], [address] Endocrinology Visit Reporton 07-15-2024 Endocrinology Visit Report [facility] [address] [place] [address] OFFICE VISIT Date of Service: 07/15/24 MR#: [id number] Acct: [id number] Name: VLAD SIDDIQI Rep #: [id number] : 1960 Provider: Vandana Douglas Age/Sex: 64/M Location: [facility] [place] Status: Signed Intake Vital Signs 01/15/24 14:51 07/15/24 15:22 Height 5 ft 6 in 5 ft 6 in Weight: 266 lb BMI 42.9 BP 119/78 Blood Pressure Location Rt brachial Position Sitting Pulse 87 Pulse Source Monitor Pulse Oximetry (%) 93 Oxygen Delivery Method room air Intake Visit Reasons: 6 M FU Chief Complaint: Diabetes Is patient in pain?: No Allergies fentanyl (From Sublimaze (PF)) Allergy (Severe, Verified 01/15/24 14:56) Unknown doxycycline Allergy (Intermediate, Verified 01/15/24 14:57) Rash Penicillins Allergy (Intermediate, Verified 01/15/24 14:56) rash sulfur (From Sulfur-8) Allergy (Intermediate, Verified 01/15/24 14:56) rash Tetracyclines Adverse Reaction (Severe, Verified 01/15/24 14:56) Unknown Medications ???Medication ???Instructions ???Recorded ???Confirmed ???Type aspirin 81 mg tablet,delayed 81 mg PO DAILY 04/01/20 07/15/24 History release (Adult Aspirin Regimen) atorvastatin 20 mg tablet 20 mg PO DAILY 04/01/20 07/15/24 History multivitamin (Daily Multi-Vitamin 1 tab PO DAILY 04/01/20 07/15/24 History tablet) acetaminophen 500 mg tablet 500 mg PO Q6H PRN 04/21/21 07/15/24 History (Tylenol Extra Strength) loratadine 10 mg tablet 10 mg PO DAILY 05/09/22 07/15/24 History pen needle, diabetic 31 gauge x #350 ea 05/01/23 07/15/24 Rx /16 (Comfort EZ Pen [place]) fluticasone propionate 50 2 spray intranasal DAILY PRN 10/15/23 07/15/24 History mcg/actuation nasal spray,suspension lisinopril 20 mg tablet 20 mg PO DAILY 10/15/23 07/15/24 History pregabalin 50 mg capsule 50 mg PO DAILY 10/15/23 07/15/24 History tadalafil 10 mg tablet 20 mg PO DAILY PRN 10/15/23 07/15/24 History insulin aspart 1 sliding scale dose subcut TID 04/04/24 07/15/24 Rx (niacinamide)(U-100) 100 unit/mL(3 #60 mL mL) subcutaneous pen (Fiasp FlexTouch U-100 Insulin) Humulin R U-500 (Conc) Kwikpen 500 90 unit (0.18 mL) subcut TID #48 mL 10/21/24 11/05/24 Rx unit/mL (3 mL) subcutaneous (insulin regular hum U-500 conc) Farxiga 10 mg tablet 10 mg PO DAILY #90 tabs 07/10/24 07/15/24 Rx (dapagliflozin propanediol) PFSH Medical History Degenerative joint disease (DJD) of lumbar spine Low back pain GERD (gastroesophageal reflux disease) Hypertriglyceridemia Neuropathy Hives Carpal tunnel syndrome Asthma Arthritis Environmental allergies HTN (hypertension) Hyperlipidemia Type 1 diabetes mellitus Surgical History History of carpal tunnel surgery Hx of knee surgery Family History Father Arthritis Colon cancer Cancer Diabetes Myocardial infarction CAD (coronary artery disease) Heart disease COPD (chronic obstructive pulmonary disease) Mother Diabetes Heart disease CAD (coronary artery disease) Hypertension CVA (cerebral vascular accident) Social History Smoking Status: Never smoker alcohol intake: never substance use type: does not use frequency: daily HPI HPI Chief Complaint: Diabetes Details: VLAD SIDDIQI, is a 64 M who presents to the office today for follow up. A1C is 6.9% He is taking U-500 TID (mostly) and Novolog prn. He is using CGM. Upload shows well controlled blood sugars. He has stage 3a CKD and he is concerned about the longevity of his kidney function. Labs today show improvement in GFR. He is on Farxiga. He is on statin. ROS Const Constitutional: No fatigue, weight change or change in appetite Eyes Eyes: No change in vision ENT ENT: No dizziness/vertigo or difficulty swallowing Cardio Cardiology: No chest pain at rest, chest pain with exertion, shortness of breath or palpitations Musc Musculoskeletal: No abnormal gait, joint pain, numbness or tingling Neuro Neurology: No abnormal gait, memory loss, numbness or tingling Psych Psychiatric: No change in appetite, No memory loss and No Thoughts of harming yourself/Others Resp Respiratory: No cough, chest congestion or shortness of breath Gastro GI: No abdominal pain, constipation, diarrhea or difficulty swallowing Genitourinary Male: No burning urination Skin Skin: No itchy eyes or wounds Endo Endocrine: No fatigue or weight change Aller/Imm Allergy/Immunologic: No itchy eyes Exam Const General: cooperative, healthy appearing, c (more content not included)... Normal [facility] Lipid Profileon 07-15-2024 Cholesterol [Mass/Vol] 146 mg/dL Normal 200 [facility] Comment on above: Order Comment: Order Date: 05/19/25 Order Info: [id number] - CMP Order Info: [id number] - LIPID Result Comment: <200 mg/dL Desirable 200-240 mg/dL Borderline >240 mg/dL High Risk Performed By: #### L 100.0100, L500.4100, L500.4050, L509.1000 #### [facility] [address] [place], [address] Cholesterol in HDL [Mass/Vol] 51 mg/dL Normal [facility] Comment on above: Order Comment: Order Date: 05/19/25 Order Info: [id number] - CMP Order Info: [id number] - LIPID Result Comment: The drugs N-Acetylcysteine and Metamizole may falsely depress this assay. Reference Range HDL <40 mg/dL Low HDL Cholesterol HDL >or= 60 mg/dL High HDL Cholesterol Performed By: #### L 100.0100, L500.4100, L500.4050, L509.1000 #### [facility] [address] [place], [address] Cholesterol in LDL [Mass/Vol] 66 mg/dL Normal 0-130 [facility] Comment on above: Order Comment: Order Date: 05/19/25 Order Info: [id number] - CMP Order Info: [id number] - LIPID Performed By: #### L 100.0100, L500.4100, L500.4050, L509.1000 #### [facility] [address] [place], [address] Cholesterol in VLDL [Mass/Vol] 29 mg/dL Normal 5-40 [facility] Comment on above: Order Comment: Order Date: 05/19/25 Order Info: [id number] - CMP Order Info: [id number] - LIPID Performed By: #### L 100.0100, L500.4100, L500.4050, L509.1000 #### [facility] [address] [place], [address] Triglyceride [Mass/Vol] 144 mg/dL Normal [facility] Comment on above: Order Comment: Order Date: 05/19/25 Order Info: [id number] - CMP Order Info: [id number] - LIPID Result Comment: The drugs N-Acetylcysteine and Metamizole may falsely depress this assay. Serum Triglycerides Reference Interval Normal <150 mg/dL Borderline high 150 - 199 mg/dL High 200 - 499 mg/dL Very High > or = 500 mg/dL Performed By: #### L 100.0100, L500.4100, L500.4050, L509.1000 #### [facility] [address] [place], [address] PTHINon 07-15-2024 PTH 27.2 pg/mL Normal 18.4-80.1 [facility] Comment on above: Order Comment: Order Date: 05/19/25 Order Info: [id number] - CMP Order Info: [id number] - LIPID Performed By: #### L 100.0100, L500.4100, L500.4050, L509.1000 #### [facility] [address] [place], [address] Phosphoruson 07-15-2024 Phosphate [Mass/Vol] 4.0 mg/dL Normal 2.5-4.9 [facility] Comment on above: Order Comment: Order Date: 05/19/25 Order Info: [id number] - CMP Order Info: [id number] - LIPID Performed By: #### L 100.0100, L500.4100, L500.4050, L509.1000 #### [facility] [address] [place], [address] Protein+Creatinine Ratio,Uri neon 07-15-2024 PROT:CRE RATIO 203 mg/g CRE High 0-200 [facility] Comment on above: Performed By: #### L 100.0100, L500.4100, L500.4050, L509.1000 #### [facility] [address] [place], [address] Protein (U) [Mass/Vol] 16.6 mg/dL High <11.9 [facility] Comment on above: Performed By: #### L 100.0100, L500.4100, L500.4050, L509.1000 #### [facility] [address] [place], [address] UR CREAT 81.90 mg/dL Normal NO RANGE EST. [facility] Comment on above: Performed By: #### L 100.0100, L500.4100, L500.4050, L509.1000 #### [facility] [address] [place], [address] Protein, Urine (Random)on Protein (U) [Mass/Vol] 17.9 mg/dL High <11.9 [facility] Comment on above: Performed By: #### L 501.1930 #### [facility] [address] [place], [address] Urinalysis, Routine (Dipstic k)on 07-15-2024 BILIRUBIN URINE Negative Normal Negative [facility] Comment on above: Order Comment: Order Date: 05/19/25 Order Info: [id number] - CMP Order Info: [id number] - LIPID Performed By: #### L 100.0100, L500.4100, L500.4050, L509.1000 #### [facility] [address] [place], [address] Clarity (U) Clear Normal Clear [facility] Comment on above: Order Comment: Order Date: 05/19/25 Order Info: [id number] - CMP Order Info: [id number] - LIPID Performed By: #### L 100.0100, L500.4100, L500.4050, L509.1000 #### [facility] [address] [place], [address] Color (U) Yellow Normal Yellow [facility] Comment on above: Order Comment: Order Date: 05/19/25 Order Info: 0786- - CMP Order Info: [id number] - LIPID Performed By: #### L 100.0100, L500.4100, L500.4050, L509.1000 #### [facility] [address] [place], [address] GLUCOSE, UR 1000 mg/dl Abnormal Normal [facility] Comment on above: Order Comment: Order Date: 05/19/25 Order Info: 07- - CMP Order Info: [id number] - LIPID Performed By: #### L 100.0100, L500.4100, L500.4050, L509.1000 #### [facility] [address] [place], [address] KETONE UR Negative Normal Negative [facility] Comment on above: Order Comment: Order Date: 05/19/25 Order Info: 0786- - CMP Order Info: [id number] - LIPID Performed By: #### L 100.0100, L500.4100, L500.4050, L509.1000 #### [facility] [address] [place], [address] LEUK ESTERASE Negative Normal Negative [facility] Comment on above: Order Comment: Order Date: 05/19/25 Order Info: 0786- - CMP Order Info: [id number] - LIPID Performed By: #### L 100.0100, L500.4100, L500.4050, L509.1000 #### [facility] [address] [place], [address] Nitrite Ql (U) Negative Normal Negative [facility] Comment on above: Order Comment: Order Date: 05/19/25 Order Info: [id number] - CMP Order Info: [id number] - LIPID Performed By: #### L 100.0100, L500.4100, L500.4050, L509.1000 #### [facility] [address] [place], [address] OCCULT BLOOD-UR 10 /ul Abnormal Negative [facility] Comment on above: Order Comment: Order Date: 05/19/25 Order Info: 0786- - CMP Order Info: [id number] - LIPID Performed By: #### L 100.0100, L500.4100, L500.4050, L509.1000 #### [facility] [address] [place], [address] pH UR 6.0 Normal 5.0 - 8.0 [facility] Comment on above: Order Comment: Order Date: 05/19/25 Order Info: 0786 - CMP Order Info: [id number] - LIPID Performed By: #### L 100.0100, L500.4100, L500.4050, L509.1000 #### [facility] [address] [place], [address] PROT DIPSTX 30 mg/dl Abnormal Negative [facility] Comment on above: Order Comment: Order Date: 05/19/25 Order Info: 0786- - CMP Order Info: [id number] - LIPID Performed By: #### L 100.0100, L500.4100, L500.4050, L509.1000 #### [facility] [address] [place], [address] SP.GR. DIPSTX 1.020 Normal 1.002-1.030 [facility] Comment on above: Order Comment: Order Date: 05/19/25 Order Info: [id number] - CMP Order Info: [id number] - LIPID Performed By: #### L 100.0100, L500.4100, L500.4050, L509.1000 #### [facility] [address] [place], [address] UROBILI Normal Normal Normal [facility] Comment on above: Order Comment: Order Date: 05/19/25 Order Info: [id number] - CMP Order Info: [id number] - LIPID Performed By: #### L 100.0100, L500.4100, L500.4050, L509.1000 #### [facility] [address] [place], [address] Vitamin D,25 Hydroxyon 07-15 Vitamin D 25-OH 62.4 ng/mL Normal [facility] Comment on above: Order Comment: Order Date: 05/19/25 Order Info: [id number] - CMP Order Info: [id number] - LIPID Result Comment: Jillian min D 25(OH) Status Range Deficiency <20 ng/mL (50nmol/L) Insufficiency 20 - 30 ng/mL (50 - 75 nmol/L) Sufficiency 30 - 100 ng/mL (75 - 250 nmol/L) Toxicity >100 ng/mL (>250 nmol/L) Performed By: #### L 100.0100, L500.4100, L500.4050, L509.1000 #### [facility] [address] [place], [address] Laboratory - Hematology and Cell countson 10-15-2023 HbA1c (Bld) [Mass fraction] 7.0 % 4.2-6.3 [facility] Absolute lymphocyte countOrd ered By: Kacey Navarro on 09-27-2023 Lymphocytes Auto (Unsp spec) [#/Vol] 1.81 10*3/uL 0.83-4.51 [facility] Automated lymphocyte count a s percentage of total leukocytesOrdered By: Kacey Navarro on 09-27-2023 Lymphocytes/100 WBC Auto (Unsp spec) 29.6 % 19-41 [facility] Basophil percentageOrdered B y: Kacey Navarro on 09-27-2023 Basophil percentage 0 SEEN /hpf 0-5 [facility] Basophil percentage 3.6 mg/dL 2.5-4.9 [facility] Basophils/100 WBC (Bld) 1.0 % 0-1 [facility] Bilirubin [Mass/Vol] 0.50 mg/dL 0.20-1.00 [facility] Comment on above: For patients on eltr ombopag therapy, use of Dimension [place] TBIL is not recommended. Chloride [Moles/Vol] 111 mmol/L 98-107 [facility] Cholesterol [Mass/Vol] 135 mg/dL <200 [facility] Comment on above: <200 mg/dL Desirable 200-240 mg/dL Borderline >240 mg/dL High Risk Eosinophils/100 WBC (Bld) 3.3 % 0-5 [facility] Glucose [Mass/Vol] 105 mg/dL 74-106 [facility] Comment on above: Fasting Glucose resu lt from 100 to 125 mg/dL suggests IMPAIRED HOMEOSTASIS per A.D.A. criteria. Hemoglobin (Bld) [Mass/Vol] 15.8 g/dL 13.0-16.5 [facility] Monocytes/100 WBC (Bld) 8.3 % 0-10 [facility] Neutrophils (Bld) [#/Vol] 3.5 10*3/uL 2.0-7.7 [facility] Neutrophils/100 WBC (Bld) 57.5 % 47-70 [facility] Potassium [Moles/Vol] 3.8 mmol/L 3.5-5.1 [facility] Protein [Mass/Vol] 7.4 g/dL 6.4-8.2 [facility] Sodium [Moles/Vol] 142 mmol/L 136-145 [facility] Triglyceride [Mass/Vol] 161 mg/dL <199 [facility] Comment on above: The drugs N-Acetylcy steine and Metamizole may falsely depress this assay.Serum Triglycerides Reference Interval Normal <150 mg/dL Borderline high 150 - 199 mg/dL High 200 - 499 mg/dL Very High > or = 500 mg/dL WBC (Bld) [#/Vol] 6.1 10*3/uL 4.4-11.0 [facility] Bilirubin Test strip Ql (U)O rdered By: Kacey Navarro on 09-27-2023 Bilirubin Ql (U) Negative Negative [facility] Determination of erythrocyte mean corpuscular volume (MCV)Ordered By: Kacey Navarro on 09-27-2023 MCV (RBC) [Entitic vol] 93.6 fL 80-94 [facility] Erythrocyte distribution wid th ratioOrdered By: Kacey Navarro on 09-27-2023 Erythrocyte distribution width (RBC) [Ratio] 12.4 % 11.6-14.6 [facility] Erythrocyte distribution wid th standard deviationOrdered By: Kacey Navarro on 09-27-2023 Erythrocyte distribution width (RBC) [Entitic vol] 42.7 fL 35.1-43.9 [facility] Hematocrit Auto (Bld) [Volum e fraction]Ordered By: Kacey Navarro on 09-27-2023 Hematocrit (Bld) [Volume fraction] 49.4 % 40-54 [facility] High density lipoprotein (HD L) measurementOrdered By: Kacey Navarro on 09-27-2023 Cholesterol in HDL (Body fld) [Mass/Vol] 50 mg/dL >40 [facility] Comment on above: The drugs N-Acetylcy steine and Metamizole may falsely depress this assay. Reference Range HDL <40 mg/dL Low HDL Cholesterol HDL >or= 60 mg/dL High HDL Cholesterol Immature granulocytes/100 WB C Auto (Bld)Ordered By: Kacey Navarro on 09-27-2023 Immature granulocytes/100 WBC (Bld) 0.300 % 0.0-0.9 [facility] Comment on above: IG% - Immature Granu locytes (promyelocytes, myelocytes and metamyelocytes) > 1% indicates that a LEFT SHIFT is Present. Intact parathyroid hormone ( iPTH) measurementOrdered By: Kacey Navarro on 09-27-2023 Parathyrin.intact (Tissue fine needle aspirate) [Mass/Vol] 31.5 pg/mL 18.4-80.1 [facility] Ketones Test strip Ql (U)Ord ered By: Kacey Navarro on 09-27-2023 Ketones Ql (U) Negative Negative [facility] Laboratory - Chemistry and C hemistry - challengeOrdered By: Kacey Navarro on 09-27-2023 Albumin/Globulin [Mass ratio] 0.9 {ratio} 0.9-2.4 [facility] ALP [Catalytic activity/Vol] 70 U/L 45-117 [facility] ALT [Catalytic activity/Vol] 55 U/L 16-61 [facility] CO2 [Moles/Vol] 25.0 mmol/L 21.0-32.0 [facility] Globulin (S) [Mass/Vol] 3.8 g/dL 2.2-4.2 [facility] Urea nitrogen/Creatinine [Mass ratio] 18.0 mg/mg 10-20 [facility] Laboratory - Hematology and Cell countsOrdered By: Kacey Navarro on 09-27-2023 MCH (RBC) [Entitic mass] 29.9 pg 27.0-32.0 [facility] MCHC (RBC) [Mass/Vol] 32.0 g/dL 32-36 [facility] Nucleated RBC/100 WBC (Bld) [Ratio] 0 % 0-5 [facility] [facility]Bld[facility] [#/Vol] 216 10*3/uL 150-450 [facility] Low density lipoprotein (LDL ) cholesterol measurementOrdered By: Kacey Navarro on 09-27-2023 Cholesterol in LDL (Body fld) [Moles/Vol] 53 mg/dL 0-130 [facility] Mucus LM Ql (Urine sed)Order ed By: Kacey Navarro on 09-27-2023 Mucus Ql (Urine sed) 0 SEEN /hpf [facility] Nitrite Test strip Ql (U)Ord ered By: Kacey Navarro on 09-27-2023 Nitrite Ql (U) Negative Negative [facility] No Panel InformationOrdered By: Kacey Navarro on 09-27-2023 Estimated GFR (MDRD) Amer 61 mL/min >60 [facility] Comment on above: GFR Calc Estimated GFR (MDRD) Non-Af Amer 50 mL/min >60 [facility] Comment on above: Non- GFR Calc Urine RBC 0 SEEN /hpf 0-5 [facility] Vitamin D 25-Hydroxy 70.4 ng/mL [facility] Comment on above: Vitamin D 25(OH) Sta tus Range Deficiency <20 ng/mL (50nmol/L) Insufficiency 20 - 30 ng/mL (50 - 75 nmol/L) Sufficiency 30 - 100 ng/mL (75 - 250 nmol/L) Toxicity >100 ng/mL (>250 nmol/L) Platelet mean volume Steven-Ec ker (Bld) [Entitic vol]Ordered By: Kacey Navarro on 09-27-2023 Platelet mean volume (Bld) [Entitic vol] 9.0 fL 6.2-12.0 [facility] Protein Test strip Ql (U)Ord ered By: Kacey Navarro on 09-27-2023 Protein Ql (U) 15 mg/dl Negative [facility] RBC Auto (Bld) [#/Vol]Ordere d By: Kacey Navarro on 09-27-2023 RBC (Bld) [#/Vol] 5.28 10*6/uL 4.6-6.2 [facility] Serum or plasma calcium melanie urement (mass/volume)Ordered By: Kacey Navarro on 09-27-2023 Calcium [Mass/Vol] 8.9 mg/dL 8.5-10.1 [facility] Serum or plasma creatinine m easurement (mass/volume)Ordered By: Kacey Navarro on 09-27-2023 Creatinine [Mass/Vol] 1.50 mg/dL 0.70-1.30 [facility] Comment on above: The validity of the calculated GFR & GFRAA in patients over 70 years has not been determined. Clinical correlation is essential. Serum or plasma thyroid stim ulating hormone (TSH) measurement (units/volume)Ordered By: Kacey Navarro on 09-27-2023 TSH Qn 1.50 uIU/mL 0.358-3.74 [facility] Serum or plasma urea nitroge n measurement (mass/volume)Ordered By: Kacey Navarro on 09-27-2023 Urea nitrogen [Mass/Vol] 27 mg/dL 03-27 [facility] Squamous epithelial cells de tection in urine sediment by light microscopyOrdered By: Kacey Navarro on 09-27-2023 Epithelial cells.squamous LM Ql (Urine sed) 0 SEEN /hpf 0-5 [facility] Thin prep Papanicolaou smear with manual screeningOrdered By: Kacey Navarro on 09-27-2023 Protein (U) [Mass/Vol] 18.2 mg/dL 0.0-11.8 [facility] Thin prep Papanicolaou smear with manual screening 3.6 g/dL 3.2-5.0 [facility] Thin prep Papanicolaou smear with manual screening 29 U/L 15-37 [facility] Thin prep Papanicolaou smear with manual screening 6 5-15 [facility] Urine blood detectionOrdered By: Kacey Navarro on 09-27-2023 RBC Ql (U) Negative Negative [facility] Urine clarityOrdered By: Todd Navarro on 09-27-2023 Clarity (U) Clear Clear [facility] Urine color determinationOrd ered By: Kacey Navarro on 09-27-2023 Color (U) Yellow Yellow [facility] Urine creatinine measurement (mass/volume)Ordered By: Kacey Navarro on 09-27-2023 Creatinine (U) [Mass/Vol] 69.00 mg/dL NO RANGE EST. [facility] Urine glucose detectionOrder ed By: Kacey Navarro on 09-27-2023 Glucose Ql (U) 1000 mg/dl Normal [facility] Urine leukocyte esterase det ection by dipstickOrdered By: Kacey Navarro on 09-27-2023 Leukocyte esterase Test strip Ql (U) Negative Negative [facility] Urine pHOrdered By: Kacey orozco on 09-27-2023 pH (U) 6.5 [pH] 5.0 - 8.0 [facility] Urine protein/creatinine mas s ratioOrdered By: Kacey Navarro on 09-27-2023 Protein/Creatinine (U) [Mass ratio] 264 mg/g CRE 0-200 [facility] Urine sediment bacteria coun t by microscopy (number/high power field)Ordered By: Kacey Navarro on 09-27-2023 Bacteria LM.HPF (Urine sed) [#/Area] 0 /[HPF] None Seen [facility] Urine specific gravity measu rementOrdered By: Kacey Navarro on 09-27-2023 Specific gravity (U) [Rel density] 1.015 1.002-1.030 [facility] Urine urobilinogen measureme ntOrdered By: Kacey Navarro on 09-27-2023 Urobilinogen Ql (U) Normal mg/dl Normal [facility] Very low density lipoprotein (VLDL) cholesterol measurementOrdered By: Kacey Navarro on 09-27-2023 Cholesterol in VLDL Calc [Moles/Vol] 32 mg/dL 5-40 [facility] Absolute lymphocyte countOrd ered By: Kacey Navarro on 05-16-2023 Lymphocytes Auto (Unsp spec) [#/Vol] 1.66 10*3/uL 0.83-4.51 [facility] Basophil percentageOrdered B y: Kacey Navarro on 05-16-2023 Basophil percentage 0 SEEN /hpf 0-5 [facility] Basophil percentage 2.8 mg/dL 2.5-4.9 [facility] Basophils/100 WBC (Bld) 0.9 % 0-1 [facility] Bilirubin [Mass/Vol] 0.40 mg/dL 0.20-1.00 [facility] Comment on above: For patients on eltr ombopag therapy, use of Dimension [place] TBIL is not recommended. Chloride [Moles/Vol] 109 mmol/L 98-107 [facility] Cholesterol [Mass/Vol] 126 mg/dL <200 [facility] Comment on above: <200 mg/dL Desirable 200-240 mg/dL Borderline >240 mg/dL High Risk Eosinophils/100 WBC (Bld) 3.9 % 0-5 [facility] Glucose [Mass/Vol] 178 mg/dL 74-106 [facility] Comment on above: Fasting Glucose resu lt greater than or equal to 126 mg/dL suggests DIABETES MELLITUS per A.D.A. criteria. Neutrophils (Bld) [#/Vol] 4.1 10*3/uL 2.0-7.7 [facility] Neutrophils/100 WBC (Bld) 61.5 % 47-70 [facility] Potassium [Moles/Vol] 4.0 mmol/L 3.5-5.1 [facility] Protein [Mass/Vol] 7.3 g/dL 6.4-8.2 [facility] Sodium [Moles/Vol] 140 mmol/L 136-145 [facility] Triglyceride [Mass/Vol] 163 mg/dL <199 [facility] Comment on above: The drugs N-Acetylcy steine and Metamizole may falsely depress this assay.Serum Triglycerides Reference Interval Normal <150 mg/dL Borderline high 150 - 199 mg/dL High 200 - 499 mg/dL Very High > or = 500 mg/dL WBC (Bld) [#/Vol] 6.7 10*3/uL 4.4-11.0 [facility] Bilirubin Test strip Ql (U)O rdered By: Kacey Navarro on 05-16-2023 Bilirubin Ql (U) Negative Negative [facility] Blood erythrocytes count (nu mber/volume)Ordered By: Kacey Navarro on 05-16-2023 RBC (Bld) [#/Vol] 5.28 10*6/uL 4.6-6.2 [facility] Blood hemoglobin measurement (mass/volume)Ordered By: Kacey Navarro on 05-16-2023 Hemoglobin (Bld) [Mass/Vol] 16.1 g/dL 13.0-16.5 [facility] Blood lymphocytes/100 leukoc ytesOrdered By: Kacey Navarro on 05-16-2023 Lymphocytes/100 WBC (Bld) 24.9 % 19-41 [facility] Blood monocytes/100 leukocyt esOrdered By: Kacey Navarro on 05-16-2023 Monocytes/100 WBC (Bld) 8.7 % 0-10 [facility] Blood platelet mean volumeOr dered By: Kacey Navarro on 05-16-2023 Platelet mean volume (Bld) [Entitic vol] 8.7 fL 6.2-12.0 [facility] Determination of erythrocyte mean corpuscular volume (MCV)Ordered By: Kacey Navarro on 05-16-2023 MCV (RBC) [Entitic vol] 92.2 fL 80-94 [facility] Hematocrit Auto (Bld) [Volum e fraction]Ordered By: Kacey Navarro on 05-16-2023 Hematocrit (Bld) [Volume fraction] 48.7 % 40-54 [facility] Ketones Test strip Ql (U)Ord ered By: Kacey Navarro on 05-16-2023 Ketones Ql (U) Negative Negative [facility] Laboratory - Chemistry and C hemistry - challengeOrdered By: Kacey Navarro on 05-16-2023 ALP [Catalytic activity/Vol] 65 U/L 45-117 [facility] ALT [Catalytic activity/Vol] 44 U/L 16-61 [facility] CO2 [Moles/Vol] 26.0 mmol/L 21.0-32.0 [facility] Globulin (S) [Mass/Vol] 3.7 g/dL 2.2-4.2 [facility] Urea nitrogen/Creatinine [Mass ratio] 12.0 mg/mg 10-20 [facility] Laboratory - Hematology and Cell countsOrdered By: Kacey Navarro on 05-16-2023 Erythrocyte distribution width (RBC) [Entitic vol] 42.5 fL 35.1-43.9 [facility] Erythrocyte distribution width (RBC) [Ratio] 12.5 % 11.6-14.6 [facility] Immature granulocytes/100 WBC (Bld) 0.100 % 0.0-0.9 [facility] Comment on above: IG% - Immature Granu locytes (promyelocytes, myelocytes and metamyelocytes) > 1% indicates that a LEFT SHIFT is Present. MCH (RBC) [Entitic mass] 30.5 pg 27.0-32.0 [facility] Nucleated RBC/100 WBC (Bld) [Ratio] 0 % 0-5 [facility] MCHC Auto (RBC) [Mass/Vol]Or dered By: Kacey Navarro on 05-16-2023 MCHC (RBC) [Mass/Vol] 33.1 g/dL 32-36 [facility] Mucus LM Ql (Urine sed)Order ed By: Kacey Navarro on 05-16-2023 Mucus Ql (Urine sed) 0 SEEN /hpf [facility] Nitrite Test strip Ql (U)Ord ered By: Kacey Navarro on 05-16-2023 Nitrite Ql (U) Negative Negative [facility] No Panel InformationOrdered By: Kacey Navarro on 05-16-2023 Estimated GFR (MDRD) Amer 61 mL/min >60 [facility] Comment on above: GFR Calc Estimated GFR (MDRD) Non-Af Amer 50 mL/min >60 [facility] Comment on above: Non- GFR Calc Parathyroid Hormone (Intact) 27.2 pg/mL 18.4-80.1 [facility] Vitamin D 25-Hydroxy 65.2 ng/mL [facility] Comment on above: Vitamin D 25(OH) Sta tus Range Deficiency <20 ng/mL (50nmol/L) Insufficiency 20 - 30 ng/mL (50 - 75 nmol/L) Sufficiency 30 - 100 ng/mL (75 - 250 nmol/L) Toxicity >100 ng/mL (>250 nmol/L) Platelets bldOrdered By: Todd Navarro on 05-16-2023 Platelets (Bld) [#/Vol] 227 10*3/uL 150-450 [facility] Protein Test strip Ql (U)Ord ered By: Kacey Navarro on 05-16-2023 Protein Ql (U) Negative Negative [facility] Serum or plasma albumin melanie urement (mass/volume)Ordered By: Kacey Navarro on 05-16-2023 Albumin [Mass/Vol] 3.6 g/dL 3.2-5.0 [facility] Serum or plasma albumin/glob ulin mass ratioOrdered By: Kacey Navarro on 05-16-2023 Albumin/Globulin [Mass ratio] 1.0 {ratio} 0.9-2.4 [facility] Serum or plasma calcium melanie urement (mass/volume)Ordered By: Kacey Navarro on 05-16-2023 Calcium [Mass/Vol] 8.7 mg/dL 8.5-10.1 [facility] Serum or plasma cholesterol in HDL measurement (mass/volume)Ordered By: Kacey Navarro on 05-16-2023 Cholesterol in HDL [Mass/Vol] 51 mg/dL >40 [facility] Comment on above: The drugs N-Acetylcy steine and Metamizole may falsely depress this assay. Reference Range HDL <40 mg/dL Low HDL Cholesterol HDL >or= 60 mg/dL High HDL Cholesterol Serum or plasma cholesterol in VLDL measurement (mass/volume)Ordered By: Kacey Navarro on 05-16-2023 Cholesterol in VLDL [Mass/Vol] 33 mg/dL 5-40 [facility] Serum or plasma creatinine m easurement (mass/volume)Ordered By: Kacey Navarro on 05-16-2023 Creatinine [Mass/Vol] 1.50 mg/dL 0.70-1.30 [facility] Comment on above: The validity of the calculated GFR & GFRAA in patients over 70 years has not been determined. Clinical correlation is essential. Serum or plasma low density lipoprotein (LDL) cholesterol measurement (mass/volume)Ordered By: Kacey Navarro on 05-16-2023 Cholesterol in LDL [Mass/Vol] 42 mg/dL 0-130 [facility] Serum or plasma urea nitroge n measurement (mass/volume)Ordered By: Kacey Navarro on 05-16-2023 Urea nitrogen [Mass/Vol] 18 mg/dL 7-18 [facility] Squamous epithelial cells de tection in urine sediment by light microscopyOrdered By: Kacey Navarro on 05-16-2023 Epithelial cells.squamous LM Ql (Urine sed) 0 SEEN /hpf 0-5 [facility] Thin prep Papanicolaou smear with manual screeningOrdered By: Kacey Navarro on 05-16-2023 Thin prep Papanicolaou smear with manual screening 24 U/L 15-37 [facility] Thin prep Papanicolaou smear with manual screening 5 5-15 [facility] Urine blood detectionOrdered By: Kacey Navarro on 05-16-2023 RBC Ql (U) Negative Negative [facility] RBC Ql (U) 0-5 SEEN /hpf 0-5 [facility] Urine clarityOrdered By: Todd Navarro on 05-16-2023 Clarity (U) Clear Clear [facility] Urine color determinationOrd ered By: Kacey Navarro on 05-16-2023 Color (U) Yellow Yellow [facility] Urine creatinine measurement (mass/volume)Ordered By: Kacey Navarro on 05-16-2023 Creatinine (U) [Mass/Vol] 67.20 mg/dL NO RANGE EST. [facility] Urine glucose detectionOrder ed By: Kacey Navarro on 05-16-2023 Glucose Ql (U) 1000 mg/dl Normal [facility] Urine leukocyte esterase det ection by dipstickOrdered By: Kacey Navarro on 05-16-2023 Leukocyte esterase Test strip Ql (U) Negative Negative [facility] Urine pHOrdered By: Kacey orozco on 05-16-2023 pH (U) 6.5 [pH] 5.0 - 8.0 [facility] Urine protein measurement (m ass/volume)Ordered By: Kacey Navarro on 05-16-2023 Protein (U) [Mass/Vol] 11.3 mg/dL 0.0-11.8 [facility] Urine protein/creatinine mas s ratioOrdered By: Kacey Navarro on 05-16-2023 Protein/Creatinine (U) [Mass ratio] 168 mg/g CRE 0-200 [facility] Urine sediment bacteria coun t by microscopy (number/high power field)Ordered By: Kacey Navarro on 05-16-2023 Bacteria LM.HPF (Urine sed) [#/Area] 0 /[HPF] None Seen [facility] Urine specific gravity measu rementOrdered By: Kacey Navarro on 05-16-2023 Specific gravity (U) [Rel density] 1.010 1.002-1.030 [facility] Urobilinogen Auto test strip Ql (U)Ordered By: Kacey Navarro on 05-16-2023 Urobilinogen Ql (U) Normal mg/dl Normal [facility] Laboratory - Hematology and Cell countson 05-01-2023 HbA1c (Bld) [Mass fraction] 6.4 % 4.2-6.3 [facility] Basic metabolic 2000 panelon 02-14-2023 Anion gap [Moles/Vol] 7 mmol/L Normal 5-16 [facility] Comment on above: Order Comment: Speci men Type: BLOOD SPECIMENOrdering Facility: [facility] Address: [address] [address] Performed By: #### 2 4321-2 ####[facility]ATORYCLIA [id number] [place] [address] [place] Calcium [Mass/Vol] 8.6 mg/dL Normal 8.5-10.5 [facility] Comment on above: Order Comment: Speci men Type: BLOOD SPECIMENOrdering Facility: [facility] Address: [address] [address] Performed By: #### 2 4321-2 ####[facility]ATORYCLIA [id number] [place] [address] [place] Chloride [Moles/Vol] 107 mmol/L Normal 98-107 [facility] Comment on above: Order Comment: Speci men Type: BLOOD SPECIMENOrdering Facility: [facility] Address: [address] [address] Performed By: #### 2 4321-2 ####[facility]ATORYCLIA [id number] [place] [address] [place] CO2 [Moles/Vol] 25 mmol/L Normal 21-32 [facility] Comment on above: Order Comment: Speci men Type: BLOOD SPECIMENOrdering Facility: [facility] Address: [address] [place] [address] Performed By: #### 2 4321-2 ####[facility]ATORYCLIA [id number] [address] [place] Creatinine [Mass/Vol] 1.30 mg/dL Normal 0.50-1.40 [facility] Comment on above: Order Comment: Speci men Type: BLOOD SPECIMENOrdering Facility: [facility] Address: [address] [place] [address] Result Comment: Lali ents receiving either N-Acetylcysteine (NAC) or Metamizole prior to venipuncture, may have falsely depressed results. Performed By: #### 2 4321-2 ####[facility]ATORYCLIA [id number] [address] STATES OF [facility] ESTIMATED GLOMERULAR FILTRATION RATE 62 mL/min/1.73m??? Normal >=60 [facility] Comment on above: Order Comment: Speci men Type: BLOOD SPECIMENOrdering Facility: [facility] Address: [address] [place] [address] Result Comment: [place] mated Glomerular Filtration Rate (eGFR) is calculated using the 2020 CKD-EPI creatinine equation. This equation utilizes serum creatinine, sex, and age as parameters. The creatinine assay has traceable calibration to isotope dilution-mass spectrometry. Refer to KDIGO guidelines for clinical interpretation. In patients with unstable renal function, e.g. those with acute kidney injury, the eGFR may not accurately reflect actual GFR. Performed By: #### 2 4321-2 ####[facility]ATORYCLIA [id number] [place] [address] [place] Glucose [Mass/Vol] 241 mg/dL High 70-100 [facility] Comment on above: Order Comment: Speci men Type: BLOOD SPECIMENOrdering Facility: [facility] Address: [address] [place] [address] Result Comment: The [place] [employer] (ADA) provides guidance for cutoff values for fasting glucose and random glucose. The ADA defines fasting as no caloric intake for at least 8 hours. Fasting plasma glucose results between 100 to 125 mg/dL indicate increased risk for diabetes (prediabetes). Fasting plasma glucose results greater than or equal to 126 mg/dL meet the criteria for diagnosis of diabetes. In the absence of unequivocal hyperglycemia, results should be confirmed by repeat testing. In a patient with classic symptoms of hyperglycemia or hyperglycemic crisis, random plasma glucose results greater than or equal to 200 mg/dL meet the criteria for diagnosis of diabetes. Reference: Standards of Medical Care in Diabetes 2016, [place] [employer]. Diabetes Care. 2016.39(Suppl 1). Results may be falsely elevated after the administration of Sulfapyridine. Results may be falsely depressed after the administration of Sulfasalazine. Performed By: #### 2 4321-2 ####[facility]ATORYCLIA [id number] [place] [address] [place] Potassium [Moles/Vol] 4.4 mmol/L Normal 3.5-5.1 [facility] Comment on above: Order Comment: Speci men Type: BLOOD SPECIMENOrdering Facility: [facility] Address: [address] [place] [address] Performed By: #### 2 4321-2 ####[facility]ATORYCLIA [id number] [place] [address] [place] Sodium [Moles/Vol] 139 mmol/L Normal 136-145 [facility] Comment on above: Order Comment: Speci men Type: BLOOD SPECIMENOrdering Facility: [facility] Address: [address] [place] [address] Performed By: #### 2 4321-2 ####[facility]ATORYCLIA [id number] [place] [address] [place] Urea nitrogen [Mass/Vol] 25 mg/dL Normal 7-26 [facility] Comment on above: Order Comment: Speci men Type: BLOOD SPECIMENOrdering Facility: [facility] Address: [address] [address] Performed By: #### 2 4321-2 ####[facility]ATORYCLIA [id number] [address] [place] CBC panel Auto (Bld)on 02-14 Erythrocyte distribution width (RBC) [Ratio] 11.8 % Normal 11.5-15.0 [facility] Comment on above: Order Comment: Speci men Type: BLOOD SPECIMENOrdering Facility: [facility] Address: [address] [address] Performed By: #### 5 8410-2 ####[facility]ATORYCLIA [id number] [address] [place] Hematocrit (Bld) [Volume fraction] 37.3 % Low 39.0-51.0 [facility] Comment on above: Order Comment: Speci men Type: BLOOD SPECIMENOrdering Facility: [facility] Address: [address] [address] Performed By: #### 5 8410-2 ####[facility]ATORYCLIA [id number] [address] [place] Hemoglobin (Bld) [Mass/Vol] 12.4 g/dL Low 13.0-17.0 [facility] Comment on above: Order Comment: Speci men Type: BLOOD SPECIMENOrdering Facility: [facility] Address: [address] [address] Performed By: #### 5 8410-2 ####[facility]ATORYCLIA [id number] [address] [place] MCH (RBC) [Entitic mass] 30.8 pg Normal 26.0-34.0 [facility] Comment on above: Order Comment: Speci men Type: BLOOD SPECIMENOrdering Facility: [facility] Address: [address] [address] Performed By: #### 5 8410-2 ####[facility]ATORYCLIA [id number] [address] [place] MCHC (RBC) [Mass/Vol] 33.2 g/dL Normal 30.5-36.0 [facility] Comment on above: Order Comment: Speci men Type: BLOOD SPECIMENOrdering Facility: [facility] Address: [address] [place] [address] Performed By: #### 5 8410-2 ####[facility]ATORYCLIA [id number] [place] [address] [place] MCV (RBC) [Entitic vol] 92.8 fL Normal 80.0-100.[address] [facility] Comment on above: Order Comment: Speci men Type: BLOOD SPECIMENOrdering Facility: [facility] Address: [address] [place] [address] Performed By: #### 5 8410-2 ####[facility]ATORYCLIA [id number] [place] [address] [place] Nucleated RBC (Bld) [#/Vol] 10*3/uL Normal <0.01 [facility] Comment on above: Order Comment: Speci men Type: BLOOD SPECIMENOrdering Facility: [facility] Address: [address] [place] [address] Performed By: #### 5 8410-2 ####[facility]ATORYCLIA [id number] [place] [address] [place] Platelet mean volume (Bld) [Entitic vol] 9.0 fL Normal 9.0-12.7 [facility] Comment on above: Order Comment: Speci men Type: BLOOD SPECIMENOrdering Facility: [facility] Address: [address] [address] Performed By: #### 5 8410-2 ####[facility]ATORYCLIA [id number] [place] [address] [place] Platelets (Bld) [#/Vol] 185 10*3/uL Normal 150-400 [facility] Comment on above: Order Comment: Speci men Type: BLOOD SPECIMENOrdering Facility: [facility] Address: [address] [place] [address], [place] [address] Performed By: #### 5 8410-2 ####[facility]ATORYCLIA [id number] [address] RBC (Bld) [#/Vol] 4.02 10*6/uL Low 4.20-6.00 [facility] [facility] Comment on above: Order Comment: Speci men Type: BLOOD SPECIMENOrdering Facility: [facility] Address: [address] Performed By: #### 5 8410-2 ####[facility] LABORATORYCLIA [id number] [place] [id number] [facility] WBC (Bld) [#/Vol] 9.39 10*3/uL Normal 3.70-11.00 [facility] Comment on above: Order Comment: Speci men Type: BLOOD SPECIMENOrdering Facility: [facility] Address: [place] [address] Performed By: #### 5 8410-2 ####[facility] LABORATORYCLIA [id number] [address] CONSULT PROGon 02-14-2023 CONSULT PROG HNO ID: [id number] Author: Savana Camarena APRN.DENTAL TECHNOLOGIST Service: ? Author Type: Nurse Practitioner Type: Consult Progress Note Filed: 02/14/2023 1:23 PM Note Text: Hospitalist SERVICE CONSULT PROGRESS NOTE SERVICE DATE: 02/14/2023 SERVICE TIME: 1:20 PM Subjective INTERVAL HPI: Patient seen and evaluated lying in bed in room. States his blood sugars have been in the 200s, he is not getting full amount of insulin that he takes at home. Went over insulin home doses and dosing change at this time. Patient denies chest pain or shortness of breath. No acute events overnight per nursing. Current Facility-Administered Medications Medication Dose Route Frequency [...] 0.9% iv infusion 75 mL/hr INTRAVENOUS CONTINUOUS dextrose 40 % 15 g 15 g [...] injection (rapid acting) (HumaLOG) SUBCUTANEOUS AT BEDTIME [START ON 02/15/2023] insulin lispro 30 Units injection (rapid acting) (HumaLOG) 30 Units SUBCUTANEOUS DAILY wLUNCH And [START ON 02/15/2023] insulin lispro 20 Units injection (rapid acting) (HumaLOG) 20 Units SUBCUTANEOUS DAILY WITH BREAKFAST And insulin lispro 40 Units injection (rapid acting) (HumaLOG) 40 Units SUBCUTANEOUS DAILY wDINNER Objective PHYSICAL EXAM: Physical Exam Performed: GENERAL: Alert, no distress, cooperative SKIN: Skin color, texture, turgor normal. No rashes or lesions. LUNGS: Lungs clear to auscultation, Good diaphragmatic excursion CARDIAC: Normal S1 and S2; no rubs, murmurs, or gallops ABDOMEN: Abdomen soft, non-tender, BS normal, No masses or organomegaly EXTREMITIES: Extremities normal, no deformities, edema, clubbing or skin discoloration. Good capillary refill., No ulcers NEURO: Gait normal. Reflexes normal and symmetric. Sensation grossly intact, Cranial nerves II-XII intact PULSES: 2+ radial, 2+ carotid BP 120/66 Pulse 90 Temp (Src) 98.6 (Oral) Resp 18 Ht 5' 6 (1.68m) Wt 259 lb 12.8 oz (117.8kg) SpO2 95% BMI 41.95 kg/(m2). O2 Therapy: Room Air DATA: Diagnostic tests reviewed for today's visit: Most recent labs and imaging results. Impression/Recommendati ons Active Problems: Obesity, Class III, BMI >= 40 POA: Yes Assessment AND Plan: BMI 41.93, recommend weight loss Spondylolisthesis of lumbar region POA: Yes Assessment AND Plan: Status post L4-5 posterior lateral fusion with instrumentation and decompression on 02/13/[address] Leger. Postop day #1. Surgery managing. DVT and GI prophylaxis per surgeon. Encourage incentive spirometry. Hypertension Continue lisinopril 20 mg daily, blood pressure 120/66 COPD Does not appear to be in acute exacerbation, currently oxygenating adequately on room air, continue on oral Ellipta Hyperlipidemia Continue will Lipitor 20 mg at bedtime GERD Continue Protonix 20 mg twice daily Resolved Problems: * No resolved hospital problems. * SIGNATURE: Savana Camarena APRN.THUY PATIENT NAME: Vlad Siddiqi DATE: February 14, 2023 TIME: 1:20 PM PAGER: [facility] THERAPY NTon 02-14-2023 THERAPY NT HNO ID: [id number] Author: Génesis Kapadia PTA Service: Physical Therapy Author Type: Vehicle Body Sander Type: Therapy (PT/OT/Speech/Resp) Filed: 02/14/2023 10:33 AM Note Text: Attestation signed by Joelle Clarke PT at 02/14/2023 12:04 PM I reviewed and agree with the documentation corresponding to this therapy visit. SIGNATURE: Joelle Clarke PT DATE: February 14, 2023 TIME: 12:03 PM Physical Therapy Treatment SERVICE DATE: 02/14/2023 SERVICE TIME: 35 to 1014 ROOM: [id number] Total Joint Replacement Discharge Readiness: Cleared from Physical Therapy Recommended Discharge Disposition: Home Recommended Discharge Equipment: Wheeled Walker PT 6 Clicks Score: 18 Precautions/Activity Restrictions: Spine, Lines/Tubes/Drains Precaution/Activity Restriction Comments: spinal precautions, log roll, brace when OOB, hemovac Current Hospital Course: Spinal stenosis with symptoms of neurogenic claudication L4-5, degenerative spinal listhesis L4-5 Reason for Hospital Admission: s/p L4-[address] Leger on 02/13/23 Relevant Past Medical History: DM, HTN, HLP, carpal tunnel, Response to Therapy Interventions: Good Participation in Activities Assessment Comments: Patient responded well to today's visit. Patient supervision level for all mobility performed this date. Physical Therapy Problem List: Functional Mobility Impairment Treatment Interventions: Education Home Environment Patient Lives With: Spouse Assistance Available: 24-Hour Entry To Home: Stairs, Without Rail Number Of Stairs Into Home: 1 Number Of Stairs To Bed/Bath: 13 Stairs to Bed/Bath with: Unilateral Rail Tub/Shower Type: Full bath on first- WIS and tub shower combo. 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 Indep with ADL with difficulty and extra time. Shares cooking and cleaning with . Drive. Work FT. Baseline Cognition: Oriented to self, Oriented to place, Oriented to time, Oriented to situation Patient Report: It feels good to walk CURRENT FUNCTIONAL STATUS: Most recent performance Current Functional Mobility Assist Level Additional Information Rolling Supervision Supine to Sit Supervision log roll Sit to Supine Supervision, Additional Information log roll Scooting Supervision Sit to Stand Supervision Stand to Sit Supervision Bed to Chair Supervision Bed To Chair Transfer Type: Stepping Bed To Chair Transfer Equipment: Wheeled Walker Toilet/Commode Gait Supervision Gait Device: Wheeled Walker Gait Distance (feet): 110 feet x 1, 500 feet x 1 . Stairs Supervision Stairs Device: Rail Number of Stairs: 10 Curb Step Car Transfer Supervision Blank marie indicate activity not attempted Balance: Static Sitting, Dynamic Sitting, Static Standing, Dynamic Standing Static Sitting Balance: Normal Patient able to maintain steady balance without handhold support Dynamic Sitting Balance: Normal Patient accepts maximal challenge and can shift weight easily within full range in all directions Static Standing Balance: Normal Patient able to maintain steady balance without handhold support Dynamic Standing Balance: Normal Patient accepts maximal challenge and can shift weight easily within full range in all directions -HLM: 8: Walk 250 feet or more Learning/Educational Needs: Discharge Plan Goals for Plan of Care: Patient/Caregiver Goals: Go Home Goals: Patient will demonstrate progress to optimize functional mobility, maximize activity tolerance and endurance to maximize function upon discharge. Able to Perform HEP with: Independent Transfer Supine to/from Sit with: Supervision Transfer Sit to/from Stand with: Supervision Ambulate with: Supervision Distance: 50 Device: Wheeled Walker Ambulate Up and Down Steps with: Stand By Assistance Number of Steps: 1 Progress Toward Goals: Progressing as expected Rehab Potential: Excellent Patient will be discontinued from Physical Therapy when no further skilled needs are identified in this setting. PLAN: PT Frequency: Discontinue therapy services Reasons Therapy Services Discontinued: Goals met (Spoke to supervising PT Ela who approved.) Plan of Care developed with: Patient TREATMENT INTERVENTIONS: Therapy Diagnosis: Reduced mobility-other Interventions Provided: Gait Training (89839) Gait Training (96767) Treatment Minutes: 39 $ Gait Training (54362) Billed Units: 3 units Training AND Education Provided in: Advanced Balance Activities, Anatomy and Impact on Deficits, Assistive Device Use, Bed Mobility, Benefits of In-Hospital Mobil (more content not included)... [facility] THERAPY NT HNO ID: [id number] Author: Hafsa Preston, OTR/L Service: Occupational Therapy Author Type: Occupational Therapist Type: Therapy (PT/OT/Speech/Resp) Filed: 02/14/2023 8:30 AM Note Text: Occupational Therapy Evaluation SERVICE DATE: 02/14/2023 SERVICE TIME: 726 to 750 ROOM: [id number] Recommended Discharge Disposition: Home Recommended Discharge Disposition Comments: pt would benefit from cont OT services OT 6 Clicks Score: 19 Precautions/Activity Restrictions: Spine, Lines/Tubes/Drains Precaution/Activity Restriction Comments: spinal precautions, log roll, brace when OOB, hemovac Current Hospital Course: Spinal stenosis with symptoms of neurogenic claudication L4-5, degenerative spinal listhesis L4-5 Reason for Hospital Admission: s/p L4-[address] Leger on 02/13/23 Relevant Past Medical History: DM, HTN, HLP, carpal tunnel, Response to Therapy Interventions: Good Participation in Activities Continued Skilled Needs Due to: Safety Concerns, Functional Impairment Occupational Therapy Problem List: Safety Deficits, Impaired Self Care Cognition/Communication Deficits Responsiveness: Alert Follows Commands: 3-step Commands Treatment Interventions: Education, Self Care/Home Management Plan for Next Visit: Bathing Training, Bed Mobility, Chair/Commode Transfer Training, Dressing Training, Edema Management, Energy Conservation, Fall Prevention, Grooming Training, Sit to Stand Transfers, Standing Balance, Standing Tolerance Home Environment Patient Lives With: Spouse Assistance Available: 24-Hour Entry To Home: Stairs, Without Rail Number Of Stairs Into Home: 1 Number Of Stairs To Bed/Bath: 13 Stairs to Bed/Bath with: Unilateral Rail Tub/Shower Type: Full bath on first- WIS and tub shower combo. 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 Indep with ADL with difficulty and extra time. Shares cooking and cleaning with . Drive. Work FT. 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 Highest Level of Education: College/Professional Trade Occupational Factors Life Roles: Spouse/Significant Other, Family Member Identified Strengths: Good Support System Identified Barriers: Difficulty with ADLs/IADLs Patient Report: How long until I can stand for 45 mins CURRENT FUNCTIONAL STATUS: Most recent performance Current Activities of Daily Living Assist Level Additional Information Feeding Independent Grooming Supervision Bathing Upper Body Supervision Bathing Lower Body Minimal Assistance Dressing Upper Body Supervision Dressing Lower Body Minimal Assistance, Additional Information assist to thread kanu LE into underwear and pants, able to pull up over hips in standing Toileting Supervision Instrumental Activities of Daily Living Assist Level Additional Information Meal/Beverage Prep Cleaning Laundry Medication Management with Strategies Functional Mobility Assist Level Additional Information Rolling Supine to Sit Supervision, Additional Information log roll, pt holding breath, cues for breathing throughout Sit to Supine Supervision Scooting Sit to Stand Stand to Sit Bed to Chair Toilet/Commode Supervision, Additional Information cues for hand placement Shower Functional Mobility Supervision, Additional Information Wheeled Walker good pacing, no LOB, denied dizziness; in home functional distances ~250ft Blank marie indicate activity not attempted Range of Motion: WFL Strength: WFL Balance: Dynamic Sitting, Dynamic Standing Dynamic Sitting Balance: Good Patient accepts moderate challenge, able to maintain balance while picking up object off floor Dynamic Standing Balance: Fair Patient accepts minimal challenge, able to maintain balance while turning head/trunk Learning/Educational Needs: Safety, Self Care, Plan of Care, Precautions Goals for Plan of Care: Patient/Caregiver Goals: Reduce ADL/IADL barriers Goals: Patient will demonstrate understanding of importance of mobility during hospital stay and resolve all self-care, cognitive and/or coping needs identified. Grooming with: Supervision Upper Body Bathing with: Supervision Upper Body Dressing with: Supervision Lower Body Bathing with: Supervision Lower Body Dressing with: Supervision Toilet Hygiene with: Supervision Chair Transfer with: Supervision Toilet Transfer with: Supervision Rehab Potential: Excellent Patient will be discontinued from Occupational Therapy when no further skilled needs are identified in this setting. PLAN: OT Frequency: 6 times per week Plan of Care developed with: Patient TREATMENT INTERVENTIONS: (more content not included)... Normal [facility] ANES POSTPROC EVALon 023 ANES POSTPROC EVAL HNO ID: [id number] Author: Maxi Villavicencio DO Service: ? Author Type: Physician Type: Anesthesia Postprocedure Evaluation Filed: 02/13/2023 11:39 AM Note Text: POST ANESTHESIA EVALUATION NOTE : 1960 Procedure Summary Date: 02/13/23 Room / Location: [facility] OR 05 / OR Anesthesia Start: 740 Anesthesia Stop: 1047 Procedures: FUSION LUMBAR POSTERIOR LEVEL 1 (Spine Lumbar) POSTERIOR NON-SEGMENTAL INSTRUMENTATION FOLLOWING LUMBAR FUSION 1 LEVEL PDFI (Spine Lumbar) DECOMPRESSION LAMINECTOMY LUMBAR POSTERIOR LEVEL 1 (Spine Lumbar) DECOMPRESSION LAMINECTOMY 1ST ADD'L LUMBAR SEGMENT (Spine Lumbar) BONE MARROW ASPIRATION FOR BONE GRAFTING,SPINE SURGERY ONLY,VIA SEPARATE SKIN OR FASCIAL INCISION (Spine Lumbar) AUTOGRAFT FOR SPINE SURGERY ONLY, OBTAINED FROM SAME INCISION (Spine Lumbar) ALLOGRAFT FOR SPINE SURGERY MORSELIZED (Spine Lumbar) Diagnosis: Spondylolisthesis of lumbar region 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 Displacement of lumbar intervertebral disc without myelopathy Intervertebral disc 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 (Spondylolisthesis of lumbar region [M43.16]) (Degeneration of lumbar intervertebral disc [M51.36]) (Pseudoclaudication syndrome [M48.062]) (Displacement of lumbar intervertebral disc without myelopathy [M51.26]) (Intervertebral disc stenosis of neural canal of lumbar region [M99.53]) (Osteophyte of spine [M25.78]) Surgeons: Nik Leger DO Responsible Provider: Maxi Villavicencio DO Anesthesia Type: general ASA Status: 3 Anesthesia Type: general Airway Type: ETT Last Vitals Vitals Value Taken Time BP 122/65 02/13/23 1130 Temp 36.8 ?C (98.2 ?F) 02/13/23 1045 Pulse 85 02/13/23 1138 Resp 18 02/13/23 1130 SpO2 95 % 02/13/23 1138 Vitals shown include unvalidated device data. Post Anesthesia Patient Status Patient Evaluation: PACU. PACU/ICU Patient Condition: stable. Anticipated Disposition: inpatient floor planned admission. Neurological Status: aware and responsive. Pulmonary Status: breathing comfortably on supplemental oxygen Airway Control: returned to baseline unsupported. Cardiovascular Status: stable. Pain Management: clinically adequate Postoperative Hydration: acceptable. Intraoperative Events: no significant anesthesia events Post Operative Nausea/Vomiting Status: no significant post operative nausea or vomiting Recommendation: further care per PACU/ICU/floor team. Anesthesia Observations No Documentation SIGNATURE: Maxi Villavicencio DO PATIENT NAME: Vlad Siddiqi DATE: February 13, 2023 TIME: 11:39 AM CSN: [id number] [facility] ANES PRE-OPon 02-13-2023 ANES PRE-OP HNO ID: [id number] Author: Maxi Villavicencio DO Service: ? Author Type: Physician Type: Anesthesia Preprocedure Evaluation Filed: 02/13/2023 7:05 AM Note Text: ANESTHESIOLOGY DAY OF SURGERY NOTE : 1960 Procedure Information Date/Time: 02/13/2330 Procedures: FUSION LUMBAR POSTERIOR LEVEL 1 (Spine Lumbar) POSTERIOR NON-SEGMENTAL INSTRUMENTATION FOLLOWING LUMBAR FUSION 1 LEVEL PDFI (Spine Lumbar) DECOMPRESSION LAMINECTOMY LUMBAR POSTERIOR LEVEL 1 (Spine Lumbar) DECOMPRESSION LAMINECTOMY 1ST ADD'L LUMBAR SEGMENT (Spine Lumbar) BONE MARROW ASPIRATION FOR BONE GRAFTING,SPINE SURGERY ONLY,VIA SEPARATE SKIN OR FASCIAL INCISION (Spine Lumbar) AUTOGRAFT FOR SPINE SURGERY ONLY, OBTAINED FROM SAME INCISION (Spine Lumbar) ALLOGRAFT FOR SPINE SURGERY MORSELIZED (Spine Lumbar) Location: OR 05 / OR Surgeons: Nik Leger DO Estimated body mass index is 41.93 kg/m? as calculated from the following: Height as of this encounter: 167.6 cm (5' 6). Weight as of this encounter: 117.8 kg (259 lb 12.8 oz). Most recent hematocrit and potassium results: Hematocrit 43.6 01/31/2023 Potassium 4.3 01/31/2023 Relevant Problems CARDIO (+) Hypertension ENDO (+) Type 2 diabetes mellitus (HCC) NEURO-PSYCH (+) Personal history of colonic polyps I - PHYSICAL EVALUATION AIRWAY Patient intubated: No. Tracheostomy tube not present Mallampati: III. TM distance: >3 FB. Neck ROM: full ROM without neurological symptoms. Mouth opening: adequate. Short neck: no. Thick neck: yes DENTAL Dental findings: poor dentition. II - ANESTHESIA PLAN ASA Score: 3 Anesthetic Plan: general Airway type: ETT NPO Status: adequate Beta Zo Monitoring Plan Monitoring plan: standard ASA. Post Procedure Analgesic Plan Postoperative analgesic plan: parenteral or oral opioids and multimodal analgesia. Informed Consent Anesthetic risks, benefits, alternatives, personnel and consent discussed: yes. Patient / Responsible Libertarian agrees to proceed: yes Patient / Surrogate agrees to blood products: Yes Vitals Value Taken Time BP 160/90 02/13/23651 Pulse 101 02/13/23651 Resp 18 02/13/23651 Temp 36.6 ?C (97.9 ?F) 02/13/23651 SpO2 95 % 02/13/23651 Facility-Administered Medications as of 02/13/2023 Medication Dose Route Frequency - povidone-iodine 10 % solution (BETADINE) TOPICAL Pre-Op Once - clindamycin iv piggyback 900 mg in D5W 50 mL (CLEOCIN) 900 mg INTRAVENOUS Pre-Op Once - lidocaine (PF) 10 mg/mL (1 %) 1-2 mg injection (XYLOCAINE) 0.1-0.2 mL INTRADERMAL PRN - lactated ringers iv infusion 5-30 mL/hr INTRAVENOUS CONTINUOUS - NaCl 0.9% iv flush bag 20 mL INTRAVENOUS PRN Outpatient Medications as of 02/13/2023 Medication Sig - insulin lispro (HUMALOG PEN SUBCUTANEOUS) Inject subcutaneously three times daily. 65 units with breakfast, 30 units with lunch, 45 units with supper - oxyCODONE-acetaminophen (PERCOCET) 5325 mg per tablet Take 1 tablet by mouth twice daily as needed (pain). 5-325mg - ygqxkbfenqv-ompxihqpv-y ilanter (TRELEGY ELLIPTA) 100-62.5-25 mcg inhalation powder Inhale 1 Puff as instructed every evening. - omeprazole (PRILOSEC) 20 mg capsule Take 20 mg by mouth twice daily. - cholecalciferol (VITAMIN D3) 5,000 unit tab Take 5,000 Units by mouth once daily. - pregabalin (LYRICA) 100 mg capsule Take 100 mg by mouth three times daily. - loratadine (CLARITIN) 10 mg tablet Take 10 mg by mouth every morning. - Tadalafil (CIALIS) 10 mg tablet Take 10 mg by mouth as needed. - ubidecarenone Q-10 (COENZYME Q-10) 10 mg cap Take 100 mg by mouth once daily. - albuterol HFA (PROVENTIL HFA, VENTOLIN HFA) 90 mcg/actuation inhaler Inhale 1 Puff as instructed as needed. - insulin aspart (NOVOLOG FLEXPEN) 100 unit/mL inpn Inject 20 units sc at breakfast, 25 units at lunch, 30 units at supper. (Patient taking differently: As needed per implanted glucose monitor) - [place]-3 Fatty Acids 500 mg cap Take 1,000 mg by mouth twice daily. - lisinopril (ZESTRIL, PRINIVIL) 20 mg tablet Take 20 mg by mouth every morning. - atorvastatin (LIPITOR) 20 mg tablet Take 20 mg by mouth daily at bedtime. - aspirin, enteric coated (ASPIRIN, ENTERIC COATED) 81 mg EC tablet Take 81 mg by mouth once daily. DO NOT crush., to hold [address] Leger, to check with Dr Navarro - multivitamin ORAL tablet Take 1 tablet by mouth once daily. Last dose over 2 weeks prior to surgery - Insulin [place], Disposable, (PEN NEEDLES) 31 gauge x 1/4 ndle For insulin injection 3x daily. - blood sugar diagnostic Misc test strip before meals and at bedtime. accu check test strips Use as instructed 3-4 times daily. - COMPOUNDED PRESCRIPTION BLOOD PRESSURE CUFF FOR HOME USE. DX: LABILE BLOOD PRESSURE I have interviewed and examined the patient. I have reviewed the medical record and/or the pre-anesthesia evaluation, pertinent labs, and test results. This contains (more content not included)... [facility] BRIEF OP NOTon 02-13-2023 BRIEF OP NOT HNO ID: [id number] Author: Nik Leger DO Service: Orthopaedic Surgery Author Type: Physician Type: Brief Op Note Filed: 02/13/2023 10:20 AM Note Text: BRIEF OPERATIVE / PROCEDURE NOTE LOG ID: [id number] SURGERY/PROCEDURE DATE: 02/13/2023 INCISION/PROCEDURE START TIME: 8:20 AM INCISION CLOSE/PROCEDURE END TIME: SURGEON(S)/PROCEDURALIS T(S) AND DENTAL BILLING SPECIALIST(S): Surgeon(s) and Role: * Nik Leger DO - Primary Watch Inspector Final Movement: John Young SA SURGERY/PROCEDURE(S): Posterior lateral fusion with instrumentation and decompression L4-5 ANESTHESIA: General FINDINGS: See dictation ESTIMATED BLOOD LOSS: 125 mls SPECIMENS: None COMPLICATIONS: None DRAINS: Hemovac drain CLOSURE TECHNIQUE: Primary PRE-OP/PRE-PROCEDURE DIAGNOSIS: Spinal stenosis with symptoms of neurogenic claudication L4-5, degenerative spinal listhesis L4-5 POST-OP/POST-PROCEDURE DIAGNOSIS: Same as Preop SIGNATURE: Nik Leger DO PATIENT NAME: Vlad Siddiqi DATE: February 13, 2023 TIME: 10:19 AM Normal [facility] Basic metabolic 2000 panelon 02-13-2023 Anion gap [Moles/Vol] 7 mmol/L Normal 5-16 [facility] Comment on above: Order Comment: Speci men Type: BLOOD SPECIMENOrdering Facility: [facility] Address: [address] [place] [address] Performed By: #### 2 4321-2 ####[facility] LABORATORYCLIA [id number] [place] [address] [place] Calcium [Mass/Vol] 9.3 mg/dL Normal 8.5-10.5 [facility] Comment on above: Order Comment: Speci men Type: BLOOD SPECIMENOrdering Facility: [facility] Address: [address] [place] [address] Performed By: #### 2 4321-2 ####[facility] LABORATORYCLIA [id number] [place] [address] [place] Chloride [Moles/Vol] 106 mmol/L Normal 98-107 [facility] Comment on above: Order Comment: Speci men Type: BLOOD SPECIMENOrdering Facility: [facility] Address: [address] [place] [address] Performed By: #### 2 4321-2 ####[facility] LABORATORYCLIA [id number] [place] [address] [place] CO2 [Moles/Vol] 26 mmol/L Normal 21-32 [facility] Comment on above: Order Comment: Speci men Type: BLOOD SPECIMENOrdering Facility: [facility] Address: [address] [id number] Performed By: #### 2 4321-2 ####[facility] LABORATORYCLIA [id number] [place] [address] [place] Creatinine [Mass/Vol] 1.33 mg/dL Normal 0.50-1.40 [facility] Comment on above: Order Comment: Specalberto men Type: BLOOD SPECIMENOrdering Facility: [facility] Address: [address] [place] [address] Result Comment: Lali ents receiving either N-Acetylcysteine (NAC) or Metamizole prior to venipuncture, may have falsely depressed results. Performed By: #### 2 4321-2 ####[facility] LABORATORYCLIA [id number] [address] OF [facility] ESTIMATED GLOMERULAR FILTRATION RATE 60 mL/min/1.73m??? Normal >=60 [facility] Comment on above: Order Comment: Soraida men Type: BLOOD SPECIMENOrdering Facility: [facility] [facility] Address: [address] [address] Result Comment: Germania mated Glomerular Filtration Rate (eGFR) is calculated using the 2020 CKD-EPI creatinine equation. This equation utilizes serum creatinine, sex, and age as parameters. The creatinine assay has traceable calibration to isotope dilution-mass spectrometry. Refer to KDIGO guidelines for clinical interpretation. In patients with unstable renal function, e.g. those with acute kidney injury, the eGFR may not accurately reflect actual GFR. Performed By: #### 2 4321-2 ####[facility] LABORATORYCLIA [id number] [place] [address] [place] Glucose [Mass/Vol] 272 mg/dL High 70-100 [facility] Comment on above: Order Comment: Soraida montoya Type: BLOOD SPECIMENOrdering Facility: [facility] Address: [address] [address] Result Comment: The [place] Diabetes Association (ADA) provides guidance for cutoff values for fasting glucose and random glucose. The ADA defines fasting as no caloric intake for at least 8 hours. Fasting plasma glucose results between 100 to 125 mg/dL indicate increased risk for diabetes (prediabetes). Fasting plasma glucose results greater than or equal to 126 mg/dL meet the criteria for diagnosis of diabetes. In the absence of unequivocal hyperglycemia, results should be confirmed by repeat testing. In a patient with classic symptoms of hyperglycemia or hyperglycemic crisis, random plasma glucose results greater than or equal to 200 mg/dL meet the criteria for diagnosis of diabetes. Reference: Standards of Medical Care in Diabetes 2016, [place] Diabetes Association. Diabetes Care. 2016.39(Suppl 1). Results may be falsely elevated after the administration of Sulfapyridine. Results may be falsely depressed after the administration of Sulfasalazine. Performed By: #### 2 4321-2 ####[facility] LAB[facility]ATORYCLIA [id number] [place] [address] [place] Potassium [Moles/Vol] 4.2 mmol/L Normal 3.5-5.1 [facility] Comment on above: Order Comment: Speci men Type: BLOOD SPECIMENOrdering Facility: [facility] Address: [address] [place] [address] Performed By: #### 2 4321-2 ####[facility] LABORATORYCLIA [id number] [place] [address] [place] Sodium [Moles/Vol] 139 mmol/L Normal 136-145 [facility] Comment on above: Order Comment: Speci men Type: BLOOD SPECIMENOrdering Facility: [facility] Address: [address] [place] [address] Performed By: #### 2 4321-2 ####[facility] LABORATORYCLIA [id number] [place] [address] [place] Urea nitrogen [Mass/Vol] 20 mg/dL Normal 7-26 [facility] Comment on above: Order Comment: Speci men Type: BLOOD SPECIMENOrdering Facility: [facility] Address: [address] [address] Performed By: #### 2 4321-2 ####[facility] LABORATORYCLIA [id number] [place] [address] [place] CONFIRM BLOOD TYPEon 06-06-2 023 ABO O Normal [facility] Comment on above: Order Comment: Speci men Type: BLOOD SPECIMENOrdering Facility: [facility] Address: [address] [address] Performed By: #### C ONABO ####[facility] BLOOD BANKCLIA [id number] [address] Rh Nom (Bld) Positive Normal [facility] Comment on above: Order Comment: Speci men Type: BLOOD SPECIMENOrdering Facility: [facility] Address: [address] [address] Performed By: #### C ONABO ####[facility] BLOOD BANKCLIA [id number] [address] CONSULTon 02-13-2023 CONSULT HNO ID: [id number] Author: Vicki Gonzalez MD Service: Hospital Medicine Author Type: Physician Type: Consults Filed: 02/13/2023 5:56 PM Note Text: CONSULT NOTE SERVICE DATE: 02/13/2023 SERVICE TIME: 12:08 PM PRIMARY CARE PHYSICIAN: Kacey Navarro MD Admitting Provider: Nik Leger DO REASON FOR CONSULT: Medical management HOSPITAL DAY # 0FUSION LUMBAR POSTERIOR LEVEL 1 (Spine Lumbar) POSTERIOR NON-SEGMENTAL INSTRUMENTATION FOLLOWING LUMBAR FUSION 1 LEVEL PDFI (Spine Lumbar) DECOMPRESSION LAMINECTOMY LUMBAR POSTERIOR LEVEL 1 (Spine Lumbar) DECOMPRESSION LAMINECTOMY 1ST ADD'L LUMBAR SEGMENT (Spine Lumbar) BONE MARROW ASPIRATION FOR BONE GRAFTING,SPINE SURGERY ONLY,VIA SEPARATE SKIN OR FASCIAL INCISION (Spine Lumbar) AUTOGRAFT FOR SPINE SURGERY ONLY, OBTAINED FROM SAME INCISION (Spine Lumbar) ALLOGRAFT FOR SPINE SURGERY MORSELIZED (Spine Lumbar) HPI: The patient is a 63 year old male past medical history of diabetes mellitus type 2 insulin-dependent, COPD, hypercholesterolemia, hypertension, GERD, peripheral neuropathy, COPD who is status post lumbar surgery. Sound physicians have been consulted for medical management while patient is admitted to the hospital. PAST MEDICAL HISTORY Diagnosis Date Acid reflux controlled with medication Allergic rhinitis, cause unspecified Arthritis back and hands Asthma Sees Dr Mendez, controlled with inhalers Benign neoplasm of colon Chronic kidney disease, stage III (moderate) ([facility]) followed by PCP Diabetic neuropathy (HCC) slight in feet Essential hypertension, benign bp controlled with medication-followed by PCP Family history of malignant neoplasm of gastrointestinal tract family history of colon cancer Family history of malignant neoplasm of gastrointestinal tract Generalized osteoarthrosis, unspecified site back H/O cardiovascular stress test 01/23/2023 at [facility] Herpes zoster without mention of complication [...] DX W/COLLJ SPEC WHEN PFRMD 09/13/2006 repeat c5p-FIp COLONOSCOPY FLX DX W/COLLJ SPEC WHEN PFRMD [...] Heart Disease Paternal Grandfather Diabetes Paternal Grandfather Social History Tobacco Use Smoking status: Never Passive exposure: Past Smokeless tobacco: Never Vaping Use Vaping Use: Never used Substance Use Topics Alcohol use: Never Drug use: Never HOME MEDS: oxyCODONE-acetaminophen (PERCOCET) 5325 mg per tablet, Take 1 tablet by mouth twice daily as needed (pain). 5-325mg, Disp: , Rfl: , 02/13/2023 at 0430 ymamueconrv-vaadoymyt-z ilanter (TRELEGY ELLIPTA) 100-62.5-25 mcg inhalation powder, Inhale 1 Puff as instructed every evening., Disp: , Rfl: , 02/13/2023 at 0430 omeprazole (PRILOSEC) 20 mg capsule, Take 20 mg by mouth twice daily., Disp: , Rfl: cholecalciferol (VITAMIN D3) 5,000 unit tab, Take 5,000 Units by mouth once daily., Disp: , Rfl: pregabalin (LYRICA) 100 mg capsule, Take 100 mg by mouth three times daily., Disp: , Rfl: , 02/13/2023 at 0430 loratadine (CLARITIN) 10 mg tablet, Take 10 mg by mouth every morning., Disp: , Rfl: , 02/13/2023 at 0430 Tadalafil (CIALIS) 10 mg tablet, Take 10 mg by mouth as needed., Disp: , Rfl: ubidecarenone Q-10 (COENZYME Q-10) 10 mg cap, Take 100 mg by mouth once daily., Disp: , Rfl: albuterol HFA (PROVENTIL HFA, VENTOLIN HFA) 90 mcg/actuation inhaler, Inhale 1 Puff as instructed as needed. , Disp: , Rfl: , 02/13/2023 at 0430 [place]-3 Fatty Acids 500 mg cap, Take 1,000 mg by mouth twice daily., Disp: , Rfl: lisinopril (ZESTRIL, PRINIVIL) 20 mg tablet, Take 20 mg by mouth every morning., Disp: , Rfl: atorvastatin (LIPITOR) 20 mg tablet, Take 20 mg by mouth daily at bedtime., Disp: , Rfl: aspirin, ent (more content not included)... Normal [facility] HISTORY PHYSICALon 3 HISTORY PHYSICAL HNO ID: [id number] Author: Nik Leger DO Service: ? Author Type: Physician Type: HANDP Filed: 02/13/2023 7:29 AM Note Text: UPDATED HISTORY AND PHYSICAL EXAMINATION SERVICE DATE: 02/13/2023 SERVICE TIME: 7:28am PHYSICAL EXAM MUST BE COMPLETED ON ADMISSION The History and Physical (completed in the past 30 days) has been reviewed and the patient has been examined. The contents accurately reflect the patient's condition with the following additions or revisions since the HANDP was completed. Examination indicates no changes. This HANDP can be found in the scanned documents dated 02/08/23. SIGNATURE: Nik Leger DO PATIENT NAME: Vlad Siddiqi DATE: February 13, 2023 TIME: 7:28 AM Normal [facility] NURSING PROGon 02-13-2023 NURSING PROG HNO ID: [id number] Author: Lorenza Gomez RN Service: ? Author Type: Registered Nurse Type: Nursing Progress Note Filed: 02/13/2023 11:14 PM Note Text: Pt arrived from PACU via bed. Pt alert AND oriented x 3. Oriented to room AND call light. Instructed on CANDDB, IS use AND ankle pumps. Pt states understanding. Call light w/I reach AND side rails up x 2 Normal [facility] OPERATIVE NOon 02-13-2023 OPERATIVE NO HNO ID: [id number] Author: Nik Leger DO Service: Orthopaedic Surgery Author Type: Physician Type: Operative Report Filed: 02/14/2023 11:23 AM Note Text: [facility] - Operative Notes VLAD SIDDIQI : 1960 AGE: 63 SEX: M CSN: [id number] [facility]: LOCATION: [address] [address] ATTENDING PHYSICIAN: DATE OF SERVICE: 02/13/2023 PREOPERATIVE DIAGNOSIS: 1. A degenerative spondylolisthesis, L4-5. 2. Spinal stenosis with symptoms of neurogenic claudication, L4-5. POSTOPERATIVE DIAGNOSIS: 1. A degenerative spondylolisthesis, L4-5. 2. Spinal stenosis with symptoms of neurogenic claudication, L4-5. OPERATION: 1. Posterolateral fusion with instrumentation, L4-5. 2. Partial laminectomy of L4 and L5. 3. Medial facetectomies of L4 and L5. 4. Foraminotomies decompressing the L4 and the L5 nerve root bilaterally. 5. Bone marrow aspirate from the left ileum. 6. Fibergraft matrix, Vivigen, local bone graft, DBM, and cancellous bone chips placed in the posterolateral gutters for fusion purposes. SURGEON: Nik Leger DO ASSIST: SA Dannielle ANESTHESIA: General endotracheal. FLUIDS: Per Anesthesia. ESTIMATED BLOOD LOSS: 125 mL. COMPLICATIONS: There were no complications. No changes in neuromonitoring. DISPOSITION: Patient to PACU. Will be admitted to the PACU for postoperative care. HISTORY: Patient is a 63-year-old gentleman who presented to my office from [facility]. This is a gentleman who has seen Pain Management over in [place]. Had epidural steroid injections which gave him relief, but it was just very short term. He presented to my office for operative intervention. The risks, benefits, and alternative methods of treatment were discussed with how. Now, this patient really was requesting to go to our surgical ASC to have his procedure done but, because of anesthesia and medical reasons, they did not approve it and so the patient was shifted down to [facility]. The risks, benefits and alternative methods of treatment were discussed with this patient at length. He understood, signed the informed consent, and wanted to proceed. PROCEDURE: Patient was met in the preoperative holding area by myself and the anesthesia team, neuromonitoring. Patient had the consent signed. HANDP was updated. He was brought back by the anesthesia team and underwent successful endotracheal anesthesia. Patient was taken from a supine lie to a prone position on the Henri bed. He was positioned accordingly and was prepped and draped in the normal sterile fashion, leaving the lower lumbar spine free for operative intervention. At this time, a formal timeout was performed including that the proper patient and procedure being contemplated. Once this was deemed correct, I placed a spinal needle in the right paraspinal musculature and I took a lateral fluoroscopic image to confirm appropriate starting position for my skin incision. I made a midline incision using a 10-blade. Used Bovie electrocautery to dissect down to the subcutaneous tissue and then I performed a subperiosteal dissection down L4 and L5. I marked my interval at 4-5 and took a lateral fluoroscopic image, and in confirmed with Dr. Moses from Radiology per [facility] protocol. I then extended my exposure out to the transverse process of L4 and L5. I then did this bilaterally, forming my posterolateral gutters. I packed my posterolateral gutters with rolled Ray-Yary and then, through a separate fascial incision, I took my aspirator mallet into the PSIS off the left side and aspirated approximately 20 mL of bone marrow aspirate. Once this was completed, my attention then was then taken back to my primary incision after my aspirator was removed. I injected my PAVAN, half of my solution into the lumbar musculature prior to placing my self-retaining retractors. I then placed my Super Slide self-retaining retractor and expanded. I then spent the time using Bartholomew elevators, curettes, pituitaries, Bovie electrocautery to remove all the soft tissue from the posterior elements from L4 to L5. Now, once this was completed, I hooked up my navigation to my spinous process of L5 and then I brought in my O-arm after I sterilely draped out the table and spun for navigation. I used navigation to place my pedicle screws. Using a navigated AMA bur I drilled initial hole. I used a Lenke pedicle finder. I used a ball-tip probe to confirm all 4 ruiz were intact. I measured my length, my pedicle screw off the anterior wall. My diameter of my pedicle screw was chosen off my preoperative CT scan. I tapped, using my ball-tip probe again to confirm the ruiz were intact and placed my cortical fix Expedium screw from [employer]. Now we placed 8 mm diameters at each level and on the left at L4 was a 55 mm length, the right was a 50 mm length, (more content not included)... [facility] THERAPY NTon 02-13-2023 THERAPY NT HNO ID: [id number] Author: Ela Hope, PT, DPT Service: Physical Therapy Author Type: Physical Therapist Type: Therapy (PT/OT/Speech/Resp) Filed: 02/13/2023 2:55 PM Note Text: Physical Therapy Evaluation SERVICE DATE: 02/13/2023 SERVICE TIME: 1416 to 1448 ROOM: [address] [address] Recommended Discharge Disposition: Home Recommended Discharge Equipment: Wheeled Walker PT 6 Clicks Score: 18 Precautions/Activity Restrictions: Spine, Lines/Tubes/Drains Precaution/Activity Restriction Comments: spinal precautions, log roll, brace when OOB, hemovac Current Hospital Course: Spinal stenosis with symptoms of neurogenic claudication L4-5, degenerative spinal listhesis L4-5 Reason for Hospital Admission: s/p L4-[address] Leger on 02/13/23 Relevant Past Medical History: DM, HTN, HLP, carpal tunnel, Response to Therapy Interventions: Good Participation in Activities Assessment Comments: Pt tolerated PT eval well. Pt educated on spinal precautions, log roll, brace wearing schedule, PT POC, and safety with functional mobility. Pt is limited per pain. Implement acute care PT, recommend home upon discharge Continued Skilled Needs Due to: Functional Mobility/Skill Impairments Physical Therapy Problem List: Functional Mobility Impairment Treatment Interventions: Education Plan for Next Visit: Gait Training Home Environment Patient Lives With: Spouse Assistance Available: 24-Hour Entry To Home: Stairs, Without Rail (THree leevl) Number Of Stairs Into Home: 1 Number Of Stairs To Bed/Bath: 13 Stairs to Bed/Bath with: Unilateral Rail Tub/Shower Type: Full bath on first- WIS and tub shower combo. 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 Indep with ADL with difficulty and extra time. Shares cooking and cleaning with . Drive. Work FT. CURRENT FUNCTIONAL STATUS: Most recent performance Current Functional Mobility Assist Level Additional Information Rolling Minimal Assistance, Additional Information log roll right Supine to Sit Minimal Assistance, Additional Information sidelying to sit Sit to Supine Scooting Sit to Stand Contact Guard Assistance, Additional Information Slow to rise, cues for hand placement, pain spasms intermittently hitting pt Stand to Sit Contact Guard Assistance Bed to Chair Toilet/Commode Gait Contact Guard Assistance, Additional Information Gait Device: Wheeled Walker Gait Distance (feet): 120 feet x 2 Reciprocal gait pattern, smooth magda, no LOB, no buckling Stairs Curb Step Car Transfer Blank marie indicate activity not attempted JH-HLM: 7: Walk 25 feet or more Learning/Educational Needs: Discharge Plan Goals for Plan of Care: Patient/Caregiver Goals: Go Home Goals: Patient will demonstrate progress to optimize functional mobility, maximize activity tolerance and endurance to maximize function upon discharge. Able to Perform HEP with: Independent Transfer Supine to/from Sit with: Supervision Transfer Sit to/from Stand with: Supervision Ambulate with: Supervision Distance: 50 Device: Wheeled Walker Ambulate Up and Down Steps with: Stand By Assistance Number of Steps: 1 Progress Toward Goals: Progressing as expected Rehab Potential: Excellent Patient will be discontinued from Physical Therapy when no further skilled needs are identified in this setting. PLAN: PT Frequency: Once daily Plan of Care developed with: Patient TREATMENT INTERVENTIONS: Therapy Diagnosis: Reduced mobility-other Interventions Provided: Evaluation, Therapeutic Activity (65473) $ Evaluation-Low (67182) Billed Units: 1 unit Therapeutic Activity (90944) Treatment Minutes: 17 $ Therapeutic Activity (46779) Billed Units: 1 unit Training AND Education Provided in: Advanced Balance Activities The Following Therapeutic Skills Were Used: Cues for Sequencing/Proper Technique for Activity Timed Code Treatment (minutes): 17 Skilled Treatment Time (minutes): 32 Please see discipline specific clinical documentation flowsheet for complete details for this therapy evaluation/treatment. SIGNATURE: Ela Hope, PT, DPT PATIENT NAME: Vlad Siddiqi DATE: February 13, 2023 TIME: 2:55 PM [facility] XR ABDOMEN 1V SUPINEon 02-13 XR ABDOMEN 1V SUPINE * * *Final Report* * * DATE OF EXAM: Feb 13 2023 6:39AM RHX 5289 - XR ABDOMEN 1V SUPINE / PROCEDURE REASON: Kidney failure, chronic * * * * Physician Interpretation * * * * Exam: Supine KUB and 3 views INDICATION: Kidney failure, chronic FINDINGS: No calcifications over the renal silhouettes or expected course of the ureters, or the expected location of the vesicoureteral junctions. Rounded calcifications in the pelvis are most suggestive of phleboliths. Scattered gas in small and large bowel without pathologic distention. No mass effect. Scattered stool volume. Degenerative changes of the spine and hips. Lung bases appear clear. IMPRESSION: 1. No calcifications over the renal silhouettes, expected course of the ureters or vesicoureteral junctions. 2. Calcifications in the pelvis most suggestive of phleboliths. However, if symptoms persist, consider with limited ultrasound to assess for ureteral jets. Air Motor Repairer: [facility] Transcribe Date/Time: Feb 13 2023 6:40A Dictated by : JEFFREY MELTON MD This examination was interpreted and the report reviewed and electronically signed by: JEFFREY MELTON MD on Feb 13 2023 6:44AM EST [id number] [facility] XR FLUOROSCOPYon 02-13-2023 XR FLUOROSCOPY * * *Final Report* * * DATE OF EXAM: Feb 13 2023 10:29AM RHX 5513 - XR FLUOROSCOPY / PROCEDURE REASON: SPINAL STENOSIS * * * * Physician Interpretation * * * * XR FLUOROSCOPY Ordering Physician: NIK LEGER 02/13/2023 10:29 AM LUMBAR SPINE FLUOROSCOPY Clinical Statement: Spinal stenosis FINDINGS: 15 seconds fluoroscopy time was utilized by Dr. Leger. 2 C-arm images of the lumbar spine were obtained with additional tomographic images. IMPRESSION: 15 seconds fluoroscopy time utilized by Dr. Leger. Air Motor Repairer: [facility] Transcribe Date/Time: Feb 13 2023 11:27A Dictated by : NIKUNJ MOSES MD This examination was interpreted and the report reviewed and electronically signed by: NIKUNJ MOSES MD on Feb 13 2023 11:31AM EST [id number] Normal [facility] XR LUMBAR 2V AP/LATon 2022 XR LUMBAR 2V AP/LAT * * *Final Report* * * DATE OF EXAM: Feb 13 2023 8:35AM RHX 5229 - XR LUMBAR 2V AP/LAT / PROCEDURE REASON: Spinal stenosis, lumbar * * * * Physician Interpretation * * * * XR LUMBAR 2V AP/LAT Ordering Physician: NIK LEGER 02/13/2023 8:35 AM LUMBAR SPINE Clinical Statement: Spinal stenosis FINDINGS: 2 C-arm images of the lumbar spine were obtained. The images reveal a surgical marking device at the L5 level posteriorly. The results were discussed with the patient's surgeon. IMPRESSION: The surgical marking device is positioned at L5. Air Motor Repairer: [facility] Transcribe Date/Time: Feb 13 2023 8:41A Dictated by : NIKUNJ MOSES MD This examination was interpreted and the report reviewed and electronically signed by: NIKUNJ MOSES MD on Feb 13 2023 8:42AM EST [id number] Normal [facility] Bacteria Ur Culton 3 Bacteria identified Cx Nom (U) CULTURE, URINE: <10,000 CFU/ml Normal Urogenital Debbie Normal [facility] Comment on above: Performed By: #### 6 30-4 ####[facility] LABORATORYCLIA [id number] [place] [id number] [place] Basic metabolic 2000 panelon 01-31-2023 Anion gap [Moles/Vol] 5 mmol/L Normal 5-16 [facility] Comment on above: Order Comment: Speci men Type: BLOOD SPECIMEN [facility]: [facility] Address: [address] [place] [address] Performed By: #### 2 4321-2 #### [facility] CLIA [id number] [address] [place] [address] [place] Calcium [Mass/Vol] 9.3 mg/dL Normal 8.5-10.5 [facility] Comment on above: Order Comment: Speci men Type: BLOOD SPECIMEN Order[facility] Facility: [facility] Address: [address] [place] [address] Performed By: #### 2 4321-2 #### [facility] CLIA [id number] [address] [place] [address] [place] Chloride [Moles/Vol] 105 mmol/L Normal 98-107 [facility] Comment on above: Order Comment: Speci men Type: BLOOD SPECIMEN [facility] Facility: [facility] Address: [address] [place] [address] Performed By: #### 2 4321-2 #### [facility] CLIA [id number] [address] [place] [address] [place] CO2 [Moles/Vol] 28 mmol/L Normal 21-32 [facility] Comment on above: Order Comment: Speci men Type: BLOOD SPECIMEN [facility] Facility: [facility] Address: [address] [place] [address] Performed By: #### 2 4321-2 #### [facility] CLIA [id number] [address] [place] [address] [place] Creatinine [Mass/Vol] 1.32 mg/dL Normal 0.50-1.40 [facility] Comment on above: Order Comment: Speci men Type: BLOOD SPECIMEN Order[facility] Facility: [facility] Address: [address] [place] [address] Result Comment: Lali ents receiving either N-Acetylcysteine (NAC) or Metamizole prior to venipuncture, may have falsely depressed results. Performed By: #### 2 4321-2 #### [facility] CLIA [id number] [address] [place] [address] [place] ESTIMATED GLOMERULAR FILTRATION RATE 61 mL/min/1.73m??? Normal >=60 [facility] Comment on above: Order Comment: Soraida montoya Type: BLOOD SPECIMEN Order[facility] Facility: [facility] Address: [address] [place] [address] Result Comment: Germania mated Glomerular Filtration Rate (eGFR) is calculated using the 2020 CKD-EPI creatinine equation. This equation utilizes serum creatinine, sex, and age as parameters. The creatinine assay has traceable calibration to isotope dilution-mass spectrometry. Refer to KDIGO guidelines for clinical interpretation. In patients with unstable renal function, e.g. those with acute kidney injury, the eGFR may not accurately reflect actual GFR. Performed By: #### 2 4321-2 #### [facility] CLIA [id number] [address] [place] [address] [place] Glucose [Mass/Vol] 188 mg/dL High 70-100 [facility] Comment on above: Order Comment: Soraida montoya Type: BLOOD SPECIMEN Ordering Facility: [facility] Address: [address] [place] [address] Result Comment: The [place] Diabetes Association (ADA) provides guidance for cutoff values for fasting glucose and random glucose. The ADA defines fasting as no caloric intake for at least 8 hours. Fasting plasma glucose results between 100 to 125 mg/dL indicate increased risk for diabetes (prediabetes). Fasting plasma glucose results greater than or equal to 126 mg/dL meet the criteria for diagnosis of diabetes. In the absence of unequivocal hyperglycemia, results should be confirmed by repeat testing. In a patient with classic symptoms of hyperglycemia or hyperglycemic crisis, random plasma glucose results greater than or equal to 200 mg/dL meet the criteria for diagnosis of diabetes. Reference: Standards of Medical Care in Diabetes 2016, [place] Diabetes Association. Diabetes Care. 2016.39(Suppl 1). Results may be falsely elevated after the administration of Sulfapyridine. Results may be falsely depressed after the administration of Sulfasalazine. Performed By: #### 2 4321-2 #### [facility] CLIA [id number] [address] [place] [address] [place] Potassium [Moles/Vol] 4.3 mmol/L Normal 3.5-5.1 [facility] Comment on above: Order Comment: Speci men Type: BLOOD SPECIMEN Ordering Facility: [facility] Address: [address] [address] Performed By: #### 2 4321-2 #### [facility] CLIA [id number] [address] [place] [address] [place] Sodium [Moles/Vol] 138 mmol/L Normal 136-145 [facility] Comment on above: Order Comment: Speci men Type: BLOOD SPECIMEN Ordering Facility: [facility] Address: [address] [address] Performed By: #### 2 4321-2 #### [facility] CLIA [id number] [address] [place] [address] [place] Urea nitrogen [Mass/Vol] 29 mg/dL High 7-26 [facility] Comment on above: Order Comment: Speci men Type: BLOOD SPECIMEN Ordering Facility: [facility] Address: [address] [address] Performed By: #### 2 4321-2 #### [facility] CLIA [id number] [address] [place] [address] [place] CBC W Auto Differential pane l (Bld)on 01-31-2023 Basophils (Bld) [#/Vol] 0.04 10*3/uL Normal <0.11 [facility] Comment on above: Order Comment: Speci men Type: BLOOD SPECIMEN Ordering Facility: [facility] Address: [address] [address] Performed By: #### 5 7021-8, 78811-6 #### [facility] CLIA [id number] [address] [place] [address] [place] Basophils/100 WBC (Bld) 0.8 % Normal [facility] Comment on above: Order Comment: Speci men Type: BLOOD SPECIMEN Ordering Facility: [facility] Address: [address] [address] Performed By: #### 5 7021-8, 84769-3 #### [facility] CLIA [id number] [address] [place] [address] [place] Differential cell count method Nom (Bld) Auto Normal [facility] Comment on above: Order Comment: Speci men Type: BLOOD SPECIMEN Ordering Facility: [facility] Address: [address] [place] [address] Performed By: #### 5 7021-8, 43799-2 #### [facility] CLIA [id number] [address] [place] [address] [place] Eosinophils (Bld) [#/Vol] 0.15 10*3/uL Normal <0.46 [facility] Comment on above: Order Comment: Speci men Type: BLOOD SPECIMEN Ordering Facility: [facility] Address: [address] [place] [address] Performed By: #### 5 7021-8, 44050-4 #### [facility] CLIA [id number] [address] [place] [address] [place] Eosinophils/100 WBC (Bld) 3.0 % Normal [facility] Comment on above: Order Comment: Speci men Type: BLOOD SPECIMEN Ordering Facility: [facility] Address: [address] [place] [address] Performed By: #### 5 7021-8, 42805-4 #### [facility] CLIA [id number] [address] [place] [address] [place] Erythrocyte distribution width (RBC) [Ratio] 12.2 % Normal 11.5-15.0 [facility] Comment on above: Order Comment: Speci men Type: BLOOD SPECIMEN Ordering Facility: [facility] Address: [address] [place] [address] Performed By: #### 5 7021-8, 95214-2 #### [facility] CLIA [id number] [address] [place] [address] [place] Hematocrit (Bld) [Volume fraction] 43.6 % Normal 39.0-51.0 [facility] Comment on above: Order Comment: Speci men Type: BLOOD SPECIMEN Ordering Facility: [facility] Address: [address] [address] Performed By: #### 5 7021-8, 17906-4 #### [facility] CLIA [id number] [address] [place] [address] [place] Hemoglobin (Bld) [Mass/Vol] 14.9 g/dL Normal 13.0-17.0 [facility] Comment on above: Order Comment: Speci men Type: BLOOD SPECIMEN Ordering Facility: [facility] Address: [address] [address] Performed By: #### 5 7021-8, 20293-1 #### [facility] CLIA [id number] [address] [place] [address] [place] Immature granulocytes (Bld) [#/Vol] 10*3/uL Normal <0.10 [facility] Comment on above: Order Comment: Speci men Type: BLOOD SPECIMEN Ordering Facility: [facility] Address: [address] [address] Performed By: #### 5 7021-8, 29751-4 #### [facility] CLIA [id number] [address] [place] [address] [place] Immature granulocytes/100 WBC (Bld) 0.2 % Normal [facility] Comment on above: Order Comment: Speci men Type: BLOOD SPECIMEN Ordering Facility: [facility] Address: [address] Performed By: #### 5 7021-8, 06280-6 #### [facility] CLIA [id number] [address] [place] [address] [place] Lymphocytes (Bld) [#/Vol] 1.35 10*3/uL Normal 1.00-4.00 [facility] Comment on above: Order Comment: Speci men Type: BLOOD SPECIMEN Ordering Facility: [facility] Address: [address] Performed By: #### 5 7021-8, 85082-5 #### [facility] CLIA [id number] [address] [place] [address] [place] Lymphocytes/100 WBC (Bld) 27.0 % Normal [facility] Comment on above: Order Comment: Speci men Type: BLOOD SPECIMEN Ordering Facility: [facility] Address: [address] [place] [address] Performed By: #### 5 7021-8, 55391-4 #### [facility] CLIA [id number] [address] [place] [address] [place] MCH (RBC) [Entitic mass] 31.2 pg Normal 26.0-34.0 [facility] Comment on above: Order Comment: Speci men Type: BLOOD SPECIMEN Ordering Facility: [facility] Address: [address] [place] [address] Performed By: #### 5 7021-8, 52641-0 #### [facility] CLIA [id number] [address] [place] [address] [place] MCHC (RBC) [Mass/Vol] 34.2 g/dL Normal 30.5-36.0 [facility] Comment on above: Order Comment: Speci men Type: BLOOD SPECIMEN Ordering Facility: [facility] Address: [address] [place] [address] Performed By: #### 5 7021-8, 43951-6 #### [facility] CLIA [id number] [address] [place] [address] [place] MCV (RBC) [Entitic vol] 91.4 fL Normal 80.0-100.0 M [facility] Comment on above: Order Comment: Speci men Type: BLOOD SPECIMEN Ordering Facility: [facility] Address: [address] [place] [address] Performed By: #### 5 7021-8, 55958-1 #### [facility] CLIA [id number] [address] [place] [address] [place] Monocytes (Bld) [#/Vol] 0.42 10*3/uL Normal <0.87 [facility] Comment on above: Order Comment: Speci men Type: BLOOD SPECIMEN Ordering Facility: [facility] Address: [address] [address] Performed By: #### 5 7021-8, 63471-9 #### [facility] CLIA [id number] [address] [place] [address] [place] Monocytes/100 WBC (Bld) 8.4 % Normal [facility] Comment on above: Order Comment: Speci men Type: BLOOD SPECIMEN Ordering Facility: [facility] Address: [address] [address] Performed By: #### 5 7021-8, 70453-3 #### [facility] CLIA [id number] [address] [place] [address] [place] Neutrophils (Bld) [#/Vol] 3.03 10*3/uL Normal 1.45-7.50 [facility] Comment on above: Order Comment: Speci men Type: BLOOD SPECIMEN Ordering Facility: [facility] Address: [address] [address] Performed By: #### 5 7021-8, 57684-4 #### [facility] CLIA [id number] [address] [place] [address] [place] Neutrophils/100 WBC (Bld) 60.6 % Normal [facility] Comment on above: Order Comment: Speci men Type: BLOOD SPECIMEN Ordering Facility: [facility] Address: [address] Performed By: #### 5 7021-8, 35266-8 #### [facility] CLIA [id number] [address] [place] [address] [place] Nucleated RBC (Bld) [#/Vol] 10*3/uL Normal <0.01 [facility] Comment on above: Order Comment: Speci men Type: BLOOD SPECIMEN Ordering Facility: [facility] Address: [address] Performed By: #### 5 7021-8, 40646-5 #### [facility] CLIA [id number] [address] [place] [address] [place] Nucleated RBC/100 WBC (Bld) [Ratio] 0.0 /100 WBC Normal [facility] Comment on above: Order Comment: Speci men Type: BLOOD SPECIMEN Ordering Facility: [facility] Address: [address] Performed By: #### 5 7021-8, 86458-5 #### [facility] CLIA [id number] [address] [place] [address] [place] Platelet mean volume (Bld) [Entitic vol] 8.7 fL Low 9.0-12.7 [facility] Comment on above: Order Comment: Speci men Type: BLOOD SPECIMEN Ordering Facility: [facility] Address: [address] Performed By: #### 5 7021-8, 05810-7 #### [facility] CLIA [id number] [address] [place] [address] [place] Platelets (Bld) [#/Vol] 210 10*3/uL Normal 150-400 [facility] Comment on above: Order Comment: Speci men Type: BLOOD SPECIMEN Ordering Facility: [facility] Address: [address] Performed By: #### 5 7021-8, 54659-9 #### [facility] CLIA [id number] [address] [place] [address] [place] RBC (Bld) [#/Vol] 4.77 10*6/uL Normal 4.20-6.00 [facility] Comment on above: Order Comment: Speci men Type: BLOOD SPECIMEN Ordering Facility: [facility] Address: [address] [address] Performed By: #### 5 7021-8, 70353-7 #### [facility] CLIA [id number] [address] [place] [address] [place] WBC (Bld) [#/Vol] 5.00 10*3/uL Normal 3.70-11.00 [facility] Comment on above: Order Comment: Speci men Type: BLOOD SPECIMEN Ordering Facility: [facility] Address: [facility] [place] [address] Performed By: #### 5 7021-8, 61669-9 #### [facility] CLIA [id number] [facility] [id number] [place] CNPNon 01-31-2023 CNPN Telephone (PRANMY) VLAD SIDDIQI ([id number]) 1960 M Date Time Provider Department 01/31/23 MARIE MISHRA During your visit today, we recorded the following information about you: Allergies As of Date: 01/31/2023 Noted Allergy Reaction ADHESIVE TAPE (ROSINS) 12/24/2013 2 - Rash 9 - Itching GOLDENROD 04/05/2012 14 - Other: See Comments Comments: Sinus issues GRASS POLLEN 04/05/2012 14 - Other: See Comments Comments: Sinus issues PENICILLINS 05/06/2005 2 - Rash SULFA (SULFONAMIDE ANTIBIOTICS) 05/06/2005 2 - Rash THIAZIDES 03/15/2015 2 - Rash TREES 04/05/2012 14 - Other: See Comments Comments: Sinus problems BYETTA (EXENATIDE) 12/05/2005 8 - GI Upset Comments: 5 mcg dose caused persistent nausea DOXYCYCLINE 09/02/2005 2 - Rash Date Reviewed: 01/31/2023 Reviewed by: Marie Mishra RN - Fully Assessed Reason for Visit: clearances reviewed [Other] Prescriptions as of 02/02/2023 - insulin lispro (HUMALOG PEN SUBCUTANEOUS) Inject subcutaneously three times daily. 65 units with breakfast, 30 units with lunch, 45 units with supper - oxyCODONE-acetaminophen (PERCOCET) 5325 mg per tablet Take 1 tablet by mouth twice daily as needed (pain). 5-325mg - isuhvzbyqub-nnzakysjl-g ilanter (TRELEGY ELLIPTA) 100-62.5-25 mcg inhalation powder Inhale 1 Puff as instructed every evening. - omeprazole (PRILOSEC) 20 mg capsule Take 20 mg by mouth twice daily. - cholecalciferol (VITAMIN D3) 5,000 unit tab Take 5,000 Units by mouth once daily. - pregabalin (LYRICA) 100 mg capsule Take 100 mg by mouth three times daily. - loratadine (CLARITIN) 10 mg tablet Take 10 mg by mouth every morning. - Tadalafil (CIALIS) 10 mg tablet Take 10 mg by mouth as needed. - ubidecarenone Q-10 (COENZYME Q-10) 10 mg cap Take 100 mg by mouth once daily. - albuterol HFA (PROVENTIL HFA, VENTOLIN HFA) 90 mcg/actuation inhaler Inhale 1 Puff as instructed as needed. - insulin aspart (NOVOLOG FLEXPEN) 100 unit/mL inpn Inject 20 units sc at breakfast, 25 units at lunch, 30 units at supper. - Insulin [place], Disposable, (PEN NEEDLES) 31 gauge x 1/4 ndle For insulin injection 3x daily. - [place]-3 Fatty Acids 500 mg cap Take 1,000 mg by mouth twice daily. - lisinopril (ZESTRIL, PRINIVIL) 20 mg tablet Take 20 mg by mouth every morning. - atorvastatin (LIPITOR) 20 mg tablet Take 20 mg by mouth daily at bedtime. - blood sugar diagnostic Misc test strip before meals and at bedtime. accu check test strips Use as instructed 3-4 times daily. - COMPOUNDED PRESCRIPTION BLOOD PRESSURE CUFF FOR HOME USE. DX: LABILE BLOOD PRESSURE - aspirin, enteric coated (ASPIRIN, ENTERIC COATED) 81 mg EC tablet Take 81 mg by mouth once daily. DO NOT crush., to hold [address] Leger, to check with Dr Navarro - multivitamin ORAL tablet Take 1 tablet by mouth once daily. Last dose over 2 weeks prior to surgery Problem List As Of Date 01/31/2023 Noted Resolved Hypertension [I10] Hyperlipidemia [E78.5] Generalized osteoarthrosis, unspecified site [M* Type 2 diabetes mellitus (HCC) [E11.9] 09/24/1999 Impotence of organic origin [N52.9] 08/26/2005 Diabetic neuropathy [E11.40] Cervical radiculopathy [M54.12] 05/08/2013 Morbid obesity (HCC) [E66.01] 03/15/2015 Insulin long-term use (HCC) [Z79.4] 09/15/2015 Family history of colon cancer [Z80.0] 01/15/2023 Personal history of colonic polyps [Z86.010] 01/15/2023 Encounter Status:Closed by MARIE MISHRA on 02/02/23 [facility] HbA1c (Bld)on 01-31-2023 Average glucose Estimated from glycated hemoglobin (Bld) [Mass/Vol] 143 mg/dL [facility] Comment on above: Order Comment: Soraida montoya Type: BLOOD SPECIMEN Ordering Facility: [facility] Address: [address] [place], [place] [address] Result Comment: eAG: (Estimated average glucose) is a calculated value from HgbA1c and is sales representative livestock of the average blood glucose level in the last 2-3 month period. Performed By: #### 5 7021-8, 05224-5 #### [facility] CLIA [id number] [address] [place] [address] [place] HbA1c (Bld) [Mass fraction] 6.6 % High 4.3-6.0 [facility] Comment on above: Order Comment: Soraida montoya Type: BLOOD SPECIMEN Ordering Facility: [facility] Address: [address] [place] [address] Result Comment: [place] Diabetes Association guidelines indicate that patients with HgbA1c in the range 5.7-6.4% are at increased risk for development of diabetes, and intervention by lifestyle modification may be beneficial. HgbA1c greater or equal to 6.5% is considered diagnostic of diabetes. Performed By: #### 5 7021-8, 58906-8 #### [facility] CLIA [id number] [address] [place] [address] [place] NT-proBNP SerPl-mCncon 01-31 Natriuretic peptide.B prohormone N-Terminal [Mass/Vol] <15 Normal <125 [facility] Comment on above: Order Comment: Soraida montoya Type: BLOOD SPECIMEN Ordering Facility: [facility] Address: [address] [place] [address] Result Comment: NT-p roBNP results of less than 300 pg/mL likely rules out acute congestive heart failure with 99% predictive value. NOTE: These cutoff points are suggested for ACUTE CHF DIAGNOSIS only Less than 50 years Greater than 450 pg/mL 50 - 75 years Greater than 900 pg/mL Greater than 75 years Greater than 1800 pg/mL NOTE NEW NORMAL RANGE Performed By: #### 3 3762-6 #### [facility] CLIA [id number] [address] [place] [address] [place] STAPH AUREUS PCRon S. aureus and MRSA panel TANMAY+probe (Nose) Abnormal Negative [facility] Comment on above: Order Comment: Soraida montoya Type: SWAB OF INTERNAL NOSEOrdering Facility: [facility] Address: [address] [place] [address] Result Comment: Posi tive for Staphylococcus aureus by PCR. Negative for MRSA by PCR Performed By: #### S APCR ####[facility] [id number] [address] [place] TYPE AND SCREEN,30 DAYon ABO O Normal [facility] Comment on above: Order Comment: Specalberto montoya Type: BLOOD SPECIMEN Ordering Facility: [facility] Address: [address] [address] Performed By: #### T SCR30 #### [facility] CLIA [id number] [address] [place] [address] [place] HISTORICAL AB SCR STATUS Negative Normal [facility] Comment on above: Order Comment: Soraida montoya Type: BLOOD SPECIMEN Ordering Facility: [facility] Address: [address] [place] [address] Performed By: #### T SCR30 #### [facility] CLIA [id number] [facility] [place] [address] [place] Rh Nom (Bld) Positive [facility] Comment on above: Order Comment: Speci men Type: BLOOD SPECIMEN Ordering Facility: [facility] Address: [facility] [place] [address] Performed By: #### T SCR30 #### [facility] CLIA [id number] [facility] [address] OF [place] CNCOon 01-30-2023 CNCO Letter Text [facility] CNPNon 01-30-2023 CNPN Telephone (PRANMY) VLAD SIDDIQI ([id number]) 1960 M Date Time Provider Department 01/30/23 RADHA SHAFFER During your visit today, we recorded the following information about you: Allergies As of Date: 01/30/2023 Noted Allergy Reaction ADHESIVE TAPE (ROSINS) 12/24/2013 2 - Rash 9 - Itching BYETTA (EXENATIDE) 12/05/2005 Comments: 5 mcg dose caused persistent nausea GOLDENROD 04/05/2012 14 - Other: See Comments GRASS POLLEN 04/05/2012 14 - Other: See Comments PENICILLINS 05/06/2005 2 - Rash SULFA (SULFONAMIDE ANTIBIOTICS) 05/06/2005 2 - Rash THIAZIDES 03/15/2015 2 - Rash TREES 04/05/2012 14 - Other: See Comments DOXYCYCLINE 09/02/2005 2 - Rash Date Reviewed: 01/30/2023 Reviewed by: Radha Shaffer, RN - Fully Assessed Reason for Visit: Returning Patient's Call [408] Cmt: PACC hx call Prescriptions as of 01/30/2023 - insulin lispro (HUMALOG PEN SUBCUTANEOUS) Inject subcutaneously three times daily. 65 units with breakfast, 30 units with lunch, 45 units with supper - oxyCODONE-acetaminophen (PERCOCET) 5325 mg per tablet Take 1 tablet by mouth twice daily as needed. - lodjxrparnx-xqzryjtog-w ilanter (TRELEGY ELLIPTA) 100-62.5-25 mcg inhalation powder Inhale 1 Puff as instructed every evening. - omeprazole (PRILOSEC) 20 mg capsule Take 20 mg by mouth as needed (acid reflux). - cholecalciferol (VITAMIN D3) 5,000 unit tab Take 5,000 Units by mouth once daily. - pregabalin (LYRICA) 100 mg capsule Take 100 mg by mouth three times daily. - loratadine (CLARITIN) 10 mg tablet Take 10 mg by mouth every morning. - Tadalafil (CIALIS) 10 mg tablet Take 10 mg by mouth as needed. - ubidecarenone Q-10 (COENZYME Q-10) 10 mg cap Take 100 mg by mouth once daily. - albuterol HFA (PROVENTIL HFA, VENTOLIN HFA) 90 mcg/actuation inhaler Inhale 1 Puff as instructed as needed. - insulin aspart (NOVOLOG FLEXPEN) 100 unit/mL inpn Inject 20 units sc at breakfast, 25 units at lunch, 30 units at supper. - Insulin [place], Disposable, (PEN NEEDLES) 31 gauge x 1/4 ndle For insulin injection 3x daily. - [place]-3 Fatty Acids 500 mg cap Take 1,000 mg by mouth twice daily. - lisinopril (ZESTRIL, PRINIVIL) 20 mg tablet Take 20 mg by mouth every morning. - atorvastatin (LIPITOR) 20 mg tablet Take 20 mg by mouth daily at bedtime. - blood sugar diagnostic Misc test strip before meals and at bedtime. accu check test strips Use as instructed 3-4 times daily. - COMPOUNDED PRESCRIPTION BLOOD PRESSURE CUFF FOR HOME USE. DX: LABILE BLOOD PRESSURE - aspirin, enteric coated (ASPIRIN, ENTERIC COATED) 81 mg EC tablet Take 81 mg by mouth once daily. DO NOT crush., to hold [address] Leger, to check with Dr Navarro - multivitamin ORAL tablet Take one(1) tablet daily. Problem List As Of Date 01/30/2023 Noted Resolved Hypertension [I10] Hyperlipidemia [E78.5] Generalized osteoarthrosis, unspecified site [M* Type 2 diabetes mellitus (HCC) [E11.9] 09/24/1999 Impotence of organic origin [N52.9] 08/26/2005 Diabetic neuropathy [E11.40] Cervical radiculopathy [M54.12] 05/08/2013 Morbid obesity (HCC) [E66.01] 03/15/2015 Insulin long-term use (HCC) [Z79.4] 09/15/2015 Family history of colon cancer [Z80.0] 01/15/2023 Personal history of colonic polyps [Z86.010] 01/15/2023 Encounter Status:Closed by RADHA SHAFFER on 01/30/23 [facility] Absolute lymphocyte countOrd ered By: Dr. Navarro on 01-18-2023 Lymphocytes Auto (Unsp spec) [#/Vol] 1.32 10*3/uL 0.83-4.51 [facility] Basophil percentageOrdered B y: Dr. Navarro on 01-18-2023 Basophil percentage 0 SEEN /hpf 0-5 [facility] Basophil percentage 2.6 mg/dL 2.5-4.9 [facility] Basophils/100 WBC (Bld) 1.1 % 0-1 [facility] Bilirubin [Mass/Vol] 0.50 mg/dL 0.20-1.00 [facility] Comment on above: For patients on eltr ombopag therapy, use of Dimension [place] TBIL is not recommended. Chloride [Moles/Vol] 109 mmol/L 98-107 [facility] Cholesterol [Mass/Vol] 129 mg/dL <200 [facility] Comment on above: <200 mg/dL Desirable 200-240 mg/dL Borderline >240 mg/dL High Risk Eosinophils/100 WBC (Bld) 1.8 % 0-5 [facility] Glucose [Mass/Vol] 142 mg/dL 74-106 [facility] Comment on above: Fasting Glucose resu lt greater than or equal to 126 mg/dL suggests DIABETES MELLITUS per A.D.A. criteria. Neutrophils (Bld) [#/Vol] 4.0 10*3/uL 2.0-7.7 [facility] Neutrophils/100 WBC (Bld) 65.2 % 47-70 [facility] Potassium [Moles/Vol] 3.6 mmol/L 3.5-5.1 [facility] Protein [Mass/Vol] 7.3 g/dL 6.4-8.2 [facility] Sodium [Moles/Vol] 140 mmol/L 136-145 [facility] Triglyceride [Mass/Vol] 160 mg/dL <199 [facility] Comment on above: The drugs N-Acetylcy steine and Metamizole may falsely depress this assay.Serum Triglycerides Reference Interval Normal <150 mg/dL Borderline high 150 - 199 mg/dL High 200 - 499 mg/dL Very High > or = 500 mg/dL WBC (Bld) [#/Vol] 6.1 10*3/uL 4.4-11.0 [facility] Bilirubin Test strip Ql (U)O rdered By: Dr. Navarro on 01-18-2023 Bilirubin Ql (U) Negative Negative [facility] Blood erythrocytes count (nu mber/volume)Ordered By: Dr. Navarro on 01-18-2023 RBC (Bld) [#/Vol] 4.89 10*6/uL 4.6-6.2 [facility] Blood hemoglobin measurement (mass/volume)Ordered By: Dr. Navarro on 01-18-2023 Hemoglobin (Bld) [Mass/Vol] 15.1 g/dL 13.0-16.5 [facility] Blood lymphocytes/100 leukoc ytesOrdered By: Dr. Navarro on 01-18-2023 Lymphocytes/100 WBC (Bld) 21.6 % 19-41 [facility] Blood monocytes/100 leukocyt esOrdered By: Dr. Navarro on 01-18-2023 Monocytes/100 WBC (Bld) 10.3 % 0-10 [facility] Blood platelet mean volumeOr dered By: Dr. Navarro on 01-18-2023 Platelet mean volume (Bld) [Entitic vol] 8.9 fL 6.2-12.0 [facility] Determination of erythrocyte mean corpuscular volume (MCV)Ordered By: Dr. Navarro on 01-18-2023 MCV (RBC) [Entitic vol] 92.6 fL 80-94 [facility] Hematocrit Auto (Bld) [Volum e fraction]Ordered By: Dr. Navarro on 01-18-2023 Hematocrit (Bld) [Volume fraction] 45.3 % 40-54 [facility] Ketones Test strip Ql (U)Ord ered By: Dr. Navarro on 01-18-2023 Ketones Ql (U) Negative Negative [facility] Laboratory - Chemistry and C hemistry - challengeOrdered By: Dr. Navarro on 01-18-2023 ALP [Catalytic activity/Vol] 57 U/L 45-117 [facility] ALT [Catalytic activity/Vol] 51 U/L 16-61 [facility] CO2 [Moles/Vol] 25.0 mmol/L 21.0-32.0 [facility] Free T4 [Mass/Vol] 0.97 ng/dL 0.76-1.46 [facility] Globulin (S) [Mass/Vol] 3.5 g/dL 2.2-4.2 [facility] Urea nitrogen/Creatinine [Mass ratio] 16.0 mg/mg 10-20 [facility] Laboratory - Hematology and Cell countsOrdered By: Dr. Navarro on 01-18-2023 Erythrocyte distribution width (RBC) [Entitic vol] 42.3 fL 35.1-43.9 [facility] Erythrocyte distribution width (RBC) [Ratio] 12.4 % 11.6-14.6 [facility] Immature granulocytes/100 WBC (Bld) 0.000 % 0.0-0.9 [facility] Comment on above: IG% - Immature Granu locytes (promyelocytes, myelocytes and metamyelocytes) > 1% indicates that a LEFT SHIFT is Present. MCH (RBC) [Entitic mass] 30.9 pg 27.0-32.0 [facility] Nucleated RBC/100 WBC (Bld) [Ratio] 0 % 0-5 [facility] MCHC Auto (RBC) [Mass/Vol]Or dered By: Dr. Navarro on 01-18-2023 MCHC (RBC) [Mass/Vol] 33.3 g/dL 32-36 [facility] Mucus LM Ql (Urine sed)Order ed By: Dr. Navarro on 01-18-2023 Mucus Ql (Urine sed) 0 SEEN /hpf [facility] Nitrite Test strip Ql (U)Ord ered By: Dr. Navarro on 01-18-2023 Nitrite Ql (U) Negative Negative [facility] No Panel InformationOrdered By: Dr. Navarro on 01-18-2023 Estimated GFR (MDRD) Amer 64 mL/min >60 [facility] Comment on above: GFR Calc Estimated GFR (MDRD) Non-Af Amer 53 mL/min >60 [facility] Comment on above: Non- GFR Calc Parathyroid Hormone (Intact) 28.1 pg/mL 18.4-80.1 [facility] Thyroglobulin Antibody < 1.0 IU/mL 0.0-0.9 [facility] Comment on above: Thyroglobulin Antibo dy measured by Ines [employer] Thyroglobulin Level 26.7 ng/mL 1.4-29.2 [facility] Comment on above: According to the [facility] [employer] of Clinical Biochemistry,the reference interval for Thyroglobulin (TG) should berelated to euthyroid patients and not for patients whounderwent thyroidectomy. TG reference intervals for thesepatients depend on the residual mass of the thyroid tissueleft after surgery. Establishing a post-operative baselineis recommended. The assay limit of quantitation is 0.1ng/mLThyroglobulin measured by Ines Julio [employer] Thyroid Stimulating Hormone (TSH) 1.63 uIU/mL 0.358-3.74 [facility] Urine Microalbumin/Creatinine Ratio 115.8 mg/g CRE <30 [facility] Vitamin D 25-Hydroxy 73.8 ng/mL [facility] Comment on above: Vitamin D 25(OH) Sta tus Range Deficiency <20 ng/mL (50nmol/L) Insufficiency 20 - 30 ng/mL (50 - 75 nmol/L) Sufficiency 30 - 100 ng/mL (75 - 250 nmol/L) Toxicity >100 ng/mL (>250 nmol/L) Platelets bldOrdered By: Dr. Navarro on 01-18-2023 Platelets (Bld) [#/Vol] 201 10*3/uL 150-450 [facility] Protein Test strip Ql (U)Ord ered By: Dr. Navarro on 01-18-2023 Protein Ql (U) 30 mg/dl Negative [facility] Serum or plasma albumin melanie urement (mass/volume)Ordered By: Dr. Navarro on 01-18-2023 Albumin [Mass/Vol] 3.8 g/dL 3.2-5.0 [facility] Serum or plasma albumin/glob ulin mass ratioOrdered By: Dr. Navarro on 01-18-2023 Albumin/Globulin [Mass ratio] 1.1 {ratio} 0.9-2.4 [facility] Serum or plasma calcium melanie urement (mass/volume)Ordered By: Dr. Navarro on 01-18-2023 Calcium [Mass/Vol] 9.2 mg/dL 8.5-10.1 [facility] Serum or plasma cholesterol in HDL measurement (mass/volume)Ordered By: Dr. Navarro on 01-18-2023 Cholesterol in HDL [Mass/Vol] 47 mg/dL >40 [facility] Comment on above: The drugs N-Acetylcy steine and Metamizole may falsely depress this assay. Reference Range HDL <40 mg/dL Low HDL Cholesterol HDL >or= 60 mg/dL High HDL Cholesterol Serum or plasma cholesterol in VLDL measurement (mass/volume)Ordered By: Dr. Navarro on 01-18-2023 Cholesterol in VLDL [Mass/Vol] 32 mg/dL 5-40 [facility] Serum or plasma creatinine m easurement (mass/volume)Ordered By: Dr. Navarro on 01-18-2023 Creatinine [Mass/Vol] 1.44 mg/dL 0.70-1.30 [facility] Comment on above: The validity of the calculated GFR & GFRAA in patients over 70 years has not been determined. Clinical correlation is essential. Serum or plasma low density lipoprotein (LDL) cholesterol measurement (mass/volume)Ordered By: Dr. Navarro on 01-18-2023 Cholesterol in LDL [Mass/Vol] 50 mg/dL 0-130 [facility] Serum or plasma thyroperoxid ase antibody assay (units/volume)Ordered By: Dr. Navarro on 01-18-2023 TPO Ab Qn 22 [IU]/mL 0-34 [facility] Comment on above: Performed at: [address] [id number] Director: Santana Doran PhD, Phone: [phone] Serum or plasma urea nitroge n measurement (mass/volume)Ordered By: Dr. Navarro on 01-18-2023 Urea nitrogen [Mass/Vol] 23 mg/dL 7-18 [facility] Squamous epithelial cells de tection in urine sediment by light microscopyOrdered By: Dr. Navarro on 01-18-2023 Epithelial cells.squamous LM Ql (Urine sed) 0 SEEN /hpf 0-5 [facility] Thin prep Papanicolaou smear with manual screeningOrdered By: Dr. Navarro on 01-18-2023 Thin prep Papanicolaou smear with manual screening 32 U/L 15-37 [facility] Thin prep Papanicolaou smear with manual screening 6 5-15 [facility] Thin prep Papanicolaou smear with manual screening 176.0 mg/L NO RANGE EST. [facility] Urine blood detectionOrdered By: Dr. Navarro on 01-18-2023 RBC Ql (U) Negative Negative [facility] RBC Ql (U) 0 SEEN /hpf 0-5 [facility] Urine clarityOrdered By: Dr. Navarro on 01-18-2023 Clarity (U) Clear Clear [facility] Urine color determinationOrd ered By: Dr. Navarro on 01-18-2023 Color (U) Yellow Yellow [facility] Urine creatinine measurement (mass/volume)Ordered By: Dr. Navarro on 01-18-2023 Creatinine (U) [Mass/Vol] 152.00 mg/dL NO RANGE EST. [facility] Urine glucose detectionOrder ed By: Dr. Navarro on 01-18-2023 Glucose Ql (U) 250 mg/dl Normal [facility] Urine leukocyte esterase det ection by dipstickOrdered By: Dr. Navarro on 01-18-2023 Leukocyte esterase Test strip Ql (U) Negative Negative [facility] Urine pHOrdered By: Dr. Faye swan on 01-18-2023 pH (U) 5.0 [pH] 5.0 - 8.0 [facility] Urine protein measurement (m ass/volume)Ordered By: Dr. Navarro on 01-18-2023 Protein (U) [Mass/Vol] 39.6 mg/dL 0.0-11.8 [facility] Urine protein/creatinine mas s ratioOrdered By: Dr. Navarro on 01-18-2023 Protein/Creatinine (U) [Mass ratio] 261 mg/g CRE 0-200 [facility] Urine sediment bacteria coun t by microscopy (number/high power field)Ordered By: Dr. Navarro on 01-18-2023 Bacteria LM.HPF (Urine sed) [#/Area] 0 /[HPF] None Seen [facility] Urine specific gravity measu rementOrdered By: Dr. Navarro on 01-18-2023 Specific gravity (U) [Rel density] 1.025 1.002-1.030 [facility] Urobilinogen Auto test strip Ql (U)Ordered By: Dr. Navarro on 01-18-2023 Urobilinogen Ql (U) Normal mg/dl Normal [facility] Whole blood hemoglobin A1c/t otal hemoglobin ratio (mass fraction)Ordered By: Dr. Navarro on 01-18-2023 HbA1c (Bld) [Mass fraction] 6.9 % 3.8-5.6 [facility] Comment on above: Normal < 5.7 % Predi abetic 5.7 - 6.4 % Diabetic >or= 6.5 % Please note range changes. COLONOSCOPY SCREENINGon [facility] Colonoscopyon 01-15-2023 Colonoscopy [facility] Gastrointestinal Endoscopy Patient Name: Vlad Siddiqi Procedure Date: 01/15/2023 7:59 AM Date of : 1960 Admit Type: Outpatient Age: 63 Gender: Male Note Status: Finalized Procedure: Colonoscopy Indications: Screening in patient at increased risk: Family history of 1st-degree relative with colorectal cancer before age 60 years Providers: Juan Guallpa MD Patient Profile: This is a 63 year old male. Refer to note in patient chart for documentation of history and physical. Last Colonoscopy: October 2019. Referring Physician: Sandy Kessler (pa) (Referring MD) Medicines: Fentanyl 50 micrograms IV, Midazolam 3 mg IV, Diphenhydramine 50 mg IV, Ondansetron 4 mg IV Complications: No immediate complications. Estimated blood loss: None. Requesting Provider: Procedure: Pre-Anesthesia Assessment: - Prior to the procedure, a History and Physical was performed, and patient medications and allergies were reviewed. The patient's tolerance of previous anesthesia was also reviewed. The risks and benefits of the procedure and the sedation options and risks were discussed with the patient. All questions were answered, and informed consent was obtained. Prior Anticoagulants: The patient has taken no anticoagulant or antiplatelet agents. ASA Grade Assessment: III - A patient with severe systemic disease. After reviewing the risks and benefits, the patient was deemed in satisfactory condition to undergo the procedure. After I obtained informed consent, the scope was passed under direct vision. Throughout the procedure, the patient's blood pressure, pulse, and oxygen saturations were monitored continuously. The Colonoscope was introduced through the anus and advanced to the cecum, identified by appendiceal orifice and ileocecal valve. The colonoscopy was performed without difficulty. The patient tolerated the procedure well. The quality of the bowel preparation was adequate to identify polyps 6 mm and larger in size. The ileocecal valve, appendiceal orifice, and rectum were photographed. Moderate Sedation: The administration of moderate sedation was initiated at 08:08 AM. Moderate (conscious) sedation was personally administered by the endoscopist. The following parameters were monitored: oxygen saturation, heart rate, blood pressure, and response to care. Total physician intraservice time was 13 minutes. Findings: The perianal and digital rectal examinations were normal. Multiple small-mouthed diverticula were found in the sigmoid colon. The exam was otherwise without abnormality. Impression: - Diverticulosis in the sigmoid colon. - The examination was otherwise normal. - No specimens collected. Recommendation: - Patient has a contact number available for emergencies. The signs and symptoms of potential delayed complications were discussed with the patient. Return to normal activities tomorrow. Written discharge instructions were provided to the patient. - Resume previous diet. - Continue present medications. - Repeat colonoscopy in 5 years for surveillance. - Return to primary care physician PRN. Procedure Code(s): --- Professional --- 27390, Colonoscopy, flexible; diagnostic, including collection of specimen(s) by brushing or washing, when performed (separate procedure) G0500, Moderate sedation services provided by the same physician or other qualified health assurance services manager health care performing a gastrointestinal endoscopic service that sedation supports, requiring the presence of an independent trained observer to assist in the monitoring of the patient's level of consciousness and physiological status; initial 15 minutes of intra-service time; patient age 5 years or older (additional time may be reported with 43508, as appropriate) Diagnosis Code(s): --- Professional --- Z12.11, Encounter for screening for malignant neoplasm of colon Z80.0, Family history of malignant neoplasm of digestive organs K57.30, Diverticulosis of large intestine without perforation or abscess without bleeding CPT copyright 2020 [employer]. All rights reserved. The codes documented in this report are preliminary and upon moisture meter operator review may be revised to meet current compliance requirements. Attending Participation: I personally performed the entire procedure. Scope In: 8:11:07 AM Scope Out: 8:21:57 AM MD Juan Luna MD 01/15/2023 8:25:22 AM This report has been signed electronically by Juan Guallpa MD Number of Addenda: 0 Note Initiated On: 01/15/2023 7:59 AM Estimated Blood Loss: Estimated blood loss: none. Normal [facility] HISTORY PHYSICALon HISTORY PHYSICAL HNO ID: [id number] Author: Juan Guallpa MD Service: General Surgery Author Type: Physician Type: HANDP Filed: 01/15/2023 8:01 AM Note Text: HISTORY AND PHYSICAL Vlad Siddiqi 1960 REFERRING PHYSICIAN: Vlad Kaur MD CHIEF COMPLAINT: Consult (Colonoscopy last colonoscopy was 10/2019) HPI: The patient is a 62 year old male referred for endoscopy. Vlad notes personal history of colon polyps and family history of colon cancer and is due for high-risk surveillance colonoscopy. Patient denies any change in bowel habits, weight changes, blood in stools, black tarry stools or abdominal pain. The patient notes no upper GI complaints. Vlad has undergone prior endoscopy. Last colonoscopy 11/04/[address] Kaur with removal of multiple polyps, 3 year [...] DX W/COLLJ SPEC WHEN PFRMD 09/13/06 repeat [id number] COLONOSCOPY FLX DX W/COLLJ SPEC WHEN PFRMD [...] at lunch, 30 units at supper. Insulin [place], Disposable, (PEN NEEDLES) 31 gauge x 1/4 ndle For insulin injection 3x daily. [place]-3 Fatty Acids 500 mg cap Take 1,000 [...] visit. ALLERGIES: Adhesive Tape (Rosins), [place] [Exenatide], [place], Grass Pollen, Penicillins, Sulfa (Sulfonamide Antibiotics), Thiazides, [...] Grandfather Ischemic Heart Disease Paternal Grandmother Diabetes Pater (more content not included)... Normal [facility] NURSING PROGon 01-15-2023 NURSING PROG HNO ID: [id number] Author: Lillian Olivarez RN Service: ? Author Type: Registered Nurse Type: Nursing Progress Note Filed: 01/15/2023 8:58 AM Note Text: Patient received in phase II via cart left lateral position, eyes closed but open to verbal stimuli, skin warm and dry, respirations regular and unlabored, abdomen rounded and slightly distended, denies pain, cramps or nausea. Encouraged to pass air rectally as able, resting comfortably on left side. Normal [facility] .Auto Diffon 01-12-2023 Basophil, Absolute 0.1 10 3/mcL Normal 0.0-0.2 [facility] ([place]) Comment on above: Performed By: #### A 1C, GFR, ANEU, ADIFF, BMP, CBC #### [facility] [place] [address] [place], [place] [address] Basophils/100 WBC (Bld) 1.2 % Normal 0.0-2.5 A [facility] ([place]) Comment on above: Performed By: #### A 1C, GFR, ANEU, ADIFF, BMP, CBC #### [address] [address] Eosinophil, Absolute 0.2 10 3/mcL Normal 0.0-0.4 [facility] ([place] Comment on above: Performed By: #### A 1C, GFR, ANEU, ADIFF, BMP, CBC #### [address] [address] Eosinophils/100 WBC (Bld) 3.9 % Normal 0.0-7.0 [facility] ([place] Comment on above: Performed By: #### A 1C, GFR, ANEU, ADIFF, BMP, CBC #### [address] [address] Lymphocyte, Absolute 1.6 10 3/mcL Normal 0.8-3.9 [facility] ([place] Comment on above: Performed By: #### A 1C, GFR, ANEU, ADIFF, BMP, CBC #### [address] [address] Lymphocytes/100 WBC (Bld) 26.5 % Normal 10.0-50.0 [facility] ([place] Comment on above: Performed By: #### A 1C, GFR, ANEU, ADIFF, BMP, CBC #### [address] [address] Monocyte, Absolute 0.4 10 3/mcL Normal 0.2-1.0 [facility] ([place] Comment on above: Performed By: #### A 1C, GFR, ANEU, ADIFF, BMP, CBC #### [address] [address] Monocytes/100 WBC (Bld) 7.2 % Normal 1.7-13.0 A [facility] ([place] Comment on above: Performed By: #### A 1C, GFR, ANEU, ADIFF, BMP, CBC #### [address] [address] Neutrophils/100 WBC (Bld) 61.2 % Normal 37.0-80.0 [facility] ([place] Comment on above: Performed By: #### A 1C, GFR, ANEU, ADIFF, BMP, CBC #### [address] [address] .GFRon 01-12-2023 GFR Non- 46 ml/min/1.73sqm Normal [facility] ([place]) Comment on above: Result Comment: GFR Population mean for , Non- Americans Ages 20-29 = 116 mL/min/1.73 sq.m. Ages 30-39 = 107 mL/min/1.73 sq.m. Ages 40-49 = 99 mL/min/1.73 sq.m. Ages 50-59 = 93 mL/min/1.73 sq.m. Ages 60-69 = 85 mL/min/1.73 sq.m. Ages 70+ = 75 mL/min/1.73 sq.m. Chronic Kidney Disease: Less than 60 mL/min/1.73 square meters End Stage Renal Disease: Less than 15 mL/min/1.73 square meters Performed By: #### A 1C, GFR, ANEU, ADIFF, BMP, CBC #### [address] [address] GFR 56 ml/min/1.73sqm Normal [facility] ([place] Comment on above: Result Comment: GFR Population mean for , Non- Americans Ages 20-29 = 116 mL/min/1.73 sq.m. Ages 30-39 = 107 mL/min/1.73 sq.m. Ages 40-49 = 99 mL/min/1.73 sq.m. Ages 50-59 = 93 mL/min/1.73 sq.m. Ages 60-69 = 85 mL/min/1.73 sq.m. Ages 70+ = 75 mL/min/1.73 sq.m. Chronic Kidney Disease: Less than 60 mL/min/1.73 square meters End Stage Renal Disease: Less than 15 mL/min/1.73 square meters Performed By: #### A 1C, GFR, ANEU, ADIFF, BMP, CBC #### [address] [address] .NEUABSon 01-12-2023 Neutrophil, Absolute 3.7 10 3/mcL Normal 2.9-6.2 [facility] ([place] Comment on above: Performed By: #### A 1C, GFR, ANEU, ADIFF, BMP, CBC #### [place] [address] A1Con 01-12-2023 HbA1c (Bld) [Mass fraction] 7.5 % High 4.3-6.4 [facility] ([place] Comment on above: Performed By: #### A 1C, GFR, ANEU, ADIFF, BMP, CBC #### [address] [address] BMPon 01-12-2023 BUN/Creatinine Ratio 13 ratio Normal 7-27 [facility] ([place] Comment on above: Performed By: #### A 1C, GFR, ANEU, ADIFF, BMP, CBC #### [address] [address] Calcium [Mass/Vol] 9.3 mg/dL Normal 8.4-10.2 [facility] ([place] Comment on above: Performed By: #### A 1C, GFR, ANEU, ADIFF, BMP, CBC #### [address] [address] Chloride [Moles/Vol] 106 mmol/L Normal 98-107 [facility] ([place] Comment on above: Performed By: #### A 1C, GFR, ANEU, ADIFF, BMP, CBC #### [address] [address] CO2 [Moles/Vol] 29 mmol/L Normal 23-31 [facility] ([place] Comment on above: Performed By: #### A 1C, GFR, ANEU, ADIFF, BMP, CBC #### [address] [address] Creatinine [Mass/Vol] 1.54 mg/dL High 0.70-1.30 [facility] ([place]) Comment on above: Performed By: #### A 1C, GFR, ANEU, ADIFF, BMP, CBC #### [address] [address] Electrolyte Balance 9.0 mEq/L Normal 4.0-15.0 [facility] ([place] Comment on above: Performed By: #### A 1C, GFR, ANEU, ADIFF, BMP, CBC #### [address] [address] Glucose [Mass/Vol] 102 mg/dL Normal 80-115 [facility] ([place] Comment on above: Performed By: #### A 1C, GFR, ANEU, ADIFF, BMP, CBC #### [address] [address] Potassium [Moles/Vol] 3.9 mmol/L Normal 3.5-5.1 [facility] ([place] Comment on above: Performed By: #### A 1C, GFR, ANEU, ADIFF, BMP, CBC #### [address] [address] Sodium [Moles/Vol] 144 mmol/L Normal 136-145 [facility] ([place] Comment on above: Performed By: #### A 1C, GFR, ANEU, ADIFF, BMP, CBC #### [address] [address] Urea nitrogen [Mass/Vol] 20 mg/dL High 7-18 [facility] ([place] Comment on above: Performed By: #### A 1C, GFR, ANEU, ADIFF, BMP, CBC #### [address] [address] CBCon 01-12-2023 Erythrocyte distribution width (RBC) [Ratio] 13.3 % Normal 11.5-14.5 [facility] ([place] Comment on above: Performed By: #### A 1C, GFR, ANEU, ADIFF, BMP, CBC #### [address] [address] Hematocrit (Bld) [Volume fraction] 42.7 % Normal 42.0-52.0 [facility] [place] Comment on above: Performed By: #### A 1C, GFR, ANEU, ADIFF, BMP, CBC #### [address] [address] Hgb 14.5 G/dL Normal 14.0-18.0 [facility] [place] Comment on above: Performed By: #### A 1C, GFR, ANEU, ADIFF, BMP, CBC #### [place] [address] MCH (RBC) [Entitic mass] 30.9 pg Normal 27.0-31.2 [facility] [place] Comment on above: Performed By: #### A 1C, GFR, ANEU, ADIFF, BMP, CBC #### [place] [address] MCHC 33.9 G/dL Normal 31.8-35.4 [facility] ([place] Comment on above: Performed By: #### A 1C, GFR, ANEU, ADIFF, BMP, CBC #### [address] [address] MCV (RBC) [Entitic vol] 91.1 fL Normal 80.0-94.0 A [facility] ([place] Comment on above: Performed By: #### A 1C, GFR, ANEU, ADIFF, BMP, CBC #### [address] [address] Platelet 204 10 3/mcL Normal 130-400 [facility] [place] Comment on above: Performed By: #### A 1C, GFR, ANEU, ADIFF, BMP, CBC #### [address] [address] Platelet mean volume (Bld) [Entitic vol] 6.7 fL Low 7.4-10.4 [facility] ([place]) Comment on above: Performed By: #### A 1C, GFR, ANEU, ADIFF, BMP, CBC #### [place] [id number] RBC 4.69 10 6/mcL Normal 4.04-6.13 [facility] ([place]) Comment on above: Performed By: #### A 1C, GFR, ANEU, ADIFF, BMP, CBC #### [place] [id number] [place], [place] [address] WBC 6.1 10 3/mcL Normal 4.6-10.8 [facility] ([place]) Comment on above: Performed By: #### A 1C, GFR, ANEU, ADIFF, BMP, CBC #### [place] [id number] [place], [place] [address] CT SPINE LUMBAR W/O CONTRAST on 01-11-2023 CT SPINE LUMBAR W/O CONTRAST ORIGINAL EXAMINATION: CT OF THE LUMBAR SPINE WITHOUT CONTRAST 2023 TECHNIQUE: CT of the lumbar spine was performed without the administration of intravenous contrast. Multiplanar reformatted images are provided for review. Adjustment of mA and/or kV according to patient size was utilized. Automated exposure control, iterative reconstruction, and/or weight based adjustment of the mA/kV was utilized to reduce the radiation dose to as low as reasonably achievable. COMPARISON: MR lumbar spine 02/13/2022 HISTORY: ORDERING SYSTEM PROVIDED HISTORY: Reason for Exam: Spinal stenosis, lumbar region with neurogenic claudication. Preop evaluation. FINDINGS: BONES/ALIGNMENT: There are 6 lumbar type, non rib-bearing vertebral bodies present. For the sake of uniformity, lowest lumbar disc space is labeled L5-S1. Minimal retrolisthesis of L5 on S1. Minimal retrolisthesis of L3 on L4 also. Vertebral body heights are maintained. 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 DEGENERATIVE CHANGES: Multilevel degenerative disc disease of lumbar spine, moderate at L1-L2 and L2-3, mild at L3-4 with disc space narrowing and marginal osteophytosis. There is moderate facet arthrosis at L4-5. Mild degenerative changes at the synovial sacroiliac joints with marginal osteophytes and subchondral cyst. Also noted is symmetric bridging osteophytes at the fibrous portion of sacroiliac joints. Overall, there is reduced caliber of spinal canal, pronounced at L4 measuring up to 0.9 cm. T12-L1: Ligamentum flavum hypertrophy. No significant stenosis. L1-L2: Disc osteophyte complex, circumferential disc bulge and ligamentum flavum hypertrophy contributes to mild spinal canal stenosis and right lateral recess narrowing. Moderate bilateral foraminal stenosis. L2-L3: Disc osteophyte complex, moderate circumferential disc bulge and ligamentum flavum hypertrophy contributes to moderate spinal canal stenosis. Severe bilateral foraminal stenosis. L3-L4: Circumferential disc bulge and ligamentum flavum hypertrophy contributes to ooqr-[id number] spinal canal stenosis. Severe bilateral foraminal stenosis. L4-L5: Marked circumferential disc bulge and ligamentum flavum hypertrophy contributes to severe spinal canal stenosis. Marked facet arthrosis with severe bilateral foraminal stenosis. L5-S1: Circumferential disc bulge. No significant spinal canal stenosis. Severe left and moderate right foraminal stenosis. SOFT TISSUES/RETROPERITONEUM : No paraspinal mass is seen. IMPRESSION: 1. No compression deformities. 2. Multilevel lumbar spondyloarthropathy as detailed above. I have personally reviewed the images of this examination and agree with the resident's finding and interpretation. Interpreted by: Dmitriy Shook DO Preliminary Report By: Rand Del Toro Electronically signed By Dmitriy Shook DO Dictated Date: 01/10/2023 8:16:23 AM Prelim Date: 01/11/2023 10:58:48 AM Sign Date: 01/11/2023 10:58:48 AM Ordering Provider: NIK Martinez [facility] ([place] Laboratory - Hematology and Cell countson 01-02-2023 HbA1c (Bld) [Mass fraction] 7.7 % 4.2-6.3 [facility] 12-28-2022 THUY Telephone (KWESIS) VLAD SIDDIQI ([id number]) 1960 M Date Time Provider Department 12/28/22 JUAN GUALLPA During your visit today, we recorded the following information about you: Mychal Allen 12/28/2022 9:04 AM Signed Patient called in to inform Dr. Guallpa that patient is to have anesthesia for his shot for his back on 01/17/2023 and wasn't sure if this would interfere with colonoscopy at [facility] on 01/15/2023 Please advise Thank you Mychal Allen Help Desk Coordinator Juan Guallpa III, MD 01/02/2023 3:30 PM Signed There will be no interference Mychal Allen 01/03/2023 8:24 AM Signed Patient notified Mychal Allen 01/08/2023 11:38 AM Addendum Patient called in stating his diabetic doctor has an issue with no fiber - more protein diet leading up to colonoscopy due to sugar levels. Patient asking what to do Please advise Mychal Allen Help Desk Coordinator Mychal Allen 01/16/2023 10:53 AM Signed Patient notified our instructions state no fiber diet to decrease the amount of stool being made to allow a full clean out for procedure. Failure to be cleaned out could result in not being able to complete procedure. Patent aware and verbalized understanding. Would like to proceed with procedure. Mychal Allen Help Desk Coordinator Allergies As of Date: 12/28/2022 Noted Allergy Reaction ADHESIVE TAPE (ROSINS) 12/24/2013 2 - Rash 9 - Itching BYETTA (EXENATIDE) 12/05/2005 Comments: 5 mcg dose caused persistent nausea GOLDENROD 04/05/2012 14 - Other: See Comments GRASS POLLEN 04/05/2012 14 - Other: See Comments PENICILLINS 05/06/2005 2 - Rash SULFA (SULFONAMIDE ANTIBIOTICS) 05/06/2005 2 - Rash THIAZIDES 03/15/2015 2 - Rash TREES 04/05/2012 14 - Other: See Comments DOXYCYCLINE 09/02/2005 2 - Rash Date Reviewed: 10/17/2022 Reviewed by: Sandy Kessler PA-C - Fully Assessed Reason for Visit: Patient Update [1234] Prescriptions as of 01/16/2023 - cholecalciferol (VITAMIN D-3) 5,000 unit tab Take 5,000 Units by mouth once daily. - pregabalin (LYRICA) 100 mg capsule Take 100 mg by mouth three times daily. - loratadine (CLARITIN) 10 mg tablet Take by mouth. - meloxicam (MOBIC) 15 mg tablet Take 15 mg by mouth once daily. - Tadalafil (CIALIS) 10 mg tablet Take 10 mg by mouth as needed. - ubidecarenone Q-10 (COENZYME Q-10) 10 mg cap Take 100 mg by mouth once daily. - albuterol HFA (PROVENTIL HFA, VENTOLIN HFA) 90 mcg/actuation inhaler Inhale 1 Puff as instructed as needed. - FLOVENT HFA 220 mcg/actuation inhaler - Insulin Syringe-Needle U-100 1 mL 31 gauge x 5/16 syrg Two daily for insulin injections. - insulin glargine (LANTUS) 100 unit/mL injection 60 units in the am and 60 units in the pm. - insulin aspart (NOVOLOG FLEXPEN) 100 unit/mL inpn Inject 20 units sc at breakfast, 25 units at lunch, 30 units at supper. - Insulin [place], Disposable, (PEN NEEDLES) 31 gauge x 1/4 ndle For insulin injection 3x daily. - [place]-3 Fatty Acids 500 mg cap Take 1,000 mg by mouth twice daily. - lisinopril (ZESTRIL, PRINIVIL) 20 mg tablet Take 10 mg by mouth once daily. - atorvastatin (LIPITOR) 20 mg tablet Take 20 mg by mouth once daily. - LOVAZA 1 gram capsule Take 2 capsules by mouth twice daily. - blood sugar diagnostic Misc test strip before meals and at bedtime. accu check test strips Use as instructed 3-4 times daily. - COMPOUNDED PRESCRIPTION BLOOD PRESSURE CUFF FOR HOME USE. DX: LABILE BLOOD PRESSURE - aspirin, enteric coated (ASPIRIN, ENTERIC COATED) 81 mg EC tablet Take one(1) tablet daily. - multivitamin ORAL tablet Take one(1) tablet daily. Problem List As Of Date 12/28/2022 Noted Resolved Hypertension [I10] Hyperlipidemia [E78.5] Generalized osteoarthrosis, unspecified site [M* Type 2 diabetes mellitus (HCC) [E11.9] 09/24/1999 Impotence of organic origin [N52.9] 08/26/2005 Diabetic neuropathy [E11.40] Cervical radiculopathy [M54.12] 05/08/2013 Morbid obesity (HCC) [E66.01] 03/15/2015 Insulin long-term use ([facility]) [Z79.4] 09/15/2015 Encounter Status:[facility] CNPN [facility] (ASWSTR) VINHVLAD ([id number]) 1960 M Date Time Provider Department 11/24/22 JUAN GUALLPA ASWSTR During your visit today, we recorded the following information about you: Concetta Kumar 11/24/2022 3:02 PM Signed Patient called and canceled his colonoscopy screening due to finances. Allergies As of Date: 11/24/2022 Noted Allergy Reaction ADHESIVE TAPE (ROSINS) 12/24/2013 2 - Rash 9 - Itching BYETTA (EXENATIDE) 12/05/2005 Comments: 5 mcg dose caused persistent nausea GOLDENROD 04/05/2012 14 - Other: See Comments GRASS POLLEN 04/05/2012 14 - Other: See Comments PENICILLINS 05/06/2005 2 - Rash SULFA (SULFONAMIDE ANTIBIOTICS) 05/06/2005 2 - Rash THIAZIDES 03/15/2015 2 - Rash TREES 04/05/2012 14 - Other: See Comments DOXYCYCLINE 09/02/2005 2 - Rash Date Reviewed: 10/17/2022 Reviewed by: Sandy Kessler PA-C - Fully Assessed Reason for Visit: Procedure [88] Cmt: Cancellation Prescriptions as of 12/28/2022 - pregabalin (LYRICA) 100 mg capsule Take 100 mg by mouth three times daily. - loratadine (CLARITIN) 10 mg tablet Take by mouth. - meloxicam (MOBIC) 15 mg tablet Take 15 mg by mouth once daily. - Tadalafil (CIALIS) 10 mg tablet Take 10 mg by mouth as needed. - cholecalciferol, vitamin D3, (VITAMIN D3 ORAL) Take 5,000 mg by mouth once daily. - ubidecarenone Q-10 (COENZYME Q-10) 10 mg cap Take 100 mg by mouth once daily. - albuterol HFA (PROVENTIL HFA, VENTOLIN HFA) 90 mcg/actuation inhaler Inhale 1 Puff as instructed as needed. - FLOVENT HFA 220 mcg/actuation inhaler - Insulin Syringe-Needle U-100 1 mL 31 gauge x 5/16 syrg Two daily for insulin injections. - insulin glargine (LANTUS) 100 unit/mL injection 60 units in the am and 60 units in the pm. - insulin aspart (NOVOLOG FLEXPEN) 100 unit/mL inpn Inject 20 units sc at breakfast, 25 units at lunch, 30 units at supper. - Insulin [place], Disposable, (PEN NEEDLES) 31 gauge x 1/4 ndle For insulin injection 3x daily. - [place]-3 Fatty Acids 500 mg cap Take 1,000 mg by mouth twice daily. - lisinopril (ZESTRIL, PRINIVIL) 20 mg tablet Take 10 mg by mouth once daily. - atorvastatin (LIPITOR) 20 mg tablet Take 20 mg by mouth once daily. - LOVAZA 1 gram capsule Take 2 capsules by mouth twice daily. - blood sugar diagnostic [facility] test strip before meals and at bedtime. accu check test strips Use as instructed 3-4 times daily. - COMPOUNDED PRESCRIPTION BLOOD PRESSURE CUFF FOR HOME USE. DX: LABILE BLOOD PRESSURE - aspirin, enteric coated (ASPIRIN, ENTERIC COATED) 81 mg EC tablet Take one(1) tablet daily. - multivitamin ORAL tablet Take one(1) tablet daily. Problem List As Of Date 11/24/2022 Noted Resolved Hypertension [I10] Hyperlipidemia [E78.5] Generalized osteoarthrosis, unspecified site [M* Type 2 diabetes mellitus (HCC) [E11.9] 09/24/1999 Impotence of organic origin [N52.9] 08/26/2005 Diabetic neuropathy [E11.40] Cervical radiculopathy [M54.12] 05/08/2013 Morbid obesity (HCC) [E66.01] 03/15/2015 Insulin long-term use (HCC) [Z79.4] 09/15/2015 Encounter Status:Closed by MYCHAL ALLEN on 12/28/22 [facility]22 [facility]. Send Out See Comments Normal [facility] ([place]) Comment on above: Result Comment: Comp lete reference lab report scanned to EMR. Performed By: #### A DIFF, ANEU, CBC #### [address] [address] .Auto Diffon 11-10-2022 Basophil, Absolute 0.0 10 3/mcL Normal 0.0-0.2 [facility] ([place]) Comment on above: Performed By: #### A DIFF, ANEU, CBC #### [address] [address] Basophils/100 WBC (Bld) 0.5 % Normal 0.0-2.5 A [facility] ([place]) Comment on above: Performed By: #### A DIFF, ANEU, CBC #### [address] [address] Eosinophil, Absolute 0.1 10 3/mcL Normal 0.0-0.4 [facility] ([place]) Comment on above: Performed By: #### A DIFF, ANEU, CBC #### [address] [address] Eosinophils/100 WBC (Bld) 1.1 % Normal 0.0-7.0 [facility] ([place]) Comment on above: Performed By: #### A DIFF, ANEU, CBC #### [address] [address] Lymphocyte, Absolute 1.7 10 3/mcL Normal 0.8-3.9 [facility] ([place]) Comment on above: Performed By: #### A DIFF, ANEU, CBC #### [address] [address] Lymphocytes/100 WBC (Bld) 19.1 % Normal 10.0-50.0 [facility] ([place]) Comment on above: Performed By: #### A DIFF, ANEU, CBC #### [address] [address] Monocyte, Absolute 0.8 10 3/mcL Normal 0.2-1.0 [facility] ([place]) Comment on above: Performed By: #### A DIFF, ANEU, CBC #### [address] [address] Monocytes/100 WBC (Bld) 8.5 % Normal 1.7-13.0 A [facility] ([place]) Comment on above: Performed By: #### A DIFF, ANEU, CBC #### [address] [address] Neutrophils/100 WBC (Bld) 70.8 % Normal 37.0-80.0 [facility] ([place] Comment on above: Performed By: #### A DIFF, ANEU, CBC #### [address] [address] .NEUABSon 11-10-2022 Neutrophil, Absolute 6.3 10 3/mcL High 2.9-6.2 [facility] ([place]) Comment on above: Performed By: #### A DIFF, ANEU, CBC #### [address] [address] CBCon 11-10-2022 Erythrocyte distribution width (RBC) [Ratio] 13.1 % Normal 11.5-14.5 [facility] ([place] Comment on above: Performed By: #### A DIFF, ANEU, CBC #### [address] [address] Hematocrit (Bld) [Volume fraction] 43.7 % Normal 42.0-52.0 [facility] [place] Comment on above: Performed By: #### A DIFF, ANEU, CBC #### [address] [address] Hgb 14.8 G/dL Normal 14.0-18.0 [facility] [place] Comment on above: Performed By: #### A DIFF, ANEU, CBC #### [address] [address] MCH (RBC) [Entitic mass] 31.1 pg Normal 27.0-31.2 [facility] [place] Comment on above: Performed By: #### A DIFF, ANEU, CBC #### [address] [address] MCHC 33.9 G/dL Normal 31.8-35.4 [facility] [place] Comment on above: Performed By: #### A DIFF, ANEU, CBC #### [address] [address] MCV (RBC) [Entitic vol] 91.5 fL Normal 80.0-94.0 A [facility] ([place]) Comment on above: Performed By: #### A DIFF, ANEU, CBC #### [address] [address] Platelet 163 10 3/mcL Normal 130-400 [facility] ([place] Comment on above: Performed By: #### A DIFF, ANEU, CBC #### [address] [address] Platelet mean volume (Bld) [Entitic vol] 7.8 fL Normal 7.4-10.4 [facility] [place] Comment on above: Performed By: #### A DIFF, ANEU, CBC #### [address] [address] RBC 4.77 10 6/mcL Normal 4.04-6.13 [facility] [place] Comment on above: Performed By: #### A DIFF, ANEU, CBC #### [address] [address] WBC 9.0 10 3/mcL Normal 4.6-10.8 [facility] [place] Comment on above: Performed By: #### A DIFF, ANEU, CBC #### [address] [address] .GFRon 11-09-2022 GFR Non- 47 ml/min/1.73sqm Normal [facility] ([place] Comment on above: Result Comment: GFR Population mean for , Non- Americans Ages 20-29 = 116 mL/min/1.73 sq.m. Ages 30-39 = 107 mL/min/1.73 sq.m. Ages 40-49 = 99 mL/min/1.73 sq.m. Ages 50-59 = 93 mL/min/1.73 sq.m. Ages 60-69 = 85 mL/min/1.73 sq.m. Ages 70+ = 75 mL/min/1.73 sq.m. Chronic Kidney Disease: Less than 60 mL/min/1.73 square meters End Stage Renal Disease: Less than 15 mL/min/1.73 square meters Performed By: #### A DIFF, ANEU, CBC #### [address] [address] GFR 57 ml/min/1.73sqm Normal [facility] [place] Comment on above: Result Comment: GFR Population mean for , Non- Americans Ages 20-29 = 116 mL/min/1.73 sq.m. Ages 30-39 = 107 mL/min/1.73 sq.m. Ages 40-49 = 99 mL/min/1.73 sq.m. Ages 50-59 = 93 mL/min/1.73 sq.m. Ages 60-69 = 85 mL/min/1.73 sq.m. Ages 70+ = 75 mL/min/1.73 sq.m. Chronic Kidney Disease: Less than 60 mL/min/1.73 square meters End Stage Renal Disease: Less than 15 mL/min/1.73 square meters Performed By: #### A DIFF, ANEU, CBC #### [address] [address] BMPon 11-09-2022 BUN/Creatinine Ratio 19 ratio Normal 7-27 [facility] ([place] Comment on above: Performed By: #### A DIFF, ANEU, CBC #### [address] [address] Calcium [Mass/Vol] 8.9 mg/dL Normal 8.4-10.2 [facility] ([place]) Comment on above: Performed By: #### A DIFF, ANEU, CBC #### [address] [address] Chloride [Moles/Vol] 107 mmol/L Normal 98-107 [facility] ([place] Comment on above: Performed By: #### A DIFF, ANEU, CBC #### [address] [address] CO2 [Moles/Vol] 26 mmol/L Normal 23-31 [facility] [place] Comment on above: Performed By: #### A DIFF ANEU, CBC #### [address] [address] Creatinine [Mass/Vol] 1.50 mg/dL High 0.70-1.30 [facility] ([place]) Comment on above: Performed By: #### A DIFF ANEU, CBC #### [address] [address] Electrolyte Balance 10.0 mEq/L Normal 4.0-15.0 [facility] ([place] Comment on above: Performed By: #### A DIFF ANEU, CBC #### [address] [address] Glucose [Mass/Vol] 176 mg/dL High 80-115 [facility] ([place] Comment on above: Performed By: #### A DIFF ANEU, CBC #### [address] [address] Potassium [Moles/Vol] 4.4 mmol/L Normal 3.5-5.1 [facility] ([place] Comment on above: Performed By: #### A DIFF ANEU, CBC #### [address] [address] Sodium [Moles/Vol] 143 mmol/L Normal 136-145 [facility] ([place] Comment on above: Performed By: #### A DIFF ANEU, CBC #### [address] [address] Urea nitrogen [Mass/Vol] 28 mg/dL High 7-18 [facility] ([place] Comment on above: Performed By: #### A DIFF, ANEU, CBC #### [address] [address] LABORATORYOrdered By: SYSTEM SYSTEM on 11-09-2022 Calcium [Mass/Vol] 8.9 mg/dL Invalid Interpretation Code 8.4 - 10.2 mg/dL AO ADM SS Chloride [Moles/Vol] 107 mmol/L Invalid Interpretation Code 98 - 107 mmol/L AO ADM SS CO2 [Moles/Vol] 26 mmol/L Invalid Interpretation Code 23 - 31 mmol/L AO ADM SS Creatinine [Mass/Vol] 1.50 mg/dL Invalid Interpretation Code 0.70 - 1.30 mg/dL AO ADM SS Electrolyte Balance 10.0 mEq/L Invalid Interpretation Code 4.0 - 15.0 mEq/L AO ADM SS GFR 57 ml/min/1.73sqm Invalid Interpretation Code AO Chemistry S GFR Non- 47 ml/min/1.73sqm Invalid Interpretation Code AO Chemistry S Glucose [Mass/Vol] 176 mg/dL Invalid Interpretation Code 80 - 115 mg/dL AO ADM SS Potassium [Moles/Vol] 4.4 mmol/L Invalid Interpretation Code 3.5 - 5.1 mmol/L AO ADM SS Sodium [Moles/Vol] 143 mmol/L Invalid Interpretation Code 136 - 145 mmol/L AO ADM SS Urea nitrogen [Mass/Vol] 28 mg/dL Invalid Interpretation Code 7 - 18 mg/dL AO ADM SS Urea nitrogen/Creatinine [Mass ratio] 19 ratio Invalid Interpretation Code 7 - 27 ratio AO ADM SS CNOVon 10-17-2022 CNOV Office Visit (GENSWS ) VLAD SIDDIQI ([id number]) 1960 M Date Time Provider Department 10/17/22 3:30 PM SANDY KESSLERS During your visit today, we recorded the following information about you: Temperature Pulse Blood pressure Weight 98.6 degrees 103/minute 126/82 118.4 kg Height 1.676 m Dinorah Bourne LPN 10/17/2022 3:41 PM Signed [...] last Mammogram screening? N/A Last Colonoscopy: 2019 BARTOLO Garcia PA-C 10/17/2022 5:34 PM Signed HISTORY AND PHYSICAL Vlad Siddiqi 1960 REFERRING PHYSICIAN: Vlad Kaur MD CHIEF COMPLAINT: Consult (Colonoscopy last colonoscopy was 10/2019) HPI: The patient is a 62 year old male referred for endoscopy. Vlad notes personal history of colon polyps and family history of colon cancer and is due for high-risk surveillance colonoscopy. Patient denies any change in bowel habits, weight changes, blood in stools, black tarry stools or abdominal pain. The patient notes no upper GI complaints. Vlad has undergone prior endoscopy. Last colonoscopy 11/04/[address] Kaur with removal of multiple polyps, 3 year [...] DX W/COLLJ SPEC WHEN PFRMD 09/13/06 repeat [id number] COLONOSCOPY FLX DX W/COLLJ SPEC WHEN PFRMD 06-17-12 Colonoscopy q5y COLONOSCOPY FLX DX W/COLLJ SPEC WHEN PFRMD 11/04/2019 adenomatous polyps, repeat in 3 years PAST SURGICAL HISTORY OF wisdom teeth Current Outpatient Medicatio (more content not included)... Normal [facility] Laboratory - Hematology and Cell countson 10-09-2022 HbA1c (Bld) [Mass fraction] 7.9 % [facility] Absolute lymphocyte counton 07-24-2022 Lymphocytes Auto (Unsp spec) [#/Vol] 1.63 10*3/uL 0.83-4.51 [facility] Work Phone: Basophil percentageon 2021 Basophils/100 WBC (Bld) 0.6 % 0-1 [facility] Work Phone: Bilirubin [Mass/Vol] 0.40 mg/dL 0.20-1.00 [facility] Work Phone: Comment on above: For patients on eltr ombopag therapy, use of Dimension [place] TBIL is not recommended. Chloride [Moles/Vol] 107 mmol/L 98-107 [facility] Work Phone: Eosinophils/100 WBC (Bld) 2.8 % 0-5 [facility] Work Phone: Glucose [Mass/Vol] 120 mg/dL 74-106 [facility] Work Phone: Comment on above: Fasting Glucose resu lt from 100 to 125 mg/dL suggests IMPAIRED HOMEOSTASIS per A.D.A. criteria. Neutrophils (Bld) [#/Vol] 5.2 10*3/uL 2.0-7.7 [facility] Work Phone: Neutrophils/100 WBC (Bld) 66.4 % 47-70 [facility] Work Phone: Potassium [Moles/Vol] 3.8 mmol/L 3.5-5.1 [facility] Work Phone: Protein [Mass/Vol] 7.1 g/dL 6.4-8.2 [facility] Work Phone: Sodium [Moles/Vol] 141 mmol/L 136-145 [facility] Work Phone: WBC (Bld) [#/Vol] 7.8 10*3/uL 4.4-11.0 [facility] Work Phone: Blood erythrocytes count (nu mber/volume)on 07-24-2022 RBC (Bld) [#/Vol] 4.54 10*6/uL 4.6-6.2 [facility] Work Phone: Blood hemoglobin measurement (mass/volume)on 07-24-2022 Hemoglobin (Bld) [Mass/Vol] 14.3 g/dL 13.0-16.5 [facility] Work Phone: Blood lymphocytes/100 leukoc yteson 07-24-2022 Lymphocytes/100 WBC (Bld) 21.0 % 19-41 [facility] Work Phone: Blood monocytes/100 leukocyt eson 07-24-2022 Monocytes/100 WBC (Bld) 8.9 % 0-10 [facility] Work Phone: Blood platelet mean volumeon 07-24-2022 Platelet mean volume (Bld) [Entitic vol] 8.5 fL 6.2-12.0 [facility] Work Phone: Determination of erythrocyte mean corpuscular volume (MCV)on 07-24-2022 MCV (RBC) [Entitic vol] 95.6 fL 80-94 [facility] Work Phone: Hematocrit Auto (Bld) [Volum e fraction]on 07-24-2022 Hematocrit (Bld) [Volume fraction] 43.4 % 40-54 [facility] Work Phone: Laboratory - Chemistry and C hemistry - challengeon 07-24-2022 ALP [Catalytic activity/Vol] 57 U/L 45-117 [facility] Work Phone: ALT [Catalytic activity/Vol] 43 U/L 16-61 [facility] Work Phone: CO2 [Moles/Vol] 28.0 mmol/L 21.0-32.0 [facility] Work Phone: Globulin (S) [Mass/Vol] 3.8 g/dL 2.2-4.2 [facility] Work Phone: Urea nitrogen/Creatinine [Mass ratio] 17.8 mg/mg 10-20 [facility] Work Phone: Laboratory - Hematology and Cell countson 07-24-2022 Erythrocyte distribution width (RBC) [Entitic vol] 41.3 fL 35.1-43.9 [facility] Work Phone: Erythrocyte distribution width (RBC) [Ratio] 11.8 % 11.6-14.6 [facility] Work Phone: [phone] Immature granulocytes/100 WBC (Bld) 0.300 % 0.0-0.9 [facility] Work Phone: [phone] Comment on above: IG% - Immature Granu locytes (promyelocytes, myelocytes and metamyelocytes) > 1% indicates that a LEFT SHIFT is Present. MCH (RBC) [Entitic mass] 31.5 pg 27.0-32.0 [facility] Work Phone: [phone] Nucleated RBC/100 WBC (Bld) [Ratio] 0 % 0-5 [facility] Work Phone: [phone] MCHC Auto (RBC) [Mass/Vol]on 07-24-2022 MCHC (RBC) [Mass/Vol] 32.9 g/dL 32-36 [facility] Work Phone: No Panel Informationon 07-24 Estimated GFR (MDRD) Amer 73 mL/min >60 [facility] Work Phone: [phone] Comment on above: GFR Calc Estimated GFR (MDRD) Non-Af Amer 60 mL/min >60 [facility] Work Phone: [phone] Comment on above: Non- GFR Calc Platelets bldon 07-24-2022 Platelets (Bld) [#/Vol] 187 10*3/uL 150-450 [facility] Work Phone: [phone] Serum or plasma albumin melanie urement (mass/volume)on 07-24-2022 Albumin [Mass/Vol] 3.3 g/dL 3.2-5.0 [facility] Work Phone: [phone] Serum or plasma albumin/glob ulin mass ratioon 07-24-2022 Albumin/Globulin [Mass ratio] 0.9 {ratio} 0.9-2.4 [facility] Work Phone: [phone] Serum or plasma calcium melanie urement (mass/volume)on 07-24-2022 Calcium [Mass/Vol] 9.0 mg/dL 8.5-10.1 [facility] Work Phone: [phone] Serum or plasma creatinine m easurement (mass/volume)on 07-24-2022 Creatinine [Mass/Vol] 1.29 mg/dL 0.70-1.30 [facility] Work Phone: Comment on above: The validity of the calculated GFR & GFRAA in patients over 70 years has not been determined. Clinical correlation is essential. Serum or plasma urea nitroge n measurement (mass/volume)on 07-24-2022 Urea nitrogen [Mass/Vol] 23 mg/dL 7-18 [facility] Work Phone: Thin prep Papanicolaou smear with manual screeningon 07-24-2022 Thin prep Papanicolaou smear with manual screening 17 U/L 15-37 [facility] Work Phone: Thin prep Papanicolaou smear with manual screening 6 5-15 [facility] Work Phone: Laboratory - Hematology and Cell countson 05-09-2022 HbA1c (Bld) [Mass fraction] 7.9 % [facility] Work Phone: MRI SPINE LUMBAR W/O CONTRAS Ton 02-14-2022 MRI SPINE LUMBAR W/O CONTRAST ORIGINAL INDICATION:ORDERING SYSTEM PROVIDED HISTORY: Reason for Exam: M48.061 - SPINAL STENOSIS, LUMBAR REGION WITHOUT NEUROGENIC CLAUDICATION, 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 COMPARISON: CT abdomen and pelvis 06/16/2021 FINDINGS: ALIGNMENT: Trace degenerative anterolisthesis of L4 on L5. VERTEBRAE: No acute/recent fracture. Mild endplate degenerative changes of L1-L2 and L2-L3 noted. A hemangioma within the anterior L3 vertebral body is present. DISCS: Moderate to severe disc height loss involves L1-L2 and L2-L3. Mild disc height loss is present at L5-S1. widespread disc desiccation involves each lumbar level. CONUS MEDULLARIS AND CAUDA EQUINA: The conus medullaris terminates at T12. Variation fatty infiltration of the filum terminale. Spinal canal: Overall reduced caliber of the spinal canal measuring 11-12 mm at L1 likely on the basis of congenitally shortened pedicles. PARAVERTEBRAL SOFT TISSUES: Unremarkable. EVALUATION OF INDIVIDUAL LEVELS DEMONSTRATES: T12-L1: No stenosis. Bilateral facet arthrosis. L1-2: A small circumferential disc bulge and facet arthrosis causes mild central canal stenosis. L2-3: A circumferential disc bulge with superimposed left subarticular and foraminal herniation in combination with ligamentum flavum hypertrophy and facet arthrosis causes moderate central canal, bilateral, left greater than right lateral recess, severe left and moderately severe right foraminal stenosis with expected impingement of the exiting left L2 and bilateral traversing L3 nerve roots. The right L2 nerve root may be impinged. L3-4: A circumferential bulge asymmetric to the right foraminal zone in combination with ligamentum flavum hypertrophy and facet arthrosis causes mild central canal, bilateral lateral recess and moderately severe bilateral foraminal stenosis with expected impingement of the bilateral exiting L3 nerve roots. L4-5: A circumferential disc bulge asymmetric to the right foraminal and lateral zones with superimposed foraminal herniation in combination with ligamentum flavum hypertrophy and moderate facet arthrosis causes moderate central canal, severe right and moderate left foraminal stenosis with expected impingement of the exiting right L4 nerve root. L5-S1: Congenital mild central canal stenosis. Facet arthrosis causes mild left foraminal stenosis. LIMITED EVALUATION OF UPPER SACRUM AND SACROILIAC JOINTS: Mild degenerative changes of the bilateral, right greater than left sacroiliac joints. IMPRESSION: 1. L1-L2: Mild central canal stenosis. 2. L2-L3: Left subarticular and foraminal herniation, moderate central canal, bilateral lateral recess, severe left and moderately severe right foraminal stenosis. 3. L3-L4: Mild central canal, bilateral lateral recess, and moderately severe bilateral foraminal stenosis. 4. L4-5: Moderate central canal, severe right moderate left foraminal stenosis. 5. L5-S1: Mild central canal and mild left foraminal stenosis. Interpreted by: Bereket Finnegan MD Preliminary Report By: Bereket Finnegan MD Electronically signed By Bereket Finnegan MD Dictated Date: 02/14/2022 2:36:05 PM Prelim Date: 02/14/2022 2:51:41 PM Sign Date: 02/14/2022 2:51:41 PM Ordering Provider: EDIE CHRIS [facility] ([place] Basophil percentageon 2021 Bilirubin [Mass/Vol] 0.40 mg/dL 0.20-1.00 [facility] Work Phone: Comment on above: For patients on eltr ombopag therapy, use of Dimension [place] TBIL is not recommended. Chloride [Moles/Vol] 107 mmol/L 98-107 [facility] Work Phone: [phone] Cholesterol [Mass/Vol] 123 mg/dL <200 [facility] Work Phone: [phone] Comment on above: <200 mg/dL Desirable 200-240 mg/dL Borderline >240 mg/dL High Risk Glucose [Mass/Vol] 230 mg/dL 74-106 [facility] Work Phone: [phone] Comment on above: Glucose result great er than or equal to 200 mg/dLsuggests DIABETES MELLITUS per A.D.A. criteria. Potassium [Moles/Vol] 4.0 mmol/L 3.5-5.1 [facility] Work Phone: [phone] Protein [Mass/Vol] 7.0 g/dL 6.4-8.2 [facility] Work Phone: [phone] Sodium [Moles/Vol] 139 mmol/L 136-145 [facility] Work Phone: [phone] Triglyceride [Mass/Vol] 117 mg/dL [facility] Work Phone: Comment on above: The drugs N-Acetylcy steine and Metamizole may falsely depress this assay.Serum Triglycerides Reference Interval Normal <150 mg/dL Borderline high 150 - 199 mg/dL High 200 - 499 mg/dL Very High > or = 500 mg/dL Laboratory - Chemistry and C hemistry - challengeon 01-17-2022 ALP [Catalytic activity/Vol] 71 U/L 45-117 [facility] Work Phone: [phone] ALT [Catalytic activity/Vol] 42 U/L 16-61 [facility] Work Phone: [phone] CO2 [Moles/Vol] 25.0 mmol/L 21.0-32.0 [facility] Work Phone: [phone] Globulin (S) [Mass/Vol] 3.5 g/dL 2.2-4.2 [facility] Work Phone: [phone] Urea nitrogen/Creatinine [Mass ratio] 18.3 mg/mg 10-20 [facility] Work Phone: [phone] Cobalamin (Vitamin B12) [Mass/Vol] 550 pg/mL 211-911 [facility] Work Phone: [phone] Laboratory - Hematology and Cell countson 01-17-2022 HbA1c (Bld) [Mass fraction] 8.0 % [facility] Work Phone: [phone] No Panel Informationon 01-17 Urine Microalbumin/Creatinine Ratio 70.0 mg/g CRE <30 [facility] Work Phone: Estimated GFR (MDRD) Amer 71 mL/min >60 [facility] Work Phone: [phone] Comment on above: GFR Calc Estimated GFR (MDRD) Non-Af Amer 59 mL/min >60 [facility] Work Phone: Comment on above: Non- GFR Calc Thyroid Stimulating Hormone (TSH) 1.53 uIU/mL 0.358-3.74 [facility] Work Phone: Vitamin D 25-Hydroxy 57.7 ng/mL [facility] Work Phone: Comment on above: Vitamin D 25(OH) Sta tus Range Deficiency <20 ng/mL (50nmol/L) Insufficiency 20 - 30 ng/mL (50 - 75 nmol/L) Sufficiency 30 - 100 ng/mL (75 - 250 nmol/L) Toxicity >100 ng/mL (>250 nmol/L) Serum or plasma albumin melanie urement (mass/volume)on 01-17-2022 Albumin [Mass/Vol] 3.5 g/dL 3.2-5.0 [facility] Work Phone: [phone] Serum or plasma albumin/glob ulin mass ratioon 01-17-2022 Albumin/Globulin [Mass ratio] 1.0 {ratio} 0.9-2.4 [facility] Work Phone: Serum or plasma calcium melanie urement (mass/volume)on 01-17-2022 Calcium [Mass/Vol] 8.9 mg/dL 8.5-10.1 [facility] Work Phone: Serum or plasma cholesterol in HDL measurement (mass/volume)on 01-17-2022 Cholesterol in HDL [Mass/Vol] 50 mg/dL [facility] Work Phone: Comment on above: The drugs N-Acetylcy steine and Metamizole may falsely depress this assay. Reference Range HDL <40 mg/dL Low HDL Cholesterol HDL >or= 60 mg/dL High HDL Cholesterol Serum or plasma cholesterol in VLDL measurement (mass/volume)on 01-17-2022 Cholesterol in VLDL [Mass/Vol] 23 mg/dL 5-40 [facility] Work Phone: Serum or plasma creatinine m easurement (mass/volume)on 01-17-2022 Creatinine [Mass/Vol] 1.31 mg/dL 0.70-1.30 [facility] Work Phone: Comment on above: The validity of the calculated GFR & GFRAA in patients over 70 years has not been determined. Clinical correlation is essential. Serum or plasma low density lipoprotein (LDL) cholesterol measurement (mass/volume)on 01-17-2022 Cholesterol in LDL [Mass/Vol] 50 mg/dL 0-130 [facility] Work Phone: Serum or plasma urea nitroge n measurement (mass/volume)on 01-17-2022 Urea nitrogen [Mass/Vol] 24 mg/dL 7-18 [facility] Work Phone: [phone] Thin prep Papanicolaou smear with manual screeningon 01-17-2022 Thin prep Papanicolaou smear with manual screening 53.5 mg/L NO RANGE EST. [facility] Work Phone: [phone] Thin prep Papanicolaou smear with manual screening 22 U/L 15-37 [facility] Work Phone: Thin prep Papanicolaou smear with manual screening 7 5-15 [facility] Work Phone: Urine creatinine measurement (mass/volume)on 01-17-2022 Creatinine (U) [Mass/Vol] 76.40 mg/dL NO RANGE EST. [facility] Work Phone: Vital Signs Date Time Vital Sign Value Performing Clinician Fort[place] aden 01-22-2025 15:28-0400 Body height 170.[address] Kacey Navarro MD Work Phone: [facility] 01-22-2025 15:28-0400 Body mass index (BMI) [Ratio] 43.7 kg/m2 Dr. Kacey Navarro MD Work Phone: [facility] 01-22-2025 15:28-0400 Body weight 126.[address] Kacey Navarro MD Work Phone: [facility] 01-22-2025 15:28-0400 Diastolic blood pressure 75 mm[Hg] Dr. Kacey Navarro MD Work Phone: [facility] 01-22-2025 15:28-0400 Heart rate 85 /min Dr. Kacey Navarro MD Work Phone: [facility] 01-22-2025 15:28-0400 SaO2% (BldA) [Mass fraction] 93 % Dr. Kacey Navarro MD Work Phone: [facility] 01-22-2025 15:28-0400 Systolic blood pressure 120 mm[Hg] Dr. Kacey Navarro MD Work Phone: [facility] 12-25-2024 21:14-0400 Body temperature 97.4 [degF] Dr. Kacey Navarro MD Work Phone: [facility] 12-25-2024 21:14-0400 Diastolic blood pressure 80 mm[Hg] Dr. Kacey Navarro MD Work Phone: [facility] 12-25-2024 21:14-0400 Heart rate 75 /min Dr. Kacey Navarro MD Work Phone: [facility] 12-25-2024 21:14-0400 Inhaled oxygen flow rate 8 L/min Dr. Kacey Navarro MD Work Phone: [facility] 12-25-2024 21:14-0400 Respiratory rate 14 /min Dr. Kacey Navarro MD Work Phone: [facility] 12-25-2024 21:14-0400 SaO2% (BldA) [Mass fraction] 99 % Dr. Kacey Navarro MD Work Phone: [phone] [place] [address] 12-25-2024 21:14-0400 Systolic blood pressure 138 mm[Hg] Dr. Kacey Navarro MD Work Phone: [phone] [place] [address] 12-25-2024 14:16-0400 Body temperature 97.2 [degF] Dr. Kacey Navarro MD Work Phone: [phone] [place] [address] 12-25-2024 14:16-0400 Diastolic blood pressure 75 mm[Hg] Dr. Kacey Navarro MD Work Phone: [phone] [place] [address] 12-25-2024 14:16-0400 Heart rate 85 /min Dr. Kacey Navarro MD Work Phone: [phone] [place] [address] 12-25-2024 14:16-0400 Respiratory rate 16 /min Dr. Kacey Navarro MD Work Phone: [facility] 12-25-2024 14:16-0400 SaO2% (BldA) [Mass fraction] 98 % Dr. Kacey Navarro MD Work Phone: [facility] 12-25-2024 14:16-0400 Systolic blood pressure 141 mm[Hg] Dr. Kacey Navarro MD Work Phone: [phone] [place] [address] 12-25-2024 13:15-0400 Inhaled oxygen flow rate 8 L/min Dr. Kacey Navarro MD Work Phone: [phone] [place] [address] 12-25-2024 08:29-0400 Body height 170.[address] Kacey Navarro MD Work Phone: [phone] [place] [address] 12-25-2024 08:29-0400 Body mass index (BMI) [Ratio] 42.7 kg/m2 Dr. Kacey Navarro MD Work Phone: [phone] [place] [address] 12-25-2024 08:29-0400 Body weight [address] Kacey Navarro MD Work Phone: [phone] [place] [address] 10-15-2023 15:14-0500 Body height 167.[address] Kacey Navarro Work Phone: [phone] [address] 10-15-2023 15:14-0500 Body mass index (BMI) [Ratio] 45 kg/m2 Dr. Kacey Navarro Work Phone: [phone] [place] [address] 10-15-2023 15:14-0500 Body temperature 98.6 [degF] Dr. Kacey Navarro Work Phone: [phone] [address] 10-15-2023 15:14-0500 Body weight 126.[address] Kacey Navarro Work Phone: [phone] [place] [address] 10-15-2023 15:14-0500 Diastolic blood pressure 68 mm[Hg] Dr. Kacey Navarro Work Phone: [phone] [address] 10-15-2023 15:14-0500 Heart rate 99 /min Dr. Kacey Navarro Work Phone: [phone] [place] [address] 10-15-2023 15:14-0500 SaO2% (BldA) [Mass fraction] 95 % Dr. Kacey Navarro Work Phone: [phone] [place] [address] 10-15-2023 15:14-0500 Systolic blood pressure 114 mm[Hg] Dr. Kacey Navarro Work Phone: [phone] [address] 05-01-2023 14:44-0400 Body height 167.[address] De La Rosa Dm [facility] 05-01-2023 14:44-0400 Body mass index (BMI) [Ratio] 43.6 kg/m2 Dr. De La Rosa [facility] 05-01-2023 14:44-0400 Body temperature [facility].1 [facility]degF[facility]-01-[facility] 14:44-0400 Body weight 122.[address] Rj Chaidez [facility] 05-01-2023 14:44-0400 Diastolic blood pressure 78 mm[facility]Hg[facility] 14:44-0400 Heart rate 82 /min [facility]. De La Rosa [facility] 05-01-2023 14:44-0400 Respiratory rate 18 /[facility] 05-01-2023 14:44-0400 SaO2% (BldA) [Mass fraction] 96 % Dr. De La Rosa [facility] 05-01-2023 14:44-0400 Systolic blood pressure 132 mm[Hg] Dr. De La Rosa [facility] 01-15-2023 08:58-0400 Diastolic blood pressure 66 mm[Hg] Juan Guallpa MD Work Phone: [facility] 01-15-2023 08:58-0400 Heart rate 96 /min Juan Guallpa MD Work Phone: [facility] 01-15-2023 08:58-0400 Respiratory rate 16 /min Juan Guallpa MD Work Phone: [facility] 01-15-2023 08:58-0400 SaO2% (BldA) [Mass fraction] 94 % Juan Guallpa MD Work Phone: [facility] 01-15-2023 08:58-0400 Systolic blood pressure 116 mm[Hg] Juan Guallpa MD Work Phone: [facility] 01-15-2023 07:48-0400 Body temperature 98.2 [degF] Juan Guallpa MD Work Phone: [facility] 01-15-2023 07:48-0400 Body weight 118.4 kg Juan Guallpa MD Work Phone: [facility] 01-02-2023 15:04-0400 Body height 167.[address] Rj Chaidez Work Phone: [facility] 01-02-2023 15:04-0400 Body mass index (BMI) [Ratio] 44.2 kg/m2 Dr. Rj Chaidez Work Phone: [facility] 01-02-2023 15:04-0400 Body temperature 98.6 [degF] Dr. Rj Chaidez Work Phone: [facility] 01-02-2023 15:04-0400 Body weight 124.[address] Rj Chaidez Work Phone: [facility] 01-02-2023 15:04-0400 Diastolic blood pressure 80 mm[Hg] Dr. Rj Chaidez Work Phone: [facility] 01-02-2023 15:04-0400 Heart rate 90 /min Dr. Rj Chaidez Work Phone: [facility] 01-02-2023 15:04-0400 Respiratory rate 16 /min Dr. Rj Chaidez Work Phone: [facility] 01-02-2023 15:04-0400 SaO2% (BldA) [Mass fraction] 94 % Dr. Rj Chaidez Work Phone: [facility] 01-02-2023 15:04-0400 Systolic blood pressure 131 mm[Hg] Dr. Rj Chaidez Work Phone: [facility] 10-17-2022 15:39-0500 Body height 167.6 cm Sandy Swathi PA-C Work Phone: [facility] 10-17-2022 15:39-0500 Body temperature 98.6 [degF] Sandy Swathi PA-C Work Phone: [facility] 10-17-2022 15:39-0500 Body weight 118.39 kg Sandy [place] PA-C Work Phone: [facility] 10-17-2022 15:39-0500 Diastolic blood pressure 82 mm[Hg] Sandy [place] PA-C Work Phone: [facility] 10-17-2022 15:39-0500 Heart rate 103 /min Sandy Swathi PA-C Work Phone: [facility] 10-17-2022 15:39-0500 SaO2% (BldA) [Mass fraction] 100 % Sandy Briggsf PA-C Work Phone: [facility] 10-17-2022 15:39-0500 Systolic blood pressure 126 mm[Hg] Sandy Briggsf PA-C Work Phone: [facility] 10-09-2022 15:02-0500 Body mass index (BMI) [Ratio] 42.6 kg/m2 Dr. Rj Chaidez Work Phone: [facility] 10-09-2022 15:02-0500 Body temperature 97.2 [degF] Dr. Rj Chaidez Work Phone: [facility] 10-09-2022 15:02-0500 Body weight 119.[address] Rj Chaidez Work Phone: [facility] 10-09-2022 15:02-0500 Diastolic blood pressure 76 mm[Hg] Dr. Rj Chaidez Work Phone: [facility] 10-09-2022 15:02-0500 Heart rate 76 /min Dr. Rj Chaidez Work Phone: [facility] 10-09-2022 15:02-0500 Respiratory rate 18 /min Dr. Rj Chaidez Work Phone: [facility] 10-09-2022 15:02-0500 SaO2% (BldA) [Mass fraction] 91 % Dr. Rj Chaidez Work Phone: [facility] 10-09-2022 15:02-0500 Systolic blood pressure 125 mm[Hg] Dr. Rj Chaidez Work Phone: [facility] 07-04-2022 15:17-0400 Body height 167.[address] Rj Chaidez Work Phone: [facility] Work Phone: 07-04-2022 15:17-0400 Body mass index (BMI) [Ratio] 41.6 kg/m2 Dr. Rj Chaidez Work Phone: [facility] Work Phone: 07-04-2022 15:17-0400 Body temperature 97 [degF] Dr. Rj Chaidez Work Phone: [facility] Work Phone: 07-04-2022 15:17-0400 Body weight 117.[address] Rj Chaidez Work Phone: [facility] Work Phone: 07-04-2022 15:17-0400 Diastolic blood pressure 79 mm[Hg] Dr. Rj Chaidez Work Phone: [facility] Work Phone: 07-04-2022 15:17-0400 Heart rate 79 /min Dr. Rj Chaidez Work Phone: [facility] Work Phone: 07-04-2022 15:17-0400 Respiratory rate 18 /min Dr. Rj Chaidez Work Phone: [facility] Work Phone: 07-04-2022 15:17-0400 SaO2% (BldA) [Mass fraction] 94 % Dr. Rj Chaidez Work Phone: [facility] Work Phone: 07-04-2022 15:17-0400 Systolic blood pressure 127 mm[Hg] Dr. Rj Chaidez Work Phone: [facility] Work Phone: 05-09-2022 15:17-0400 Body mass index (BMI) [Ratio] 41.3 kg/m2 Dr. Rj Chaidez Work Phone: [facility] Work Phone: 05-09-2022 15:17-0400 Body temperature 97.1 [degF] Dr. Rj Chaidez Work Phone: [facility] Work Phone: 05-09-2022 15:17-0400 Body weight 116.[address] Rj Chaidez Work Phone: [facility] Work Phone: 05-09-2022 15:17-0400 Diastolic blood pressure 81 mm[Hg] Dr. Rj Chaidez Work Phone: [facility] Work Phone: 05-09-2022 15:17-0400 Heart rate 96 /min Dr. Rj Chaidez Work Phone: [facility] Work Phone: 05-09-2022 15:17-0400 Respiratory rate 18 /min Dr. Rj Chaidez Work Phone: [facility] Work Phone: 05-09-2022 15:17-0400 SaO2% (BldA) [Mass fraction] 93 % Dr. Rj Chaidez Work Phone: [facility] Work Phone: 05-09-2022 15:17-0400 Systolic blood pressure 172 mm[Hg] Dr. Rj Chaidez Work Phone: [facility] Work Phone: 01-17-2022 15:28-0400 Body height 167.[address] Rj Chaidez Work Phone: [facility] Work Phone: 01-17-2022 15:28-0400 Body mass index (BMI) [Ratio] 41.2 kg/m2 Dr. Rj Chaidez Work Phone: [facility] Work Phone: 01-17-2022 15:28-0400 Body temperature 96.7 [degF] Dr. Rj Chaidez Work Phone: [facility] Work Phone: 01-17-2022 15:28-0400 Body weight 115.[address] Rj Chaidez Work Phone: [facility] Work Phone: 01-17-2022 15:28-0400 Diastolic blood pressure 82 mm[Hg] Dr. Rj Chaidez Work Phone: [facility] Work Phone: 01-17-2022 15:28-0400 Heart rate 84 /min Dr. Rj Chaidez Work Phone: [facility] Work Phone: 01-17-2022 15:28-0400 Respiratory rate 18 /min Dr. Rj Chaidez Work Phone: [facility] Work Phone: 01-17-2022 15:28-0400 SaO2% (BldA) [Mass fraction] 98 % Dr. Rj Chaidez Work Phone: [facility] Work Phone: 01-17-2022 15:28-0400 Systolic blood pressure 130 mm[Hg] Dr. Rj Chaidez Work Phone: [facility] Work Phone: Encounters Encounter Date Encounter Type Care Provider Facility Start: 06-15-2025 ambulatory Kacey Solo y:[facility] Start: 05-26-2025 ambulatory Kacey Navarro Facilit y:[facility] Start: 05-19-2025 ambulatory Kacey Navarro Facilit y:[facility] Start: 02-18-2025 ambulatory Kacey Navarro Facilit y:[facility] Start: 01-22-2025 End: 01-22-[address] Chris Booker MD -[facility] Work Phone: Start: 01-22-2025 End: 01-22-[address] Kacey Navarro MD Work Phone: [facility] Work Phone: Start: 01-13-2025 End: 01-13-[address] Kacey Navarro MD Work Phone: [facility] Work Phone: Start: 01-13-2025 End: 01-13-[address] Kacey Navarro MD -Laboratory, [facility] Start: 01-13-2025 End: 01-13-2025 ambulatory Kacey Navarro Facility:[facility] Start: 12-25-2024 End: 12-25-2024 Admission to same day surgery center Dr. Justo Terry -[facility] Start: 12-25-2024 End: 12-25-[address] Kacey Navarro MD Work Phone: [facility] Work Phone: Start: 12-18-2024 End: 12-18-2024 ambulatory Prakash Ortega Facility:[facility] Start: 12-18-2024 End: 12-18-2024 Non-patient / Non-visit Dr. Prakash Ortega MD -[facility] Work Phone: Start: 11-24-2024 ambulatory JACQUIE ROMERO PA-C Fac lity:[facility] Start: 11-19-2024 End: 11-19-2024 ambulatory JACQUIE ROMERO PA-C Facility:[facility] Start: 11-18-2024 End: 11-18-[address] Kacey Navarro MD Work Phone: [facility] Work Phone: Start: 11-18-2024 End: 11-18-[address] Mauricio Morales MD -Laboratory Work Phone: Start: 11-18-2024 End: 11-18-2024 ambulatory Kacey Navarro Facility:[facility] Start: 10-08-2024 End: 10-08-[address] Kacey Navarro MD -Laboratory, [facility] Start: 10-08-2024 End: 10-08-2024 ambulatory Kacey Navarro Facility:[facility] Start: 07-22-2024 ambulatory Kacey Navarro Facilit y:[facility] Start: 07-15-2024 End: 07-15-2024 ambulatory Chris Jhony Facility:[facility] Start: 07-15-2024 End: 07-15-2024 ambulatory [facility] Facility:[facility] Start: 05-26-2024 ambulatory Sang Cason Facility: [facility] Start: 10-15-2023 End: 10-15-[address] Kacey Navarro Work Phone: [facility] Endocrinology Work Phone: Start: 09-27-2023 End: 09-27-2023 ambulatory [facility] Work Phone: Start: 09-27-2023 End: 09-27-2023 Patient encounter procedure [facility] Start: 08-22-2023 End: 08-22-2023 ambulatory [facility] Work Phone: Start: 08-22-2023 End: 08-22-2023 Patient encounter procedure [facility]-Radiology, [facility] Work Phone: Start: 08-07-2023 End: 08-07-[address] Rj Chaidez [facility] Work Phone: Start: 08-07-2023 End: 08-07-[address] Rj Chaidez [facility] Work Phone: Start: 05-16-2023 End: 05-16-[address] Rj Chaidez [facility] Work Phone: Start: 05-16-2023 End: 05-16-[address] Rj Chaidez [facility] Start: 05-15-[address] Rj rios [facility]-Physical Therapy Work Phone: Start: 05-01-2023 End: 05-01-[address] Rj Chaidez [facility] Endocrinology Work Phone: Start: 03-29-2023 End: 03-29-[address] Rj Chaidez [facility]-Nuclear Medicine, [facility] Work Phone: Start: 02-13-2023 End: 02-14-2023 ambulatory NIK LEGER Facility:[id number] Start: 02-13-2023 End: 02-13-2023 Subsequent [facility] Start: 01-31-2023 End: 02-01-2023 ambulatory RJ CHAIDEZ Facility:[id number] Start: 01-31-2023 Encounter for other preprocedural examination [facility] Start: 01-23-2023 Non-patient / Non-visit Dr. Db Chaidez Work Phone: [facility] Start: 01-23-[address] Rj Chaidez Work Phone: [facility]-Cardiovascular Services Start: 01-18-2023 End: 01-18-[address] Rj Chaidez Work Phone: [facility] Work Phone: Start: 01-18-2023 End: 01-18-[address] Rj Chaidez Work Phone: [facility] Start: 01-15-2023 End: 01-15-2023 ambulatory JUAN GUALLPA Facility:[facility] Start: 01-15-2023 End: 01-15-2023 Subsequent hospital visit by physician Juan Guallpa MD Work Phone: Ambulatory Surgery Comment on above: Personal history of colonic polyps [Z86.010] Start: 01-12-2023 End: 01-13-[address] NIK LEGER DO Facility:[facility] Start: 01-08-2023 End: [address] NIK LEGER DO Facility:[facility] Start: 01-08-2023 End: 01-08-[address] [facility] Start: 01-02-2023 End: 01-02-[address] Rj Chaidez Work Phone: [facility] Endocrinology Start: 12-28-2022 Telephone encounter Juan hses MD Work Phone: General Surgery Comment on above: Patient Update Start: 11-24-2022 Telephone encounter Juan hess MD Work Phone: Ambulatory Surgery Comment on above: Procedure (Cancellat ion ) Start: 11-09-2022 End: 11-10-2022 ambulatory RJ CHAIDEZ MD Facility: Start: 11-09-2022 End: 11-09-2022 Patient encounter procedure BEREKET MENDEZ MD [facility] Start: 10-17-2022 End: 10-17-2022 ambulatory VLAD KAUR Facility:[facility] Start: 10-17-2022 End: 10-17-2022 Patient encounter procedure Sandy Kessler PA-C Work Phone: General Surgery Comment on above: Encounter for screen ing for malignant neoplasm of colon (Primary Dx); Personal history of colonic polyps Start: 10-09-2022 End: 10-09-[address] Rj Chaidez Work Phone: [facility] End[facility]inology Start: 08-31-2022 End: 08-31-[address] Rj Chaidez Work Phone: [facility] Work Phone: Start: 08-31-2022 End: 08-31-[address] Rj Chaidez Work Phone: [facility]-Physical Therapy Start: 07-24-2022 End: 07-24-[address] Rj Chaidez Work Phone: [facility] Work Phone: Start: 07-24-2022 End: 07-24-[address] Rj [facility] Start: 07-04-2022 End: 07-04-[address] Rj Chaidez Work Phone: [facility]inology Start: 05-09-2022 End: 05-09-[address] Rj Chaidez Work Phone: [facility] Start: 04-18-2022 End: 04-19-2022 ambulatory RJ CHAIDEZ MD Facility:[facility] Start: 04-18-2022 End: 04-18-2022 Patient encounter procedure KACEY AUSTIN MD [facility] Start: 03-14-2022 End: 03-15-2022 ambulatory RJ CHAIDEZ MD Facility:[facility] Start: 02-13-2022 End: 02-14-2022 ambulatory RJ CHAIDEZ MD Facility:[facility] Start: 02-13-2022 End: 02-13-2022 Patient encounter procedure EDIE CHRIS DO [facility] Start: 01-17-2022 End: 01-17-[address] Rj Chaidez Work Phone: [facility]inology Start: 08-08-2021 End: 08-08-2021 Patient encounter procedure BHAVANI SCHULTE [facility] Procedures Date Procedure Procedure Detail Performing Clinician Start: 01-13-[address] Kacey Navarro MD Work Phone: Start: 01-13-2025 Vitamin D, 25-hydrox y measurement Dr. Kacey Navarro MD Work Phone: Comment on above: Vitamin D StatusDefi ciency: <20 ng/mL (50nmol/L)Insufficiency: 20-30 ng/mL (50-75 nmol/L)Sufficiency: 30-100 ng/mL (75-250 nmol/L)Toxicity: >100 ng/mL (>250 nmol/L) Start: 12-25-2024 Repair of musculoten dinous cuff of shoulder Dr. Kacey Navarro MD Work Phone: Start: 11-18-2024 Free prostate specif ic antigen level Dr. Kacey Navarro MD Work Phone: Comment on above: [employer] methodol [employer]gy. Start: 11-18-2024 Prostate specific an tigen measurement Dr. Kacey Navarro MD Work Phone: Comment on above: [employer]CL[employer] methodol ogy.According to the [place] [employer], Serum PSAshould decrease and remain at undetectable levels afterradical prostatectomy. The AUA defines biochemicalrecurrence as an initial PSA value 0.200 ng/mL or greaterfollowed by a subsequent confirmatory PSA value 0.200 ng/mLor greater. Values obtained with different assay methods orkits cannot be used interchangeably. Results cannot beinterpreted as absolute evidence of the presence or absenceof malignant disease. Start: 10-08-2024 Prostate specific an tigen measurement Dr. Kacey Navarro MD Work Phone: Comment on above: This test was perfor med using the TPSA assay method for the[employer] chemistry system. Values obtained with differentassay methods cannot be used interchangably.When changing PSA assays in the course of monitoring apatient, additional sequential testing should be carriedout to confirm baseline values. Start: 08-22-2023 Plain X-ray of shoulder Start: 08-22-2023 X-ray of cervical spine Start: 08-07-2023 Radiologic examination of knee Dr. Rj Chaidez Start: 03-29-2023 Radionuclide gastric emptying study Dr. Rj Chaidez Start: 01-31-2023 Antibody screen RJ MONTELONGO Comment on above: Order Comment: Speci men Type: BLOOD SPECIMEN Ordering Facility: [facility] Address: [address] [place] [id number] Performed By: #### T [id number] #### [facility] CLIA [id number] [address] [id number] [place] Start: 01-23-2023 Cardiovascular stres s test using pharmacologic stress agent Dr. Rj Chaidez Work Phone: Start: 01-15-2023 Colonoscopy flx dx w /collj spec when pfrmd Sandy OVIEDO-C Work Phone: Start: 01-15-2023 Colonoscopy Juan florence MD Work Phone: Start: 11-04-2019 Colonoscopy Sandy [facility] Work Phone: Start: 02-09-2016 Arthroscopy of knee with meniscus repair BHAVANIGRAZYNA SCHULTE Comment on above: Left knee- Dr. Janelle palacio Start: 05-11-2013 Decompression of median nerve BHAVANI SCHULTE Comment on above: Dr[facility] Plan of Treatment Date Care Activity Detail Author Start: 01-16-2028 Colonoscopy Colonoscopy [facility] Start: 01-16-2028 Colorectal Cancer Screening Colorectal Cancer Screening [facility] Start: 01-15-2026 Colonoscopy COLONOSCOPY [facility] Start: 01-15-2026 COLORECTAL CANCER SCREENING COLORECTAL CANCER SCREENING [facility] Start: 12-25-2024 Anes arthrs humeral h/n strnclav & shoulder nos ANESTH SURGERY OF SHOULDER [facility] Start: 12-25-2024 Arthroscopy shoulder biceps tenodesis [facility] BICP TENODSIS [facility] Start: 12-25-2024 Arthroscopy shoulder rotator cuff repair [facility] [id number] CUF RPR [facility] Start: 12-25-2024 Application of ice collar, cap or bag [facility] Start: 12-25-2024 Catheterization of vein [facility] Start: 12-25-2024 Following clinical pathway protocol [facility] Start: 12-25-2024 Patient discharge [facility] Start: 12-25-2024 Procedure discontinued [facility] Start: 12-25-2024 Taking patient vital signs [facility] Start: 12-25-2024 Vital signs measurements [facility] Start: 12-25-2024 [facility] Start: 12-25-2024 Medication education [facility] Start: 08-03-2023 Hemoglobin A1c/Hemoglobin.total in Blood HBA1C [facility] Start: 05-11-2023 Covid-19 Vaccine ( season) Covid-19 Vaccine () [facility] Start: 05-11-2023 Influenza vaccination Influenza Vaccine (#1) [facility] Start: 01-23-2023 US scan of thyroid Thyroid [facility] Start: 01-23-2023 US Thyroid gland [facility] Start: 11-04-2022 Colonoscopy COLONOSCOPY [facility] Start: 11-04-2022 COLORECTAL CANCER SCREENING COLORECTAL CANCER SCREENING [facility] Start: 09-10-2022 DEPRESSION ASSESSMENT DEPRESSION ASSESSMENT [facility] Start: 05-09-2022 Patient referral [facility] Work Phone: Start: 11-02-2021 COVID-19 VACCINE (4 - Booster for Moderna series) COVID-19 VACCINE (4 - Booster for Moderna series) [facility] Start: 2020 Hepatitis B Vaccine (1 of 3 - Risk 3-dose series) Hepatitis B Vaccine (1 of 3 - Risk 3-dose series) [facility] Start: 2020 RSV Vaccine (1 - 1-dose 60+ series) RSV Vaccine (1 - 1-dose 60+ series) [facility] Start: 09-15-2016 3 comp foot exam completed [facility]AB[facility] FOOT [facility] Start: 03-19-2016 Hepatitis B screening URINE ALBUMIN:CREATININE RATIO [facility] Start: 03-19-2016 Hepatitis B surface antibody level LDL CHOLESTEROL [facility] Start: 03-15-2016 Hemoglobin A1c/Hemoglobin.total in Blood HBA1C [facility] Start: 01-08-2016 Hepatitis C antibody, confirmatory test DILATED RETINAL EXAM [facility] Start: 08-31-2015 PROSTATE CANCER SCREENING DISCUSSION PROSTATE CANCER SCREENING DISCUSSION [facility] Start: 03-17-2010 PNEUMOCOCCAL (2 - PCV) PNEUMOCOCCAL (2 - PCV) [facility] Start: 03-17-2010 Pneumococcal vaccination Pneumococcal Vaccine (2 - PCV) [facility] Start: 01-08-2010 SHINGRIX VACCINE (1 of 2) SHINGRIX VACCINE (1 of 2) [facility] Start: 01-08-2005 COLOGUARD (FIT-DNA) COLOGUARD (FIT-DNA) [facility] Start: 01-08-[address] COLONOGRAPHY [facility] Start: 01-08-2005 FECAL OCCULT BLOOD FECAL OCCULT BLOOD [facility] Start: 01-08-2005 SIGMOIDOSCOPY SIGMOIDOSCOPY [facility] Start: 01-08-1979 [facility] Start: 01-08-1978 ANNUAL PCP TEAM CHRONIC DISEASE VISIT ANNUAL PCP TEAM CHRONIC DISEASE VISIT [facility] Start: 01-08-1978 BP CONTROLLED (<130/80) BP CONTROLLED (<130/80) [facility] Start: 01-08-1978 HEPATITIS C SCREENING HEPATITIS C SCREENING [facility] Start: 01-08-1978 HIV SCREENING HIV SCREENING [facility] Patient referral [facility] Work Phone: [facility] Immunizations Immunization Date Immunization Notes Care Provider Janis [facility] 07-24-2022 influenza virus vacc ine, unspecified formulation Juan Guallpa MD Work Phone: [facility] 12-03-2020 COVID-19, mRNA, LNP- S, PF, 100 mcg/ 0.5 mL dose; Translations: [Moderna COVID-19 Vaccine] BHAVANI LOSTIANA [facility] 11-05-2020 COVID-19, mRNA, LNP- S, PF, 100 mcg/ 0.5 mL dose; Translations: [Moderna COVID-19 Vaccine] BHAVANI LOSTIANA [facility] 03-17-2009 pneumococcal polysaccharide vaccine, 23 valent Sandy Kessler PA-C Work Phone: [facility] Work Phone: 07-18-2006 influenza virus vacc ine, unspecified formulation Sandy Kessler PA-C Work Phone: [facility] Work Phone: Payers Date Payer Category Payer Private Health Insurance [id number] 2024 Unknown [id number] 2024 Unknown [id number] 2024 Self-pay [id number] 2019 Unknown [id number] 2006 Unknown [id number] 1960 Unknown [id number] 2.16.8 [id number] 1960 Unknown [id number] 2.16.8 40.1.726679.3.579.2.627 1960 Unknown [id number] 2.16.8 40.1.659484.3.579.2.627 1960 Unknown [id number] 2.16.8 40.1.378119.3.579.2.627 1960 Unknown [id number] 2.16.8 40.1.266184.3.579.2.627 1960 Unknown [id number] 2.16.8 40.1.206716.3.579.2.627 1960 Unknown [id number] 2.16.8 40.1.665123.3.579.2.627 1960 Unknown [id number] 2.16. 840.1.144129.3.579.2.627 1960 Unknown [id number] 2.16.8 40.1.716155.3.579.2.627 Unknown [id number] 2.16.8 40.1.486928.3.579.2.462 Unknown [id number] 2.16.8 40.1.877524.3.579.2.462 Unknown [id number] 2.16.8 40.1.613799.3.579.2.462 Unknown [id number] 2.16.8 40.1.660222.3.579.2.462 Unknown [id number] 2.16.8 40.1.380563.3.579.2.462 Unknown [id number] 2.16.8 40.1.465156.3.579.2.462 Unknown [id number] 2.16.8 40.1.775038.3.579.2.462 Unknown [id number] 2.16.8 40.1.933181.3.579.2.462 Unknown [id number] 2.16.8 40.1.022313.3.579.2.462 Unknown [id number] 2.16.8 40.1.932840.3.579.2.462 Unknown [id number] 2.16.8 40.1.122956.3.579.2.462 Unknown [id number] 2.16.8 40.1.445891.3.579.2.462 Unknown [id number] 2.16.8 40.1.458534.3.579.2.462 Unknown [id number] 2.16.8 40.1.976654.3.579.2.462 Social History Date Type Detail Facility Start: 07-23-2019 End: 12-15-2024 Never smoked tobacco (finding) [facility] Sex Assigned At [facility] Start: 01-17-2022 End: 10-15-2023 Tobacco smoking status TXIS Unknown if ever smoked [facility] Start: 1960 Sex Assigned At Male [facility] Start: 10-28-2012 End: 01-30-2023 Tobacco use and exposure Smokeless tobacco non-user [facility] Start: 10-17-2022 End: 01-15-2023 Alcohol intake Current non-drinker of alcohol (finding) [facility] Start: 1960 Sex Assigned At Not on file [facility] History of tobacco use Passive smoker [place] Start: 01-31-2023 Alcohol intake Lifetime non-d laci (finding) [facility] Start: 10-17-2022 End: 01-15-2023 History of Social function [facility] Start: 10-17-2022 End: 01-15-2023 Tobacco use panel [facility] National Score (1-100), lower number is lower risk 85 [facility] Start: 11-26-2024 End: 12-25-2024 Sex Male (finding) [facility] Medical Equipment Procedure Code Equipment Code Equipment Origin al Text Equipment Identifier Dates Arthroscopy, shoulder, with rotator cuff repair SWIVELOC,KLESS 4.75 SELF PUNCH FDA Start: 12-25-2024 Arthroscopy, shoulder, with rotator cuff repair SWIVELOC,KLESS 4.75 SELF PUNCH FDA Start: 12-25-2024 Arthroscopy, shoulder, with rotator cuff repair SWIVELOC,KLESS 4.75 SELF PUNCH FDA Start: 12-25-2024 Arthroscopy, shoulder, with rotator cuff repair Tendon/ligament bone anchor, non-bioabsorbable ()[id number] FDA Start: 12-25-2024 Arthroscopy, shoulder, with rotator cuff repair Tendon/ligament bone anchor, non-bioabsorbable ()[id number] FDA Start: 12-25-2024 Arthroscopy, shoulder, with rotator cuff repair SWIVELOC,KLESS 4.75 SELF PUNCH FDA Start: 12-25-2024 Arthroscopy, shoulder, with rotator cuff repair SWIVELOC,KLESS 4.75 SELF PUNCH FDA Start: 12-25-2024 Arthroscopy, shoulder, with rotator cuff repair SWIVELOC,KLESS 4.75 SELF PUNCH FDA Start: 12-25-2024 Pen Needle, Diabetic (Comfort Ez Pen [place]) 31 gauge x 5/16 needle Start: 08-09-2021 Pen Needle, Diabetic (Comfort Ez Pen [place]) 31 gauge x 5/16 needle Start: 11-29-2020 End: 12-07-2020 Pen Needle, Diabetic (Comfort Ez Pen [place]) 31 gauge x 5/16 needle Start: 12-07-2020 End: 08-09-2021 See Instructions , BD UF 8mm 31 G (short) qs 1 month supply, # 200 EA, 3 Refill(s), Pharmacy: [facility], 167, cm, 11/04/19 15:51:00 EST, Height, 116, kg, 11/04/19 15:51:00 EST, Dosing Weight Start: 11-04-2019 See Instructions , BD UF 8mm 31 G (short) qs 1 month supply, # 200 EA, 3 Refill(s), Pharmacy: [facility], 167, cm, 11/04/19 15:51:00 EST, Height, 116, kg, 11/04/19 15:51:00 EST, Dosing Weight Start: 11-04-2019 Pen Needle, Diabetic (Comfort Ez Pen [place]) 31 gauge x 5/16 needle Start: 08-09-2021 Pen Needle, Diabetic (Comfort Ez Pen [place]) 31 gauge x 5/16 needle Start: 11-29-2020 End: 12-07-2020 Pen Needle, Diabetic (Comfort Ez Pen [place]) 31 gauge x 5/16 needle Start: 12-07-2020 End: 08-09-2021 Pen Needle, Diabetic (Comfort Ez Pen [place]) 31 gauge x 5/16 needle Start: 08-09-2021 Pen Needle, Diabetic (Comfort Ez Pen [place]) 31 gauge x 5/16 needle Start: 11-29-2020 End: 12-07-2020 Pen Needle, Diabetic (Comfort Ez Pen [place]) 31 gauge x 5/16 needle Start: 12-07-2020 End: 08-09-2021 Start: 09-13-2015 End: 01-30-2023 Comment on above: before meals and at bedtime. accu check test strips Use as instructed 3-4 times daily. For insulin injectio n 3x daily. Two daily for insuli n injections. See Instructions , BD UF 8mm 31 G (short) qs 1 month supply, # 200 EA, 3 Refill(s), Pharmacy: [facility], 167, cm, 11/04/19 15:51:00 EST, Height, 116, kg, 02/25/20 15:51:00 EST, Dosing Weight Start: 11-04-2019 See Instructions , BD UF 8mm 31 G (short) qs 1 month supply, # 200 EA, 3 Refill(s), Pharmacy: [facility], 167, cm, 11/04/19 15:51:00 EST, Height, 116, kg, 11/04/19 15:51:00 EST, Dosing Weight Start: 11-04-2019 See Instructions , BD UF 8mm 31 G (short) qs 1 month supply, # 200 EA, 3 Refill(s), Pharmacy: [facility], 167, cm, 11/04/19 15:51:00 EST, Height, 116, kg, 11/04/19 15:51:00 EST, Dosing Weight Start: 11-04-2019 Pen Needle, Diabetic (Comfort Ez Pen [place]) 31 gauge x 5/16 needle Start: 08-09-2021 Pen Needle, Diabetic (Comfort Ez Pen [place]) 31 gauge x 5/16 needle Start: 11-29-2020 End: 12-07-2020 Pen Needle, Diabetic (Comfort Ez Pen [place]) 31 gauge x 5/16 needle Start: 12-07-2020 End: 08-09-2021 Bone Vivigen Formable 10cc - [id number] FDA Start: 02-13-2023 Fibergraft Bg Matrix Graft Substitute Synthetic Med 6.25cc [id number] Start: 02-13-2023 Prime Dbm Hd [id number] Start: 02-13-2023 Mariano Expedium 5.5 mm Titanium 45mm Spinal Prebent Line Nonsterile - [id number] Start: 02-13-2023 Expedium 5.50 Ti X25 Set Screw [id number] Start: 02-13-2023 Pen Needle, Diabetic (Comfort Ez Pen [place]) 31 gauge x 5/16 needle Start: 05-01-2023 Pen Needle, Diabetic (Comfort Ez Pen [place]) 31 gauge x 5/16 needle Start: 08-09-2021 End: 05-01-2023 Pen Needle, Diabetic (Comfort Ez Pen [place]) 31 gauge x 5/16 needle Start: 11-29-2020 End: 12-07-2020 Pen Needle, Diabetic (Comfort Ez Pen [place]) 31 gauge x 5/16 needle Start: 12-07-2020 End: 08-09-2021 Pen Needle, Diabetic (Comfort Ez Pen [place]) 31 gauge x 5/16 needle Start: 05-01-2023 Pen Needle, Diabetic (Comfort Ez Pen [place]) 31 gauge x 5/16 needle Start: 08-09-2021 End: 05-01-2023 Pen Needle, Diabetic (Comfort Ez Pen [place]) 31 gauge x 5/16 needle Start: 11-29-2020 End: 12-07-2020 Pen Needle, Diabetic (Comfort Ez Pen [place]) 31 gauge x 5/16 needle Start: 12-07-2020 End: 08-09-2021 Pen Needle, Diabetic (Comfort Ez Pen [place]) 31 gauge x 5/16 needle Start: 05-01-2023 Pen Needle, Diabetic (Comfort Ez Pen [place]) 31 gauge x 5/16 needle Start: 08-09-2021 End: 05-01-2023 Pen Needle, Diabetic (Comfort Ez Pen [place]) 31 gauge x 5/16 needle Start: 11-29-2020 End: 12-07-2020 Pen Needle, Diabetic (Comfort Ez Pen [place]) 31 gauge x 5/16 needle Start: 12-07-2020 End: 08-09-2021 Pen Needle, Diabetic (Comfort Ez Pen [place]) 31 gauge x 5/16 needle Start: 05-01-2023 Pen Needle, Diabetic (Comfort Ez Pen [place]) 31 gauge x 5/16 needle Start: 08-09-2021 End: 05-01-2023 Pen Needle, Diabetic (Comfort Ez Pen [place]) 31 gauge x 5/16 needle Start: 11-29-2020 End: 12-07-2020 Pen Needle, Diabetic (Comfort Ez Pen [place]) 31 gauge x 5/16 needle Start: 12-07-2020 End: 08-09-2021 Pen Needle, Diabetic (Comfort Ez Pen [place]) 31 gauge x 5/16 needle Start: 05-01-2023 Pen Needle, Diabetic (Comfort Ez [employer] [place]) 31 gauge x 5/16 needle Start: 08-09-2021 End: 05-01-2023 Pen Needle, Diabetic (Comfort [employer] [place]) 31 gauge x 5/16 needle Start: 11-29-2020 End: 12-07-2020 Pen Needle, Diabetic (Comfort Ez Pen [place]) 31 gauge x 5/16 needle Start: 12-07-2020 End: 08-09-2021 Pen Needle, Diabetic (Comfort Ez Pen [place]) 31 gauge x 5/16 needle Start: 05-01-2023 Pen Needle, Diabetic (Comfort Ez [employer] [place]) 31 gauge x 5/16 needle Start: 08-09-2021 End: 05-01-2023 Pen Needle, Diabetic (Comfort Ez [employer] [place]) 31 gauge x 5/16 needle Start: 11-29-2020 End: 12-07-2020 Pen Needle, Diabetic (Comfort Ez [employer] [place]) 31 gauge x 5/16 needle Start: 12-07-2020 End: 08-09-2021 Pen Needle, Diabetic (Comfort Ez Pen [place]) 31 gauge x 5/16 needle Start: 05-01-2023 Pen Needle, Diabetic (Comfort [employer] [place]) 31 gauge x 5/16 needle Start: 08-09-2021 End: 05-01-2023 Pen Needle, Diabetic (Comfort [employer] [place]) 31 gauge x 5/16 needle Start: 11-29-2020 End: 12-07-2020 Pen Needle, Diabetic (Comfort Ez Pen [place]) 31 gauge x 5/16 needle Start: 12-07-2020 End: 08-09-2021 Pen Needle, Diabetic (Comfort [employer] [place]) 31 gauge x 5/16 needle Start: 05-01-2023 Pen Needle, Diabetic (Comfort [employer] [place]) 31 gauge x 5/16 needle Start: 08-09-2021 End: 05-01-2023 Pen Needle, Diabetic (Comfort [employer] [place]) 31 gauge x 5/16 needle Start: 11-29-2020 End: 12-07-2020 Pen Needle, Diabetic (Comfort Ez Pen [place]) 31 gauge x 5/16 needle Start: 12-07-2020 End: 08-09-2021 Pen Needle, Diabetic (Comfort Ez Pen [place]) 31 gauge x 5/16 needle Start: 05-01-2023 Pen Needle, Diabetic (Comfort [employer] [place]) 31 gauge x 5/16 needle Start: 08-09-2021 End: 05-01-2023 Pen Needle, 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 (Comfort Ez [employer] [place]) 31 gauge x 5/16 needle Start: 11-29-2020 End: 12-07-2020 Pen Needle, Diabetic (Comfort Ez [employer] [place]) 31 gauge x 5/16 needle Start: 12-07-2020 End: 08-09-2021 Goals Date Patient Goal Desired Activity /State Mental Status Date Assessment Result Facility 12-25-2024 Cognitive function Level Of Consciousness Sedated [facility] Work Phone: 12-25-2024 Cognitive function Voice/Name [facility] Work Phone: Clinical Notes 10-17-2022 to 12-25-2024 Note Date & Type Note Facility 12-25-2024 Procedure note [facility] 12-25-2024 Consult note Note Date/Time December 25, 2024 9:12am [facility] Medical Records Department [address] [place] [address] Pre-Anesthesia Evaluation 12/25/24 0854 MR#: [id number] Acct: [id number] Name: VLAD SIDDIQI Rep #:[id number] : 1960 64 From: Jose Chung MD PCP: Dr. Kacey Navarro MD Status:RE G [facility] Race: C Location: [place] [address] ASA Classification* ASA Classification ASA Classification: 3 Assessment & Plan Anesthesia* Anesthesia Assessment Anesthesia Assessment: Discussed sedation and/or anesthesia options, risks, benefits, and alternatives with patient/parents/legal guardian/POA. Questions invited. The patient/parents/legal guardian/POA seems to understand and agrees to proceedwith anesthesia plan. Reviewed the physical assessment, medical history, allergy history and patient home medications list prior to surgery/procedure/anesthetic and documented any changes. Performed airway and anesthesia risk assessments. Anesthesia Type Anesthesia Type: General and Block (Patient is consented for a interscalene block.) History Source History Obtained from:: Patient and Chart Anesthesia Focused Assessment* Temperature: 98.4 F Pulse Rate: 92 Blood Pressure: 184/93 Respiratory Rate: 18 Pulse Ox: 97 Oxygen Delivery Method: Room Air Airway Assessment Mouth opens: >3 cm Mallampati Score: IV Teeth Condition: Caps/Crowns (Patient has several caps. They are all tight.) Neck Range of motion (ROM): Limited ROM Focused Labs Anesthesia Preop lab: CBC WBC 7.5 K/mm3 (4.4-11.0) 12/11/24 12:58 12/11/24 RBC 5.24 M/mm3 (4.6-6.2) 12/11/24 12:58 12/11/24 Hgb 16.3 g/dL (13.0-16.5) 12/11/24 12:58 12/11/24 Hct 48.2 % (40-54) 12/11/24 12:58 12/11/24 Plt Count 196 K/mm3 (150-450) 12/11/24 12:58 12/11/24 CHEMISTRY Potassium 4.1 mmol/L (3.3-5.1) 12/11/24 12:58 12/11/24 Sodium 140 mmol/L (133-145) 12/11/24 12:58 12/11/24 Phosphorus 4.0 mg/dL (2.5-4.9) 07/15/24 16:56 07/15/24 BUN 24 mg/dL (4-19) H 12/11/24 12:58 12/11/24 Creatinine 1.28 mg/dL (0.70-1.20) H 12/11/24 12:58 Glucose 108 mg/dL (70-99) H 12/11/24 12:58 12/11/24 TSH 1.50 uIU/mL (0.358-3.74) 09/27/23 16:24 COAG Pre-Assessment Diagnosis/Proposed Procedure Planned Operative Procedure(s): Right shoulder arthroscopic rotator cuff repair and mini open biceps tenodesis. 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 When Was Last Pacemaker Check QUESTION #4 FULL TEXT: You/Your Family Experience fever (hyperthermia) with Anesthesia Last Oral Intake Last Oral intake: Last Oral Intake NPO since 06:00 12/25/24 08:29 Meds taken in AM with sips of Yes 12/25/24 08:29 water? 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 Female No 12/15/24 15:07 HX of Motion Sickness No 12/15/24 15:07 HX of N/V After Surgery No 12/15/24 15:07 Non-Smoker Yes 12/15/24 15:07 Duration of Surgery greater Yes 12/15/24 15:07 than 60 minutes Number of Risk Factors 2 12/15/24 15:07 PONV Score Moderate Risk 12/15/24 15:07 Height & Weight Height & Weight: Anesthesia: Height & Weight Height 5 ft 7 in 12/25/24 08:29 Weight: 124 kg 12/25/24 08:29 Body Mass Index (BMI) 42.7 12/25/24 08:29 Respiratory Assessment 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 Has anyone observed you stop breathing during sleep? STOP Results Positive 12/15/24 15:07 QUESTION #5 FULL TEXT : Do you snore loudly (louder than talking or can be heard through closed doors)? 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 Specify any problems Hx of Preganancy in last 3 N/A 12/15/24 15:07 Months Nurse Filling Out Transfusion DSCHRIBER 12/15/24 15:07 & Questions: Date: 12/15/24 12/15/24 15:07 Time: 15:08 12/15/24 15:07 Patient unable to answer at this time (ie. 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: /Reproductive Hx- metal drill operator Hx Now No 12/15/24 15:07 Gestational Age (in weeks): EDC: Hx Hx Para Hx Section SAB No 12/15/24 15:07 Active Medications Active Medications: Current Medications Generic Name Dose Route Start Last Admin Trade Name Freq PRN Reason Stop Dose Admin Cefazolin Sodium 3 gm/ N/A 30 mls @ 600 mls/hr 12/25/24 10:05 IV 12/25/24 10:07 INTRAOP ONE Sodium Chloride 1,000 mls @ 15 mls/hr 12/25/24 08:30 12/25/24 08:32 IV 15 mls/hr .Q48H DYLON Administration PFSH Medical History Wears glasses Insulin dependent diabetes mellitus History of renal disease Fatty liver High cholesterol Restless legs Dietary restriction Non-smoker CPAP (continuous positive airway pressure) dependence Shortness of breath on exertion History of pain when walking History of stress test Degenerative joint disease (DJD) of lumbar spine Low back pain GERD (gastroesophageal reflux disease) Neuropathy Asthma Arthritis HTN (hypertension) Home Medications ?Medication ?Instructions ?Recorded ?Last Taken ?Type aspirin 81 mg tablet,delayed 81 mg PO DAILY 04/01/20 0 12/19/24 History release (Adult Aspirin Regimen) atorvastatin 20 mg tablet 20 mg PO QHS 04/01/20 Unknow n History multivitamin (Daily Multi-Vitamin 1 tab PO DAILY 04/01 Unknown History tablet) acetaminophen 500 mg tablet 1,000 mg PO TID 04/21/21 U nknown History (Tylenol Extra Strength) loratadine 10 mg tablet 10 mg PO DAILY 05/09/22 Unkn own History pen needle, diabetic 31 gauge x #350 ea 05/01/23 Unkno wn Rx 01/23 (Comfort EZ Pen [place]) fluticasone propionate 50 2 spray intranasal DAILY PRN 10/15/23 Unknown History mcg/actuation nasal allergy symptoms spray,suspension lisinopril 20 mg tablet 20 mg PO DAILY 10/15/2312/09 06:00 History tadalafil 10 mg tablet 20 mg PO DAILY PRN sexual ac tivity 10/15/23 Unknown History insulin aspart 1 sliding scale dose subcut TID 04/04/24 Unknown Rx (niacinamide)(U-100) 100 unit/mL(3 #60 mL mL) subcutaneous pen (Fiasp FlexTouch U-100 Insulin) Farxiga 10 mg tablet 10 mg PO DAILY #90 tabs 06/1212/21/24 Rx (dapagliflozin propanediol) insulin aspart U-100 100 unit/mL 20 unit (0.2 mL) subc ut TID #60 mL 09/05/24 Unknown Rx (3 mL) subcutaneous pen (Novolog FlexPen U-100 Insulin aspart) Held on 12/15/24. Instructions: Ordered albuterol sulfate 90 mcg/actuation 2 inh inhalation Q6 H PRN shortness 12/15/24 Unknown History aerosol inhaler of breath or wheezing cholecalciferol (vitamin D3) 125 125 mcg PO DAILY 04/03 Unknown History mcg (5,000 unit) tablet (Vitamin D3) coenzyme Q10 100 mg capsule (Co 100 mg PO DAILY 12/19/24 History Q-10) insulin regular hum U-500 conc 500 90 unit subcut TID PRN SLIDING 12/15/24 Unknown History unit/mL(3 mL) subcut pen (Humulin SCALE R U-500 (Conc) Insulin Kwikpen) mometasone-formoterol HFA 200 2 puff inhalation BID Unknown History mcg-5 mcg/actuation aerosol inhaler (Dulera) omega-3 fatty acids 500 mg capsule 1,000 mg PO BID 04/03 Unknown History omeprazole 20 mg capsule,delayed 20 mg PO DAILY PRN GE RD 12/15/24 12/25/24 06:00 History release triamcinolone acetonide 0.5 % 1 applic topical BID PRN SKIN 12/15/24 Unknown History topical ointment Allergy/AdvReac Type Severity Reaction Status Date / Time adhesive tape (plastic tape) Allergy Intermediate Rash Verified 12/25/24 08:25 doxycycline Allergy Intermediate Rash Verified 12/25/24 08:25 Penicillins Allergy Intermediate rash Verified 12/25/24 08:25 Sulfa (Sulfonamide Allergy Intermediate Rash Verified 12/25/24 08:25 Antibiotics) exenatide (From [place]) AdvReac Severe Nausea/Vom/ Verified 12/25/24 08:25 Diarrhea Tetracyclines AdvReac Severe Unknown Verified 12/25/24 08:25 Family History Father Arthritis Colon cancer Cancer Diabetes Myocardial infarction CAD (coronary artery disease) Heart disease COPD (chronic obstructive pulmonary disease) Mother Diabetes Heart disease CAD (coronary artery disease) Hypertension CVA (cerebral vascular accident) Surgical History Hx of colonoscopy Hx of left knee surgery History of lumbar fusion History of carpal tunnel surgery of right wrist History of carpal tunnel surgery of left wrist Social History Smoking Status: Never smoker alcohol intake: never substance use type: does not use frequency: daily Review of Systems (Anesthesia) ROS Narrative System reviewed and no additional complaints, except as documented. Physical Exam Resp clear to auscultation bilaterally 12/25/24 0912 <Electronically signed by Jose spicer MD> Date _ Jose Chung MD Cosigner Signature: Date CC: ~ Signed [facility] Work Phone: [phone] [phone] Consult note [facility] Medical Records Department [address] [place] [address] Pre-Anesthesia Evaluation 12/25/24 0854 MR#: [id number] Acct: [id number] Name: VLAD SIDDIQI Rep #:[id number] : 1960 64 From: Jose Chung MD PCP: Dr. Kacey Navarro MD Status:RE G [facility] Race: C Location: [place] [address] ASA Classification* ASA Classification ASA Classification: 3 Assessment & Plan Anesthesia* Anesthesia Assessment Anesthesia Assessment: Discussed sedation and/or anesthesia options, risks, benefits, and alternatives with patient/parents/legal guardian/POA. Questions invited. The patient/parents/legal guardian/POA seems to understand and agrees to proceedwith anesthesia plan. Reviewed the physical assessment, medical history, allergy history and patient home medications list prior to surgery/procedure/anesthetic and documented any changes. Performed airway and anesthesia risk assessments. Anesthesia Type Anesthesia Type: General and Block (Patient is consented for a interscalene block.) History Source History Obtained from:: Patient and Chart Anesthesia Focused Assessment* Temperature: 98.4 F Pulse Rate: 92 Blood Pressure: 184/93 Respiratory Rate: 18 Pulse Ox: 97 Oxygen Delivery Method: Room Air Airway Assessment Mouth opens: >3 cm Mallampati Score: IV Teeth Condition: Caps/Crowns (Patient has several caps. They are all tight.) Neck Range of motion (ROM): Limited ROM Focused Labs Anesthesia Preop lab: CBC WBC 7.5 K/mm3 (4.4-11.0) 12/11/24 12:58 12/11/24 RBC 5.24 M/mm3 (4.6-6.2) 12/11/24 12:58 12/11/24 Hgb 16.3 g/dL (13.0-16.5) 12/11/24 12:58 12/11/24 Hct 48.2 % (40-54) 12/11/24 12:58 12/11/24 Plt Count 196 K/mm3 (150-450) 12/11/24 12:58 12/11/24 CHEMISTRY Potassium 4.1 mmol/L (3.3-5.1) 12/11/24 12:58 12/11/24 Sodium 140 mmol/L (133-145) 12/11/24 12:58 12/11/24 Phosphorus 4.0 mg/dL (2.5-4.9) 07/15/24 16:56 07/15/24 BUN 24 mg/dL (4-19) H 12/11/24 12:58 12/11/24 Creatinine 1.28 mg/dL (0.70-1.20) H 12/11/24 12:58 Glucose 108 mg/dL (70-99) H 12/11/24 12:58 12/11/24 TSH 1.50 uIU/mL (0.358-3.74) 09/27/23 16:24 COAG Pre-Assessment Diagnosis/Proposed Procedure Planned Operative Procedure(s): Right shoulder arthroscopic rotator cuff repair and mini open biceps tenodesis. 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 When Was Last Pacemaker Check QUESTION #4 FULL TEXT: You/Your Family Experience fever (hyperthermia) with Anesthesia Last Oral Intake Last Oral intake: Last Oral Intake NPO since 06:00 12/25/24 08:29 Meds taken in AM with sips of Yes 12/25/24 08:29 water? 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 Female No 12/15/24 15:07 HX of Motion Sickness No 12/15/24 15:07 HX of N/V After Surgery No 12/15/24 15:07 Non-Smoker Yes 12/15/24 15:07 Duration of Surgery greater Yes 12/15/24 15:07 than 60 minutes Number of Risk Factors 2 12/15/24 15:07 PONV Score Moderate Risk 12/15/24 15:07 Height & Weight Height & Weight: Anesthesia: Height & Weight Height 5 ft 7 in 12/25/24 08:29 Weight: 124 kg 12/25/24 08:29 Body Mass Index (BMI) 42.7 12/25/24 08:29 Respiratory Assessment 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 Has anyone observed you stop breathing during sleep? STOP Results Positive 12/15/24 15:07 QUESTION #5 FULL TEXT : Do you snore loudly (louder than talking or can be heard through closeddoors)? 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 Specify any problems Hx of Preganancy in last 3 N/A 12/15/24 15:07 Months Nurse Filling Out Transfusion DSCHRIBER 12/15/24 15:07 & Questions: Date: 12/15/24 12/15/24 15:07 Time: 15:08 12/15/24 15:07 Patient unable to answer at this time (ie. 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: /Reproductive Hx- metal drill operator Hx Now No 12/15/24 15:07 Gestational Age (in weeks): EDC: Hx Hx Para Hx Section SAB No 12/15/24 15:07 Active Medications Active Medications: Current Medications Generic Name Dose Route Start Last Admin Trade Name Freq PRN Reason Stop Dose Admin Cefazolin Sodium 3 gm/ N/A 30 mls @ 600 mls/hr 12/25/24 10:05 IV 12/25/24 10:07 INTRAOP ONE Sodium Chloride 1,000 mls @ 15 mls/hr 12/25/24 08:30 12/25/24 08:32 IV 15 mls/hr .Q48H DYLON Administration PFSH Medical History Wears glasses Insulin dependent diabetes mellitus History of renal disease Fatty liver High cholesterol Restless legs Dietary restriction Non-smoker CPAP (continuous positive airway pressure) dependence Shortness of breath on exertion History of pain when walking History of stress test Degenerative joint disease (DJD) of lumbar spine Low back pain GERD (gastroesophageal reflux disease) Neuropathy Asthma Arthritis HTN (hypertension) Home Medications ?Medication ?Instructions ?Recorded ?Last Taken ?Type aspirin 81 mg tablet,delayed 81 mg PO DAILY 04/01/20 0 12/19/24 History release (Adult Aspirin Regimen) atorvastatin 20 mg tablet 20 mg PO QHS 04/01/20 Unknow n History multivitamin (Daily Multi-Vitamin 1 tab PO DAILY 04/01 Unknown History tablet) acetaminophen 500 mg tablet 1,000 mg PO TID 04/21/21 U nknown History (Tylenol Extra Strength) loratadine 10 mg tablet 10 mg PO DAILY 05/09/22 Unkn own History pen needle, diabetic 31 gauge x #350 ea 05/01/23 Unkno wn Rx 01/23 (Comfort EZ Pen [place]) fluticasone propionate 50 2 spray intranasal DAILY PRN 10/15/23 Unknown History mcg/actuation nasal allergy symptoms spray,suspension lisinopril 20 mg tablet 20 mg PO DAILY 10/15/2312/09 06:00 History tadalafil 10 mg tablet 20 mg PO DAILY PRN sexual ac tivity 10/15/23 Unknown History insulin aspart 1 sliding scale dose subcut TID 04/04/24 Unknown Rx (niacinamide)(U-100) 100 unit/mL(3 #60 mL mL) subcutaneous pen (Fiasp FlexTouch U-100 Insulin) Farxiga 10 mg tablet 10 mg PO DAILY #90 tabs 06/1212/21/24 Rx (dapagliflozin propanediol) insulin aspart U-100 100 unit/mL 20 unit (0.2 mL) subc ut TID #60 mL 09/05/24 Unknown Rx (3 mL) subcutaneous pen (Novolog FlexPen U-100 Insulin aspart) Held on 12/15/24. Instructions: Ordered albuterol sulfate 90 mcg/actuation 2 inh inhalation Q6 H PRN shortness 12/15/24 Unknown History aerosol inhaler of breath or wheezing cholecalciferol (vitamin D3) 125 125 mcg PO DAILY 04/03 Unknown History mcg (5,000 unit) tablet (Vitamin D3) coenzyme Q10 100 mg capsule (Co 100 mg PO DAILY 12/19/24 History Q-10) insulin regular hum U-500 conc 500 90 unit subcut TID PRN SLIDING 12/15/24 Unknown History unit/mL(3 mL) subcut pen (Humulin SCALE R U-500 (Conc) Insulin Kwikpen) mometasone-formoterol HFA 200 2 puff inhalation BID Unknown History mcg-5 mcg/actuation aerosol inhaler (Dulera) omega-3 fatty acids 500 mg capsule 1,000 mg PO BID 04/03 Unknown History omeprazole 20 mg capsule,delayed 20 mg PO DAILY PRN GE RD 12/15/24 12/25/24 06:00 History release triamcinolone acetonide 0.5 % 1 applic topical BID PRN SKIN 12/15/24 Unknown History topical ointment Allergy/AdvReac Type Severity Reaction Status Date / Time adhesive tape (plastic tape) Allergy Intermediate Rash Verified 12/25/24 08:25 doxycycline Allergy Intermediate Rash Verified 12/25/24 08:25 Penicillins Allergy Intermediate rash Verified 12/25/24 08:25 Sulfa (Sulfonamide Allergy Intermediate Rash Verified 12/25/24 08:25 Antibiotics) exenatide (From [place]) AdvReac Severe Nausea/Vom/ Verified 12/25/24 08:25 Diarrhea Tetracyclines AdvReac Severe Unknown Verified 12/25/24 08:25 Family History Father Arthritis Colon cancer Cancer Diabetes Myocardial infarction CAD (coronary artery disease) Heart disease COPD (chronic obstructive pulmonary disease) Mother Diabetes Heart disease CAD (coronary artery disease) Hypertension CVA (cerebral vascular accident) Surgical History Hx of colonoscopy Hx of left knee surgery History of lumbar fusion History of carpal tunnel surgery of right wrist History of carpal tunnel surgery of left wrist Social History Smoking Status: Never smoker alcohol intake: never substance use type: does not use frequency: daily Review of Systems (Anesthesia) ROS Narrative System reviewed and no additional complaints, except as documented. Physical Exam Resp clear to auscultation bilaterally 12/25/24 0912 nayan GARCIA> Date _ Jose Chung MD Cosigner Signature: Date CC: ~ Signed [facility]04-04-2025 History and physical note Author Venus Reveles [facility] Note Date/Time December 12, 2024 9:58 am [facility] Medical Records Department [address] [place] [address] History & Physical Exam 12/12/24957 MR#: [id number] Acct: [id number] Name: VLAD SIDDIQI Rep #:[id number] : 1960 64 From: Venus OVIEDO PCP: Dr. Kacey Navarro MD Status:OK E SDC Location: [facility]C History and Physical History and Physical Patient Name: Vlad SiddiqiDOB: 1960 From: VENUS REVELES PA-C DATE OF PRE-OPERATIVE EXAM: 12/11/2024 DATE OF SURGERY: 12/25/2024 SCHEDULED PROCEDURE: Right shoulder arthroscopic rotator cuff repair and mini open biceps tenodesis. HISTORY OF PRESENT ILLNESS: Vlad Siddiqi presents with right shoulder pain and weakness following a work-related injury on 11/05/24. 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 Patient complains of significant loss of strength in the right arm, inability to reach overhead, and difficulty with daily activities such as brushing teeth. He notes that pain is worst at night when lying down. Vlad mentions noticing decreased ability to throw overhand for the past couple of years. He denies any significant shoulder problems prior to this injury, apart from a fall a few years ago that caused temporary pain. REVIEW OF SYSTEMS: Review Of Systems: Constitutional: Reports weight change, but denies anorexia, change in appetite, fever, difficulty sleeping. Cardiovasular: Denies chest pain, heart murmur, irregular heartbeat and peripheral vascular disease. Respiratory: Denies asthma, cough, pneumonia, sleep apnea, shortness of breath, tuberculosis and wheezing. Gastrointestinal: Denies constipation, diarrhea, heartburn, nausea, rectal itching, bloody stools and vomiting. Genitourinary: . (F Genital Sx) Denies incontinence. Musculoskeletal: Reports pain and weakness, but denies leg swelling and trouble walking. Skin: Denies Raynaud's, history of shingles and tattoo. Neurological: Reports numbness/tingling but denies ambulatory dysfunction, dizziness and tremor. Psychiatric: Denies anxiety, depression, insomnia, mental illness and stress. Hematologic/Lymphatic: Denies anemia, bleeding/bruising tendency and past transfusion. Reviewed, no changes. PAST MEDICAL HISTORY: Advance Care Plan: Other Directive, LIVING WILL Effective Date: 01/30/2022 Past Medical History: Medical Problems: Arthritis, High Blood Pressure, Diabetes, Asthma, Sleep Apnea, Hypercholesterolemia, seasonal allergies Acid Reflux - occasionally Kidney Disease/Renal Failure - Stage - III Accidents: LT Knee Injury - (08/24/2015) FALL BWC - (11/05/2024) right shoulder injury Surgical Hx: [place] Teeth Carpal Tunnel Release RT - (05/29/2013) DR GARCIA @ [facility] Left CTR 10-3-13 [facility] DR Garcia Knee Arthroscopy LT - (02/23/2016) Dr Vandana Stone @ [facility] L4-5 (bilateral) Transforaminal Epidural Steroid Injection - (02/28/2022) Dr Ale Chris @ [facility] Lumbar Fusion - (02/2023) L4-5 Anesthesia Complications: None Assistive Devices: Glasses - READING, Cpap Reviewed, no changes. SOCIAL HISTORY: Social History: Marital: .Occupation: [employer].Work Status: Currently Working.Hand Dominance: Right-handed. Personal Habits: Cigarette Use: Never Smoked Cigarettes.Smokeless Tobacco: Never Used Smokeless Tobacco.E-Cigarette Use: Never used.Alcohol: Denies use.Drug Use: Denies Use.Enjoy Exercising: Exercises 1-3 X/Week. Reviewed, no changes. VITALS: Ht: 67 Wt: 270lb Wt k.472 BMI: 42.3 BP: 126/78 Pulse: 78 Resp: 16 T: 97.7T: 36.5C Pain Level: 6 O2SatR: 97 ALLERGIES: Sulfa Penicillin Doxycycline Byetta MEDICATIONS: Oxycodone HCL 5 mg 1-2 tab by mouth every 6 hours, Aspir-81 81 mg 1 po qday, Multivitamins 1po qday, Atorvastatin Calcium 20 mg 1 tab by mouth every night at bedtime, Lisinopril 20 mg 1 by mouth every day, Vitamin D3 5000 Unit daily, Loratadine 10 mg 1 by mouth every day, Flonase Allergy Relief 50 mcg/Act as needed, Tylenol 8 Hour 650 mg prn, Tadalafil 20 mg 1 by mouth qdaily as needed, Omeprazole 20 mg 1 by mouth every day, Farxiga 10 mg 1 by mouth every day, Coq-10 100 mg daily, Humulin R U-500 Kwikpen 500 Unit/ML as needed, Dulera 200-5 mcg/Act 2 puffs daily, Triamcinolone Acetonide 0.1 % as needed, Fiasp Flextouch 100 Unit/ML as needed PRE-OP EXAM: General appearance:NORMAL Other: Eyes: Conjunctivae and lids: NORMAL Pupils: ERR Ears, Nose, Mouth, and Throat: NORMAL Other: Inspection of lips, teeth and gums: NORMAL Other: Neck: Examination of neck: no masses noted. Respiratory: Assessment of respiratory effort: NORMAL Other: Auscultation of lungs: clear to auscultation no wheezes, rhonchi or rales. Cardiovascular: Auscultation of heart: regular rate and rhythm, no murmurs, gallops or rubs. Exam of carotid arteries: NORMAL Other: Gastrointestinal: Exam of abdomen: soft, nontender, nondistended bowel sounds present. Lymphatic: Palpation of nodes in neck: NORMAL Other: Palpation of nodes in Axillae: NORMAL Other: Neurological: see below Psychiatric: Orientation to time, place and person: NORMAL Other: Mood and affect: NORMAL Other: PHYSICAL EXAMINATION: General Appearance: Well-nourished, well developed in no acute distress Orientation: Oriented to person, place and time. Mood / Affect: Calm Gait: normal Coordination: normal Shoulder Exam (Bilateral) Inspection/Palpation UE (R/L): Bicipital groove tenderness right Active FE (R/L): 140/160 Passive FE (R/L): 160 bilaterally External Rotation at side (R/L): 30 respectively Internal Rotation (R/L): L5/L1 Cross Arm (R/L): neg / neg Empty Can: Positive/neg Caldwell Test (R/L): Positive/ neg Bertie's Test (R/L): Positive/ neg Yergusons Test (R/L): neg / neg Speeds (R/L): Positive/ neg Apprehension (R/L): neg /neg Belly press (R/L): Positive/neg Abduction (R/L): 5/5 / 5/5 ER(R/L): 5/ / /5 IR (R/L): // /5 Biceps (R/L):/ / 5/5 Triceps (R/L):/ / 5/5 Intrinsics (R/L): / / /5 Sensation: Subjective normal median / ulnar / radial / axillary sensation bilaterally Vasculature: 2+ radial pulse bilaterally, BCR in fingertips. UE Skin (R/L): No rashes or lesions. Lymph UE (R/L): No axillary lymphadenopathy DTR UE (R/L): Biceps: (2+/2+); Triceps: (2+/2+) C-spine Flexion: 45 C-spine Extension: 45 C-spine Right Rotation: 70 C-spine Left Rotation: 70 C-Spine Tenderness: non-tender Spurling's Test (R/L): neg / neg IMAGING STUDIES: X-rays reviewed from our office right shoulder 11/11/24 Well-preserved glenohumeral joint space. AC joint arthrosis is noted. No acutebony injury identified. MRI reviewed from [facility] 11/19/24 right shoulder See report for full details Massive rotator cuff tear with involvement of the supraspinatus and infraspinatus tendon. No severe muscle atrophy is noted. Subscapularis tendinosis and interstitial tearing. Biceps tendinosis and tenosynovitis Suspected muscle strain of the supra and infraspinatus muscle bellies Questionable adhesive capsulitis Questionable spinal glenoid notch cyst, 5 mm IMPRESSION: 1. Hypertension. 2. Type 2 diabetes. 3. Asthma. 4. Sleep apnea. 5. Hypercholesterolemia. 6. Acid reflux. 7. Stage III chronic kidney disease. 8. Sprain of the right shoulder. 9. Strain of the rotator cuff of the right shoulder. 10. Bicipital tendinitis of the right shoulder. 11. Obesity. PLAN: The surgeon did discuss and review all treatment options with the patient including surgical versus nonsurgical. At this time the patient does wish to proceed with the above-stated procedure. Potential risks benefits and complications of the procedure were discussed and reviewed with the patient including but not limited to , infection, nerve and blood vessel damage, persistent pain, numbness, tingling, paresthesias, blood clot, pulmonary embolism, in the requirement for possible further surgery. Patient expressed full understanding. Has no further questions for the doctor. Does agree to proceed with the above-stated procedure, and has signed the appropriate surgery consent form. Pain medications: Patient was educated to use Tylenol 1000 mg every 8 hours taking no more than 3000 mg in 24 hours, patient was then educated to use oxycodone as needed for pain control. DVT prophylaxis: We will plan to use aspirin 81 mg twice daily until follow-up appointment. We will avoid NSAIDs in this patient due to patient reported stage III chronic kidney disease. ___ I have re-examined the patient. There are no clinical changes since date of exam. ___ See progress notes for changes. ___ Dictated on admission Date: Time: Signature: 12/12/24 0958 <Electronically signed by Venus OVIEDO> Cosigner Signature (if applicable): CC: IVELISSE Freeman; Dr. Kacey Navarro MD~ Signed [facility] Work Phone: [phone] History and physical note [facility] Medical Records Department [address] [place] [id number] History & Physical Exam 12/12/24 0958 MR#: [id number] Acct: [id number] Name: VLAD SIDDIQI Rep #:[id number] : 1960 64 From: Venus OVIEDO PCP: Dr. Kacey Navarro MD Status:OK E [facility] Location: [facility] History and Physical History and Physical Patient Name: Vlad SiddiqiDOB: 1960 From: VENUS REVELES PA-C DATE OF PRE-OPERATIVE EXAM: 12/11/2024 DATE OF SURGERY: 12/25/2024 SCHEDULED PROCEDURE: Right shoulder arthroscopic rotator cuff repair and mini open biceps tenodesis. HISTORY OF PRESENT ILLNESS: Vlad Siddiqi presents with right shoulder pain and weakness following a work-related injury on 11/05/24. 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 Patient complains of significant loss of strength in the right arm, inability to reach overhead, and difficulty with daily activities such as brushing teeth. He notes that pain is worst at night when lying down. Vlad mentions noticing decreased ability to throw overhand for the past coupleof years. He denies any significant shoulder problems prior to this injury, apart from a fall a fewyears ago that caused temporary pain. REVIEW OF SYSTEMS: Review Of Systems: Constitutional: Reports weight change, but denies anorexia, change in appetite, fever, difficulty sleeping. Cardiovasular: Denies chest pain, heart murmur, irregular heartbeat and peripheral vascular disease. Respiratory: Denies asthma, cough, pneumonia, sleep apnea, shortness of breath, tuberculosis and wheezing. Gastrointestinal: Denies constipation, diarrhea, heartburn, nausea, rectal itching, bloody stools and vomiting. Genitourinary: . (F Genital Sx) Denies incontinence. Musculoskeletal: Reports pain and weakness, but denies leg swelling and trouble walking. Skin: Denies Raynaud's, history of shingles and tattoo. Neurological: Reports numbness/tingling but denies ambulatory dysfunction, dizziness and tremor. Psychiatric: Denies anxiety, depression, insomnia, mental illness and stress. Hematologic/Lymphatic: Denies anemia, bleeding/bruising tendency and past transfusion. Reviewed, no changes. PAST MEDICAL HISTORY: Advance Care Plan: Other Directive, LIVING WILL Effective Date: 01/30/2022 Past Medical History: Medical Problems: Arthritis, High Blood Pressure, Diabetes, Asthma, Sleep Apnea, Hypercholesterolemia, seasonal allergies Acid Reflux - occasionally Kidney Disease/Renal Failure - Stage - III Accidents: LT Knee Injury - (08/24/2015) FALL C - (11/05/2024) right shoulder injury Surgical Hx: [place] Teeth Carpal Tunnel Release RT - (05/29/2013) DR GARCIA @ [facility] Left CTR 10-3-13 [facility] DR Garcia Knee Arthroscopy LT - (02/23/2016) Dr Vandana Stone @ [facility] L4-5 (bilateral) Transforaminal Epidural Steroid Injection - (02/28/2022) Dr Ale Chris @ [facility] Lumbar Fusion - (02/2023) L4-5 Anesthesia Complications: None Assistive Devices: Glasses - READING, Cpap Reviewed, no changes. SOCIAL HISTORY: Social History: Marital: .Occupation: [employer] - [employer].Work Status: Currently Working.Hand Dominance: Right-handed. Personal Habits: Cigarette Use: Never Smoked Cigarettes.Smokeless Tobacco: Never Used Smokeless Tobacco.E-Cigarette Use: Never used.Alcohol: Denies use.Drug Use: Denies Use.Enjoy Exercising: Exercises 1-3 X/Week. Reviewed, no changes. VITALS: Ht: 67 Wt: 270lb Wt k.472 BMI: 42.3 BP: 126/78 Pulse: 78 Resp: 16 T: 97.7T: 36.5C Pain Level: 6 O2SatR: 97 ALLERGIES: Sulfa Penicillin Doxycycline Byetta MEDICATIONS: Oxycodone HCL 5 mg 1-2 tab by mouth every 6 hours, Aspir-81 81 mg 1 po qday, Multivitamins 1po qday, Atorvastatin Calcium 20 mg 1 tab by mouth every night at bedtime, Lisinopril 20 mg 1 by mouth every day, Vitamin D3 5000 Unit daily, Loratadine 10 mg 1 by mouth every day, Flonase Allergy Relief 50 mcg/Act as needed, Tylenol 8 Hour 650 mg prn, Tadalafil 20 mg 1 by mouth qdaily as needed, Omeprazole 20 mg 1 by mouth every day, Farxiga 10 mg 1 by mouth every day, Coq- 10 100 mg daily, Humulin R U-500 Kwikpen 500 Unit/ML as needed, Dulera 200-5 mcg/Act 2 puffs daily, Triamcinolone Acetonide 0.1 % as needed, Fiasp Flextouch 100 Unit/ML as needed PRE-OP EXAM: General appearance:NORMAL Other: Eyes: Conjunctivae and lids: NORMAL Pupils: ERR Ears, Nose, Mouth, and Throat: NORMAL Other: Inspection of lips, teeth and gums: NORMAL Other: Neck: Examination of neck: no masses noted. Respiratory: Assessment of respiratory effort: NORMAL Other: Auscultation of lungs: clear to auscultation no wheezes, rhonchi or rales. Cardiovascular: Auscultation of heart: regular rate and rhythm, no murmurs, gallops or rubs. Exam of carotid arteries: NORMAL Other: Gastrointestinal: Exam of abdomen: soft, nontender, nondistended bowel sounds present. Lymphatic: Palpation of nodes in neck: NORMAL Other: Palpation of nodes in Axillae: NORMAL Other: Neurological: see below Psychiatric: Orientation to time, place and person: NORMAL Other: Mood and affect: NORMAL Other: PHYSICAL EXAMINATION: General Appearance: Well-nourished, well developed in no acute distress Orientation: Oriented to person, place and time. Mood / Affect: Calm Gait: normal Coordination: normal Shoulder Exam (Bilateral) Inspection/Palpation UE (R/L): Bicipital groove tenderness right Active FE (R/L): 140/160 Passive FE (R/L): 160 bilaterally External Rotation at side (R/L): 30 respectively Internal Rotation (R/L): L5/L1 Cross Arm (R/L): neg / neg Empty Can: Positive/neg Caldwell Test (R/L): Positive/ neg Bertie's Test (R/L): Positive/ neg Yergusons Test (R/L): neg / neg Speeds (R/L): Positive/ neg Apprehension (R/L): neg /neg Belly press (R/L): Positive/neg Abduction (R/L): 01/12 ER(R/L): 01/12 IR (R/L): 01/12 Biceps (R/L):01/12 Triceps (R/L):01/12 Intrinsics (R/L): 01/12 Sensation: Subjective normal median / ulnar / radial / axillary sensation bilaterally Vasculature: 2+ radial pulse bilaterally, BCR in fingertips. UE Skin (R/L): No rashes or lesions. Lymph UE (R/L): No axillary lymphadenopathy DTR UE (R/L): Biceps: (2+/2+); Triceps: (2+/2+) C-spine Flexion: 45 C-spine Extension: 45 C-spine Right Rotation: 70 C-spine Left Rotation: 70 C-Spine Tenderness: non-tender Spurling's Test (R/L): neg / neg IMAGING STUDIES: X-rays reviewed from our office right shoulder 11/11/24 Well-preserved glenohumeral joint space. AC joint arthrosis is noted. No acutebony injury identified. MRI reviewed from [facility] 11/19/24 right shoulder See report for full details Massive rotator cuff tear with involvement of the supraspinatus and infraspinatus tendon. No severemuscle atrophy is noted. Subscapularis tendinosis and interstitial tearing. Biceps tendinosis and tenosynovitis Suspected muscle strain of the supra and infraspinatus muscle bellies Questionable adhesive capsulitis Questionable spinal glenoid notch cyst, 5 mm IMPRESSION: 1. Hypertension. 2. Type 2 diabetes. 3. Asthma. 4. Sleep apnea. 5. Hypercholesterolemia. 6. Acid reflux. 7. Stage III chronic kidney disease. 8. Sprain of the right shoulder. 9. Strain of the rotator cuff of the right shoulder. 10. Bicipital tendinitis of the right shoulder. 11. Obesity. PLAN: The surgeon did discuss and review all treatment options with the patient including surgical versusnonsurgical. At this time the patient does wish to proceed with the above-stated procedure. Potential risks benefits and complications of the procedure were discussed and reviewed with the patient inc luding but not limited to , infection, nerve and blood vessel damage, persistent pain, numbness, tingling, paresthesias, blood clot, pulmonary embolism, in the requirement for possible further surgery. Patient expressed full understanding. Has no further questions for the doctor. Does agree to proceed with the above-stated procedure, and has signed the appropriate surgery consent form. Pain medications: Patient was educated to use Tylenol 1000 mg every 8 hours taking no more than 3000 mg in 24 hours, patient was then educated to use oxycodone as needed for pain control. DVT prophylaxis: We will plan to use aspirin 81 mg twice daily until follow-up appointment. We will avoid NSAIDs in this patient due to patient reported stage III chronic kidney disease. ___ I have re-examined the patient. There are no clinical changes since date of exam. ___ See progress notes for changes. ___ Dictated on admission Date: Time: Signature: 12/12/24 0958 [facility] Signature (if applicable): CC: IVELISSE Freeman; Dr. Kacey Navarro MD~ Signed [facility]04-04-2025 [facility] Medical Records Department [address] [place] [address] History Physical Exam 12/12/24 0958 MR#: [id number] Acct: [id number] Name: VLAD SIDDIQI Rep #: [id number] : 1960 64 From: Venus OVIEDO PCP: Dr. Kacey Navarro MD Status:PRE [facility] Location: [facility] History and Physical History and Physical Patient Name: Vlad SiddiqiDOB: 1960 From: VENUS REVELES PA-C DATE OF PRE-OPERATIVE EXAM: 12/11/2024 DATE OF SURGERY: 12/25/2024 SCHEDULED PROCEDURE: Right shoulder arthroscopic rotator cuff repair and mini open biceps tenodesis. HISTORY OF PRESENT ILLNESS: Vlad Siddiqi presents with right shoulder pain and weakness following a work-related injury on 11/05/24. 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 Patient complains of significant loss of strength in the right arm, inability to reach overhead, and difficulty with daily activities such as brushing teeth. He notes that pain is worst at night when lying down. Vlad mentions noticing decreased ability to throw overhand for the past couple of years. He denies any significant shoulder problems prior to this injury, apart from a fall a few years ago that caused temporary pain. REVIEW OF SYSTEMS: Review Of Systems: Constitutional: Reports weight change, but denies anorexia, change in appetite, fever, difficulty sleeping. Cardiovasular: Denies chest pain, heart murmur, irregular heartbeat and peripheral vascular disease. Respiratory: Denies asthma, cough, pneumonia, sleep apnea, shortness of breath, tuberculosis and wheezing. Gastrointestinal: Denies constipation, diarrhea, heartburn, nausea, rectal itching, bloody stools and vomiting. Genitourinary: . (F Genital Sx) Denies incontinence. Musculoskeletal: Reports pain and weakness, but denies leg swelling and trouble walking. Skin: Denies Raynaud's, history of shingles and tattoo. Neurological: Reports numbness/tingling but denies ambulatory dysfunction, dizziness and tremor. Psychiatric: Denies anxiety, depression, insomnia, mental illness and stress. Hematologic/Lymphatic: Denies anemia, bleeding/bruising tendency and past transfusion. Reviewed, no changes. PAST MEDICAL HISTORY: Advance Care Plan: Other Directive, LIVING WILL Effective Date: 01/30/2022 Past Medical History: Medical Problems: Arthritis, High Blood Pressure, Diabetes, Asthma, Sleep Apnea, Hypercholesterolemia, seasonal allergies Acid Reflux - occasionally Kidney Disease/Renal Failure - Stage - III Accidents: LT Knee Injury - (08/24/2015) FALL [facility]WC - (11/05/2024) right shoulder injury Surgical Hx: [place] Teeth Carpal Tunnel Release RT - (05/29/2013) DR GARCIA @ [facility] Left CTR 06-12-13 [facility] DR Garcia Knee Arthroscopy LT - (02/23/2016) Dr Vandana Stone @ [facility] L4-5 (bilateral) Transforaminal Epidural Steroid Injection - (02/28/2022) Dr Ale Chris @ [facility] Lumbar Fusion - (02/2023) L4-5 Anesthesia Complications: None Assistive Devices: Glasses - READING, Cpap Reviewed, no changes. 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 Personal Habits: Cigarette Use: Never Smoked Cigarettes.Smokeless Tobacco: Never Used Smokeless Tobacco.E-Cigarette Use: Never used.Alcohol: Denies use.Drug Use: Denies Use.Enjoy Exercising: Exercises 1-3 X/Week. Reviewed, no changes. VITALS: Ht: 67 Wt: 270lb Wt k.472 BMI: 42.3 BP: 126/78 Pulse: 78 Resp: 16 T: 97.7 T: 36.5C Pain Level: 6 O2SatR: 97 ALLERGIES: Sulfa Penicillin Doxycycline [place]etta MEDICATIONS: Oxycodone HCL 5 mg 1-2 tab by mouth every 6 hours, Aspir-81 81 mg 1 po qday, Multivitamins 1po qday, Atorvastatin Calcium 20 mg 1 tab by mouth every night at bedtime, Lisinopril 20 mg 1 by mouth every day, Vitamin D3 5000 Unit daily, Loratadine 10 mg 1 by mouth every day, Flonase Allergy Relief 50 mcg/Act as needed, Tylenol 8 Hour 650 mg prn, Tadalafil 20 mg 1 by mouth qdaily as needed, Omeprazole 20 mg 1 by mouth every day, Farxiga 10 mg 1 by mouth every day, Coq- 10 100 mg daily, Humulin R U-500 Kwikpen 500 Unit/ML as needed, Dulera 200-5 mcg/Act 2 puffs daily, Triamcinolone Acetonide 0.1 % as needed, Fiasp Flextouch 100 Unit/ML as needed PRE-OP EXAM: General appearance:NORMAL Other: Eyes: Conjunctivae and lids: NORMAL Pupils: ERR Ears, Nose, Mouth, and Throat: NORMAL Other: Inspection of lips, teeth and gums: NORMAL Other: Neck: Examination of neck: no masses noted. Respiratory: Assessment of respiratory effort: NORMAL Other: Auscultation of lungs: clear to auscultation no wheezes, rhonchi or rales. Cardiovascular: Auscultation of heart: regular rate and rhythm, no murmurs, gallops or rubs. Exam of carotid arteries: NORMAL Other: Gastrointestinal: Exam of abdomen: soft, nontend (more content not included)... [facility]06-07-2023 NoteHNO ID: [id number] Author: Carmen Kimble PA-C Service: Orthopaedic Surgery Author Type: Physician Scuba Diving Instructor Type: Progress Notes Filed: 02/14/2023 8:18 AM [...] Prophylaxis/Anticoagulants 02/13/23 1300 vte pharmacologic prophylaxis contraindicated (tx,oh) 02/13/23 1300 pneumatic compression stockings (tx,oh) 02/13/23 1300 graduated compression stockings ([place] 02/13/23 1300 activity - mobilize patient ([place]) VTE Prophylaxis: VTE prophylaxis appropriate SIGNATURE: Carmen Kimble PA-C PATIENT NAME: Vlad Siddiqi DATE: February 14, 2023 [facility]: 8[facility] NoteHNO ID: [id number] Author: Dany Alvarez APRN.CRNA Service: ? Author Type: Nurse Gameplay Programmer Type: Anesthesia Procedure Notes Filed: 02/13/2023 8:21 AM Note Text: ANESTHESIOLOGY PROCEDURE NOTE Airway General Information Procedure Start Time/Medication Administration: 02/13/2023 7:51 AM Procedure End Time: 02/13/2023 7:51 AM Patient location during procedure: OR Timeout Performed Pre-procedure: timeout performed Consent Obtained: Yes Patient identity confirmed: arm band Staffing DELIVERY OF SHOPPING NEWS: Dany Alvarez APRN.DELIVERY OF SHOPPING NEWS Performed by: [place] Indications and Patient Condition [...] AM SIGNATURE: Dany Alvarez APRN.CRNA PATIENT NAME: Vlad Siddiqi DATE: February 13, 2023 TIME: 8:17 AM CSN: [id number]06-05-2023 NoteHNO ID: [id number] Author: Gretta Hernandez RN Service: Nursing Author [...] 5325 mg per tablet PRN if needed droptxjwnyb-iptduccma-azjmvuxw (TRELEGY ELLIPTA) 100-62.5-25 mcg inhalation powder Use [...] inpn DO NOT TAKE MORNING OF SURGERY [place]-3 Fatty Acids 500 mg cap DO NOT [...] directed. Bring copy of Living Will/Power of Country Sales Manager. Do not smoke or chew. If [...] Surgery Center. UPON ARRIVAL: Access to [facility] ([facility]) is located on [address] Printing Press Operator parking is available for your convenience from [...] you. The preoperative staff (more content not included)...[facility]05-30-2023 NoteHNO ID: [id number] Author: Ada Flores MD Service: ? Author Type: Physician Type: Progress Notes Filed: 02/06/2023 3:16 PM Note Text: Summary: MEDICAL, PULMONARY AND ENDO CLERANCES Medical: optimized Pulmonary: Doing very well on current treatment without need for rescue inhaler Endocrinology: 7.2 A1C by [facility]05-24-2023 NoteHNO ID: [id number] Author: Juan Villagomez PA-C Service: ? Author Type: Physician Scuba Diving Instructor Type: Progress Notes Filed: 02/02/2023 3:43 PM Note Text: PACC Consult SERVICE DATE: 01/31/2023 SERVICE TIME: 9:55 AM PRIMARY CARE PHYSICIAN: Rj Chaidez MD REASON FOR VISIT: Vlad Siddiqi is a 63 year old male [...] back H/O cardiovascular stress test 01/23/2023 at [facility] Herpes zoster without mention of complication [...] DX W/COLLJ SPEC WHEN PFRMD 09/13/2006 repeat [id number] COLONOSCOPY FLX DX W/COLLJ SPEC WHEN PFRMD [...] twice daily as needed (pain). 5-325mg Yes yftzdyxollu-yqpcchypx-uqummbgw (TRELEGY ELLIPTA) 100-62.5-25 mcg inhalation powder Inhale [...] As needed per implanted glucose monitor Yes [place]-3 Fatty Acids 500 mg cap Take 1,000 mg by mouth twice daily. Yes lisinopril (ZESTRIL, PRINIVIL) 20 mg tablet Take 20 mg by mouth every morning. Yes atorvastat (more content not included)...[facility]05-24-2023 NoteHNO ID: [id number] Author: Juan Villagomez PA-C Service: ? Author Type: Physician Scuba Diving Instructor Type: Progress Notes Filed: 01/31/2023 10:34 AM [...] 5325 mg per tablet PRN if needed xgodeeukvqh-bporgdayw-vtbbpfyn (TRELEGY ELLIPTA) 100-62.5-25 mcg inhalation powder Use [...] inpn DO NOT TAKE MORNING OF SURGERY [place]-3 Fatty Acids 500 mg cap DO NOT [...] updated instructions for the morning of your procedure.[facility]05-24-2023 NoteHNO ID: [id number] Author: Ada Flores MD Service: ? Author Type: Physician Type: Progress Notes Filed: 01/31/2023 10:34 AM Note Text: 02/13/23 L4/5 PLF - [place] 63 yo [place] man, non-smoker. PMHx of DM-2, insulin requiring, with neuropathy. HTN, HLP, DEION, asthmaO[facility] Miscellaneous Notes* Telephone Encounter - Mychal Allen - 01/16/2023 10:50 AM EDT Patient notified our instructions state no fiber diet to decrease the amount of stool being made toallow a full clean out for procedure. Failure to be cleaned out could result in not being able to complete procedure. Patent aware and verbalized understanding. Would like to proceed with procedure. Mychal Allen Help Desk Coordinator * Telephone Encounter - Mychal Allen - 01/08/2023 11:37 AM EDT Patient called in stating his diabetic doctor has an issue with no fiber - more protein diet leading up to colonoscopy due to sugar levels. Patient asking what to do Please advise Mychal Allen Help Desk Coordinator * Telephone Encounter - Mychal Allen - 01/03/2023 8:24 AM EDT Patient notified * Telephone Encounter - Juan Guallpa MD - 01/02/2023 3:29 PM EDT There will be no interference * Telephone Encounter - Mychal Allen - 12/28/2022 9:03 AM EDT Patient called in to inform Dr. Guallpa that patient is to have anesthesia for his shot for his back on 01/17/2023 and wasn't sure if this would interfere with colonoscopy at [facility] on 01/15/2023 Please advise Thank you Mychal Allen Help Desk Coordinator documented in this encounterOhio[facility]-2023 NoteHNO ID: [id number] Author: Lillian Olivarez RN Service: ? Author Type: Registered Nurse Type: Nursing Progress Note Filed: 01/15/2023 9:14 AM Note Text: Patient checked his blood glucose with Vish, result 205[facility] NoteHNO ID: [id number] Author: Lillian Olivarez RN Service: ? Author Type: Registered Nurse Type: Nursing Progress Note Filed: 01/15/2023 9:10 AM Note Text: Patient resting, noted to be passing small amounts of air rectally.[facility]05-08-[facility]23 Nurse Note* Lillian Olivarez RN - 01/15/2023 9:00 AM EDT Patient checked his blood glucose with Vish, result 205 * Lillian Olivarez RN - 01/15/2023 8:45 AM EDT Patient resting, noted to be passing small amounts of air rectally. * Lillian Olivarez RN - 01/15/2023 8:28 AM EDT Patient received in phase II via cart left lateral position, eyes closed but open to verbal stimuli, skin warm and dry, respirations regular and unlabored, abdomen rounded and slightly distended, denies pain, cramps or nausea. Encouraged to pass air rectally as able, resting comfortably on left side. documented in this encounterOhiohealth [facility]05-08-2023 History and physical note * Juan Guallpa MD - 01/15/2023 8:00 AM EDT Images from the original note were not included. HISTORY AND PHYSICAL Vlad Siddiqi 1960 REFERRING PHYSICIAN: Vlad Kaur MD CHIEF COMPLAINT: Consult (Colonoscopy last colonoscopy was 10/2019) HPI: The patient is a 62 year old male referred for endoscopy. Vlad notes personal history of colon polyps and family history of colon cancer and is due for high-risk surveillance colonoscopy. Patient denies any change in bowel habits, weight changes, blood in stools, black tarry stools or abdominal pain. The patient notes no upper GI complaints. Vlad has undergone prior endoscopy. Last colonoscopy 11/04/[address] Kaur with removal of multiple polyps, 3 year [...] DX W/COLLJ SPEC WHEN PFRMD 09/13/06 repeat [id number] COLONOSCOPY FLX DX W/COLLJ SPEC WHEN PFRMD [...] mcg/actuation inhaler Inhale 1 Puff as instructed asneeded. insulin aspart (NOVOLOG FLEXPEN) 100 unit/mL inpn Inject 20 units sc at breakfast, 25 units at lunch, 30 units at supper. Insulin [place], Disposable, (PEN NEEDLES) 31 gauge x 1/4 ndle For insulin injection 3x daily. [place]-3 Fatty Acids 500 mg cap Take 1,000 [...] Syringe-Needle U-100 1 mL 31 gauge x /16 syrg Two daily for insulin injections. insulin glargine (LANTUS) 100 unit/mL injection 60 units in the am and 60 units in the pm. (Patienttaking differently: Inject 80 Units subcutaneously. basaglar ) LOVAZA 1 gram capsule Take 2 capsules by mouth twice daily. (Patient not taking: Reported on 08/23/2021 ) No current facility-administered medications for this visit. ALLERGIES: Adhesive Tape (Rosins), Byetta [Exenatide], [place], Grass Pollen, Penicillins, Sulfa (Sulfonamide Antibiotics), Thiazides, [...] entered by the nurse and reviewed by ma Nursing Notes: Dinorah Bourne LPN 10/17/2022 3:41 [...] failure, other cardiac issues, denies claudication, denies coldfeet, denies peripheral arterial stent. Respiratory: The patient [...] the PFSH and ROS obtained by others. Sandy Kessler PA-C PHYSICAL EXAMINATION: General: The patient is 62 year old male, well nourished, well hydrated in no acute distress. The patient is oriented to time, place, and person. VITALS: Blood pressure 126/82, pulse 103, temperature 37 C (98.6 F), height 167.6 cm (5' 6), weight 118.4 kg (261 lb), SpO2 100 %. Body mass index is 42.13 kg/m . HEENT: Normal cephalic, ataumatic, pupils are equally round, sclera are anicteric, mucous membranesare moist, oropharynx is clear. Neck has no [...] Will plan for lower endoscopy. We discussed therisks and benefits of the planned endoscopy. I have informed the patient that complications can occur including failure to complete the endoscopy and perforation. The patient had the opportunity to ask questions concerning the planned endoscopy. My staff has also explained the procedure to the patient in understandable terms and has given the patient printed material concerning the procedure. Thepatient freely consents to surgery. The patient was offered a [facility]/procedure [facility]. I have counseled the patient [...] which included preparing to see the patient, [id number] patient care, completing clinical documentation, obtaining and/or reviewing separately obtained history, performing a medically appropriate examination, counseling and educating the pat ient/family/caregiver, and ordering medications, tests, or procedures. Sandy Kessler PA-C UPDATED HISTORY AND PHYSICAL EXAMINATION SERVICE DATE: 01/15/2023 SERVICE TIME: 8:01 AM PHYSICAL EXAM MUST BE COMPLETED ON ADMISSION The History and Physical (completed in the past 30 days) has been reviewed and the patient has beenexamined. The contents accurately reflect the patient's condition with the following additions or revisions since the H&P was completed. Examination indicates no changes. This H&P can be found in the attached. SIGNATURE: Juan Guallpa III, MD PATIENT NAME: Vlad Siddiqi DATE: January 15, 2023 TIME: 8:01 AM documented in this encounterOhiohealth [facility]03-17-2023 Miscellaneous Notes* Telephone Encounter - Concetta Kumar - 11/24/2022 3:00 PM EDT Patient called and canceled his colonoscopy screening due to finances. documented in this encounterOhiohealth [facility]02-07-2023 NoteHNO ID: [id number] Author: Sandy Kessler PA-C Service: ? Author Type: Physician Scuba Diving Instructor Type: Progress Notes Filed: 10/17/2022 5:34 PM Note Text: HISTORY AND PHYSICAL Vlad Siddiqi 1960 REFERRING PHYSICIAN: Vlad Kaur MD CHIEF COMPLAINT: Consult (Colonoscopy last colonoscopy was 10/2019) HPI: The patient is a 62 year old male referred for endoscopy. Vlad notes personal history of colon polyps and family history of colon cancer and is due for high-risk surveillance colonoscopy. Patient denies any change in bowel habits, weight changes, blood in stools, black tarry stools or abdominal pain. The patient notes no upper GI complaints. Vlad has undergone prior endoscopy. Last colonoscopy 11/04/[address] Kaur with removal of multiple polyps, 3 year [...] DX W/COLLJ SPEC WHEN PFRMD 09/13/06 repeat [id number] COLONOSCOPY FLX DX W/COLLJ SPEC WHEN PFRMD [...] at lunch, 30 units at supper. Insulin [place], Disposable, (PEN NEEDLES) 31 gauge x 1/4 ndle For insulin injection 3x daily. [place]-3 Fatty Acids 500 mg cap Take 1,000 [...] visit. ALLERGIES: Adhesive Tape (Rosins), [place] [Exenatide], [place], Grass Pollen, Penicillins, Sulfa (Sulfonamide Antibiotics), Thiazides, [...] Diabetes Paternal Grandfather REVIEW (more content not included)...[facility]02-07-2023 History of Present illness Narrative* Sandy Kessler PA-C - 10/17/2022 3:46 PM EST HISTORY AND PHYSICAL Vlad Siddiqi 1960 REFERRING PHYSICIAN: Vlad Kaur MD CHIEF COMPLAINT: Consult (Colonoscopy last colonoscopy was 10/2019) HPI: The patient is a 62 year old male referred for endoscopy. Vlad notes personal history of colon polyps and family history of colon cancer and is due for high-risk surveillance colonoscopy. Patient denies any change in bowel habits, weight changes, blood in stools, black tarry stools or abdominal pain. The patient notes no upper GI complaints. Vlad has undergone prior endoscopy. Last colonoscopy 11/04/[address] Kaur with removal of multiple polyps, 3 year [...] DX W/COLLJ SPEC WHEN PFRMD 09/13/06 repeat [id number] COLONOSCOPY FLX DX W/COLLJ SPEC WHEN PFRMD [...] mcg/actuation inhaler Inhale 1 Puff as instructed asneeded. insulin aspart (NOVOLOG FLEXPEN) 100 unit/mL inpn Inject 20 units sc at breakfast, 25 units at lunch, 30 units at supper. Insulin [place], Disposable, (PEN NEEDLES) 31 gauge x 1/4 ndle For insulin injection 3x daily. [place]-3 Fatty Acids 500 mg cap Take 1,000 [...] am and 60 units in the pm. (Patienttaking differently: Inject 80 Units subcutaneously. basaglar ) LOVAZA 1 gram capsule Take 2 capsules by mouth twice daily. (Patient not taking: Reported on 08/23/2021 ) No current facility-administered medications for this visit. ALLERGIES: Adhesive Tape (Rosins), [place] [Exenatide], [place], Grass Pollen, Penicillins, Sulfa (Sulfonamide Antibiotics), Thiazides, [...] entered by the nurse and reviewed by ma Nursing Notes: Dinorah Bourne LPN 10/17/2022 3:41 [...] failure, other cardiac issues, denies claudication, denies coldfeet, denies peripheral arterial stent. Respiratory: The patient [...] the PFSH and ROS obtained by others. Sandy Kessler PA-C PHYSICAL EXAMINATION: General: The patient is 62 year old male, well nourished, well hydrated in no acute distress. The patient is oriented to time, place, and person. VITALS: Blood pressure 126/82, pulse 103, temperature 37 C (98.6 F), height 167.6 cm (5' 6), weight 118.4 kg (261 lb), SpO2 100 %. Body mass index is 42.13 kg/m . HEENT: Normal cephalic, ataumatic, pupils are equally round, sclera are anicteric, mucous membranesare moist, oropharynx is clear. Neck has no [...] Will plan for lower endoscopy. We discussed therisks and benefits of the planned endoscopy. I have informed the patient that complications can occur including failure to complete the endoscopy and perforation. The patient had the opportunity to ask questions concerning the planned endoscopy. My staff has also explained the procedure to the patient in understandable terms and has given the patient printed material concerning the procedure. Thepatient freely consents to surgery. The patient was offered a surgery/procedure at [facility]. I have counseled the patient [...] which included preparing to see the patient, [id number] patient care, completing clinical documentation, obtaining and/or reviewing separately obtained history, performing a medically appropriate examination, counseling and educating the pat ient/family/caregiver, and ordering medications, tests, or procedures. Sandy Kessler PA-C documented in this encounterOhiohealth [facility]ady [facility]02-07-2023 Nurse Note* Dinorah Bourne, TUBE INSPECTOR - 10/17/2022 3:39 PM EST REVIEW OF SYSTEMS: General: The patient denies [...] failure, other cardiac issues, denies claudication, denies coldfeet, denies peripheral arterial stent. Respiratory: The patient [...] 2019 Dinorah Bourne LPN documented [facility]+Reason for visit Narrative* Chief Complaint 3 M FU 3 M FU PRE PROCEDURE PRE PROCEDURE Reason for Visit Non-proliferative di abetic retinopathy, both eyes Benign essential hypertension Diabetes mellitus Mixed hyperlipidemia Obesity Benign essential hypertension Diabetes mellitus Mixed hyperlipidemia [facility] Work Phone: Evaluation + Plan note No data available for this section [facility] Evaluation + Plan note Future Appointments Appointment Date:05/16/2022 10:30:00 AM Scheduled Provider:KACEY AUSTIN MD Location:[facility] Appointment Type:PM OV 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 Diabetes mellitus chronic Benign essential hypertension chronic Diabetes mellitus chronic Obesity [facility] Work Phone: Evaluation note* Diagnosis Encounter for screening for malignant neoplasm of colon- Primary Special screening for malignant neoplasms, colon Personal history of colonic polyps documented in this encounter [facility]* Diagnosis Onset Date Resolution Status Non-proliferative diabetic retinopathy, both eyes acute Benign essential hypertension chronic Diabetes mellitus chronic Mixed hyperlipidemia chronic Obesity chronic Benign essential hypertension chronic Diabetes mellitus chronic Mixed hyperlipidemia chronic Obesity [facility] Work Phone: Evgtjation note* Diagnosis Onset Date Resolution Status Benign essential hypertension chronic Diabetes mellitus chronic Mixed hyperlipidemia chronic Non-proliferative diabetic retinopathy, both eyes chronic Obesity [facility] Work Phone: [phone] note* Diagnosis Encounter for screening for malignant neoplasm of colon- Primary Special screening for malignant neoplasms, colon Personal history of colonic polyps Family history of colon cancer Family history of malignant neoplasm of gastrointestinal tract documented in this encounter [facility] HospitalEvaluation noteNo assessment information availableWRiverview Health Institute Work Phone: Hospital Discharge instructions No data available for this section [facility] Progress note No data available for this section [facility] Reason for referral (narrative)* Outpatient Procedure (Routine) - Closed Specialty Diagnoses / Procedures Referred By Contac t Referred To Contact [facility] Diagnoses Personal history of colonic polyps Family history of colon cancer Procedures COLONOSCOPY SCREENING COLONOSCOPY FLX DX W/COLLJ SPEC WHEN Sandy Ivey PA-C [address] [place] [address] [facility] [address] [place] [address] Referral ID Status Reason Start Date Expiration Date V isits Requested Visits Authorized [id number] Closed Auto-Generate d Referral 10/17/2022 10/17/2023 1 1 [facility] (narrative)No reason for referral information availableWRiverview Health Institute Work Phone: Reason for visit Narrative* Outpatient Procedure (Routine) - Closed Specialty Diagnoses / Procedures Referred By Anthony price Referred To Contact [facility] Diagnoses Personal history of colonic polyps Family history of colon cancer Procedures COLONOSCOPY SCREENING COLONOSCOPY FLX DX W/COLLJ SPEC WHEN Sandy Ivey PA-C [address] [place] [address] [facility] [address] [place] [address] Referral ID Status Reason Start Date Expiration Date V isits Requested Visits Authorized [id number] Closed Auto-Generate d Referral 10/17/2022 10/17/2023 1 1 [facility] Chief Complaint and Reason for Visit Chief Complaint 6 M FU Reason for Visit Benign essential hyp ertension Diabetes mellitus Mixed hyperlipidemia Obesity Chief Complaint 4 M FU 2 M FU Reason for Visit Degenerative joint d isease (DJD) of lumbar spine Diabetes mellitus Benign essential hypertension Diabetes mellitus Obesity Chief Complaint 4 M FU 2 M FU SPINAL STENOSIS,BACK PAIN,SCIATIC/PT HAS RX Reason for Visit Degenerative joint d isease (DJD) of lumbar spine Diabetes mellitus Benign essential hypertension Diabetes mellitus Obesity Chief Complaint Early satiety 4 M FU Arthrodesis status/RX HERE Reason for Visit Benign essential hyp ertension Diabetes mellitus Mixed hyperlipidemia Non-proliferative diabetic retinopathy, both eyes Obesity Chief Complaint 4 M FU Arthrodesis status/RX HERE BOTH KNEE PAIN Reason for Visit Benign essential hyp ertension Diabetes mellitus Mixed hyperlipidemia Non-proliferative diabetic retinopathy, both eyes Obesity Chief Complaint BOTH KNEE PAIN X-RAY OF CERVICAL SPINE AND BILATERAL SHOULDERS Chief Complaint BOTH KNEE PAIN X-RAY OF CERVICAL SPINE AND BILATERAL SHOULDERS 6 M FU Reason for Visit Benign essential hyp ertension Diabetes mellitus Mixed hyperlipidemia Non-proliferative diabetic retinopathy, both eyes Obesity Chief Complaint Admit Date PREOP December 18, 2024 10: 01am RIGHT SHOULDER ARTHROSCOPIC ROTATOR CUFF REPAIR AN December 25, 2024 7:44am Chief Complaint Admit Date PREOP December 18, 2024 10: 01am RIGHT SHOULDER ARTHROSCOPIC ROTATOR CUFF REPAIR AN December 25, 2024 7:44am 6 M FU January 22, 2025 3:24p m Family History No Family History Records Found Relationship Condition Age at Onset Recorded Date/T mark father Arthritis Unknown Malignant neoplasm of colon Unknown Malignant neoplasm Unknown Diabetes mellitus Unknown Myocardial infarction Unknown Coronary artery disease Unknown Cardiac disease Unknown Chronic obstructive pulmonary disease Unk nown mother Diabetes mellitus Unknown Hypertension Unknown Cerebrovascular accident (CVA) Unknown Summary Purpose Advance Directives No Advanced Directives Records FoundLatest Code Status on File Code Status Date Activated Date Inactivated Comments Full Code 02/13/2023 12:50 PM Full Code Order Discussed With: Discussion Not M edically Appropriate Latest Code Status on File Code Status Date Activated Date Inactivated Comments Full Code 02/13/2023 12:50 PM 02/14/2023 8:08 PM Question Answer Comments Full Code Order Discussed With: Discussion Not Medically Appropriate Advance Directive Response Recorded Date/ Time Living Will Yes December 15, 2024 3:07pm Do you have a Healthcare Power of Country Sales Manager? Yes December 15, 2024 3:07pm Name of Medical Power of Country Sales Manager December 15, 2024 3:07pm Medications Administered Section Inactive Administered Medications - [...] AM EDT 4 mg Additional Source Comments Goals (unrecognized section and content) Goals may be documented in a n alternate section Care Team (unrecognized sect ion and content) Team Status: Active Member Role Status Dates Dr. Kacey Navarro MD Primary Care Provider Active Team Status: Inactive Member Role Status Dates Dr. Kacey Navarro MD Primary Care Provider Active Start: October 08, 2024 End: October 08, 2024 Dr. Kacey Navarro MD Attending Provider Active Start: October 08, 2024 End: October 08, 2024 Dr. Kacey Navarro MD Referring Provider Active Start: October 08, 2024 End: October 08, 2024 Team Status: Inactive Member Role Status Dates Dr. Kacey Navarro MD Primary Care Provider Active Start: November 18, 2024 End: November 18, 2024 Dr. Mauricio Morales MD Attending Provider Active Start: November 18, 2024 End: November 18, 2024 Dr. Mauricio Morales MD Referring Provider Active Start: November 18, 2024 End: November 18, 2024 Team Status: Active Member Role Status Dates Dr. Kacey Navarro MD Primary Care Provider Active Start: December 18, 2024 End: December 18, 2024 Dr. Prakash Ortega MD Attending Provider Active S tart: December 18, 2024 End: December 18, 2024 Dr. Justo Terry DO Referring Provider Active Start: December 18, 2024 End: December 18, 2024 Team Status: Inactive Member Role Status Dates Dr. Kacey Navarro MD Primary Care Provider Active Start: December 25, 2024 End: December 25, 2024 Dr. Justo Terry DO Attending Provider Active Start: December 25, 2024 End: December 25, 2024 Dr. Justo Terry DO Referring Provider Active Start: December 25, 2024 End: December 25, 2024 Chair Inspector Relationship Specialty Start Date End Date Rj Chaidez MD PCP - General Family Medicine 04/03/13 Chair Inspector Relationship Specialty Start Date End Date Rj Chaidez MD PCP - General Family Medicine 04/03/13 Chair Inspector Relationship Specialty Start Date End Date Rj Cahidez MD PCP - General Family Medicine 04/03/13 Team Status: Active Member Role Status Dates Dr. Rj Chaidez MD Family Provider Active Dr. Kacey Navarro MD Primary Care Provider Active Team Status: Inactive Member Role Status Dates Dr. Rj Chaidez MD Primary Care Provider, Referring Provider Active Dr. Chris Booker MD Attending Provider Active Team Status: Active Member Role Status Dates Dr. Kacey Navarro MD Primary Care Pr ovider, Referring Provider, Other Provider Active Dr. Prakash Ortega MD Attending Provider Active Team Status: Inactive Member Role Status Dates Dr. Kacey Navarro MD Primary Care Provider, Attend ing Provider Active Team Status: Active Member Role Status Dates Dr. Kacey Navarro MD Primary Care Pr ovider, Attending Provider, Referring Provider Active Chair Inspector Relationship Specialty Start Date End Date Kacey Navarro [address] [facility] [address] [place] [address] PCP - General Family Medicine 02/06/23 Team Status: Inactive Member Role Status Dates Dr. Rj Chaidez MD Referring Provider Active Dr. Chris Booker MD Attending Provider Active Dr. Kacey Navarro MD Primary Care Provider Active Team Status: Active Member Role Status Dates Dr. Kacey Navarro MD Primary Care Provider Active AFRICA ZARAGOZA Attending Provider, Referring Provider Active Team Status: Inactive Member Role Status Dates Dr. Kacey Navarro MD Primary Care Pr ovider, Attending Provider, Referring Provider Active Chair Inspector Relationship Specialty Start Date End Date Rj Chaidez MD PCP - General Family Medicine 04/03/13 02/05/23 Team Status: Active Member Role Status Dates Dr. Kacey Navarro MD Primary Care Provider Active [employer]. Dionne Sr Attending Provider, Referring Provid er Active Team Status: Inactive Member Role Status Dates Dr. Kacey Navarro MD Primary Care Provider Active [employer]. Dionne Sr Attending Provider, Referring Provid er Active Team Status: Inactive Member Role Status Dates Dr. Kacey Navarro MD Primary Care Provider, Referr ing Provider Active Dr. Chris Booker MD Attending Provider Active Team Status: Inactive Member Role Status Dates Dr. Kacey Navarro MD Primary Care Provider Active Start: January 13, 2025 End: January 13, 2025 Dr. Kacey Navarro MD Attending Provider Active Start: January 13, 2025 End: January 13, 2025 Dr. Kacey Nvaarro MD Referring Provider Active Start: January 13, 2025 End: January 13, 2025 Team Status: Inactive Member Role Status Dates Dr. Kacey Navarro MD Primary Care Provider Active Start: January 22, 2025 End: January 22, 2025 Dr. Kacey Navarro MD Referring Provider Active Start: January 22, 2025 End: January 22, 2025 Dr. Chris Booker MD Attending Provider Active Sta rt: January 22, 2025 End: January 22, 2025 Care Team (unrecognized sect ion and content) Care Team Personnel Name: RJ CHAIDEZ MD Member Role: Primary Care Physician Address: Address: [address] [place] [address] Care Team Related Persons Name: MICHAEL SIDDIQI Care Team Personnel Name: RJ CHAIDEZ MD Member Role: Primary Care Physician Address: Address: [address] [place] [address] Care Team Related Persons Name: MICHAEL SIDDIQI Care Team Personnel Name: RJ CHAIDEZ MD Member Role: Primary Care Physician Address: Address: [address] [place] [address] Care Team Related Persons Name: MICHAEL SIDDIQI Source Comments (unrecognize d section and content) In the event this informatio n is protected by the [facility] Confidentiality of Alcohol and Drug Abuse Patient Records regulations: The Federal rules restrict any use of the information to criminally investigate or prosecute any alcohol or drug abuse patient.[facility] the event this information is protected by the Federal Confidentiality of Alcohol and Drug Abuse Patient Records regulations: The Federal rules restrict any use of the information to criminally investigate or prosecute any alcohol or drug abuse patient.[facility] the event this information is protected by the Federal Confidentiality of Alcohol and Drug Abuse Patient Records regulations: The Federal rules restrict any use of the information to criminally investigate or prosecute any alcohol or drug abuse patient.[facility] the event this information is protected by the Federal Confidentiality of Alcohol and Drug Abuse Patient Records regulations: The Federal rules restrict any use of the information to criminally investigate or prosecute any alcohol or drug abuse patient.[facility] the event this information is protected by the Federal Confidentiality of Alcohol and Drug Abuse Patient Records regulations: The Federal rules restrict any use of the information to criminally investigate or prosecute any alcohol or drug abuse patient.[facility] Reason for Visit (unrecogniz ed section and content) Reason Comments Consult Colonoscopy last col onoscopy was 10/2019 Reason Comments Procedure Cancellation Reason Comments Patient Update Specialty Diagnoses / Procedures Referred By Anthony t Referred To Contact Diagnoses Spondylolisthesis of [...] FOR SPINE SURGERY [facility] [address] [place] [address] Referral ID Status Reason Start Date Expiration Date Visits Re quested Visits Authorized [id number] 1 (unrecognized sect ion and content) No Status Records FoundNo Status Records FoundNo Status Records FoundNo Status Records FoundNo Status Records Found INFORMATION SOURCE (unrecogn ized section and content) DATE CREATED AUTHOR 01/14/2023 [facility] ([place]) DATE CREATED AUTHOR AUTHOR'S ORGANIZ ATION 02/19/2023 [facility] nt DATE CREATED AUTHOR AUTHOR'S ORGANIZ ATION 02/19/2023 [facility] DATE CREATED AUTHOR AUTHOR'S ORGANIZ ATION 05/17/2025 [facility] DATE CREATED AUTHOR AUTHOR'S ORGANIZ ATION 05/26/2025 [facility] FOR RECORDS PERTAINING TO PATIENTS WHO [...] BE BASED ON THE PRIMARY CLINICAL RECORDS. [email or web address] [facility]. provides no warranty or guarantee of the accuracy or completeness of information in this document.
== END | disposition home or self-care (01) ==
PROVIDERS: PCP Family Medicine; Referring Provider Family Medicine; Visit Provider Family Medicine
DX: E04.1 Nontoxic single thyroid nodule (principal); R06.02 Shortness of breath
CPT/HCPCS: 76536

== ENCOUNTER → 2025-06-15 | Outpatient (CLI) | payer MEDICARE, SELFPAY ==
--- NOTE | 2025-06-15 06:45 | ECHOCS_ITS ---
Reason For Study Reason For Study: SOB, Fatigue Procedure This was a 2D Doppler, Color Flow transthoracic echocardiogram. The study was technically difficult. Patient scanned supine due to shoulder pain. Exam performed in department. Left Ventricle Normal left ventricle. The left ventricular ejection fraction is 65 %. Stage 1 diastolic dysfunction. No regional wall motion abnormalities noted. Right Ventricle Normal right ventricle. Normal systolic function. Atria Normal left atrium. Normal right atrium. Bubble contrast study is negative for PFO/ASD. Mitral Valve Normal mitral valve. Tricuspid Valve Normal tricuspid valve. Aortic Valve The aortic valve is not well visualized. Pulmonic Valve Normal pulmonic valve. Great Vessels The aortic root is not well visualized. The pulmonary artery is normal size. Inferior vena cava collapse with respiration. Pericardium/Pleural No pericardial effusion. Medication Performed a rapid injection of agitated mix of 9 cc saline and 1cc air to assess for atrial septal defect. Diluted definity 2.0ml given slow IV push to enhance endocardial definition. MMode/2D Measurements & Calculations LVIDd: 4.3 cm IVSd: 1.3 cm Ao root diam: 3.1 cm LVIDs: 2.8 cm LVPWd: 1.1 cm RVDd: 2.7 cm FS: 36.0 % LAV(MOD-bp): 12.7 ml LVAd ap4: 22.1 cm2 LVAd ap2: 19.4 cm2 LAV(MOD-bp) Indexed: 5.6 ml/m2 LVLd ap4: 6.9 cm LVLd ap2: 7.0 cm LAV(MOD-sp2): 12.7 ml EDV(MOD-sp4): 59.0 ml EDV(MOD-sp2): 45.1 ml LAV(MOD-sp4): 12.7 ml EDV(sp4-el): 60.5 ml EDV(sp2-el): 45.3 ml LVAs ap4: 11.8 cm2 LVAs ap2: 11.3 cm2 LVLs ap4: 6.0 cm LVLs ap2: 6.1 cm ESV(MOD-sp4): 19.8 ml ESV(MOD-sp2): 17.3 ml ESV(sp4-el): 19.8 ml ESV(sp2-el): 17.8 ml EF(MOD-sp4): 66.4 % EF(MOD-sp2): 61.7 % EF(sp4-el): 67.2 % SV(MOD-sp4): 39.2 ml SV(MOD-sp2): 27.8 ml SV(sp4-el): 40.7 ml SI(MOD-sp4): 17.2 ml/m2 SI(MOD-sp2): 12.2 ml/m2 LA A4 area: 8.0 cm2 LA dimension(2D): 2.9 cm RA A4 area: 8.5 cm2 TAPSE: 1.7 cm Time Measurements MV dec time: 0.30 sec Doppler Measurements & Calculations MV E max santiago: 66.9 cm/sec Lat Peak E' Santiago: 7.1 cm/sec Med Peak E' Santiago: 8.5 cm/sec MV A max santiago: 93.5 cm/sec E/E' lat: 9.4 E/E' med: 7.8 MV E/A: 0.71 MV dec slope: 225.2 cm/sec2 Ao V2 max: 127.7 cm/sec LV V1 max: 113.7 cm/sec Ao max P.5 mmHg LV V1 max P.2 mmHg Ao V2 mean: 91.2 cm/sec LV V1 mean P.0 mmHg Ao mean P.7 mmHg LV V1 mean: 81.8 cm/sec Ao V2 VTI: 20.3 cm LV V1 VTI: 19.4 cm AV (velocity ratio): 0.95 PA V2 max: 146.0 cm/sec ECHO/Echo Complete W/ Contrast Interpretation Summary Normal left ventricle. The left ventricular ejection fraction is 65 %. Normal left atrium. Bubble contrast study is negative for PFO/ASD. Stage 1 diastolic dysfunction. Contrast injection was performed. Ordering Physician: Tim Navarro Referring Physician: Tim Navarro Performed By: Anila Truong RDCS
--- OUTSIDE RECORDS SUMMARY | 2025-06-15 06:46 | XMS RPT_ITS | CCD ---
Author Organization [facility] Care Team Providers Care Partner Alliance Manager Name Role Phone RJ CHAIDEZ MD Primary Care Physician Dr. Rj Chaidez Primary Care Provider Dr. Rj Chaidez Referring Provider Dr. Chris Booker Attending Provider [phone] Rj Chaidez Primary Care Provider Dr. Rj Chaidez Referring Provider Dr. Chris Booker Attending Provider Rj Chaidez MD Primary Care Provider DR NIK LEGER DO Attending Dwight CHAIDEZ MD, RJ Primary Care Unavailable DM GARCIA, RJ Primary Care Unavailable PREBI RADIOLOGICAL TECHNOLOGIST, DEANNA Attending Sun CHAIDEZ MD, RJ Primary Care Unavailable BEREKET MENDEZ MD Attending Sun CHAIDEZ MD, RJ Primary Care Unavailable GEOVANNA GARCIA., KACEY uGzman Attending RJ Solorzano MD Primary Care Unavailable GEOVANNA GARCIA., KACEY Guzman Attending Unavailable DM GARCIA, RJ Primary Care Unavailable EDIE CHRIS DO Attending Unavailable DR NIK LEGER DO Attending Unavailtony CHAIDEZ MD, RJ Primary Care Unavailable Dr. Rj Chaidez Primary Care Provider Dr. Rj Chaidez Referring Provider Dr. Chris Booker Attending Provider Dr. Kacey Navarro Primary Care Provider Dr. Kacey Navarro Referring Provider Dr. Kacey Navarro Other Provider Dr. Prakash Ortega Attending Provider Kacey Navarro Primary Care Provider RJ CHAIDEZ Primary Care Unavailable NIK LEGER [...] GARCIA, Rj Winston Primary Care Provider [phone] Dr. Rj Chaidez Referring Provider Unavailable Dr. Chris Booker Attending Provider Dr. Kacey Navarro Primary Care Provider Dr. Kacey Navarro Primary Care Provider Dr. Kacey Navarro Referring Provider Dr. Chris Booker Attending Provider Dr. Kacey Navarro MD Primary Care Provider Dr. Kacey Navarro MD Attending Provider Dr. Kacey Navarro MD Referring Provider Dr. Mauricio Morales MD Attending Provider Dr. Mauricio Morales MD Referring Provider [phone] Dr. Prakash Ortega MD Attending Provider Dr. Justo Terry DO Referring Provider Dr. Justo Terry DO Attending Provider [phone] Dr. Chris Booker MD Attending Provider Dr. Kacey Navarro MD Primary Care Physician Dr. Kacey Navarro MD Attending Physician [phone] Dr. Kacey Navarro MD Referring Provider Chris Booker Attending Unavailable Schinner, Kacey E Referring Unavailable Schinner, Kacey E Primary Care Unavailable Prakash Ortega Attending Unavailable Justo Terry Referring Unavailable Schinner, Kacey E Primary Care Unavailable Chris Booker Attending Unavailable Schinner, Kacey E Primary Care Unavailable Schinner, Kacey E Referring Unavailable Schinner, Kacey E Primary Care Unavailable Schinner, Kacey E Attending Unavailable Schinner, Kacey E Primary Care Unavailable Schinner, Kacey E Attending Unavailable Schinner, Kacey E Referring Unavailable Schinner, Kacey E Attending Unavailable Schinner, Kacey E Referring Unavailable Schinner, Kacey E Primary Care Unavailable Schinner, Kacey E Attending Unavailable Schinner, Kacey E Referring Unavailable Schinner, Kacey E Primary Care Unavailable Justo Terry Attending Unavailable SpiJusto antonio Referring Unavailable Schinner, Kacey E Primary Care Unavailable Schinner, Kacey E Attending Unavailable Schinner, Kacey E Referring Unavailable Schinner, Kacey E Primary Care Unavailable SchinnerKacey E Attending Unavailable Schinner, Kacey E Primary Care Unavailable Schinner, Kacey E Referring Unavailable Mauricio Morales Attending Unavailable AndrewMauricio Referring Unavailable Schinner, Kacey E Primary Care Unavailable Schinner, Kacey E Primary Care Unavailable SchidanerKacey E Attending Unavailable Schinner, Kacey E Referring Unavailable Schinner, Kacey E Primary Care Unavailable Chris Booker Attending Unavailable Schinkeyana, Kacey E Referring Unavailable PHYSICIAN, NOT RECORDED Primary Care Physician U navailable JACQUIE ROMERO PA-C Attending Unavailable PHYSICIAN, NOT RECORDED Primary Care Unavaila JACQUIE Yan PA-C Attending Unavailable RJ CHAIDEZ MD Primary Care Unavailable Allergies Allergy Classification Reported Allergen(s) Allergy Type Date of Onset Reaction(s) Facility (20 sources) Doxycycline; Translations: [doxycycline] Drug Allergy Rash [facility] (7 sources) Penicillin; Translations: [penicillin] Drug Allergy [facility] (7 sources) Sulfonamides (Antibiotic); Translations: [sulfa drugs] Drug allergy [facility] (10 sources) fentaNYL Drug Allergy 2 Unknown [facility] (20 sources) Penicillins; Translations: [PENICILLINS] Allergy to substance 5 [facility] Work Phone: (11 sources) Sulfur; Translations: [sulfur] Drug Allergy 2 [facility] (16 sources) Tetracyclines; Translations: [Tetracyclines] Propensity to adverse reactions 2 Unknown [facility] (17 sources) exenatide; Translations: [exenatide] Drug Allergy 6 Nausea (finding), GI Upset [facility] (7 sources) Adhesive Tape; Translations: [ADHESIVE TAPE (ROSINS)] Propensity to adverse reactions to substance 4 Rash, Itching [facility] (7 sources) Grass pollen; Translations: [GRASS POLLEN] Drug Allergy 2 Other: See Comments [facility] Work Phone: (7 sources) Sulfonamides (Antibiotic); Translations: [SULFA (SULFONAMIDE ANTIBIOTICS)] Propensity to adverse reactions 5 [facility] Work Phone: (7 sources) Thiazides; Translations: [THIAZIDES] Drug Allergy 5 [facility] Work Phone: (7 sources) Tree; Translations: [TREES] Allergy to substance 2 Other: See Comments [facility] Work Phone: (7 sources) [place]; Translations: [GOLDENROD] Allergy to substance 2 Other: See Comments [facility] Work Phone: (6 sources) Adhesive Tape; Translations: [adhesive tape] Allergy to substance [address] [facility] (5 sources) Sulfonamides (Antibiotic) Allergy to substance [address] [facility] (1 source) Doxycycline Drug Allergy 5 [facility] (1 source) exenatide Drug Allergy 5 [facility] (1 source) fentaNYL Drug Allergy 4 [facility] (1 source) Sulfonamides (Antibiotic) Drug allergy (disorder) 5 [facility] Medications Current Medications Medication Drug Class(es) Dates Sig (Normalized) Sig (Original) acetaminophen 500 mg oral tablet (15 sources) Start: 04-21-2021 take 2 tablets by mouth three times daily Start: 04-21-2021 take 1 tablet by yan th every six hours as needed Acetaminophen (Tylenol Extra Strength) 500 mg tablet Active 500 mg PO EVERY 6 HOURS as needed April 21, 2021 12:00am [id number] 200 actuat albuter ol 0.09 mg/actuat metered dose inhaler (10 sources) beta2-Adrenergic Agonist Start: 12-15-2024 Start: 09-15-2019 albuterol HFA (PROVENTIL HFA, VENTOLIN [...] 07/23/19 Status: Ordered Start: 09-23-2010 End: 02-14-2023 aspirin 81 mg oral delayed r elease tablet Dose : 81 mg = 1 tab(s), Oral, Daily, 0 Refill(s) Start Date: 07/23/19 Status: Ordered Medication Dispense Status: Completed Total Allowed Fills: 1 Fills Dispensed: 0 Comment on above: Take one(1) tablet d aily. Take 81 mg by mouth once daily. DO NOT crush., to hold [address] Leger, to check with Dr Navarro atorvastatin 20 mg oral tablet (20 sources) HMG-CoA Reductase Inhibitor Start: 07-23-20 Lipitor 20 mg oral tablet Dose : 20 mg = 1 tab(s), Oral, Daily, 0 Refill(s) Start Date: 07/23/19 Status: Ordered Medication Dispense Status: Completed Total Allowed Fills: 1 Fills Dispensed: 0 Comment on above: Take 20 mg by mouth once daily. Take 20 mg by mouth daily at bedtime. Basaglar 100 unit(s)/mL 3 mL KwikPen (1 source) Start: 07-23-20 inject 1 dose by subcutaneous injection twice daily Basaglar 100 unit(s)/mL 3 mL KwikPen Dose : 45 unit(s) =, Subcutaneous, BID, 0 Refill(s) Start Date: 07/23/19 Status: Ordered Blood-Glucose Sensor (Dexcom G6 Sensor) device (15 sources) Start: 04-01-20 Blood-Glucose Sensor (Dexcom G6 Sensor) device Active 0 .ROUTE .MEDSUPPLY April 01, 2020 4:12pm As directed Start: 04-01-2020 End: 05-01-2023 Blood-Glucose Sensor (Dexcom G6 Sensor) device Discontinued 0 .ROUTE .MEDSUPPLY 9 April 01, 2020 12:00am May 01, 2023 2:54pm As directed Start: 04-01-2020 End: 05-01-2023 Blood-Glucose [...] 31, 2020 11:00pm As directed Blood-Glucose Sensor (Freest yle Vish 3 Plus Sensor) device (4 sources) Start: 01-12-2025 Blood-Glucose Sensor (Freestyle Vish 3 Plus Sensor) device Active 0 .Route 2 January 12, 2025 12:00am Diabetes mellitus Type 1 diabetes mellitus with diabetic chronic kidney disease Chronic kidney disease, stage 3a 1 sensor q 15 days Start: 01-12-2025 Blood-Glucose Sensor (Freestyle Vish 3 Plus Sensor) device Active 0 .Route 2 January 12, 2025 12:00am 1 sensor q 15 days cholecalciferol 0.125 mg ora l tablet (20 sources) Vitamin D Start: 12-15-2024 take 1 tablet by yan th once daily Start: 08-09-2021 End: 05-01-2023 take 1 capsule [...] propionate 0.05 mg/actuat metered dose nasal spray (17 sources) Corticosteroid Start: 10-15-2023 Start: 10-15-2023 Fluticasone Pr opionate Active 2 SPRAY INTRANASAL DAILY October 15, 2023 12:00am Start: 06-16-2021 take 1 dose nasal ro grayling twice daily fluticasone 50 mcg/inh NASAL spray Dose = 1 spray(s), Nostril, each, BID, 0 Refill(s) Start Date: 06/16/21 Status: Ordered Medication Dispense Status: Completed Total Allowed Fills: 1 Fills Dispensed: 0 Start: 10-16-2019 End: 01-30-2023 FLOVENT HFA 220 mcg/actuatio n inhaler fluticasone 50 mcg/inh NASAL spray (1 source) Start: 06-16-2021 take 1 dose nasal route twice daily fluticasone 50 mcg/inh NASAL spray Dose = 1 spray(s), Nostril, each, BID, 0 Refill(s) Start Date: 06/16/21 Status: Ordered 120 actuat formoterol fumarate 0.005 mg/actuat / mometasone furoate 0.2 mg/actuat metered dose inhaler (2 sources) Corticosteroid, beta2-Adrenergic Agonist Start: 12-15-2024 lisinopril 20 mg oral tablet (20 sources) Angiotensin Converting Enzyme Inhibitor Start: 05-01-2023 End: 10-15-2023 Lisinopril 10 mg tablet Discontinued 20 mg PO May 01, 2023 2:52pm [...] take 1 tablet by mouth once daily Comment on above: Take 10 mg by mouth once daily. Take 20 mg by mouth every morning. loratadine 10 mg oral tablet (20 sources) Start: take 1 dose by mouth once daily loratadine Dose : 10 mg =, Oral, qDay, 0 Refill(s) Start Date: 06/16/21 Status: Ordered Medication Dispense Status: Completed Total Allowed Fills: 1 Fills Dispensed: 0 Comment on above: Take by mouth. Take 10 mg by mouth every morning. methylPREDNISolone 4 mg oral tablet (1 source) Corticosteroid Start: End: Medrol Dosepak 4 mg oral tablet 1 packet(s), Oral, qDay, as directed on package labeling, X 6 day(s), # 21 tab(s), 0 Refill(s), 04/24/22 10:44:00 EDT, Pharmacy: [facility], Lumbar foraminal stenosis Lumbar radiculopathy, 167.6, cm, 04/18/22 10:19:00 EDT, Height Start Date: 04/18/22 Stop Date: 04/24/22 Status: Ordered Mometasone-Formoterol (Dulera) 200-5 mcg/actuation HFA aerosol inhaler (3 sources) Start: 025 Mometasone-Formoter ol (Dulera) 200-5 mcg/actuation HFA aerosol inhaler Active 2 NMA INHALATION TWICE A DAY December 15, 2024 12:00am Multivitamin (Daily Multi-Vitamin) tablet (15 sources) Start: take 1 tablet by mouth once daily Multivitamin (Daily Multi-Vitamin) tablet Active 1 TABLET PO DAILY April 01, 2020 10:50am Start: 04-01-2020 Start: 04-01-2020 Multivitamin ( Daily Multi-Vitamin) tablet [...] bedtime., # 75 mL, 3 Refill(s), Pharmacy: [facility], 167, cm, 11/04/19 15:51:00 EST, Height, kg, 11/04/19 15:51:00 EST, Dosing Weight Start Date: 11/04/19 Status: Ordered Zelienople-3 1000 mg oral capsule (7 sources) Start: 07-23-2019 Zelienople-3 1000 m g oral capsule Dose : 2,000 mg = 2 cap(s), Oral, BID, 0 Refill(s) Start Date: 07/23/19 Status: Ordered Medication Dispense Status: Completed Total Allowed Fills: 1 Fills Dispensed: 0 Start: 07-23-2019 Zelienople-3 1000 m g oral capsule Dose : 2,000 mg = 2 cap(s), Oral, BID, 0 Refill(s) Start Date: 07/23/19 Status: Ordered omega-3 acid ethyl esters (u sp) 1000 mg oral capsule (20 sources) Start: 06-16-2021 Lovaza 1000 mg oral capsule Dose : 1,000 mg = 1 cap(s), Oral, BID, # 90 cap(s), 0 Refill(s) Start Date: 06/16/21 Status: Ordered Medication Dispense Status: Completed Quantity: 90.0 Unit: cap(s) Total Allowed Fills: 1 Fills Dispensed: 0 Start: 04-01-2020 End: 07-15-2024 take 1 capsule by mouth once daily Zelienople-3 Acid Ethyl Esters (Lovaza) 1 gram capsule Discontinued 1 NMA PO DAILY April 01, 2020 12:00am July 15, 2024 4:26pm Start: 12-24-2013 End: 01-30-2023 take 2 capsules by mouth twice daily LOVAZA 1 gram capsule Indications: Other and unspecified hyperlipidemia Take 2 capsules by mouth twice daily. 360 capsule 3 12/24/2013 01/30/2023 Discontinued Comment on above: Take 2 capsules by [facility] twice daily. Zelienople-3 Fatty Acids 500 mg capsule (5 sources) Start: 12-15-2024 take 1 capsule by mouth twice daily Start: 12-15-2024 take 1 capsule by [facility] twice daily Zelienople-3 Fatty Acids 500 mg capsule Active 1000 mg PO TWICE A DAY December 15, 2024 12:00am omeprazole 20 mg delayed release oral capsule (20 sources) Proton Pump Inhibitor Start: 12-15-2024 take 1 capsule by mouth once daily as needed for gastroesophageal reflux disease Start: 10-15-2023 End: 07-15-2024 take 1 capsule [...] 15, 2023 4:25pm take 1 capsule by mo [facility] twice daily omeprazole (PRILOSEC) 20 mg capsule Take 20 mg by mouth twice daily. 0 Suspended Comment on above: Take 20 mg by mouth twice daily. Pen needles 8 mm (1 source) Start: 0 Pen needles 8 mm See Instructions, BD UF 8mm 31 G (short) qs 1 month supply, # 200 EA, 3 Refill(s), Pharmacy: [facility], 167, cm, 11/04/19 15:51:00 EST, Height, 116, kg, 11/04/19 15:51:00 EST, Dosing Weight Start Date: 11/04/19 Status: Ordered tadalafil 10 mg oral tablet (20 sources) Phosphodiesterase 5 Inhibitor Start: 4 take 20 mg by mouth once daily Tadalafil Active 20 MG PO DAILY October 15, 2023 12:00am Start: 04-21-2021 End: 05-01-2023 take 1 tablet by mouth once daily as needed Comment on above: Take 10 mg by mouth as needed. triamcinolone acetonide 0.00 5 mg/mg topical ointment (5 sources) Corticosteroid Start: 12-15-2024 ubidecarenone 100 mg oral capsule (20 sources) Start: 12-15-2024 Start: 04-21-2021 End: 10-15-2023 Coenzyme Q10 (Co [...] / HYDROcodone bitartrate 5 mg oral tablet (19 sources) Opioid Agonist Start: 05-09-2022 End: 01-02-2023 Hydrocodone-Acetami nophen 5-325 mg tablet Discontinued 1 {tbl} PO 0 May 09, 2022 12:00am January 02, 2023 3:05pm Start: 05-09-2022 End: 01-02-2023 Hydrocodone-Acetaminophen Di scontinued 1 TABLET PO May 08, 2022 11:00pm January 02, 2023 2:05pm Start: 04-18-2022 take 1 tablet by yan twice daily as needed for pain [place] 325- 5 mg oral tablet Dose = 1 tab(s), Oral, BID, PRN for pain, # 60 tab(s), 0 Refill(s), Pharmacy: [facility], Lumbar foraminal stenosis Lumbar radiculopathy, 167.6, cm, 04/18/22 10:19:00 EDT, Height, 112.6 Start Date: 04/18/22 Status: Ordered Medication Dispense Status: Completed Quantity: 60.0 Unit: tab(s) Total Allowed Fills: 1 Fills Dispensed: 0 Indications: Radiculopathy, lumbar region; Spinal stenosis, lumbar region without neurogenic claudication; Acetaminophen / oxyCODONE (1 source) Opioid Agonist take 1 tablet by mouth every twelve hours as needed oxyCODONE-acetaminophen (PERCOCET) 5325 mg per tablet Take 1 tablet by mouth twice daily as needed (pain). 5-325mg 0 Suspended Comment on above: Take 1 tablet by yan th twice daily as needed (pain). 5-325mg Blood-Glucose Meter,Continuous (Dexcom G6 Financial Service Representative) misc (20 sources) Start: 020 End: 021 Blood-Glucose Meter,Continuo us (Dexcom G6 Financial Service Representative) misc Discontinued 0 .ROUTE .MEDSUPPLY 1 April 01, 2020 3:11pm August 09, 2021 2:57pm As directed with sensor to monitor Glucose levels Start: 04-01-2020 End: 08-09-2021 Blood-Glucose Meter,Continuo us (Dexcom G6 Financial Service Representative) misc Discontinued 0 .ROUTE .MEDSUPPLY 1 April 01, 2020 4:11pm August 09, 2021 3:57pm As directed with sensor to monitor Glucose levels Start: 04-01-2020 End: 04-01-2020 Blood-Glucose Meter,Continuo us (Dexcom G6 Financial Service Representative) misc Discontinued 0 .ROUTE .MEDSUPPLY April 01, 2020 4:05pm April 01, 2020 4:14pm As directed with sensor to monitor Glucose levels Start: 04-01-2020 End: 04-01-2020 Blood-Glucose Meter,Continuo us (Dexcom G6 Financial Service Representative) misc Discontinued 0 .ROUTE .MEDSUPPLY 1 April 01, 2020 12:00am April 01, 2020 4:14pm As directed with sensor to monitor Glucose levels Start: 04-01-2020 End: 04-01-2020 Blood-Glucose Meter,Continuo us (Dexcom G6 Financial Service Representative) misc Discontinued 0 .ROUTE .MEDSUPPLY 1 March 31, 2020 11:00pm April 01, 2020 3:14pm As directed with sensor to monitor Glucose levels Blood-Glucose Transmitter (Dexcom G6 Transmitter) device (20 sources) Start: 04-01-2020 End: 08-09-2021 Blood-Glucose Transmitter (Dexcom G6 Transmitter) device Discontinued 0 .ROUTE .MEDSUPPLY 1 3 April 01, 2020 4:11pm August 09, 2021 [...] Transmitter) device Discontinued 0 .ROUTE .MEDSUPPLY 1 6 April 01, 2020 12:00am April 01, 2020 4:14pm As directed to monitor glucose levels Start: 04-01-2020 End: 04-01-2020 Blood-Glucose Transmitter (D excom G6 Transmitter) device Discontinued 0 .ROUTE .MEDSUPPLY 1 April 01, 2020 12:00am April 01, 2020 4:14pm As directed to monitor glucose levels Start: 04-01-2020 End: 04-01-2020 Blood-Glucose Transmitter (D excom G6 Transmitter) device Discontinued 0 .ROUTE .MEDSUPPLY 1 March 31, 2020 11:00pm April 01, 2020 3:14pm As directed to monitor glucose levels Blood-Glucose,Financial Service Representative,Cont (Dexcom G6 Financial Service Representative) misc (4 sources) Start: 04-01-2020 End: 08-09-2021 Blood-Glucose,Financial Service Representative,Cont (Dexcom G6 Financial Service Representative) misc Discontinued 0 .ROUTE .MEDSUPPLY 1 0 April 01, 2020 4:11pm August 09, 2021 3:57pm As directed with sensor to monitor Glucose levels Start: 04-01-2020 End: 04-01-2020 Blood-Glucose,Financial Service Representative,Cont (Dexcom G6 Financial Service Representative) misc Discontinued 0 .ROUTE .MEDSUPPLY 1 0 April 01, 2020 12:00am April 01, 2020 4:14pm As directed with sensor to monitor Glucose levels Budesonide-Formoterol (7 sources) Corticosteroid, beta2-Adrenergic Agonist Start: 10-15-2023 End: [...] Sodium-Glucose Cotransporter 2 Inhibitor Start: 02-28-20 End: 05-07-20 take 1 tablet by mouth once daily Dapagliflozin Propanediol (Farxiga) 10 mg tablet Discontinued 10 mg PO DAILY 90 1 May 07, 2025 12:59pm May 07, 2025 3:10pm empagliflozin 25 mg oral tablet (20 sources) Sodium-Glucose Cotransporter 2 Inhibitor Start: 04-01-20 End: 08-09-20 take 1 tablet by mouth once daily Empagliflozin (Jardiance) 25 mg tablet Discontinued 25 mg PO DAILY 90 May 30, 2021 9:35am August 09, 2021 3:24pm Flash Glucose Sensor (Freestyle Vish 14 Day Sensor) kit (15 sources) Start: 04-01-20 End: 04-01-20 Flash Glucose [...] 11:00pm April 01, 2020 3:08pm As directed Czxhtmybgup-Jnvtcoynf-Rbicjo er (12 sources) Anticholinergic, Corticosteroid, beta2-Adrenergic Agonist Start: 05-01-2023 End: 10-15-2023 Llpafxtpsdr-Fogsjxchw-Lyqqby er (Trelegy Ellipta) 100-62.5-25 mcg blister with device Discontinued 1 NMA INHALATION DAILY May 01, 2023 12:00am October 15, 2023 4:20pm Start: 05-01-2023 End: 10-15-2023 Rcbpxjiifjp-Iesycbsbq-Icwumj er (Trelegy Ellipta) 100-62.5-25 mcg blister with [...] by inhalation once daily in the evening mzzlxrwbyxn-iogdpwmhd-kqmfikcr (TRELEGY ELLIPTA) 100-62.5-25 mcg inhalation powder Inhale 1 Puff as instructed every evening. 0 Suspended Comment on above: Inhale 1 Puff as ins tructed every evening. ibuprofen 600 mg oral tablet (15 sources) Nonsteroidal Anti-inflammatory Drug Start: 1 End: 2 take 1 tablet by mouth every eight hours as needed Ibuprofen 600 mg tablet Discontinued 600 mg PO Q8H as needed April 21, 2021 12:00am May 09, 2022 3:23pm 3 ml insulin aspart, human 100 unt/ml pen injector (20 sources) Insulin Analog Start: 4 End: 5 Insulin Aspart U-100 (Novolog Flexpen U-100 Insulin) 100 unit/mL (3 mL) insulin pen Discontinued 20 U SC THREE TIMES A DAY 60 1 February 27, 2025 3:29pm March 30, 2025 4:04pm Start: 10-29-2023 End: 02-19-2025 Insulin Aspart (Niacinamide) (Fiasp Flextouch U-100 Insulin) 100 unit/mL (3 mL) insulin pen Discontinued 1 sliding scale dose SC THREE TIMES A DAY 60 3 April 04, 2024 5:02pm February 19, 2025 12:23pm May substitute any rapid analog insulin including aspart, lispro, Novolog, Humalog or Apidra. Start: 04-01-2020 End: 07-04-2022 Insulin Aspart U-100 (Novolo g Flexpen U-100 Insulin) 100 unit/mL (3 mL) insulin pen Discontinued 30 U SC THREE TIMES A DAY 120 2 June 27, 2022 4:06pm July 04, 2022 [...] bedtime., # 75 mL, 3 Refill(s), Pharmacy: [facility], 167, cm, 11/04/19 15:51:00 EST, Height, kg, 11/04/19 15:51:00 EST, Dosing Weight Start Date: 11/04/19 Status: Ordered Medication Dispense Status: Completed Quantity: 75.0 Unit: mL Total Allowed Fills: 4 Fills Dispensed: 0 Start: 12-05-2015 End: 02-13-2023 insulin aspart (NOVOLOG FLEX PEN) 100 unit/mL inpn Indications: Type 2 diabetes mellitus without complication (HCC) Inject 20 units sc at breakfast, 25 units at lunch, 30 units at supper. 5 Pen 0 12/05/2015 02/13/2023 Discontinued Comment on above: Inject 20 units sc a t breakfast, 25 units at lunch, 30 units at supper. 3 ml insulin glargine 100 unt/ml pen injector (20 sources) Insulin Analog Start: 04-01-2020 End: 07-04-2022 Insulin Glargine (Basaglar Kwikpen U-100 Insulin) 100 unit/mL (3 mL) insulin pen Discontinued 80 U SC DAILY 75 2 June 05, 2022 8:24am July 04, 2022 [...] 0 Refill(s) Start Date: 07/23/19 Status: Ordered Medication Dispense Status: Completed Total Allowed Fills: 1 Fills Dispensed: 0 Start: 12-05-2015 End: 01-30-2023 insulin glargine (LANTUS) [...] injector (20 sources) Insulin Start: 10-15-2023 End: 03-30-2025 Insulin Regular Hum U-500 Conc (Humulin R U-500 (Conc) Kwikpen) 500 unit/mL (3 mL) insulin pen Discontinued 90 U SC THREE TIMES A DAY 48 3 March 27, 2025 7:25am March 30, 2025 4:05pm with meals only Start: 07-04-2022 End: 10-15-2023 inject 30 [IU] by subcutaneous injection three times daily before mealtime, then inject 60 [IU] by subcutaneous injection before mealtime, then inject 90 [IU] by subcutaneous injection before mealtime Insulin Regular Hum U-500 Conc (Humulin R U-500 (Conc) Kwikpen) 500 unit/mL (3 mL) insulin pen Discontinued 0 SC THREE TIMES A DAY 33 3 October 03, 2023 5:47pm October 15, 2023 [...] 01, 2023 2:53pm Start: 01-17-2022 End: 07-04-2022 meloxicam 7.5 mg oral tablet Dose : 7.5 mg = 1 tab(s), Oral, qDay, # 30 tab(s), 0 Refill(s) Start Date: 03/14/22 Status: Ordered Medication Dispense Status: Completed Quantity: 30.0 Unit: tab(s) Total Allowed Fills: 1 Fills Dispensed: 0 Comment on above: Take 15 mg by mouth once daily. multivitamin ORAL tablet (5 sources) Start: 09-23-2010 take 1 tablet by mouth once daily, then take 1 tablet by mouth every other week multivitamin ORAL tablet Take 1 tablet by mouth once daily. Last dose over 2 weeks prior to surgery 0 09/23/2010 Active Start: 09-23-2010 take 1 tablet by yan once daily, then take 1 tablet by [...] to surgery nabumetone 750 mg oral tablet (14 sources) Nonsteroidal Anti-inflammatory Drug Start: 07-04-2022 End: 01-02-2023 Nabumetone 750 mg tablet Discontinued NMA PO July 04, 2022 12:00am January 02, 2023 3:06pm Start: 07-04-2022 End: 01-02-2023 Nabumetone Discontinued TAB PO July 03, 2022 11:00pm January 02, 2023 2:06pm Zelienople-3 Fatty Acids 500 mg cap (5 sources) End: 02-14-2023 take 1 capsule by mouth twice daily Zelienople-3 Fatty Acids 500 mg cap Take 1,000 mg by mouth twice daily. 0 02/14/2023 Discontinued take 1 capsule by mouth twice da natalia Zelienople-3 Fatty Acids 500 mg cap Take 1,000 mg by mouth twice daily. 0 Suspended take 1 capsule by mouth twice da natalia Zelienople-3 Fatty Acids 500 mg cap Take 1,000 mg by mouth twice daily. 0 Active Comment on above: Take 1,000 mg by yan th twice daily. polyethylene glycol [id number] [id number] mg / potassium chloride 2970 mg / sodium bicarbonate 6740 mg / sodium chloride 5860 mg / sodium sulfate 49857 mg powder for oral solution (1 source) [...] mg by mouth three times daily. Tirzepatide (2 sources) Start: 10-15-2023 End: 11-12-2023 Tirzepatide (Mounjaro) 2.5 mg/0.5 mL pen injector Discontinued 2.5 mg SC EVERY WEEK 2 28 0 October 15, 2023 1:00am November 11, 2023 1:00am November 12, 2023 1:04am Tirzepatide (Mounjaro) 2.5 mg/0.5 mL pen injector [...] hyperlipidemia; Translations: [Mixed hyperlipidemia] Chronic Esophageal disorders (5 sources) Gastroesophageal reflux disease 03-14-2022 Chronic Essential [...] of breath; Translations: [Shortness of breath] Onset: 06-03-2025 Episodic Other male genital disorders (5 sources) Secondary erectile dysfunction; Translations: [Male erectile dysfunction, unspecified] Onset: 08-26-2005 08-31-2010 Chronic Other nervous system disorders (15 sources) Acroparesthesia; Translations: [Paresthesia of skin] 04-21-2021 Episodic Other non-traumatic joint disorders (1 source) Osteophyte, vertebrae; 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] Onset: 02-13-2023 Chronic Other nutritional; endocrine; and metabolic disorders (15 sources) Obesity; Translations: [Obesity, unspecified] 07-06-2020 Chronic [...] pain] Onset: 05-08-2013 03-14-2022 Episodic Thyroid disorders (2 sources) Nontoxic single thyroid nodule; Translations: [Nontoxic single thyroid nodule] Onset: 07-16-2024 Chronic Past or Other Problems Problem Classification Problem Date Documented Da te Episodic/Chronic Other aftercare (5 sources) Long-term current use of insulin; 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] Onset: 09-15-2015 09-15-2015 Episodic Other aftercare (1 source) care home (current) use of insulin; Translations: [Type 2 diabetes mellitus with diabetic autonomic neuropathy, with long-term current use of insulin (HCC)] Onset: 09-05-2021 Episodic Other screening for suspected conditions (not mental disorders or infectious disease) (5 sources) Patient encounter status; Translations: [Encounter for screening for malignant neoplasm of colon] Onset: 01-15-2023 Episodic Sprains and strains (9 sources) Strain of muscle(s) and tendon(s) of the rotator cuff of right shoulder, initial encounter; Translations: [Sprain of shoulder] Onset: 11-24-2024 Episodic Results Test Name Value Interpretation Reference Range Facility Thyroidon 05-26-2025 Thyroid [facility] Services [address], [place] [id number] Thyroid MR#: [id number] Acct: [id number] Name: VLAD SIDDIQI Rep #: [id number] : 1960 M 65 From: Gabriel bedoya MD PCP: Dr. Kacey Navarro MD Status: REG CLI Study: Thyroid Date of Exam: 05/26/25 Exam# [id number] Ordering Dr: Kacey Navarro MD PROCEDURE: THYROID 05/26/2025 REASON FOR EXAM: NODULE TECHNIQUE: Procedure Code: USTHY Modality: US Procedure: THYROID COMPARISON: Previous exam dated February 05, 2024 FINDINGS: Right thyroid lobe size: 5 x 2.1 x 2.5 cm Left thyroid lobe size: 2.8 x 1.3 x 1.2 cm Isthmus: 0.4 cm Background parenchymal echotexture is heterogeneous echo architecture Nodules: 1. Lobe: Right, Location: Mid, Size: 0.3 cm, Stability: New Composition: Cystic or mostly cystic (+0) Echogenicity: Anechoic (+0) Margin: Smooth (+0) Shape: Wider than tall (+0) Echogenic Foci: None (+0) TI-RADS: 1 Cystic nodule noted previously in the inferior lobe of the right thyroid gland has resolved. US/Thyroid IMPRESSION: Heterogeneous thyroid gland with no solid nodule. 3 previously described cystic nodule in the right inferior thyroid lobe has resolved. A new tiny 3 mm nonspecific cystic nodule is seen in the right midgland. TI-RADS 1. No suspicious nodule to recommend follow-up. Reading Location: [facility] CC: Dr. Kacey Navarro MD Development Manager: Signed Normal [facility] Absolute lymphocyte countOrd ered By: Kacey Navarro on 05-19-2025 Lymphocytes Auto (Unsp spec) [#/Vol] 1.59 10*3/uL 0.83-4.51 [facility] Absolute neutrophil countOrd ered By: Kacey Navarro on 05-19-2025 Neutrophils (Bld) [#/Vol] 2.8 10*3/uL 2.0-7.7 [facility] Anion gap in Serum or Plasma Ordered By: Kacey Navarro on 05-19-2025 Anion gap [Moles/Vol] 11 mmol/L 5-15 [facility] Automated lymphocyte count a s percentage of total leukocytesOrdered By: Kacey Navarro on 05-19-2025 Lymphocytes/100 WBC Auto (Unsp spec) 31.7 % 19-41 [facility] BUN/creatinine ratioOrdered By: Kacey Navarro on 05-19-2025 Urea nitrogen/Creatinine [Mass ratio] 19.2 mg/mg 10-20 [facility] Basophil percentageOrdered B y: Kacey Navarro on 05-19-2025 Basophils/100 WBC (Bld) 1.0 % 0-1 [facility] Bilirubin Test strip Ql (U)O rdered By: Kacey Navarro on 05-19-2025 Bilirubin Ql (U) Negative Negative [facility] Bilirubin, totalOrdered By: Kacey Navarro on 05-19-2025 Bilirubin [Mass/Vol] 0.56 mg/dL 0.00-1.30 [facility] CBC W/Diff, Automatedon Absolute Lymph 1.59 X10 3/uL Normal 0.83-4.51 [facility] Comment on above: Order Comment: Order Date: 05/19/25 Order Info: 0184-1 - CBCD Performed By: #### L 100.0100, L500.4100, L500.4050, L509.1000 #### [facility] [address] [place], [address] Absolute Neut 2.8 X10 3/uL Normal 2.0-7.7 [facility] Comment on above: Order Comment: Order Date: 05/19/25 Order Info: 0184-1 - CBCD Performed By: #### L 100.0100, L500.4100, L500.4050, L509.1000 #### [facility] [address] [place], [address] Basophils/100 WBC (Bld) 1.0 % Normal 0-1 [facility] Comment on above: Order Comment: Order Date: 05/19/25 Order Info: 0184-1 - CBCD Performed By: #### L 100.0100, L500.4100, L500.4050, L509.1000 #### [facility] [address] [place], [address] Eosinophils/100 WBC (Bld) 3.2 % Normal 0-5 [facility] Comment on above: Order Comment: Order Date: 05/19/25 Order Info: 0184-1 - CBCD Performed By: #### L 100.0100, L500.4100, L500.4050, L509.1000 #### [facility] [address] [place], [address] Erythrocyte distribution width (RBC) [Ratio] 12.2 % Normal 11.6-14.6 [facility] Comment on above: Order Comment: Order Date: 05/19/25 Order Info: 0184-1 - CBCD Performed By: #### L 100.0100, L500.4100, L500.4050, L509.1000 #### [facility] [address] [place], [address] Hematocrit (Bld) [Volume fraction] 45.9 % Normal 40-54 [facility] Comment on above: Order Comment: Order Date: 05/19/25 Order Info: 0184-1 - CBCD Performed By: #### L 100.0100, L500.4100, L500.4050, L509.1000 #### [facility] [address] [place], [address] Hemoglobin (Bld) [Mass/Vol] 15.3 g/dL Normal 13.0-16.5 [facility] Comment on above: Order Comment: Order Date: 05/19/25 Order Info: 0184- - CBCD Performed By: #### L 100.0100, L500.4100, L500.4050, L509.1000 #### [facility] [address] [place], [address] IG% 0.200 Normal 0.0-0.9 [facility] Comment on above: Order Comment: Order Date: 05/19/25 Order Info: [id number] - CBCD Result Comment: IG% - Immature Granulocytes (promyelocytes, myelocytes and metamyelocytes) > 1% indicates that a LEFT SHIFT is Present. Performed By: #### L 100.0100, L500.4100, L500.4050, L509.1000 #### [facility] [address] [place], [address] Lymphocytes/100 WBC (Bld) 31.7 % Normal 19-41 [facility] Comment on above: Order Comment: Order Date: 05/19/25 Order Info: 0184- - CBCD Performed By: #### L 100.0100, L500.4100, L500.4050, L509.1000 #### [facility] [address] [place], [address] MCH (RBC) [Entitic mass] 31.4 pg Normal 27.0-32.0 [facility] Comment on above: Order Comment: Order Date: 05/19/25 Order Info: 0184- - CBCD Performed By: #### L 100.0100, L500.4100, L500.4050, L509.1000 #### [facility] [address] [place], [address] MCHC (RBC) [Mass/Vol] 33.3 g/dL Normal 32-36 [facility] Comment on above: Order Comment: Order Date: 05/19/25 Order Info: 0184-1 - CBCD Performed By: #### L 100.0100, L500.4100, L500.4050, L509.1000 #### [facility] [address] [place], [address] MCV (RBC) [Entitic vol] 94.1 fL High 80-94 [facility] Comment on above: Order Comment: Order Date: 05/19/25 Order Info: 0184-1 - CBCD Performed By: #### L 100.0100, L500.4100, L500.4050, L509.1000 #### [facility] [address] [place], [address] Monocytes/100 WBC (Bld) 8.6 % Normal 0-10 [facility] Comment on above: Order Comment: Order Date: 05/19/25 Order Info: 0184-1 - CBCD Performed By: #### L 100.0100, L500.4100, L500.4050, L509.1000 #### [facility] [address] [place], [address] Neutrophils/100 WBC (Bld) 55.3 % Normal 47-70 [facility] Comment on above: Order Comment: Order Date: 05/19/25 Order Info: 0184-1 - CBCD Performed By: #### L 100.0100, L500.4100, L500.4050, L509.1000 #### [facility] [address] [place], [address] Nucleated RBC (Bld) [#/Vol] 0 10*3/uL Normal 0-5 [facility] Comment on above: Order Comment: Order Date: 05/19/25 Order Info: 0184-1 - CBCD Performed By: #### L 100.0100, L500.4100, L500.4050, L509.1000 #### [facility] [address] [place], [address] Platelet mean volume (Bld) [Entitic vol] 8.7 fL Normal 6.2-12.0 [facility] Comment on above: Order Comment: Order Date: 05/19/25 Order Info: 0184-1 - CBCD Performed By: #### L 100.0100, L500.4100, L500.4050, L509.1000 #### [facility] [address] [place], [address] Platelets (Bld) [#/Vol] 197 10*3/uL Normal 150-450 [facility] Comment on above: Order Comment: Order Date: 05/19/25 Order Info: 0184-1 - CBCD Performed By: #### L 100.0100, L500.4100, L500.4050, L509.1000 #### [facility] [address] [place], [address] RBC (Bld) [#/Vol] 4.88 10*6/uL Normal 4.6-6.2 [facility] Comment on above: Order Comment: Order Date: 05/19/25 Order Info: 0184-1 - CBCD Performed By: #### L 100.0100, L500.4100, L500.4050, L509.1000 #### [facility] [address] [place], [address] RDW SD 42.6 fl Normal 35.1-43.9 [facility] Comment on above: Order Comment: Order Date: 05/19/25 Order Info: 0184-1 - CBCD Performed By: #### L 100.0100, L500.4100, L500.4050, L509.1000 #### [facility] [address] [place], [address] WBC (Bld) [#/Vol] 5.0 10*3/uL Normal 4.4-11.[address] [facility] Comment on above: Order Comment: Order Date: 05/19/25 Order Info: 0184-1 - CBCD Performed By: #### L 100.0100, L500.4100, L500.4050, L509.1000 #### [facility] [address] [place], [address] Calculated very low density lipoprotein (VLDL) cholesterol measurementOrdered By: Kacey Navarro on 05-19-2025 Calculated very low density lipoprotein (VLDL) cholesterol measurement 28 mg/dL 5-40 [facility] Carbon dioxide, total [Moles /volume] in Central venous bloodOrdered By: Kacey Navarro on 05-19-2025 CO2 [Moles/Vol] 23.7 mmol/L 21.0-32.0 [facility] Chloride assayOrdered By: Gogo Navarro on 05-19-2025 Chloride [Moles/Vol] 106 mmol/L 98-108 [facility] Comprehensive Metabolic Prof ilon 05-19-2025 Albumin [Mass/Vol] 4.3 g/dL Normal 3.4-4.[address] [facility] Comment on above: Order Comment: Order Date: 05/19/25 Order Info: 0786-1 - CMP Order Info: [id number] - LIPID Performed By: #### L 100.0100, L500.4100, L500.4050, L509.1000 #### [facility] [address] [place], [address] Albumin/Globulin [Mass ratio] 1.6 {ratio} Normal 0.9-2.4 [facility] Comment on above: Order Comment: Order Date: 05/19/25 Order Info: 0786-1 - CMP Order Info: [id number] - LIPID Performed By: #### L 100.0100, L500.4100, L500.4050, L509.1000 #### [facility] [address] [place], [address] ALK PHOS 57 U/L Normal 40-129 [facility] Comment on above: Order Comment: Order Date: 05/19/25 Order Info: 0786-1 - CMP Order Info: [id number] - LIPID Performed By: #### L 100.0100, L500.4100, L500.4050, L509.1000 #### [facility] [address] [place], [address] ALT [Catalytic activity/Vol] 44 U/L Normal <=46 [facility] Comment on above: Order Comment: Order Date: 05/19/25 Order Info: 07-1 - CMP Order Info: [id number] - LIPID Performed By: #### L 100.0100, L500.4100, L500.4050, L509.1000 #### [facility] [address] [place], [address] AST [Catalytic activity/Vol] 29 U/L Normal <=37 [facility] Comment on above: Order Comment: Order Date: 05/19/25 Order Info: 0786- - CMP Order Info: [id number] - LIPID Performed By: #### L 100.0100, L500.4100, L500.4050, L509.1000 #### [facility] [address] [place], [address] Bilirubin [Mass/Vol] 0.56 mg/dL Normal 0.00-1.30 [facility] Comment on above: Order Comment: Order Date: 05/19/25 Order Info: 0786-1 - CMP Order Info: [id number] - LIPID Performed By: #### L 100.0100, L500.4100, L500.4050, L509.1000 #### [facility] [address] [place], [address] BUN/CRE 19.2 RATIO Normal 10-20 [facility] Comment on above: Order Comment: Order Date: 05/19/25 Order Info: 0786-1 - CMP Order Info: [id number] - LIPID Performed By: #### L 100.0100, L500.4100, L500.4050, L509.1000 #### [facility] [address] [place], [address] Calcium [Mass/Vol] 10.0 mg/dL Normal 7.6-11.[address] [facility] Comment on above: Order Comment: Order Date: 05/19/25 Order Info: 0786- - CMP Order Info: [id number] - LIPID Performed By: #### L 100.0100, L500.4100, L500.4050, L509.1000 #### [facility] [address] [place], [address] Chloride [Moles/Vol] 106 mmol/L Normal 98-108 [facility] Comment on above: Order Comment: Order Date: 05/19/25 Order Info: 0786 - CMP Order Info: [id number] - LIPID Performed By: #### L 100.0100, L500.4100, L500.4050, L509.1000 #### [facility] [address] [place], [address] CO2 [Moles/Vol] 23.7 mmol/L Normal 21.0-32.0 [facility] Comment on above: Order Comment: Order Date: 05/19/25 Order Info: 0786- - CMP Order Info: [id number] - LIPID Performed By: #### L 100.0100, L500.4100, L500.4050, L509.1000 #### [facility] [address] [place], [address] Creatinine [Mass/Vol] 1.28 mg/dL High 0.70-1.20 [facility] Comment on above: Order Comment: Order Date: 05/19/25 Order Info: 0786- - CMP Order Info: [id number] - LIPID Performed By: #### L 100.0100, L500.4100, L500.4050, L509.1000 #### [facility] [address] [place], [address] GAP 11 Normal 5-15 [facility] Comment on above: Order Comment: Order Date: 05/19/25 Order Info: 0786- - CMP Order Info: [id number] - LIPID Performed By: #### L 100.0100, L500.4100, L500.4050, L509.1000 #### [facility] [address] [place], [address] GFR/1.73 sq M.predicted among non-blacks MDRD (S/P/Bld) [Vol rate/Area] 62 mL/min/{1.73_m2} Normal >60 [facility] Comment on above: Order Comment: Order Date: 05/19/25 Order Info: 07 - CMP Order Info: [id number] - LIPID Result Comment: mL/m in/1.73m2 CKD-EPI Creatinine Equation (2020) Performed By: #### L 100.0100, L500.4100, L500.4050, L509.1000 #### [facility] [address] [place], [address] Globulin (S) [Mass/Vol] 2.7 g/dL Normal 2.2-4.2 [facility] Comment on above: Order Comment: Order Date: 05/19/25 Order Info: 0786- - CMP Order Info: [id number] - LIPID Performed By: #### L 100.0100, L500.4100, L500.4050, L509.1000 #### [facility] [address] [place], [address] Glucose [Mass/Vol] 143 mg/dL High 70-[address] [facility] Comment on above: Order Comment: Order Date: 05/19/25 Order Info: 0786- - CMP Order Info: [id number] - LIPID Performed By: #### L 100.0100, L500.4100, L500.4050, L509.1000 #### [facility] [address] [place], [address] Potassium [Moles/Vol] 4.1 mmol/L Normal 3.3-5.1 [facility] Comment on above: Order Comment: Order Date: 05/19/25 Order Info: 0786-1 - CMP Order Info: [id number] - LIPID Performed By: #### L 100.0100, L500.4100, L500.4050, L509.1000 #### [facility] [address] [place], [address] Sodium [Moles/Vol] 141 mmol/L Normal 133-[address] [facility] Comment on above: Order Comment: Order Date: 05/19/25 Order Info: 0786- - CMP Order Info: [id number] - LIPID Performed By: #### L 100.0100, L500.4100, L500.4050, L509.1000 #### [facility] [address] [place], [address] T PROT 7.0 g/dL Normal 5.9-8.4 [facility] Comment on above: Order Comment: Order Date: 05/19/25 Order Info: 0786- - CMP Order Info: [id number] - LIPID Performed By: #### L 100.0100, L500.4100, L500.4050, L509.1000 #### [facility] [address] [place], [address] Urea nitrogen [Mass/Vol] 25 mg/dL High 4-19 [facility] Comment on above: Order Comment: Order Date: 05/19/25 Order Info: 0786-1 - CMP Order Info: [id number] - LIPID Performed By: #### L 100.0100, L500.4100, L500.4050, L509.1000 #### [facility] [address] [place], [address] Eosinophil percentageOrdered By: Kacey Navarro on 05-19-2025 Eosinophils/100 WBC (Bld) 3.2 % 0-5 [facility] Erythrocyte distribution wid th ratioOrdered By: Kacey Navarro on 05-19-2025 Erythrocyte distribution width (RBC) [Ratio] 12.2 % 11.6-14.6 [facility] Erythrocyte distribution wid th standard deviationOrdered By: Kacey Navarro on 05-19-2025 Erythrocyte distribution width (RBC) [Ratio] 42.6 fl 35.1-43.9 [facility] Glomerular filtration rate ( GFR) estimation/1.73 sq m using serum, plasma, or whole bOrdered By: Kacey Navarro on 05-19-2025 GFR/1.73 sq M.predicted among non-blacks MDRD (S/P/Bld) [Vol rate/Area] 62 mL/min/{1.73_m2} >60 [facility] Comment on above: mL/min/1.73m2 CKD-EP I Creatinine Equation (2020) Hematocrit Auto (Bld) [Volum e fraction]Ordered By: Kacey Navarro on 05-19-2025 Hematocrit (Bld) [Volume fraction] 45.9 % 40-54 [facility] Hemoglobin measurementOrdere d By: Kacey Navarro on 05-19-2025 Hemoglobin (Bld) [Mass/Vol] 15.3 g/dL 13.0-16.5 [facility] Immature granulocytes/100 WB C Auto (Bld)Ordered By: Kacey Navarro on 05-19-2025 Immature granulocytes/100 WBC (Bld) 0.200 % 0.0-0.9 [facility] Comment on above: IG% - Immature Granu locytes (promyelocytes, myelocytes and metamyelocytes) > 1% indicates that a LEFT SHIFT is Present. Ketones Test strip Ql (U)Ord ered By: Kacey Navarro on 05-19-2025 Ketones Ql (U) Negative Negative [facility] LDL calc ser/plasOrdered By: Kacey Navarro on 05-19-2025 Cholesterol in LDL [Mass/Vol] 64 mg/dL [facility] Comment on above: Ohslooatyn=879-452 m g/dL & Higher Lbqw=186 mg/dL or greaterFriedwald Equation for LDL-C Laboratory - Chemistry and C hemistry - challengeOrdered By: Kacey Navarro on 05-19-2025 AST [Catalytic activity/Vol] 29 U/L <38 [facility] Lipid Profileon 05-19-2025 CHOL:HDL 2.73 Normal [facility] Comment on above: Order Comment: Order Date: 05/19/25 Order Info: 0786-1 - CMP Order Info: [id number] - LIPID Performed By: #### L 100.0100, L500.4100, L500.4050, L509.1000 #### [facility] [address] [place], [address] Cholesterol [Mass/Vol] 145 mg/dL Normal <=200 [facility] Comment on above: Order Comment: Order Date: 05/19/25 Order Info: 0786-1 - CMP Order Info: [id number] - LIPID Result Comment: Chol esterol level, Desirable <200 mg/dL Borderline high cholesterol 200-239 mg/dL High cholesterol >=240 mg/dL Recommendations of the NCEP Adult Treatment Panel for the following risk-cutoff thresholds for the [place] population. Performed By: #### L 100.0100, L500.4100, L500.4050, L509.1000 #### [facility] [address] [place], [address] Cholesterol in HDL [Mass/Vol] 53 mg/dL Normal [facility] Comment on above: Order Comment: Order Date: 05/19/25 Order Info: 0786-1 - CMP Order Info: [id number] - LIPID Result Comment: Diandra onal Cholesterol Education Program (NCEP) guidelines: <40 mg/dL: Low HDL-cholesterol (major risk factor for CHD) >= 60 mg/dL: High HDL-cholesterol (negative risk factor for CHD) HDL-cholesterol is affected by a number of factors, e.g. smoking, exercise, hormones, sex and age. Performed By: #### L 100.0100, L500.4100, L500.4050, L509.1000 #### [facility] [address] [place], [address] Cholesterol in LDL [Mass/Vol] 64 mg/dL Normal [facility] Comment on above: Order Comment: Order Date: 05/19/25 Order Info: 0786-1 - CMP Order Info: [id number] - LIPID Result Comment: Bord zlyysu=769-507 mg/dL Higher Yxym=573 mg/dL or greater Friedwald Equation for LDL-C Performed By: #### L 100.0100, L500.4100, L500.4050, L509.1000 #### [facility] [address] [place], [address] Cholesterol in VLDL [Mass/Vol] 28 mg/dL Normal 5-40 [facility] Comment on above: Order Comment: Order Date: 05/19/25 Order Info: 0786-1 - CMP Order Info: [id number] - LIPID Performed By: #### L 100.0100, L500.4100, L500.4050, L509.1000 #### [facility] [address] [place], [address] Triglyceride [Mass/Vol] 141 mg/dL Normal [facility] Comment on above: Order Comment: Order Date: 05/19/25 Order Info: 0786-1 - CMP Order Info: [id number] - LIPID Result Comment: The drugs N-Acetylcysteine and Metamizole may falsely depress this assay. Normal range: <150 mg/dL Borderline High: 150-199 mg/dL High: 200-499 mg/dL Very High: >500 mg/dL Performed By: #### L 100.0100, L500.4100, L500.4050, L509.1000 #### [facility] [address] [place], [address] MCV (mean corpuscular volume ) determinationOrdered By: Kacey Navarro on 05-19-2025 MCV (RBC) [Entitic vol] 94.1 fL High 80-94 [facility] Mean corpuscular hemoglobin (MCH) determinationOrdered By: Kacey Navarro on 05-19-2025 MCH (RBC) [Entitic mass] 31.4 pg 27.0-32.0 [facility] Mean corpuscular hemoglobin concentration (MCHC) determinationOrdered By: Kacey Navarro on 05-19-2025 MCHC (RBC) [Mass/Vol] 33.3 g/dL 32-36 [facility] Mean platelet volume determi nationOrdered By: Kacey Navarro on 05-19-2025 Platelet mean volume (Bld) [Entitic vol] 8.7 fL 6.2-12.0 [facility] Microscopic analysis of urin e for red blood cells (RBC)Ordered By: Kacey Navarro on 05-19-2025 Microscopic analysis of urine for red blood cells (RBC) 0 SEEN /hpf 0-5 [facility] Monocyte percentageOrdered B y: Kacey Navarro on 05-19-2025 Monocytes/100 WBC (Bld) 8.6 % 0-10 [facility] Mucus LM Ql (Urine sed)Order ed By: Kacey Navarro on 05-19-2025 Mucus Ql (Urine sed) 0 SEEN /hpf [facility] Neutrophil percentageOrdered By: Kacey Navarro on 05-19-2025 Neutrophils/100 WBC (Bld) 55.3 % 47-70 [facility] Nitrite Test strip Ql (U)Ord ered By: Kacey Navarro on 05-19-2025 Nitrite Ql (U) Negative Negative [facility] Nucleated red blood cell per centageOrdered By: Kacey Navarro on 05-19-2025 Nucleated RBC/100 WBC (Bld) [Ratio] 0 % 0-5 [facility] PTHINon 05-19-2025 PTH 21 pg/mL Normal 11-61 [facility] Comment on above: Order Comment: Order Date: 05/19/25 Order Info: 0565-1 - PTHIN Performed By: #### L 100.0100, L500.4100, L500.4050, L509.1000 #### [facility] [address] [place], [place], [id number] Platelet countOrdered By: Gogo Navarro on 05-19-2025 Platelets (Bld) [#/Vol] 197 10*3/uL 150-450 [facility] Potassium measurement (mass/ volume)Ordered By: Kacey Navarro on 05-19-2025 Potassium (Unsp spec) [Mass/Vol] 4.1 mmol/L 3.3-5.1 [facility] Protein Test strip Ql (U)Ord ered By: Kacey Navarro on 05-19-2025 Protein Ql (U) 30 mg/dl High Negative [facility] Protein+Creatinine Ratio,Uri neon 05-19-2025 PROT:CRE RATIO 157 mg/g CRE Normal 0-200 [facility] Comment on above: Performed By: #### L 400.0001, L506.1001, L501.0900 #### [facility] [address] [place], [address] Protein (U) [Mass/Vol] 9.8 mg/dL Normal 0.0-12.0 [facility] Comment on above: Performed By: #### L 400.0001, L506.1001, L501.0900 #### [facility] [address] [place], [address] UR CREAT 62.60 mg/dL Normal 39.00-259.0 0 [facility] Comment on above: Performed By: #### L 400.0001, L506.1001, L501.0900 #### [facility] [address] [place], [address] RBC Auto (Bld) [#/Vol]Ordere d By: Kacey Navarro on 05-19-2025 RBC (Bld) [#/Vol] 4.88 10*6/uL 4.6-6.2 [facility] Random urine creatinine melanie urement (mass/volume)Ordered By: Kacey Navarro on 05-19-2025 Creatinine Unsp time (U) [Mass/Vol] 62.60 mg/dL 39.00-259.0 0 [facility] Screening total cholesterol/ high density lipoprotein (HDL) cholesterol ratioOrdered By: Kacey Navarro on 05-19-2025 Cholesterol.total/Sparkle sterol in HDL [Mass ratio] 2.73 {ratio} [facility] Serum creatinine measurement (mass/volume)Ordered By: Kacey Navarro on 05-19-2025 Creatinine [Mass/Vol] 1.28 mg/dL High 0.70-1.20 [facility] Serum globulin measurementOr dered By: Kacey Navarro on 05-19-2025 Globulin (S) [Mass/Vol] 2.7 g/dL 2.2-4.2 [facility] Serum glucose measurement (m ass/volume)Ordered By: Kacey Navarro on 05-19-2025 Glucose [Mass/Vol] 143 mg/dL High 70-[address] [facility] Serum or plasma alanine mallory otransferase (ALT) measurementOrdered By: Kacey Navarro on 05-19-2025 ALT [Catalytic activity/Vol] 44 U/L <47 [facility] Serum or plasma albumin melanie urement (mass/volume)Ordered By: Kacey Navarro on 05-19-2025 Albumin [Mass/Vol] 4.3 g/dL 3.4-4.[address] [facility] Serum or plasma albumin/glob ulin mass ratioOrdered By: Kacey Navarro on 05-19-2025 Albumin/Globulin [Mass ratio] 1.6 {ratio} 0.9-2.4 [facility] Serum or plasma alkaline abelardo sphatase measurementOrdered By: Kacey Navarro on 05-19-2025 ALP [Catalytic activity/Vol] 57 U/L 40-129 [facility] Serum or plasma calcium melanie urement (mass/volume)Ordered By: Kacey Navarro on 05-19-2025 Calcium [Mass/Vol] 10.0 mg/dL 7.6-11.[address] [facility] Serum or plasma cholesterol in HDL measurement (mass/volume)Ordered By: Kacey Navarro on 05-19-2025 Cholesterol in HDL [Mass/Vol] 53 mg/dL >40 [facility] Comment on above: National Cholesterol Education Program (NCEP) guidelines:<40 mg/dL: Low HDL-cholesterol (major risk factor for CHD)>= 60 mg/dL: High HDL-cholesterol (negative risk factor for CHD)HDL-cholesterol is affected by a number of factors, e.g. smoking, exercise, hormones, sex and age. Serum or plasma cholesterol measurement (mass/volume)Ordered By: Kacey Navarro on 05-19-2025 Cholesterol [Mass/Vol] 145 mg/dL <201 [facility] Comment on above: Cholesterol level, D esirable <200 mg/dLBorderline high cholesterol 200-239 mg/dLHigh cholesterol >=240 mg/dLRecommendations of the NCEP Adult Treatment Panel for the following risk-cutoff thresholds for the [place] population. Serum or plasma urea nitroge n measurement (mass/volume)Ordered By: Kacey Navarro on 05-19-2025 Urea nitrogen [Mass/Vol] 25 mg/dL High 4-19 [facility] Sodium levelOrdered By: Kacey Navarro on 05-19-2025 Sodium [Moles/Vol] 141 mmol/L 133-[address] [facility] Squamous epithelial cells de tection in urine sediment by light microscopyOrdered By: Kacey Navarro on 05-19-2025 Epithelial cells.squamous LM Ql (Urine sed) 0 SEEN /hpf 0-5 [facility] Total proteinOrdered By: Todd Navarro on 05-19-2025 Protein [Mass/Vol] 7.0 g/dL 5.9-8.[address] [facility] Triglycerides measurementOrd ered By: Kacey Navarro on 05-19-2025 Triglyceride [Mass/Vol] 141 mg/dL <199 [facility] Comment on above: The drugs N-Acetylcy steine and Metamizole may falsely depress this assay. Normal range: <150 mg/dLBorderline High: 150-199 mg/dLHigh: 200-499 mg/dLVery High: >500 mg/dL Urinalysis, Completeon 05-19 BACTERIA 0 SEEN Normal None Seen [facility] Comment on above: Order Comment: Urine , Random Performed By: #### L 400.0001, L506.1001, L501.0900 #### [facility] [address] [place], [address] EPI,SQUAMOUS 0 SEEN Normal 0-5 [facility] Comment on above: Order Comment: Urine , Random Performed By: #### L 400.0001, L506.1001, L501.0900 #### [facility] [address] [place], [address] Mucus Ql (Urine sed) 0 SEEN Normal [facility] Comment on above: Order Comment: Urine , Random Performed By: #### L 400.0001, L506.1001, L501.0900 #### [facility] [address] [place], [address] RBC 0 SEEN Normal 0-5 [facility] Comment on above: Order Comment: Urine , Random Performed By: #### L 400.0001, L506.1001, L501.0900 #### [facility] [address] [place], [address] WBC 0 SEEN Normal 0-5 [facility] Comment on above: Order Comment: Urine , Random Performed By: #### L 400.0001, L506.1001, L501.0900 #### [facility] [address] [place], [address] Urine clarityOrdered By: Todd Navarro on 05-19-2025 Clarity (U) Clear Clear [facility] Urine color determinationOrd ered By: Kacey Navarro on 05-19-2025 Color (U) Yellow Yellow [facility] Urine glucose detectionOrder ed By: Kacey Navarro on 05-19-2025 Glucose Ql (U) 1000 mg/dl High Normal [facility] Urine leukocyte esterase det ection by dipstickOrdered By: Kacey Navarro on 05-19-2025 Leukocyte esterase Test strip Ql (U) Negative Negative [facility] Urine pHOrdered By: Kacey orozco on 05-19-2025 pH (U) 6.0 [pH] 5.0 - 8.0 [facility] Urine protein measurement (m ass/volume)Ordered By: Kacey Navarro on 05-19-2025 Protein (U) [Mass/Vol] 9.8 mg/dL 0.0-12.0 [facility] Urine protein/creatinine mas s ratioOrdered By: Kacey Navarro on 05-19-2025 Protein/Creatinine (U) [Mass ratio] 157 mg/g CRE 0-200 [facility] Urine sediment bacteria coun t by microscopy (number/high power field)Ordered By: Kacey Navarro on 05-19-2025 Bacteria LM.HPF (Urine sed) [#/Area] 0 /[HPF] None Seen [facility] Urine specific gravity measu rementOrdered By: Kacey Navarro on 05-19-2025 Specific gravity (U) [Rel density] 1.010 1.002-1.030 [facility] Urine urobilinogen measureme ntOrdered By: Kacey Navarro on 05-19-2025 Urobilinogen Ql (U) Normal mg/dl Normal [facility] Vitamin D,25 Hydroxyon 05-19 Vitamin D 25-OH 51.7 ng/mL Normal 30-100 [facility] Comment on above: Order Comment: Order Date: 05/19/25 Order Info: 0786-1 - CMP Order Info: [id number] - LIPID Result Comment: Jillian min D Status Deficiency: <20 ng/mL (50nmol/L) Insufficiency: 20-30 ng/mL (50-75 nmol/L) Sufficiency: 30-100 ng/mL (75-250 nmol/L) Toxicity: >100 ng/mL (>250 nmol/L) Performed By: #### L 400.0001, L506.1001, L501.0900 #### [facility] [address] [place], [address] White blood cell (WBC) count Ordered By: Kacey Navarro on 05-19-2025 WBC (Bld) [#/Vol] 5.0 10*3/uL 4.4-11.[address] [facility] White blood cell countOrdere d By: Kacey Navarro on 05-19-2025 White blood cell count 0 SEEN /hpf 0-5 [facility] Endocrinology Visit Reporton 01-22-2025 Endocrinology Visit Report [facility] [address] [place] [address]. [address] [place] [address] OFFICE VISIT Date of Service: 01/22/25 MR#: [id number] Acct: [id number] Name: VLAD SIDDIQI Rep #: [id number] 2 : 1960 Provider: Vandana Douglas Age/Sex: 65/M Location: [facility] Status: Signed Intake Vital Signs 07/15/24 15:22 [...] 05/01/23 01/22/25 Rx 5/16 (Comfort EZ Pen [place]) fluticasone propionate 50 2 spray intranasal DAILY [...] you fallen in the past year?: No [facility] Medical History Wears glasses Insulin dependent diabetes [...] (coronary a (more content not included)... Normal [facility] Absolute lymphocyte countOrd ered By: Kacey Navarro on 01-13-2025 Lymphocytes Auto (Unsp spec) [#/Vol] 2.11 10*3/uL 0.83-4.51 [facility] Absolute neutrophil countOrd ered By: Kacey Navarro on 01-13-2025 Neutrophils (Bld) [#/Vol] 3.4 10*3/uL 2.0-7.7 [facility] Anion gap in Serum or Plasma Ordered By: Kacey Navarro on 01-13-2025 Anion gap [Moles/Vol] 11 mmol/L 5-15 [facility] Automated lymphocyte count a s percentage of total leukocytesOrdered By: Kacey Navarro on 01-13-2025 Lymphocytes/100 WBC Auto (Unsp spec) 31.8 % 19-41 [facility] BUN/creatinine ratioOrdered By: Kacey Navarro on 01-13-2025 Urea nitrogen/Creatinine [Mass ratio] 16.7 mg/mg 10-20 [facility] Basophil percentageOrdered B y: Kacey Navarro on 01-13-2025 Basophils/100 WBC (Bld) 1.2 % High 0-1 [facility] Bilirubin, totalOrdered By: Kacey Navarro on 01-13-2025 Bilirubin [Mass/Vol] 0.25 mg/dL 0.00-1.30 [facility] CBC W/Diff, Automatedon 05-0 6-2024 Absolute Lymph 2.11 X10 3/uL Normal 0.83-4.51 [facility] Comment on above: Order Comment: Order Date: 05/19/25 Order Info: 0184-1 - CBCD Performed By: #### L 100.0100, L500.4100, L500.4050, L509.1000 #### [facility] [address] [place], [address] Absolute Neut 3.4 X10 3/uL Normal 2.0-7.7 [facility] Comment on above: Order Comment: Order Date: 05/19/25 Order Info: 0184-1 - CBCD Performed By: #### L 100.0100, L500.4100, L500.4050, L509.1000 #### [facility] [address] [place], [address] Basophils/100 WBC (Bld) 1.2 % High 0-1 [facility] Comment on above: Order Comment: Order Date: 05/19/25 Order Info: 0184-1 - CBCD Performed By: #### L 100.0100, L500.4100, L500.4050, L509.1000 #### [facility] [address] [place], [address] Eosinophils/100 WBC (Bld) 7.2 % High 0-5 [facility] Comment on above: Order Comment: Order Date: 05/19/25 Order Info: 0184-1 - CBCD Performed By: #### L 100.0100, L500.4100, L500.4050, L509.1000 #### [facility] [address] [place], [address] Erythrocyte distribution width (RBC) [Ratio] 12.3 % Normal 11.6-14.6 [facility] Comment on above: Order Comment: Order Date: 05/19/25 Order Info: 0184-1 - CBCD Performed By: #### L 100.0100, L500.4100, L500.4050, L509.1000 #### [facility] [address] [place], [address] Hematocrit (Bld) [Volume fraction] 44.9 % Normal 40-54 [facility] Comment on above: Order Comment: Order Date: 05/19/25 Order Info: 0184-1 - CBCD Performed By: #### L 100.0100, L500.4100, L500.4050, L509.1000 #### [facility] [address] [place], [address] Hemoglobin (Bld) [Mass/Vol] 14.8 g/dL Normal 13.0-16.5 [facility] Comment on above: Order Comment: Order Date: 05/19/25 Order Info: 0184-1 - CBCD Performed By: #### L 100.0100, L500.4100, L500.4050, L509.1000 #### [facility] [address] [place], [address] IG% 0.200 Normal 0.0-0.9 [facility] Comment on above: Order Comment: Order Date: 05/19/25 Order Info: 0184-1 - CBCD Result Comment: IG% - Immature Granulocytes (promyelocytes, myelocytes and metamyelocytes) > 1% indicates that a LEFT SHIFT is Present. Performed By: #### L 100.0100, L500.4100, L500.4050, L509.1000 #### [facility] [address] [place], [address] Lymphocytes/100 WBC (Bld) 31.8 % Normal 19-41 [facility] Comment on above: Order Comment: Order Date: 05/19/25 Order Info: 0184-1 - CBCD Performed By: #### L 100.0100, L500.4100, L500.4050, L509.1000 #### [facility] [address] [place], [address] MCH (RBC) [Entitic mass] 31.2 pg Normal 27.0-32.0 [facility] Comment on above: Order Comment: Order Date: 05/19/25 Order Info: 0184-1 - CBCD Performed By: #### L 100.0100, L500.4100, L500.4050, L509.1000 #### [facility] [address] [place], [address] MCHC (RBC) [Mass/Vol] 33.0 g/dL Normal 32-36 [facility] Comment on above: Order Comment: Order Date: 05/19/25 Order Info: 0184-1 - CBCD Performed By: #### L 100.0100, L500.4100, L500.4050, L509.1000 #### [facility] [address] [place], [address] MCV (RBC) [Entitic vol] 94.5 fL High 80-94 [facility] Comment on above: Order Comment: Order Date: 05/19/25 Order Info: 0184-1 - CBCD Performed By: #### L 100.0100, L500.4100, L500.4050, L509.1000 #### [facility] [address] [place], [address] Monocytes/100 WBC (Bld) 8.0 % Normal 0-10 [facility] Comment on above: Order Comment: Order Date: 05/19/25 Order Info: 0184-1 - CBCD Performed By: #### L 100.0100, L500.4100, L500.4050, L509.1000 #### [facility] [address] [place], [address] Neutrophils/100 WBC (Bld) 51.6 % Normal 47-70 [facility] Comment on above: Order Comment: Order Date: 05/19/25 Order Info: 0184-1 - CBCD Performed By: #### L 100.0100, L500.4100, L500.4050, L509.1000 #### [facility] [address] [place], [address] Nucleated RBC (Bld) [#/Vol] 0 10*3/uL Normal 0-5 [facility] Comment on above: Order Comment: Order Date: 05/19/25 Order Info: 0184-1 - CBCD Performed By: #### L 100.0100, L500.4100, L500.4050, L509.1000 #### [facility] [address] [place], [address] Platelet mean volume (Bld) [Entitic vol] 8.6 fL Normal 6.2-12.0 [facility] Comment on above: Order Comment: Order Date: 05/19/25 Order Info: 0184- - CBCD Performed By: #### L 100.0100, L500.4100, L500.4050, L509.1000 #### [facility] [address] [place], [address] Platelets (Bld) [#/Vol] 231 10*3/uL Normal 150-450 [facility] Comment on above: Order Comment: Order Date: 05/19/25 Order Info: 0184- - CBCD Performed By: #### L 100.0100, L500.4100, L500.4050, L509.1000 #### [facility] [address] [place], [address] RBC (Bld) [#/Vol] 4.75 10*6/uL Normal 4.6-6.2 [facility] Comment on above: Order Comment: Order Date: 05/19/25 Order Info: 0184-1 - CBCD Performed By: #### L 100.0100, L500.4100, L500.4050, L509.1000 #### [facility] [address] [place], [address] RDW SD 42.5 fl Normal 35.1-43.9 [facility] Comment on above: Order Comment: Order Date: 05/19/25 Order Info: 0184-1 - CBCD Performed By: #### L 100.0100, L500.4100, L500.4050, L509.1000 #### [facility] [address] [place], [address] WBC (Bld) [#/Vol] 6.6 10*3/uL Normal 4.4-11.[address] [facility] Comment on above: Order Comment: Order Date: 05/19/25 Order Info: 0184- - CBCD Performed By: #### L 100.0100, L500.4100, L500.4050, L509.1000 #### [facility] [address] [place], [address] Calculated very low density lipoprotein (VLDL) cholesterol measurementOrdered By: Kacey Navarro on 01-13-2025 Calculated very low density lipoprotein (VLDL) cholesterol measurement 52 mg/dL High 5-40 [facility] Carbon dioxide, total [Moles /volume] in Central venous bloodOrdered By: Kacey Navarro on 01-13-2025 CO2 [Moles/Vol] 23.2 mmol/L 21.0-32.0 [facility] Chloride assayOrdered By: Gogo Navarro on 01-13-2025 Chloride [Moles/Vol] 107 mmol/L 98-108 [facility] Comprehensive Metabolic Prof ilon 01-13-2025 Albumin [Mass/Vol] 4.1 g/dL Normal 3.4-4.[address] [facility] Comment on above: Order Comment: Order Date: 05/19/25 Order Info: 0184-1 - CBCD Performed By: #### L 100.0100, L500.4100, L500.4050, L509.1000 #### [facility] [address] [place], [address] Albumin/Globulin [Mass ratio] 1.4 {ratio} Normal 0.9-2.4 [facility] Comment on above: Order Comment: Order Date: 05/19/25 Order Info: 0184-1 - CBCD Performed By: #### L 100.0100, L500.4100, L500.4050, L509.1000 #### [facility] [address] [place], [address] ALK PHOS 73 U/L Normal 40-129 [facility] Comment on above: Order Comment: Order Date: 05/19/25 Order Info: 0184-1 - CBCD Performed By: #### L 100.0100, L500.4100, L500.4050, L509.1000 #### [facility] [address] [place], [address] ALT [Catalytic activity/Vol] 40 U/L Normal <=46 [facility] Comment on above: Order Comment: Order Date: 05/19/25 Order Info: 0184-1 - CBCD Performed By: #### L 100.0100, L500.4100, L500.4050, L509.1000 #### [facility] [address] [place], [address] AST [Catalytic activity/Vol] 27 U/L Normal <=37 [facility] Comment on above: Order Comment: Order Date: 05/19/25 Order Info: 0184-1 - CBCD Performed By: #### L 100.0100, L500.4100, L500.4050, L509.1000 #### [facility] [address] [place], [address] Bilirubin [Mass/Vol] 0.25 mg/dL Normal 0.00-1.30 [facility] Comment on above: Order Comment: Order Date: 05/19/25 Order Info: 0184-1 - CBCD Performed By: #### L 100.0100, L500.4100, L500.4050, L509.1000 #### [facility] [address] [place], [address] BUN/CRE 16.7 RATIO Normal 10-20 [facility] Comment on above: Order Comment: Order Date: 05/19/25 Order Info: 0184-1 - CBCD Performed By: #### L 100.0100, L500.4100, L500.4050, L509.1000 #### [facility] [address] [place], [address] Calcium [Mass/Vol] 9.5 mg/dL Normal 7.6-11.[address] [facility] Comment on above: Order Comment: Order Date: 05/19/25 Order Info: 0184-1 - CBCD Performed By: #### L 100.0100, L500.4100, L500.4050, L509.1000 #### [facility] [address] [place], [address] Chloride [Moles/Vol] 107 mmol/L Normal 98-108 [facility] Comment on above: Order Comment: Order Date: 05/19/25 Order Info: 0184-1 - CBCD Performed By: #### L 100.0100, L500.4100, L500.4050, L509.1000 #### [facility] [address] [place], [address] CO2 [Moles/Vol] 23.2 mmol/L Normal 21.0-32.0 [facility] Comment on above: Order Comment: Order Date: 05/19/25 Order Info: 0184-1 - CBCD Performed By: #### L 100.0100, L500.4100, L500.4050, L509.1000 #### [facility] [address] [place], [address] Creatinine [Mass/Vol] 1.26 mg/dL High 0.70-1.20 [facility] Comment on above: Order Comment: Order Date: 05/19/25 Order Info: 0184-1 - CBCD Performed By: #### L 100.0100, L500.4100, L500.4050, L509.1000 #### [facility] [address] [place], [address] GAP 11 Normal 5-15 [facility] Comment on above: Order Comment: Order Date: 05/19/25 Order Info: 0184- - CBCD Performed By: #### L 100.0100, L500.4100, L500.4050, L509.1000 #### [facility] [address] [place], [address] GFR/1.73 sq M.predicted among non-blacks MDRD (S/P/Bld) [Vol rate/Area] 63 mL/min/{1.73_m2} Normal >60 [facility] Comment on above: Order Comment: Order Date: 05/19/25 Order Info: 018- - CBCD Result Comment: mL/m in/1.73m2 CKD-EPI Creatinine Equation (2020) Performed By: #### L 100.0100, L500.4100, L500.4050, L509.1000 #### [facility] [address] [place], [address] Globulin (S) [Mass/Vol] 2.9 g/dL Normal 2.2-4.2 [facility] Comment on above: Order Comment: Order Date: 05/19/25 Order Info: 0184- - CBCD Performed By: #### L 100.0100, L500.4100, L500.4050, L509.1000 #### [facility] [address] [place], [address] Glucose [Mass/Vol] 115 mg/dL High 70-[address] [facility] Comment on above: Order Comment: Order Date: 05/19/25 Order Info: 0184- - CBCD Performed By: #### L 100.0100, L500.4100, L500.4050, L509.1000 #### [facility] [address] [place], [address] Potassium [Moles/Vol] 3.6 mmol/L Normal 3.3-5.1 [facility] Comment on above: Order Comment: Order Date: 05/19/25 Order Info: 0184-1 - CBCD Performed By: #### L 100.0100, L500.4100, L500.4050, L509.1000 #### [facility] [address] [place], [address] Sodium [Moles/Vol] 141 mmol/L Normal 133-[address] [facility] Comment on above: Order Comment: Order Date: 05/19/25 Order Info: 0184- - CBCD Performed By: #### L 100.0100, L500.4100, L500.4050, L509.1000 #### [facility] [address] [place], [address] T PROT 7.0 g/dL Normal 5.9-8.4 [facility] Comment on above: Order Comment: Order Date: 05/19/25 Order Info: 0184- - CBCD Performed By: #### L 100.0100, L500.4100, L500.4050, L509.1000 #### [facility] [address] [place], [address] Urea nitrogen [Mass/Vol] 21 mg/dL High 4-19 [facility] Comment on above: Order Comment: Order Date: 05/19/25 Order Info: 0184-1 - CBCD Performed By: #### L 100.0100, L500.4100, L500.4050, L509.1000 #### [facility] [address] [place], [address] Eosinophil percentageOrdered By: Kacey Navarro on 01-13-2025 Eosinophils/100 WBC (Bld) 7.2 % High 0-5 [facility] Erythrocyte distribution wid th ratioOrdered By: Kacey Navarro on 01-13-2025 Erythrocyte distribution width (RBC) [Ratio] 12.3 % 11.6-14.6 [facility] Erythrocyte distribution wid th standard deviationOrdered By: Kacey Navarro on 01-13-2025 Erythrocyte distribution width (RBC) [Ratio] 42.5 fl 35.1-43.9 [facility] Glomerular filtration rate ( GFR) estimation/1.73 sq m using serum, plasma, or whole bOrdered By: Kacey Navarro on 01-13-2025 GFR/1.73 sq M.predicted among non-blacks MDRD (S/P/Bld) [Vol rate/Area] 63 mL/min/{1.73_m2} >60 [facility] Comment on above: mL/min/1.73m2 CKD-EP I Creatinine Equation (2020) Hematocrit Auto (Bld) [Volum e fraction]Ordered By: Kacey Navarro on 01-13-2025 Hematocrit (Bld) [Volume fraction] 44.9 % 40-54 [facility] Hemoglobin measurementOrdere d By: Kacey Navarro on 01-13-2025 Hemoglobin (Bld) [Mass/Vol] 14.8 g/dL 13.0-16.5 [facility] Immature granulocytes/100 WB C Auto (Bld)Ordered By: Kacey Navarro on 01-13-2025 Immature granulocytes/100 WBC (Bld) 0.200 % 0.0-0.9 [facility] Comment on above: IG% - Immature Granu locytes (promyelocytes, myelocytes and metamyelocytes) > 1% indicates that a LEFT SHIFT is Present. LDL calc ser/plasOrdered By: Kacey Navarro on 01-13-2025 Cholesterol in LDL [Mass/Vol] 51 mg/dL [facility] Comment on above: Rvbmzugatq=782-727 m g/dL & Higher Qwyy=637 mg/dL or greater Laboratory - Chemistry and C hemistry - challengeOrdered By: Kacey Navarro on 01-13-2025 AST [Catalytic activity/Vol] 27 U/L <38 [facility] Lipid Profileon 01-13-2025 CHOL:HDL 3.37 Normal [facility] Comment on above: Order Comment: Order Date: 05/19/25 Order Info: 0184-1 - CBCD Performed By: #### L 100.0100, L500.4100, L500.4050, L509.1000 #### [facility] [address] [place], [address] Cholesterol [Mass/Vol] 146 mg/dL Normal <=200 [facility] Comment on above: Order Comment: Order Date: 05/19/25 Order Info: 0184-1 - CBCD Result Comment: Chol esterol level, Desirable <200 mg/dL Borderline high cholesterol 200-239 mg/dL High cholesterol >=240 mg/dL Recommendations of the NCEP Adult Treatment Panel for the following risk-cutoff thresholds for the [place] population. Performed By: #### L 100.0100, L500.4100, L500.4050, L509.1000 #### [facility] [address] [place], [address] Cholesterol in HDL [Mass/Vol] 43 mg/dL Normal [facility] Comment on above: Order Comment: Order Date: 05/19/25 Order Info: 0184-1 - CBCD Result Comment: Diandra onal Cholesterol Education Program (NCEP) guidelines: <40 mg/dL: Low HDL-cholesterol (major risk factor for CHD) >= 60 mg/dL: High HDL-cholesterol (negative risk factor for CHD) HDL-cholesterol is affected by a number of factors, e.g. smoking, exercise, hormones, sex and age. Performed By: #### L 100.0100, L500.4100, L500.4050, L509.1000 #### [facility] [address] [place], [address] Cholesterol in LDL [Mass/Vol] 51 mg/dL Normal [facility] Comment on above: Order Comment: Order Date: 05/19/25 Order Info: 0184-1 - CBCD Result Comment: Bord rgdtkh=175-185 mg/dL Higher Cdml=673 mg/dL or greater Performed By: #### L 100.0100, L500.4100, L500.4050, L509.1000 #### [facility] [address] [place], [address] Cholesterol in VLDL [Mass/Vol] 52 mg/dL High 5-40 [facility] Comment on above: Order Comment: Order Date: 05/19/25 Order Info: 0184-1 - CBCD Performed By: #### L 100.0100, L500.4100, L500.4050, L509.1000 #### [facility] [address] [place], [place], [address] Triglyceride [Mass/Vol] 261 mg/dL High [facility] Comment on above: Order Comment: Order Date: 05/19/25 Order Info: 0184-1 - CBCD Result Comment: The drugs N-Acetylcysteine and Metamizole may falsely depress this assay. Normal range: <150 mg/dL Borderline High: 150-199 mg/dL High: 200-499 mg/dL Very High: >500 mg/dL Performed By: #### L 100.0100, L500.4100, L500.4050, L509.1000 #### [facility] [address] [place] [place], [address] MCV (mean corpuscular volume ) determinationOrdered By: Kacey Navarro on 01-13-2025 MCV (RBC) [Entitic vol] 94.5 fL High 80-94 [facility] Mean corpuscular hemoglobin (MCH) determinationOrdered By: Kacey Navarro on 01-13-2025 MCH (RBC) [Entitic mass] 31.2 pg 27.0-32.0 [facility] Mean corpuscular hemoglobin concentration (MCHC) determinationOrdered By: Kacey Navarro on 01-13-2025 MCHC (RBC) [Mass/Vol] 33.0 g/dL 32-36 [facility] Mean platelet volume determi nationOrdered By: Kacey Navarro on 01-13-2025 Platelet mean volume (Bld) [Entitic vol] 8.6 fL 6.2-12.0 [facility] Monocyte percentageOrdered B y: Kacey Navarro on 01-13-2025 Monocytes/100 WBC (Bld) 8.0 % 0-10 [facility] Neutrophil percentageOrdered By: Kacey Navarro on 01-13-2025 Neutrophils/100 WBC (Bld) 51.6 % 47-70 [facility] Nucleated red blood cell per centageOrdered By: Kacey Navarro on 01-13-2025 Nucleated RBC/100 WBC (Bld) [Ratio] 0 % 0-5 [facility] PTHINon 01-13-2025 PTH 25 pg/mL Normal 11-61 [facility] Comment on above: Order Comment: Order Date: 05/19/25 Order Info: 0184-1 - CBCD Performed By: #### L 100.0100, L500.4100, L500.4050, L509.1000 #### [facility] [address] [place], [address] Platelet countOrdered By: Gogo Navarro on 01-13-2025 Platelets (Bld) [#/Vol] 231 10*3/uL 150-450 [facility] Potassium measurement (mass/ volume)Ordered By: Kacey Navarro on 01-13-2025 Potassium (Unsp spec) [Mass/Vol] 3.6 mmol/L 3.3-5.1 [facility] Protein+Creatinine Ratio,Uri neon 01-13-2025 PROT:CRE RATIO 182 mg/g CRE Normal 0-200 [facility] Comment on above: Performed By: #### L 100.0100, L500.4100, L500.4050, L509.1000 #### [facility] [address] [place], [address] Protein (U) [Mass/Vol] 15.0 mg/dL High 0.0-12.0 [facility] Comment on above: Performed By: #### L 100.0100, L500.4100, L500.4050, L509.1000 #### [facility] [address] [place], [address] UR CREAT 82.20 mg/dL Normal 39.00-259.0 0 [facility] Comment on above: Performed By: #### L 100.0100, L500.4100, L500.4050, L509.1000 #### [facility] [place], [address] RBC Auto (Bld) [#/Vol]Ordere d By: Kacey Navarro on 01-13-2025 RBC (Bld) [#/Vol] 4.75 10*6/uL 4.6-6.2 [facility] Random urine creatinine melanie urement (mass/volume)Ordered By: Kacey Navarro on 01-13-2025 Creatinine Unsp time (U) [Mass/Vol] 82.20 mg/dL 39.00-259.0 0 [facility] Screening total cholesterol/ high density lipoprotein (HDL) cholesterol ratioOrdered By: Kacey Navarro on 01-13-2025 Cholesterol.total/Sparkle sterol in HDL [Mass ratio] 3.37 {ratio} [facility] Serum creatinine measurement (mass/volume)Ordered By: Kacey Navarro on 01-13-2025 Creatinine [Mass/Vol] 1.26 mg/dL High 0.70-1.20 [facility] Serum globulin measurementOr dered By: Kacey Navarro on 01-13-2025 Globulin (S) [Mass/Vol] 2.9 g/dL 2.2-4.2 [facility] Serum glucose measurement (m ass/volume)Ordered By: Kacey Navarro on 01-13-2025 Glucose [Mass/Vol] 115 mg/dL High 70-[address] [facility] Serum or plasma alanine mallory otransferase (ALT) measurementOrdered By: Kacey Navarro on 01-13-2025 ALT [Catalytic activity/Vol] 40 U/L <47 [facility] Serum or plasma albumin melanie urement (mass/volume)Ordered By: Kacey Navarro on 01-13-2025 Albumin [Mass/Vol] 4.1 g/dL 3.4-4.[address] [facility] Serum or plasma albumin/glob ulin mass ratioOrdered By: Kacey Navarro on 01-13-2025 Albumin/Globulin [Mass ratio] 1.4 {ratio} 0.9-2.4 [facility] Serum or plasma alkaline abelardo sphatase measurementOrdered By: Kacey Navarro on 01-13-2025 ALP [Catalytic activity/Vol] 73 U/L 40-129 [facility] Serum or plasma calcium melanie urement (mass/volume)Ordered By: Kacey Navarro on 01-13-2025 Calcium [Mass/Vol] 9.5 mg/dL 7.6-11.[address] [facility] Serum or plasma cholesterol in HDL measurement (mass/volume)Ordered By: Kacey Navarro on 01-13-2025 Cholesterol in HDL [Mass/Vol] 43 mg/dL >40 [facility] Comment on above: National Cholesterol Education Program (NCEP) guidelines:<40 mg/dL: Low HDL-cholesterol (major risk factor for CHD)>= 60 mg/dL: High HDL-cholesterol (negative risk factor for CHD)HDL-cholesterol is affected by a number of factors, e.g. smoking, exercise, hormones, sex and age. Serum or plasma cholesterol measurement (mass/volume)Ordered By: Kacey Navarro on 01-13-2025 Cholesterol [Mass/Vol] 146 mg/dL <201 [facility] Comment on above: Cholesterol level, D esirable <200 mg/dLBorderline high cholesterol 200-239 mg/dLHigh cholesterol >=240 mg/dLRecommendations of the NCEP Adult Treatment Panel for the following risk-cutoff thresholds for the [place] population. Serum or plasma urea nitroge n measurement (mass/volume)Ordered By: Kacey Navarro on 01-13-2025 Urea nitrogen [Mass/Vol] 21 mg/dL High 4-19 [facility] Sodium levelOrdered By: Kacey Navarro on 01-13-2025 Sodium [Moles/Vol] 141 mmol/L 133-[address] [facility] Total proteinOrdered By: Todd Navarro on 01-13-2025 Protein [Mass/Vol] 7.0 g/dL 5.9-8.[address] [facility] Triglycerides measurementOrd ered By: Kacey Navarro on 01-13-2025 Triglyceride [Mass/Vol] 261 mg/dL High <199 [facility] Comment on above: The drugs N-Acetylcy steine and Metamizole may falsely depress this assay. Normal range: <150 mg/dLBorderline High: 150-199 mg/dLHigh: 200-499 mg/dLVery High: >500 mg/dL Urine protein measurement (m ass/volume)Ordered By: Kacey Navarro on 01-13-2025 Protein (U) [Mass/Vol] 15.0 mg/dL High 0.0-12.0 [facility] Urine protein/creatinine mas s ratioOrdered By: Kacey Navarro on 01-13-2025 Protein/Creatinine (U) [Mass ratio] 182 mg/g CRE 0-200 [facility] Vitamin D,25 Hydroxyon 01-13 Vitamin D 25-OH 47.1 ng/mL Normal 30-100 [facility] Comment on above: Order Comment: Order Date: 05/19/25 Order Info: 0565-1 - PTHIN Result Comment: Jillian min D Status Deficiency: <20 ng/mL (50nmol/L) Insufficiency: 20-30 ng/mL (50-75 nmol/L) Sufficiency: 30-100 ng/mL (75-250 nmol/L) Toxicity: >100 ng/mL (>250 nmol/L) Performed By: #### L 100.0100, L500.4100, L500.4050, L509.1000 #### [facility] [address] [place], [address] White blood cell (WBC) count Ordered By: Kacey Navarro on 01-13-2025 WBC (Bld) [#/Vol] 6.6 10*3/uL 4.4-11.[address] [facility] Bedside Glucoseon 12-25-2024 FINGERSTICK GLU 233 mg/dL High 74-106 [facility] Comment on above: Result Comment: KRANTHI GEMENT OF PATIENT CARE PER NURSING PROTOCOL Performed By: #### L 100.0100, L500.4100, L500.4050, L509.1000 #### [facility] [address] [place], [address] [facility]dered By: Justo Terry on 12-25-2024 Bedside Glucose (Misc Panel) 233 mg/dL High 74-106 [facility] Comment on above: MANAGEMENT OF PATIEN T CARE PER NURSING PROTOCOL Glucose [Mass/Vol] 233 mg/dL High 74-[address] [facility] Comment on above: MANAGEMENT OF PATIEN T CARE PER NURSING PROTOCOL MR/POSTOP.ANEon 12-25-2024 MR/POSTOP.ANE [facility] Medical Records Department [address] [place] [address] Anesthesia Postop Eval I 12/25/24 1239 MR#: [id number] Acct: [id number] Name: VINHVLAD Megan Rep #: [id number] : 1960 64 From: Jose Chung MD PCP: Dr. Kacey Navarro MD Status:NISREEN [facility] Y Race: C Location: [facility] Anesthesia: Postop Eval I Current Vital Signs [...] MD Cosigner Signature: Date CC: Signed Normal [facility] MR/[id number] 12-25-2024 MR/POSTOPAN2 [facility] Medical Records Department [address] [place] [address] Anesthesia Postop Eval II 12/25/242113 MR#: [id number] Acct: [id number] Name: VINHVLAD Megan Rep #: [id number] : 1960 64 From: Jose Chung MD PCP: Dr. Kacey Navarro MD Status:NISREEN DUNN Y Race: C Location: [facility] Anesthesia Postop Eval I Sum Postop Eval Completion status Anesthesia document: Postop Eval 1 completed: Yes Anesthesia Postop Eval I Summary Anesthesia Postop Eval I Summary: Anesthesia Postop Eval I: Assessment Summary Airway patent Yes 12/25/24 21:14 Spontaneous unlabored Yes 12/25/24 21:14 respirations Mental status nausea No 12/25/24 21:14 Vomiting No 12/25/24 21:14 Anesthesia Postop Eval I: Fluid Summary Crystalloid volume administer 1,500 12/25/24 21:14 (ml) Colloids volume administered ( ml) Blood Product volume administered (ml) Total IV fluid infused 1,500 12/25/24 21:14 Anesthesia Postop Eval I: Summary Notes Anesthesia Complication No 12/25/24 21:14 Anesthesia Complication Comment: Post-operative progress note Anesthesia: Postop Eval II Evaluation Mental status: Awake and Calm Pain Level: 1 nausea: No Vomiting: No Complications Anesthesia Complication: No 12/25/242113 Date Jose Chung MD Cosigner Signature: Date CC: Signed Normal [facility] Operative Reporton 5 Operative Report [facility] Medical Records Department [address] [place] [address] Operative Report 12/25/24 1257 MR#: [id number] Acct: [id number] Name: VINHVLAD Rep #: [id number] : 1960 64 From: Justo Terry DO PCP: Dr. Kacey Navarro MD Status:[facility] Location: [place] [address] Operative Report (Standard) Operative Information Date of Procedure: 12/25/24 Pre-Operative Diagnosis: 1. Massive right rotator cuff tear 2. Right shoulder long head of biceps tendinosis Post-Operative Diagnosis: 1. Massive right rotator cuff tear 2. Right shoulder long head of biceps tendinosis Surgery/Procedure Performed: Right shoulder arthroscopic rotator cuff repair and biceps tenodesis admissions manager rn: Yes Assistant Manager Bilingual: Jacquie Romero Tasks completed by certified dental assistant: Opening closing and Implanting device Additional ex assistant/program director?: No Type of Anesthesia: General/Regional RN Documented [...] was weaved with the FiberWire with a scorpion suture passer and then passed through the [...] compression of the rotator cuff at its tonto apache footprint. The infraspinatus demonstrated a small area of not reduced tissue which was subsequently reduced with a inverted mattress fiber tape suture anteriorly an additional swivel l (more content not included)... Normal [facility] Electrocardiogram reportOrde red By: Prakash Ortega on 12-19-2024 EKG study [facility] Cardiovascular Services [address] [place] [address] 12 Lead EKG 12/18/24 1001 MR#: [id number] Acct: [id number] Name: VLAD SIDDIQI Rep #:[id number] : 1960 64 From: Prakash Ortega MD Attending Dr: Dr. Justo Terry DO Status: PRE SDC Ordering Dr: Justo Terry DO Date: 12/18/24 Location: [facility] Sex: M C Admitted: Test Reason : [...] Borderline ECG Confirmed by ANNA GARCIA, PRAKASH ([id number]), editor city [place] OSPINA ([id number]) on 57:01:18 AM Referred By: Justo Terry Confirmed By: PRAKASH ORTEGA MD 12/19/24 0701 Date _ Prakash Ortega MD CC: Dr. Kacey Navarro MD; Dr. Justo Terry DO ~ Signed [facility] Work Phone: MR/ANASTACIOrach 12-19-2024 /[facility] Medical Records Department [address] [place] [address] PAT - Anesthesia 12/19/24 1101 MR#: [id number] Acct: [id number] Name: VLAD SIDDIQI Rep #: [id number] : 1960 64 From: Wood Peralta MD PCP: Dr. Kacey Navarro MD Status:PRE SDC Y Race: C Location: [facility] Pre-Assessment Diagnosis/Proposed Procedure Planned Operative Procedure(s): Right shoulder arthroscopic rotator cuff repair and mini open biceps tenodesis. Anesthesia History Anesthesia History - middleware solutions architect: Anesthesia History - middleware solutions architect Hx Hospitalization No 12/15/24 15:07 Any Problems [...] take am of surgery PONV PONV - middleware solutions architect: PONV - middleware solutions architect Female No 12/15/24 15:07 HX of Motion [...] 07/15/24 15:22 Respiratory Assessment Respiratory Assessment - middleware solutions architect: Respiratory Tract Infection Hx - middleware solutions architect Hx Respiratory Tract Infection No 12/15/24 15:07 STOP Sleep Apnea STOP Sleep Apnea - middleware solutions architect: STOP Sleep Apnea - middleware solutions architect Hx Hypertension Yes: CONTROLLED WITH MED 12/15/24 [...] 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 History - middleware solutions architect: Tobacco Use History - middleware solutions architect Tobacco Use Smoking Status Never smoker 12/15/24 15:07 Hx Tobacco Use No 12/15/24 15:07 Years Smoking Packs Smoked per Day Smoking Cessation Date was within the last 15 years Hx Smoking Cessation Date Hx Smoking Cessation Counseling Hematologic Medial History Hematologic Hx - middleware solutions architect: Hematologic 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 Normal [facility] 12 Lead EKGon 12-18-2024 12 Lead EKG [facility] Cardiovascular Services [address] [place] [address] 12 Lead EKG 12/18/24 1001 MR#: [id number] Acct: [id number] Name: VLAD SIDDIQI Rep #: [id number] : 1960 64 From: Prakash Ortega MD Attending Dr: Dr. Justo Terry, DO Status: PRE SDC Ordering Dr: Justo Terry DO Date: 12/18/24 Location: [facility] Sex: M C Admitted: Test Reason : [...] Borderline ECG Confirmed by ANNA GARCIA, PRAKASH ([id number]), editor city [place] ([id number]) on 12/19/2024 7:01:18 AM Referred By: Justo Terry Confirmed By: PRAKASH ORTEGA MD 12/19/24 07 Date Prakash Ortega MD CC: Dr. Kacey Navarro MD; Dr. Justo Terry DO Signed [facility] MR/PAT.[facility] 12-18-2024 /[facility] Medical Records Department [address] [place] [address] PAT - Anesthesia 12/18/24 1635 MR#: [id number] Acct: [id number] Name: VLAD SIDDIQI Rep #: [id number] : 1960 64 From: Jose Chung MD PCP: Dr. Kacey Navarro MD Status:PRE [facility] Y Race: C Location: [facility] Pre-Assessment Diagnosis/Proposed Procedure Planned Operative Procedure(s): Right shoulder arthroscopic rotator cuff repair and mini open biceps tenodesis. Anesthesia History Anesthesia History - middleware solutions architect: Anesthesia History - middleware solutions architect Hx Hospitalization No 12/15/24 15:07 Any Problems [...] take am of surgery PONV PONV - middleware solutions architect: PONV - middleware solutions architect Female No 12/15/24 15:07 HX of Motion [...] 07/15/24 15:22 Respiratory Assessment Respiratory Assessment - middleware solutions architect: Respiratory Tract Infection Hx - middleware solutions architect Hx Respiratory Tract Infection No 12/15/24 15:07 STOP Sleep Apnea STOP Sleep Apnea - middleware solutions architect: STOP Sleep Apnea - middleware solutions architect Hx Hypertension Yes: CONTROLLED WITH MED 12/15/24 [...] 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 History - middleware solutions architect: Tobacco Use History - middleware solutions architect Tobacco Use Smoking Status Never smoker 12/15/24 15:07 Hx Tobacco Use No 12/15/24 15:07 Years Smoking Packs Smoked per Day Smoking Cessation Date was within the last 15 years Hx Smoking Cessation Date Hx Smoking Cessation Counseling Hematologic Medial History Hematologic Hx - middleware solutions architect: Hematologic 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 Specify any problems Hx of Preganancy in last 3 N/A 04/07/25 15:07 Months Nurse Filling Out Transfusion DSCHRIBER 12/15/24 15:07 Questions: Date: 12/15/24 12/15/24 15:07 Time: 15:08 12/15/24 15:07 Patient unable to answer at this time (ie. confused, unrespo /Reproduction History /Reproductive History - middleware solutions architect: /Reproductive Hx- middleware solutions architect Hx Now No 12/15/24 15:07 Gestational Age (in weeks): EDC: Hx Hx Para Hx Section SAB No 12/15/24 15:07 [facility] Medical History (Updated 12/15/24 @ 15:14 by [...] PO T (more content not included)... Normal [facility] Absolute lymphocyte countOrd ered By: Justo Terry on 12-11-2024 Lymphocytes Auto (Unsp spec) [#/Vol] 1.88 10*3/uL 0.83-4.51 [facility] Absolute neutrophil countOrd ered By: Justo Terry on 12-11-2024 Neutrophils (Bld) [#/Vol] 4.8 10*3/uL 2.0-7.7 [facility] Albumin, Serumon 12-11-2024 Albumin [Mass/Vol] 4.5 g/dL Normal 3.4-4.[address] [facility] Comment on above: Performed By: #### L 100.0100, L500.4100, L500.4050, L509.1000 #### [facility] [address] [place], [address] Anion gap in Serum or Plasma Ordered By: Justo Terry on 12-11-2024 Anion gap [Moles/Vol] 12 mmol/L 5-15 [facility] Automated lymphocyte count a s percentage of total leukocytesOrdered By: Justo Terry on 12-11-2024 Lymphocytes/100 WBC Auto (Unsp spec) 25.0 % [facility] BUN/creatinine ratioOrdered By: Justo Terry on 12-11-2024 Urea nitrogen/Creatinine [Mass ratio] 18.7 mg/mg - [facility] Basic Metabolic Profile (BMP )on 12-11-2024 BUN/CRE 18.7 RATIO Normal - [facility] Comment on above: Performed By: #### L 100.0100, L500.4100, L500.4050, L509.1000 #### [facility] [address] [place], [address] Calcium [Mass/Vol] 9.5 mg/dL Normal 7.6-11.[address] [facility] Comment on above: Performed By: #### L 100.0100, L500.4100, L500.4050, L509.1000 #### [facility] [address] [place], [address] Chloride [Moles/Vol] 105 mmol/L Normal 98-108 [facility] Comment on above: Performed By: #### L 100.0100, L500.4100, L500.4050, L509.1000 #### [facility] [address] [place], [address] CO2 [Moles/Vol] 23.6 mmol/L Normal 21.0-32.0 [facility] Comment on above: Performed By: #### L 100.0100, L500.4100, L500.4050, L509.1000 #### [facility] [address] [place], [address] Creatinine [Mass/Vol] 1.28 mg/dL High 0.70-1.20 [facility] Comment on above: Performed By: #### L 100.0100, L500.4100, L500.4050, L509.1000 #### [facility] [address] [place], [address] GAP 12 Normal 5-15 [facility] Comment on above: Performed By: #### L 100.0100, L500.4100, L500.4050, L509.1000 #### [facility] [address] [place], [address] GFR/1.73 sq M.predicted among non-blacks MDRD (S/P/Bld) [Vol rate/Area] 62 mL/min/{1.73_m2} Normal >60 [facility] Comment on above: Result Comment: mL/m in/1.73m2 CKD-EPI Creatinine Equation (2020) Performed By: #### L 100.0100, L500.4100, L500.4050, L509.1000 #### [facility] [address] [place], [address] Glucose [Mass/Vol] 108 mg/dL High 70-[address] [facility] Comment on above: Performed By: #### L 100.0100, L500.4100, L500.4050, L509.1000 #### [facility] [address] [place], [address] Potassium [Moles/Vol] 4.1 mmol/L Normal 3.3-5.1 [facility] Comment on above: Performed By: #### L 100.0100, L500.4100, L500.4050, L509.1000 #### [facility] [address] [place], [address] Sodium [Moles/Vol] 140 mmol/L Normal 133-[address] [facility] Comment on above: Performed By: #### L 100.0100, L500.4100, L500.4050, L509.1000 #### [facility] [address] [place], [address] Urea nitrogen [Mass/Vol] 24 mg/dL High 4-19 [facility] Comment on above: Performed By: #### L 100.0100, L500.4100, L500.4050, L509.1000 #### [facility] [address] [place], [address] Basophil percentageOrdered B y: Justo Terry on 12-11-2024 Basophils/100 WBC (Bld) 0.8 % 0-1 [facility] CBC W/Diff, Automatedon Absolute Lymph 1.88 X10 3/uL Normal 0.83-4.51 [facility] Comment on above: Performed By: #### L 100.0100, L500.4100, L500.4050, L509.1000 #### [facility] [facility] [address] [place], [address] Absolute Neut 4.8 X10 3/uL Normal 2.0-7.7 [facility] Comment on above: Performed By: #### L 100.0100, L500.4100, L500.4050, L509.1000 #### [facility] [address] [place], [address] Basophils/100 WBC (Bld) 0.8 % Normal 0-1 [facility] Comment on above: Performed By: #### L 100.0100, L500.4100, L500.4050, L509.1000 #### [facility] [address] [place], [address] Eosinophils/100 WBC (Bld) 2.3 % Normal 0-5 [facility] Comment on above: Performed By: #### L 100.0100, L500.4100, L500.4050, L509.1000 #### [facility] [address] [place], [address] Erythrocyte distribution width (RBC) [Ratio] 12.3 % Normal 11.6-14.6 [facility] Comment on above: Performed By: #### L 100.0100, L500.4100, L500.4050, L509.1000 #### [facility] [address] [place], [address] Hematocrit (Bld) [Volume fraction] 48.2 % Normal 40-54 [facility] Comment on above: Performed By: #### L 100.0100, L500.4100, L500.4050, L509.1000 #### [facility] [address] [place], [address] Hemoglobin (Bld) [Mass/Vol] 16.3 g/dL Normal 13.0-16.5 [facility] Comment on above: Performed By: #### L 100.0100, L500.4100, L500.4050, L509.1000 #### [facility] [address] [place], [address] IG% 0.400 Normal 0.0-0.9 [facility] Comment on above: Result Comment: IG% - Immature Granulocytes (promyelocytes, myelocytes and metamyelocytes) > 1% indicates that a LEFT SHIFT is Present. Performed By: #### L 100.0100, L500.4100, L500.4050, L509.1000 #### [facility] [address] [place], [address] Lymphocytes/100 WBC (Bld) 25.0 % Normal 19-41 [facility] Comment on above: Performed By: #### L 100.0100, L500.4100, L500.4050, L509.1000 #### [facility] [address] [place], [address] MCH (RBC) [Entitic mass] 31.1 pg Normal 27.0-32.0 [facility] Comment on above: Performed By: #### L 100.0100, L500.4100, L500.4050, L509.1000 #### [facility] [address] [place], [address] MCHC (RBC) [Mass/Vol] 33.8 g/dL Normal 32-36 [facility] Comment on above: Performed By: #### L 100.0100, L500.4100, L500.4050, L509.1000 #### [facility] [address] [place], [address] MCV (RBC) [Entitic vol] 92.0 fL Normal 80-94 [facility] Comment on above: Performed By: #### L 100.0100, L500.4100, L500.4050, L509.1000 #### [facility] [address] [place], [address] Monocytes/100 WBC (Bld) 7.6 % Normal 0-10 [facility] Comment on above: Performed By: #### L 100.0100, L500.4100, L500.4050, L509.1000 #### [facility] [address] [place], [address] Neutrophils/100 WBC (Bld) 63.9 % Normal 47-70 [facility] Comment on above: Performed By: #### L 100.0100, L500.4100, L500.4050, L509.1000 #### [facility] [address] [place], [address] Nucleated RBC (Bld) [#/Vol] 0 10*3/uL Normal 0-5 [facility] Comment on above: Performed By: #### L 100.0100, L500.4100, L500.4050, L509.1000 #### [facility] [address] [place], [address] Platelet mean volume (Bld) [Entitic vol] 8.5 fL Normal 6.2-12.0 [facility] Comment on above: Performed By: #### L 100.0100, L500.4100, L500.4050, L509.1000 #### [facility] [address] [place], [address] Platelets (Bld) [#/Vol] 196 10*3/uL Normal 150-450 [facility] Comment on above: Performed By: #### L 100.0100, L500.4100, L500.4050, L509.1000 #### [facility] [address] [place], [address] RBC (Bld) [#/Vol] 5.24 10*6/uL Normal 4.6-6.2 [facility] Comment on above: Performed By: #### L 100.0100, L500.4100, L500.4050, L509.1000 #### [facility] [address] [place], [address] RDW SD 41.6 fl Normal 35.1-43.9 [facility] Comment on above: Performed By: #### L 100.0100, L500.4100, L500.4050, L509.1000 #### [facility] [address] [place], [address] WBC (Bld) [#/Vol] 7.5 10*3/uL Normal 4.4-11.[address] [facility] Comment on above: Performed By: #### L 100.0100, L500.4100, L500.4050, L509.1000 #### [facility] [address] [place], [address] Carbon dioxide, total [Moles /volume] in Central venous bloodOrdered By: Justo Terry on 12-11-2024 CO2 [Moles/Vol] 23.6 mmol/L 21.0-32.0 [facility] Chloride assayOrdered By: Joanne Terry on 12-11-2024 Chloride [Moles/Vol] 105 mmol/L 98-108 [facility] Eosinophil percentageOrdered By: Justo Terry on 12-11-2024 Eosinophils/100 WBC (Bld) 2.3 % 0-5 [facility] Erythrocyte distribution wid th (RBC) [Ratio]Ordered By: Justo Terry on 12-11-2024 Erythrocyte distribution width (RBC) [Entitic vol] 41.6 fL 35.1-43.9 [facility] Erythrocyte distribution wid th ratioOrdered By: Justo Terry on 12-11-2024 Erythrocyte distribution width (RBC) [Ratio] 12.3 % 11.6-14.6 [facility] Erythrocyte distribution wid th standard deviationOrdered By: Justo Terry on 12-11-2024 Erythrocyte distribution width (RBC) [Ratio] 41.6 fl 35.1-43.9 [facility] GFR/1.73 sq M.predicted erna g non-blacks MDRD (S/P/Bld) [Vol rate/Area]Ordered By: Justo Terry on 12-11-2024 Estimated GFR (MDRD) Non-Af Amer 62 >60 [facility] Comment on above: mL/min/1.73m2 CKD-EP I Creatinine Equation (2020) Glomerular filtration rate ( GFR) estimation/1.73 sq m using serum, plasma, or whole bOrdered By: Justo Terry on 12-11-2024 GFR/1.73 sq M.predicted among non-blacks MDRD (S/P/Bld) [Vol rate/Area] 62 mL/min/{1.73_m2} >60 [facility] Comment on above: mL/min/1.73m2 CKD-EP I Creatinine Equation (2020) Hematocrit Auto (Bld) [Volum e fraction]Ordered By: Justo Terry on 12-11-2024 Hematocrit (Bld) [Volume fraction] 48.2 % 40-54 [facility] Hemoglobin A1con 12-11-2024 HbA1c (Bld) [Mass fraction] 7.1 % Normal <=5.6 [facility] Comment on above: Performed By: #### L 100.0100, L500.4100, L500.4050, L509.1000 #### [facility] [place], [address] Hemoglobin A1c percentageOrd ered By: Justo Terry on 12-11-2024 HbA1c (Bld) [Mass fraction] 7.1 % >5.7 [facility] Hemoglobin measurementOrdere d By: Justo Terry on 12-11-2024 Hemoglobin (Bld) [Mass/Vol] 16.3 g/dL 13.0-16.5 [facility] Immature granulocytes/100 WB C Auto (Bld)Ordered By: Justo Terry on 12-11-2024 Immature granulocytes/100 WBC (Bld) 0.400 % 0.0-0.9 [facility] Comment on above: IG% - Immature Granu locytes (promyelocytes, myelocytes and metamyelocytes) > 1% indicates that a LEFT SHIFT is Present. Lymphocytes Auto (Unsp spec) [#/Vol]Ordered By: Justo Terry on 12-11-2024 Lymphocytes (Bld) [#/Vol] 1.88 10*3/uL 0.83-4.51 [facility] Lymphocytes/100 WBC Auto (Un sp spec)Ordered By: Justo Terry on 12-11-2024 Lymphocytes/100 WBC (Bld) 25.0 % 19-41 [facility] MCV (mean corpuscular volume ) determinationOrdered By: Justo Terry on 12-11-2024 MCV (RBC) [Entitic vol] 92.0 fL 80-94 [facility] Mean corpuscular hemoglobin (MCH) determinationOrdered By: Justo Terry on 12-11-2024 MCH (RBC) [Entitic mass] 31.1 pg 27.0-32.0 [facility] Mean corpuscular hemoglobin concentration (MCHC) determinationOrdered By: Justo Terry on 12-11-2024 MCHC (RBC) [Mass/Vol] 33.8 g/dL 32-36 [facility] Mean platelet volume determi nationOrdered By: Justo Terry on 12-11-2024 Platelet mean volume (Bld) [Entitic vol] 8.5 fL 6.2-12.0 [facility] Monocyte percentageOrdered B y: Justo Terry on 12-11-2024 Monocytes/100 WBC (Bld) 7.6 % 0-10 [facility] Neutrophil percentageOrdered By: Justo Terry on 12-11-2024 Neutrophils/100 WBC (Bld) 63.9 % 47-70 [facility] Nucleated red blood cell per centageOrdered By: Justo Terry on 12-11-2024 Nucleated RBC/100 WBC (Bld) [Ratio] 0 % 0-5 [facility] Platelet countOrdered By: Joanne Terry on 12-11-2024 Platelets (Bld) [#/Vol] 196 10*3/uL 150-450 [facility] Potassium (Unsp spec) [Mass/ Vol]Ordered By: Justo Terry on 12-11-2024 Potassium [Moles/Vol] 4.1 mmol/L 3.3-5.1 [facility] Potassium measurement (mass/ volume)Ordered By: Justo Terry on 12-11-2024 Potassium (Unsp spec) [Mass/Vol] 4.1 mmol/L 3.3-5.1 [facility] RBC Auto (Bld) [#/Vol]Ordere d By: Justo Terry on 12-11-2024 RBC (Bld) [#/Vol] 5.24 10*6/uL 4.6-6.2 [facility] Serum creatinine measurement (mass/volume)Ordered By: Justo Terry on 12-11-2024 Creatinine [Mass/Vol] 1.28 mg/dL High 0.70-1.20 [facility] Serum glucose measurement (m ass/volume)Ordered By: Justo Terry on 12-11-2024 Glucose [Mass/Vol] 108 mg/dL High 70-[address] [facility] Serum or plasma albumin melanie urement (mass/volume)Ordered By: Justo Terry on 12-11-2024 Albumin [Mass/Vol] 4.5 g/dL 3.4-4.[address] [facility] Serum or plasma calcium melanie urement (mass/volume)Ordered By: Justo Terry on 12-11-2024 Calcium [Mass/Vol] 9.5 mg/dL 7.6-11.[address] [facility] Serum or plasma urea nitroge n measurement (mass/volume)Ordered By: Justo Terry on 12-11-2024 Urea nitrogen [Mass/Vol] 24 mg/dL High 4-19 [facility] Sodium levelOrdered By: Ariel Terry on 12-11-2024 Sodium [Moles/Vol] 140 mmol/L 133-[address] [facility] White blood cell (WBC) count Ordered By: Justo Terry on 12-11-2024 WBC (Bld) [#/Vol] 7.5 10*3/uL 4.4-11.[address] [facility] MRI SHOULDER W/O CONTRAST ELMER Day [...] 1:10:04 PM Ordering Provider: JACQUIE ROMERO Normal [facility] PSA Total+%Freeon 11-19-2024 PSA, FREE 1.47 ng/mL Normal N/A [facility] Comment on above: Result Comment: Sandee CRENSHAW methodology. Performed By: #### L 100.0100, L500.4100, L500.4050, L509.1000 #### [facility] [address] [place], [address] PSA, FREE % 28.9 Normal . [facility] Comment on above: Result Comment: The table [...] any other population of men. Performed at: [facility] [address] [place], [place] [id number] [employer] Machine: Santana Doran PhD, Phone: [phone] Performed By: #### L 100.0100, L500.4100, L500.4050, L509.1000 #### [facility] [address] [place], [place], [id number] (400) PSA, TOTAL ULTR 5.090 ng/mL Abnormal 0.000-4.000 [facility] Comment on above: Result Comment: Sandee martinez ECLSACHIN methodology. According to the [place] [employer], Serum PSA should decrease and [...] #### L 100.0100, L500.4100, L500.4050, L509.1000 #### [facility] [address] [place], [place], [id number] (670) Free PSA/Total PSA [Mass fra ction]Ordered By: Mauricio Morales on 11-18-2024 % Free Prostate Specific Ag Calc 28.9 % . [facility] Comment on above: The table below list [...] for any other population of men.Performed at: [id number] [place], [place] [id number] Director: Santana Doran PhD, Phone: [phone] Free prostate specific antig en (PSA) measurementOrdered By: Mauricio Morales on 11-18-2024 Free Prostate Specific Antigen 1.47 ng/mL N/A [facility] Comment on above: Amanuel ECLIA methodol ogy. PSA, totalOrdered By: Mauricio simpson on 11-18-2024 Prostate Specific Ag, Ultra-Sensitv 5.090 ng/mL High 0.000-4.000 [facility] Comment on above: Amanuel ECLIA methodol ogy.According to the [place] [employer], Serum PSAshould decrease and remain [...] PSA/Total PSA [Mass fraction] 28.9 % . [facility] Comment on above: The table below list [...] for any other population of men.Performed at: - [facility] [address] [id number] Director: Santana Doran PhD, Phone: [phone] PSA,Total - Annual Screenon 10-08-2024 PSA,TOT SCREEN 4.97 ng/mL High 0.00-4.00 [facility] Comment on above: Result Comment: This test was performed using the TPSA assay method for the [facility] chemistry system. Values obtained with different assay methods cannot be used interchangably. When changing PSA assays in the course of monitoring a patient, additional sequential testing should be carried out to confirm baseline values. Performed By: #### L 100.0100, L500.4100, L500.4050, L509.1000 #### [facility] [address] [place], [address] Screening prostate specific antigen (PSA) measurementOrdered By: Kacey Navarro on 10-08-2024 Prostate Specific Antigen Screen 4.97 ng/mL High 0.00-4.00 [facility] Comment on above: This test was perfor med using the TPSA assay method for the[facility] chemistry system. Values obtained with differentassay methods cannot be used interchangably.When changing PSA assays in the course of monitoring apatient, additional sequential testing should be carriedout to confirm baseline values. CBC W/Diff, Automatedon 11-0 Absolute Lymph 1.92 X10 3/uL Normal 0.83-4.51 [facility] Comment on above: Order Comment: Order Date: 05/19/25 Order Info: 0184-1 - CBCD Performed By: #### L 100.0100, L500.4100, L500.4050, L509.1000 #### [facility] [address] [place], [address] Absolute Neut 4.8 X10 3/uL Normal 2.0-7.7 [facility] Comment on above: Order Comment: Order Date: 05/19/25 Order Info: 0184-1 - CBCD Performed By: #### L 100.0100, L500.4100, L500.4050, L509.1000 #### [facility] [address] [place], [address] Basophils/100 WBC (Bld) 1.0 % Normal 0-1 [facility] Comment on above: Order Comment: Order Date: 05/19/25 Order Info: 0184-1 - CBCD Performed By: #### L 100.0100, L500.4100, L500.4050, L509.1000 #### [facility] [address] [place], [address] Eosinophils/100 WBC (Bld) 3.5 % Normal 0-5 [facility] Comment on above: Order Comment: Order Date: 05/19/25 Order Info: 0184-1 - CBCD Performed By: #### L 100.0100, L500.4100, L500.4050, L509.1000 #### [facility] [address] [place], [address] Erythrocyte distribution width (RBC) [Ratio] 12.2 % Normal 11.6-14.6 [facility] Comment on above: Order Comment: Order Date: 05/19/25 Order Info: 0184-1 - CBCD Performed By: #### L 100.0100, L500.4100, L500.4050, L509.1000 #### [facility] [address] [place], [address] Hematocrit (Bld) [Volume fraction] 47.6 % Normal 40-54 [facility] Comment on above: Order Comment: Order Date: 05/19/25 Order Info: 0184-1 - CBCD Performed By: #### L 100.0100, L500.4100, L500.4050, L509.1000 #### [facility] [address] [place], [address] Hemoglobin (Bld) [Mass/Vol] 16.0 g/dL Normal 13.0-16.5 [facility] Comment on above: Order Comment: Order Date: 05/19/25 Order Info: 0184-1 - CBCD Performed By: #### L 100.0100, L500.4100, L500.4050, L509.1000 #### [facility] [address] [place], [address] IG% 0.300 Normal 0.0-0.9 [facility] Comment on above: Order Comment: Order Date: 05/19/25 Order Info: 0184-1 - CBCD Result Comment: IG% - Immature Granulocytes (promyelocytes, myelocytes and metamyelocytes) > 1% indicates that a LEFT SHIFT is Present. Performed By: #### L 100.0100, L500.4100, L500.4050, L509.1000 #### [facility] [address] [place], [address] Lymphocytes/100 WBC (Bld) 24.9 % Normal 19-41 [facility] Comment on above: Order Comment: Order Date: 05/19/25 Order Info: 0184-1 - CBCD Performed By: #### L 100.0100, L500.4100, L500.4050, L509.1000 #### [facility] [address] [place], [address] MCH (RBC) [Entitic mass] 31.2 pg Normal 27.0-32.0 [facility] Comment on above: Order Comment: Order Date: 05/19/25 Order Info: 0184-1 - CBCD Performed By: #### L 100.0100, L500.4100, L500.4050, L509.1000 #### [facility] [address] [place], [address] MCHC (RBC) [Mass/Vol] 33.6 g/dL Normal 32-36 [facility] Comment on above: Order Comment: Order Date: 05/19/25 Order Info: 0184-1 - CBCD Performed By: #### L 100.0100, L500.4100, L500.4050, L509.1000 #### [facility] [address] [place], [address] MCV (RBC) [Entitic vol] 92.8 fL Normal 80-94 [facility] Comment on above: Order Comment: Order Date: 05/19/25 Order Info: 0184-1 - CBCD Performed By: #### L 100.0100, L500.4100, L500.4050, L509.1000 #### [facility] [address] [place], [address] Monocytes/100 WBC (Bld) 8.6 % Normal 0-10 [facility] Comment on above: Order Comment: Order Date: 05/19/25 Order Info: 0184-1 - CBCD Performed By: #### L 100.0100, L500.4100, L500.4050, L509.1000 #### [facility] [address] [place], [address] Neutrophils/100 WBC (Bld) 61.7 % Normal 47-70 [facility] Comment on above: Order Comment: Order Date: 05/19/25 Order Info: 0184-1 - CBCD Performed By: #### L 100.0100, L500.4100, L500.4050, L509.1000 #### [facility] [address] [place], [address] Nucleated RBC (Bld) [#/Vol] 0 10*3/uL Normal 0-5 [facility] Comment on above: Order Comment: Order Date: 05/19/25 Order Info: 0184-1 - CBCD Performed By: #### L 100.0100, L500.4100, L500.4050, L509.1000 #### [facility] [address] [place], [address] Platelet mean volume (Bld) [Entitic vol] 8.7 fL Normal 6.2-12.0 [facility] Comment on above: Order Comment: Order Date: 05/19/25 Order Info: 0184-1 - CBCD Performed By: #### L 100.0100, L500.4100, L500.4050, L509.1000 #### [facility] [address] [place], [address] Platelets (Bld) [#/Vol] 198 10*3/uL Normal 150-450 [facility] Comment on above: Order Comment: Order Date: 05/19/25 Order Info: 0184-1 - CBCD Performed By: #### L 100.0100, L500.4100, L500.4050, L509.1000 #### [facility] [address] [place], [address] RBC (Bld) [#/Vol] 5.13 10*6/uL Normal 4.6-6.2 [facility] Comment on above: Order Comment: Order Date: 05/19/25 Order Info: 0184-1 - CBCD Performed By: #### L 100.0100, L500.4100, L500.4050, L509.1000 #### [facility] [address] [place], [address] RDW SD 42.1 fl Normal 35.1-43.9 [facility] Comment on above: Order Comment: Order Date: 05/19/25 Order Info: 0184-1 - CBCD Performed By: #### L 100.0100, L500.4100, L500.4050, L509.1000 #### [facility] [address] [place], [address] WBC (Bld) [#/Vol] 7.7 10*3/uL Normal 4.4-11.[address] [facility] Comment on above: Order Comment: Order Date: 05/19/25 Order Info: 0184-1 - CBCD Performed By: #### L 100.0100, L500.4100, L500.4050, L509.1000 #### [facility] [address] [place], [address] Comprehensive Metabolic Prof ilon 07-15-2024 Albumin [Mass/Vol] 3.7 g/dL Normal 3.2-5.[address] [facility] Comment on above: Order Comment: Order Date: 05/19/25 Order Info: 0565-1 - PTHIN Performed By: #### L 100.0100, L500.4100, L500.4050, L509.1000 #### [facility] [address] [place], [address] Albumin/Globulin [Mass ratio] 1.0 {ratio} Normal 0.9-2.4 [facility] Comment on above: Order Comment: Order Date: 05/19/25 Order Info: 0565-1 - PTHIN Performed By: #### L 100.0100, L500.4100, L500.4050, L509.1000 #### [facility] [address] [place], [address] ALK P 68 U/L Normal 45-117 [facility] Comment on above: Order Comment: Order Date: 05/19/25 Order Info: 0565-1 - PTHIN Performed By: #### L 100.0100, L500.4100, L500.4050, L509.1000 #### [facility] [address] [place], [address] ALT [Catalytic activity/Vol] 37 U/L Normal 16-61 [facility] Comment on above: Order Comment: Order Date: 05/19/25 Order Info: 0565-1 - PTHIN Performed By: #### L 100.0100, L500.4100, L500.4050, L509.1000 #### [facility] [address] [place], [address] AST [Catalytic activity/Vol] 19 U/L Normal 15-37 [facility] Comment on above: Order Comment: Order Date: 05/19/25 Order Info: 0565-1 - PTHIN Performed By: #### L 100.0100, L500.4100, L500.4050, L509.1000 #### [facility] [address] [place], [address] Bilirubin [Mass/Vol] 0.40 mg/dL Normal 0.20-1.00 [facility] Comment on above: Order Comment: Order Date: 05/19/25 Order Info: 0565-1 - PTHIN Result Comment: For patients on eltrombopag therapy, use of Dimension [place] TBIL is not recommended. Performed By: #### L 100.0100, L500.4100, L500.4050, L509.1000 #### [facility] [address] [place], [address] BUN/CRE 22.8 RATIO High 10-20 [facility] Comment on above: Order Comment: Order Date: 05/19/25 Order Info: 0565-1 - PTHIN Performed By: #### L 100.0100, L500.4100, L500.4050, L509.1000 #### [facility] [address] [place], [address] CA,Total 9.5 mg/dL Normal 8.5-10.1 [facility] Comment on above: Order Comment: Order Date: 05/19/25 Order Info: 0565-1 - PTHIN Performed By: #### L 100.0100, L500.4100, L500.4050, L509.1000 #### [facility] [address] [place], [address] Chloride [Moles/Vol] 110 mmol/L High 98-107 [facility] Comment on above: Order Comment: Order Date: 05/19/25 Order Info: 0565-1 - PTHIN Performed By: #### L 100.0100, L500.4100, L500.4050, L509.1000 #### [facility] [address] [place], [address] CO2 [Moles/Vol] 24.0 mmol/L Normal 21.0-32.0 [facility] Comment on above: Order Comment: Order Date: 05/19/25 Order Info: 0565-1 - PTHIN Performed By: #### L 100.0100, L500.4100, L500.4050, L509.1000 #### [facility] [address] [place], [address] Creatinine [Mass/Vol] 1.36 mg/dL High 0.70-1.30 [facility] Comment on above: Order Comment: Order Date: 05/19/25 Order Info: 0565-1 - PTHIN Result Comment: The validity of the calculated GFR GFRAA in patients over 70 years has not been determined. Clinical correlation is essential. Performed By: #### L 100.0100, L500.4100, L500.4050, L509.1000 #### [facility] [address] [place], [address] EST GFR - AA 68 mL/min Normal >60 [facility] Comment on above: Order Comment: Order Date: 05/19/25 Order Info: 0565-1 - PTHIN Result Comment: Afri can [place] GFR Calc Performed By: #### L 100.0100, L500.4100, L500.4050, L509.1000 #### [facility] [address] [place], [address] GAP 6 Normal 5-15 [facility] Comment on above: Order Comment: Order Date: 05/19/25 Order Info: 0565-1 - PTHIN Performed By: #### L 100.0100, L500.4100, L500.4050, L509.1000 #### [facility] [address] [place], [address] GFR/1.73 sq M.predicted among non-blacks MDRD (S/P/Bld) [Vol rate/Area] 56 mL/min/{1.73_m2} Low >60 [facility] Comment on above: Order Comment: Order Date: 05/19/25 Order Info: 0565-1 - PTHIN Result Comment: Non- GFR Calc Performed By: #### L 100.0100, L500.4100, L500.4050, L509.1000 #### [facility] [address] [place], [address] Globulin (S) [Mass/Vol] 3.6 g/dL Normal 2.2-4.2 [facility] Comment on above: Order Comment: Order Date: 05/19/25 Order Info: 0565-1 - PTHIN Performed By: #### L 100.0100, L500.4100, L500.4050, L509.1000 #### [facility] [address] [place], [address] Glucose [Mass/Vol] 95 mg/dL Normal 74-[address] [facility] Comment on above: Order Comment: Order Date: 05/19/25 Order Info: 0565-1 - PTHIN Performed By: #### L 100.0100, L500.4100, L500.4050, L509.1000 #### [facility] [address] [place], [address] Potassium [Moles/Vol] 3.8 mmol/L Normal 3.5-5.1 [facility] Comment on above: Order Comment: Order Date: 05/19/25 Order Info: 0565-1 - PTHIN Performed By: #### L 100.0100, L500.4100, L500.4050, L509.1000 #### [facility] [address] [place], [address] Sodium [Moles/Vol] 139 mmol/L Normal 136-[address] [facility] Comment on above: Order Comment: Order Date: 05/19/25 Order Info: 0565-1 - PTHIN Performed By: #### L 100.0100, L500.4100, L500.4050, L509.1000 #### [facility] [address] [place], [address] T PROT 7.3 g/dL Normal 6.4-8.2 [facility] Comment on above: Order Comment: Order Date: 05/19/25 Order Info: 0565-1 - PTHIN Performed By: #### L 100.0100, L500.4100, L500.4050, L509.1000 #### [facility] [address] [place], [place], [address] Urea nitrogen [Mass/Vol] 31 mg/dL High 7-18 [facility] Comment on above: Order Comment: Order Date: 05/19/25 Order Info: 0565-1 - PTHIN Performed By: #### L 100.0100, L500.4100, L500.4050, L509.1000 #### [facility] [address] [place], [place], [address] Endocrinology Visit Reporton 07-15-2024 Endocrinology Visit Report [facility] [address] [place], [place] [address] OFFICE VISIT Date of Service: 07/15/24 MR#: [id number] Acct: [id number] Name: VLAD SIDDIQI Rep #: [id number] : 1960 Provider: Vandana Douglas Age/Sex: 64/M Location: [facility] Status: Signed Intake Vital Signs 01/15/24 14:51 [...] gauge x #350 ea 05/01/23 07/15/24 Rx 01/23 (Comfort EZ Pen [place]) fluticasone propionate 50 2 spray intranasal DAILY [...] unit (0.18 mL) subcut TID #48 mL 06/30/24 07/15/24 Rx unit/mL (3 mL) subcutaneous (insulin regular [...] appearing, c (more content not included)... Normal [facility] Lipid Profileon 07-15-2024 Cholesterol [Mass/Vol] 146 mg/dL Normal 200 [facility] Comment on above: Order Comment: Order Date: 05/19/25 Order Info: 0565-1 - PTHIN Result Comment: <200 mg/dL Desirable 200-240 mg/dL Borderline >240 mg/dL High Risk Performed By: #### L 100.0100, L500.4100, L500.4050, L509.1000 #### [facility] [address] [place], [address] Cholesterol in HDL [Mass/Vol] 51 mg/dL Normal [facility] Comment on above: Order Comment: Order Date: 05/19/25 Order Info: 0565-1 - PTHIN Result Comment: The drugs N-Acetylcysteine and Metamizole may falsely depress this assay. Reference Range HDL <40 mg/dL Low HDL Cholesterol HDL >or= 60 mg/dL High HDL Cholesterol Performed By: #### L 100.0100, L500.4100, L500.4050, L509.1000 #### [facility] [address] [place], [address] Cholesterol in LDL [Mass/Vol] 66 mg/dL Normal 0-130 [facility] Comment on above: Order Comment: Order Date: 05/19/25 Order Info: 0565-1 - PTHIN Performed By: #### L 100.0100, L500.4100, L500.4050, L509.1000 #### [facility] [address] [place], [address] Cholesterol in VLDL [Mass/Vol] 29 mg/dL Normal 5-40 [facility] Comment on above: Order Comment: Order Date: 05/19/25 Order Info: 0565-1 - PTHIN Performed By: #### L 100.0100, L500.4100, L500.4050, L509.1000 #### [facility] [address] [place], [address] Triglyceride [Mass/Vol] 144 mg/dL Normal [facility] Comment on above: Order Comment: Order Date: 05/19/25 Order Info: 0565-1 - PTHIN Result Comment: The drugs N-Acetylcysteine and Metamizole may falsely depress this assay. Serum Triglycerides Reference Interval Normal <150 mg/dL Borderline high 150 - 199 mg/dL High 200 - 499 mg/dL Very High > or = 500 mg/dL Performed By: #### L 100.0100, L500.4100, L500.4050, L509.1000 #### [facility] [address] [place], [address] PTHINon 07-15-2024 PTH 27.2 pg/mL Normal 18.4-80.1 [facility] Comment on above: Order Comment: Order Date: 05/19/25 Order Info: 0184-1 - CBCD Performed By: #### L 100.0100, L500.4100, L500.4050, L509.1000 #### [facility] [address] [place], [address] Phosphoruson 07-15-2024 Phosphate [Mass/Vol] 4.0 mg/dL Normal 2.5-4.9 [facility] Comment on above: Order Comment: Order Date: 05/19/25 Order Info: 0565-1 - PTHIN Performed By: #### L 100.0100, L500.4100, L500.4050, L509.1000 #### [facility] [address] [place], [address] Protein+Creatinine Ratio,Uri neon 07-15-2024 PROT:CRE RATIO 203 mg/g CRE High 0-200 [facility] Comment on above: Performed By: #### L 501.0900, L400.2010 #### [facility] [address] [place], [address] Protein (U) [Mass/Vol] 16.6 mg/dL High <11.9 [facility] Comment on above: Performed By: #### L 501.0900, L400.2010 #### [facility] [address] [place], [address] UR CREAT 81.90 mg/dL Normal NO RANGE EST. [facility] Comment on above: Performed By: #### L 501.0900, L400.2010 #### [facility] [address] [place], [address] Protein, Urine (Random)on Protein (U) [Mass/Vol] 17.9 mg/dL High <11.9 [facility] Comment on above: Performed By: #### L 100.0100, L500.4100, L500.4050, L509.1000 #### [facility] [address] [place], [address] Urinalysis, Routine (Dipstic k)on 07-15-2024 BILIRUBIN URINE Negative Normal Negative [facility] Comment on above: Order Comment: CLEAN CATCH Performed By: #### L 501.0900, L400.2010 #### [facility] [address] [place], [address] Clarity (U) Clear Normal Clear [facility] Comment on above: Order Comment: CLEAN CATCH Performed By: #### L 501.0900, L4.2010 #### [facility] [address] [place], [address] Color (U) Yellow Normal Yellow [facility] Comment on above: Order Comment: CLEAN CATCH Performed By: #### L 501.0900, L4.2010 #### [facility] [address] [place], [address] GLUCOSE, UR 1000 mg/dl Abnormal Normal [facility] Comment on above: Order Comment: CLEAN CATCH Performed By: #### L 501.0900, L4 #### [facility] [address] [place], [address] KETONE UR Negative Normal Negative [facility] Comment on above: Order Comment: CLEAN CATCH Performed By: #### L 501.0900, L400.2010 #### [facility] [address] [place], [address] LEUK ESTERASE Negative Normal Negative [facility] Comment on above: Order Comment: CLEAN CATCH Performed By: #### L 501.0900, L4 #### [facility] [address] [place], [address] Nitrite Ql (U) Negative Normal Negative [facility] Comment on above: Order Comment: CLEAN CATCH Performed By: #### L 501.0900, L400.2010 #### [facility] [address] [place], [address] OCCULT BLOOD-UR 10 /ul Abnormal Negative [facility] Comment on above: Order Comment: CLEAN CATCH Performed By: #### L 501.0900, L4.2010 #### [facility] [address] [place], [address] pH UR 6.0 Normal 5.0 - 8.0 [facility] Comment on above: Order Comment: CLEAN CATCH Performed By: #### L 501.0900, L4.2010 #### [facility] [address] [place], [address] PROT DIPSTX 30 mg/dl Abnormal Negative [facility] Comment on above: Order Comment: CLEAN CATCH Performed By: #### L 501.0900, L4 #### [facility] [address] [place], [address] SP.GR. DIPSTX 1.020 Normal 1.002-1.030 [facility] Comment on above: Order Comment: CLEAN CATCH Performed By: #### L 501.0900, L4 #### [facility] [address] [place], [address] UROBILI Normal Normal Normal [facility] Comment on above: Order Comment: CLEAN CATCH Performed By: #### L 501.0900, L400 #### [facility] [address] [place], [address] Vitamin D,25 Hydroxyon 07-15 Vitamin D 25-OH 62.4 ng/mL Normal [facility] Comment on above: Order Comment: Order Date: 05/19/25 Order Info: 0184-1 - CBCD Result Comment: Jillian min D 25(OH) Status Range Deficiency <20 ng/mL (50nmol/L) Insufficiency 20 - 30 ng/mL (50 - 75 nmol/L) Sufficiency 30 - 100 ng/mL (75 - 250 nmol/L) Toxicity >100 ng/mL (>250 nmol/L) Performed By: #### L 100.0100, L500.4100, L500.4050, L509.1000 #### [facility] [address] [place], [address] Laboratory - Hematology and Cell countson 10-15-2023 HbA1c (Bld) [Mass fraction] 7.0 % 4.2-6.3 [facility] Absolute lymphocyte countOrd ered By: Kacey Navarro on 09-27-2023 Lymphocytes Auto (Unsp spec) [#/Vol] 1.81 10*3/uL 0.83-4.51 [facility] Automated lymphocyte count a s percentage of total leukocytesOrdered By: Kacey Navarro on 09-27-2023 Lymphocytes/100 WBC Auto (Unsp spec) 29.6 % 19-41 [facility] Basophil percentageOrdered B y: Kacey Navarro on 09-27-2023 Basophil percentage 0 SEEN /hpf 0-5 [facility] Basophil percentage 3.6 mg/dL 2.5-4.9 [facility] Basophils/100 WBC (Bld) 1.0 % 0-1 [facility] Bilirubin [Mass/Vol] 0.50 mg/dL 0.20-1.00 [facility] Comment on above: For patients on eltr ombopag therapy, use of Dimension [place] TBIL is not recommended. Chloride [Moles/Vol] 111 mmol/L 98-107 [facility] Cholesterol [Mass/Vol] 135 mg/dL <200 [facility] Comment on above: <200 mg/dL Desirable 200-240 mg/dL Borderline >240 mg/dL High Risk Eosinophils/100 WBC (Bld) 3.3 % 0-5 [facility] Glucose [Mass/Vol] 105 mg/dL 74-[address] [facility] Comment on above: Fasting Glucose resu lt from 100 to 125 mg/dL suggests IMPAIRED HOMEOSTASIS per A.D.A. criteria. Hemoglobin (Bld) [Mass/Vol] 15.8 g/dL 13.0-16.5 [facility] Monocytes/100 WBC (Bld) 8.3 % 0-10 [facility] Neutrophils (Bld) [#/Vol] 3.5 10*3/uL 2.0-7.7 [facility] Neutrophils/100 WBC (Bld) 57.5 % 47-70 [facility] Potassium [Moles/Vol] 3.8 mmol/L 3.5-5.1 [facility] Protein [Mass/Vol] 7.4 g/dL 6.4-8.[address] [facility] Sodium [Moles/Vol] 142 mmol/L 136-[address] [facility] Triglyceride [Mass/Vol] 161 mg/dL <199 [facility] Comment on above: The drugs N-Acetylcy steine and Metamizole may falsely depress this assay.Serum Triglycerides Reference Interval Normal <150 mg/dL Borderline high 150 - 199 mg/dL High 200 - 499 mg/dL Very High > or = 500 mg/dL WBC (Bld) [#/Vol] 6.1 10*3/uL 4.4-11.[address] [facility] Bilirubin Test strip Ql (U)O rdered By: Kacey Navarro on 09-27-2023 Bilirubin Ql (U) Negative Negative [facility] Determination of erythrocyte mean corpuscular volume (MCV)Ordered By: Kacey Navarro on 09-27-2023 MCV (RBC) [Entitic vol] 93.6 fL 80-94 [facility] Erythrocyte distribution wid th ratioOrdered By: Kacey Navarro on 09-27-2023 Erythrocyte distribution width (RBC) [Ratio] 12.4 % 11.6-14.6 [facility] Erythrocyte distribution wid th standard deviationOrdered By: Kacey Navarro on 09-27-2023 Erythrocyte distribution width (RBC) [Entitic vol] 42.7 fL 35.1-43.9 [facility] Hematocrit Auto (Bld) [Volum e fraction]Ordered By: Kacey Navarro on 09-27-2023 Hematocrit (Bld) [Volume fraction] 49.4 % 40-54 [facility] High density lipoprotein (HD L) measurementOrdered By: Kacey Navarro on 09-27-2023 Cholesterol in HDL (Body fld) [Mass/Vol] 50 mg/dL >40 [facility] Comment on above: The drugs N-Acetylcy steine and Metamizole may falsely depress this assay. Reference Range HDL <40 mg/dL Low HDL Cholesterol HDL >or= 60 mg/dL High HDL Cholesterol Immature granulocytes/100 WB C Auto (Bld)Ordered By: Kacey Navarro on 09-27-2023 Immature granulocytes/100 WBC (Bld) 0.300 % 0.0-0.9 [facility] Comment on above: IG% - Immature Granu locytes (promyelocytes, myelocytes and metamyelocytes) > 1% indicates that a LEFT SHIFT is Present. Intact parathyroid hormone ( iPTH) measurementOrdered By: Kacey Navarro on 09-27-2023 Parathyrin.intact (Tissue fine needle aspirate) [Mass/Vol] 31.5 pg/mL 18.4-80.1 [facility] Ketones Test strip Ql (U)Ord ered By: Kacey Navarro on 09-27-2023 Ketones Ql (U) Negative Negative [facility] - Chemistry and C hemistry - challengeOrdered By: Kacey Navarro on 09-27-2023 Albumin/Globulin [Mass ratio] 0.9 {ratio} 0.9-2.4 [facility] ALP [Catalytic activity/Vol] 70 U/L 45-117 [facility] ALT [Catalytic activity/Vol] 55 U/L 16-61 [facility] CO2 [Moles/Vol] 25.0 mmol/L 21.0-32.0 [facility] Globulin (S) [Mass/Vol] 3.8 g/dL 2.2-4.2 [facility] Urea nitrogen/Creatinine [Mass ratio] 18.0 mg/mg 10-20 [facility] - Hematology and Cell countsOrdered By: Kacey Navarro on 09-27-2023 MCH (RBC) [Entitic mass] 29.9 pg 27.0-32.0 [facility] MCHC (RBC) [Mass/Vol] 32.0 g/dL 32-36 [facility] Nucleated RBC/100 WBC (Bld) [Ratio] 0 % 0-5 [facility] Platelets (Bld) [#/Vol] 216 10*3/uL 150-450 [facility] Low density lipoprotein (LDL ) cholesterol measurementOrdered By: Kacey Navarro on 09-27-2023 Cholesterol in LDL (Body fld) [Moles/Vol] 53 mg/dL 0-130 [facility] Mucus LM Ql (Urine sed)Order ed By: Kacey Navarro on 09-27-2023 Mucus Ql (Urine sed) 0 SEEN /hpf [facility] Nitrite Test strip Ql (U)Ord ered By: Kacey Navarro on 09-27-2023 Nitrite Ql (U) Negative Negative [facility] No Panel InformationOrdered By: Kacey Navarro on 09-27-2023 Estimated GFR (MDRD) Amer 61 mL/min >60 [facility] Comment on above: GFR Calc Estimated GFR (MDRD) Non-Af Amer 50 mL/min >60 [facility] Comment on above: Non- GFR Calc Urine RBC 0 SEEN /hpf 0-5 [facility] Vitamin D 25-Hydroxy 70.4 ng/mL [facility] Comment on above: Vitamin D 25(OH) Sta tus Range Deficiency <20 ng/mL (50nmol/L) Insufficiency 20 - 30 ng/mL (50 - 75 nmol/L) Sufficiency 30 - 100 ng/mL (75 - 250 nmol/L) Toxicity >100 ng/mL (>250 nmol/L) Platelet mean volume Steven-Ec ker (Bld) [Entitic vol]Ordered By: Kacey Navarro on 09-27-2023 Platelet mean volume (Bld) [Entitic vol] 9.0 fL 6.2-12.0 [facility] Protein Test strip Ql (U)Ord ered By: Kacey Navarro on 09-27-2023 Protein Ql (U) 15 mg/dl Negative [facility] RBC Auto (Bld) [#/Vol]Ordere d By: Kacey Navarro on 09-27-2023 RBC (Bld) [#/Vol] 5.28 10*6/uL 4.6-6.2 [facility] Serum or plasma calcium melanie urement (mass/volume)Ordered By: Kacey Navarro on 09-27-2023 Calcium [Mass/Vol] 8.9 mg/dL 8.5-10.[address] [facility] Serum or plasma creatinine m easurement (mass/volume)Ordered By: Kacey Navarro on 09-27-2023 Creatinine [Mass/Vol] 1.50 mg/dL 0.70-1.30 [facility] Comment on above: The validity of the calculated GFR & GFRAA in patients over 70 years has not been determined. Clinical correlation is essential. Serum or plasma thyroid stim ulating hormone (TSH) measurement (units/volume)Ordered By: Kacey Navarro on 09-27-2023 TSH Qn 1.50 uIU/mL 0.358-3.74 [facility] Serum or plasma urea nitroge n measurement (mass/volume)Ordered By: Kacey Navarro on 09-27-2023 Urea nitrogen [Mass/Vol] 27 mg/dL 7-18 [facility] Squamous epithelial cells de tection in urine sediment by light microscopyOrdered By: Kacey Navarro on 09-27-2023 Epithelial cells.squamous LM Ql (Urine sed) 0 SEEN /hpf 0-5 [facility] Thin prep Papanicolaou smear with manual screeningOrdered By: Kacey Navarro on 09-27-2023 Protein (U) [Mass/Vol] 18.2 mg/dL 0.0-11.8 [facility] Thin prep Papanicolaou smear with manual screening 3.6 g/dL 3.2-5.0 [facility] Thin prep Papanicolaou smear with manual screening 29 U/L 15-37 [facility] Thin prep Papanicolaou smear with manual screening 6 5-15 [facility] Urine blood detectionOrdered By: Kacey Navarro on 09-27-2023 RBC Ql (U) Negative Negative [facility] Urine clarityOrdered By: Todd Navarro on 09-27-2023 Clarity (U) Clear Clear [facility] Urine color determinationOrd ered By: Kacey Navarro on 09-27-2023 Color (U) Yellow Yellow [facility] Urine creatinine measurement (mass/volume)Ordered By: Kacey Navarro on 09-27-2023 Creatinine (U) [Mass/Vol] 69.00 mg/dL NO RANGE EST. [facility] Urine glucose detectionOrder ed By: Kacey Navarro on 09-27-2023 Glucose Ql (U) 1000 mg/dl Normal [facility] Urine leukocyte esterase det ection by dipstickOrdered By: Kacey Navarro on 09-27-2023 Leukocyte esterase Test strip Ql (U) Negative Negative [facility] Urine pHOrdered By: Kacey orozco on 09-27-2023 pH (U) 6.5 [pH] 5.0 - 8.0 [facility] Urine protein/creatinine mas s ratioOrdered By: Kacey Navarro on 09-27-2023 Protein/Creatinine (U) [Mass ratio] 264 mg/g CRE 0-200 [facility] Urine sediment bacteria coun t by microscopy (number/high power field)Ordered By: Kacey Navarro on 09-27-2023 Bacteria LM.HPF (Urine sed) [#/Area] 0 /[HPF] None Seen [facility] Urine specific gravity measu rementOrdered By: Kacey Navarro on 09-27-2023 Specific gravity (U) [Rel density] 1.015 1.002-1.030 [facility] Urine urobilinogen measureme ntOrdered By: Kacey Navarro on 09-27-2023 Urobilinogen Ql (U) Normal mg/dl Normal [facility] Very low density lipoprotein (VLDL) cholesterol measurementOrdered By: Kacey Navarro on 09-27-2023 Cholesterol in VLDL Calc [Moles/Vol] 32 mg/dL 5-40 [facility] Absolute lymphocyte countOrd ered By: Kacey Navarro on 05-16-2023 Lymphocytes Auto (Unsp spec) [#/Vol] 1.66 10*3/uL 0.83-4.51 [facility] Basophil percentageOrdered B y: Kacey Navarro on 05-16-2023 Basophil percentage 0 SEEN /hpf 0-5 [facility] Basophil percentage 2.8 mg/dL 2.5-4.9 [facility] Basophils/100 WBC (Bld) 0.9 % 0-1 [facility] Bilirubin [Mass/Vol] 0.40 mg/dL 0.20-1.00 [facility] Comment on above: For patients on eltr ombopag therapy, use of Dimension [place] TBIL is not recommended. Chloride [Moles/Vol] 109 mmol/L 98-107 [facility] Cholesterol [Mass/Vol] 126 mg/dL <200 [facility] Comment on above: <200 mg/dL Desirable 200-240 mg/dL Borderline >240 mg/dL High Risk Eosinophils/100 WBC (Bld) 3.9 % 0-5 [facility] Glucose [Mass/Vol] 178 mg/dL 74-[address] [facility] Comment on above: Fasting Glucose resu lt greater than or equal to 126 mg/dL suggests DIABETES MELLITUS per A.D.A. criteria. Neutrophils (Bld) [#/Vol] 4.1 10*3/uL 2.0-7.7 [facility] Neutrophils/100 WBC (Bld) 61.5 % 47-70 [facility] Potassium [Moles/Vol] 4.0 mmol/L 3.5-5.1 [facility] Protein [Mass/Vol] 7.3 g/dL 6.4-8.[address] [facility] Sodium [Moles/Vol] 140 mmol/L 136-[address] [facility] Triglyceride [Mass/Vol] 163 mg/dL <199 [facility] Comment on above: The drugs N-Acetylcy steine and Metamizole may falsely depress this assay.Serum Triglycerides Reference Interval Normal <150 mg/dL Borderline high 150 - 199 mg/dL High 200 - 499 mg/dL Very High > or = 500 mg/dL WBC (Bld) [#/Vol] 6.7 10*3/uL 4.4-11.[address] [facility] Bilirubin Test strip Ql (U)O rdered By: Kacey Navarro on 05-16-2023 Bilirubin Ql (U) Negative Negative [facility] Blood erythrocytes count (nu mber/volume)Ordered By: Kacey Navarro on 05-16-2023 RBC (Bld) [#/Vol] 5.28 10*6/uL 4.6-6.2 [facility] Blood hemoglobin measurement (mass/volume)Ordered By: Kacey Navarro on 05-16-2023 Hemoglobin (Bld) [Mass/Vol] 16.1 g/dL 13.0-16.5 [facility] Blood lymphocytes/100 leukoc ytesOrdered By: Kacey Navarro on 05-16-2023 Lymphocytes/100 WBC (Bld) 24.9 % 19-41 [facility] Blood monocytes/100 leukocyt esOrdered By: Kacey Navarro on 05-16-2023 Monocytes/100 WBC (Bld) 8.7 % 0-10 [facility] Blood platelet mean volumeOr dered By: Kacey Navarro on 05-16-2023 Platelet mean volume (Bld) [Entitic vol] 8.7 fL 6.2-12.0 [facility] Determination of erythrocyte mean corpuscular volume (MCV)Ordered By: Kacey Navarro on 05-16-2023 MCV (RBC) [Entitic vol] 92.2 fL 80-94 [facility] Hematocrit Auto (Bld) [Volum e fraction]Ordered By: Kacey Navarro on 05-16-2023 Hematocrit (Bld) [Volume fraction] 48.7 % 40-54 [facility] Ketones Test strip Ql (U)Ord ered By: Kacey Navarro on 05-16-2023 Ketones Ql (U) Negative Negative [facility] - Chemistry and C hemistry - challengeOrdered By: Kacey Navarro on 05-16-2023 ALP [Catalytic activity/Vol] 65 U/L 45-117 [facility] ALT [Catalytic activity/Vol] 44 U/L 16-61 [facility] CO2 [Moles/Vol] 26.0 mmol/L 21.0-32.0 [facility] Globulin (S) [Mass/Vol] 3.7 g/dL 2.2-4.2 [facility] Urea nitrogen/Creatinine [Mass ratio] 12.0 mg/mg 10-20 [facility] - Hematology and Cell countsOrdered By: Kacey Navarro on 05-16-2023 Erythrocyte distribution width (RBC) [Entitic vol] 42.5 fL 35.1-43.9 [facility] Erythrocyte distribution width (RBC) [Ratio] 12.5 % 11.6-14.6 [facility] Immature granulocytes/100 WBC (Bld) 0.100 % 0.0-0.9 [facility] Comment on above: IG% - Immature Granu locytes (promyelocytes, myelocytes and metamyelocytes) > 1% indicates that a LEFT SHIFT is Present. MCH (RBC) [Entitic mass] 30.5 pg 27.0-32.0 [facility] Nucleated RBC/100 WBC (Bld) [Ratio] 0 % 0-5 [facility] MCHC Auto (RBC) [Mass/Vol]Or dered By: Kacey Navarro on 05-16-2023 MCHC (RBC) [Mass/Vol] 33.1 g/dL 32-36 [facility] Mucus LM Ql (Urine sed)Order ed By: Kacey Navarro on 05-16-2023 Mucus Ql (Urine sed) 0 SEEN /hpf [facility] Nitrite Test strip Ql (U)Ord ered By: Kacey Navarro on 05-16-2023 Nitrite Ql (U) Negative Negative [facility] No Panel InformationOrdered By: Kacey Navarro on 05-16-2023 Estimated GFR (MDRD) Amer 61 mL/min >60 [facility] Comment on above: GFR Calc Estimated GFR (MDRD) Non-Af Amer 50 mL/min >60 [facility] Comment on above: Non- GFR Calc Parathyroid Hormone (Intact) 27.2 pg/mL 18.4-80.1 [facility] Vitamin D 25-Hydroxy 65.2 ng/mL [facility] Comment on above: Vitamin D 25(OH) Sta tus Range Deficiency <20 ng/mL (50nmol/L) Insufficiency 20 - 30 ng/mL (50 - 75 nmol/L) Sufficiency 30 - 100 ng/mL (75 - 250 nmol/L) Toxicity >100 ng/mL (>250 nmol/L) Platelets bldOrdered By: Todd Navarro on 05-16-2023 Platelets (Bld) [#/Vol] 227 10*3/uL 150-450 [facility] Protein Test strip Ql (U)Ord ered By: Kacey Navarro on 05-16-2023 Protein Ql (U) Negative Negative [facility] Serum or plasma albumin melanie urement (mass/volume)Ordered By: Kacey Navarro on 05-16-2023 Albumin [Mass/Vol] 3.6 g/dL 3.2-5.[address] [facility] Serum or plasma albumin/glob ulin mass ratioOrdered By: Kacey Navarro on 05-16-2023 Albumin/Globulin [Mass ratio] 1.0 {ratio} 0.9-2.4 [facility] Serum or plasma calcium melanie urement (mass/volume)Ordered By: Kacey Navarro on 05-16-2023 Calcium [Mass/Vol] 8.7 mg/dL 8.5-10.[address] [facility] Serum or plasma cholesterol in HDL measurement (mass/volume)Ordered By: Kacey Navarro on 05-16-2023 Cholesterol in HDL [Mass/Vol] 51 mg/dL >40 [facility] Comment on above: The drugs N-Acetylcy steine and Metamizole may falsely depress this assay. Reference Range HDL <40 mg/dL Low HDL Cholesterol HDL >or= 60 mg/dL High HDL Cholesterol Serum or plasma cholesterol in VLDL measurement (mass/volume)Ordered By: Kacey Navarro on 05-16-2023 Cholesterol in VLDL [Mass/Vol] 33 mg/dL 5-40 [facility] Serum or plasma creatinine m easurement (mass/volume)Ordered By: Kacey Navarro on 05-16-2023 Creatinine [Mass/Vol] 1.50 mg/dL 0.70-1.30 [facility] Comment on above: The validity of the calculated GFR & GFRAA in patients over 70 years has not been determined. Clinical correlation is essential. Serum or plasma low density lipoprotein (LDL) cholesterol measurement (mass/volume)Ordered By: Kacey Navarro on 05-16-2023 Cholesterol in LDL [Mass/Vol] 42 mg/dL 0-130 [facility] Serum or plasma urea nitroge n measurement (mass/volume)Ordered By: Kacey Navarro on 05-16-2023 Urea nitrogen [Mass/Vol] 18 mg/dL 7-18 [facility] Squamous epithelial cells de tection in urine sediment by light microscopyOrdered By: Kacey Navarro on 05-16-2023 Epithelial cells.squamous LM Ql (Urine sed) 0 SEEN /hpf 0-5 [facility] Thin prep Papanicolaou smear with manual screeningOrdered By: Kacey Navarro on 05-16-2023 Thin prep Papanicolaou smear with manual screening 24 U/L 15-37 [facility] Thin prep Papanicolaou smear with manual screening 5 5-15 [facility] Urine blood detectionOrdered By: Kacey Navarro on 05-16-2023 RBC Ql (U) Negative Negative [facility] RBC Ql (U) 0-5 SEEN /hpf 0-5 [facility] Urine clarityOrdered By: Todd Navarro on 05-16-2023 Clarity (U) Clear Clear [facility] Urine color determinationOrd ered By: Kacey Navarro on 05-16-2023 Color (U) Yellow Yellow [facility] Urine creatinine measurement (mass/volume)Ordered By: Kacey Navarro on 05-16-2023 Creatinine (U) [Mass/Vol] 67.20 mg/dL NO RANGE EST. [facility] Urine glucose detectionOrder ed By: Kacey Navarro on 05-16-2023 Glucose Ql (U) 1000 mg/dl Normal [facility] Urine leukocyte esterase det ection by dipstickOrdered By: Kacey Navarro on 05-16-2023 Leukocyte esterase Test strip Ql (U) Negative Negative [facility] Urine pHOrdered By: Kacey orozco on 05-16-2023 pH (U) 6.5 [pH] 5.0 - 8.0 [facility] Urine protein measurement (m ass/volume)Ordered By: Kacey Navarro on 05-16-2023 Protein (U) [Mass/Vol] 11.3 mg/dL 0.0-11.8 [facility] Urine protein/creatinine mas s ratioOrdered By: Kacey Navarro on 05-16-2023 Protein/Creatinine (U) [Mass ratio] 168 mg/g CRE 0-200 [facility] Urine sediment bacteria coun t by microscopy (number/high power field)Ordered By: Kacey Navarro on 05-16-2023 Bacteria LM.HPF (Urine sed) [#/Area] 0 /[HPF] None Seen [facility] Urine specific gravity measu rementOrdered By: Kacey Navarro on 05-16-2023 Specific gravity (U) [Rel density] 1.010 1.002-1.030 [facility] Urobilinogen Auto test strip Ql (U)Ordered By: Kacey Navarro on 05-16-2023 Urobilinogen Ql (U) Normal mg/dl Normal [facility] - Hematology and Cell countson 05-01-2023 HbA1c (Bld) [Mass fraction] 6.4 % 4.2-6.3 [facility] Basic metabolic 2000 panelon 02-14-2023 Anion gap [Moles/Vol] 7 mmol/L Normal 5-16 [facility] Comment on above: Order Comment: Speci men Type: BLOOD SPECIMENOrdering Facility: [facility] Address: [address] [place] [address] Performed By: #### 2 4321-2 ####[facility] LABORATORYCLIA [id number] [place] [address] [place] Calcium [Mass/Vol] 8.6 mg/dL Normal 8.5-10.5 [facility] Comment on above: Order Comment: Speci men Type: BLOOD SPECIMENOrdering Facility: [facility] Address: [address] [place] [address] Performed By: #### 2 4321-2 ####[facility] LABORATORYCLIA [id number] [place] [address] [place] Chloride [Moles/Vol] 107 mmol/L Normal 98-107 [facility] Comment on above: Order Comment: Speci men Type: BLOOD SPECIMENOrdering Facility: [facility] Address: [address] [place] [address] Performed By: #### 2 4321-2 ####[facility] LABORATORYCLIA [id number] [place] [address] [place] CO2 [Moles/Vol] 25 mmol/L Normal 21-32 [facility] Comment on above: Order Comment: Speci men Type: BLOOD SPECIMENOrdering Facility: [facility] Address: [address] [place] [address] Performed By: #### 2 4321-2 ####[facility] LABORATORYCLIA [id number] [place] [address] [place] Creatinine [Mass/Vol] 1.30 mg/dL Normal 0.50-1.40 [facility] Comment on above: Order Comment: Speci men Type: BLOOD SPECIMENOrdering Facility: [facility] Address: [address] [address] Result Comment: Lali ents receiving either N-Acetylcysteine (NAC) or Metamizole prior to venipuncture, may have falsely depressed results. Performed By: #### 2 4321-2 ####[facility] LABORATORYCLIA [id number] [place] [address] [place] ESTIMATED GLOMERULAR FILTRATION RATE 62 mL/min/1.73m??? Normal >=60 [facility] Comment on above: Order Comment: Soraida montoya Type: BLOOD SPECIMENOrdering Facility: [facility] Address: [address] [address] Result Comment: Germania mated Glomerular Filtration Rate [...] actual GFR. Performed By: #### 2 4321-2 ####[facility] LABORATORYCLIA [id number] [place] [address] [place] Glucose [Mass/Vol] 241 mg/dL High 70-100 [facility] Comment on above: Order Comment: Soraida montoya Type: BLOOD SPECIMENOrdering Facility: [facility] Address: [address] [address] Result Comment: The [place] Diabetes Association (ADA) provides guidance for cutoff [...] Standards of Medical Care in Diabetes 2016, [place] [employer]. Diabetes Care. 2016.39(Suppl 1). Results may be falsely elevated after the administration of Sulfapyridine. Results may be falsely depressed after the administration of Sulfasalazine. Performed By: #### 2 4321-2 ####[facility] LABORATORYCLIA [id number] [address] STATES OF [facility] Potassium [Moles/Vol] 4.4 mmol/L Normal 3.5-5.1 [facility] Comment on above: Order Comment: Speci men Type: BLOOD SPECIMENOrdering Facility: [facility] Address: [address] [place] [address] Performed By: #### 2 4321-2 ####[facility] LABORATORYCLIA [id number] [address] Sodium [Moles/Vol] 139 mmol/L Normal 136-145 [facility] Comment on above: Order Comment: Speci men Type: BLOOD SPECIMENOrdering Facility: [facility] Address: [address] [place] [address] Performed By: #### 2 4321-2 ####[facility] LABORATORYCLIA [id number] [address] STATES [facility] Urea nitrogen [Mass/Vol] 25 mg/dL Normal 7-26 [facility] Comment on above: Order Comment: Speci men Type: BLOOD SPECIMENOrdering Facility: [facility] Address: [address] [place] [address] Performed By: #### 2 4321-2 ####[facility] LABORATORYCLIA [id number] [address] CBC panel Auto (Bld)on 02-14 Erythrocyte distribution width (RBC) [Ratio] 11.8 % Normal 11.5-15.0 [facility] Comment on above: Order Comment: Speci men Type: BLOOD SPECIMENOrdering Facility: [facility] Address: [address] [place] [address] Performed By: #### 5 8410-2 ####[facility] LABORATORYCLIA [id number] [address] Hematocrit (Bld) [Volume fraction] 37.3 % Low 39.0-51.0 [facility] Comment on above: Order Comment: Speci men Type: BLOOD SPECIMENOrdering Facility: [facility] Address: [address] [place] [address] Performed By: #### 5 8410-2 ####[facility] LABORATORYCLIA [id number] [place] [address] [place] Hemoglobin (Bld) [Mass/Vol] 12.4 g/dL Low 13.0-17.0 [facility] Comment on above: Order Comment: Speci men Type: BLOOD SPECIMENOrdering Facility: [facility] Address: [address] [place] [address] Performed By: #### 5 8410-2 ####[facility] LABORATORYCLIA [id number] [address] STATES OF [place] MCH (RBC) [Entitic mass] 30.8 pg Normal 26.0-34.0 [facility] Comment on above: Order Comment: Speci men Type: BLOOD SPECIMENOrdering Facility: [facility] Address: [address] [place] [address] Performed By: #### 5 8410-2 ####[facility] LABORATORYCLIA [id number] [address] [place] MCHC (RBC) [Mass/Vol] 33.2 g/dL Normal 30.5-36.0 [facility] Comment on above: Order Comment: Speci men Type: BLOOD SPECIMENOrdering Facility: [facility] Address: [address] [place] [address] Performed By: #### 5 8410-2 ####[facility] LABORATORYCLIA [id number] [address] OF [place] MCV (RBC) [Entitic vol] 92.8 fL Normal 80.0-100.0 [facility] Comment on above: Order Comment: Speci men Type: BLOOD SPECIMENOrdering Facility: [facility] Address: [address] [place] [address] Performed By: #### 5 8410-2 ####[facility] LABORATORYCLIA [id number] [place] [address] [place] Nucleated RBC (Bld) [#/Vol] 10*3/uL Normal <0.01 [facility] Comment on above: Order Comment: Speci men Type: BLOOD SPECIMENOrdering Facility: [facility] Address: [address] [address] Performed By: #### 5 8410-2 ####[facility] LABORATORYCLIA [id number] [place] [address] [place] Platelet mean volume (Bld) [Entitic vol] 9.0 fL Normal 9.0-12.7 [facility] Comment on above: Order Comment: Speci men Type: BLOOD SPECIMENOrdering Facility: [facility] Address: [address] [place] [address] Performed By: #### 5 8410-2 ####[facility] LABORATORYCLIA [id number] [place] [address] [place] Platelets (Bld) [#/Vol] 185 10*3/uL Normal 150-400 [facility] Comment on above: Order Comment: Speci men Type: BLOOD SPECIMENOrdering Facility: [facility] Address: [address] [place] [address] Performed By: #### 5 8410-2 ####[facility] LABORATORYCLIA [id number] [place] [address] [place] RBC (Bld) [#/Vol] 4.02 10*6/uL Low 4.20-6.00 [facility] Comment on above: Order Comment: Speci men Type: BLOOD SPECIMENOrdering Facility: [facility] Address: [address] [place] [address] Performed By: #### 5 8410-2 ####[facility] LABORATORYCLIA [id number] [place] [address] [place] WBC (Bld) [#/Vol] 9.39 10*3/uL Normal 3.70-11.00 [facility] Comment on above: Order Comment: Speci men Type: BLOOD SPECIMENOrdering Facility: [facility] Address: [place] [address] Performed By: #### 5 8410-2 ####[facility] LABORATORYCLIA [id number] [place] [address] [place] CONSULT PROGon 02-14-2023 CONSULT PROG HNO ID: [id number] Author: Savana Camarena APRN.RADIOLOGICAL TECHNOLOGIST Service: ? Author Type: Nurse Practitioner [...] resolved hospital problems. * SIGNATURE: Savana Camarena APRN.RADIOLOGICAL TECHNOLOGIST PATIENT NAME: Vlad Siddiqi DATE: February 14, 2023 TIME: 1:20 PM PAGER: [facility] THERAPY NTon 02-14-2023 THERAPY NT HNO ID: [id number] Author: Génesis Kapadia PTA Service: Physical Therapy Author Type: Data Center Consultant Type: Therapy (PT/OT/Speech/Resp) Filed: 02/14/2023 10:33 AM Note Text: Attestation signed by Joelle Clarke PT at 02/14/2023 12:04 PM I reviewed and agree with the documentation corresponding to this therapy visit. 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 One fall 15 [...] easily within full range in all directions JH-HLM: 8: Walk 250 feet or more Learning/Educational [...] Diagnosis: Reduced mobility-other Interventions Provided: Gait Training (09113) Gait Training (17089) Treatment Minutes: 39 $ Gait Training (37002) Billed Units: 3 units Training AND Education Provided in: Advanced Balance Activities, Anatomy and Impact on Deficits, Assistive Device Use, Bed Mobility, Benefits of In-Hospital Mobil (more content not included)... 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 One fall 15 [...] Patient TREATMENT INTERVENTIONS: (more content not included)... [facility] ANES POSTPROC EVALon 023 ANES POSTPROC EVAL HNO ID: [id number] Author: Maxi Villavicencio, Service: ? Author Type: Physician Type: Anesthesia Postprocedure Evaluation Filed: 02/13/2023 11:39 AM Note Text: POST ANESTHESIA EVALUATION NOTE : 1960 Procedure Summary Date: 02/13/23 Room / Location: MR OR 05 / [facility] OR Anesthesia Start: 740 Anesthesia Stop: 1047 [...] February 13, 2023 TIME: 11:39 AM CSN: [id number] [facility] ANES PRE-OPon 02-13-2023 ANES PRE-OP HNO ID: [id number] Author: Maxi Villavicencio DO Service: ? Author Type: Physician Type: Anesthesia Preprocedure Evaluation Filed: 02/13/2023 7:05 AM Note Text: ANESTHESIOLOGY DAY OF SURGERY NOTE : 1960 Procedure Information Date/Time: 02/13/23729 Procedures: FUSION LUMBAR POSTERIOR LEVEL 1 (Spine [...] FOR SPINE SURGERY MORSELIZED (Spine Lumbar) Location: [facility] OR / OR Surgeons: Nik Leger DO Estimated [...] and consent discussed: yes. Patient / Responsible Democrat agrees to proceed: yes Patient / Surrogate [...] twice daily as needed (pain). 5-325mg - idmbxdnnkqx-ojvrjpyqs-b ilanter (TRELEGY ELLIPTA) 100-62.5-25 mcg inhalation powder [...] As needed per implanted glucose monitor) - Zelienople-3 Fatty Acids 500 mg cap Take 1,000 [...] 2 weeks prior to surgery - Insulin Kent, Disposable, (PEN NEEDLES) 31 gauge x 1/4 [...] results. This contains (more content not included)... [facility] BRIEF OP NOTon 02-13-2023 BRIEF OP NOT HNO ID: [id number] Author: Nik Leger DO Service: Orthopaedic Surgery Author Type: Physician Type: Brief Op Note Filed: 02/13/2023 10:20 AM Note Text: BRIEF OPERATIVE / PROCEDURE NOTE LOG ID: [id number] SURGERY/PROCEDURE DATE: 02/13/2023 INCISION/PROCEDURE START TIME: 8:20 AM INCISION CLOSE/PROCEDURE END TIME: SURGEON(S)/PROCEDURALIS T(S) AND PARK GUARD(S): Surgeon(s) and Role: * Nik Leger DO - Primary Residential Sales Associate: John Young SA SURGERY/PROCEDURE(S): Posterior lateral fusion [...] DATE: February 13, 2023 TIME: 10:19 AM [facility] Basic metabolic 2000 panelon 02-13-2023 Anion gap [Moles/Vol] 7 mmol/L Normal 5-16 [facility] Comment on above: Order Comment: Speci men Type: BLOOD SPECIMENOrdering Facility: [facility] Address: [address] [address] Performed By: #### 2 4321-2 ####[facility] LABORATORYCLIA [id number] [place] [address] [place] Calcium [Mass/Vol] 9.3 mg/dL Normal 8.5-10.5 [facility] Comment on above: Order Comment: Speci men Type: BLOOD SPECIMENOrdering Facility: [facility] Address: [address] [address] Performed By: #### 2 4321-2 ####[facility] LABORATORYCLIA [id number] [place] [address] [place] Chloride [Moles/Vol] 106 mmol/L Normal 98-107 [facility] Comment on above: Order Comment: Speci men Type: BLOOD SPECIMENOrdering Facility: [facility] Address: [address] [address] Performed By: #### 2 4321-2 ####[facility] LABORATORYCLIA [id number] [place] [address] [place] CO2 [Moles/Vol] 26 mmol/L Normal 21-32 [facility] Comment on above: Order Comment: Speci men Type: BLOOD SPECIMENOrdering Facility: [facility] Address: [address] [address] Performed By: #### 2 4321-2 ####[facility] LABORATORYCLIA [id number] [place] [address] [place] Creatinine [Mass/Vol] 1.33 mg/dL Normal 0.50-1.40 [facility] Comment on above: Order Comment: Speci men Type: BLOOD SPECIMENOrdering Facility: [facility] Address: [address] [place] [address] Result Comment: Lali ents receiving either N-Acetylcysteine (NAC) or Metamizole prior to venipuncture, may have falsely depressed results. Performed By: #### 2 4321-2 ####[facility] LABORATORYCLIA [id number] [place] [address] [place] ESTIMATED GLOMERULAR FILTRATION RATE 60 mL/min/1.73m??? Normal >=60 [facility] Comment on above: Order Comment: Soraida motnoya Type: BLOOD SPECIMENOrdering Facility: [facility] Address: [address] [place] [address] Result Comment: Germania mated Glomerular Filtration Rate [...] actual GFR. Performed By: #### 2 4321-2 ####[facility] LABORATORYCLIA [id number] [place] [address] [place] Glucose [Mass/Vol] 272 mg/dL High 70-100 [facility] Comment on above: Order Comment: Soraida montoya Type: BLOOD SPECIMENOrdering Facility: [facility] Address: [address] [place] [address] Result Comment: The [place] Diabetes Association (ADA) provides guidance for cutoff [...] Standards of Medical Care in Diabetes 2016, [place] [employer]. Diabetes Care. 2016.39(Suppl 1). Results may be falsely elevated after the administration of Sulfapyridine. Results may be falsely depressed after the administration of Sulfasalazine. Performed By: #### 2 4321-2 ####[facility] LABORATORYCLIA [id number] [place] [id number] [place] Potassium [Moles/Vol] 4.2 mmol/L Normal 3.5-5.1 [facility] Comment on above: Order Comment: Speci men Type: BLOOD SPECIMENOrdering Facility: [facility] Address: [address] [address] Performed By: #### 2 4321-2 ####[facility] LABORATORYCLIA [id number] [place] [address] [place] Sodium [Moles/Vol] 139 mmol/L Normal 136-145 [facility] Comment on above: Order Comment: Speci men Type: BLOOD SPECIMENOrdering Facility: [facility] Address: [address] [address] Performed By: #### 2 4321-2 ####[facility] LABORATORYCLIA [id number] [address] [place] Urea nitrogen [Mass/Vol] 20 mg/dL Normal 7-26 [facility] Comment on above: Order Comment: Speci men Type: BLOOD SPECIMENOrdering Facility: [facility] Address: [address] [address] Performed By: #### 2 4321-2 ####[facility] LABORATORYCLIA [id number] [address] OF [facility] CONFIRM BLOOD TYPEon 023 ABO O Normal [facility] Comment on above: Order Comment: Speci men Type: BLOOD SPECIMENOrdering Facility: [facility] Address: [address] [address] Performed By: #### C ONABO ####[facility] BLOOD BANKCLIA [id number] [place] [address] [place] Rh Nom (Bld) Positive Normal [facility] Comment on above: Order Comment: Speci men Type: BLOOD SPECIMENOrdering Facility: [facility] Address: [address] [address] Performed By: #### C ONABO ####[facility] BLOOD BANKCLIA [id number] [address] [facility] CONSULTon 02-13-2023 CONSULT HNO ID: [id number] Author: Vicki Gonzalez MD Service: Hospital Medicine [...] back H/O cardiovascular stress test 01/23/2023 at [facility] Herpes zoster without mention of complication [...] DX W/COLLJ SPEC WHEN PFRMD 09/13/2006 repeat [id number] COLONOSCOPY FLX DX W/COLLJ SPEC WHEN PFRMD [...] Disp: , Rfl: , 02/13/2023 at 0430 psfhkgqouhd-ehhlmrxrz-l ilanter (TRELEGY ELLIPTA) 100-62.5-25 mcg inhalation powder, [...] Disp: , Rfl: , 02/13/2023 at 0430 Zelienople-3 Fatty Acids 500 mg cap, Take 1,000 mg by mouth twice daily., Disp: , Rfl: lisinopril (ZESTRIL, PRINIVIL) 20 mg tablet, Take 20 mg by mouth every morning., Disp: , Rfl: atorvastatin (LIPITOR) 20 mg tablet, Take 20 mg by mouth daily at bedtime., Disp: , Rfl: aspirin, ent (more content not included)... [facility] HISTORY PHYSICALon HISTORY PHYSICAL HNO ID: [id number] Author: Nik Leger DO Service: ? Author [...] DATE: February 13, 2023 TIME: 7:28 AM [facility] NURSING PROGon 02-13-2023 NURSING PROG HNO ID: [id number] Author: Lorenza Gomez RN Service: ? Author Type: Registered Nurse Type: Nursing Progress Note Filed: 02/13/2023 11:14 PM Note Text: Pt arrived from PACU via bed. Pt alert AND oriented x 3. Oriented to room AND call light. Instructed on CANDDB, IS use AND ankle pumps. Pt states understanding. Call light w/I reach AND side rails up x 2 [facility] OPERATIVE NOon 02-13-2023 OPERATIVE NO HNO ID: [id number] Author: Nik Leger DO Service: Orthopaedic Surgery Author Type: Physician Type: Operative Report Filed: 02/14/2023 11:23 AM Note Text: [facility] - Operative Notes VLAD SIDDIQI : 1960 AGE: 63 SEX: M [facility]: [id number] [facility]: LOCATION: [place] [address] ATTENDING PHYSICIAN: DATE OF SERVICE: 02/13/2023 PREOPERATIVE [...] gentleman who presented to my office from [facility]. This is a gentleman who has seen Pain Management over in [place]. Had epidural steroid injections which gave him [...] so the patient was shifted down to [facility]. The risks, benefits and alternative methods [...] confirmed with Dr. Moses from Radiology per [facility] protocol. I then extended my exposure out [...] I drilled initial hole. I used a [employer] Investments pedicle finder. I used a ball-tip probe to confirm all 4 ruiz were intact. I measured my length, my pedicle screw off the anterior wall. My diameter of my pedicle screw was chosen off my preoperative CT scan. I tapped, using my ball-tip probe again to confirm the ruiz were intact and placed my cortical fix Expedium screw from [employer]. Now we placed 8 mm diameters at each level and on the left at L4 was a 55 mm length, the right was a 50 mm length, (more content not included)... [facility] THERAPY NTon 02-13-2023 THERAPY NT HNO ID: [id number] Author: Ela Hope, PT, DPT Service: Physical Therapy Author Type: Physical Therapist Type: Therapy (PT/OT/Speech/Resp) Filed: 02/13/2023 2:55 PM Note Text: Physical Therapy Evaluation SERVICE DATE: 02/13/2023 SERVICE TIME: 1416 to 1448 ROOM: [place] [address] Recommended Discharge Disposition: Home Recommended Discharge Equipment: [...] Equipment Owned: Commode- Raised, Cane, Walker- Wheeled, Stenotypist, Sock Aid Prior Functional Level: Within Functional Limits Prior Functional Level Comments: REGISTERED NURSE FIRST ASSISTANT denies use of AD. One fall 15 [...] Reduced mobility-other Interventions Provided: Evaluation, Therapeutic Activity (82529) $ Evaluation-Low (19442) Billed Units: 1 unit Therapeutic Activity (90720) Treatment Minutes: 17 $ Therapeutic Activity (79924) Billed Units: 1 unit Training AND Education Provided in: Advanced Balance Activities The Following Therapeutic Skills Were Used: Cues for Sequencing/Proper Technique for Activity Timed Code Treatment (minutes): 17 Skilled Treatment Time (minutes): 32 Please see discipline specific clinical documentation flowsheet for complete details for this therapy evaluation/treatment. SIGNATURE: Ela Hope PT, DPT PATIENT NAME: Vlad Siddiqi DATE: February 13, 2023 TIME: 2:55 PM [facility] XR ABDOMEN 1V SUPINEon 02-13 XR ABDOMEN [...] limited ultrasound to assess for ureteral jets. Development Manager: [facility] Transcribe Date/Time: Feb 13 2023 6:40A Dictated by : JEFFREY MELTON MD This examination was interpreted and the report reviewed and electronically signed by: JEFFREY MELTON MD on Feb 13 2023 6:44AM EST [id number] [facility] XR FLUOROSCOPYon 02-13-2023 XR FLUOROSCOPY * * [...] seconds fluoroscopy time utilized by Dr. Leger. Development Manager: [facility] Transcribe Date/Time: Feb 13 2023 11:27A Dictated by : NIKUNJ MOSES MD This examination was interpreted and the report reviewed and electronically signed by: NIKUNJ MOSES MD on Feb 13 2023 11:31AM EST [id number] [facility] XR LUMBAR 2V AP/LATon 2022 XR [...] surgical marking device is positioned at L5. Development Manager: [facility] Transcribe Date/Time: Feb 13 2023 8:41A Dictated by : NIKUNJ MOSES MD This examination was interpreted and the report reviewed and electronically signed by: NIKUNJ MOSES MD on Feb 13 2023 8:42AM EST [id number] Normal [facility] Bacteria Ur Culton 3 Bacteria identified Cx Nom (U) CULTURE, URINE: <10,000 CFU/ml Normal Urogenital Debbie Normal [facility] Comment on above: Performed By: #### 6 30-4 ####[facility] [id number] [place] [address] [place] Basic metabolic 2000 panelon 01-31-2023 Anion gap [Moles/Vol] 5 mmol/L Normal 5-16 [facility] Comment on above: Order Comment: Speci men Type: BLOOD SPECIMEN Ordering Facility: [facility] Address: [address] [id number] Performed By: #### 2 4321-2 #### [facility] CLIA [id number] [address] [place] [address] [place] Calcium [Mass/Vol] 9.3 mg/dL Normal 8.5-10.5 [facility] Comment on above: Order Comment: Speci men Type: BLOOD SPECIMEN Ordering Facility: [facility] Address: [address] [phone] Performed By: #### 2 4321-2 #### [facility] CLIA [id number] [address] [place] [address] [place] Chloride [Moles/Vol] 105 mmol/L Normal 98-107 [facility] Comment on above: Order Comment: Speci men Type: BLOOD SPECIMEN Ordering Facility: [facility] Address: [address] [address] Performed By: #### 2 4321-2 #### [facility] CLIA [id number] [address] [place] [address] [place] CO2 [Moles/Vol] 28 mmol/L Normal 21-32 [facility] Comment on above: Order Comment: Speci men Type: BLOOD SPECIMEN Ordering Facility: [facility] Address: [address] [address] Performed By: #### 2 4321-2 #### [facility] CLIA [id number] [address] [place] [address] [place] Creatinine [Mass/Vol] 1.32 mg/dL Normal 0.50-1.40 [facility] Comment on above: Order Comment: Speci men Type: BLOOD SPECIMEN Ordering Facility: [facility] Address: [address] [place] [address] Result Comment: Lali ents receiving either N-Acetylcysteine (NAC) or Metamizole prior to venipuncture, may have falsely depressed results. Performed By: #### 2 4321-2 #### [facility] CLIA [id number] [address] [place] [address] [place] ESTIMATED GLOMERULAR FILTRATION RATE 61 mL/min/1.73m??? Normal >=60 [facility] Comment on above: Order Comment: Speci men Type: BLOOD SPECIMEN Ordering Facility: [facility] Address: [address] [place] [address] Result Comment: Germania mated Glomerular Filtration Rate [...] GFR. Performed By: #### 2 4321-2 #### [facility] CLIA [id number] [address] [place] [address] [place] Glucose [Mass/Vol] 188 mg/dL High 70-100 [facility] Comment on above: Order Comment: Soraida montoya Type: BLOOD SPECIMEN Ordering Facility: [facility] Address: [address] [place] [address] Result Comment: The [place] Diabetes Association (ADA) provides guidance for cutoff [...] Standards of Medical Care in Diabetes 2016, [place] Diabetes Association. Diabetes Care. 2016.39(Suppl 1). Results may be falsely elevated after the administration of Sulfapyridine. Results may be falsely depressed after the administration of Sulfasalazine. Performed By: #### 2 4321-2 #### [facility] CLIA [id number] [address] [place] [address] [place] Potassium [Moles/Vol] 4.3 mmol/L Normal 3.5-5.1 [facility] Comment on above: Order Comment: Soraida montoya Type: BLOOD SPECIMEN Ordering Facility: [facility] Address: [address] [place] [address] Performed By: #### 2 4321-2 #### [facility] CLIA [id number] [address] [place] [address] [place] Sodium [Moles/Vol] 138 mmol/L Normal 136-145 [facility] Comment on above: Order Comment: Soraida montoya Type: BLOOD SPECIMEN Ordering Facility: [facility] Address: [address] [place] [address] Performed By: #### 2 4321-2 #### [facility] CLIA [id number] [address] [place] [address] [place] Urea nitrogen [Mass/Vol] 29 mg/dL High 7- [facility] Comment on above: Order Comment: Speci men Type: BLOOD SPECIMEN Ordering Facility: [facility] Address: [address] [place] [address] Performed By: #### 2 4321-2 #### [facility] CLIA [id number] [address] [place] [address] [place] CBC W Auto Differential pane l (Bld)on 01-31-2023 Basophils (Bld) [#/Vol] 0.04 10*3/uL Normal <0.11 [facility] Comment on above: Order Comment: Speci men Type: BLOOD SPECIMEN Ordering Facility: [facility] Address: [address] [place] [address] Performed By: #### 5 7021-8, 06833-8 #### [facility] CLIA [id number] [address] [place] [address] [place] Basophils/100 WBC (Bld) 0.8 % Normal [facility] Comment on above: Order Comment: Speci men Type: BLOOD SPECIMEN Ordering Facility: [facility] Address: [address] [place] [address] Performed By: #### 5 7021-8, 31028-0 #### [facility] CLIA [id number] [address] [place] [address] [place] Differential cell count method Nom (Bld) Auto Normal [facility] Comment on above: Order Comment: Speci men Type: BLOOD SPECIMEN Ordering Facility: [facility] Address: [address] [place] [address] Performed By: #### 5 7021-8, 01231-0 #### [facility] CLIA [id number] [address] [place] [address] [place] Eosinophils (Bld) [#/Vol] 0.15 10*3/uL Normal <0.46 [facility] Comment on above: Order Comment: Speci men Type: BLOOD SPECIMEN Ordering Facility: [facility] Address: [address] [address] Performed By: #### 5 7021-8, 87865-8 #### [facility] CLIA [id number] [address] [place] [address] [place] Eosinophils/100 WBC (Bld) 3.0 % Normal [facility] Comment on above: Order Comment: Speci men Type: BLOOD SPECIMEN Ordering Facility: [facility] Address: [address] [address] Performed By: #### 5 7021-8, 33405-5 #### [facility] CLIA [id number] [address] [place] [address] [place] Erythrocyte distribution width (RBC) [Ratio] 12.2 % Normal 11.5-15.0 [facility] Comment on above: Order Comment: Speci men Type: BLOOD SPECIMEN Ordering Facility: [facility] Address: [address] [address] Performed By: #### 5 7021-8, 29844-5 #### [facility] CLIA [id number] [address] [place] [address] [place] Hematocrit (Bld) [Volume fraction] 43.6 % Normal 39.0-51.0 [facility] Comment on above: Order Comment: Speci men Type: BLOOD SPECIMEN Ordering Facility: [facility] Address: [address] [address] Performed By: #### 5 7021-8, 67816-2 #### [facility] CLIA [id number] [address] [place] [address] [place] Hemoglobin (Bld) [Mass/Vol] 14.9 g/dL Normal 13.0-17.0 [facility] Comment on above: Order Comment: Speci men Type: BLOOD SPECIMEN Ordering Facility: [facility] Address: [address] [address] Performed By: #### 5 7021-8, 29268-2 #### [facility] CLIA [id number] [address] [place] [address] [place] Immature granulocytes (Bld) [#/Vol] 10*3/uL Normal <0.10 [facility] Comment on above: Order Comment: Speci men Type: BLOOD SPECIMEN Ordering Facility: [facility] Address: [address] [place] [address] Performed By: #### 5 7021-8, 34631-7 #### [facility] CLIA [id number] [address] [place] [address] [place] Immature granulocytes/100 WBC (Bld) 0.2 % Normal [facility] Comment on above: Order Comment: Speci men Type: BLOOD SPECIMEN Ordering Facility: [facility] Address: [address] [place] [address] Performed By: #### 5 7021-8, 98720-0 #### [facility] CLIA [id number] [address] [place] [address] [place] Lymphocytes (Bld) [#/Vol] 1.35 10*3/uL Normal 1.00-4.00 [facility] Comment on above: Order Comment: Speci men Type: BLOOD SPECIMEN Ordering Facility: [facility] Address: [address] [place] [address] Performed By: #### 5 7021-8, 41769-0 #### [facility] CLIA [id number] [address] [place] [address] [place] Lymphocytes/100 WBC (Bld) 27.0 % Normal [facility] Comment on above: Order Comment: Speci men Type: BLOOD SPECIMEN Ordering Facility: [facility] Address: [address] [place] [address] Performed By: #### 5 7021-8, 63243-2 #### [facility] CLIA [id number] [address] [place] [address] [place] MCH (RBC) [Entitic mass] 31.2 pg Normal 26.0-34.0 [facility] Comment on above: Order Comment: Speci men Type: BLOOD SPECIMEN Ordering Facility: [facility] Address: [address] [address] Performed By: #### 5 7021-8, 28624-5 #### [facility] CLIA [id number] [address] [place] [address] [place] MCHC (RBC) [Mass/Vol] 34.2 g/dL Normal 30.5-36.0 [facility] Comment on above: Order Comment: Speci men Type: BLOOD SPECIMEN Ordering Facility: [facility] Address: [address] [address] Performed By: #### 5 7021-8, 74457-0 #### [facility] CLIA [id number] [address] [place] [address] [place] MCV (RBC) [Entitic vol] 91.4 fL Normal 80.0-100.0 [facility] Comment on above: Order Comment: Speci men Type: BLOOD SPECIMEN Ordering Facility: [facility] Address: [address] Performed By: #### 5 7021-8, 38694-1 #### [facility] CLIA [id number] [address] [place] [address] [place] Monocytes (Bld) [#/Vol] 0.42 10*3/uL Normal <0.87 [facility] Comment on above: Order Comment: Speci men Type: BLOOD SPECIMEN Ordering Facility: [facility] Address: [address] Performed By: #### 5 7021-8, 45496-9 #### [facility] CLIA [id number] [address] [place] [address] [place] Monocytes/100 WBC (Bld) 8.4 % Normal [facility] Comment on above: Order Comment: Speci men Type: BLOOD SPECIMEN Ordering Facility: [facility] Address: [address] Performed By: #### 5 7021-8, 24804-2 #### [facility] CLIA [id number] [address] [place] [address] [place] Neutrophils (Bld) [#/Vol] 3.03 10*3/uL Normal 1.45-7.50 [facility] Comment on above: Order Comment: Speci men Type: BLOOD SPECIMEN Ordering Facility: [facility] Address: [address] [place] [address] Performed By: #### 5 7021-8, 54033-7 #### [facility] CLIA [id number] [address] [place] [address] [place] Neutrophils/100 WBC (Bld) 60.6 % Normal [facility] Comment on above: Order Comment: Speci men Type: BLOOD SPECIMEN Ordering Facility: [facility] Address: [address] [place] [address] Performed By: #### 5 7021-8, 48280-6 #### [facility] CLIA [id number] [address] [place] [address] [place] Nucleated RBC (Bld) [#/Vol] 10*3/uL Normal <0.01 [facility] Comment on above: Order Comment: Speci men Type: BLOOD SPECIMEN Ordering Facility: [facility] Address: [address] [place] [address] Performed By: #### 5 7021-8, 58957-4 #### [facility] CLIA [id number] [address] [place] [address] [place] Nucleated RBC/100 WBC (Bld) [Ratio] 0.0 /100 WBC Normal [facility] Comment on above: Order Comment: Speci men Type: BLOOD SPECIMEN Ordering Facility: [facility] Address: [address] [place] [address] Performed By: #### 5 7021-8, 25490-8 #### [facility] CLIA [id number] [address] [place] [address] [place] Platelet mean volume (Bld) [Entitic vol] 8.7 fL Low 9.0-12.7 [facility] Comment on above: Order Comment: Speci men Type: BLOOD SPECIMEN Ordering Facility: [facility] Address: [address] [phone] Performed By: #### 5 7021-8, 27907-2 #### [facility] CLIA [id number] [address] [place] [address] [place] Platelets (Bld) [#/Vol] 210 10*3/uL Normal 150-400 [facility] Comment on above: Order Comment: Speci men Type: BLOOD SPECIMEN Ordering Facility: [facility] Address: [address] [address] Performed By: #### 5 7021-8, 74100-2 #### [facility] CLIA [id number] [address] [place] [address] [place] RBC (Bld) [#/Vol] 4.77 10*6/uL Normal 4.20-6.00 [facility] Comment on above: Order Comment: Speci men Type: BLOOD SPECIMEN Ordering Facility: [facility] Address: [address] Performed By: #### 5 7021-8, 92862-1 #### [facility] CLIA [id number] [address] [place] [address] [place] WBC (Bld) [#/Vol] 5.00 10*3/uL Normal 3.70-11.00 [facility] Comment on above: Order Comment: Speci men Type: BLOOD SPECIMEN Ordering Facility: [facility] Address: [address] Performed By: #### 5 7021-8, 99909-7 #### [facility] CLIA [id number] [address] [place], [place] [address] [place] Jennifer 01-31-2023 DAVIS Telephone ([facility]) VLAD SIDDIQI ([id number]) 1960 M Date Time Provider Department 01/31/23 [...] twice daily as needed (pain). 5-325mg - midqcsdpgwq-xzyqzmpkw-k ilanter (TRELEGY ELLIPTA) 100-62.5-25 mcg inhalation powder [...] lunch, 30 units at supper. - Insulin Kent, Disposable, (PEN NEEDLES) 31 gauge x 1/4 ndle For insulin injection 3x daily. - Zelienople-3 Fatty Acids 500 mg cap Take 1,000 [...] Encounter Status:Closed by MARIE MISHRA on 02/02/23 [facility] HbA1c (Bld)on 01-31-2023 Average glucose Estimated from glycated hemoglobin (Bld) [Mass/Vol] 143 mg/dL Normal [facility] Comment on above: Order Comment: Soraida montoya Type: BLOOD SPECIMEN Ordering Facility: [facility] Address: [address] [id number] Result Comment: eAG: (Estimated average glucose) is a calculated value from HgbA1c and is site safety representative of the average blood glucose level in the last 2-3 month period. Performed By: #### 5 7021-8, 74161-4 #### [facility] CLIA [id number] [address] [place] [address] [place] HbA1c (Bld) [Mass fraction] 6.6 % High 4.3-6.0 [facility] Comment on above: Order Comment: Soraida montoya Type: BLOOD SPECIMEN Ordering Facility: [facility] Address: [address] [place] [address] Result Comment: [place] Diabetes Association guidelines indicate that patients with HgbA1c in the range 5.7-6.4% are at increased risk for development of diabetes, and intervention by lifestyle modification may be beneficial. HgbA1c greater or equal to 6.5% is considered diagnostic of diabetes. Performed By: #### 5 7021-8, 05917-7 #### [facility] CLIA [id number] [address] [place] [address] [place] NT-proBNP [facility] 01-31 Natriuretic peptide.B prohormone N-Terminal [Mass/Vol] <15 Normal <125 [facility] Comment on above: Order Comment: Soraida montoya Type: BLOOD SPECIMEN Ordering Facility: [facility] Address: [address] [phone] Result Comment: NT-p roBNP results of less [...] RANGE Performed By: #### 3 3762-6 #### [facility] CLIA [id number] [address] [place] [address] [place] STAPH AUREUS PCRon S. aureus and MRSA panel TANMAY+probe (Nose) Abnormal Negative [facility] Comment on above: Order Comment: Speci men Type: SWAB OF INTERNAL NOSEOrdering Facility: [facility] Address: [address] [address] Result Comment: Posi tive for Staphylococcus aureus by PCR. Negative for MRSA by PCR Performed By: #### S APCR ####[facility] [id number] [address] [place] TYPE AND SCREEN,30 DAYon ABO O [facility] Comment on above: Order Comment: Speci men Type: BLOOD SPECIMEN Ordering Facility: [facility] Address: [address] [place] [address] Performed By: #### T SCR30 #### [facility] CLIA [id number] [address] [place] [address] [place] HISTORICAL AB SCR STATUS Negative [facility] Comment on above: Order Comment: Speci men Type: BLOOD SPECIMEN Ordering Facility: [facility] Address: [address] [place] [address] Performed By: #### T SCR30 #### [facility] CLIA [id number] [address] [place] [address] [place] Rh Nom (Bld) Positive [facility] Comment on above: Order Comment: Speci men Type: BLOOD SPECIMEN Ordering Facility: [facility] Address: [address] [place] [address] Performed By: #### T SCR30 #### [facility] CLIA [id number] [address] [place] [address] [place] CNCOon 01-30-2023 CNCO Letter Text [facility] CNPLis 01-30[facility]2023 [facility] VLAD SIDDIQI ([id number]) 1960 M Date Time Provider Department 01/30/23 [...] for Visit: Returning Patient's Call [408] Cmt: [facility] hx call Prescriptions as of 01/30/2023 - insulin lispro (HUMALOG PEN SUBCUTANEOUS) Inject subcutaneously three times daily. 65 units with breakfast, 30 units with lunch, 45 units with supper - oxyCODONE-acetaminophen (PERCOCET) 5325 mg per tablet Take 1 tablet by mouth twice daily as needed. - koaejtpdipo-bwuuwfphw-x ilanter (TRELEGY ELLIPTA) 100-62.5-25 mcg inhalation powder [...] lunch, 30 units at supper. - Insulin Kent, Disposable, (PEN NEEDLES) 31 gauge x 1/4 ndle For insulin injection 3x daily. - Zelienople-3 Fatty Acids 500 mg cap Take 1,000 [...] Encounter Status:Closed by RADHA SHAFFER on 01/30/23 [facility] Absolute lymphocyte countOrd ered By: Dr. Navarro on 01-18-2023 Lymphocytes Auto (Unsp spec) [#/Vol] 1.32 10*3/uL 0.83-4.51 [facility] Basophil percentageOrdered B y: Dr. Navarro on 01-18-2023 Basophil percentage 0 SEEN /hpf 0-5 [facility] Basophil percentage 2.6 mg/dL 2.5-4.9 [facility] Basophils/100 WBC (Bld) 1.1 % 0-1 [facility] Bilirubin [Mass/Vol] 0.50 mg/dL 0.20-1.00 [facility] Comment on above: For patients on eltr ombopag therapy, use of Dimension [place] TBIL is not recommended. Chloride [Moles/Vol] 109 mmol/L 98-107 [facility] Cholesterol [Mass/Vol] 129 mg/dL <200 [facility] Comment on above: <200 mg/dL Desirable 200-240 mg/dL Borderline >240 mg/dL High Risk Eosinophils/100 WBC (Bld) 1.8 % 0-5 [facility] Glucose [Mass/Vol] 142 mg/dL 74-[address] [facility] Comment on above: Fasting Glucose resu lt greater than or equal to 126 mg/dL suggests DIABETES MELLITUS per A.D.A. criteria. Neutrophils (Bld) [#/Vol] 4.0 10*3/uL 2.0-7.7 [facility] Neutrophils/100 WBC (Bld) 65.2 % 47-70 [facility] Potassium [Moles/Vol] 3.6 mmol/L 3.5-5.1 [facility] Protein [Mass/Vol] 7.3 g/dL 6.4-8.[address] [facility] Sodium [Moles/Vol] 140 mmol/L 136-[address] [facility] Triglyceride [Mass/Vol] 160 mg/dL <199 [facility] Comment on above: The drugs N-Acetylcy steine and Metamizole may falsely depress this assay.Serum Triglycerides Reference Interval Normal <150 mg/dL Borderline high 150 - 199 mg/dL High 200 - 499 mg/dL Very High > or = 500 mg/dL WBC (Bld) [#/Vol] 6.1 10*3/uL 4.4-11.[address] [facility] Bilirubin Test strip Ql (U)O rdered By: Dr. Navarro on 01-18-2023 Bilirubin Ql (U) Negative Negative [facility] Blood erythrocytes count (nu mber/volume)Ordered By: Dr. Navarro on 01-18-2023 RBC (Bld) [#/Vol] 4.89 10*6/uL 4.6-6.2 [facility] Blood hemoglobin measurement (mass/volume)Ordered By: Dr. Navarro on 01-18-2023 Hemoglobin (Bld) [Mass/Vol] 15.1 g/dL 13.0-16.5 [facility] Blood lymphocytes/100 leukoc ytesOrdered By: Dr. Navarro on 01-18-2023 Lymphocytes/100 WBC (Bld) 21.6 % 19-41 [facility] Blood monocytes/100 leukocyt esOrdered By: Dr. Navarro on 01-18-2023 Monocytes/100 WBC (Bld) 10.3 % 0-10 [facility] Blood platelet mean volumeOr dered By: Dr. Navarro on 01-18-2023 Platelet mean volume (Bld) [Entitic vol] 8.9 fL 6.2-12.0 [facility] Determination of erythrocyte mean corpuscular volume (MCV)Ordered By: Dr. Navarro on 01-18-2023 MCV (RBC) [Entitic vol] 92.6 fL 80-94 [facility] Hematocrit Auto (Bld) [Volum e fraction]Ordered By: Dr. Navarro on 01-18-2023 Hematocrit (Bld) [Volume fraction] 45.3 % 40-54 [facility] Ketones Test strip Ql (U)Ord ered By: Dr. Navarro on 01-18-2023 Ketones Ql (U) Negative Negative [facility] Laboratory - Chemistry and C hemistry - challengeOrdered By: Dr. Navarro on 01-18-2023 ALP [Catalytic activity/Vol] 57 U/L 45-117 [facility] ALT [Catalytic activity/Vol] 51 U/L 16-61 [facility] CO2 [Moles/Vol] 25.0 mmol/L 21.0-32.0 [facility] Free T4 [Mass/Vol] 0.97 ng/dL 0.76-1.[address] [facility] Globulin (S) [Mass/Vol] 3.5 g/dL 2.2-4.2 [facility] Urea nitrogen/Creatinine [Mass ratio] 16.0 mg/mg 10-20 [facility] Laboratory - Hematology and Cell countsOrdered By: Dr. Navarro on 01-18-2023 Erythrocyte distribution width (RBC) [Entitic vol] 42.3 fL 35.1-43.9 [facility] Erythrocyte distribution width (RBC) [Ratio] 12.4 % 11.6-14.6 [facility] Immature granulocytes/100 WBC (Bld) 0.000 % 0.0-0.9 [facility] Comment on above: IG% - Immature Granu locytes (promyelocytes, myelocytes and metamyelocytes) > 1% indicates that a LEFT SHIFT is Present. MCH (RBC) [Entitic mass] 30.9 pg 27.0-32.0 [facility] Nucleated RBC/100 WBC (Bld) [Ratio] 0 % 0-5 [facility] MCHC Auto (RBC) [Mass/Vol]Or dered By: Dr. Navarro on 01-18-2023 MCHC (RBC) [Mass/Vol] 33.3 g/dL 32-36 [facility] Mucus LM Ql (Urine sed)Order ed By: Dr. Navarro on 01-18-2023 Mucus Ql (Urine sed) 0 SEEN /hpf [facility] Nitrite Test strip Ql (U)Ord ered By: Dr. Navarro on 01-18-2023 Nitrite Ql (U) Negative Negative [facility] No Panel InformationOrdered By: Dr. Navarro on 01-18-2023 Estimated GFR (MDRD) Amer 64 mL/min >60 [facility] Comment on above: GFR Calc Estimated GFR (MDRD) Non-Af Amer 53 mL/min >60 [facility] Comment on above: Non- GFR Calc Parathyroid Hormone (Intact) 28.1 pg/mL 18.4-80.1 [facility] Thyroglobulin Antibody < 1.0 IU/mL 0.0-0.9 [facility] Comment on above: Thyroglobulin Antibo dy measured by Ines CoulterMethodology Thyroglobulin Level 26.7 ng/mL 1.4-29.2 [facility] Comment on above: According to the [facility] [employer],the reference interval for Thyroglobulin (TG) should berelated to euthyroid patients and not for patients whounderwent thyroidectomy. TG reference intervals for thesepatients depend on the residual mass of the thyroid tissueleft after surgery. Establishing a post-operative baselineis recommended. The assay limit of quantitation is 0.1ng/mLThyroglobulin measured by Ines Leroy ImmunometricAss[employer] Thyroid Stimulating Hormone (TSH) 1.63 uIU/mL 0.358-3.74 [facility] Urine Microalbumin/Creatinine Ratio 115.8 mg/g CRE <30 [facility] Vitamin D 25-Hydroxy 73.8 ng/mL [facility] Comment on above: Vitamin D 25(OH) Sta tus Range Deficiency <20 ng/mL (50nmol/L) Insufficiency 20 - 30 ng/mL (50 - 75 nmol/L) Sufficiency 30 - 100 ng/mL (75 - 250 nmol/L) Toxicity >100 ng/mL (>250 nmol/L) Platelets bldOrdered By: Dr. Navarro on 01-18-2023 Platelets (Bld) [#/Vol] 201 10*3/uL 150-450 [facility] Protein Test strip Ql (U)Ord ered By: Dr. Navarro on 01-18-2023 Protein Ql (U) 30 mg/dl Negative [facility] Serum or plasma albumin melanie urement (mass/volume)Ordered By: Dr. Navarro on 01-18-2023 Albumin [Mass/Vol] 3.8 g/dL 3.2-5.[address] [facility] Serum or plasma albumin/glob ulin mass ratioOrdered By: Dr. Navarro on 01-18-2023 Albumin/Globulin [Mass ratio] 1.1 {ratio} 0.9-2.4 [facility] Serum or plasma calcium melanie urement (mass/volume)Ordered By: Dr. Navarro on 01-18-2023 Calcium [Mass/Vol] 9.2 mg/dL 8.5-10.[address] [facility] Serum or plasma cholesterol in HDL measurement (mass/volume)Ordered By: Dr. Navarro on 01-18-2023 Cholesterol in HDL [Mass/Vol] 47 mg/dL >40 [facility] Comment on above: The drugs N-Acetylcy steine and Metamizole may falsely depress this assay. Reference Range HDL <40 mg/dL Low HDL Cholesterol HDL >or= 60 mg/dL High HDL Cholesterol Serum or plasma cholesterol in VLDL measurement (mass/volume)Ordered By: Dr. Navarro on 01-18-2023 Cholesterol in VLDL [Mass/Vol] 32 mg/dL 5-40 [facility] Serum or plasma creatinine m easurement (mass/volume)Ordered By: Dr. Navarro on 01-18-2023 Creatinine [Mass/Vol] 1.44 mg/dL 0.70-1.30 [facility] Comment on above: The validity of the calculated GFR & GFRAA in patients over 70 years has not been determined. Clinical correlation is essential. Serum or plasma low density lipoprotein (LDL) cholesterol measurement (mass/volume)Ordered By: Dr. Navarro on 01-18-2023 Cholesterol in LDL [Mass/Vol] 50 mg/dL 0-130 [facility] Serum or plasma thyroperoxid ase antibody assay (units/volume)Ordered By: Dr. Navarro on 01-18-2023 TPO Ab Qn 22 [IU]/mL 0-34 [facility] Comment on above: Performed at: [place] [id number] Director: Santana Doran PhD, Phone: [phone] Serum or plasma urea nitroge n measurement (mass/volume)Ordered By: Dr. Navarro on 01-18-2023 Urea nitrogen [Mass/Vol] 23 mg/dL 7-18 [facility] Squamous epithelial cells de tection in urine sediment by light microscopyOrdered By: Dr. Navarro on 01-18-2023 Epithelial cells.squamous LM Ql (Urine sed) 0 SEEN /hpf 0-5 [facility] Thin prep Papanicolaou smear with manual screeningOrdered By: Dr. Navarro on 01-18-2023 Thin prep Papanicolaou smear with manual screening 32 U/L 15-37 [facility] Thin prep Papanicolaou smear with manual screening 6 5-15 [facility] Thin prep Papanicolaou smear with manual screening 176.0 mg/L NO RANGE EST. [facility] Urine blood detectionOrdered By: Dr. Navarro on 01-18-2023 RBC Ql (U) Negative Negative [facility] RBC Ql (U) 0 SEEN /hpf 0-5 [facility] Urine clarityOrdered By: Dr. Navarro on 01-18-2023 Clarity (U) Clear Clear [facility] Urine color determinationOrd ered By: Dr. Navarro on 01-18-2023 Color (U) Yellow Yellow [facility] Urine creatinine measurement (mass/volume)Ordered By: Dr. Navarro on 01-18-2023 Creatinine (U) [Mass/Vol] 152.00 mg/dL NO RANGE EST. [facility] Urine glucose detectionOrder ed By: Dr. Navarro on 01-18-2023 Glucose Ql (U) 250 mg/dl Normal [facility] Urine leukocyte esterase det ection by dipstickOrdered By: Dr. Navarro on 01-18-2023 Leukocyte esterase Test strip Ql (U) Negative Negative [facility] Urine pHOrdered By: Dr. Faye swan on 01-18-2023 pH (U) 5.0 [pH] 5.0 - 8.0 [facility] Urine protein measurement (m ass/volume)Ordered By: Dr. Navarro on 01-18-2023 Protein (U) [Mass/Vol] 39.6 mg/dL 0.0-11.8 [facility] Urine protein/creatinine mas s ratioOrdered By: Dr. Navarro on 01-18-2023 Protein/Creatinine (U) [Mass ratio] 261 mg/g CRE 0-200 [facility] Urine sediment bacteria coun t by microscopy (number/high power field)Ordered By: Dr. Navarro on 01-18-2023 Bacteria LM.HPF (Urine sed) [#/Area] 0 /[HPF] None Seen [facility] Urine specific gravity measu rementOrdered By: Dr. Navarro on 01-18-2023 Specific gravity (U) [Rel density] 1.025 1.002-1.030 [facility] Urobilinogen Auto test strip Ql (U)Ordered By: Dr. Navarro on 01-18-2023 Urobilinogen Ql (U) Normal mg/dl Normal [facility] Whole blood hemoglobin A1c/t otal hemoglobin ratio (mass fraction)Ordered By: Dr. Navarro on 01-18-2023 HbA1c (Bld) [Mass fraction] 6.9 % 3.8-5.6 [facility] Comment on above: Normal < 5.7 % Predi abetic 5.7 - 6.4 % Diabetic >or= 6.5 % Please note range changes. [facility]-2023 Colonoscopy [facility] Gastrointestinal Endoscopy Patient Name: Vlad Siddiqi Procedure [...] physician PRN. Procedure Code(s): --- Professional --- 39587, Colonoscopy, flexible; diagnostic, including collection of specimen(s) by brushing or washing, when performed (separate procedure) G0500, Moderate sedation services provided by the same physician or other qualified health healthcare consultant performing a gastrointestinal endoscopic service that sedation supports, requiring the presence of an independent trained observer to assist in the monitoring of the patient's level of consciousness and physiological status; initial 15 minutes of intra-service time; patient age 5 years or older (additional time may be reported with 27845, as appropriate) Diagnosis Code(s): --- Professional --- Z12.11, Encounter for screening for malignant neoplasm of colon Z80.0, Family history of malignant neoplasm of digestive organs K57.30, Diverticulosis of large intestine without perforation or abscess without bleeding CPT copyright 2020 [employer]. All rights reserved. The codes documented in this report are preliminary and upon assistant principal review may be revised to meet current compliance requirements. Attending Participation: I personally performed the entire procedure. Scope In: 8:11:07 AM Scope Out: 8:21:57 AM MD Juan Luna MD 01/15/2023 8:25:22 AM This report has been signed electronically by Jaun Guallpa MD Number of Addenda: 0 Note Initiated On: 01/15/2023 7:59 AM Estimated Blood Loss: Estimated blood loss: none. Normal [facility] HISTORY PHYSICALon 3 HISTORY PHYSICAL HNO ID: [id number] Author: Juan Guallpa MD Service: General Surgery [...] DX W/COLLJ SPEC WHEN PFRMD 09/13/06 repeat [id number] COLONOSCOPY FLX DX W/COLLJ SPEC WHEN PFRMD [...] at lunch, 30 units at supper. Insulin Kent, Disposable, (PEN NEEDLES) 31 gauge x 1/4 ndle For insulin injection 3x daily. Zelienople-3 Fatty Acids 500 mg cap Take 1,000 [...] visit. ALLERGIES: Adhesive Tape (Rosins), Byetta [Exenatide], Idabel, Grass Pollen, Penicillins, Sulfa (Sulfonamide Antibiotics), Thiazides, [...] Diabetes Pater (more content not included)... Normal [facility] NURSING PROGon 01-15-2023 NURSING PROG HNO ID: [id number] Author: Lillian Olivarez RN Service: ? Author [...] able, resting comfortably on left side. Normal [facility] .Auto Diffon 01-12-2023 Basophil, Absolute 0.1 10 3/mcL Normal 0.0-0.2 [facility] ([place]) Comment on above: Performed By: #### A 1C, GFR, ANEU, ADIFF, BMP, CBC #### [address] [address] Basophils/100 WBC (Bld) 1.2 % Normal 0.0-2.5 [facility] ([place]) Comment on above: Performed By: #### A 1C, GFR, ANEU, ADIFF, BMP, CBC #### [address] [address] Eosinophil, Absolute 0.2 10 3/mcL Normal 0.0-0.4 [facility] ([place]) Comment on above: Performed By: #### A 1C, GFR, ANEU, ADIFF, BMP, CBC #### [address] [address] Eosinophils/100 WBC (Bld) 3.9 % Normal 0.0-7.0 [facility] ([place]) Comment on above: Performed By: #### A 1C, GFR, ANEU, ADIFF, BMP, CBC #### [address] [address] Lymphocyte, Absolute 1.6 10 3/mcL Normal 0.8-3.9 [facility] ([place] Comment on above: Performed By: #### A 1C, GFR, ANEU, ADIFF, BMP, CBC #### [address] [address] Lymphocytes/100 WBC (Bld) 26.5 % Normal 10.0-50.0 [facility] ([place] Comment on above: Performed By: #### A 1C, GFR, ANEU, ADIFF, BMP, CBC #### [address] [address] Monocyte, Absolute 0.4 10 3/mcL Normal 0.2-1.0 [facility] ([place]) Comment on above: Performed By: #### A 1C, GFR, ANEU, ADIFF, BMP, CBC #### [address] [address] Monocytes/100 WBC (Bld) 7.2 % Normal 1.7-13.0 [facility] ([place]) Comment on above: Performed By: #### A 1C, GFR, ANEU, ADIFF, BMP, CBC #### [address] [address] Neutrophils/100 WBC (Bld) 61.2 % Normal 37.0-80.0 [facility] ([place] Comment on above: Performed By: #### A 1C, GFR, ANEU, ADIFF, BMP, CBC #### [address] [address] .GFRon 01-12-2023 GFR Non- 46 ml/min/1.73sqm Normal [facility] ([place] Comment on above: Result Comment: GFR Population [...] 1C, GFR, ANEU, ADIFF, BMP, CBC #### [address] [address] GFR 56 ml/min/1.73sqm Normal [facility] ([place] Comment on above: Result Comment: GFR Population [...] 1C, GFR, ANEU, ADIFF, BMP, CBC #### [address] [address] .NEUABSon 01-12-2023 Neutrophil, Absolute 3.7 10 3/mcL Normal 2.9-6.2 [facility] ([place]) Comment on above: Performed By: #### A 1C, GFR, ANEU, ADIFF, BMP, CBC #### [address] [address] A1Con 01-12-2023 HbA1c (Bld) [Mass fraction] 7.5 % High 4.3-6.4 [facility] ([place] Comment on above: Performed By: #### A 1C, GFR, ANEU, ADIFF, BMP, CBC #### [address] [address] BMPon 01-12-2023 BUN/Creatinine Ratio 13 ratio Normal 7-27 [facility] ([place]) Comment on above: Performed By: #### A 1C, GFR, ANEU, ADIFF, BMP, CBC #### [address] [address] Calcium [Mass/Vol] 9.3 mg/dL Normal 8.4-10.2 [facility] ([place]) Comment on above: Performed By: #### A 1C, GFR, ANEU, ADIFF, BMP, CBC #### [place] [address] Chloride [Moles/Vol] 106 mmol/L Normal 98-107 [facility] ([place]) Comment on above: Performed By: #### A 1C, GFR, ANEU, ADIFF, BMP, CBC #### [place] [address] CO2 [Moles/Vol] 29 mmol/L Normal 23-31 [facility] ([place] Comment on above: Performed By: #### A 1C, GFR, ANEU, ADIFF, BMP, CBC #### [address] [address] Creatinine [Mass/Vol] 1.54 mg/dL High 0.70-1.30 [facility] ([place]) Comment on above: Performed By: #### A 1C, GFR, ANEU, ADIFF, BMP, CBC #### [address] [address] Electrolyte Balance 9.0 mEq/L Normal 4.0-15.0 [facility] ([place]) Comment on above: Performed By: #### A 1C, GFR, ANEU, ADIFF, BMP, CBC #### [place] [address] Glucose [Mass/Vol] 102 mg/dL Normal 80-115 [facility] ([place]) Comment on above: Performed By: #### A 1C, GFR, ANEU, ADIFF, BMP, CBC #### [address] [address] Potassium [Moles/Vol] 3.9 mmol/L Normal 3.5-5.1 [facility] ([place]) Comment on above: Performed By: #### A 1C, GFR, ANEU, ADIFF, BMP, CBC #### [address] [address] Sodium [Moles/Vol] 144 mmol/L Normal 136-145 [facility] ([place]) Comment on above: Performed By: #### A 1C, GFR, ANEU, ADIFF, BMP, CBC #### [place] [address] Urea nitrogen [Mass/Vol] 20 mg/dL High 7-18 [facility] ([place] Comment on above: Performed By: #### A 1C, GFR, ANEU, ADIFF, BMP, CBC #### [place] [address] CBCon 01-12-2023 Erythrocyte distribution width (RBC) [Ratio] 13.3 % Normal 11.5-14.5 [facility] ([place] Comment on above: Performed By: #### A 1C, GFR, ANEU, ADIFF, BMP, CBC #### [address] [address] Hematocrit (Bld) [Volume fraction] 42.7 % Normal 42.0-52.0 [facility] ([place] Comment on above: Performed By: #### A 1C, GFR, ANEU, ADIFF, BMP, CBC #### [address] [address] Hgb 14.5 G/dL Normal 14.0-18.0 [facility] ([place] Comment on above: Performed By: #### A 1C, GFR, ANEU, ADIFF, BMP, CBC #### [address] [address] MCH (RBC) [Entitic mass] 30.9 pg Normal 27.0-31.2 [facility] ([place] Comment on above: Performed By: #### A 1C, GFR, ANEU, ADIFF, BMP, CBC #### [address] [address] MCHC 33.9 G/dL Normal 31.8-35.4 [facility] ([place] Comment on above: Performed By: #### A 1C, GFR, ANEU, ADIFF, BMP, CBC #### [address] [address] MCV (RBC) [Entitic vol] 91.1 fL Normal 80.0-94.0 [facility] ([place] Comment on above: Performed By: #### A 1C, GFR, ANEU, ADIFF, BMP, CBC #### [place] [id number] Platelet 204 10 3/mcL Normal 130-400 [facility] ([place] Comment on above: Performed By: #### A 1C, GFR, ANEU, ADIFF, BMP, CBC #### [address] [address] Platelet mean volume (Bld) [Entitic vol] 6.7 fL Low 7.4-10.4 [facility] ([place] Comment on above: Performed By: #### A 1C, GFR, ANEU, ADIFF, BMP, CBC #### [address] [address] RBC 4.69 10 6/mcL Normal 4.04-6.13 [facility] ([place] Comment on above: Performed By: #### A 1C, GFR, ANEU, ADIFF, BMP, CBC #### [address] [address] WBC 6.1 10 3/mcL Normal 4.6-10.8 [facility] ([place] Comment on above: Performed By: #### A 1C, GFR, ANEU, ADIFF, BMP, CBC #### [address] [address] [address] SPINE LUMBAR W/O CONTRAST on 01-11-2023 [...] bulge and ligamentum flavum hypertrophy contributes to [id number] spinal canal stenosis. Severe bilateral foraminal stenosis. [...] 01/11/2023 10:58:48 AM Ordering Provider: NIK Martinez [facility] ([place] Laboratory - Hematology and Cell countson 01-02-2023 HbA1c (Bld) [Mass fraction] 7.7 % 4.2-6.3 [facility] 12-28-2022 [facility] Telephone (KWESIS) VLAD SIDDIQI ([id number]) 1960 M Date Time Provider Department 12/28/22 JUAN GUALLPA During your visit today, we recorded the following information about you: Mychal Allen 12/28/2022 9:04 AM Signed Patient called in to inform Dr. Guallpa that patient is to have anesthesia for his shot for his back on 01/17/2023 and wasn't sure if this would interfere with colonoscopy at [facility] on 01/15/2023 Please advise Thank you Mychal Allen Supervisor Juan Guallpa III, MD 01/02/2023 3:30 PM Signed There will be no interference Mychal Allen 01/03/2023 8:24 AM Signed Patient notified Mychal Allen 01/08/2023 11:38 AM Addendum Patient called in stating his diabetic doctor has an issue with no fiber - more protein diet leading up to colonoscopy due to sugar levels. Patient asking what to do Please advise Mychal Allen Supervisor Mychal Allen 01/16/2023 10:53 AM Signed Patient notified our instructions state no fiber diet to decrease the amount of stool being made to allow a full clean out for procedure. Failure to be cleaned out could result in not being able to complete procedure. Patent aware and verbalized understanding. Would like to proceed with procedure. Mychal Allen Supervisor Allergies As of Date: 12/28/2022 Noted Allergy [...] lunch, 30 units at supper. - Insulin Kent, Disposable, (PEN NEEDLES) 31 gauge x 1/4 ndle For insulin injection 3x daily. - Zelienople-3 Fatty Acids 500 mg cap Take 1,000 [...] Encounter Status:Closed by MYCHAL ALLEN [facility]16[facility]23 [facility] Telephone (ASWSTR) VLAD SIDDIQI ([id number]) 1960 M Date Time Provider Department 11/24/22 [...] lunch, 30 units at supper. - Insulin Kent, Disposable, (PEN NEEDLES) 31 gauge x 1/4 ndle For insulin injection 3x daily. - Zelienople-3 Fatty Acids 500 mg cap Take 1,000 mg by mouth twice daily. - lisinopril (ZESTRIL, PRINIVIL) 20 mg tablet Take 10 mg by mouth once daily. - atorvastatin (LIPITOR) 20 mg tablet Take 20 mg by mouth once daily. - LOVAZA 1 gram capsule Take 2 capsules by mouth twice daily. - blood sugar diagnostic [facility] test strip before meals and at bedtime. [...] Encounter Status:Closed by MYCHAL ALLEN on 12/28/22 Normal [facility] MISCon 11-15-2022 [facility] Send Out See Comments Normal [facility] ([place] Comment on above: Result Comment: Comp lete reference lab report scanned to EMR. Performed By: #### A DIFF, ANEU, CBC #### [address] [address] .Auto Diffon 11-10-2022 Basophil, Absolute 0.0 10 3/mcL Normal 0.0-0.2 [facility] ([place]) Comment on above: Performed By: #### A DIFF, ANEU, CBC #### [address] [address] Basophils/100 WBC (Bld) 0.5 % Normal 0.0-2.5 [facility] ([place]) Comment on above: Performed By: #### A DIFF, ANEU, CBC #### [address] [address] Eosinophil, Absolute 0.1 10 3/mcL Normal 0.0-0.4 [facility] ([place]) Comment on above: Performed By: #### A DIFF, ANEU, CBC #### [address] [address] Eosinophils/100 WBC (Bld) 1.1 % Normal 0.0-7.0 [facility] ([place] Comment on above: Performed By: #### A DIFF, ANEU, CBC #### [address] [address] Lymphocyte, Absolute 1.7 10 3/mcL Normal 0.8-3.9 [facility] ([place]) Comment on above: Performed By: #### A DIFF, ANEU, CBC #### [address] [address] Lymphocytes/100 WBC (Bld) 19.1 % Normal 10.0-50.0 [facility] ([place] Comment on above: Performed By: #### A DIFF, ANEU, CBC #### [address] [address] Monocyte, Absolute 0.8 10 3/mcL Normal 0.2-1.0 [facility] ([place]) Comment on above: Performed By: #### A DIFF, ANEU, CBC #### [address] [address] Monocytes/100 WBC (Bld) 8.5 % Normal 1.7-13.0 [facility] ([place]) Comment on above: Performed By: #### A DIFF, ANEU, CBC #### [address] [address] Neutrophils/100 WBC (Bld) 70.8 % Normal 37.0-80.0 [facility] ([place] Comment on above: Performed By: #### A DIFF, ANEU, CBC #### [address] [address] .NEUABSon 11-10-2022 Neutrophil, Absolute 6.3 10 3/mcL High 2.9-6.2 [facility] ([place]) Comment on above: Performed By: #### A DIFF ANEU, CBC #### [address] [address] CBCon 11-10-2022 Erythrocyte distribution width (RBC) [Ratio] 13.1 % Normal 11.5-14.5 [facility] ([place] Comment on above: Performed By: #### A DIFF ANEU, CBC #### [address] [address] Hematocrit (Bld) [Volume fraction] 43.7 % Normal 42.0-52.0 [facility] ([place] Comment on above: Performed By: #### A DIFF ANEU, CBC #### [address] [address] Hgb 14.8 G/dL Normal 14.0-18.0 [facility] ([place] Comment on above: Performed By: #### A DIFF ANEU, CBC #### [address] [address] MCH (RBC) [Entitic mass] 31.1 pg Normal 27.0-31.2 [facility] ([place] Comment on above: Performed By: #### A DIFF ANEU, CBC #### [address] [address] MCHC 33.9 G/dL Normal 31.8-35.4 [facility] ([place] Comment on above: Performed By: #### A DIFF, ANEU, CBC #### [address] [address] MCV (RBC) [Entitic vol] 91.5 fL Normal 80.0-94.0 [facility] ([place]) Comment on above: Performed By: #### A DIFF, ANEU, CBC #### [address] [address] Platelet 163 10 3/mcL Normal 130-400 [facility] ([place] Comment on above: Performed By: #### A DIFF, ANEU, CBC #### [address] [address] Platelet mean volume (Bld) [Entitic vol] 7.8 fL Normal 7.4-10.4 [facility] ([place] Comment on above: Performed By: #### A DIFF, ANEU, CBC #### [address] [address] RBC 4.77 10 6/mcL Normal 4.04-6.13 [facility] ([place] Comment on above: Performed By: #### A DIFF, ANEU, CBC #### [address] [address] WBC 9.0 10 3/mcL Normal 4.6-10.8 [facility] ([place] Comment on above: Performed By: #### A DIFF, ANEU, CBC #### [address] [address] .GFRon 11-09-2022 GFR Non- 47 ml/min/1.73sqm Normal [facility] ([place] Comment on above: Result Comment: GFR Population [...] By: #### A DIFF, ANEU, CBC #### [address] [address] GFR 57 ml/min/1.73sqm Normal [facility] ([place] Comment on above: Result Comment: GFR Population [...] mL/min/1.73 square meters Performed By: #### A DIFF ANEU, CBC #### [address] [address] BMPon 11-09-2022 BUN/Creatinine Ratio 19 ratio Normal 7-27 [facility] ([place]) Comment on above: Performed By: #### A DIFF ANEU, CBC #### [address] [address] Calcium [Mass/Vol] 8.9 mg/dL Normal 8.4-10.2 [facility] ([place]) Comment on above: Performed By: #### A DIFF ANEU, CBC #### [address] [address] Chloride [Moles/Vol] 107 mmol/L Normal 98-107 [facility] ([place]) Comment on above: Performed By: #### A DIFF ANEU, CBC #### [address] [address] CO2 [Moles/Vol] 26 mmol/L Normal 23-31 [facility] ([place]) Comment on above: Performed By: #### A DIFF ANEU, CBC #### [address] [address] Creatinine [Mass/Vol] 1.50 mg/dL High 0.70-1.30 [facility] ([place]) Comment on above: Performed By: #### A DIFF ANEU, CBC #### [address] [address] Electrolyte Balance 10.0 mEq/L Normal 4.0-15.0 [facility] ([place]) Comment on above: Performed By: #### A DIFF ANEU, CBC #### [address] [address] Glucose [Mass/Vol] 176 mg/dL High 80-115 [facility] ([place]) Comment on above: Performed By: #### A DIFF, ANEU, CBC #### [address] [place], [place] [address] Potassium [Moles/Vol] 4.4 mmol/L Normal 3.5-5.1 [facility] ([place]) Comment on above: Performed By: #### A DIFF, ANEU, CBC #### [address] [place], [place] [address] Sodium [Moles/Vol] 143 mmol/L Normal 136-145 [facility] ([place]) Comment on above: Performed By: #### A DIFF, ANEU, CBC #### [address] [place], [place] [address] Urea nitrogen [Mass/Vol] 28 mg/dL High 7-18 [facility] ([place]) Comment on above: Performed By: #### A DIFF, ANEU, CBC #### [address] [address] LABORATORYOrdered By: SYSTEM SYSTEM on 11-09-2022 Calcium [...] CNOV Office Visit (GENSWS ) VLAD SIDDIQI ([id number]) 1960 M Date Time Provider Department 10/17/22 3:30 PM SANDY KESSLER During your visit today, we recorded the [...] DX W/COLLJ SPEC WHEN PFRMD 09/13/06 repeat [id number] COLONOSCOPY FLX DX W/COLLJ SPEC WHEN PFRMD 06-17-12 Colonoscopy q5y COLONOSCOPY FLX DX W/COLLJ SPEC WHEN PFRMD 11/04/2019 adenomatous polyps, repeat in 3 years PAST SURGICAL HISTORY OF wisdom teeth Current Outpatient Medicatio (more content not included)... Normal [facility] Laboratory - Hematology and Cell countson 10-09-2022 HbA1c (Bld) [Mass fraction] 7.9 % [facility] Absolute lymphocyte counton 07-24-2022 Lymphocytes Auto (Unsp spec) [#/Vol] 1.63 10*3/uL 0.83-4.51 [facility] Work Phone: Basophil percentageon 2021 Basophils/100 WBC (Bld) 0.6 % 0-1 [facility] Work Phone: Bilirubin [Mass/Vol] 0.40 mg/dL 0.20-1.00 [facility] Work Phone: Comment on above: For patients on eltr ombopag therapy, use of Dimension [place] TBIL is not recommended. Chloride [Moles/Vol] 107 mmol/L 98-107 [facility] Work Phone: Eosinophils/100 WBC (Bld) 2.8 % 0-5 [facility] Work Phone: Glucose [Mass/Vol] 120 mg/dL 74-[address] [facility] Work Phone: Comment on above: Fasting Glucose resu lt from 100 to 125 mg/dL suggests IMPAIRED HOMEOSTASIS per A.D.A. criteria. Neutrophils (Bld) [#/Vol] 5.2 10*3/uL 2.0-7.7 [facility] Work Phone: Neutrophils/100 WBC (Bld) 66.4 % 47-70 [facility] Work Phone: Potassium [Moles/Vol] 3.8 mmol/L 3.5-5.1 [facility] Work Phone: Protein [Mass/Vol] 7.1 g/dL 6.4-8.[address] [facility] Work Phone: Sodium [Moles/Vol] 141 mmol/L 136-[address] [facility] Work Phone: WBC (Bld) [#/Vol] 7.8 10*3/uL 4.4-11.[address] [facility] Work Phone: Blood erythrocytes count (nu mber/volume)on 07-24-2022 RBC (Bld) [#/Vol] 4.54 10*6/uL 4.6-6.2 [facility] Work Phone: Blood hemoglobin measurement (mass/volume)on 07-24-2022 Hemoglobin (Bld) [Mass/Vol] 14.3 g/dL 13.0-16.5 [facility] Work Phone: Blood lymphocytes/100 leukoc yteson 07-24-2022 Lymphocytes/100 WBC (Bld) 21.0 % 19-41 [facility] Work Phone: Blood monocytes/100 leukocyt eson 07-24-2022 Monocytes/100 WBC (Bld) 8.9 % 0-10 [facility] Work Phone: Blood platelet mean volumeon 07-24-2022 Platelet mean volume (Bld) [Entitic vol] 8.5 fL 6.2-12.0 [facility] Work Phone: Determination of erythrocyte mean corpuscular volume (MCV)on 07-24-2022 MCV (RBC) [Entitic vol] 95.6 fL 80-94 [facility] Work Phone: [phone] Hematocrit Auto (Bld) [Volum e fraction]on 07-24-2022 Hematocrit (Bld) [Volume fraction] 43.4 % 40-54 [facility] Work Phone: [phone] Laboratory - Chemistry and C hemistry - challengeon 07-24-2022 ALP [Catalytic activity/Vol] 57 U/L 45-117 [facility] Work Phone: [phone] ALT [Catalytic activity/Vol] 43 U/L 16-61 [facility] Work Phone: [phone] CO2 [Moles/Vol] 28.0 mmol/L 21.0-32.0 [facility] Work Phone: [phone] Globulin (S) [Mass/Vol] 3.8 g/dL 2.2-4.2 [facility] Work Phone: [phone] Urea nitrogen/Creatinine [Mass ratio] 17.8 mg/mg 10-20 [facility] Work Phone: [phone] Laboratory - Hematology and Cell countson 07-24-2022 Erythrocyte distribution width (RBC) [Entitic vol] 41.3 fL 35.1-43.9 [facility] Work Phone: [phone] Erythrocyte distribution width (RBC) [Ratio] 11.8 % 11.6-14.6 [facility] Work Phone: [phone] Immature granulocytes/100 WBC (Bld) 0.300 % 0.0-0.9 [facility] Work Phone: [phone] Comment on above: IG% - Immature Granu locytes (promyelocytes, myelocytes and metamyelocytes) > 1% indicates that a LEFT SHIFT is Present. MCH (RBC) [Entitic mass] 31.5 pg 27.0-32.0 [facility] Work Phone: [phone] Nucleated RBC/100 WBC (Bld) [Ratio] 0 % 0-5 [facility] Work Phone: [phone] MCHC Auto (RBC) [Mass/Vol]on 07-24-2022 MCHC (RBC) [Mass/Vol] 32.9 g/dL 32-36 [facility] Work Phone: No Panel Informationon 07-24 Estimated GFR (MDRD) Amer 73 mL/min >60 [facility] Work Phone: Comment on above: GFR Calc Estimated GFR (MDRD) Non-Af Amer 60 mL/min >60 [facility] Work Phone: Comment on above: Non- GFR Calc Platelets bldon 07-24-2022 Platelets (Bld) [#/Vol] 187 10*3/uL 150-450 [facility] Work Phone: Serum or plasma albumin melanie urement (mass/volume)on 07-24-2022 Albumin [Mass/Vol] 3.3 g/dL 3.2-5.[address] [facility] Work Phone: Serum or plasma albumin/glob ulin mass ratioon 07-24-2022 Albumin/Globulin [Mass ratio] 0.9 {ratio} 0.9-2.4 [facility] Work Phone: Serum or plasma calcium melanie urement (mass/volume)on 07-24-2022 Calcium [Mass/Vol] 9.0 mg/dL 8.5-10.[address] [facility] Work Phone: Serum or plasma creatinine m easurement (mass/volume)on 07-24-2022 Creatinine [Mass/Vol] 1.29 mg/dL 0.70-1.30 [facility] Work Phone: Comment on above: The validity of the calculated GFR & GFRAA in patients over 70 years has not been determined. Clinical correlation is essential. Serum or plasma urea nitroge n measurement (mass/volume)on 07-24-2022 Urea nitrogen [Mass/Vol] 23 mg/dL 7-18 [facility] Work Phone: Thin prep Papanicolaou smear with manual screeningon 07-24-2022 Thin prep Papanicolaou smear with manual screening 17 U/L 15-37 [facility] Work Phone: Thin prep Papanicolaou smear with manual screening 6 5-15 [facility] Work Phone: Laboratory - Hematology and Cell countson 05-09-2022 HbA1c (Bld) [Mass fraction] 7.9 % [facility] Work Phone: MRI SPINE LUMBAR W/O CONTRAS [...] 02/14/2022 2:51:41 PM Ordering Provider: EDIE CHRIS [facility] ([place]) Basophil percentageon 2021 Bilirubin [Mass/Vol] 0.40 mg/dL 0.20-1.00 [facility] Work Phone: Comment on above: For patients on eltr ombopag therapy, use of Dimension [place] TBIL is not recommended. Chloride [Moles/Vol] 107 mmol/L 98-107 [facility] Work Phone: Cholesterol [Mass/Vol] 123 mg/dL <200 [facility] Work Phone: Comment on above: <200 mg/dL Desirable 200-240 mg/dL Borderline >240 mg/dL High Risk Glucose [Mass/Vol] 230 mg/dL 74-106 [facility] Work Phone: Comment on above: Glucose result great er than or equal to 200 mg/dLsuggests DIABETES MELLITUS per A.D.A. criteria. Potassium [Moles/Vol] 4.0 mmol/L 3.5-5.1 [facility] Work Phone: [phone] Protein [Mass/Vol] 7.0 g/dL 6.4-8.[address] [facility] Work Phone: [phone] Sodium [Moles/Vol] 139 mmol/L 136-[address] [facility] Work Phone: [phone] Triglyceride [Mass/Vol] 117 mg/dL [facility] Work Phone: [phone] Comment on above: The drugs N-Acetylcy steine and Metamizole may falsely depress this assay.Serum Triglycerides Reference Interval Normal <150 mg/dL Borderline high 150 - 199 mg/dL High 200 - 499 mg/dL Very High > or = 500 mg/dL Laboratory - Chemistry and C hemistry - challengeon 01-17-2022 ALP [Catalytic activity/Vol] 71 U/L 45-117 [facility] Work Phone: [phone] ALT [Catalytic activity/Vol] 42 U/L 16-61 [facility] Work Phone: [phone] CO2 [Moles/Vol] 25.0 mmol/L 21.0-32.0 [facility] Work Phone: [phone] Globulin (S) [Mass/Vol] 3.5 g/dL 2.2-4.2 [facility] Work Phone: [phone] Urea nitrogen/Creatinine [Mass ratio] 18.3 mg/mg 10-20 [facility] Work Phone: [phone] Cobalamin (Vitamin B12) [Mass/Vol] 550 pg/mL 211-911 [facility] Work Phone: [phone] Laboratory - Hematology and Cell countson 01-17-2022 HbA1c (Bld) [Mass fraction] 8.0 % [facility] Work Phone: [phone] No Panel Informationon 01-17 Urine Microalbumin/Creatinine Ratio 70.0 mg/g CRE <30 [facility] Work Phone: Estimated GFR (MDRD) Amer 71 mL/min >60 [facility] Work Phone: Comment on above: GFR Calc Estimated GFR (MDRD) Non-Af Amer 59 mL/min >60 [facility] Work Phone: Comment on above: Non- GFR Calc Thyroid Stimulating Hormone (TSH) 1.53 uIU/mL 0.358-3.74 [facility] Work Phone: Vitamin D 25-Hydroxy 57.7 ng/mL [facility] Work Phone: Comment on above: Vitamin D 25(OH) Sta tus Range Deficiency <20 ng/mL (50nmol/L) Insufficiency 20 - 30 ng/mL (50 - 75 nmol/L) Sufficiency 30 - 100 ng/mL (75 - 250 nmol/L) Toxicity >100 ng/mL (>250 nmol/L) Serum or plasma albumin melanie urement (mass/volume)on 01-17-2022 Albumin [Mass/Vol] 3.5 g/dL 3.2-5.[address] [facility] Work Phone: [phone] Serum or plasma albumin/glob ulin mass ratioon 01-17-2022 Albumin/Globulin [Mass ratio] 1.0 {ratio} 0.9-2.4 [facility] Work Phone: Serum or plasma calcium melanie urement (mass/volume)on 01-17-2022 Calcium [Mass/Vol] 8.9 mg/dL 8.5-10.[address] [facility] Work Phone: [phone] Serum or plasma cholesterol in HDL measurement (mass/volume)on 01-17-2022 Cholesterol in HDL [Mass/Vol] 50 mg/dL [facility] Work Phone: Comment on above: The drugs N-Acetylcy steine and Metamizole may falsely depress this assay. Reference Range HDL <40 mg/dL Low HDL Cholesterol HDL >or= 60 mg/dL High HDL Cholesterol Serum or plasma cholesterol in VLDL measurement (mass/volume)on 01-17-2022 Cholesterol in VLDL [Mass/Vol] 23 mg/dL 5-40 [facility] Work Phone: Serum or plasma creatinine m easurement (mass/volume)on 01-17-2022 Creatinine [Mass/Vol] 1.31 mg/dL 0.70-1.30 [facility] Work Phone: Comment on above: The validity of the calculated GFR & GFRAA in patients over 70 years has not been determined. Clinical correlation is essential. Serum or plasma low density lipoprotein (LDL) cholesterol measurement (mass/volume)on 01-17-2022 Cholesterol in LDL [Mass/Vol] 50 mg/dL 0-130 [facility] Work Phone: Serum or plasma urea nitroge n measurement (mass/volume)on 01-17-2022 Urea nitrogen [Mass/Vol] 24 mg/dL 7-18 [facility] Work Phone: Thin prep Papanicolaou smear with manual screeningon 01-17-2022 Thin prep Papanicolaou smear with manual screening 53.5 mg/L NO RANGE EST. [facility] Work Phone: Thin prep Papanicolaou smear with manual screening 22 U/L 15-37 [facility] Work Phone: Thin prep Papanicolaou smear with manual screening 7 5-15 [facility] Work Phone: Urine creatinine measurement (mass/volume)on 01-17-2022 Creatinine (U) [Mass/Vol] 76.40 mg/dL NO RANGE EST. [facility] Work Phone: Vital Signs Date Time Vital Sign Value Performing Clinician Faci lity 01-22-2025 15:28-0400 Body height 170.[address] Kacey Navarro MD Work Phone: [facility] 01-22-2025 15:28-0400 Body mass index (BMI) [Ratio] 43.7 kg/m2 Dr. Kacey Navarro MD Work Phone: [facility] 01-22-2025 15:28-0400 Body weight 126.[address] Kacey Navarro MD Work Phone: [facility] 01-22-2025 15:28-0400 Diastolic blood pressure 75 mm[Hg] Dr. Kacey Navarro MD Work Phone: [facility] 01-22-2025 15:28-0400 Heart rate 85 /min Dr. Kacey Navarro MD Work Phone: [phone])504-918332 [place] [address] 01-22-2025 15:28-0400 SaO2% (BldA) [Mass fraction] 93 % Dr. Kacey Navarro MD Work Phone: [phone])[phone] [place] [address] 01-22-2025 15:28-0400 Systolic blood pressure 120 mm[Hg] Dr. Kacey Navarro MD Work Phone: 7(881)439-222195 [place] [address] 12-25-2024 21:14-0400 Body temperature 97.4 [degF] Dr. Kacey Navarro MD Work Phone: 9(058)943-380695 [place] [address] 12-25-2024 21:14-0400 Diastolic blood pressure 80 mm[Hg] Dr. Kacey Navarro MD Work Phone: 1(741)325-302832 [place] [address] 12-25-2024 21:14-0400 Heart rate 75 /min Dr. Kacey Navarro MD Work Phone: 9(554)181-274795 [place] [address] 12-25-2024 21:14-0400 Inhaled oxygen flow rate 8 L/min Dr. Kacey Navarro MD Work Phone: 7(179)439-293032 [place] [address] 12-25-2024 21:14-0400 Respiratory rate 14 /min Dr. Kacey Navarro MD Work Phone: 8(045)210-729132 [place] [address] 12-25-2024 21:14-0400 SaO2% (BldA) [Mass fraction] 99 % Dr. Kacey Navarro MD Work Phone: 6(352)238-429132 [place] [address] 12-25-2024 21:14-0400 Systolic blood pressure 138 mm[Hg] Dr. Kacey Navarro MD Work Phone: 4(901)848-444232 [place] [address] 12-25-2024 14:16-0400 Body temperature 97.2 [degF] Dr. Kacey Navarro MD Work Phone: [facility] 12-25-2024 14:16-0400 Diastolic blood pressure 75 mm[Hg] Dr. Kacey Navarro MD Work Phone: 8(047)256-395832 [place] [address] 12-25-2024 14:16-0400 Heart rate 85 /min Dr. Kacey Navarro MD Work Phone: 9(939)258-331595 [place] [address] 12-25-2024 14:16-0400 Respiratory rate 16 /min Dr. Kacey Navarro MD Work Phone: 8(388)344-120632 [place] [address] 12-25-2024 14:16-0400 SaO2% (BldA) [Mass fraction] 98 % Dr. Kacey Navarro MD Work Phone: 6(173)542-839595 [place] [address] 12-25-2024 14:16-0400 Systolic blood pressure 141 mm[Hg] Dr. Kacey Navarro MD Work Phone: 3(661)564-423632 [place] [address] 12-25-2024 13:15-0400 Inhaled oxygen flow rate 8 L/min Dr. Kacey Navarro MD Work Phone: 9(030)855-437295 [place] [address] 12-25-2024 08:29-0400 Body height 170.[address] Kacey Navarro MD Work Phone: 9(281)195-629295 [place] [address] 12-25-2024 08:29-0400 Body mass index (BMI) [Ratio] 42.7 kg/m2 Dr. Kacey Navarro MD Work Phone: 8(685)651-354732 [place] [address] 12-25-2024 08:29-0400 Body weight [address] Kacey Navarro MD Work Phone: 2(646)959-929532 [place] [address] 10-15-2023 15:14-0500 Body height 167.[address] Kacey Navarro Work Phone: 1(231)557-205595 [place] [address] 10-15-2023 15:14-0500 Body mass index (BMI) [Ratio] 45 kg/m2 Dr. Kacey Navarro Work Phone: 8(844)517-072195 [place] [address] 10-15-2023 15:14-0500 Body temperature 98.6 [degF] Dr. Kacey Navarro Work Phone: [facility] 10-15-2023 15:14-0500 Body weight 126.[address] Kacey Navarro Work Phone: [facility] 10-15-2023 15:14-0500 Diastolic blood pressure 68 mm[Hg] Dr. Kacey Navarro Work Phone: 4(446)558-877895 [place] [address] 10-15-2023 15:14-0500 Heart rate 99 /min Dr. Kacey Navarro Work Phone: 3(382)516-867695 [place] [address] 10-15-2023 15:14-0500 SaO2% (BldA) [Mass fraction] 95 % Dr. Kacey Navarro Work Phone: 6(266)966-625795 [place] [address] 10-15-2023 15:14-0500 Systolic blood pressure 114 mm[Hg] Dr. Kacey Navarro Work Phone: 7(450)171-831832 [place] [address] 05-01-2023 14:44-0400 Body height 167.[address] De La Rosa [facility] 05-01-2023 14:44-0400 Body mass index (BMI) [Ratio] 43.6 kg/m2 Dr. De La Rosa [facility] 05-01-2023 14:44-0400 Body temperature 98.1 [degF] Dr. De La [facility] 05-01-2023 14:44-0400 Body weight 122.[address] De La Rosa [facility] 05-01-2023 14:44-0400 Diastolic blood pressure 78 mm[Hg] Dr. De La Rosa [facility] 05-01-2023 14:44-0400 Heart rate 82 /min Dr. De La Rosa [facility] 05-01-2023 14:44-0400 Respiratory rate 18 /min Dr. De La [place] [facility] 05-01-2023 14:44-0400 SaO2% (BldA) [Mass fraction] 96 % Dr. De La [place] [facility] 05-01-2023 14:44-0400 Systolic blood pressure 132 mm[Hg] Dr. Rj [facility] 01-15-2023 08:58-0400 Diastolic blood pressure 66 mm[Hg] Juan Guallpa MD Work Phone: [facility] 01-15-2023 08:58-0400 Heart rate 96 /min Juan Guallpa MD Work Phone: [facility] 01-15-2023 08:58-0400 Respiratory rate 16 /min Juan Guallpa MD Work Phone: [facility] 01-15-2023 08:58-0400 SaO2% (BldA) [Mass fraction] 94 % Juan Guallpa MD Work Phone: [facility] 01-15-2023 08:58-0400 Systolic blood pressure 116 mm[Hg] Juan Guallpa MD Work Phone: [facility] 01-15-2023 07:48-0400 Body temperature 98.2 [degF] Juan Guallpa MD Work Phone: [facility] 01-15-2023 07:48-0400 Body weight 118.4 kg Juan Guallpa MD Work Phone: [facility] 01-02-2023 15:04-0400 Body height 167.[address] Rj Chaidez Work Phone: [facility] 01-02-2023 15:04-0400 Body mass index (BMI) [Ratio] 44.2 kg/m2 Dr. Rj Chaidez Work Phone: [facility] 01-02-2023 15:04-0400 Body temperature 98.6 [degF] Dr. Rj Chaidez Work Phone: [facility] 01-02-2023 15:04-0400 Body weight 124.[address] Rj Chaidez Work Phone: [facility] 01-02-2023 15:04-0400 Diastolic blood pressure 80 mm[Hg] Dr. Rj Chaidez Work Phone: [facility] 01-02-2023 15:04-0400 Heart rate 90 /min Dr. Rj Chaidez Work Phone: [facility] 01-02-2023 15:04-0400 Respiratory rate 16 /min Dr. Rj Chaidez Work Phone: [facility] 01-02-2023 15:04-0400 SaO2% (BldA) [Mass fraction] 94 % Dr. Rj Chaidez Work Phone: [facility] 01-02-2023 15:04-0400 Systolic blood pressure 131 mm[Hg] Dr. Rj Chaidez Work Phone: [facility] 10-17-2022 15:39-0500 Body height 167.6 cm Sandy Flint PA-C Work Phone: [facility] 10-17-2022 15:39-0500 Body temperature 98.6 [degF] Sandy Swathi PA-C Work Phone: [facility] 10-17-2022 15:39-0500 Body weight 118.39 kg Sandy Swathi PA-C Work Phone: [facility] 10-17-2022 15:39-0500 Diastolic blood pressure 82 mm[Hg] Sandy Swathi PA-C Work Phone: [facility] 10-17-2022 15:39-0500 Heart rate 103 /min Sandy Flint PA-C Work Phone: [facility] 10-17-2022 15:39-0500 SaO2% (BldA) [Mass fraction] 100 % Sandy Flint PA-C Work Phone: [facility] 10-17-2022 15:39-0500 Systolic blood pressure 126 mm[Hg] Sandy Flint PA-C Work Phone: [facility] 10-09-2022 15:02-0500 Body mass index (BMI) [Ratio] 42.6 kg/m2 Dr. Rj Chaidez Work Phone: [facility] 10-09-2022 15:02-0500 Body temperature 97.2 [degF] Dr. Rj Chaidez Work Phone: [facility] 10-09-2022 15:02-0500 Body weight 119.[address] Rj Chaidez Work Phone: [facility] 10-09-2022 15:02-0500 Diastolic blood pressure 76 mm[Hg] Dr. Rj Chaidez Work Phone: [facility] 10-09-2022 15:02-0500 Heart rate 76 /min Dr. Rj Chaidez Work Phone: [facility] 10-09-2022 15:02-0500 Respiratory rate 18 /min Dr. Rj Chaidez Work Phone: [facility] 10-09-2022 15:02-0500 SaO2% (BldA) [Mass fraction] 91 % Dr. Rj Chaidez Work Phone: [facility] 10-09-2022 15:02-0500 Systolic blood pressure 125 mm[Hg] Dr. Rj Chaidez Work Phone: [facility] 07-04-2022 15:17-0400 Body height 167.[address] Rj Chaidez Work Phone: [facility] Work Phone: 07-04-2022 15:17-0400 Body mass index (BMI) [Ratio] 41.6 kg/m2 Dr. Rj Chaidez Work Phone: [facility] Work Phone: 07-04-2022 15:17-0400 Body temperature 97 [degF] Dr. Rj Chaidez Work Phone: [facility] Work Phone: 07-04-2022 15:17-0400 Body weight 117.[address] Rj Chaidez Work Phone: [facility] Work Phone: 07-04-2022 15:17-0400 Diastolic blood pressure 79 mm[Hg] Dr. Rj Chaidez Work Phone: [facility] Work Phone: 07-04-2022 15:17-0400 Heart rate 79 /min Dr. Rj Chaidez Work Phone: [facility] Work Phone: 07-04-2022 15:17-0400 Respiratory rate 18 /min Dr. Rj Chaidez Work Phone: [facility] Work Phone: 07-04-2022 15:17-0400 SaO2% (BldA) [Mass fraction] 94 % Dr. Rj Chaidez Work Phone: [facility] Work Phone: 07-04-2022 15:17-0400 Systolic blood pressure 127 mm[Hg] Dr. Rj Chaidez Work Phone: [facility] Work Phone: 05-09-2022 15:17-0400 Body mass index (BMI) [Ratio] 41.3 kg/m2 Dr. Rj Chaidez Work Phone: [facility] Work Phone: 05-09-2022 15:17-0400 Body temperature 97.1 [degF] Dr. Rj Chaidez Work Phone: [facility] Work Phone: 05-09-2022 15:17-0400 Body weight 116.[address] Rj Chaidez Work Phone: [facility] Work Phone: 05-09-2022 15:17-0400 Diastolic blood pressure 81 mm[Hg] Dr. Rj Chaidez Work Phone: [facility] Work Phone: 05-09-2022 15:17-0400 Heart rate 96 /min Dr. Rj Chaidez Work Phone: [facility] Work Phone: 05-09-2022 15:17-0400 Respiratory rate 18 /min Dr. Rj Chaidez Work Phone: [facility] Work Phone: 05-09-2022 15:17-0400 SaO2% (BldA) [Mass fraction] 93 % Dr. Rj Chaidez Work Phone: [facility] Work Phone: 05-09-2022 15:17-0400 Systolic blood pressure 172 mm[Hg] Dr. Rj Chaidez Work Phone: [facility] Work Phone: 01-17-2022 15:28-0400 Body height 167.[address] Rj Chaidez Work Phone: [facility] Work Phone: 01-17-2022 15:28-0400 Body mass index (BMI) [Ratio] 41.2 kg/m2 Dr. Rj Chaidez Work Phone: [facility] Work Phone: 01-17-2022 15:28-0400 Body temperature 96.7 [degF] Dr. Rj Chaidez Work Phone: [facility] Work Phone: 01-17-2022 15:28-0400 Body weight 115.[address] Rj Chaidez Work Phone: [facility] Work Phone: 01-17-2022 15:28-0400 Diastolic blood pressure 82 mm[Hg] Dr. Rj Chaidez Work Phone: [facility] Work Phone: 01-17-2022 15:28-0400 Heart rate 84 /min Dr. Rj Chaidez Work Phone: [facility] Work Phone: 01-17-2022 15:28-0400 Respiratory rate 18 /min Dr. Rj Chaidez Work Phone: [facility] Work Phone: 01-17-2022 15:28-0400 SaO2% (BldA) [Mass fraction] 98 % Dr. Rj Chaidez Work Phone: [facility] Work Phone: 01-17-2022 15:28-0400 Systolic blood pressure 130 mm[Hg] Dr. Rj Chaidez Work Phone: [facility] Work Phone: Encounters Encounter Date Encounter Type Care Provider Facility Start: 06-15-2025 ambulatory Kacey Navarro Facilit y:[facility] Start: 05-26-2025 End: 05-26-[address] Kacey Navarro MD Work Phone: -Ultrasound [facility] Start: 05-26-2025 End: 05-26-[address] Kacey Navarro MD -Ultrasound [facility] Work Phone: Start: 05-26-2025 End: 05-26-2025 ambulatory Kacey Navarro Facility:[facility] Start: 05-19-2025 End: 05-19-[address] Kacey Navarro MD Work Phone: -Laboratory [facility] Start: 05-19-2025 End: 05-19-[address] Kacey Navarro MD -Laboratory [facility] Start: 05-19-2025 End: 05-19-2025 ambulatory Kacey Navarro Facility:[facility] Start: 02-18-2025 ambulatory Kacey Navarro Facilit y:[facility] Start: 01-22-2025 End: 01-22-[address] Chris Booker MD -[facility] Work Phone: Start: 01-22-2025 End: 01-22-[address] Kacey Navarro MD Work Phone: [facility] Work Phone: Start: 01-13-2025 End: 01-13-[address] Kacey Navarro MD Work Phone: [facility] Work Phone: Start: 01-13-2025 End: 01-13-[address] [facility] Start: 01-13-2025 End: 01-13-2025 ambulatory Kacey Navarro Facility:[facility] Start: 12-25-2024 End: 12-25-2024 Admission to same day surgery center Dr. Justo Terry DO -[facility] Start: 12-25-2024 End: 12-25-[address] Kacey Navarro MD Work Phone: [facility] Work Phone: Start: 12-18-2024 End: 12-18-2024 ambulatory Prakash Ortega Facility:[facility] Start: 12-18-2024 End: 12-18-2024 Non-patient / Non-visit Dr. Prakash Ortega MD -[facility] Work Phone: Start: 11-24-2024 End: 06-09-2025 ambulatory JACQUIE ROMERO PA-C Facility[place] [place] Start: 11-24-2024 End: 06-09-2025 Physical therapy management JACQUIE ROMERO PA-C [facility] Start: 11-19-2024 End: 11-19-2024 ambulatory JACQUIE ROMERO PA-C [facility] Start: 11-18-2024 End: 11-18-[address] Kacey Navarro MD Work Phone: [facility] Work Phone: Start: 11-18-2024 End: 11-18-[address] Mauricio Morales MD -Laboratory Work Phone: Start: 11-18-2024 End: 11-18-2024 ambulatory Mauricio Morales Facility:[facility] Start: 10-08-2024 End: 10-08-[address] [facility] Start: 10-08-2024 End: 10-08-2024 ambulatory Kacey Navarro Facility:[facility] Start: 07-22-2024 ambulatory Kacey Navarro Facilit y:[facility] Start: 07-15-2024 End: 07-15-2024 ambulatory Chris Booker Facility:[facility] Start: 07-15-2024 End: 07-15-2024 ambulatory Kacey Navarro Facility:[facility] Start: 10-15-2023 End: 10-15-[address] Kacey Navarro Work Phone: [facility] Work Phone: Start: 09-27-2023 End: 09-27-2023 ambulatory [facility] Work Phone: Start: 09-27-2023 End: 09-27-2023 Patient encounter [facility] Start: 08-22-2023 End: 08-22-2023 ambulatory [facility] Work Phone: Start: 08-22-2023 End: 08-22-2023 Patient encounter procedure [facility]-Radiology, [facility] Work Phone: Start: 08-07-2023 End: 08-07-[address] Rj Chaidez [facility] Work Phone: Start: 08-07-2023 End: 08-07-[address] Rj Chaidez [facility]-Radiology, [place] Work Phone: Start: 05-16-2023 End: 05-16-[address] Rj Chaidez [facility] Work Phone: Start: 05-16-2023 End: 05-16-[address] Rj Chaidez [facility] Start: 05-15-[address] Rj Newton [facility] Therapy Work Phone: Start: 05-01-2023 End: 05-01-[address] Rj Chaidez [facility] Work Phone: Start: 03-29-2023 End: 03-29-[address] Rj Chaidez [facility]-Nuclear Medicine, [facility] Work Phone: Start: 02-13-2023 End: 02-14-2023 ambulatory NIK LEGER Facility:[id number] Start: 02-13-2023 End: 02-13-2023 Subsequent hospital visit by physician Xr [facility] RADIO [facility] Start: 01-31-2023 End: 02-01-2023 ambulatory RJ CHAIDEZ Facility:[id number] Start: 01-31-2023 Encounter for other preprocedural examination [facility] Start: 01-23-2023 Non-patient / Non-visit Dr. Db Chaidez Work Phone: [facility] Start: 01-23-[address] Rj Chaidez Work Phone: [facility]-Cardiovascular Services Start: 01-18-2023 End: 01-18-[address] Rj Chaidez Work Phone: [facility] Work Phone: Start: 01-18-2023 End: 01-18-[address] Rj Chaidez Work Phone: [facility] Start: 01-15-2023 End: 01-15-2023 ambulatory JUAN GUALLPA Facility:[facility] Start: 01-15-2023 End: 01-15-2023 Subsequent hospital visit by physician Juan Guallpa MD Work Phone: Ambulatory Surgery Comment on above: Personal history of colonic polyps [Z86.010] Start: 01-12-2023 End: 01-13-[address] NIK LEGER DO Facility:[facility] Start: 01-08-2023 End: [address] NIK LEGER DO Facility:[facility] Start: 01-08-2023 End: 01-08-[address] NIK LEGER DO [facility] Start: 01-02-2023 End: 01-02-[address] Rj Chaidez Work Phone: [facility] Start: 12-28-2022 Telephone encounter Juan hess MD Work Phone: General Surgery Comment on above: Patient Update Start: 11-24-2022 Telephone encounter Juan hess MD Work Phone: Ambulatory Surgery Comment on above: Procedure (Cancellat ion ) Start: 11-09-2022 End: 11-10-2022 ambulatory RJ CHAIDEZ MD Facility:[facility] Start: 11-09-2022 End: 11-09-2022 Patient encounter procedure BEREKET MENDEZ MD [facility] Start: 10-17-2022 End: 10-17-2022 ambulatory VLAD KAUR Facility:[facility] Start: 10-17-2022 End: 10-17-2022 Patient encounter procedure Sandy Kessler PA-C Work Phone: General Surgery Comment on above: Encounter for screen ing for malignant neoplasm of colon (Primary Dx); Personal history of colonic polyps Start: 10-09-2022 End: 10-09-[address] Rj Chaidez Work Phone: [facility] Start: 08-31-2022 End: 08-31-[address] Rj Chaidez Work Phone: [facility] Work Phone: Start: 08-31-2022 End: 08-31-[address] Rj Chaidez Work Phone: [facility]-Physical Therapy Start: 07-24-2022 End: 07-24-[address] Rj Chaidez Work Phone: [facility] Work Phone: Start: 07-24-2022 End: 07-24-[address] [facility] Start: 07-04-2022 End: 07-04-[address] Rj Chaidez Work Phone: [facility] Start: 05-09-2022 End: 05-09-[address] Rj Chaidez Work Phone: [facility] Start: 04-18-2022 End: 04-19-2022 ambulatory RJ CHAIDEZ MD Facility:[facility] Start: 04-18-2022 End: 04-18-2022 Patient encounter procedure KACEY AUSTIN MD [facility] Start: 03-14-2022 End: 03-15-2022 ambulatory RJ CHAIDEZ MD Facility:[facility] Start: 02-13-2022 End: 02-14-2022 ambulatory RJ CHAIDEZ MD Facility:[facility] Start: 02-13-2022 End: 02-13-2022 Patient encounter procedure EDIE CHRIS DO [facility] Start: 01-17-2022 End: 01-17-[address] Rj Chaidez Work Phone: [facility] Start: 08-08-2021 End: 08-08-2021 Patient encounter procedure BHAVANI SCHULTE [facility] Procedures Date Procedure Procedure Detail Performing Clinician Start: 05-26-2025 US scan of thyroid Dr. Kacey Navarro MD Work Phone: Start: 05-19-2025 Urnls dip stick/tabl et reagent auto microscopy Dr. Kacey Navarro MD Work Phone: Start: 05-19-[address] Kacey Navarro MD Work Phone: Start: 05-19-2025 Vitamin D, 25-hydrox y measurement Dr. Kacey Navarro MD Work Phone: Comment on above: Vitamin D StatusDefi ciency: <20 ng/mL (50nmol/L)Insufficiency: 20-30 ng/mL (50-75 nmol/L)Sufficiency: 30-100 ng/mL (75-250 nmol/L)Toxicity: >100 ng/mL (>250 nmol/L) Start: 01-13-[address] Kacey [...] Phone: Comment on above: [employer]. Start: 11-18-2024 Prostate specific an tigen measurement Dr. Kacey Navarro MD Work Phone: Comment on above: [employer].According to the [place] [employer], Serum PSAshould decrease and remain [...] med using the TPSA assay method for the[facility] chemistry system. Values obtained with differentassay methods [...] Speci men Type: BLOOD SPECIMEN Ordering Facility: [facility] Address: [address] [place], [place] [address] Performed By: #### T [id number] #### [facility] CLIA [id number] [address] [place] [address] OF [facility] Start: 01-23-2023 Cardiovascular stres s test using pharmacologic stress agent Dr. Rj Chaidez Work Phone: Start: 01-15-2023 Colonoscopy flx dx w /collj spec when pfrmd Sandy Kessler PA-C Work Phone: Start: 01-15-2023 Colonoscopy Juan florence MD Work Phone: Start: 11-04-2019 Colonoscopy Sandy shipman PA-C Work Phone: Start: 02-09-2016 Arthroscopy of knee with meniscus repair BHAVANI SCHULTE Comment on above: Left knee- Dr. Janelle palacio Start: 05-11-2013 Decompression of median nerve BHAVANI SCHULTE Comment on above: Dr. Garcia- both wri sts Plan of Treatment Date Care Activity Detail Author Start: 01-16-2028 Colonoscopy Colonoscopy [facility] Start: 01-16-2028 Colorectal Cancer Screening Colorectal Cancer Screening [facility] Start: 01-15-2026 Colonoscopy COLONOSCOPY [facility] Start: 01-15-2026 COLORECTAL CANCER SCREENING COLORECTAL CANCER SCREENING [facility] Start: 05-26-2025 US scan of thyroid Thyroid [facility] Start: 12-25-2024 Anes arthrs humeral h/n strnclav & shoulder nos ANESTH SURGERY OF SHOULDER [facility] Start: 12-25-2024 Arthroscopy shoulder biceps tenodesis MERCEDES ARTHRS SRG BICP TENODSIS [facility] Start: 12-25-2024 Arthroscopy shoulder rotator cuff repair MERCEDES ARTHRS SRG [id number] CUF RPR [facility] Start: 12-25-2024 Application of ice collar, cap or bag [facility] Start: 12-25-2024 Catheterization of vein [facility] Start: 12-25-2024 Following clinical pathway protocol [facility] Start: 12-25-2024 Patient discharge [facility] Start: 12-25-2024 Procedure discontinued [facility] Start: 12-25-2024 Taking patient vital signs [facility] Start: 12-25-2024 Vital signs measurements [facility] Start: 12-25-2024 [facility] Start: 12-25-2024 Medication education [facility] Start: 08-03-2023 Hemoglobin A1c/Hemoglobin.total in Blood HBA1C [facility] Start: 05-11-2023 Covid-19 Vaccine () Covid-19 Vaccine () [facility] Start: 05-11-2023 Influenza vaccination [facility] Start: 01-23-2023 US scan of thyroid Thyroid [facility] Start: 01-23-2023 US Thyroid gland [facility] Start: 11-04-2022 Colonoscopy COLONOSCOPY [facility] Start: 11-04-2022 COLORECTAL CANCER SCREENING COLORECTAL CANCER SCREENING [facility] Start: 09-10-2022 DEPRESSION ASSESSMENT DEPRESSION ASSESSMENT [facility] Start: 05-09-2022 Patient referral [facility] Work Phone: Start: 11-02-2021 COVID-19 VACCINE (4 - Booster for Moderna series) COVID-19 VACCINE (4 - Booster for Moderna series) [facility] Start: 2020 Hepatitis B Vaccine (1 of 3 - Risk 3-dose series) Hepatitis B Vaccine (1 of 3 - Risk 3-dose series) [facility] Start: 2020 RSV Vaccine (1 - 1-dose 60+ series) RSV Vaccine (1 - 1-dose 60+ series) [facility] Start: 09-15-2016 3 comp foot exam completed DIABETIC FOOT EXAM [facility] Start: 03-19-2016 Hepatitis B screening URINE ALBUMIN:CREATININE RATIO [facility] Start: 03-19-2016 Hepatitis B surface antibody level LDL CHOLESTEROL [facility] Start: 03-15-2016 Hemoglobin A1c/Hemoglobin.total in Blood HBA1C [facility] Start: 01-08-2016 Hepatitis C antibody, confirmatory test DILATED RETINAL EXAM [facility] Start: 08-31-2015 PROSTATE CANCER SCREENING DISCUSSION PROSTATE CANCER SCREENING DISCUSSION [facility] Start: 03-17-2010 PNEUMOCOCCAL (2 - PCV) PNEUMOCOCCAL (2 - PCV) [facility] Start: 03-17-2010 Pneumococcal vaccination Pneumococcal Vaccine (2 - PCV) [facility] Start: 01-08-2010 SHINGRIX VACCINE (1 of 2) SHINGRIX VACCINE (1 of 2) [facility] Start: 01-08-2005 COLOGUARD (FIT-DNA) COLOGUARD (FIT-DNA) [facility] Start: 01-08-[address] COLONOGRAPHY [facility] Start: 01-08-2005 FECAL OCCULT BLOOD FECAL OCCULT BLOOD [facility] Start: 01-08-2005 SIGMOIDOSCOPY SIGMOIDOSCOPY [facility] Start: 01-08-1979 Urine microalbumin profile [facility] Start: 01-08-1978 ANNUAL PCP TEAM CHRONIC DISEASE VISIT ANNUAL PCP TEAM CHRONIC DISEASE VISIT [facility] Start: 01-08-1978 BP CONTROLLED (<130/80) BP CONTROLLED (<130/80) [facility] Start: 01-08-1978 HEPATITIS C SCREENING HEPATITIS C SCREENING [facility] Start: 01-08-1978 HIV SCREENING HIV SCREENING [facility] Patient referral [facility] Work Phone: [facility] Immunizations Immunization Date Immunization Notes Care Provider Fa cili 07-24-2022 influenza virus vacc ine, unspecified formulation Jaun Guallpa MD Work Phone: [facility] 12-03-2020 COVID-19, mRNA, LNP- S, PF, 100 mcg/ 0.5 mL dose; Translations: [Moderna COVID-19 Vaccine] BHAVANI SCHULTE [facility] 11-05-2020 COVID-19, mRNA, LNP- S, PF, 100 mcg/ 0.5 mL dose; Translations: [Moderna COVID-19 Vaccine] BHAVANI SCHULTE [facility] 03-17-2009 pneumococcal polysaccharide vaccine, 23 valent Sandy Kessler PA-C Work Phone: [facility] Work Phone: 07-18-2006 influenza virus vacc ine, unspecified formulation Sandy Kessler PA-C Work Phone: [facility] Work Phone: Payers Date Payer Category Payer Private Health Insurance [id number] 2024 Unknown [id number] 2024 Unknown [id number] 2024 Self-pay [id number] 2019 Unknown [id number] 2018 Private Health Insurance abc [id number] 2006 Unknown [id number] 1960 Unknown [id number] 2.16.8 [id number] 1960 Unknown [id number] 2.16.8 40.1.739382.3.579.2.627 1960 Unknown [id number] 2.16.8 40.1.510467.3.579.2.627 1960 Unknown [id number] 2.16.8 40.1.621026.3.579.2.627 1960 Unknown [id number] 2.16.8 40.1.186835.3.579.2. 1960 Unknown [id number] 2.16.8 40.1.094115.3.579.2.7 1960 Unknown [id number] 2.16.8 40.1.926236.3.579.2. 1960 Unknown [id number] 2.16. 840.1.723789.3.579.2. 1960 Unknown [id number] 2.16.8 40.1.872364.3.579.2.627 Unknown [id number] 2.16.8 40.1.620115.3.579.2.462 Unknown [id number] 2.16.8 40.1.766972.3.579.2.462 Unknown [id number] 2.16.8 40.1.964255.3.579.2.462 Unknown [id number] 2.16.8 40.1.211490.3.579.2.462 Unknown [id number] 2.16.8 40.1.636961.3.579.2.462 Unknown [id number] 2.16.8 40.1.355249.3.579.2.462 Unknown [id number] 2.16.8 40.1.139237.3.579.2.462 Unknown [id number] 2.16.8 40.1.096977.3.579.2.462 Unknown [id number] 2.16.8 40.1.026445.3.579.2.462 Unknown [id number] 2.16.8 40.1.245892.3.579.2.462 Unknown [id number] 2.16.8 40.1.058235.3.579.2.462 Unknown [id number] 2.16.8 40.1.562085.3.579.2.462 Unknown [id number] 2.16.8 40.1.133240.3.579.2.462 Social History Date Type Detail Facility Start: 07-23-2019 End: 12-15-2024 Never smoked tobacco (finding) [facility] Sex Assigned At [facility] Start: 01-17-2022 End: 10-15-2023 Tobacco smoking status PAIS Unknown if ever smoked [facility] Start: 1960 Sex Assigned At Male W [facility] Start: 10-28-2012 End: 01-30-2023 Tobacco use and exposure Smokeless tobacco non-user [facility] Start: 10-17-2022 End: 01-15-2023 Alcohol intake Current non-drinker of alcohol (finding) [facility] Start: 1960 Sex Assigned At Not on file C [facility] History of tobacco use Passive smoker [facility] Start: 01-31-2023 Alcohol intake Lifetime non-d laci (finding) [facility] Start: 10-17-2022 End: 01-15-2023 History of Social function [facility] Start: 10-17-2022 End: 01-15-2023 Tobacco use panel [facility] National Score (1-100), lower number is lower risk 85 [facility] Start: 02-28-2016 End: 11-26-2024 Sex Male (finding) [facility] Medical Equipment Procedure Code Equipment Code Equipment Origin al Text Equipment Identifier Dates Arthroscopy, shoulder, with rotator cuff repair SWIVELOC,KLESS 4.75 SELF PUNCH FDA Start: 12-25-2024 Arthroscopy, shoulder, with rotator cuff repair SWIVELOC,KLESS 4.75 SELF PUNCH FDA Start: 12-25-2024 Arthroscopy, shoulder, with rotator cuff repair SWIVELOC,KLESS 4.75 SELF PUNCH FDA Start: 12-25-2024 Arthroscopy, shoulder, with rotator cuff repair Tendon/ligament bone anchor, non-bioabsorbable ()[id number] FDA Start: 12-25-2024 Arthroscopy, shoulder, with rotator cuff repair Tendon/ligament bone anchor, non-bioabsorbable ()[id number] FDA Start: 12-25-2024 Arthroscopy, shoulder, with rotator [...] 12-25-2024 Pen Needle, Diabetic (Comfort Ez Pen Kent) 31 gauge x 5/16 needle Start: 08-09-2021 Pen Needle, Diabetic (Comfort Ez Pen Kent) 31 gauge x 5/16 needle Start: 11-29-2020 End: 12-07-2020 Pen Needle, Diabetic (Comfort Ez Pen Kent) 31 gauge x 5/16 needle Start: 12-07-2020 End: 08-09-2021 See Instructions , BD UF 8mm 31 G (short) qs 1 month supply, # 200 EA, 3 Refill(s), Pharmacy: [facility], 167, cm, 11/04/19 15:51:00 EST, Height, 116, kg, 11/04/19 15:51:00 EST, Dosing Weight Start: 11-04-2019 See Instructions , BD UF 8mm 31 G (short) qs 1 month supply, # 200 EA, 3 Refill(s), Pharmacy: [facility], 167, cm, 11/04/19 15:51:00 EST, Height, 116, kg, 11/04/19 15:51:00 EST, Dosing Weight Start: 11-04-2019 Pen Needle, Diabetic (Comfort Ez Pen Kent) 31 gauge x 5/16 needle Start: 08-09-2021 Pen Needle, Diabetic (Comfort Ez Pen Kent) 31 gauge x 5/16 needle Start: 11-29-2020 End: 12-07-2020 Pen Needle, Diabetic (Comfort Ez Pen Kent) 31 gauge x 5/16 needle Start: 12-07-2020 End: 08-09-2021 Pen Needle, Diabetic (Comfort Ez Pen Kent) 31 gauge x 5/16 needle Start: 08-09-2021 Pen Needle, Diabetic (Comfort Ez Pen Kent) 31 gauge x 5/16 needle Start: 11-29-2020 End: 12-07-2020 Pen Needle, Diabetic (Comfort Ez Pen Kent) 31 gauge x 5/16 needle Start: 12-07-2020 End: 08-09-2021 Start: 09-13-2015 End: 01-30-2023 Comment on above: before meals and at bedtime. accu check test strips Use as instructed 3-4 times daily. For insulin injectio n 3x daily. Two daily for insuli n injections. See Instructions , BD UF 8mm 31 G (short) qs 1 month supply, # 200 EA, 3 Refill(s), Pharmacy: [facility], 167, cm, 11/04/19 15:51:00 EST, Height, 116, kg, 11/04/19 15:51:00 EST, Dosing Weight Start: 11-04-2019 See Instructions , BD UF 8mm 31 G (short) qs 1 month supply, # 200 EA, 3 Refill(s), Pharmacy: [facility], 167, cm, 11/04/19 15:51:00 EST, Height, 116, kg, 11/04/19 15:51:00 EST, Dosing Weight Start: 11-04-2019 See Instructions , BD UF 8mm 31 G (short) qs 1 month supply, # 200 EA, 3 Refill(s), Pharmacy: [facility], 167, cm, 11/04/19 15:51:00 EST, Height, 116, kg, 11/04/19 15:51:00 EST, Dosing Weight Start: 11-04-2019 Pen Needle, Diabetic (Comfort Ez Pen Kent) 31 gauge x 5/16 needle Start: 08-09-2021 Pen Needle, Diabetic (Comfort Ez Pen Kent) 31 gauge x 5/16 needle Start: 11-29-2020 End: 12-07-2020 Pen Needle, Diabetic (Comfort Ez Pen Kent) 31 gauge x 5/16 needle Start: 12-07-2020 End: 08-09-2021 Bone Vivigen Formable 10cc - [id number] FDA Start: 02-13-2023 Fibergraft Bg Matrix Graft Substitute Synthetic Med 6.25cc [id number] Start: 02-13-2023 Prime Dbm Hd [id number] Start: 02-13-2023 Mariano Expedium 5.5 mm Titanium 45mm Spinal Prebent Line Nonsterile - [id number] Start: 02-13-2023 Expedium 5.50 Ti X25 Set Screw [id number] Start: 02-13-2023 Pen Needle, Diabetic (Comfort Ez Pen Kent) 31 gauge x 5/16 needle Start: 05-01-2023 Pen Needle, Diabetic (Comfort Ez Pen Kent) 31 gauge x 5/16 needle Start: 08-09-2021 End: 05-01-2023 Pen Needle, Diabetic (Comfort Ez Pen Kent) 31 gauge x 5/16 needle Start: 11-29-2020 End: 12-07-2020 Pen Needle, Diabetic (Comfort Ez Pen Kent) 31 gauge x 5/16 needle Start: 12-07-2020 End: 08-09-2021 Pen Needle, Diabetic (Comfort Ez Pen Kent) 31 gauge x 5/16 needle Start: 05-01-2023 Pen Needle, Diabetic (Comfort Ez Pen Kent) 31 gauge x 5/16 needle Start: 08-09-2021 End: 05-01-2023 Pen Needle, Diabetic (Comfort Ez Pen Kent) 31 gauge x 5/16 needle Start: 11-29-2020 End: 12-07-2020 Pen Needle, Diabetic (Comfort Ez Pen Kent) 31 gauge x 5/16 needle Start: 12-07-2020 End: 08-09-2021 Pen Needle, Diabetic (Comfort Ez Pen Kent) 31 gauge x 5/16 needle Start: 05-01-2023 Pen Needle, Diabetic (Comfort Ez Pen Kent) 31 gauge x 5/16 needle Start: 08-09-2021 End: 05-01-2023 Pen Needle, Diabetic (Comfort Ez Pen Kent) 31 gauge x 5/16 needle Start: 11-29-2020 End: 12-07-2020 Pen Needle, Diabetic (Comfort Ez Pen Kent) 31 gauge x 5/16 needle Start: 12-07-2020 End: 08-09-2021 Pen Needle, Diabetic (Comfort Ez Pen Kent) 31 gauge x 5/16 needle Start: 05-01-2023 Pen Needle, Diabetic (Comfort Ez Pen Kent) 31 gauge x 5/16 needle Start: 08-09-2021 End: 05-01-2023 Pen Needle, Diabetic (Comfort Ez Pen Kent) 31 gauge x 5/16 needle Start: 11-29-2020 End: 12-07-2020 Pen Needle, Diabetic (Comfort Ez Pen Kent) 31 gauge x 5/16 needle Start: 12-07-2020 End: 08-09-2021 Pen Needle, Diabetic (Comfort Ez Pen Kent) 31 gauge x 5/16 needle Start: 05-01-2023 Pen Needle, Diabetic (Comfort Ez Pen Kent) 31 gauge x 5/16 needle Start: 08-09-2021 End: 05-01-2023 Pen Needle, Diabetic (Comfort Ez Pen Kent) 31 gauge x 5/16 needle Start: 11-29-2020 End: 12-07-2020 Pen Needle, Diabetic (Comfort Ez Pen Kent) 31 gauge x 5/16 needle Start: 12-07-2020 End: 08-09-2021 Pen Needle, Diabetic (Comfort Ez Pen Kent) 31 gauge x 5/16 needle Start: 05-01-2023 Pen Needle, Diabetic (Comfort Ez Pen Kent) 31 gauge x 5/16 needle Start: 08-09-2021 End: 05-01-2023 Pen Needle, Diabetic (Comfort Ez Pen Kent) 31 gauge x 5/16 needle Start: 11-29-2020 End: 12-07-2020 Pen Needle, Diabetic (Comfort Ez Pen Kent) 31 gauge x 5/16 needle Start: 12-07-2020 End: 08-09-2021 Pen Needle, Diabetic (Comfort Ez Pen Kent) 31 gauge x 5/16 needle Start: 05-01-2023 Pen Needle, Diabetic (Comfort Ez Pen Kent) 31 gauge x 5/16 needle Start: 08-09-2021 End: 05-01-2023 Pen Needle, Diabetic (Comfort Ez Pen Kent) 31 gauge x 5/16 needle Start: 11-29-2020 End: 12-07-2020 Pen Needle, Diabetic (Comfort Ez Pen Kent) 31 gauge x 5/16 needle Start: 12-07-2020 End: 08-09-2021 Pen Needle, Diabetic (Comfort Ez Pen Kent) 31 gauge x 5/16 needle Start: 05-01-2023 Pen Needle, Diabetic (Comfort Ez Pen Kent) 31 gauge x 5/16 needle Start: 08-09-2021 End: 05-01-2023 Pen Needle, Diabetic (Comfort Ez Pen Kent) 31 gauge x 5/16 needle Start: 11-29-2020 End: 12-07-2020 Pen Needle, Diabetic (Comfort Ez Pen Kent) 31 gauge x 5/16 needle Start: 12-07-2020 End: 08-09-2021 Pen Needle, Diabetic (Comfort Ez Pen Kent) 31 gauge x 5/16 needle Start: 05-01-2023 Pen Needle, Diabetic (Comfort Ez Pen Kent) 31 gauge x 5/16 needle Start: 08-09-2021 End: 05-01-2023 Pen Needle, Diabetic (Comfort Ez Pen Kent) 31 gauge x 5/16 needle Start: 11-29-2020 End: 12-07-2020 Pen Needle, Diabetic (Comfort Ez Pen Kent) 31 gauge x 5/16 needle Start: 12-07-2020 End: 08-09-2021 Pen Needle, Diabetic (Comfort Ez Pen Kent) 31 gauge x 5/16 needle Start: 05-01-2023 Pen Needle, Diabetic (Comfort Ez Pen Kent) 31 gauge x 5/16 needle Start: 08-09-2021 End: 05-01-2023 Pen Needle, Diabetic (Comfort Ez Pen Kent) 31 gauge x 5/16 needle Start: 11-29-2020 End: 12-07-2020 Pen Needle, Diabetic (Comfort Ez Pen Kent) 31 gauge x 5/16 needle Start: 12-07-2020 End: 08-09-2021 Pen Needle, Diabetic (Comfort Ez Pen Kent) 31 gauge x 5/16 needle Start: 05-01-2023 Pen Needle, Diabetic (Comfort Ez Pen Kent) 31 gauge x 5/16 needle Start: 08-09-2021 End: 05-01-2023 Pen Needle, Diabetic (Comfort Ez Pen Kent) 31 gauge x 5/16 needle Start: 11-29-2020 End: 12-07-2020 Pen Needle, Diabetic (Comfort Ez Pen Kent) 31 gauge x 5/16 needle Start: 12-07-2020 End: 08-09-2021 See Instructions , BD UF 8mm 31 G (short) qs 1 month supply, # 200 EA, 3 Refill(s), [facility], 167, cm, 11/04/19 15:51:00 EST, Height, 116, kg, 11/04/19 15:51:00 EST, Dosing Weight Start: 11-04-2019 Goals Date Patient Goal Desired Activity /State Mental Status Date Assessment Result Facility 12-25-2024 Cognitive function Level Of Consciousness Sedated [facility] Work Phone: 12-25-2024 Cognitive function Voice/Name [facility] Work Phone: Clinical Notes 10-17-2022 to 05-28-2025 Note Date & Type Note Facility 05-28-2025 Radiology Diagnostic study note [facility] Imaging Services [address] [place] [address] Thyroid MR#: [id number] Acct: [id number] Name: VLAD SIDDIQI Rep #: [id number] : 1960 M 65 From: Ramón Nina MD PCP: Dr. Kacey Navarro MD Status: RE G CLI Study:Thyroid Date of Exam: 05/26/25 Exam# [id number] Ordering Dr: Kacey Navarro MD PROCEDURE: THYROID 05/26/2025 REASON FOR EXAM: NODULE TECHNIQUE: Procedure Code: USTHY Modality: US Procedure: THYROID COMPARISON: Previous exam dated February 05, 2024 FINDINGS: Right thyroid lobe size: 5 x 2.1 x 2.5 cm Left thyroid lobe size: 2.8 x 1.3 x 1.2 cm Isthmus: 0.4 cm Background parenchymal echotexture is heterogeneous echo architecture Nodules: 1. Lobe: Right, Location: Mid, Size: 0.3 cm, Stability: New Composition: Cystic or mostly cystic (+0) Echogenicity: Anechoic (+0) Margin: Smooth (+0) Shape: Wider than tall (+0) Echogenic Foci: None (+0) TI-RADS: 1 Cystic nodule noted previously in the inferior lobe of the right thyroid gland has resolved. US/Thyroid IMPRESSION: Heterogeneous thyroid gland with no solid nodule. 3 previously described cysticnodule in the right inferior thyroid lobe has resolved. A new tiny 3 mm nonspecific cystic nodule is seen in the right midgland. TI-RADS 1. No suspicious nodule to recommend follow-up. Reading Location: [id number] CC: Dr. Kacey Navarro MD ~ Development Manager: Signed [facility] 12-25-2024 Procedure note [facility] 12-25-2024 Consult note Note Date/Time December 25, 2024 9:12am [facility] Medical Records Department [address] [place] [address] Pre-Anesthesia Evaluation 12/25/24 0854 MR#: [id number] Acct: [id number] Name: VLAD SIDDIQI Megan Rep #:[id number] : 1960 64 From: Jose Chung MD PCP: Dr. Kacey Navarro MD Status:LINDA Toussaint [facility] Y Race: C Location: [place] [address] ASA Classification* ASA Classification ASA Classification: 3 [...] biceps tenodesis. Anesthesia History Anesthesia History - middleware solutions architect: Anesthesia History - middleware solutions architect Hx Hospitalization No 12/15/24 15:07 Any Problems [...] sips of water?: Yes PONV PONV - middleware solutions architect: PONV - middleware solutions architect Female No 12/15/24 15:07 HX of Motion [...] 12/25/24 08:29 Respiratory Assessment Respiratory Assessment - middleware solutions architect: Respiratory Tract Infection Hx - middleware solutions architect Hx Respiratory Tract Infection No 12/15/24 15:07 STOP Sleep Apnea STOP Sleep Apnea - middleware solutions architect: STOP Sleep Apnea - middleware solutions architect Hx Hypertension Yes: CONTROLLED WITH MED 12/15/24 [...] 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 History - middleware solutions architect: Tobacco Use History - middleware solutions architect Tobacco Use Smoking Status Never smoker 12/15/24 15:07 Hx Tobacco Use No 12/15/24 15:07 Years Smoking Packs Smoked per Day Smoking Cessation Date was within the last 15 years Hx Smoking Cessation Date Hx Smoking Cessation Counseling Hematologic Medial History Hematologic Hx - middleware solutions architect: Hematologic 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 Hx of Blood Transfusion No 12/15/24 15:07 [...] confused, unrespo /Reproduction History /Reproductive History - middleware solutions architect: /Reproductive Hx- middleware solutions architect Hx Now No 12/15/24 15:07 Gestational Age [...] 08:32 IV 15 mls/hr .Q48H DYLON Administration [facility] Medical History Wears glasses Insulin dependent diabetes [...] Unkno wn Rx 01/23 (Comfort EZ Pen Kent) fluticasone propionate 50 2 spray intranasal DAILY [...] MD Cosigner Signature: Date CC: ~ Signed [facility] Work Phone: 1(792) 928-361004-17-2025 Consult note [facility] Medical Records Department [address] [place] [address] Pre-Anesthesia Evaluation 12/25/24 0854 MR#: [id number] Acct: [id number] Name: VLAD SIDDIQI Rep #:[id number] : 1960 64 From: Jose Chung MD PCP: Dr. Kacey Navarro MD Status: G [facility] Y Race: C Location: [place] [address] ASA Classification* ASA Classification ASA Classification: 3 [...] biceps tenodesis. Anesthesia History Anesthesia History - middleware solutions architect: Anesthesia History - middleware solutions architect Hx Hospitalization No 12/15/24 15:07 Any Problems [...] sips of water?: Yes PONV PONV - middleware solutions architect: PONV - middleware solutions architect Female No 12/15/24 15:07 HX of Motion [...] 12/25/24 08:29 Respiratory Assessment Respiratory Assessment - middleware solutions architect: Respiratory Tract Infection Hx - middleware solutions architect Hx Respiratory Tract Infection No 12/15/24 15:07 STOP Sleep Apnea STOP Sleep Apnea - middleware solutions architect: STOP Sleep Apnea - middleware solutions architect Hx Hypertension Yes: CONTROLLED WITH MED 12/15/24 [...] 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 History - middleware solutions architect: Tobacco Use History - middleware solutions architect Tobacco Use Smoking Status Never smoker 12/15/24 15:07 Hx Tobacco Use No 12/15/24 15:07 Years Smoking Packs Smoked per Day Smoking Cessation Date was within the last 15 years Hx Smoking Cessation Date Hx Smoking Cessation Counseling Hematologic Medial History Hematologic Hx - middleware solutions architect: 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 Hx of Blood Transfusion No 12/15/24 15:07 [...] confused, unrespo /Reproduction History /Reproductive History - middleware solutions architect: /Reproductive Hx- middleware solutions architect Hx Now No 12/15/24 15:07 Gestational Age [...] Unkno wn Rx 01/23 (Comfort EZ Pen Kent) fluticasone propionate 50 2 spray intranasal DAILY [...] MD Cosigner Signature: Date CC: ~ Signed [facility]04-04-2025 History and physical note Author eVnus Reveles [facility] Note Date/Time December 12, 2024 9:58 am [facility] Medical Records Department [address] [place] [address] History & Physical Exam 12/12/24 0958 MR#: [id number] Acct: [id number] Name: VLAD SIDDIQI Rep #:[id number] : 1960 64 From: Venus OVIEDO PCP: Dr. Kacey Navarro MD Status:TN E [facility] Location: [facility] History and Physical History and Physical Patient [...] - (11/05/2024) right shoulder injury Surgical Hx: [place] Teeth Carpal Tunnel Release RT - (05/29/2013) DR GARCIA @ [facility] Left CTR 06-12-13 [facility] [address] Garcia Knee Arthroscopy LT - (02/23/2016) Dr Vandana Stone @ [facility] L4-5 (bilateral) Transforaminal Epidural Steroid Injection - (02/28/2022) Dr Ale Chris @ [facility] Lumbar Fusion - (02/2023) L4-5 Anesthesia Complications: None Assistive Devices: Glasses - READING, Cpap Reviewed, no changes. 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 Personal Habits: [...] Can: Positive/neg Caldwell Test (R/L): Positive/ neg Bartow's Test (R/L): Positive/ neg Yergusons Test (R/L): [...] No acutebony injury identified. MRI reviewed from [place] 11/19/24 right shoulder See report for full [...] ___ Dictated on admission Date: Time: Signature: 12/12/24957 <Electronically signed by Venus OVIEDO> Cosigner Signature (if applicable): CC: IVELISSE Freeman; Dr. Kacey Navarro MD~ Signed [facility] Work Phone: 1(773) 187-266904-04-2025 History and physical note [facility] Medical Records Department [address] [place] [address] History & Physical Exam 12/12/24957 MR#: [id number] Acct: [id number] Name: VLAD SIDDIQI Rep #:[id number] : 1960 64 From: Venus OVIEDO PCP: Dr. Kacey Navarro MD Status:TN E [facility] Location: [facility] History and Physical History and Physical Patient [...] - (11/05/2024) right shoulder injury Surgical Hx: [place] Teeth Carpal Tunnel Release RT - (05/29/2013) DR GARCIA @ [facility] Left CTR 10-3-13 [facility] [address] Garcia Knee Arthroscopy LT - (02/23/2016) Dr Vandana Stone @ [facility] L4-5 (bilateral) Transforaminal Epidural Steroid Injection - (02/28/2022) Dr Ale Chris @ [facility] Lumbar Fusion - (02/2023) L4-5 Anesthesia Complications: None Assistive Devices: Glasses - READING, Cpap Reviewed, no changes. SOCIAL HISTORY: Social History: Marital: .Occupation: [employer].Work Status: Currently Working.Hand Dominance: Right-handed. Personal Habits: [...] Can: Positive/neg Caldwell Test (R/L): Positive/ neg Bartow's Test (R/L): Positive/ neg Yergusons Test (R/L): neg / neg Speeds (R/L): Positive/ neg Apprehension (R/L): neg /neg Belly press (R/L): Positive/neg Abduction (R/L): 5/5 / 5/5 ER(R/L): 5/ / 5/5 IR (R/L): // 5/5 Biceps (R/L):/ / 5/5 Triceps (R/L):/ / 5/5 Intrinsics (R/L): / / 5/5 Sensation: Subjective normal median / ulnar / [...] No acutebony injury identified. MRI reviewed from [place] 11/19/24 right shoulder See report for full [...] on admission Date: Time: Signature: [facility]/12/24 [facility]958 [facility] CC: IVELISSE Freeman; Dr. Kacey Navarro MD~ Signed [facility]04-04-2025 [facility] Medical Records Department [address] [place] [address] History Physical Exam 12/12/24957 MR#: [id number] Acct: [id number] Name: VLAD SIDDIQI Rep #: [id number] : 1960 64 From: Venus OVIEDO PCP: Dr. Kacey Navarro MD Status:PRE [facility] Location: [facility] History and Physical History and Physical Patient [...] - (11/05/2024) right shoulder injury Surgical Hx: [place] Teeth Carpal Tunnel Release RT - (05/29/2013) DR GARCIA @ [facility] Left CTR 06-12-13 [facility] [address] Garcia Knee Arthroscopy LT - (02/23/2016) Dr Vandana Stone @ [facility] L4-5 (bilateral) Transforaminal Epidural Steroid Injection - (02/28/2022) Dr Ale Chris @ [facility] Lumbar Fusion - (02/2023) L4-5 Anesthesia Complications: None Assistive Devices: Glasses - READING, Cpap Reviewed, no changes. 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 Personal Habits: [...] abdomen: soft, nontend (more content not included)... [facility]06-07-2023 NoteHNO ID: [id number] Author: Carmen Kimble PA-C Service: Orthopaedic Surgery Author Type: Physician Tire Trucker Type: Progress Notes Filed: 02/14/2023 8:18 AM [...] Prophylaxis/Anticoagulants 02/13/23 1300 vte pharmacologic prophylaxis contraindicated ([place]) 02/13/23 1300 pneumatic compression stockings ([place], [place]) 02/13/23 1300 graduated compression stockings ([place]) 02/13/23 1300 activity - mobilize patient ([place], [place]) VTE Prophylaxis: VTE prophylaxis appropriate SIGNATURE: Carmen Kimble PA-C PATIENT NAME: Vlad Siddiqi DATE: February 14, 2023 TIME: 8:16 [facility]06-06-2023 NoteHNO ID: [id number] Author: Dany Alvarez APRN.LIQUOR GRINDING MILL OPERATOR Service: ? Author Type: Nurse Split Leather Department Supervisor Type: Anesthesia Procedure Notes Filed: 02/13/2023 8:21 AM Note Text: ANESTHESIOLOGY PROCEDURE NOTE Airway General Information Procedure Start Time/Medication Administration: 02/13/2023 7:51 AM Procedure End Time: 02/13/2023 7:51 AM Patient location during procedure: OR Timeout Performed Pre-procedure: timeout performed Consent Obtained: Yes Patient identity confirmed: arm band Staffing LIQUOR GRINDING MILL OPERATOR: Dany Alvarez APRN.LIQUOR GRINDING MILL OPERATOR Performed by: SHAWNEE Indications and Patient Condition [...] February 13, 2023 TIME: 8:17 AM CSN: [id number]23 NoteHNO ID: [id number] Author: Gretta Hernandez RN Service: Nursing Author [...] 5325 mg per tablet PRN if needed ibauinvfpug-uoclnejss-izahzdzq (TRELEGY ELLIPTA) 100-62.5-25 mcg inhalation powder Use [...] inpn DO NOT TAKE MORNING OF SURGERY Zelienople-3 Fatty Acids 500 mg cap DO NOT [...] Ensure Pre-Surgery (given by ARIANA or your ), fruit juice without pulp (apple/cranberry), clear tea, [...] directed. Bring copy of Living Will/Power of Band Cutting Machine Operator. Do not smoke or chew. If you [...] the Surgery Center. UPON ARRIVAL: Access to [facility] is located on [address] [place] [address]. [employer] parking is available for your convenience from [...] you. The preoperative staff (more content not included)...[facility]05-30-2023 NoteHNO ID: [id number] Author: Ada Flores MD Service: ? Author Type: Physician Type: Progress Notes Filed: 02/06/2023 3:16 PM Note Text: Summary: MEDICAL, PULMONARY AND ENDO CLERANCES Medical: optimized Pulmonary: Doing very well on current treatment without need for rescue inhaler Endocrinology: 7.[address] [facility]05-24-2023 NoteHNO ID: [id number] Author: Juan Villagomez PA-C Service: ? Author Type: Physician Tire Trucker Type: Progress Notes Filed: 02/02/2023 3:43 PM [...] back H/O cardiovascular stress test 01/23/2023 at [facility] Herpes zoster without mention of complication [...] DX W/COLLJ SPEC WHEN PFRMD 09/13/2006 repeat [id number] COLONOSCOPY FLX DX W/COLLJ SPEC WHEN PFRMD [...] twice daily as needed (pain). 5-325mg Yes wstwnfiecut-pqwpwukig-mkeffybn (TRELEGY ELLIPTA) 100-62.5-25 mcg inhalation powder Inhale [...] As needed per implanted glucose monitor Yes Zelienople-3 Fatty Acids 500 mg cap Take 1,000 mg by mouth twice daily. Yes lisinopril (ZESTRIL, PRINIVIL) 20 mg tablet Take 20 mg by mouth every morning. Yes atorvastat (more content not included)...[facility]05-24-2023 NoteHNO ID: [id number] Author: Juan Villagomez PA-C Service: ? Author Type: Physician Tire Trucker Type: Progress Notes Filed: 01/31/2023 10:34 AM [...] 5325 mg per tablet PRN if needed ksicwzcaebj-eqtrdrelz-pgmxrmhl (TRELEGY ELLIPTA) 100-62.5-25 mcg inhalation powder Use [...] inpn DO NOT TAKE MORNING OF SURGERY Zelienople-3 Fatty Acids 500 mg cap DO NOT [...] updated instructions for the morning of your procedure.[facility]05-24-2023 NoteHNO ID: [id number] Author: Ada Flores MD Service: ? Author Type: Physician Type: Progress Notes Filed: 01/31/2023 10:34 AM Note Text: 02/13/23 L4/5 PLF - [place] 63 yo [place] man, non-smoker. PMHx of DM-2, insulin requiring, with neuropathy. HTN, HLP, DEION, asthmaVib[facility]ty Hospital05-09-2023 Miscellaneous Notes* Telephone Encounter - Mychal Tiffany - 01/16/2023 10:50 AM EDT Patient notified our instructions state no fiber diet to decrease the amount of stool being made toallow a full clean out for procedure. Failure to be cleaned out could result in not being able to complete procedure. Patent aware and verbalized understanding. Would like to proceed with procedure. Mychal Allen Supervisor * Telephone Encounter - Mychal Allen - 01/08/2023 11:37 AM EDT Patient called in stating his diabetic doctor has an issue with no fiber - more protein diet leading up to colonoscopy due to sugar levels. Patient asking what to do Please advise Mychal Allen Supervisor * Telephone Encounter - Mychal Allen - [...] if this would interfere with colonoscopy at [facility] on 01/15/2023 Please advise Thank you Mychal Allen Supervisor documented [facility]23 NoteHNO ID: [id number] Author: Lillian Olivarez RN Service: ? Author Type: Registered Nurse Type: Nursing Progress Note Filed: 01/15/2023 9:14 AM Note Text: Patient checked his blood glucose with Vish, result 205[facility]05-[facility]23 NoteHNO ID: [id number] Author: Lillian Olivarez RN Service: ? Author Type: Registered Nurse Type: Nursing Progress Note Filed: 01/15/2023 9:10 AM Note Text: Patient resting, noted to be passing small amounts of air rectally.[facility]05-08-2023 Nurse Note* Lillian Olivarez RN - 01/15/2023 [...] comfortably on left side. documented in this encounterHol[facility]-2023 History and physical note * Juan Guallpa [...] DX W/COLLJ SPEC WHEN PFRMD 09/13/06 repeat [id number] COLONOSCOPY FLX DX W/COLLJ SPEC WHEN PFRMD [...] at lunch, 30 units at supper. Insulin Kent, Disposable, (PEN NEEDLES) 31 gauge x 1/4 ndle For insulin injection 3x daily. Zelienople-3 Fatty Acids 500 mg cap Take 1,000 [...] visit. ALLERGIES: Adhesive Tape (Rosins), Byetta [Exenatide], Idabel, Grass Pollen, Penicillins, Sulfa (Sulfonamide Antibiotics), Thiazides, [...] entered by the nurse and reviewed by md Nursing Notes: Dinorah Bourne LPN 10/17/2022 3:41 [...] patient was offered a surgery/procedure at a [facility] facility. I have counseled the patient regarding [...] which included preparing to see the patient, vfxg-vl-znka patient care, completing clinical documentation, obtaining and/or [...] 2023 TIME: 8:01 AM documented in this encounterHolzer [facility]03-17-2023 Miscellaneous Notes* Telephone Encounter - Concetta Kumar - 11/24/2022 3:00 PM EDT Patient called and canceled his colonoscopy screening due to finances. documented in this encounterHolzer [facility]02-07-2023 NoteHNO ID: [id number] Author: Sandy Kessler PA-C Service: ? Author Type: Physician Tire Trucker Type: Progress Notes Filed: 10/17/2022 5:34 PM [...] DX W/COLLJ SPEC WHEN PFRMD 09/13/06 repeat [id number]-[id number] COLONOSCOPY FLX DX W/COLLJ SPEC WHEN PFRMD [...] at lunch, 30 units at supper. Insulin Kent, Disposable, (PEN NEEDLES) 31 gauge x 1/4 ndle For insulin injection 3x daily. Zelienople-3 Fatty Acids 500 mg cap Take 1,000 [...] visit. ALLERGIES: Adhesive Tape (Rosins), Byetta [Exenatide], Idabel, Grass Pollen, Penicillins, Sulfa (Sulfonamide Antibiotics), Thiazides, [...] Diabetes Paternal Grandfather REVIEW (more content not included)...[facility]02-07-2023 History of Present illness Narrative* Sandy Kessler [...] DX W/COLLJ SPEC WHEN PFRMD 09/13/06 repeat s0f-SNo COLONOSCOPY FLX DX W/COLLJ SPEC WHEN PFRMD [...] at lunch, 30 units at supper. Insulin Kent, Disposable, (PEN NEEDLES) 31 gauge x 1/4 ndle For insulin injection 3x daily. Zelienople-3 Fatty Acids 500 mg cap Take 1,000 [...] visit. ALLERGIES: Adhesive Tape (Rosins), Byetta [Exenatide], Idabel, Grass Pollen, Penicillins, Sulfa (Sulfonamide Antibiotics), Thiazides, [...] entered by the nurse and reviewed by md Nursing Notes: Dinorah BourneBARTOLO 10/17/2022 3:41 PM Signed REVIEW OF SYSTEMS: [...] patient was offered a surgery/procedure at a [facility] facility. I have counseled the patient regarding [...] which included preparing to see the patient, dquq-in-jjhg patient care, completing clinical documentation, obtaining and/or reviewing separately obtained history, performing a medically appropriate examination, counseling and educating the pat ient/family/caregiver, and ordering medications, tests, or procedures. Sandy Kessler PA-C documented in this encounterHolzer Medical [facility]02-07-2023 Nurse Note* Dinorah Bourne LPN - 10/17/2022 3:39 PM EST REVIEW OF [...] LPN documented [facility]+Reason for visit Narrative* Chief Complaint 3 M FU 3 M FU PRE PROCEDURE PRE PROCEDURE Reason for Visit Non-proliferative di abetic retinopathy, both eyes Benign essential hypertension Diabetes mellitus Mixed hyperlipidemia Obesity Benign essential hypertension Diabetes mellitus Mixed hyperlipidemia Obesity [facility] Work Phone: Evaluation + Plan note No data available for this section [facility] Evaluation + Plan note Future Appointments Appointment Date:05/16/2022 10:30:00 AM Scheduled Provider:KACEY AUSTIN MD Location:[facility] PM Appointment Type:PM OV [facility] Evaluation note* Diagnosis Onset Date Resolution Status Benign essential hypertension chronic Diabetes mellitus chronic Mixed hyperlipidemia chronic Obesity chronic [facility] Work Phone: Evlfyation note* Diagnosis Onset Date Resolution Status Degenerative joint disease (DJD) of lumbar spine acute Diabetes mellitus chronic Benign essential hypertension chronic Diabetes mellitus chronic Obesity [facility] Work Phone: Evaluation note* Diagnosis Encounter for screening for malignant neoplasm of colon- Primary Special screening for malignant neoplasms, colon Personal history of colonic polyps documented in this encounter [facility] note* Diagnosis Onset Date Resolution Status Non-proliferative diabetic retinopathy, both eyes acute Benign essential hypertension chronic Diabetes mellitus chronic Mixed hyperlipidemia chronic Obesity chronic Benign essential hypertension chronic Diabetes mellitus chronic Mixed hyperlipidemia chronic Obesity [facility] Work Phone: Evaluation note* Diagnosis Onset Date Resolution Status Benign essential hypertension chronic Diabetes mellitus chronic Mixed hyperlipidemia chronic Non-proliferative diabetic retinopathy, both eyes chronic Obesity [facility] Work Phone: Evaluation note* Diagnosis Encounter for screening for malignant neoplasm of colon- Primary Special screening for malignant neoplasms, colon Personal history of colonic polyps Family history of colon cancer Family history of malignant neoplasm of gastrointestinal tract documented in this encounter [facility] noteNo assessment information availableW[facility] Work Phone: Hospital Discharge instructions No data available for this section [facility] Progress note No data available for this section [facility] Reason for referral (narrative)* Outpatient Procedure (Routine) - Closed Specialty Diagnoses / Procedures Referred By Anthony t Referred To Contact [facility] Diagnoses Personal history of colonic polyps Family history of colon cancer Procedures COLONOSCOPY SCREENING COLONOSCOPY FLX DX W/COLLJ SPEC WHEN PFRMD Sandy Kessler PA-C [address] [place] [address] [facility] [address] [place] [address] [place] [address] Referral ID Status Reason Start Date Expiration Date V isits Requested Visits Authorized [id number] Closed Auto-Generate d Referral 10/17/2022 10/17/2023 1 1 [facility] for referral (narrative)No reason for referral information availableWSelect [facility] [place] Work Phone: Reason for visit Narrative* Outpatient Procedure (Routine) - Closed Specialty Diagnoses / Procedures Referred By Anthony t Referred To Contact [facility] Diagnoses Personal history of colonic polyps Family history of colon cancer Procedures COLONOSCOPY SCREENING COLONOSCOPY FLX DX W/COLLJ SPEC WHEN PFRMD Sandy Kessler PA-C [address] [place] [address] [facility] [address] [place] [address] Referral ID Status Reason Start Date Expiration Date V isits Requested Visits Authorized [id number] Closed Auto-Generate d Referral 10/17/2022 10/17/2023 1 1 [facility] Chief Complaint and Reason for Visit Chief [...] M FU January 22, 2025 3:24p m Chief Complaint Admit Date thyroid nodule May 26, 2025 7:03am Family History No Family History Records Found [...] Do you have a Healthcare Power of Band Cutting Machine Operator? Yes December 15, 2024 3:07pm Name of Medical Power of Band Cutting Machine Operator December 15, 2024 3:07pm Medications Administered Section [...] DIRECTED, Starting on Sun01/15/23 at 0830, Until 5/8/23 at 1229, DOSING DIRECTED BY PHYSICIAN FOR [...] December 25, 2024 End: December 25, 2024 Partner Alliance Manager Relationship Specialty Start Date End Date Rj Chaidez MD PCP - General Family Medicine 04/03/13 Partner Alliance Manager Relationship Specialty Start Date End Date Rj Chaidez MD PCP - General Family Medicine 04/03/13 Partner Alliance Manager Relationship Specialty Start Date End Date Rj [...] Pr ovider, Attending Provider, Referring Provider Active Partner Alliance Manager Relationship Specialty Start Date End Date Kacey NavarroHYUN [address] [address] PCP - General Family Medicine 02/06/23 Team [...] Pr ovider, Attending Provider, Referring Provider Active Partner Alliance Manager Relationship Specialty Start Date End Date Rj Chaidez MD PCP - General Family Medicine 04/03/13 02/05/23 Team Status: Active Member Role Status Dates Dr. Kacey Navarro MD Primary Care Provider Active PREDATORY GAME HUNTER. Dionne Sr Attending Provider, Referring Provid er Active Team Status: Inactive Member Role Status Dates Dr. Kacey Navarro MD Primary Care Provider Active PREDATORY GAME HUNTER. Dionne Sr Attending Provider, Referring Provid er [...] January 13, 2025 Dr. Kacey Navarro MD Referring Provider Active Start: January 13, [...] January 22, 2025 End: January 22, 2025 Team Status: Active Member Role/Relationship Status Dates Dr. Kacey Navarro MD Primary care physician Active Team Status: Inactive Member Role/Relationship Status Dates Dr. Kacey Navarro MD Primary care physician Active Start: May 19, 2025 End: May 19, 2025 Dr. Kacey Navarro MD Attending physician Active Start: May 19, 2025 End: May 19, 2025 Dr. Kacey Navarro MD Referring Provider Active Start: May 19, 2025 End: May 19, 2025 Team Status: Active Member Role/Relationship Status Dates Dr. Kacey Navarro MD Primary care physician Active Start: May 26, 2025 Dr. Kacey Navarro MD Attending physician Active Start: May 26, 2025 Dr. Kacey Navarro MD Referring Provider Active Start: May 26, 2025 Team Status: Inactive Member Role/Relationship Status Dates Dr. Kacey Navarro MD Primary care physician Active Start: May 26, 2025 End: May 26, 2025 Dr. Kacey Navarro MD Attending physician Active Start: May 26, 2025 End: May 26, 2025 Dr. Kacey Navarro MD Referring Provider Active Start: May 26, 2025 End: May 26, 2025 Care Team (unrecognized sect ion and content) Care Team Personnel Name: RJ CHAIDEZ MD Member Role: Primary Care Physician Address: Address: [address] [place] [address] Care Team Related Persons Name: MICHAEL SIDDIQI Care Team Personnel Name: RJ CHAIDEZ MD Member Role: Primary Care Physician Address: Address: [address] [place] [address] Care Team Related Persons Name: MICHAEL SIDDIQI Care Team Personnel Name: RJ CHAIDEZ MD Member Role: Primary Care Physician Address: Address: [address] [place] [address] Care Team Related Persons Name: MICHAEL SIDDIQI Source Comments (unrecognize d section and content) In the event this informatio n is protected by the [facility] Confidentiality of Alcohol and Drug Abuse Patient Records regulations: The Federal rules restrict any use of the information to criminally investigate or prosecute any alcohol or drug abuse patient.[facility] the event this information is protected by the Federal Confidentiality of Alcohol and Drug Abuse Patient Records regulations: The Federal rules restrict any use of the information to criminally investigate or prosecute any alcohol or drug abuse patient.[facility] the event this information is protected by the Federal Confidentiality of Alcohol and Drug Abuse Patient Records regulations: The Federal rules restrict any use of the information to criminally investigate or prosecute any alcohol or drug abuse patient.[facility] the event this information is protected by the Federal Confidentiality of Alcohol and Drug Abuse Patient Records regulations: The Federal rules restrict any use of the information to criminally investigate or prosecute any alcohol or drug abuse patient.[facility] the event this information is protected by the Federal Confidentiality of Alcohol and Drug Abuse Patient Records regulations: The Federal rules restrict any use of the information to criminally investigate or prosecute any alcohol or drug abuse patient.[facility] Reason for Visit (unrecogniz ed section and [...] FOR SPINE SURGERY [facility]ORSE[facility] [address] [place] [address] Referral ID Status Reason Start Date Expiration Date Visits Re quested Visits Authorized [id number] 1 1 (unrecognized sect ion and content) No Status Records FoundNo Status Records FoundNo Status Records FoundNo Status Records FoundNo Status Records Found INFORMATION SOURCE (unrecogn ized section and content) DATE CREATED AUTHOR 01/14/2023 [facility] ([place]) DATE CREATED AUTHOR AUTHOR'S ORGANIZ ATION 02/19/2023 [facility] DATE CREATED AUTHOR AUTHOR'S ORGANIZ ATION 02/19/2023 [facility] DATE CREATED AUTHOR AUTHOR'S ORGANIZ ATION 06/04/2025 [facility] DATE CREATED AUTHOR AUTHOR'S ORGANIZ ATION 06/15/2025 [facility] FOR RECORDS PERTAINING TO PATIENTS WHO ARE [...] BE BASED ON THE PRIMARY CLINICAL RECORDS. [employer] [facility]. provides no warranty or guarantee of the accuracy or completeness of information in this document.
--- NOTE | 2025-06-15 12:33 | STRESSREP ---
Stress Test Report Pharmacologic myocardial perfusion stress test. 65-year-old male with a history of dyspnea. Resting EKG demonstrates normal sinus with a right bundle branch block with a rate of 89 bpm. Resting blood pressure is 140/78 mmHg. 0.4 mg of regadenoson was infused per usual protocol followed by rapid intravenous saline flush injection. Continuous EKG monitoring was performed. The maximum heart rate was 114 bpm which was 73% of max impacted heart rate the maximum workload was 1 metabolic equivalent. At rest there were no ST or T wave changes noted to suggest ischemia and at peak infusion nonspecific ST changes were noted which did not meet the criteria for ischemia. No clinical angina is noted. The final blood pressure was 138/72 mmHg. Myocardial perfusion protocol. 14.5 mCi of technetium 99m sestamibi was injected at rest. 0.4 mg of regadenoson was infused per usual protocol. At peak infusion 46.9 mCi of technetium 99m sestamibi was injected stress images were obtained stress and rest images were reconstructed and compared in the short axis vertical long and horizontal long axis. Gated images were also obtained. Perfusion SPECT analysis: Review of the stress images demonstrate normal uptake of tracer noted in all areas of the myocardium. The resting images similar demonstrated normal uptake of tracer noted in all areas of the myocardium. No areas of reversibility are noted to suggest ischemia and no previous infarct is noted. Gated SPECT analysis: The gated ejection fraction is 84%. Conclusion: Normal pharmacologic myocardial perfusion stress test. Preserved ejection fraction.
== END | disposition home or self-care (01) ==
LOC: CVS 06:42
PROVIDERS: PCP Family Medicine; Referring Provider Family Medicine; Visit Provider Family Medicine
DX: R06.02 Shortness of breath (principal)
CPT/HCPCS: 78452; 93017; 93306; A9500; Q9957; A4216; C8929; J2785